=== PATIENT | female | born 1970 | race Caucasian/White ===

== ENCOUNTER 2024-03-07 11:55 | Outpatient (OUT) | payer OTHER, SELFPAY ==
[2024-03-07 12:39] LABS: Basophils Absolute Auto 0.1 10^3/uL (0.0-0.1); Basophils Percent Auto 1.6 % (0.2-2.0); Eosinophils Percent Auto 0.3 % (0.9-7.0); Hematocrit 51.6 % (36.0-48.0); Hemoglobin 17.6 g/dL (12.0-16.0); Immature Granulocytes Abs Auto 0.03 10^3/uL (0.00-0.03); Immature Granulocytes Pct Auto 0.5 % (0.0-0.5); Lymphocytes Absolute Auto 1.4 10^3/uL (1.2-3.8); Lymphocytes Percent Auto 22.8 % (20.5-60.0); Mean Corpuscular HGB Conc 34.1 g/dL (29.9-35.2); Mean Corpuscular Hemoglobin 33.3 pg (26.7-34.0); Mean Corpuscular Volume 97.7 fL (81.0-99.0); Mean Platelet Volume 9.6 fL (9.5-13.5); Monocytes Absolute Auto 0.4 10^3/uL (0.3-0.8); Monocytes Percent Auto 6.2 % (1.7-12.0); Neutrophils Absolute Auto 4.3 10^3/uL (1.4-6.5); Neutrophils Percent Auto 68.6 % (43.0-75.0); Platelet Count 336 10^3/uL (150-450); Red Blood Count 5.28 10^6/uL (4.20-5.40); Red Cell Distribution Width 13.1 % (11.0-15.0); White Blood Count 6.3 10^3/uL (4.0-11.0)
[2024-03-07 15:59] LABS: Estimated Average Glucose 88 mg/dL; Glycohemoglobin A1C 4.7 % (4.5-6.2)
[2024-03-07 16:03] LABS: Alanine Aminotransferase 62 U/L (14-59); Albumin Globulin Ratio 1.5; Albumin Level 4.7 g/dL (3.4-5.0); Alkaline Phosphatase 89 U/L (46-116); Anion Gap 16.9; Aspartate Amino Transferase 57 U/L (15-37); BUN Creatinine Ratio 8.2; Bilirubin Total 0.6 mg/dL (0.2-1.0); Calcium 9.6 mg/dL (8.5-10.1); Carbon Dioxide 26.1 mmol/L (21.0-32.0); Chloride 99 mmol/L (98-107); Chol HDL Ratio 1.7; Cholesterol 195 mg/dL (<=200); Estimated GFR (African America >60 (>=60); Estimated GFR (Non-African Ame >60 (>=60); Free T3 2.81 pg/mL (2.18-3.98); Globulin 3.2 g/dL; Glucose 79 mg/dL (74-106); HDL Cholesterol 117 mg/dL (40-60); Sodium 138 mmol/L (136-145); Total Protein 7.9 g/dL (6.4-8.2); Triglycerides 41 mg/dL (<=150); VLDL CHOLESTEROL 8.2 mg/dL
[2024-03-08 05:10] LABS: Insulin 1.3 uIU/mL (2.6-24.9)
== END 2024-03-07 11:56 | disposition home or self-care (01) ==
LOC: LAB 12:00
PROVIDERS: PCP Nurse Practitioner Family; Visit Provider Nurse Practitioner Family
DX: J44.9 Chronic obstructive pulmonary disease, unspecified (principal)
CPT/HCPCS: 36415; 80053; 80061; 82306; 83036; 83525; 84436; 84443; 84481; 85025

== ENCOUNTER 2024-04-10 13:54 | Outpatient (OUT) | payer OTHER, SELFPAY ==
--- NOTE | 2024-04-10 13:54 | CA_ITS ---
Patient Name: ROSE CASTELLON MR#: [id number] : 1970 Exam Date: 04/10/2024 Ordering Doctor: KULWANT QUEEN M.D. ECHOCARDIOGRAM REPORT PROCEDURE: CA ECHO DOPPLER COMPLETE INDICATIONS: PÉREZ COMPARISON: None. DESCRIPTION: COMPLETE ECHOCARDIOGRAM Real-time transthoracic echocardiography with 2D, M-mode, spectral and color flow Doppler performed. QUALITY: Technical quality was good. LEFT VENTRICLE: Normal size. Mild concentric left ventricular hypertrophy. Global left ventricular systolic function is Normal. Visual estimation of left ventricular ejection fraction is 50-55%. No wall motion abnormalities. LV EF: 50-55% DIASTOLIC: Undetermined ATRIAL SEPTUM: appears intact LEFT ATRIUM: Severe dilatation. RIGHT ATRIUM: Mild dilatation. RIGHT VENTRICLE: Normal chamber size. Normal right ventricular systolic function. TRICUSPID VALVE:Normal mobility and thickness. No stenosis with trivial regurgitation. Mild pulmonary hypertension.RVSP 40mmHg MITRAL VALVE: Mildly thickened with normal mobility. No evidence of mitral valve stenosis. There is no mitral annular calcification. Mild mitral regurgitation. AORTIC VALVE: Normal trileaflet appearance. Thickened aortic valve. Normal leaflet mobility. No evidence of aortic valve stenosis. Mild to moderate aortic regurgitation. AORTIC ROOT: Normal diameter and appearance. PULMONIC VALVE:Normal thickness and mobility. No stenosis. Trivial regurgitation. PERICARDIUM: No evidence of pericardial effusion. IVC: Collapes with inspirations. Normal size. PLEURA: CONCLUSION: Left Ventricle: Normal size. Mild concentric left ventricular hypertrophy. Global left ventricular systolic function is Normal. Visual estimation of left ventricular ejection fraction is 50-55%. No wall motion abnormalities. Mild pulmonary hypertension. RVSP 40mmHg Left atrium severe dilatation. Mild mitral regurgitation Mild to moderate aortic regurgitation. Adult Echocardiography Procedure Report Left Ventricle LVEDD (3.7 - 5.6 cm): 5.34 cm LVESD (2.2 - 4.0 cm): 3.98 cm LVIVS thickness (0.6 - 1.2 cm): 1.09 cm LVPW thickness (0.5 - 1.0 cm): 1.15 cm e': 0.10 m/s E - e': 6.95 LVOT Max Gradient: 7.33 mm[Hg] LVOT Area (cm2): 1.35 m/s Peak Velocity (LVOT): 1.35 m/s Mean Velocity (LVOT): 0.83 m/s LVOT Diameter 1.79 cm Left Ventricular Ejection Fraction: 52.45 % Left Atrium LA Volume Index (2D A2C): 51.38 ml/m2 Left Atrium Systolic Dimension: 4.36 cm Mitral Valve MV E to A Ratio: 1.29, 1.33 MV Max Gradient: MV Mean Gradient: Mitral Valve A-Wave Peak Velocity: 0.51 m/s Mitral Valve E-Wave Peak Velocity: 0.66 m/s Cardiovascular Orifice Area: Right Ventricle RV Internal Diastolic Dimension: 3.59 cm Aorta AO Root Diam: 3.15 cm Ascending Ao Diam: 2.80 cm Aortic Valve AoV Area (Peak Gerson): 2.18 cm2, 2.18 cm2 AoV Area (VTI): 2.53 cm2, 2.53 cm2 Deceleration Chelan: 2.67 m/s2 Pressure Half-Time: 510.14 ms Peak Velocity(Antegrade Flow): 1.56 m/s Peak Gradient(Antegrade Flow): 9.71 mm[Hg] Mean Velocity(Antegrade Flow): 1.02 m/s Mean Gradient(Antegrade Flow): 4.61 mm[Hg] Velocity Time Integral: 29.28 cm Tricuspid Valve Peak Velocity (Regurgitant Flow): 2.28 m/s, 2.80 m/s, 3.03 m/s Peak Velocity: Pulmonic Valve Mean Gradient: 2.30 mm[Hg], 2.38 mm[Hg], 2.79 mm[Hg] Mean Velocity: 0.71 m/s, 0.73 m/s, 0.79 m/s Peak Velocity: 1.05 m/s Peak Gradient: 4.09 mm[Hg], 4.09 mm[Hg], 5.09 mm[Hg] Right Atrium Right Atrium Systolic Pressure: 42.84 ml, 42.84 ml Dictated by: Marley Bowie MD on 04/10/2024 at 16:57 Approved by: Marley Bowie MD on 04/10/2024 at 17:08
== END 2024-04-10 13:55 | disposition home or self-care (01) ==
LOC: CARD 13:54
PROVIDERS: PCP Nurse Practitioner Family; Visit Provider Internal Medicine Cardiovascular Disease
DX: R06.09 Other forms of dyspnea (principal)
CPT/HCPCS: 93306; 93356

== ENCOUNTER 2025-05-14 10:02 | Outpatient (OUT) | payer OTHER, SELFPAY ==
--- OUTSIDE RECORDS SUMMARY | 2025-05-14 10:20 | XMS_ITS | CCD ---
Author Organization [facility] CliniSyny Care Team Providers Care Ophthalmic Lens Inspector Name Role Phone PAY, GUNNER Unavailable Unavailable PAY, GUNNER Unavailable Unavailable PAY, GUNNER Unavailable Unavailable NBA WHITE Unavailable Unavailable LISBET SALCEDO Unavailable Unavailable LISBET SALCEDO Unavailable Unavailable REQUEST, NONE LISTED Unavailable Unavailable LISBET SALCEDO Unavailable Unavailable TITI THURMAN Unavailable Unavailable RISHABH BUENO Unavailable Unavailable Marvin Erazo Unavailable Emanuel GONZALEZ-AUDITOR, Ligia S Primary Care Provider SILVIA HAMILTON Attending Unavailable JORDEN BOSWELL Referring Unacurtis PEGUEROMER, LIGIA S Primary Care Unavailable Elbert RADIOTELEGRAPH OPERATOR-Jorden LYNNE Primary Care Provider Elbert GONZALEZJorden LYNNE Primary Care Provider Emanuel RADIOTELEGRAPH OPERATOR-MAGED Ligia S Primary Care Provider Cindy Perez MD Primary Care Provider SHAHRIAR ROSALES Attending Unavailable EMANUEL, LIGIA S Referring Unavailable EMANUEL, LIGIA S Primary Care Unavailable EMANUEL, LIGIA S Referring Unavailable EMANUEL, LIGIA S Primary Care Unavailable SHAHRIAR ROSALES Referring Unavailable EMANUEL, LIGIA S Primary Care Unavailable EMANUEL, LIGIA S Referring Unavailable DELFIN, CINDY Primary Care Unavailable KAREN DIAMOND Admitting Unavailable KAREN DIAMOND Attending Unavailable DELFIN, CINDY Primary Care Unavailable TRESA RENO Attending Unavailable SELINS AZIZ Referring Unavailable EMANUEL, LIGIA S Primary Care Unavailable SELINSMARVIN Referring Unavailable EMANUEL, LIGIA S Primary Care Unavailable CHAPIS EDGAR Referring Unavailable EMANUEL, LIGIA S Primary Care Unavailable LOVE RITTER Attending Unavailable LOVE RITTER Referring Unavailable EMANUEL, LIGIA S Primary Care Unavailable SILVIA HAMILTON Referring Unavailable EMANUEL, LIGIA S Primary Care Unavailable DELFIN, CINDY Referring Unavailable EMANUEL, LIGIA S Primary Care Unavailable DELFIN, CINDY Referring Unavailable EMANUEL, LIGIA S Primary Care Unavailable ANGELES PERALES Attending Unavailable DELFIN, CINDY Referring Unavailable DELFIN, CINDY Primary Care Unavailable SHAHRIAR ROSALES Attending Unavailable SHAHRIAR ROSALES Referring Unavailable DELFIN, CINDY Primary Care Unavailable ANGELES PERALES Attending Unavailable DELFIN, CINDY Referring Unavailable DELFIN, CINDY Primary Care Unavailable SHAHRIAR ROSALES Referring Unavailable DELFIN, CINDY Primary Care Unavailable JOSE MANUEL GALICIA Attending Unavailable VENNEPUREDDY, LUIS Referring Unavailable DELFIN, CINDY Primary Care Unavailable VENNEPUREDDY, LUIS Attending Unavailable VENNEPUREDDY, LUIS Referring Unavailable DELFIN, CINDY Primary Care Unavailable VENNEPUREDDY, LUIS Attending Unavailable SELF Referring Unavailable DELFIN, CINDY Primary Care Unavailable Allergies Allergy Classification Reported Allergen(s) Allergy Type Date of Onset Reaction(s) Facility (5 sources) Gadolinium-Cont aining Contrast Media; Translations: [GADOLINIUM-CON TAINING CONTRAST MEDIA] Propensity to adverse reactions to drug 5 Hives, Other (See Comments) [facility] Medications Current Medications Medication Drug Class(es) Dates Sig (Normalized) Sig (Original) aspirin 81 mg delayed release oral tablet (8 sources) Platelet Aggregation Inhibitor, Nonsteroidal Anti-inflammatory Drug Start: 12-03-2024 take 1 tablet by mouth once daily Aspirin 81 mg tablet,delayed release (DR/EC) Active 81 MG PO Daily December 03, 2024 12:00am cholecalciferol 0.05 mg oral tablet (20 sources) Vitamin D Start: 06-18-2024 take 1 tablet by mouth once daily Cholecalciferol (Vitamin D3) 50 mcg (2,000 unit) tablet Active 50 MCG PO Daily June 18, 2024 1:00am Start: 01-10-2020 End: 04-18-2025 take 1 tablet by mouth in the morning cholecalciferol, vitamin D3, 2,000 units tablet Take 1 tablet (2,000 Units total) by mouth in the morning. 30 tablet 1 04/18/2025 Active take 1 capsule by mo [facility] every twenty-four hours Vitamin D3 50 MCG (1999 UT) 1 capsule Orally Once a day Active doxycycline hyclate 100 mg oral capsule (3 sources) Tetracycline-class Drug Start: 03-06-2025 End: 03-20-2025 take 1 capsule by mouth in the morning, then take 1 capsule by mouth at bedtime doxycycline (VIBRAMYCIN) 100 mg capsule Take 1 capsule (100 mg total) by mouth in the morning and 1 capsule (100 mg total) before bedtime. Do all this for 14 days. 28 capsule 03/06/2025 03/17/2025 Discontinued medical marijuana (16 sources) medical marijuan a Inhale. Active medical marijuan a Inhale. 0 Active multivitamin (THERAGRAN) tablet (17 sources) Start: 04-18-2025 take 1 tablet by mouth in the morning multivitamin (THERAGRAN) tablet Take 1 tablet by mouth in the morning. 30 tablet 1 04/18/2025 Active Start: 05-02-2023 End: 04-18-2025 multivitamin (THERAGRAN) tab let 05/02/2023 04/18/2025 Discontinued (Reorder) Start: 05-02-2023 multivitamin ( THERAGRAN) tablet 05/02/2023 Active Start: 05-02-2023 take 1 tablet by bentley th once daily multivitamin (THERAGRAN) tablet TAKE 1 TABLET BY MOUTH EVERY DAY 05/02/2023 Active Start: 05-02-2023 take 1 tablet by bentley th once daily multivitamin (THERAGRAN) tablet TAKE 1 TABLET BY MOUTH EVERY DAY 0 05/02/2023 Active Multivitamin preparation (1 source) take 1 tablet by mouth once daily Multi Vitamin - 1 tablet Orally Once a day Active Multivitamin tablet (2 sources) Start: 06-18-2024 take 1 tablet by mouth once daily Multivitamin tablet Active 1 TAB PO Daily June 18, 2024 1:00am Start: 06-18-2024 take 1 tablet by bentley th once daily Multivitamin tablet Active 1 TAB PO Daily June 18, 2024 12:00am predniSONE 20 mg oral tablet (3 sources) Start: 03-06-2025 End: 03-20-2025 take 1 tablet by mouth once daily, then take 0.5 tablet by mouth once daily predniSONE (DELTASONE) 20 mg tablet Take 1 tablet (20 mg total) by mouth daily for 7 days, THEN 0.5 tablets (10 mg total) daily for 7 days. 11 tablet 03/06/2025 03/17/2025 Discontinued 60 actuat tiotropium 0.0025 mg/actuat inhalation spray (19 sources) Anticholinergic Start: 06-18-2024 Tiotropium Bro mide (Spiriva Respimat) 2.5 mcg/actuation mist Active INHALATION June 18, 2024 1:00am Start: 08-03-2021 take 2 puff(s) by mo uth once daily SPIRIVA RESPIMAT 2.5 mcg/actuation mist INHALE 2 PUFFS BY MOUTH DAILY 4 g 11 08/03/2021 Active take 2 puff(s) by in halation once daily Spiriva Respimat 2.5 MCG/ACT 2 puffs Inhalation Once a day Active Completed/Discontinued Medications Medication Drug Class(es) Dates Sig (Normalized) Sig (Original) albuterol 0.83 mg/ml inhalation solution (12 sources) beta2-Adrenergic Agonist Start: 09-26-2019 End: 03-07-2025 albuterol (PROVENTIL,VENTOLIN ) nebulizer solution 2.5 mg clotrimazole 10 mg/ml topical cream (12 sources) Azole Antifungal Start: 03-08-2023 End: 03-07-2025 clotrimazole (LOTRIMIN) 1 % cream 03/08/2023 03/07/2025 Discontinued (Therapy completed) Start: 03-08-2023 clotrimazole ( LOTRIMIN) 1 % cream APPLY TO THE AFFECTED AREA(S) TWICE DAILY NEEDED until healed 03/08/2023 Active Problems Active Problems Problem Classification Problem Date Documented Date Episodic/Chronic Alcohol-related disorders (1 source) Alcohol dependence, uncomplicated; Translations: [ALCOHOL DEPENDENCE UNCOMPLICATED] Onset: 05-01-2017 Chronic Anxiety disorders (1 source) Anxiety disorder, unspecified; Translations: [ANXIETY DISORDER UNSPECIFIED] Onset: 06-13-2017 Chronic Cancer of bronchus; lung (9 sources) Carcinoma of lung; Translations: [Malignant neoplasm of unspecified part of right bronchus or lung] Onset: 03-17-2025 03-17-2025 Chronic Chronic kidney disease (5 sources) Chronic kidney disease stage 3A ; Translations: [Stage 3a chronic kidney disease] 10-07-2023 Chronic Chronic kidney disease (2 sources) Chronic kidney disease; Translations: [Chronic kidney disease, stage 3a] Onset: 06-12-2024 Chronic obstructive pulmonary disease and bronchiectasis (20 sources) Chronic obstructive pulmonary disease, unspecified; Translations: [Chronic obstructive lung disease] Onset: 12-21-2016 12-21-2016 Chronic Coronary atherosclerosis and other heart disease (18 sources) Atherosclerotic heart disease of [place] coronary artery without angina pectoris; Translations: [Old myocardial infarction] Onset: 05-20-2014 04-01-2020 Chronic Disorders of lipid metabolism (19 sources) Mixed hyperlipidemia; Translations: [Mixed hyperlipidemia] Onset: 05-20-2014 10-07-2023 Chronic Essential hypertension (20 sources) Hypertensive disorder; Translations: [Essential (primary) hypertension] Onset: 06-16-2023 10-07-2023 Chronic Hypertension with complications and secondary hypertension (7 sources) Arteriolar nephrosclerosis; Translations: [Hypertensive chronic kidney disease with stage 1 through stage 4 chronic kidney disease, or unspecified chronic kidney disease] Onset: 06-12-2024 Chronic Lymphadenitis (2 sources) Hilar lymphadenopathy ; Translations: [Localized enlarged lymph nodes] Onset: 03-10-2025 03-06-2025 Episodic Miscellaneous mental health disorders (16 sources) Mental disorder; Translations: [Mental disorder, not otherwise specified] 08-25-2018 Chronic Nonspecific chest pain (18 sources) Chest pain; Translations: [Other chest pain] Onset: 04-15-2021 04-15-2021 Episodic Nutritional deficiencies (7 sources) Vitamin D deficiency; Translations: [Vitamin D deficiency, unspecified] Onset: 06-12-2024 Chronic Other female genital disorders (16 sources) History of abnormal cervical Papanicolaou smear ; Translations: [Personal history of other diseases of the female genital tract] 08-25-2018 Episodic Other lower respiratory disease (1 source) Hemoptysis; Translations: [Hemoptysis] 03-06-2025 Episodic Other lower respiratory disease (3 sources) Shortness of breath; Translations: [Shortness of breath] Onset: 03-06-2025 Episodic Other lower respiratory disease (2 sources) Hemoptysis; Translations: [Hemoptysis] Onset: 02-24-2025 Episodic Other lower respiratory disease (1 source) Cough Onset: 03-06-2025 Episodic Other lower respiratory disease (1 source) Wheezing Onset: 03-06-2025 Episodic Other lower respiratory disease (1 source) Shortness of breath Onset: 03-06-2025 Episodic Other nervous system disorders (16 sources) Paresthesia of hand ; Translations: [Paresthesia of skin] 08-25-2018 Episodic Other screening for suspected conditions (not mental disorders or infectious disease) (3 sources) CT of chest abnormal; Translations: [Abnormal findings on diagnostic imaging of other specified body structures] Onset: 03-06-2025 03-06-2025 Chronic Residual codes; unclassified (16 sources) Tobacco use and exposure - finding; Translations: [Tobacco use] 08-25-2018 Episodic Screening and history of mental health and substance abuse codes (1 source) Tobacco smoking behavior - finding 06-18-2024 Chronic Substance-related disorders (19 sources) Nicotine dependence, cigarettes, uncomplicated; Translations: [Drug abuse] Onset: 06-13-2017 08-25-2018 Chronic Unclassified (1 source) Annual Exam Onset: 08-05-2024 Unclassified (2 sources) Autogenerated Problem Onset: 03-07-2025 03-07-2025 Unclassified (1 source) Pulmonary nodule Onset: 03-10-2025 Unclassified (2 sources) New Patient Onset: 03-06-2025 Unclassified (1 source) Testing Onset: 03-06-2025 Past or Other Problems Problem Classification Problem Date Documented Date Episodic/Chronic Acute myocardial infarction (16 sources) Acute myocardial infarction; Translations: [Acute myocardial infarction, unspecified] Resolved: 06-16-2023 06-16-2023 Chronic Fluid and electrolyte disorders (1 source) Dehydration; Translations: [DEHYDRATION] Onset: 06-13-2017 Episodic Mood disorders (16 sources) Bipolar disorder; Translations: [Bipolar disorder, unspecified] Onset: 12-21-2016 Resolved: 06-20-2017 06-20-2017 Chronic Mood disorders (16 sources) Mood disorders Onset: 04-10-2019 04-10-2019 Nausea and vomiting (4 sources) Nausea with vomiting, unspecified; Translations: [NAUSEA WITH VOMITING UNSPECIFIED] Onset: 06-09-2017 Episodic Nonmalignant breast conditions (16 sources) Mammographic breast tissue appearance; Translations: [Dense breast tissue on mammogram] Onset: 05-19-2021 05-19-2021 Episodic Other aftercare (16 sources) Marijuana user; Translations: [Other intermediate (current) drug therapy] Onset: 12-21-2016 01-24-2019 Episodic Other screening for suspected conditions (not mental disorders or infectious disease) (5 sources) Patient encounter status; Translations: [Encounter for screening for malignant neoplasm of cervix] Onset: 06-19-2024 08-03-2023 Episodic Residual codes; unclassified (16 sources) At high risk for breast cancer; Translations: [Other specified personal risk factors, not elsewhere classified] Onset: 05-23-2022 05-23-2022 Episodic Residual codes; unclassified (16 sources) Family history of malignant neoplasm of uterus; Translations: [Family history of malignant neoplasm of other genital organs] Onset: 06-07-2023 06-07-2023 Episodic Screening and history of mental health and substance abuse codes (18 sources) Tobacco smoking behavior - finding; Translations: [Personal history of nicotine dependence] Onset: 05-19-2021 05-19-2021 Episodic Unclassified (1 source) Hypothermia, not associated with low environmental temperature; Translations: [HYPOTHERMIA NOT W/LOW ENVIR TEMP] Onset: 05-01-2017 Episodic Unclassified (1 source) Patient encounter status 06-18-2024 Results Test Name Value Interpretation Reference Range [facility] ([id number]) 1970 F Date Time Provider Department 05/12/25 DANIKA SAENZ During your visit today, we recorded the following information about you: Danika Saenz LSW 05/13/2025 11:04 AM Addendum SOCIAL WORK FOLLOW UP NOTE: [facility] Date of service:05/12/2025 Sean Maldonado is being seen for a follow up social work visit. Today's visit includes: patient TOPICS ADDRESSED: [facility] PLAN: Continue follow up as needed and Referral to community resource Assigned SW listed in Care Team tab: Yes SW was asked to refer Patient to the [facility]. Referral sent. .PSYCHOSOCIAL SCREENING ASSESSMENT Date of Service: May 13, 2025 Sean Maldonado is a 54 year old female being seen for initial social work assessment. Diagnosis: Lung Cancer New Primary Oncologist: Dr. Bah Radiation Oncologist: Dr. Jose Manuel Galicia Goals of Care: Curative intent Today's visit includes: self/patient Family History of Cancer: not discussed SUPPORT NETWORK: Social Connections: Not on file Marital status: Parent(s): Mother is living Child/Children: Yes. How many? Daughter Hannah 28 and son Rojelio 26 (neither child has a relation with Patient) long term acute care registered nurse arrangements needed: Na Siblings: 1 brother(s) Grandchild(sanjuanita): 1 Home Health Provider: [facility]: [facility] Sonya Identified: not discussed Latter Day/Spirituality: Unknown Are these practices or beliefs that may affect or influence treatment? Unknown EMPLOYMENT/FINANCIAL/H EALTH INSURANCE: Employment: Unemployed Income source: Social Security incremental income (SSI) Insurance: Medicaid active Prescription coverage: Yes [facility] the [facility] N[facility]A Financial Distress: Yes, What assistance is needed? Housing, Utilities, Cost of parking, Medication costs, Medical supplies, Food/meals, and Co-pays : No FOOD INSECURITY Within the past year, have you worried about how you would buy or obtain food? Not Assessed LIVING ARRANGEMENTS: Type: a tiny cabin (uninsulated and without running water; has access to a main house with water). Resides with: Alone Transportation Needs: No Transportation Needs (03/17/2025) Received from [facility] PRAPARE - Transportation Lack of Transportation (Medical): No Lack of Transportation (Non-Medical): No FUNCTIONAL STATUS: Cognitive limitations: none Physical limitations: none Language barrier: No Hearing Impaired: No Speech Impaired: No Visual Impairments: No Special considerations/accommo dations needed: Na HEALTH LITERACY: Do you have difficulty understanding medical instructions or other written materials you receive from you doctor or pharmacy? Not asked Do have difficulty filling out medical forms by yourself? Not asked The following interventions were put into place: NA MEDICATION ADHERENCE: Within the past 2 weeks, have you had difficulty remembering to take your medicine? Not asked Within the past 2 weeks, did you ever miss taking your medications for reasons other than forgetting? No The following interventions were put into place: NA MENTAL HEALTH HISTORY: Yes Diagnosis: anxiety History of combat/trauma: not discussed Intimate Partner Violence: Not on file Substance Use and Treatment History: reported History of Abuse: Yes, Resources/Services Received? Patient reports that she is 22 years sober from crack cocaine. Patient reports daily marijuana use, smokes cigarettes and drinks alcohol. Issues with: Sleep:Yes Eating:Yes Exercising: N/A Stress Management: Yes ADVANCE DIRECTIVES/LEGAL DOCUMENTS: Living Will: Not addressed during this encounter Scanned into [employer]: Not addressed during this encounter Health Care Durable Power of Cardroom Manager: Not addressed during this encounter Scanned into Ze[employer]Controls: Not addressed during this encounter Guardianship: No Scanned into EPIC:No Reasons Advanced Directives were not Addressed: SW did not address due to patient being overwhelmed Advance Care Planning Goals of Care In this encounter: Patient wishes to review Advance Directives at a later time. SW remains available to assist with completion. COPING STATUS: Stress: Not on file Coping Strengths: self advocate able to follow direction consistently over time able to communicate effectively Current affect/mood: anxious, distressed, and difficult or unable to assess Adjustment to diagnosis: experiencing difficulty in adjustment to diagnosis/treatment and impaired understanding due to level of distress BARRIERS/CARE CHALLENGES: Limited support systems Limited/No Income Multiple psychosocial stressors Unsafe living conditions Are barriers/care challenges identified likely to have an impact on the patien (more content not included)... Normal [facility] Tia 05-09-2025 XI Telephone (AVXRPR) SEAN MALDONADO ([id number]) 1970 F Date Time Provider Department 05/09/25 LOVE STACK AVXRPR During your visit today, we recorded the following information about you: Love Stack, RN 05/09/2025 10:29 AM Signed RADIOLOGY PROCEDURE INSTRUCTIONS: You are scheduled for a Mediport, on Tuesday May 13, 2025 You are to arrive at 12:00 pm and check in at [facility]: Radiology Outpatient Desk [id number]. You can expect to be here for 3-4 hours. Address: [place] [address] Diet: Do not eat any solid food after midnight the night before your procedure. You may drink clear liquids until 11:00 am the day of your procedure, which means black coffee, apple juice, tea, jello, Gatorade, or water only. Medications: Please take prescribed medications such as heart, blood pressure, anti-seizure, and chronic pain medications with a sip of clear liquids. Bring your current medication list. Radiology recommends these medication restrictions: If you are taking any medication that is a blood thinner, hypoglycemic, weight loss agent, etc., you may need to hold this medication prior to procedure. Not stopping the medication correctly may result in your procedure being canceled. Special concerns: It is okay to shower/bathe the morning of your procedure. There may be bathing restrictions post procedure. Allergies: Allergies reviewed: Yes Do you have a contrast dye allergy? No. Labs: Lab work needs to be drawn? Yes, you need to have CBC (complete blood count) and CMP (complete metabolic panel) drawn at least one day prior to procedure. Please bring a copy of the results if they are not done at a [facility] facility. Master Automotive Technician/Transportation: How will you be arriving for your procedure? Private car. If you will be arriving via ambulance or public transportation, please call to discuss. You will need a responsible adult to accompany you to and from the procedure. We will verify your ride home upon arrival. Minors/visitors requiring supervision cannot accompany you unless there is another responsible adult with them. Child and/or dependent care arrangements need to be made. If you need to cancel or reschedule your procedure, please call our clinic scheduler: Page Damon and Dahlia [phone]; 8am - 4pm M-F If you have any additional questions please call: [place] Rad[facility] nurses desk at [phone] 8am - 4pm M-F. 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] 04/02/2012 Tibia/fibula fracture, shaft [S82.209A, S82.409*04/02/2012 Humerus shaft fracture [S42.309A] 04/02/2012 Prolonged PTT [R79.1] 07/24/2013 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)*05/08/2025 Encounter Status:Closed by LOVE STACK on 05/09/25 [facility] CNOVSPon 05-08-2025 CNOVSP Visit (SP) Office (HEMASA) SEAN MALDONADO ([id number]) 1970 F Date Time Provider Department 05/08/25 1:20 PM VENNEPUREDDY, LUIS HEMASA During your visit today, we recorded the following information about you: Temperature Pulse Respiration Blood pressure 97.7 degrees 74/minute 16/minute 156/88 Weight 58.2 kg Luis Bah MD 05/08/2025 2:32 PM Signed PATIENT NAME: Sean Maldonado CLINIC NO.: [id number] ATTENDING PHYSICIAN: Luis Bah MD DATE OF [...] BASOP , ABSBASO PATH: Surgical Pathology Order: [id number] Proberta (more content not included)... Normal [facility] CNPNon 05-08-2025 CNPN Telephone (AVXRPR) SEAN MALDONADO ([id number]) 1970 F Date Time Provider Department 05/08/25 ESTELLE MADRIGAL AVXRPR During your visit today, we recorded the following information about you: Estelle Madrigal RN 05/08/2025 5:40 PM Signed Called patient to provide preprocedure instructions. No answer, mailbox full and unable to leave message. 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 Thank you! 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] 04/02/2012 Tibia/fibula fracture, shaft [S82.209A, S82.409*04/02/2012 Humerus shaft fracture [S42.309A] 04/02/2012 Prolonged PTT [R79.1] 07/24/2013 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)*05/08/2025 Encounter Status:Closed by TAMIKO CAMPUZANO on 05/08/25 [facility] Tia 05-07-2025 [facility] SEAN MALDONADO ([id number]) 1970 F Date Time Provider Department 05/07/25 LUIS BAH NCCMARK During your visit today, we recorded the following information about you: Balbina Treadwell 05/07/2025 12:37 PM Signed Sean Maldonado is calling today regarding: She just spoke with her lung doctor and he informed her, that her Pet Scan results show multiple areas of cancer. Patient is very upset and wants to know if Dr Arias has seen the results and has many other questions. Patient has been identified by name and birthdate. Person calling: self Please return the call at [phone]. Luis Hdez MD 05/07/2025 12:41 PM Signed Mariela- Please obtain the pet scan report. F/u with me on 05/12/25. Thank you. Balbina Treadwell 05/07/2025 12:55 PM Signed Called and spoke with patient. Patient is scheduled to see Dr Arias tomorrow 05/08 @ 1:20. 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 TECHNIQUE: PET/CT was performed following intravenous administration of 9.9 mCi F-18 FDG with images obtained from the skull base through the mid thighs. Fasting glucose was 128 mg/dL at the time of administration. CT was performed utilizing free breathing technique and nondiagnostic collimation for the purposes attenuation correction and localization of radiotracer activity. FINDINGS: Physiologic distribution of radiotracer within the neck and frontal soft tissues. No avid or enlarged cervical, supraclavicular or axillary lymph nodes. There are multiple avid and enlarged right hilar and subcarinal lymph nodes compatible with metabolically active neoplasm with maximum SUV of 17.3. There is no avid pulmonary consolidation. Physiologic bowel and urinary activity. No avid or enlarged mesenteric retroperitoneal or pelvic lymph nodes. Multiple irregular calcifications most compatible with chronic calcific pancreatitis. IMPRESSION: 1. Evidence of a large right hilar and mediastinal lymph nodes compatible metabolically active neoplasm. No additional abnormal radiotracer accumulation or scintigraphic evidence of distant metastatic disease. Finalized by Hong Sellers MD on 05/07/2025 8:19 AM [facility] 05-01-2025 [facility] Telephone (KYRIE) SEAN MALDONADO ([id number]) 1970 F Date Time Provider Department 05/01/25 DANIKA SAENZ During your visit today, we recorded the following information about you: Danika Saenz LSW 05/01/2025 3:20 PM Signed SOCIAL WORK FOLLOW UP NOTE: [facility] Date of service:05/01/25 Sean Erica is being seen for a follow up social work visit. Today's visit includes: patient TOPICS ADDRESSED: community resources PLAN: Continue follow up as needed Assigned SW listed in Care Team tab: Yes Patient called and asked if her application for the [facility] was completed and sent. SW emailed her intake application to Marilin Montgomery at the [facility]. SW gave Patient the phone number for the [facility] and encouraged her to call and follow up. Patient mentioned that she was seen yesterday by Dr. Reno, a Cardiology from [facility] at the [facility]. SW asked Medical Records if they were able to scan in any available records from this visit. 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] 04/02/2012 Tibia/fibula fracture, shaft [S82.209A, S82.409*04/02/2012 Humerus shaft fracture [S42.309A] 04/02/2012 Prolonged PTT [R79.1] 07/24/2013 Encounter Status:Closed by DANIKA SAENZ on 05/01/25 Normal [facility] Office Visiton 04-30-2025 Follow-up visit [id number] Sean Maldonado 1970 F Date Provider Department Center 04/30/2025 245-[facility] Family History Problem Relation Age of Onset No Known Problems Mother No Known Problems Father Family Status - Relation Status Age at Mother Alive Father Level of Service:13948 [place] OFFICE/OUTPATIENT ESTABLISHED MOD MDM 30 MIN Reason for Visit and Comments: Follow-up [259739] - Patient is here today for a 1 year. Patient states she hasn't been feeling well. Patient states mar 12 2025 she was diagnosed with stage 2 lung cancer Coronary Artery Disease [187] Hyperlipidemia [182] Hypertension [073465] Normal [facility] CNOVSPon 04-28-2025 CNOVSP Visit (SP) Office (HEMASA) SEAN MALDONADO ([id number]) 1970 F Date Time Provider Department 04/28/25 3:00 PM LUIS BAH During your visit today, we recorded the following information about you: Temperature Pulse Respiration Blood pressure 97.6 degrees 80/minute 16/minute 142/82 Weight 59 kg Luis Bah MD 04/28/2025 4:33 PM Signed PATIENT NAME: Sean Maldonado CLINIC NO.: [id number] ATTENDING PHYSICIAN: Luis Bah MD DATE OF SERVICE: April 28, [address] ROBISON thank you for referring Sean Maldonado for an opinion regarding Lung cancer. CHIEF COMPLAINT: Lung cancer HPI: Sean Maldonado [...] for PET scan on Monday Doing well Current Outpatient Medications Medication Sig cholecalciferol (VITAMIN D3) 50 mcg (2,000 unit) tablet TAKE 1 TABLET BY MOUTH ONCE DAILY IN THE MORNING multivitamin tablet TAKE 1 TABLET BY MOUTH ONCE DAILY IN THE MORNING No current facility-administered medications for this visit. ALLERGIES Allergen Reactions Gadolinium-Containi* Angioedema No past medical history on file. No past surgical history on file. No family history on file. SOCIAL HISTORY[1] REVIEW OF SYSTEMS GENERAL: No [...] BASOP , ABSBASO PATH: Surgical Pathology Order: [id number] Component 1 mo ago Case Report Surgical Pathology Report Case: [id number] Authorizing Provider: Karen Diamond MD Collected: 03/10/2025 0956 Ordering Location: [facility] Received: 03/10/2025 1049 - Endoscopy Pathologist: Abhinav Pierre MD Specimen: Lung, Right, RUL Final Diagnosis 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 (more content not included)... Normal [facility] CNPNon 04-28-2025 CNPN Telephone (NCCAP) EFRAAGATASEAN ([id number]) 1970 F Date Time Provider Department 04/28/25 LUIS BAH During your visit today, we recorded the following information about you: Nury Hui 04/28/2025 4:07 PM Signed Sean Maldonado [id number] Ambreengenesis Maldonado has been referred to Cardothoracic Surgery. By Dr. Bah for lung cancer. Please assist in getting the patient scheduled. MARIO ALBERTO Forrest Rebecca, ALEKSANDR 04/29/2025 7:03 AM Signed Thoracic Surgery Consultation - review of records for appointment scheduling Received medical records from the office of Luis Bah [address] [place] [address] [place] [address] Patient is being referred to Unspecified Thoracic Surgeon by Luis Bah for Lung Cancer Outside hospital records Care Everywhere Pathology: Procedures: bronch 03/10/2025 Imaging PET/CT: pending WEDNESDAY 05/02 CT (chest) 02/24/2025 No airspace disease. Sequela of old granulomatous disease. There is abnormal bronchial wall thickening in the right upper lobe bronchus with enlarged adjacent right hilar lymph nodes measuring up to 1.8 x 1.1 cm in size (axial image 54). Pancreatic head parenchymal calcifications related to sequela of chronic pancreatitis. Unchanged mildly enlarged left para-aortic lymph node. No pleural or pericardial effusions. The thoracic aorta is unremarkable. The central pulmonary arteries are unremarkable. Coronary artery calcifications. Visualized structures in the lower neck are unremarkable. Visualized chest wall structures are unremarkable. No acute osseous abnormalities or aggressive osseous lesions. IMPRESSION: * Abnormal bronchial wall thickening in the right upper lobe bronchus with adjacent enlarged right hilar lymph nodes. Findings could be infectious or malignant in etiology. Recommend correlating with bronchoscopy. MRI: 04/03/2025 * Tiny focus of enhancement along the right posterior frontal sinus, may be extra-axial or alignment of posterior sinus, not excluding a tiny meningioma. Dural metastasis would be considered less likely. * No additional intraparenchymal enhancing lesion, mass effect or midline shift. * Mild burden of scattered T2/FLAIR hyperintensities suggestive of chronic microvascular ischemic changes. Cardiopulmonary Testing PFT's/Six: requested Cardiac:requested Office Notes/Consults Visit (SP) Office with Luis Bah MD (04/28/2025) Sean Maldonado is a 54 year old year old female referred to us for right lung squamous cell carcinoma. PLAN: 1. 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) - ICD9: 162.2, ICD10: C34.01 - CT scan with contrast 02/2025 showed: Abnormal [...] 04/03/25 showed no evidence of intracranial mets - I explained to her in detail the treatment options for the likely stage II squamous cell lung cancer including neoadjuvant chemoimmunotherapy followed by surgery followed by adjuvant immunotherapy. -Pulmonary function testing suggest at least mild COPD. FEV1 is 2.2 L, 74% predicted. Expiratory flow rates are reduced. Lung volumes and diffusing capacity are normal. - She is hesitant about the side effects with the neoadjuvant chemotherapy and immunotherapy treatments. - Advised her to proceed with the surgery upfront if the PET scan does not show any evidence of metastasis. - She might consider doing adjuvant chemotherapy and immunotherapy after the recovery from the surgery. - All her questions answered in detail - F/u in 2 weeks. History of: No family history on file. No past medical history on file. No past surgical history on file. SOCIAL HISTORY[1] Request consult with dr flores p/d/s ecg stress WO imaging (insurance driven) echo Valerie Flannery RN [1] Social History Tobacco Use Smoking status: Every Day Smokeless tobacco: Never Substance Use Topics Alcohol use: Yes Drug use: No Nury Hui 05/02/2025 1:16 PM Signed Patient is scheduled with Dr. Flores on 05/30/25. Nury Hui [facility] Referring Provider: LUIS BAH [[id number]] Allergies As of Date: 04/28/2025 Noted Allergy Reaction GADOLINIUM-CONTAINING CONTRAST ME*04/28/2025 18 - Angioedema Date Reviewed: 04/30/2013 Reviewed by: Mckenzie Mahoney - Fully Assessed Reason for Visit: Referral Request [124] Consult [173] (more content not included)... Normal [facility] MR BRAIN W WO CONTon 025 MR BRAIN W WO CONT MR BRAIN W WO CONT STUDY: MR BRAIN W WO CONT INDICATION: Malignant neoplasm of lung, unspecified laterality, unspecified part of lung (CMS-HCC). TECHNIQUE: * Routine multiplanar multisequence MR imaging of the brain was performed with and without intravenous contrast. FINDINGS: No acute infarct, mass effect, midline shift or extra-axial fluid collection. Tiny focus of susceptibility artifact near the left mesial temporal lobe, nonspecific. Brain volume, ventricles, sulci and cisterns are age appropriate. Mild burden of periventricular, subcortical T2/FLAIR hyperintensities which may reflect sequela of chronic microvascular ischemic changes. Bilateral globes, orbits are unremarkable. Mild left nasal septal deviation. Right reese bullosa. Paranasal sinuses, mastoid air cells are clear. Major intracranial arterial flow voids appear preserved by technique. Small focus of enhancement measures 3 mm along the posterior aspect of the right frontal sinus (series 16, image 98). No additional intraparenchymal enhancing lesion. Possible tiny suspected lymph node in the right parotid gland, incompletely assessed. IMPRESSION: * Tiny focus of enhancement along the right posterior frontal sinus, may be extra-axial or alignment of posterior sinus, not excluding a tiny meningioma. Dural metastasis would be considered less likely. * No additional intraparenchymal enhancing lesion, mass effect or midline shift. * Mild burden of scattered T2/FLAIR hyperintensities suggestive of chronic microvascular ischemic changes. Finalized by Manolo Toney on 04/04/2025 2:36 PM Normal [facility] BODY FLUID CELL COUNTon 08-[address] 14 /uL Normal [facility] Comment on above: Order Comment: Pre-o p diagnosis: Pulmonary nodule Assorted lining cells present. Reference values for this fluid type are undefined, as fluid accumulation is considered abnormal. Performed By: #### B FCT #### [facility] ([facility]) [address] [place] [address] 39 /uL Normal [facility] Comment on above: Order Comment: Pre-o p diagnosis: Pulmonary nodule Assorted lining cells present. Reference values for this fluid type are undefined, as fluid accumulation is considered abnormal. Performed By: #### B FCT #### [facility] ([facility]) [address] [place] [address] VIR PM FLUID CLARITY Clear Normal [facility] Comment on above: Order Comment: Pre-o p diagnosis: Pulmonary nodule Assorted lining cells present. Reference values for this fluid type are undefined, as fluid accumulation is considered abnormal. Performed By: #### B FCT #### [facility] ([facility]) [address] [place] [address] VIR PM FLUID COLOR Colorless Normal [facility] Comment on above: Order Comment: Pre-o p diagnosis: Pulmonary nodule Assorted lining cells present. Reference values for this fluid type are undefined, as fluid accumulation is considered abnormal. Performed By: #### B FCT #### [facility] ([facility]) [address] [place] [address] VIR FUNGAL CULTURE INCLUDES DAQUAN AL SMEARon 03-10-2025 FUNGAL CULTURE INCLUDES FUNGAL SMEAR CULTURE RESULTS NO FUNGUS ISOLATED AFTER 4 WEEKS FUNGAL SMEAR No fungal elements seen On Concentrated Smear Normal [facility] Comment on above: Order Comment: Pre-o p diagnosis: Pulmonary nodule Performed By: #### F BRONSON #### [facility] ([facility]) [address] [place] [address] VIR LOWER RESP CULTURE SPUTUM CU LTURE INC GRAM STAINon 03-10-2025 LOWER RESP CULTURE SPUTUM CULTURE INC GRAM STAIN CULTURE RESULTS ENTEROBACTER CLOACAE COMPLEX Moderate Enterobacter cloacae complex GRAM STAIN 0 White Blood Cells/LPF 1 to 9 Squamous Epithelial Cells/LPF 0 Ciliated Epithelial Cells/LPF No organisms seen [ S = SUSCEPTIBLE R = RESISTANT I = INTERMEDIATE S-DO = Susceptible-dose dependent NS = Non-suscceptible NO = No Interpretation ] Organism: ENTEROBACTER CLOACAE COMPLEX Antibiotic Interpretation CHIDI Status PIPERACIL/TAZOBACTAM S <=^4.0 F Cefazolin (non-urinary) R >=^32.0 F Cefazolin (urinary) R >=^32.0 F Cefepime S <=^0.12 F Gentamicin S <=^1.0 F Ciprofloxacin S <=^0.06 F Levofloxacin S <=^0.12 F Susceptible [facility] Comment on above: Order Comment: Pre-o p diagnosis: Pulmonary nodule Performed By: #### L RT #### [facility] ([facility]) [address] [place] [address] VIR PALUMBO GENERIC ORDERon 025 PAL[place]BO GENERIC ORDER MGO PALUMBO GENERIC ORD ER Cancelled Normal [facility] Comment on above: Order Comment: Pre-o p diagnosis:Pulmonary nodule REFLEXED BODY FLUID CELL COU NT DIFFERENTIALon 08-04-2025 FLUID LYMPHOCYTE RELATIVE PERCENT BY MANUAL COUNT 5 % Normal [facility] Comment on above: Order Comment: Pre-o p diagnosis: Pulmonary nodule Performed By: #### B FCT1 #### [facility] ([facility]) [address] [place] [address] VIR FLUID MACROPHAGE RELATIVE PERCENT BY MANUAL COUNT 19 % Normal [facility] Comment on above: Order Comment: Pre-o p diagnosis: Pulmonary nodule Performed By: #### B FCT1 #### [facility] ([facility]) [address] [place] [address] VIR FLUID NEUTROPHILS RELATIVE PERCENT BY MANUAL COUNT 76 % Normal [facility] Comment on above: Order Comment: Pre-o p diagnosis: Pulmonary nodule Performed By: #### B FCT1 #### [facility] ([facility]) [address] [place] [address] VIR TOTAL CELLS COUNTED 100 % Normal [facility] Comment on above: Order Comment: Pre-o p diagnosis: Pulmonary nodule Performed By: #### B FCT1 #### [facility] ([facility]) [address] [place] [address] VIR APTTon 03-06-2025 aPTT Coag (Bld) [Time] 28 s Normal 26-37 [facility] Comment on above: Performed By: #### P TT #### [facility] ([facility]) [address] [place] [address] VIR CBC WITH AUTO DIFFERENTIALon 03-06-2025 BASOPHILS ABSOLUTE COUNT (10*3/UL) BY AUTOMATED COUNT 0.0 10*3/uL Normal 0.0-0.2 [facility] Comment on above: Performed By: #### C BCA #### [facility] ([facility]) [address] [place] [address] VIR BASOPHILS RELATIVE PERCENT BY AUTOMATED COUNT 0.5 % Normal [facility] Comment on above: Performed By: #### C BCA #### [facility] ([facility]) [address] [place] [address] VIR CELLAVISION DIFFERENTIAL TYPE AUTOMATED DIFFERENTIAL Normal [facility] Comment on above: Performed By: #### C BCA #### [facility] ([facility]) [address] [place] [address] VIR Eosinophils (Bld) [#/Vol] 0.0 10*3/uL Normal 0.0-0.4 [facility] Comment on above: Performed By: #### C BCA #### [facility] ([facility]) [address] [place] [address] VIR EOSINOPHILS RELATIVE PERCENT BY AUTOMATED COUNT 0.1 % Normal [facility] Comment on above: Performed By: #### C BCA #### [facility] ([facility]) [address] [place] [address] VIR Erythrocyte distribution width (RBC) [Ratio] 13.6 % Normal 11.5-15 [facility] Comment on above: Performed By: #### C BCA #### [facility] ([facility]) [address] [place] [address] VIR Hematocrit (Bld) [Volume fraction] 46.4 % Normal 35-47 [facility] Comment on above: Performed By: #### C BCA #### [facility] ([facility]) [address] [place] [address] VIR Hemoglobin (Bld) [Mass/Vol] 16.1 g/dL High 11.7-15.5 [facility] Comment on above: Performed By: #### C BCA #### [facility] ([facility]) [address] [place] [address] VIR LYMPHOCYTES ABSOLUTE COUNT (10*3/UL) BY AUTOMATED COUNT 1.6 10*3/uL Normal 1.0-3.5 [facility] Comment on above: Performed By: #### C BCA #### [facility] ([facility]) [address] [place] [address] VIR LYMPHOCYTES RELATIVE PERCENT BY AUTOMATED COUNT 17.3 % Normal [facility] Comment on above: Performed By: #### C BCA #### [facility] ([facility]) [address] [place] [address] VIR MCH (RBC) [Entitic mass] 33.4 pg Normal 27-34 [facility] Comment on above: Performed By: #### C BCA #### [facility] ([facility]) [address] [place] [address] VIR MCHC (RBC) [Mass/Vol] 34.6 g/dL Normal 32-36 [facility] Comment on above: Performed By: #### C BCA #### [facility] ([facility]) [address] [place] [address] VIR MCV (RBC) [Entitic vol] 96 fL Normal 80-100 [facility] Comment on above: Performed By: #### C BCA #### [facility] ([facility]) [address] [place] [address] VIR MONOCYTES ABSOLUTE COUNT (10*3/UL) BY AUTOMATED COUNT 0.6 10*3/uL Normal 0.0-0.9 [facility] Comment on above: Performed By: #### C BCA #### [facility] ([facility]) [address] [place] [address] VIR MONOCYTES RELATIVE PERCENT BY AUTOMATED COUNT 6.1 % Normal [facility] Comment on above: Performed By: #### C BCA #### [facility] ([facility]) [address] [place] [address] VIR NEUTROPHILS ABSOLUTE COUNT BY AUTOMATED COUNT 7.2 10*3/uL High 1.5-6.6 [facility] Comment on above: Performed By: #### C BCA #### [facility] ([facility]) [address] [place] [address] VIR NEUTROPHILS RELATIVE PERCENT BY AUTOMATED COUNT 76.0 % Normal [facility] Comment on above: Performed By: #### C BCA #### [facility] ([facility]) [address] [place] [address] VIR Platelet mean volume (Bld) [Entitic vol] 8.7 fL Normal 7-12 [facility] Comment on above: Performed By: #### C BCA #### [facility] ([facility]) [address] [place] [address] VIR Platelets (Bld) [#/Vol] 342 10*3/uL Normal 150-450 [facility] Comment on above: Performed By: #### C BCA #### [facility] ([facility]) [address] [place] [address] VIR RBC COUNT 4.81 X10E12/L Normal 3.8-5.2 [facility] Comment on above: Performed By: #### C BCA #### [facility] ([facility]) [address] [place] [address] VIR WBC (Bld) [#/Vol] 9.5 10*3/uL Normal 4-11 [facility] Comment on above: Performed By: #### C BCA #### [facility] ([facility]) [address] [place] [address] VIR COMPREHENSIVE METABOLIC PANE Conor 03-06-2025 Albumin [Mass/Vol] 5.2 g/dL Normal 3.2-5.3 [facility] Comment on above: Performed By: #### C MP #### [facility] ([facility]) [address] [place] [address] VIR ALP [Catalytic activity/Vol] 86 U/L Normal 39-130 [facility] Comment on above: Performed By: #### C MP #### [facility] ([facility]) [address] [place] [address] VIR ALT [Catalytic activity/Vol] 21 U/L Normal <=31 [facility] Comment on above: Performed By: #### C MP #### [facility] ([facility]) [address] [place] [address] VIR Anion gap [Moles/Vol] 11 mmol/L Normal 5-15 [facility] Comment on above: Performed By: #### C MP #### [facility] ([facility]) [address] [place] [address] VIR AST [Catalytic activity/Vol] 23 U/L Normal <=41 [facility] Comment on above: Performed By: #### C MP #### [facility] ([facility]) [address] [place] [address] VIR Bilirubin [Mass/Vol] 0.5 mg/dL Normal 0.3-1.2 [facility] Comment on above: Performed By: #### C MP #### [facility] ([facility]) [address] [place] [address] VIR Calcium [Mass/Vol] 10.4 mg/dL Normal 8.5-10.5 [facility] Comment on above: Performed By: #### C MP #### [facility] ([facility]) [address] [place] [address] VIR Chloride [Moles/Vol] 96 mmol/L Low 98-109 [facility] Comment on above: Performed By: #### C MP #### [facility] ([facility]) [address] [place] [address] VIR CO2 [Moles/Vol] 29 mmol/L Normal 22-32 [facility] Comment on above: Performed By: #### C MP #### [facility] ([facility]) [address] [place] [address] VIR Creatinine [Mass/Vol] 0.77 mg/dL Normal 0.40-1.00 [facility] Comment on above: Result Comment: METH OD TRACEABLE TO IDMS STANDARD Performed By: #### C MP #### [facility] ([facility]) [address] [place] [address] VIR EGFR (CKD-EPI) NON-RACE DEPENDENT >^90 Normal >=60 [facility] Comment on above: Result Comment: Repo rted eGFR is based on the CKD-EPI 2020 equation that does not use a race coefficient. Performed By: #### C MP #### [facility] ([facility]) [address] [place] [address] VIR Glucose [Mass/Vol] 148 mg/dL High 65-99 [facility] Comment on above: Performed By: #### C MP #### [facility] ([facility]) [address] [place] [address] VIR Potassium [Moles/Vol] 4.4 mmol/L Normal 3.5-5.0 [facility] Comment on above: Performed By: #### C MP #### [facility] ([facility]) [address] [place] [address] VIR Protein [Mass/Vol] 7.6 g/dL Normal 6.0-8.0 [facility] Comment on above: Performed By: #### C MP #### [facility] ([facility]) [address] [place] [address] VIR Sodium [Moles/Vol] 136 mmol/L Normal 134-146 [facility] Comment on above: Performed By: #### C MP #### [facility] ([facility]) [address] [place] [address] VIR Urea nitrogen [Mass/Vol] 9 mg/dL Normal 5-23 [facility] Comment on above: Performed By: #### C MP #### [facility] ([facility]) [address] [place] [address] VIR IMMUNOGLOBULINSon 03-06-2025 IgA [Mass/Vol] 185 mg/dL Normal 68-378 [facility] Comment on above: Performed By: #### I MGB #### [facility] ([facility]) [address] [place] [address] VIR IgG [Mass/Vol] 856 mg/dL Normal 635-1741 [facility] Comment on above: Performed By: #### I MGB #### [facility] ([facility]) [address] [place] [address] VIR IgM [Mass/Vol] 227 mg/dL Normal 45-281 [facility] Comment on above: Performed By: #### I MGB #### [facility] ([facility]) [address] [place] [address] VIR PROTIME AND INRon 03-06-2025 INR 0.9 Normal 0.9-1.2 [facility] Comment on above: Performed By: #### P INR #### [facility] ([facility]) [address] [place] [address] VIR PT Coag (PPP) [Time] 10.5 s Normal 9.8-13.2 [facility] Comment on above: Performed By: #### P INR #### [facility] ([facility]) 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 Forced vital capacity is 85% predicted and FEV1 is 2.2 L, 74% predicted. Expiratory flow rates are mildly reduced. Slow vital capacity and inspiratory capacity are normal Diffusing capacity is normal. Clinical correlation is advised. MANUALLY TRANSCRIBED RESULTS Pulmonary function test Spir ometry (Flow Volume Loop) w/ DLCO (diffusion study)Ordered By: Shahriar Rosales on 03-06-2025 [facility] [facility] Work Phone: RESPIRATORY ALLERGY PANELon 03-06-2025 ALTERNARIA ALTERNATA <^0.10 Normal <0.10 [facility] Comment on above: Order Comment: Class 0: Normal Class 0/1: Low level of Allergy, indicative of ongoing sensitization. Class 1: Low level of Allergy, indicative of ongoing sensitization. Class 2: Moderate level of Allergy, indicative of stronger ongoing sensitization. Class 3: High level of Allergy, indicative of high level sensitization. Class 4: Very High level of Allergy, indicative of very high level sensitization. Class 5: Very High level of Allergy, indicative of very high level sensitization. Class 6: Very High level of Allergy, indicative of very high level sensitization. Performed By: #### R AP #### [facility] ([facility]) [address] [place] [address] VIR ASPERGILLUS FUMIGATUS <^0.10 Normal <0.10 [facility] Comment on above: Order Comment: Class 0: Normal Class 0/1: Low level of Allergy, indicative of ongoing sensitization. Class 1: Low level of Allergy, indicative of ongoing sensitization. Class 2: Moderate level of Allergy, indicative of stronger ongoing sensitization. Class 3: High level of Allergy, indicative of high level sensitization. Class 4: Very High level of Allergy, indicative of very high level sensitization. Class 5: Very High level of Allergy, indicative of very high level sensitization. Class 6: Very High level of Allergy, indicative of very high level sensitization. Performed By: #### R AP #### [facility] ([facility]) [address] [place] [address] VIR BERMUDA GRASS <^0.10 Normal <0.10 [facility] Comment on above: Order Comment: Class 0: Normal Class 0/1: Low level of Allergy, indicative of ongoing sensitization. Class 1: Low level of Allergy, indicative of ongoing sensitization. Class 2: Moderate level of Allergy, indicative of stronger ongoing sensitization. Class 3: High level of Allergy, indicative of high level sensitization. Class 4: Very High level of Allergy, indicative of very high level sensitization. Class 5: Very High level of Allergy, indicative of very high level sensitization. Class 6: Very High level of Allergy, indicative of very high level sensitization. Performed By: #### R AP #### [facility] ([facility]) [address] [place] [address] VIR BOX ELDER <^0.10 Normal <0.10 [facility] Comment on above: Order Comment: Class 0: Normal Class 0/1: Low level of Allergy, indicative of ongoing sensitization. Class 1: Low level of Allergy, indicative of ongoing sensitization. Class 2: Moderate level of Allergy, indicative of stronger ongoing sensitization. Class 3: High level of Allergy, indicative of high level sensitization. Class 4: Very High level of Allergy, indicative of very high level sensitization. Class 5: Very High level of Allergy, indicative of very high level sensitization. Class 6: Very High level of Allergy, indicative of very high level sensitization. Performed By: #### R AP #### [facility] ([facility]) [address] [place] [address] VIR CAT DANDER <^0.10 Normal <0.10 [facility] Comment on above: Order Comment: Class 0: Normal Class 0/1: Low level of Allergy, indicative of ongoing sensitization. Class 1: Low level of Allergy, indicative of ongoing sensitization. Class 2: Moderate level of Allergy, indicative of stronger ongoing sensitization. Class 3: High level of Allergy, indicative of high level sensitization. Class 4: Very High level of Allergy, indicative of very high level sensitization. Class 5: Very High level of Allergy, indicative of very high level sensitization. Class 6: Very High level of Allergy, indicative of very high level sensitization. Performed By: #### R AP #### [facility] ([facility]) [address] [place] [address] VIR CLADOSPORIUM HERB <^0.10 Normal <0.10 [facility] Comment on above: Order Comment: Class 0: Normal Class 0/1: Low level of Allergy, indicative of ongoing sensitization. Class 1: Low level of Allergy, indicative of ongoing sensitization. Class 2: Moderate level of Allergy, indicative of stronger ongoing sensitization. Class 3: High level of Allergy, indicative of high level sensitization. Class 4: Very High level of Allergy, indicative of very high level sensitization. Class 5: Very High level of Allergy, indicative of very high level sensitization. Class 6: Very High level of Allergy, indicative of very high level sensitization. Performed By: #### R AP #### [facility] ([facility]) [address] [place] [address] VIR COCKLEBUR <^0.10 Normal <0.10 [facility] Comment on above: Order Comment: Class 0: Normal Class 0/1: Low level of Allergy, indicative of ongoing sensitization. Class 1: Low level of Allergy, indicative of ongoing sensitization. Class 2: Moderate level of Allergy, indicative of stronger ongoing sensitization. Class 3: High level of Allergy, indicative of high level sensitization. Class 4: Very High level of Allergy, indicative of very high level sensitization. Class 5: Very High level of Allergy, indicative of very high level sensitization. Class 6: Very High level of Allergy, indicative of very high level sensitization. Performed By: #### R AP #### [facility] ([facility]) [address] [place] [address] VIR COCKROACH <^0.10 Normal <0.10 [facility] Comment on above: Order Comment: Class 0: Normal Class 0/1: Low level of Allergy, indicative of ongoing sensitization. Class 1: Low level of Allergy, indicative of ongoing sensitization. Class 2: Moderate level of Allergy, indicative of stronger ongoing sensitization. Class 3: High level of Allergy, indicative of high level sensitization. Class 4: Very High level of Allergy, indicative of very high level sensitization. Class 5: Very High level of Allergy, indicative of very high level sensitization. Class 6: Very High level of Allergy, indicative of very high level sensitization. Performed By: #### R AP #### [facility] ([facility]) [address] [place] [address] VIR COMMON PIGWEED <^0.10 Normal <0.10 [facility] Comment on above: Order Comment: Class 0: Normal Class 0/1: Low level of Allergy, indicative of ongoing sensitization. Class 1: Low level of Allergy, indicative of ongoing sensitization. Class 2: Moderate level of Allergy, indicative of stronger ongoing sensitization. Class 3: High level of Allergy, indicative of high level sensitization. Class 4: Very High level of Allergy, indicative of very high level sensitization. Class 5: Very High level of Allergy, indicative of very high level sensitization. Class 6: Very High level of Allergy, indicative of very high level sensitization. Performed By: #### R AP #### [facility] ([facility]) [address] [place] [address] VIR COMMON RAGWEED <^0.10 Normal <0.10 [facility] Comment on above: Order Comment: Class 0: Normal Class 0/1: Low level of Allergy, indicative of ongoing sensitization. Class 1: Low level of Allergy, indicative of ongoing sensitization. Class 2: Moderate level of Allergy, indicative of stronger ongoing sensitization. Class 3: High level of Allergy, indicative of high level sensitization. Class 4: Very High level of Allergy, indicative of very high level sensitization. Class 5: Very High level of Allergy, indicative of very high level sensitization. Class 6: Very High level of Allergy, indicative of very high level sensitization. Performed By: #### R AP #### [facility] ([facility]) [address] [place] [address] VIR COMMON SILVER BIRCH <^0.10 Normal <0.10 [facility] Comment on above: Order Comment: Class 0: Normal Class 0/1: Low level of Allergy, indicative of ongoing sensitization. Class 1: Low level of Allergy, indicative of ongoing sensitization. Class 2: Moderate level of Allergy, indicative of stronger ongoing sensitization. Class 3: High level of Allergy, indicative of high level sensitization. Class 4: Very High level of Allergy, indicative of very high level sensitization. Class 5: Very High level of Allergy, indicative of very high level sensitization. Class 6: Very High level of Allergy, indicative of very high level sensitization. Performed By: #### R AP #### [facility] ([facility]) [address] [place] [address] VIR COTTONWOOD <^0.10 Normal <0.10 [facility] Comment on above: Order Comment: Class 0: Normal Class 0/1: Low level of Allergy, indicative of ongoing sensitization. Class 1: Low level of Allergy, indicative of ongoing sensitization. Class 2: Moderate level of Allergy, indicative of stronger ongoing sensitization. Class 3: High level of Allergy, indicative of high level sensitization. Class 4: Very High level of Allergy, indicative of very high level sensitization. Class 5: Very High level of Allergy, indicative of very high level sensitization. Class 6: Very High level of Allergy, indicative of very high level sensitization. Performed By: #### R AP #### [facility] ([facility]) [address] [place] [address] VIR DERMATOPH FARINAE <^0.10 Normal <0.10 [facility] Comment on above: Order Comment: Class 0: Normal Class 0/1: Low level of Allergy, indicative of ongoing sensitization. Class 1: Low level of Allergy, indicative of ongoing sensitization. Class 2: Moderate level of Allergy, indicative of stronger ongoing sensitization. Class 3: High level of Allergy, indicative of high level sensitization. Class 4: Very High level of Allergy, indicative of very high level sensitization. Class 5: Very High level of Allergy, indicative of very high level sensitization. Class 6: Very High level of Allergy, indicative of very high level sensitization. Performed By: #### R AP #### [facility] ([facility]) [address] [place] [address] VIR DERMATOPH PTERONYSS <^0.10 Normal <0.10 [facility] Comment on above: Order Comment: Class 0: Normal Class 0/1: Low level of Allergy, indicative of ongoing sensitization. Class 1: Low level of Allergy, indicative of ongoing sensitization. Class 2: Moderate level of Allergy, indicative of stronger ongoing sensitization. Class 3: High level of Allergy, indicative of high level sensitization. Class 4: Very High level of Allergy, indicative of very high level sensitization. Class 5: Very High level of Allergy, indicative of very high level sensitization. Class 6: Very High level of Allergy, indicative of very high level sensitization. Performed By: #### R AP #### [facility] ([facility]) [address] [place] [address] VIR DOG DANDER <^0.10 Normal <0.10 [facility] Comment on above: Order Comment: Class 0: Normal Class 0/1: Low level of Allergy, indicative of ongoing sensitization. Class 1: Low level of Allergy, indicative of ongoing sensitization. Class 2: Moderate level of Allergy, indicative of stronger ongoing sensitization. Class 3: High level of Allergy, indicative of high level sensitization. Class 4: Very High level of Allergy, indicative of very high level sensitization. Class 5: Very High level of Allergy, indicative of very high level sensitization. Class 6: Very High level of Allergy, indicative of very high level sensitization. Performed By: #### R AP #### [facility] ([facility]) [address] [place] [address] VIR ELM <^0.10 Normal <0.10 [facility] Comment on above: Order Comment: Class 0: Normal Class 0/1: Low level of Allergy, indicative of ongoing sensitization. Class 1: Low level of Allergy, indicative of ongoing sensitization. Class 2: Moderate level of Allergy, indicative of stronger ongoing sensitization. Class 3: High level of Allergy, indicative of high level sensitization. Class 4: Very High level of Allergy, indicative of very high level sensitization. Class 5: Very High level of Allergy, indicative of very high level sensitization. Class 6: Very High level of Allergy, indicative of very high level sensitization. Performed By: #### R AP #### [facility] ([facility]) [address] [place] [address] VIR GOOSEFOOT HARVEY QTR <^0.10 Normal <0.10 [facility] Comment on above: Order Comment: Class 0: Normal Class 0/1: Low level of Allergy, indicative of ongoing sensitization. Class 1: Low level of Allergy, indicative of ongoing sensitization. Class 2: Moderate level of Allergy, indicative of stronger ongoing sensitization. Class 3: High level of Allergy, indicative of high level sensitization. Class 4: Very High level of Allergy, indicative of very high level sensitization. Class 5: Very High level of Allergy, indicative of very high level sensitization. Class 6: Very High level of Allergy, indicative of very high level sensitization. Performed By: #### R AP #### [facility] ([facility]) [address] [place] [address] VIR IGE 14 IU/mL Normal <=165 [facility] Comment on above: Order Comment: Class 0: Normal Class 0/1: Low level of Allergy, indicative of ongoing sensitization. Class 1: Low level of Allergy, indicative of ongoing sensitization. Class 2: Moderate level of Allergy, indicative of stronger ongoing sensitization. Class 3: High level of Allergy, indicative of high level sensitization. Class 4: Very High level of Allergy, indicative of very high level sensitization. Class 5: Very High level of Allergy, indicative of very high level sensitization. Class 6: Very High level of Allergy, indicative of very high level sensitization. Performed By: #### R AP #### [facility] ([facility]) [address] [place] [address] VIR JENN GRASS <^0.10 Normal <0.10 [facility] Comment on above: Order Comment: Class 0: Normal Class 0/1: Low level of Allergy, indicative of ongoing sensitization. Class 1: Low level of Allergy, indicative of ongoing sensitization. Class 2: Moderate level of Allergy, indicative of stronger ongoing sensitization. Class 3: High level of Allergy, indicative of high level sensitization. Class 4: Very High level of Allergy, indicative of very high level sensitization. Class 5: Very High level of Allergy, indicative of very high level sensitization. Class 6: Very High level of Allergy, indicative of very high level sensitization. Performed By: #### R AP #### [facility] ([facility]) [address] [place] [address] VIR MAPLE LEAF [place]ORE <^0.10 Normal <0.10 [facility] Comment on above: Order Comment: Class 0: Normal Class 0/1: Low level of Allergy, indicative of ongoing sensitization. Class 1: Low level of Allergy, indicative of ongoing sensitization. Class 2: Moderate level of Allergy, indicative of stronger ongoing sensitization. Class 3: High level of Allergy, indicative of high level sensitization. Class 4: Very High level of Allergy, indicative of very high level sensitization. Class 5: Very High level of Allergy, indicative of very high level sensitization. Class 6: Very High level of Allergy, indicative of very high level sensitization. Performed By: #### R AP #### [facility] ([facility]) [address] [place] [address] VIR MEADOW GRASS [place] TANA <^0.10 Normal <0.10 [facility] Comment on above: Order Comment: Class 0: Normal Class 0/1: Low level of Allergy, indicative of ongoing sensitization. Class 1: Low level of Allergy, indicative of ongoing sensitization. Class 2: Moderate level of Allergy, indicative of stronger ongoing sensitization. Class 3: High level of Allergy, indicative of high level sensitization. Class 4: Very High level of Allergy, indicative of very high level sensitization. Class 5: Very High level of Allergy, indicative of very high level sensitization. Class 6: Very High level of Allergy, indicative of very high level sensitization. Performed By: #### R AP #### [facility] ([facility]) [address] [place] [address] VIR M[place] JUNIPER <^0.10 Normal <0.10 [facility] Comment on above: Order Comment: Class 0: Normal Class 0/1: Low level of Allergy, indicative of ongoing sensitization. Class 1: Low level of Allergy, indicative of ongoing sensitization. Class 2: Moderate level of Allergy, indicative of stronger ongoing sensitization. Class 3: High level of Allergy, indicative of high level sensitization. Class 4: Very High level of Allergy, indicative of very high level sensitization. Class 5: Very High level of Allergy, indicative of very high level sensitization. Class 6: Very High level of Allergy, indicative of very high level sensitization. Performed By: #### R AP #### [facility] ([facility]) [address] [place] [address] VIR MOUSE URINE PROTEINS <^0.10 Normal <0.10 [facility] Comment on above: Order Comment: Class 0: Normal Class 0/1: Low level of Allergy, indicative of ongoing sensitization. Class 1: Low level of Allergy, indicative of ongoing sensitization. Class 2: Moderate level of Allergy, indicative of stronger ongoing sensitization. Class 3: High level of Allergy, indicative of high level sensitization. Class 4: Very High level of Allergy, indicative of very high level sensitization. Class 5: Very High level of Allergy, indicative of very high level sensitization. Class 6: Very High level of Allergy, indicative of very high level sensitization. Performed By: #### R AP #### [facility] ([facility]) [address] [place] [address] VIR MUGWORT <^0.10 Normal <0.10 [facility] Comment on above: Order Comment: Class 0: Normal Class 0/1: Low level of Allergy, indicative of ongoing sensitization. Class 1: Low level of Allergy, indicative of ongoing sensitization. Class 2: Moderate level of Allergy, indicative of stronger ongoing sensitization. Class 3: High level of Allergy, indicative of high level sensitization. Class 4: Very High level of Allergy, indicative of very high level sensitization. Class 5: Very High level of Allergy, indicative of very high level sensitization. Class 6: Very High level of Allergy, indicative of very high level sensitization. Performed By: #### R AP #### [facility] ([facility]) [address] [place] [address] VIR MULBERRY TREE <^0.10 Normal <0.10 [facility] Comment on above: Order Comment: Class 0: Normal Class 0/1: Low level of Allergy, indicative of ongoing sensitization. Class 1: Low level of Allergy, indicative of ongoing sensitization. Class 2: Moderate level of Allergy, indicative of stronger ongoing sensitization. Class 3: High level of Allergy, indicative of high level sensitization. Class 4: Very High level of Allergy, indicative of very high level sensitization. Class 5: Very High level of Allergy, indicative of very high level sensitization. Class 6: Very High level of Allergy, indicative of very high level sensitization. Performed By: #### R AP #### [facility] ([facility]) [address] [place] [address] VIR NETTLE <^0.10 Normal <0.10 [facility] Comment on above: Order Comment: Class 0: Normal Class 0/1: Low level of Allergy, indicative of ongoing sensitization. Class 1: Low level of Allergy, indicative of ongoing sensitization. Class 2: Moderate level of Allergy, indicative of stronger ongoing sensitization. Class 3: High level of Allergy, indicative of high level sensitization. Class 4: Very High level of Allergy, indicative of very high level sensitization. Class 5: Very High level of Allergy, indicative of very high level sensitization. Class 6: Very High level of Allergy, indicative of very high level sensitization. Performed By: #### R AP #### [facility] ([facility]) [address] [place] [address] VIR OAK <^0.10 Normal <0.10 [facility] Comment on above: Order Comment: Class 0: Normal Class 0/1: Low level of Allergy, indicative of ongoing sensitization. Class 1: Low level of Allergy, indicative of ongoing sensitization. Class 2: Moderate level of Allergy, indicative of stronger ongoing sensitization. Class 3: High level of Allergy, indicative of high level sensitization. Class 4: Very High level of Allergy, indicative of very high level sensitization. Class 5: Very High level of Allergy, indicative of very high level sensitization. Class 6: Very High level of Allergy, indicative of very high level sensitization. Performed By: #### R AP #### [facility] ([facility]) [address] [place] [address] VIR PECAN HICKORY TREE <^0.10 Normal <0.10 [facility] Comment on above: Order Comment: Class 0: Normal Class 0/1: Low level of Allergy, indicative of ongoing sensitization. Class 1: Low level of Allergy, indicative of ongoing sensitization. Class 2: Moderate level of Allergy, indicative of stronger ongoing sensitization. Class 3: High level of Allergy, indicative of high level sensitization. Class 4: Very High level of Allergy, indicative of very high level sensitization. Class 5: Very High level of Allergy, indicative of very high level sensitization. Class 6: Very High level of Allergy, indicative of very high level sensitization. Performed By: #### R AP #### [facility] ([facility]) [address] [place] [address] VIR PENICILLIUM CHRYSOGN <^0.10 Normal <0.10 [facility] Comment on above: Order Comment: Class 0: Normal Class 0/1: Low level of Allergy, indicative of ongoing sensitization. Class 1: Low level of Allergy, indicative of ongoing sensitization. Class 2: Moderate level of Allergy, indicative of stronger ongoing sensitization. Class 3: High level of Allergy, indicative of high level sensitization. Class 4: Very High level of Allergy, indicative of very high level sensitization. Class 5: Very High level of Allergy, indicative of very high level sensitization. Class 6: Very High level of Allergy, indicative of very high level sensitization. Performed By: #### R AP #### [facility] ([facility]) [address] [place] [address] VIR ROUGH MARSHELDER <^0.10 Normal <0.10 [facility] Comment on above: Order Comment: Class 0: Normal Class 0/1: Low level of Allergy, indicative of ongoing sensitization. Class 1: Low level of Allergy, indicative of ongoing sensitization. Class 2: Moderate level of Allergy, indicative of stronger ongoing sensitization. Class 3: High level of Allergy, indicative of high level sensitization. Class 4: Very High level of Allergy, indicative of very high level sensitization. Class 5: Very High level of Allergy, indicative of very high level sensitization. Class 6: Very High level of Allergy, indicative of very high level sensitization. Performed By: #### R AP #### [facility] ([facility]) [address] [place] [address] VIR SALTWORT SHELLEY THISTLE <^0.10 Normal <0.10 [facility] Comment on above: Order Comment: Class 0: Normal Class 0/1: Low level of Allergy, indicative of ongoing sensitization. Class 1: Low level of Allergy, indicative of ongoing sensitization. Class 2: Moderate level of Allergy, indicative of stronger ongoing sensitization. Class 3: High level of Allergy, indicative of high level sensitization. Class 4: Very High level of Allergy, indicative of very high level sensitization. Class 5: Very High level of Allergy, indicative of very high level sensitization. Class 6: Very High level of Allergy, indicative of very high level sensitization. Performed By: #### R AP #### [facility] ([facility]) [address] [place] [address] VIR SHEEP SORREL <^0.10 Normal <0.10 [facility] Comment on above: Order Comment: Class 0: Normal Class 0/1: Low level of Allergy, indicative of ongoing sensitization. Class 1: Low level of Allergy, indicative of ongoing sensitization. Class 2: Moderate level of Allergy, indicative of stronger ongoing sensitization. Class 3: High level of Allergy, indicative of high level sensitization. Class 4: Very High level of Allergy, indicative of very high level sensitization. Class 5: Very High level of Allergy, indicative of very high level sensitization. Class 6: Very High level of Allergy, indicative of very high level sensitization. Performed By: #### R AP #### [facility] ([facility]) [address] [place] [address] VIR JESSE <^0.10 Normal <0.10 [facility] Comment on above: Order Comment: Class 0: Normal Class 0/1: Low level of Allergy, indicative of ongoing sensitization. Class 1: Low level of Allergy, indicative of ongoing sensitization. Class 2: Moderate level of Allergy, indicative of stronger ongoing sensitization. Class 3: High level of Allergy, indicative of high level sensitization. Class 4: Very High level of Allergy, indicative of very high level sensitization. Class 5: Very High level of Allergy, indicative of very high level sensitization. Class 6: Very High level of Allergy, indicative of very high level sensitization. Performed By: #### R AP #### [facility] ([facility]) [address] [place] [address] VIR WALNUT TREE POLLEN <^0.10 Normal <0.10 [facility] Comment on above: Order Comment: Class 0: Normal Class 0/1: Low level of Allergy, indicative of ongoing sensitization. Class 1: Low level of Allergy, indicative of ongoing sensitization. Class 2: Moderate level of Allergy, indicative of stronger ongoing sensitization. Class 3: High level of Allergy, indicative of high level sensitization. Class 4: Very High level of Allergy, indicative of very high level sensitization. Class 5: Very High level of Allergy, indicative of very high level sensitization. Class 6: Very High level of Allergy, indicative of very high level sensitization. Performed By: #### R AP #### [facility] ([facility]) [address] [place] [address] VIR WHITE ADIS <^0.10 Normal <0.10 [facility] Comment on above: Order Comment: Class 0: Normal Class 0/1: Low level of Allergy, indicative of ongoing sensitization. Class 1: Low level of Allergy, indicative of ongoing sensitization. Class 2: Moderate level of Allergy, indicative of stronger ongoing sensitization. Class 3: High level of Allergy, indicative of high level sensitization. Class 4: Very High level of Allergy, indicative of very high level sensitization. Class 5: Very High level of Allergy, indicative of very high level sensitization. Class 6: Very High level of Allergy, indicative of very high level sensitization. Performed By: #### R AP #### [facility] ([facility]) [address] [place] [address] CHEST W CONTon 03-01-2025 CT CHEST W CONT CT CHEST W CONT CT CHEST WITH CONTRAST HISTORY: Blood in sputum COMPARISON: 06/28/2024 TECHNIQUE: Routine CT chest with contrast. FINDINGS: No airspace disease. Sequela of old granulomatous disease. There is abnormal bronchial wall thickening in the right upper lobe bronchus with enlarged adjacent right hilar lymph nodes measuring up to 1.8 x 1.1 cm in size (axial image 54). Pancreatic head parenchymal calcifications related to sequela of chronic pancreatitis. Unchanged mildly enlarged left para-aortic lymph node. No pleural or pericardial effusions. The thoracic aorta is unremarkable. The central pulmonary arteries are unremarkable. Coronary artery calcifications. Visualized structures in the lower neck are unremarkable. Visualized chest wall structures are unremarkable. No acute osseous abnormalities or aggressive osseous lesions. IMPRESSION: * Abnormal bronchial wall thickening in the right upper lobe bronchus with adjacent enlarged right hilar lymph nodes. Findings could be infectious or malignant in etiology. Recommend correlating with bronchoscopy. All CT scans at this facility use dose modulation, iterative reconstruction, and/or weight based dosing when appropriate to reduce radiation dose to as low as reasonably achievable. Finalized by Jose Alfredo Castro MD on 03/01/2025 1:01 AM Normal [facility] COMPREHENSIVE METABOLIC PANE Conor 02-24-2025 Albumin [Mass/Vol] 4.7 g/dL Normal 3.2-5.3 [facility] Comment on above: Performed By: #### C BCA, CMP, 60969-8, 2777-1, 3084-1, 2731-8, 65216-6 #### [facility] ([id number]) [address] [place] [address] ALP [Catalytic activity/Vol] 85 U/L Normal 39-130 [facility] Comment on above: Performed By: #### C BCA, CMP, 77242-9, 2777-1, 3084-1, 2731-8, 96990-4 #### [facility] ([id number]) [address], [address] [place] [address] ALT [Catalytic activity/Vol] 28 U/L Normal <=31 [facility] Comment on above: Performed By: #### C BCA, CMP, 63129-5, 2777-1, 3084-1, 2731-8, 39137-1 #### [facility] ([id number]) [address], [address] [place] [address] Anion gap [Moles/Vol] 9 mmol/L Normal 5-15 [facility] Comment on above: Performed By: #### C BCA, CMP, 04038-6, 2777-1, 3084-1, 2731-8, 58873-5 #### [facility] ([id number]) [address], [address] [place] [address] AST [Catalytic activity/Vol] 31 U/L Normal <=41 [facility] Comment on above: Performed By: #### C BCA, CMP, 20009-9, 2777-1, 3084-1, 2731-8, 92342-6 #### [facility] ([id number]) [address] [place] [address] Bilirubin [Mass/Vol] 0.7 mg/dL Normal 0.3-1.2 [facility] Comment on above: Performed By: #### C BCA, CMP, 82131-7, 2777-1, 3084-1, 2731-8, 79761-2 #### [facility] ([id number]) [address], [address] [place] [address] Calcium [Mass/Vol] 9.3 mg/dL Normal 8.5-10.5 [facility] Comment on above: Performed By: #### C BCA, CMP, 42895-2, 2777-1, 3084-1, 2731-8, 14429-7 #### [facility] ([id number]) [address] [place] [address] Chloride [Moles/Vol] 98 mmol/L Normal 98-109 [facility] Comment on above: Performed By: #### C BCA, CMP, 39780-3, 2777-1, 3084-1, 2731-8, 70645-0 #### [facility] ([id number]) [address], [address] [place] [address] CO2 [Moles/Vol] 25 mmol/L Normal 22-32 [facility] Comment on above: Performed By: #### C BCA, CMP, 06321-9, 2777-1, 3084-1, 2731-8, 68053-0 #### [facility] ([id number]) [address] [place] [address] Creatinine [Mass/Vol] 0.97 mg/dL Normal 0.40-1.00 [facility] Comment on above: Result Comment: METH OD TRACEABLE TO IDMS STANDARD Performed By: #### C BCA, CMP, 77011-9, 2777-1, 3084-1, 2731-8, 66121-5 #### [facility] ([id number]) [address] [place] [address] GFR/1.73 sq M.predicted among non-blacks MDRD (S/P/Bld) [Vol rate/Area] 69 mL/min/{1.73_m2} Normal >=60 [facility] Comment on above: Result Comment: eGFR not reported due to non-numeric value for Creatinine. Reported eGFR is based on the CKD-EPI 202 equation that does not use a race coefficient. Performed By: #### C BCA, CMP, 09261-3, 2777-1, 3084-1, 2731-8, 32000-8 #### [facility] ([id number]) [address] [place] [address] Glucose [Mass/Vol] 108 mg/dL High 65-99 [facility] Comment on above: Performed By: #### C BCA, CMP, 20589-4, 2777-1, 3084-1, 2731-8, 95823-5 #### [facility] ([id number]) [address], [address] [place] [address] Potassium [Moles/Vol] 4.0 mmol/L Normal 3.5-5.0 [facility] Comment on above: Performed By: #### C BCA, CMP, 83779-9, 2777-1, 3084-1, 2731-8, 67321-5 #### [facility] ([id number]) [address] [place] [address] Protein [Mass/Vol] 7.5 g/dL Normal 6.0-8.0 [facility] Comment on above: Performed By: #### C BCA, CMP, 36470-0, 2777-1, 3084-1, 2731-8, 30391-0 #### [facility] ([id number]) [address] [place] [address] Sodium [Moles/Vol] 132 mmol/L Low 134-146 [facility] Comment on above: Performed By: #### C BCA, CMP, 85066-1, 2777-1, 3084-1, 2731-8, 23819-5 #### [facility] ([id number]) [address] [place] [address] Urea nitrogen [Mass/Vol] 13 mg/dL Normal 5-23 [facility] Comment on above: Performed By: #### C BCA, CMP, 47624-7, 2777-1, 3084-1, 2731-8, 49031-8 #### [facility] ([id number]) [address] [place] [address] Cytologyon 08-05-2024 Cytology Normal [facility] Comment on above: Result Comment: [facility] [facility] [employer] [facility] [address] [place] [address] Gynecologic Cytology Consultation Patient Name:SEAN MALDONADO:1970 (Age: 54)Gender:FTaken:08/05/2024eported:08/19/2024Physician(s):Gee HoughN.PKalayni ([phone])Copy To: Rec. #:[id number]: #[id number] Final Cytologic Interpretation ThinPrep Pap Test (Cervical): Satisfactory for evaluation. NEGATIVE FOR INTRAEPITHELIAL LESION OR MALIGNANCY. [facility]/08/19/2024 [place] [address], License number: [id number]. Electronically Signed Out By MONA Del Rosario(ASCP) Date of Last Menstrual Period: (None Given) Other Clinical Conditions: Z01.419 Copy And Print Associate exam wo/abn findings Menopausal Postmenopausal Source of Specimen ThinPrep Pap Test (Cervical) Thin Prep Pap (EMERGENCY DOCTOR) Fee Code(s): G0145 The Pap test is a screening test with an inherent, but low, probability of error. The Pap test is primarily effective for the diagnosis and prevention of squamous cell carcinoma. Regular screening is critical for prevention. ThinPrep liquid-based slides, which meet the Colorist Dyer criteria for automated screening, have been screened by the [facility] (as of 04/23/07) along with an additional manual rescreening by a project management director and, if indicated, by a pathologist. CT LOW DOSE LUNG SCREENINGon 07-01-2024 CT LOW DOSE LUNG SCREENING CT LOW DOSE LUNG SCREENING CLINICAL INFORMATION: Screening visit: Personal history of tobacco use/personal history of nicotine dependence. Lung cancer screening. The patient is a prior smoker. The patient has a 38 pack year history of smoking. COMPARISON: 06/16/2023, 06/16/2022 TECHNIQUE: Low dose CT chest performed without contrast with coronal and sagittal and maximum intensity projection reconstructed images. Maximum intensity projection images generated to increase the sensitivity of pulmonary nodule detection. All CT scans at this facility use dose modulation, iterative reconstruction, and/or weight based dosing when appropriate to reduce radiation dose to as low as reasonably achievable. Automated exposure control was utilized. Computer aided detection for pulmonary nodules?was performed utilizing xkoto software.? FINDINGS: Diagnostic quality: Satisfactory Lung nodules: Ground glass opacity in the right lower lobe measures up to 0.5 cm (series 3 image 60). 0.6 cm calcified granuloma in the right middle lobe. Lungs and pleural spaces: Hyperinflation of the lungs, consistent with history of COPD. No focal consolidations. No pneumothorax. No pleural effusions. Mediastinum: No enlarged mediastinal or hilar lymphadenopathy. Thoracic aorta is nonaneurysmal. Mild atherosclerotic calcifications of the thoracic aorta. Heart size: Normal Coronary calcification: Mild Pericardial effusion: None Other findings: Calcifications in the region of the pancreatic head, which may be secondary to chronic pancreatitis. Incompletely evaluated on low-dose noncontrast technique. Degenerative changes of the thoracic spine. IMPRESSION: Lung Rads Category: 2- Benign appearance or behavior Recommendation: CT Low Dose Lung Screening 1 year Approved by Resident Garrison Lambert MD on 07/01/2024 11:32 AM IEran MD have personally reviewed the image(s) and agree with and/or edited the report Finalized by Eran Tello MD on 07/01/2024 1:00 PM 2 LDCT 1 Yr Normal [facility] MAMM SCREENING BILATERAL W C medical delivery technician 06-20-2024 MAMM SCREENING BILATERAL W CAD MAMM SCREENING BILATERAL W CAD SEAN MALDONADO 1970 [id number] EXAM: MAMM SCREENING BILATERAL W CAD, 06/19/2024 1:47 PM CLINICAL INDICATIONS: Screening, Screening mammogram for breast cancer COMPARISON: 06/16/2023 TECHNIQUE: Bilateral digital tomosynthesis MLO and CC views of the breasts were obtained, with creation of synthetic 2D views. Computer aided detection was utilized. FINDINGS: The breasts are heterogeneously dense, which may obscure small masses. There are no suspicious masses, calcifications, or areas of architectural distortion. IMPRESSION: No mammographic evidence of malignancy. BI-RADS: BI-RADS 1 - Negative RECOMMENDATION: Routine screening mammogram in 1 year. Due to the density and/or complexity of breast tissue on mammography, Molecular Breast Imaging is recommended as a supplement to annual screening mammography. MBI can be used to help detect mammographically occult cancers in dense breasts. RISK ASSESSMENT: TC Lifetime risk: 9.0%. The patient's reported personal and family medical history was used calculate their Tyrer-Cuzick lifetime risk of malignancy. Scores less than 20% are not considered high risk per ACR guidelines and patient should continue with the above recommendation. Finalized by Serafin Holliday MD on 06/20/2024 8:46 AM 1 c MAMM 1 YR Normal [facility] US RETROPERITONEAL COMPLETEo n 06-13-2024 US RETROPERITONEAL COMPLETE US RETROPERITONEAL COMPLETE HISTORY: A 54 old female with the history of the stage III chronic renal disease, hypertensive nephropathy and vitamin D deficiency. TECHNIQUE: Multiple real-time images of both kidneys and the urinary bladder are obtained. Color Doppler study is performed. COMPARISON: No relevant prior studies are available for comparison. FINDINGS: Both kidneys are normal in position and configuration. Right kidney measures 10.2 x 3.9 x 5.7 Cms. Right renal cortical thickness measures 0.72 Cms . Left kidney measures 12.0 x 4.5 x 4.8 Cms. Left renal cortical thickness measures 0.59 Cms. There is no evidence of hydronephrosis in the either kidney. Renal cortical echoes are within normal limits. No evidence of cystic or solid renal mass. Prevoid urinary bladder volume is 498 mL. Bilateral ureteric jets are visualized. No intraluminal abnormality seen. IMPRESSION: * Normal renal and urinary bladder ultrasound. Finalized by Hammad Kidd MD on 06/13/2024 8:57 AM Normal [facility] CBC AND AUTO DIFFon 06-12-20 24 ABSOLUTE BASOPHIL 0.1 X10E9/L Normal 0.0-0.2 [facility] Comment on above: Performed By: #### C MAHAD, CMP, 60904-7, 2777-1, 3084-1, 2731-8, 13344-4 #### [facility] ([id number]) [address] [place] [address] ABSOLUTE NEUTROPHIL 5.5 X10E9/L Normal 1.5-6.6 [facility] Comment on above: Performed By: #### C MAHAD CMP, 23565-7, 2777-1, 3084-1, 2731-8, 78112-3 #### [facility] ([id number]) [address] [place] [address] Basophils/100 WBC (Bld) 1.6 % Normal [facility] Comment on above: Performed By: #### C BCA, CMP, 27596-1, 2777-1, 3084-1, 2731-8, 90010-2 #### [facility] LAB ([id number]) [address], [address] [place] [address] Eosinophils (Bld) [#/Vol] 0.0 10*3/uL Normal 0.0-0.4 [facility] Comment on above: Performed By: #### C BCA, CMP, 27837-1, 7-1, 3084-1, 2731-8, 88568-8 #### [facility] ([id number]) [address], [address] [place] [address] Eosinophils/100 WBC (Bld) 0.3 % Normal [facility] Comment on above: Performed By: #### C BCA, CMP, 15228-7, 2777-1, 3084-1, 2731-8, 40420-6 #### [facility] ([id number]) [address], [address] [place] [address] Erythrocyte distribution width (RBC) [Ratio] 13.3 % Normal 11.5-15.0 [facility] Comment on above: Performed By: #### C BCA, CMP, 68267-0, 2777-1, 3084-1, 2731-8, 00923-0 #### [facility] ([id number]) [address], [address] [place] [address] Hematocrit (Bld) [Volume fraction] 44.1 % Normal 35-47 [facility] Comment on above: Performed By: #### C BCA, CMP, 38003-6, 2777-1, 3084-1, 2731-8, 76898-9 #### [facility] ([id number]) [address], [address] [place] [address] Hemoglobin (Bld) [Mass/Vol] 15.6 g/dL High 11.7-15.5 [facility] Comment on above: Performed By: #### C BCA, CMP, 84400-5, 2777-1, 3084-1, 2731-8, 39078-4 #### [facility] ([id number]) [address], [address] [place] [address] Lymphocytes (Bld) [#/Vol] 2.3 10*3/uL Normal 1.0-3.5 [facility] Comment on above: Performed By: #### C BCA, CMP, 19277-0, 7-1, 3084-1, 2731-8, 74422-4 #### [facility] ([id number]) [address], [address] [place] [address] Lymphocytes/100 WBC (Bld) 26.5 % Normal [facility] Comment on above: Performed By: #### C BCA, CMP, 91220-8, 7-1, 3084-1, 2731-8, 95657-0 #### [facility] ([id number]) [address], [address] [place] [address] MCH (RBC) [Entitic mass] 34.9 pg High 27-34 [facility] Comment on above: Performed By: #### C BCA, CMP, 60873-8, 2777-1, 3084-1, 2731-8, 49397-3 #### [facility] ([id number]) [address], [address] [place] [address] MCHC (RBC) [Mass/Vol] 35.3 g/dL Normal 32-36 [facility] Comment on above: Performed By: #### C BCA, CMP, 33299-1, 2777-1, 3084-1, 2731-8, 49351-7 #### [facility] ([id number]) [address], [address] [place] [address] MCV (RBC) [Entitic vol] 99 fL Normal 80-100 [facility] Comment on above: Performed By: #### C BCA, CMP, 49204-0, 2777-1, 3084-1, 2731-8, 78630-2 #### [facility] ([id number]) [address], [facility] [address] [place] [address] Monocytes (Bld) [#/Vol] 0.6 10*3/uL Normal 0-0.9 [facility] Comment on above: Performed By: #### C BCA, CMP, 58748-8, 2777-1, 3084-1, 2731-8, 70080-0 #### [facility] ([id number]) [address], [address] [place] [address] Monocytes/100 WBC (Bld) 6.7 % Normal [facility] Comment on above: Performed By: #### C BCA, CMP, 99772-3, 2777-1, 3084-1, 2731-8, 30071-0 #### [facility] ([id number]) [address], [address] [place] [address] Neutrophils/100 WBC (Bld) 64.9 % Normal [facility] Comment on above: Performed By: #### C BCA, CMP, 81755-0, 2777-1, 3084-1, 2731-8, 34125-3 #### [facility] ([id number]) [address], [address] [place] [address] Platelet mean volume (Bld) [Entitic vol] 8.7 fL Normal 7-12 [facility] Comment on above: Performed By: #### C BCA, CMP, 73567-4, 2777-1, 3084-1, 2731-8, 84775-6 #### [facility] ([id number]) [address], [address] [place] [address] Platelets (Bld) [#/Vol] 323 10*3/uL Normal 150-450 [facility] Comment on above: Performed By: #### C BCA, CMP, 43120-3, 2777-1, 3084-1, 2731-8, 08966-7 #### [facility] ([id number]) [address], [address] [place] [address] RBC COUNT 4.47 X10E12/L Normal 3.80-5.20 [facility] Comment on above: Performed By: #### C BCA, CMP, 46960-9, 2777-1, 3084-1, 2731-8, 00265-3 #### [facility] ([id number]) [address], [address] [place] [address] WBC (Bld) [#/Vol] 8.5 10*3/uL Normal 4.0-11.0 [facility] Comment on above: Performed By: #### C BCA, CMP, 82668-7, 2777-1, 3084-1, 2731-8, 87722-2 #### [facility] ([id number]) [address], [address] [place] [address] COMPREHENSIVE METABOLIC PANE Conor 06-12-2024 Albumin [Mass/Vol] 4.8 g/dL Normal 3.2-5.3 [facility] Comment on above: Performed By: #### C BCA, CMP, 08969-8, 2777-1, 3084-1, 2731-8, 65235-9 #### [facility] ([id number]) [address], [address] [place] [address] ALP [Catalytic activity/Vol] 73 U/L Normal 39-130 [facility] Comment on above: Performed By: #### C BCA, CMP, 33357-8, 2777-1, 3084-1, 2731-8, 34082-7 #### [facility] ([id number]) [address], [address] [place] [address] ALT [Catalytic activity/Vol] 18 U/L Normal 0-31 [facility] Comment on above: Performed By: #### C BCA, CMP, 32886-0, 2777-1, 3084-1, 2731-8, 28690-8 #### [facility] ([id number]) [address], [address] [place] [address] Anion gap [Moles/Vol] 8 mmol/L Normal 5-15 [facility] Comment on above: Performed By: #### C BCA, CMP, 45415-2, 2777-1, 3084-1, 2731-8, 99303-3 #### [facility] ([id number]) [address], [address] [place] [address] AST [Catalytic activity/Vol] 20 U/L Normal 0-41 [facility] Comment on above: Performed By: #### C BCA, CMP, 45339-5, 2777-1, 3084-1, 2731-8, 86421-2 #### [facility] ([id number]) [address], [address] [place] [address] Bilirubin [Mass/Vol] 0.4 mg/dL Normal 0.3-1.2 [facility] Comment on above: Performed By: #### C BCA, CMP, 88832-3, 2777-1, 3084-1, 2731-8, 61730-0 #### [facility] ([id number]) [address], [address] [place] [address] Calcium [Mass/Vol] 9.8 mg/dL Normal 8.5-10.5 [facility] Comment on above: Performed By: #### C BCA, CMP, 00609-2, 2777-1, 3084-1, 2731-8, 72995-0 #### [facility] ([id number]) [address] [address] [place] [address] Chloride [Moles/Vol] 97 mmol/L Low 98-109 [facility] Comment on above: Performed By: #### C BCA, CMP, 59632-6, 2777-1, 3084-1, 2731-8, 57500-3 #### [facility] ([id number]) [address] [address] [place] [address] CO2 [Moles/Vol] 29 mmol/L Normal 22-32 [facility] Comment on above: Performed By: #### C BCA, CMP, 98208-8, 2777-1, 3084-1, 2731-8, 63812-1 #### [facility] ([id number]) [address] [address] [place] [address] Creatinine [Mass/Vol] 0.82 mg/dL Normal 0.40-1.00 [facility] Comment on above: Result Comment: METH OD TRACEABLE TO IDMS STANDARD Performed By: #### C BCA, CMP, 99263-3, 2777-1, 3084-1, 2731-8, 33959-7 #### [facility] ([id number]) [address] [address] GFR/1.73 sq M.predicted among non-blacks MDRD (S/P/Bld) [Vol rate/Area] 85 mL/min/{1.73_m2} Normal >59 [facility] Comment on above: Result Comment: Reported eGFR is based on the CKD-EPI 2020 equation that does not use a race coefficient. Performed By: #### C BCA, CMP, 97140-9, 2777-1, 3084-1, 2731-8, 46072-7 #### [facility] ([id number]) [address], [address] [place] [address] Glucose [Mass/Vol] 97 mg/dL Normal 65-99 [facility] Comment on above: Performed By: #### C BCA, CMP, 13805-9, 2777-1, 3084-1, 2731-8, 50906-6 #### [facility] ([id number]) [address], [address] [place] [address] Potassium [Moles/Vol] 4.0 mmol/L Normal 3.5-5.0 [facility] Comment on above: Performed By: #### C BCA, CMP, 01204-7, 2777-1, 3084-1, 2731-8, 46598-8 #### [facility] ([id number]) [address], [address] [place] [address] Protein [Mass/Vol] 7.4 g/dL Normal 6.0-8.0 [facility] Comment on above: Performed By: #### C BCA, CMP, 17326-5, 2777-1, 3084-1, 2731-8, 99820-9 #### [facility] ([id number]) [address], [address] [place] [address] Sodium [Moles/Vol] 134 mmol/L Normal 134-146 [facility] Comment on above: Performed By: #### C BCA, CMP, 34217-7, 2777-1, 3084-1, 2731-8, 68301-4 #### [facility] ([id number]) [address], [address] [place] [address] Urea nitrogen [Mass/Vol] 12 mg/dL Normal 5-23 [facility] Comment on above: Performed By: #### C BCA, CMP, 80537-8, 2777-1, 3084-1, 2731-8, 34808-7 #### [facility] ([id number]) [address], [address] [place] [address] MAGNESIUMon 11-06-2024 Magnesium [Mass/Vol] 2.0 mg/dL Normal 1.8-2.6 [facility] Comment on above: Performed By: #### C MAHAD, CMP, 73817-8, 2777-1, 3084-1, 2731-8, 36969-7 #### [facility] ([id number]) [address] [address] [place] [address] PHOSPHORUSon 06-12-2024 Phosphate [Mass/Vol] 4.1 mg/dL Normal 2.4-4.9 [facility] Comment on above: Performed By: #### C MAHAD, CMP, 79306-6, 2777-1, 3084-1, 2731-8, 43479-6 #### [facility] ([id number]) [address] [facility] [address] [place] [address] PROTEIN CREAT RATIOon 2023 RANDOM URINE PROTEIN <40 Normal <120 [facility] Comment on above: Performed By: #### U PCR #### [facility] ([id number]) [address] [address] [place] [address] U/PRO/COIN ROLLING MACHINE OPERATOR RATIO CALC NOT CALCULATED Normal <0.2 [facility] Comment on above: Result Comment: Result for Protein/Creatinine Ratio cannot be reliably calculated because urine total protein and or urine creatinine is below the detection limit of the assay. Performed By: #### U PCR #### [facility] ([id number]) [address] [address] [place] [address] URINE CREATININE,RDM 12.25 mg/dL Normal [facility] Comment on above: Performed By: #### U PCR #### [facility] ([id number]) [address] [address] [place] [address] Parathyrin.intact [Mass/Vol] on 06-12-2024 PTH INTACT 25 pg/mL Normal 12-88 [facility] Comment on above: Performed By: #### C BCA, CMP, 39392-3, 2777-1, 3084-1, 2731-8, 20300-1 #### [facility] ([id number]) [address] [place] [address] URIC ACIDon 06-12-2024 Urate [Mass/Vol] 3.8 mg/dL Normal 2.6-7.2 [facility] Comment on above: Performed By: #### C BCA, CMP, 90770-1, 2777-1, 3084-1, 2731-8, 58162-1 #### [facility] ([id number]) [address] [place] [address] URINALYSISon 06-12-2024 Bilirubin Ql (U) Negative Normal NEG [facility] Comment on above: Performed By: #### U A #### [facility] ([id number]) [address] [place] [address] BLOOD/HGB Negative Normal NEG [facility] Comment on above: Performed By: #### U A #### [facility] ([id number]) [address], [address] [place] [address] Color (U) YELLOW Normal YELLOW [facility] Comment on above: Performed By: #### U A #### [facility] ([id number]) [address], [address] [place] [address] Glucose Ql (U) Negative Normal NEG [facility] Comment on above: Performed By: #### U A #### [facility] ([id number]) [address] [place] [address] Ketones Ql (U) Negative Normal NEG [facility] Comment on above: Performed By: #### U A #### [facility] ([id number]) [address], [address] [place] [address] Leukocyte esterase Test strip Ql (U) Negative Normal NEG [facility] Comment on above: Performed By: #### U A #### [facility] ([id number]) [address], [address] [place] [address] Nitrite Ql (U) Negative Normal NEG [facility] Comment on above: Performed By: #### U A #### [facility] ([id number]) [address], [address] [place] [address] pH (U) 6.5 [pH] Normal 5.0-8.5 [facility] Comment on above: Performed By: #### U A #### [facility] ([id number]) [facility] [place] [address] Protein Ql (U) Negative Normal NEG [facility] Comment on above: Performed By: #### U A #### [facility] ([id number]) [address] [place] [address] Specific gravity (U) [Rel density] 1.004 Normal 1.003-1.035 [facility] Comment on above: Performed By: #### U A #### [facility] ([id number]) [address] [place] [address] TURBIDITY CLEAR Normal CLEAR [facility] Comment on above: Performed By: #### U A #### [facility] ([id number]) [address], [address] [place] [address] Urobilinogen (U) [Mass/Vol] mg/dL Normal <1.1 [facility] Comment on above: Performed By: #### U A #### [facility] ([id number]) [address] [address] [place] [address] Vitamin D+Metabolites [Mass/ Vol]on 06-12-2024 VITAMIN D 25 HYD TOT 46.5 ng/mL Normal 30-100 [facility] Comment on above: Result Comment: Vitamin D status 25 [place] Vitamin D Deficiency <20 ng/mL Insufficiency 20-29 ng/mL Sufficiency 30-100 ng/mL Toxicity >100 ng/mL NOTE: A pediatric reference range has not been established by the historic interpreter of this kit. The [employer] recommends a Vitamin D level of = or >20ng/mL in infants and children. Performed By: #### C BCA, [facility], 29151-0, 2777-1, 3084-1, 2731-8, 50029-4 #### [facility] ([id number]) [address] [place] [address], [address] [place] [address] AMYLASEon 06-09-2017 Amylase 86 U/L Normal 31-110 [facility] Comment on above: Performed By: #### C BC ####[facility] [address] [place], [place] [address]Gerken Megan CBC AUTO DIFFon 06-09-2017 Basophils Auto #/vol (Bld) 0.0 103/ul Normal 0.0-0.1 [facility] Comment on above: Performed By: #### C BC ####[facility] [address] [place], [place] [address]ken Megan Basophils/100 WBC Auto (Bld) 0.2 % Normal 0.2-2.0 [facility] Comment on above: Performed By: #### C BC ####[facility] [address] [place] [address]Cisain Megan Eosinophils 0.0 103/ul Normal 0.0-0.7 [facility] Comment on above: Performed By: #### C BC ####[facility] [address] [place] [id number] Megan Eosinophils/100 leukocytes 0.0 % Critically low 0.9-7.0 [facility] Comment on above: Performed By: #### C BC ####[facility] [address] Megan Erythrocyte distribution width Auto Ratio (RBC) 13.1 % Normal 11.0-15.0 [facility] Comment on above: Performed By: #### C BC ####[facility] [address] [place] [address] Megan Erythrocytes (RBC) 5.13 106/ul Normal 4.20-5.40 [facility] Comment on above: Performed By: #### C BC ####[facility] [address] [place] [address] Megan Hematocrit (HCT) 48.5 % Critically high 36.0-48.0 [facility] Comment on above: Performed By: #### C BC ####[facility] [address] [place] [address] Megan Hemoglobin mass conc (Bld) 17.4 g/dL Critically high 12.0-16.0 [facility] Comment on above: Performed By: #### C BC ####[facility] [address] [place] [address] Megan IG # 0.07 10e3/ul Critically high 0.00-0.03 [facility] Comment on above: Performed By: #### C BC ####[facility] [address] [place] [address] Megan IG % 0.5 % Normal 0.0-0.5 [facility] Comment on above: Performed By: #### C BC ####[facility] [address] [place] [address] Megan Lymphocytes 1.9 103/ul Normal 1.2-3.8 [facility] Comment on above: Performed By: #### C BC ####[facility] [address] [place] [address] Megan Lymphocytes/100 leukocytes 14.0 % Critically low 20.5-60.0 [facility] Comment on above: Performed By: #### C BC ####[facility] [address] [place] [address] Megan MANUAL DIFF REQ NO Normal [facility] Comment on above: Performed By: #### C BC ####[facility] [address] [place], [place] [address]Ziswxi Megan MCH 33.9 pg Normal 26.7-34.0 [facility] Comment on above: Performed By: #### C BC ####[facility] [address] [place], [place] [address]Ocegap Karen MCHC mass conc (RBC) 35.9 g/dL Critically high 29.9-35.2 [facility] Comment on above: Performed By: #### C BC ####[facility] [address] [place], [place] [address]Kcdeir Megan MCV 94.5 fL Normal 81.0-99.0 [facility] Comment on above: Performed By: #### C BC ####[facility] [address] [place] [id number] Megan Monocytes 1.2 103/ul Critically high 0.3-0.8 [facility] Comment on above: Performed By: #### C BC ####[facility] [address] [place], [place] [address]Fdjybw Megan Monocytes/100 leukocytes 8.7 % Normal 1.7-12.0 [facility] Comment on above: Performed By: #### C BC ####[facility] [address] [place], [place] [address]Wvquqw Megan Neutrophils 10.5 103/ul Critically high 1.4-6.5 [facility] Comment on above: Performed By: #### C BC ####[facility] [address] [place], [place] [address]Lnkasm Megan Neutrophils/100 WBC Auto (Bld) 76.6 % Critically high 43.0-75.0 [facility] Comment on above: Performed By: #### C BC ####[facility] [address] [place], [place] [address]Czxfoa Megan Platelet mean volume (PMV) 10.7 fL Normal 9.5-13.5 [facility] Comment on above: Performed By: #### C BC ####[facility] [address] [place], [place] [address]Spzfqr Megan Platelets 302 103/ul Normal 150-450 [facility] Comment on above: Performed By: #### C BC ####[facility] [address] [place], [place] [address]Yevueo Megan WBC (Leukocytes) 13.7 103/ul Critically high 4.0-11.0 [facility] Comment on above: Performed By: #### C BC ####[facility] [address] [place] [id number] Megan CULTURE URINEon 06-09-2017 CULTURE URINE Culture Observations : FINAL, SCANNED RESULTS TO FOLLOW IN HPF Normal [facility] Comment on above: Performed By: #### C BC ####[facility] [address] [place] [id number] Megan ER URINE PROFILEon 7 Bilirubin (total) MODERATE Normal NEGATIVE [facility] Comment on above: Performed By: #### C BC ####[facility] [address] [place] [id number] Megan BLOOD MODERATE Normal NEGATIVE [facility] Comment on above: Performed By: #### C BC ####[facility] [address] [place] [id number] Megan ERUAHD A micrscopic examination will be performed if indicated. Normal [facility] Comment on above: Performed By: #### C BC ####[facility] [address] [place] [id number] Megan Glucose mass conc Negative Normal NEGATIVE [facility] Comment on above: Performed By: #### C BC ####[facility] [address] [place] [id number] Megan pH of blood 5.5 [pH] Normal 5-9 [facility] Comment on above: Performed By: #### C BC ####[facility] [address] [place] [id number] Megan Protein 30 mg/dl Normal [facility] Comment on above: Performed By: #### C BC ####[facility] [address] Megan SPEC GRAVITY 1.025 Normal 1.005-<=1.02 5 [facility] Comment on above: Performed By: #### C BC ####[facility] [address] Megan UR MICRO IND INDICATED Normal [facility] Comment on above: Performed By: #### C BC ####[facility] [address] Megan Urine, clarity CLEAR Normal [facility] Comment on above: Performed By: #### C BC ####[facility] [address] [place] [address] Megan Urine, color BROWN Normal YELLOW [facility] Comment on above: Performed By: #### C BC ####[facility] [address] Megan Urine, ketones presence 40 mg/dl Normal NEGATIVE [facility] Comment on above: Performed By: #### C BC ####[facility] [address] [place] [address] Megan Urine, nitrite presence Negative Normal NEGATIVE [facility] Comment on above: Performed By: #### C BC ####[facility] [address] [place] [address] Megan Urine, urobilinogen 0.2 {Fredy'U}/dL Normal [facility] Comment on above: Performed By: #### C BC ####[facility] [address] [place] [address] Megan WBC (Leukocytes) Negative Normal NEGATIVE [facility] Comment on above: Performed By: #### C BC ####[facility] [address] [place] [address] Megan LIPASEon 06-09-2017 Lipase 152.0 U/L Normal 23.0-300.0 [facility] Comment on above: Performed By: #### C BC ####[facility] [address] Megan PROF 14(COMP METB)on 017 Alanine aminotransferase (ALT) 36 U/L Normal 9-52 [facility] Comment on above: Performed By: #### C BC ####[facility] [address] [place] [id number] Megan Albumin 5.1 g/dL Critically high 3.5-5.0 [facility] Comment on above: Performed By: #### C BC ####[facility] [address] [place] [address] Megan Albumin/Globulin Ratio 1.6 {ratio} Normal [facility] Comment on above: Performed By: #### C BC ####[facility] [address] [place] [address] Megan Alkaline phosphatase (ALP) 98 U/L Normal 38-126 [facility] Comment on above: Performed By: #### C BC ####[facility] [address] [place] [address] Megan Anion gap 22.7 mmol/L Normal [facility] Comment on above: Performed By: #### C BC ####[facility] [address] [place] [address] Megan Aspartate aminotransferase (AST) 37 U/L Critically high 14-36 [facility] Comment on above: Performed By: #### C BC ####[facility] [address] [place] [address] Megan Bilirubin Ql (U) 1.0 mg/dL Normal 0.2-1.3 [facility] Comment on above: Performed By: #### C BC ####[facility] Rus[address] [place], [place] [address]Gerken Megan BUN/Creatinine Ratio 19.5 mg/mg Normal [facility] Comment on above: Performed By: #### C BC ####[facility] [address] [place] [address] Megan Calcium 10.4 mg/dL Critically high 8.4-10.2 [facility] Comment on above: Performed By: #### C BC ####[facility] Looncvbwkh8782 [place], [place] [address]Dieswe Megan Chloride 87 mmol/L Critically low 98-107 [facility] Comment on above: Performed By: #### C BC ####[facility] Kvolvomkns5486 [place], [place] [address]Jezyys Megan CO2 24.0 mmol/L Normal 22.0-30.0 [facility] Comment on above: Performed By: #### C BC ####[facility] Fknioivuew2973 [place], [place] [address]Sqtttp Megan Creatinine 0.91 mg/dL Normal 0.52-1.04 [facility] Comment on above: Performed By: #### C BC ####[facility] Khyrmczwrt2286 [place], [place] [address]Wtuqlt Megan eGFR (non-black) mL/min/{1.73_m2} Normal >=60 Th [facility] Comment on above: Performed By: #### C BC ####[facility] Rjcujqnqhi6059 [place], [place] [address]Atibnh Megan Globulin 3.2 g/dL Normal [facility] Comment on above: Performed By: #### C BC ####[facility] Ldwfnwcgqv3498 [place], [place] [address]Erccaw Megan Glucose mass conc 120 mg/dL Critically high 74-106 Th [facility] Comment on above: Performed By: #### C BC ####[facility] Wnsgiqkojl6852 [place], [place] [address]Kubzyl Megan Potassium molar conc 3.6 mmol/L Normal 3.4-5.0 [facility] Comment on above: Performed By: #### C BC ####[facility] Uhffoeokey9867 [place], [place] [address]Zmnayz Megan Protein 8.3 g/dL Critically high 6.1-8.2 [facility] Comment on above: Performed By: #### C BC ####[facility] T[address]xx[address] [place] [address] Megan Sodium 129 mmol/L Critically low 137-145 [facility] Comment on above: Performed By: #### C BC ####[facility] Nbtewatpvm0812 [place] [id number] Megan Urea nitrogen 18.0 mg/dL Critically high 7.0-17.0 [facility] Comment on above: Performed By: #### C BC ####[facility] Divwnqxqkr4840 [place] [id number] Megan URINE MICROSCOPIC ONLYon CAST NONE SEEN Normal NONE SEEN [facility] Comment on above: Performed By: #### C BC ####[facility] Ucyujvvowj8230 [address] Megan CULTURE INDICATED Normal [facility] Comment on above: Performed By: #### C BC ####[facility] [address] [place] [address] Megan Erythrocytes (RBC) NONE SEEN Normal 0-2 The [place] Comment on above: Performed By: #### C BC ####[facility] Wgesglorhi1612 [address] Megan MUCOUS NONE SEEN Normal NONE SEEN [facility] Comment on above: Performed By: #### C BC ####[facility] Gfqpjykvnr3947 [address] Megan Urine, bacteria in sediment SMALL Normal NONE SEEN [facility] Comment on above: Performed By: #### C BC ####[facility] Desmzougej7446 [place] [id number] Megan Urine, crystals in sediment NONE SEEN Normal NONE SEEN [facility] Comment on above: Performed By: #### C BC ####[facility] Cdbajbipxk1673 [place] [id number] Megan Urine, epithelial cells in sediment FEW Normal [facility] Comment on above: Performed By: #### C BC ####[facility] Chzclkzeeg7787 [address] Megan WBC (Leukocytes) NONE SEEN Normal NONE SEEN [facility] Comment on above: Performed By: #### C BC ####[facility] Zygwbvxcms2319 [address] Megan XR ABD FLAT UP/PA Vianney 06-09 XR ABD FLAT UP/PA [address] [place] [address] Patient: SEAN MALDONADO Exam Date: 06/09/2017DOB: 1970 Gender:F : DR LISBET SALCEDO D.O. Admission #: [id number] : Order #: [id number] HERE TO VIEW EXAM RADIOLOGY REPORT PROCEDURE: RADIOGRAPH ABDOMEN FLAT/UPRIGHT AND PA CHEST COMPARISON: XR CHEST 2 V, 01/13/2017. INDICATIONS: Acute umbilical pain FINDINGS: LUNGS: No infiltrate, pneumothorax, or pleural effusion. Stable small right midlung granuloma.MEDIASTINUM: No abnormal widening. BOWEL GAS PATTERN: Non-obstructed. Normal bowel gas pattern.FREE AIR: None.CALCIFICATIONS: None significant.BONES: No fracture or visible bone lesion.OTHER: Negative. CONCLUSION: 1. No acute cardiopulmonary process.2. No bowel obstruction or suspicious findings. Dictated by: Titi Thurman M.D. on 06/09/2017 at 23:23 Approved by: Titi Thurman M.D. on 06/09/2017 at 23:26 Normal [facility] AMMONIAon 04-27-2017 Ammonia ug/dL Critically low 10-30 [facility] Comment on above: Performed By: #### A MM ####[facility] Nukeysibke9519 [address] Megan CARDIAC KRISTEL ADMITon 017 CKMB 1.02 ng/mL Normal <=2.37 [facility] Comment on above: Performed By: #### E TH, LIPA, LIVER, BMP, CMADM ####[facility] Ilcpmclcvs9725 [address] Megan Creatine kinase (CK) 72 U/L Normal 30-135 [facility] Comment on above: Performed By: #### E TH, LIPA, LIVER, BMP, CMADM ####[facility] Qc[address] [place] [address] Megan INR Coag RelTime (Bld) SEE BELOW Normal [facility] Comment on above: Result Comment: <0.0 34 ng/ml NEGATIVE 0.034-0.119 INDETERMINATE 0.120 AMI CUT OFF Performed By: #### E TH, LIPA, LIVER, BMP, CMADM ####[facility] [address] [place] [address] Megan Result Comment: CHULA RED INR: 2.0 - 3.0 CONDITIONS NOT LISTED BELOW 2.5 - 3.5 FOR PROSTHETIC HEART VALVE REPLACEMENT 2.5 - 3.5 RECURRENT THROMBOSIS Performed By: #### P TT, PT ####[facility] [address]zrmwios[address] [place] [address] Megan MARIO 21.1 ng/mL Normal <=61.5 [facility] Comment on above: Performed By: #### E TH, LIPA, LIVER, BMP, CMADM ####[facility] Pm[address]xe[address]ou[address] [place] [address] Megan TROP <0.012 Normal <=0.034 [facility] Comment on above: Performed By: #### E TH, LIPA, LIVER, BMP, CMADM ####[facility] [address] [place] [address] Megan CBC AUTO DIFFon 04-27-2017 Basophils Auto #/vol (Bld) 0.1 103/ul Normal 0.0-0.1 [facility] Comment on above: Performed By: #### C BC ####[facility] T[address]ovaixdou[address] [place] [address] Megan Basophils/100 WBC Auto (Bld) 0.7 % Normal 0.2-2.0 [facility] Comment on above: Performed By: #### C BC ####[facility] Px[address] [place] [address] Megan Eosinophils 0.0 103/ul Normal 0.0-0.7 [facility] Comment on above: Performed By: #### C BC ####[facility] Skzdosnjlb9240 [address] Megan Eosinophils/100 leukocytes 0.1 % Critically low 0.9-7.0 [facility] Comment on above: Performed By: #### C BC ####[facility] Ijkmrefyho3227 [address] Megan Erythrocyte distribution width Auto Ratio (RBC) 13.2 % Normal 11.0-15.0 [facility] Comment on above: Performed By: #### C BC ####[facility] Flvifzukxp2604 [address] Megan Erythrocytes (RBC) 4.81 106/ul Normal 4.20-5.40 [facility] Comment on above: Performed By: #### C BC ####[facility] Jqztipgsrp4007 [address] Megan Hematocrit (HCT) 48.2 % Critically high 36.0-48.0 [facility] Comment on above: Performed By: #### C BC ####[facility] Tpcgtlycna5505 [address] Megan Hemoglobin mass conc (Bld) 17.0 g/dL Critically high 12.0-16.0 [facility] Comment on above: Performed By: #### C BC ####[facility] [address] [place] [address] Megan IG # 0.07 10e3/ul Critically high 0.00-0.03 [facility] Comment on above: Performed By: #### C BC ####[facility] Hvlzojwxli8976 [address] Megan IG % 0.6 % Critically high 0.0-0.5 [facility] Comment on above: Performed By: #### C BC ####[facility] Mseeilhfgc3210 [address] Megan Lymphocytes 1.8 103/ul Normal 1.2-3.8 [facility] Comment on above: Performed By: #### C BC ####[facility] Cvfggccooe6927 [address] Megan Lymphocytes/100 leukocytes 14.9 % Critically low 20.5-60.0 [facility] Comment on above: Performed By: #### C BC ####[facility] Dwshzabxbd7073 [address] Megan MANUAL DIFF REQ NO Normal [facility] Comment on above: Result Comment: NO Performed By: #### C BC ####[facility] Fxmldfrebd1239 [place] [id number] Megan MCH 35.3 pg Critically high 26.7-34.0 [facility] Comment on above: Performed By: #### C BC ####[facility] Bprcsbsygd1819 [address] Megan MCHC mass conc (RBC) 35.3 g/dL Critically high 29.9-35.2 [facility] Comment on above: Performed By: #### C BC ####[facility] Zuv[address] [place] [address] Megan MCV 100.2 fL Critically high 81.0-99.0 [facility] Comment on above: Performed By: #### C BC ####[facility] Kwrlarakwi[address] [place] [address] Megan Monocytes 0.4 103/ul Normal 0.3-0.8 [facility] Comment on above: Performed By: #### C BC ####[facility] [address] [place] [address] Megan Monocytes/100 leukocytes 2.9 % Normal 1.7-12.0 [facility] Comment on above: Performed By: #### C BC ####[facility] Fwjmcpktsv9521 [address] Megan Neutrophils 9.9 103/ul Critically high 1.4-6.5 [facility] Comment on above: Performed By: #### C BC ####[facility] Bcztqimwik4380 [address] Megan Neutrophils/100 WBC Auto (Bld) 80.8 % Critically high 43.0-75.0 [facility] Comment on above: Performed By: #### C BC ####[facility] Pzorudnpww3182 [address] Megan Platelet mean volume (PMV) 10.3 fL Normal 9.5-13.5 [facility] Comment on above: Performed By: #### C BC ####[facility] Pbhfwgernc0538 [place] [address] Megan Platelets 357 103/ul Normal 150-450 [facility] Comment on above: Performed By: #### C BC ####[facility] Dphfckdsqy9885 [address] Megan WBC (Leukocytes) 12.3 103/ul Critically high 4.0-11.0 e [facility] Comment on above: Performed By: #### C BC ####[facility] Jjngakhzfl5413 [address] ETHANOL (BLD ALC)on 04-27-20 17 ALC NOTE NOTE: 80 mg/dl is th e legal limit for a blood alcohol level Normal [facility] Comment on above: Result Comment: NOTE : 80 mg/dl is the legal limit for a blood alcohol level Performed By: #### E TH, LIPA, LIVER, BMP, CMADM ####[facility] Fgrhscdoes3451 [address] Ethanol mg/dL Normal [facility] Comment on above: Performed By: #### E , LIPA, LIVER, BMP, CMADM ####[facility] Orjlgpyagy7794 [address] Megan LIPASEon 04-27-2017 Lipase 133.0 U/L Normal 23.0-300.0 [facility] Comment on above: Performed By: #### E TH, LIPA, LIVER, BMP, CMADM ####[facility] Udtnrhqxxw5554 [address] Megan LIVER PROFILEon 04-27-2017 Alanine aminotransferase (ALT) 28 U/L Normal 9-52 [facility] Comment on above: Performed By: #### E TH, LIPA, LIVER, BMP, CMADM ####[facility] Snybyuvdzx3172 [place] [address] Megan Albumin 5.2 g/dL Critically high 3.5-5.0 [facility] Comment on above: Performed By: #### E , LIPA, LIVER, BMP, CMADM ####[facility] Iwdaejfeqt8211 [place] [address] Megan Albumin/Globulin Ratio 1.6 {ratio} Normal [facility] Comment on above: Performed By: #### E , LIPA, LIVER, BMP, CMADM ####[facility] Mwrsteprln4263 [address] Megan Alkaline phosphatase (ALP) 107 U/L Normal 38-126 [facility] Comment on above: Performed By: #### E , LIPA, LIVER, BMP, CMADM ####[facility] [address]dmtarcd[address] [place] [address] Megan Aspartate aminotransferase (AST) 28 U/L Normal 14-36 [facility] Comment on above: Performed By: #### E , LIPA, LIVER, BMP, CMADM ####[facility] Yx[address]acgia[address] [place], [place] [address]Gerken Megan BILI, CONJUGATED 0.0 mg/dL Normal 0.0-0.3 [facility] Comment on above: Performed By: #### E , LIPA, LIVER, BMP, CMADM ####[facility] [address] [place] [address] Megan Bilirubin Ql (U) 0.5 mg/dL Normal 0.2-1.3 [facility] Comment on above: Performed By: #### E , LIPA, LIVER, BMP, CMADM ####[facility] Zopystvwbq3034 [place] [address] Megan Globulin 3.2 g/dL Normal [facility] Comment on above: Performed By: #### E , LIPA, LIVER, BMP, CMADM ####[facility] Lvhbphrssh1700 [place] [address] Megan Protein 8.4 g/dL Critically high 6.1-8.2 [facility] Comment on above: Performed By: #### E TH, LIPA, LIVER, BMP, CMADM ####[facility] Ovhbpjbubz0819 [place] [address] Megan PH VENOUS WITH COon 04-27-20 17 CARBOXY RANGE NORMAL CONCENTRATION : NON-SMOKERS: 0 - 2% SMOKERS: < OR = 9% Normal [facility] Comment on above: Result Comment: NORM AL CONCENTRATION: NON-SMOKERS: 0 - 2% SMOKERS: < OR = 9% Performed By: #### P HVENCO ####[facility] Acurvaqayj1018 [address] Megan CO2 32.8 mmHg Critically low 40.0-52.0 [facility] Comment on above: Performed By: #### P HVENCO ####[facility] [address] [place] [address] Megan Hemoglobin mass conc (Bld) 7.0 % Normal [facility] Comment on above: Performed By: #### P HVENCO ####[facility] Geyypjxghw7563 [address] Megan Hemoglobin mass conc (Bld) 0.0 % Critically low 0.4-1.5 [facility] Comment on above: Performed By: #### P HVENCO ####[facility] Nuftbrmnoc6463 [address] Megan Hemoglobin mass conc (Bld) 46.7 % Critically low 94.0-100.0 [facility] Comment on above: Performed By: #### P HVENCO ####[facility] Pbbdnyrmfw1005 [place] [address] Megan pH VENOUS 7.50 Critically high 7.33-7.43 [facility] Comment on above: Performed By: #### P HVENCO ####[facility] Zrkkvsptaw[address]01 [address] Megan PROF CHEM 8 (BAS METB)on Anion gap 17.6 mmol/L Normal [facility] Comment on above: Performed By: #### E , LIPA, LIVER, BMP, CMADM ####[facility] Ggimuddatx2307 [address] Megna BUN/Creatinine Ratio 12.2 mg/mg Normal [facility] Comment on above: Performed By: #### E , LIPA, LIVER, BMP, CMADM ####[facility] [address] [place] [address] Megan Calcium 10.0 mg/dL Normal 8.4-10.2 [facility] Comment on above: Performed By: #### E , LIPA, LIVER, BMP, CMADM ####[facility] [address]xj[address] [place] [address] Megan Chloride 100 mmol/L Normal 98-107 [facility] Comment on above: Performed By: #### E , LIPA, LIVER, BMP, CMADM ####[facility] [address] [place] [address] Megan CO2 28.0 mmol/L Normal 22.0-30.0 [facility] Comment on above: Performed By: #### E , LIPA, LIVER, BMP, CMADM ####[facility] Bypmunusnl[address] [place] [address] Megan Creatinine 0.99 mg/dL Normal 0.52-1.04 [facility] Comment on above: Performed By: #### E , LIPA, LIVER, BMP, CMADM ####[facility] S[address] [place] [address] Megan eGFR (non-black) mL/min/{1.73_m2} Normal >=60 Th [facility] Comment on above: Performed By: #### E , LIPA, LIVER, BMP, CMADM ####[facility] [address]fks[address] [place] [address] Megan eGFR (non-black) 60 mL/min/{1.73_m2} Normal >=60 [facility] Comment on above: Performed By: #### E , LIPA, LIVER, BMP, CMADM ####[facility] Zhgpdgdcvf7450 [place] [address] Megan Glucose mass conc 176 mg/dL Critically high 74-106 Th [facility] Comment on above: Performed By: #### E TH, LIPA, LIVER, BMP, CMADM ####[facility] Qtsrgiaovs5467 [place] [address] Megan Potassium molar conc 4.1 mmol/L Normal 3.4-5.0 [facility] Comment on above: Performed By: #### E , LIPA, LIVER, BMP, CMADM ####[facility] Flezcykvrr9497 [place] [address] Megan Sodium 141 mmol/L Normal 137-145 [facility] Comment on above: Performed By: #### E , LIPA, LIVER, BMP, CMADM ####[facility] Cjeawyigqp2648 [place] [address] Megan Urea nitrogen 12.0 mg/dL Normal 7.0-17.0 [facility] Comment on above: Performed By: #### E , LIPA, LIVER, BMP, CMADM ####[facility] Merapcpayh8486 [place] [address] Megan PROTIMEon 04-27-2017 INR Coag RelTime (PPP) 1.08 {INR} Normal [facility] Comment on above: Performed By: #### P TT, PT ####[facility] Lrulkczeqc4884 [place] [address] Megan Prothrombin time (PT) Coag time (PPP) 11.2 s Normal 9.7-11.7 [facility] Comment on above: Performed By: #### P TT, PT ####[facility] Xddviddldo9775 [place] [address] Megan PT NORMAL PLEASE NOTE: NORMAL RANGE CHANGE 04-24-2014 DUE TO REAGENT LOT CHANGE Normal [facility] Comment on above: Result Comment: ISHMAEL OSUNA NOTE: NORMAL RANGE CHANGE 04-24-2014 DUE TO REAGENT LOT CHANGE Performed By: #### P TT, PT ####[facility] Ipijfgkrtm1532 [place], [place] [address]AhhiusMeir Guzman PTTon 04-27-2017 aPTT PLEASE NOTE: NORMAL RANGE CHANGE 07-01-2015 DUE TO REAGENT LOT CHANGE Normal [facility] Comment on above: Result Comment: ISHMAEL OSUNA NOTE: NORMAL RANGE CHANGE 07-01-2015 DUE TO REAGENT LOT CHANGE Performed By: #### P TT, PT ####[facility] Xjwrwegbca9830 [place], [place] [address]RhqotiMeir Guzman aPTT 21.0 s Critically low 22.1-30.2 [facility] Comment on above: Performed By: #### P TT, PT ####[facility] Uqttccvnzb0184 [place], [place] [address]GubscmMeir Guzman Vital Signs Date Time Vital Sign Value Performing Clinician Facility 04-18-2025 11:45-0400 Body mass index (BMI) [Ratio] 20.11 kg/m2 Angeles Perales MD Work Phone: [facility] 04-18-2025 11:45-0400 Body weight 58.24 kg Angeles Perales MD Work Phone: [facility] 04-18-2025 11:45-0400 Diastolic blood pressure 87 mm[Hg] Angeles Perales MD Work Phone: [facility] 04-18-2025 11:45-0400 Heart rate 102 /min Angeles Perales MD Work Phone: [facility] 04-18-2025 11:45-0400 Respiratory rate 20 /min Angeles Perales MD Work Phone: [facility] 04-18-2025 11:45-0400 SaO2% (BldA) [Mass fraction] 96 % Angeles Perales MD Work Phone: [facility] 04-18-2025 11:45-0400 Systolic blood pressure 161 mm[Hg] Angeles Perales MD Work Phone: [facility] 03-17-2025 10:59-0400 Diastolic blood pressure 93 mm[Hg] Pfo [facility] 03-17-2025 10:59-0400 Systolic blood pressure 176 mm[Hg] o [facility] 03-17-2025 10:08-0400 Body height 170.2 cm [facility] 03-17-2025 10:08-0400 Body mass index (BMI) [Ratio] 20.54 kg/m2 [facility] 03-17-2025 10:08-0400 Body temperature 97.11 [degF] o [facility] 03-17-2025 10:08-0400 Body weight 59.51 kg o [facility] 03-17-2025 10:08-0400 Heart rate 90 /min [facility] 03-17-2025 10:08-0400 Respiratory rate 18 /min [facility] 03-17-2025 10:08-0400 SaO2% (BldA) [Mass fraction] 100 % [facility] 03-06-2025 11:45-0400 Diastolic blood pressure 84 mm[Hg] Shahriar Rosales MD Work Phone: [facility] 03-06-2025 11:45-0400 Heart rate 95 /min Shahriar Rosales MD Work Phone: [facility] 03-06-2025 11:45-0400 SaO2% (BldA) [Mass fraction] 37 % Shahriar Rosales MD Work Phone: [facility] 03-06-2025 11:45-0400 Systolic blood pressure 153 mm[Hg] Shahriar Rosales MD Work Phone: [facility] 03-06-2025 11:25-0400 Body height 170.[address] 03-06-2025 11:25-0400 Body mass index (BMI) [Ratio] 20.55 kg/m2 [address] 03-06-2025 11:25-0400 Body weight 59.[address] 12-03-2024 14:23-0400 Body height 170.18 cm [facility] 12-03-2024 14:23-0400 Body mass index (BMI) [Ratio] 21.5 kg/m2 [facility] 12-03-2024 14:23-0400 Body temperature 98.8 [degF] [facility] 12-03-2024 14:23-0400 Body weight 62.31 kg [facility] 12-03-2024 14:23-0400 Diastolic blood pressure 88 mm[Hg] [facility] 12-03-2024 14:23-0400 Heart rate 88 /min [facility] 12-03-2024 14:23-0400 Respiratory rate 16 /min [facility] 12-03-2024 14:23-0400 SaO2% (BldA) [Mass fraction] 99 % [facility] 12-03-2024 14:23-0400 Systolic blood pressure 139 mm[Hg] [facility] 08-05-2024 14:09-0500 Body height 170.2 cm Silvia CastanonLachellein RADIOTELEGRAPH OPERATOR-AUDITOR Work Phone: [facility] 08-05-2024 14:09-0500 Body mass index (BMI) [Ratio] 21.58 kg/m2 Silvia Chunin RADIOTELEGRAPH OPERATOR-AUDITOR Work Phone: [facility] 08-05-2024 14:09-0500 Body weight 62.51 kg Silvia CastanonLachellein RADIOTELEGRAPH OPERATOR-AUDITOR Work Phone: [facility] 08-05-2024 14:09-0500 Diastolic blood pressure 82 mm[Hg] Silvia Chunin RADIOTELEGRAPH OPERATOR-AUDITOR Work Phone: [facility] 08-05-2024 14:09-0500 Systolic blood pressure 144 mm[Hg] Silvia CastanonLachellein RADIOTELEGRAPH OPERATOR-AUDITOR Work Phone: [facility] 06-18-2024 14:49-0500 Body height 170.18 cm [facility] 06-18-2024 14:49-0500 Body mass index (BMI) [Ratio] 20.4 kg/m2 [facility] 06-18-2024 14:49-0500 Body weight 59.08 kg [facility] 06-18-2024 14:49-0500 Diastolic blood pressure 79 mm[Hg] [facility] 06-18-2024 14:49-0500 Heart rate 86 /min [facility] 06-18-2024 14:49-0500 SaO2% (BldA) [Mass fraction] 100 % [facility] 06-18-2024 14:49-0500 Systolic blood pressure 128 mm[Hg] [facility] 08-03-2023 13:00-0500 Body height 170.2 cm [facility] 08-03-2023 13:00-0500 Body mass index (BMI) [Ratio] 19.58 kg/m2 [facility] 08-03-2023 13:00-0500 Body weight 56.7 kg [facility] 08-03-2023 13:00-0500 Diastolic blood pressure 90 mm[Hg] [facility] 08-03-2023 13:00-0500 Systolic blood pressure 162 mm[Hg] [facility] 06-06-2023 13:40-0400 Body height 170.18 cm Marvin Erazo Other [facility] Other 06-06-2023 13:40-0400 Body mass index (BMI) [Ratio] 20.17 kg/m2 Marvin Erazo Other [employer] Other 06-06-2023 13:40-0400 Body temperature 96.9 [degF] Marvin Erazo Other [employer] Other 06-06-2023 13:40-0400 Body weight 58.42 kg Marvin Erazo Other [employer] Other 10-31-2023 13:40-0400 Diastolic blood pressure 80 mm[Hg] Marvin Erazo Other [employer] Other 06-06-2023 13:40-0400 Respiratory rate 18 /min Marvin Erazo Other [employer] Other 06-06-2023 13:40-0400 SaO2% (BldA) [Mass fraction] 98 % Marvin Erazo Other [employer] Other 06-06-2023 13:40-0400 Systolic blood pressure 140 mm[Hg] Marvin Erazo Other [employer] Other Encounters Encounter Date Encounter Type Care Provider Facility Start: 05-09-2025 End: 05-12-2025 ambulatory JOSE MANUEL GALICIA Facility:[facility] Start: 05-08-2025 End: 05-08-2025 ambulatory LUIS CELINA Facility:[facility] Start: 05-02-2025 End: 05-02-2025 ambulatory SHAHRIARLALITO HERRINGPRLeia [facility] Start: 04-30-2025 End: 04-30-20[facility] Start: 04-28-2025 End: 04-28-2025 ambulatory [facility] Facility:[facility] Start: 04-18-2025 End: 04-18-2025 Documentation procedure Carmen Arreola [facility] - [facility] Start: 04-18-2025 End: 04-18-2025 ambulatory ANGELES PERALES [facility] Start: 04-18-2025 End: 04-18-2025 Office outpatient visit 40 minutes Angeles Perales MD Work Phone: Rica Arreola [facility] - Medical Oncology Comment on above: 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) Start: 04-03-2025 End: 04-03-2025 ambulatory SHAHRIAR ROSALES [facility] Start: 03-17-2025 End: 03-17-2025 [facility] Comment on above: 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) Start: 03-17-2025 End: 03-17-2025 Office outpatient new 60 minutes Angeles Perales MD Work Phone: Rica Arreola [facility] - Medical Oncology Comment on above: 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) Start: 03-10-2025 End: 03-10-2025 Evaluation and management of inpatient KAREN Shepard [facility] Start: 03-07-2025 End: 03-07-2025 Admission to [address] Pre-Admission Clinic On [facility] Start: 03-07-2025 End: 03-07-2025 Telephone encounter Quintin Barnes RN [facility] Start: 03-07-2025 End: 03-07-2025 Evaluation and management of inpatient LIGIA CASTELLANOS [facility] Start: 03-06-2025 End: 03-06-2025 Office outpatient new 45 minutes Shahriar Rosales MD Work Phone: [facility] Comment on above: Abnormal CT scan, ch est (Primary Dx); Blood in sputum; Hilar adenopathy; Tobacco use disorder; COPD, mild ([facility]) Start: 03-06-2025 End: 03-06-2025 ambulatory [facility] Sleep Pft Lab 3 [facility] Comment on above: Chronic obstructive pulmonary disease, unspecified COPD type ([facility]) [J44.9] (Primary Dx); Abnormal CT of the chest Start: 03-05-2025 End: 03-05-2025 Telephone encounter Verito ROSADOP [facility] Start: 02-24-2025 End: 02-24-2025 [facility] Start: 02-04-2025 End: 02-04-2025 Telephone encounter Alvina Cuellar CMA [facility] Physician s Cardiology Start: 12-03-2024 End: 12-03-2024 ambulatory [facility] Work Phone: Start: 12-03-2024 End: 12-03-2024 Patient encounter procedure [facility] Nephrology Klaus Work Phone: Start: 11-06-2024 End: 11-06-2024 Telephone encounter S[facility] Lujan [facility] Start: 08-05-2024 End: 08-05-2024 Patient encounter procedure Silvia Hamilton RADIOTELEGRAPH OPERATOR-AUDITOR Work Phone: [facility] Work Phone: Start: 08-05-2024 End: 08-05-2024 Periodic preventive med est patient 40-64yrs Silvia Hamilton RADIOTELEGRAPH OPERATOR-AUDITOR Work Phone: [facility] Physicians Obstetrics/Gynecology Comment on above: Women's annual routi ne gynecological examination (Primary Dx); Cervical smear, as part of routine gynecological examination Start: 08-05-2024 End: 08-05-2024 ambulatory [facility] Start: 08-05-2024 End: 08-05-2024 ambulatory [facility] Start: 08-05-2024 End: 08-05-2024 Encounter for gynecological examination (general) (routine) without abnormal findings Silvia Hamilton RADIOTELEGRAPH OPERATOR-AUDITOR Work Phone: [facility] Start: 06-28-2024 End: 06-28-2024 ambulatory LOVE RITTER [facility] Start: 06-19-2024 End: 06-19-2024 ambulatory [facility] Start: 06-18-2024 End: 06-18-2024 Patient encounter procedure [facility] Nephrology Klaus Work Phone: Start: 06-18-2024 End: 06-18-2024 ambulatory Loverico Maldonado APRN-AUDITOR Work Phone: [facility] Comment on above: Screening for lung c ancer (Primary Dx); History of smoking 30 or more pack years Start: 06-12-2024 End: 06-12-2024 [facility] Start: 06-07-2024 End: 06-18-2024 Orders Only Chapis Edgar RADIOTELEGRAPH OPERATOR-CNM Work Phone: [facility] Physicians Obstetrics/Gynecology Comment on above: Screening mammogram for breast cancer (Primary Dx) Start: 08-03-2023 End: 08-03-2023 Encounter for gynecological examination (general) (routine) without abnormal findings [facility] Start: 08-03-2023 End: 08-03-2023 Patient encounter procedure [facility] Ob Cultural Historian [facility] [place] Comment on above: Cervical smear, as p art of routine gynecological examination (Primary Dx); Pap smear for cervical cancer screening Start: 06-06-2023 End: 06-06-2023 [facility]ulatory [facility] Other Start: 06-06-2023 Office outpatient ne w 30 minutes [facility] Start: 06-09-2017 End: 06-09-2017 Ambulatory LISBET SALCEDO Facility: Start: 04-27-2017 End: 04-27-2017 Ambulatory [facility] Facility: Procedures Date Procedure Procedure Detail Performing Clinician Start: 04-18-2025 Follow-up visit Follow-up ANGELES PERALES Start: 03-06-2025 PULMONARY FUNCTION TEST Shahriar Rosales MD Work Phone: Start: 08-05-2024 Microscopic observat ion [Identifier] in Cervix by Cyto stain Sobia Lujan MA Start: 08-03-2023 Microscopic observat ion [Identifier] in Cervix by Cyto stain Chapis Edgar RADIOTELEGRAPH OPERATOR-CNM Work Phone: Start: 05-31-2022 Microscopic observat ion [Identifier] in Cervix by Cyto stain [facility] Cultural Historian Plan of Treatment Date Care Activity Detail Author Start: 08-05-2027 Screening for malign ant neoplasm of cervix Pap Smear [facility] Start: 08-03-2026 Screening for malign ant neoplasm of cervix Pap Smear [facility] Start: 04-18-2026 Adult BMI Screening Adult BMI Screen ing [facility] Start: 04-18-2026 Tobacco Screening Tobacco Screening [facility] Start: 03-17-2026 Adult BMI Screening Adult BMI Screen ing [facility] Start: 03-17-2026 Tobacco Screening Tobacco Screening [facility] Start: 03-10-2026 Adult BMI Screening Adult BMI Screen ing [facility] Start: 03-10-2026 Tobacco Screening Tobacco Screening [facility] Start: 03-07-2026 Tobacco Screening Tobacco Screening [facility] Start: 03-06-2026 Adult BMI Screening Adult BMI Screen ing [facility] Start: 03-06-2026 Tobacco Screening Tobacco Screening [facility] Start: 02-24-2026 Tobacco Screening Tobacco Screening [facility] Start: 08-05-2025 Adult BMI Screening Adult BMI Screen ing [facility] Start: 08-05-2025 Tobacco Screening Tobacco Screening [facility] Start: 06-23-2025 End: 06-23-2025 Patient encounter procedure 06/23/2025 1:30 PM EST Appointment [facility] - Mammography/DEXA Imaging [address] [place] [phone] [facility] - Mammography/DEXA Imaging Start: 05-31-2025 Screening for malign ant neoplasm of cervix Pap Smear [facility] Start: 05-16-2025 End: 05-16-2025 Patient encounter procedure 05/16/2025 11:15 AM EDT Office Visit Rica Arreola [facility] - Medical Oncology Critical access hospital[address] [place] [phone] Angeles Perales MD [facility] [address] [place] [address] Rica Arreola [facility] - Medical Oncology Start: 05-02-2025 End: 05-02-2025 Patient encounter procedure 05/02/2025 10:30 AM EDT Appointment [facility] Rica Ngo Baraga [facility] - Pet Imaging [address] [place] [address] [facility] Rica Arreola [facility] - Pet Imaging Start: 04-18-2025 End: 04-18-2025 Patient encounter procedure 04/18/2025 11:30 AM EDT Office Visit Rica Arreola [facility] - Medical Oncology [address] [place] [address] Angeles Perales MD [address] [facility] [address] [place] [address] Ricananda Arreola [facility] - Medical Oncology Start: 04-07-2025 Influenza vaccination Influenza Vacc ine [facility] Start: 04-03-2025 End: 04-03-2025 Patient encounter procedure 04/03/2025 12:45 PM EDT Appointment [facility] - MRI Imaging [address] [place] [phone] Shahriar Rosales MD [address] [place] [address] [facility] - MRI Imaging Start: 03-28-2025 End: 03-28-2025 Patient encounter procedure 03/28/2025 11:00 AM EDT Appointment [facility] Rica Ngo Baraga [facility] - Pet Imaging [address] [place] [address] [facility] Rica Arreola [facility] - Pet Imaging Start: 03-10-2025 End: 03-10-2025 Admission to same day surgery center 03/10/2025 10:00 AM EDT - 03/10/2025 11:15 AM EDT Surgery [facility] - Endoscopy [address] [facility] [place] [phone] Karen Diamond MD [address] [address] BRONCHOSCOPY [31786 (CPT )] [facility] Endoscopy Comment on above: BRONCHOSCOPY [79856 (CPT )] Start: 03-10-2025 End: 03-10-2025 [facility] incl fluor gdnce dx w/cell washg spx BRONCHOSCOPY Pulmonary nodule 03/10/2025 10:[address] [facility] Start: 03-10-2025 End: 03-10-2025 ENDOBRONCHIAL ULTRASOUND BRONCHOSCOPY ENDOBRONCHIAL ULTRASOUND BRONCHOSCOPY Pulmonary nodule 03/10/2025 10:00 AM EDT [facility] Start: 03-10-2025 Subsequent hospital visit by physician 03/10/2025 10:00 AM EDT Hospital Encounter [facility] Endoscopy [address] [place] [phone] Karen Diamond MD [address] [place] [address] [facility] Endoscopy Start: 03-06-2025 End: 03-06-2025 ambulatory 03/06/2025 11:30 AM EDT Support Visit [facility] [address] [place] [phone] [facility] Start: 03-06-2025 End: 03-06-2025 Patient encounter procedure 03/06/2025 11:30 AM EDT Office Visit [facility] [address] [place] [phone] Shahriar Rosales MD [address] [id number] [facility] Start: 08-05-2024 End: 08-05-2025 Cytopathology procedure, preparation of smear, genital source Pap Smear Pathology and Cytology Routine Cervical smear, as part of routine gynecological examination Expected: 08/05/2024 (Approximate), Expires: 08/05/2025 [facility] Work Phone: Comment on above: Expected: 08/05/2024 (Approximate), Expires: 08/05/2025 Start: 08-05-2024 End: 08-05-2024 Patient encounter procedure 08/05/2024 2:00 PM EST Office Visit [facility] [address] [place] [phone] Silvia Hamilton, RADIOTELEGRAPH OPERATOR-AUDITOR [address] [facility] [place] [address] [facility] Start: 08-03-2024 Adult BMI Screening Adult BMI Screen ing [facility] Start: 08-03-2024 Tobacco Screening Tobacco Screening [facility] Start: 07-04-2024 Tobacco Screening Tobacco Screening [facility] Start: 06-28-2024 End: 06-28-2024 Patient encounter procedure 06/28/2024 1:30 PM EST Appointment [facility] - CT Imaging [address] [place] [phone] Love Maldonado, RADIOTELEGRAPH OPERATOR-AUDITOR [address] [place] [address] [facility] - CT Imaging Start: 06-19-2024 End: 06-19-2024 Patient encounter procedure 06/19/2024 1:45 PM EST Appointment [facility] - Mammography/DEXA Imaging [address] [place] [address] [facility] - Mammography/DEXA Imaging Start: 06-18-2024 End: 06-18-2025 CT Chest for screening WO contrast CT low dose lung screening (Annual) Imaging Routine Screening for lung cancer History of smoking 30 or more pack years Expected: 06/18/2024, Expires: 06/18/2025 [facility] Work Phone: Comment on above: Expected: 06/18/2024 , Expires: 06/18/2025 Start: 06-07-2024 End: 06-07-2025 DBT Breast - bilateral screening Mammography screening bilateral with CAD Imaging Routine Screening mammogram for breast cancer Expected: 06/07/2024, Expires: 06/07/2025 [employer] Work Phone: Comment on above: Expected: 06/07/2024 , Expires: 06/07/2025 Start: 04-07-2024 Influenza vaccination Influenza Vacc ine [facility] Start: 08-03-2023 End: 08-03-2024 Cytopathology procedure, preparation of smear, genital source Pap Smear Pathology and Cytology Routine Cervical smear, as part of routine gynecological examination Pap smear for cervical cancer screening Expected: 08/03/2023 (Approximate), Expires: 08/03/2024 [employer] Work Phone: Comment on above: Expected: 08/03/2023 (Approximate), Expires: 08/03/2024 Start: 04-07-2023 Influenza vaccination Influenza Vacc ine [facility] Start: 2020 Administration of varicella zoster vaccine Zoster (Shingles) Vaccine (1 of 2) [facility] Start: 1989 Administration of varicella zoster vaccine Zoster (Shingles) Vaccine (1 of 2) [facility] Start: 1989 DTaP,Tdap and Td Vaccines (1 - Tdap) DTaP,Tdap and Td Vaccines (1 - Tdap) [facility] Start: 1982 Depression Screening Depression Scre ening [facility] Start: 1970 Statin Use: Cardiovascular Statin Use: Cardiovascular [facility] Start: 1970 Tobacco Counseling Tobacco Counselin g [facility] Renal function 2000 panel - Serum or Plasma [facility] End: 03-17-2026 Unlisted Lab Test Unlisted Lab Test Lab Routine Bronchogenic cancer of right lung ([facility]) 1 Occurrences starting 03/17/2025 until 03/17/2026 [employer] Work Phone: Comment on above: 1 Occurrences starti ng 03/17/2025 until 03/17/2026 [facility] Immunizations Immunization Date Immunization Notes Care Provider Darnell jonesgregory 06-11-2011 influenza virus vacc ine, unspecified formulation [facility] Cultural Historian [facility] Payers Date Payer Category Payer Medicaid [employer] [id number] 2019-Present [phone] [address] [place] [address] [id number] 2019 Medicaid HMO [employer] [id number] 2019 Medicaid [id number] 1970 Unknown [id number] [id number] 1970 Unknown [id number] 2.840.1.508310.3.579.2.128 1970 Unknown [id number] 2.16840.1.827912.3.579.2.128 1970 Unknown [id number] [id number] 1970 Unknown [id number] 2.16840.1.745380.3.579.2.1286 1970 Unknown [id number] 2.16840.1.417840.3.579.2.1286 1970 Unknown [id number] 2.16.840.1.205887.3.579.2.1286 1970 Unknown [id number] 2.16.840.1.803332.3.579.2.1286 1970 Unknown [id number] 2.16.840.1.347008.3.579.2.1286 1970 Unknown [id number] 2.16.840.1.975872.3.579.2.1286 1970 Unknown [id number] 2.16.840.1.853999.3.579.2.1286 1970 Unknown [id number] 2.16.840.1.287206.3.579.2.1286 1970 Unknown [id number] 2.16.840.1.887657.3.579.2.1286 1970 Unknown [id number] 2.16.840.1.341865.3.579.2.1286 1970 Unknown [id number] 2.16.840.1.028802.3.579.2.1286 1970 Unknown [id number] 2.16.840.1.527485.3.579.2.1286 1970 Unknown [id number] 2.16.840.1.282816.3.579.2.1286 1959 Unknown [id number] Social History Date Type Detail Facility Unknown if ever smoked [employer] Other Start: 09-17-2020 End: 08-05-2024 [facility] Start: 04-10-2024 End: 12-03-2024 Tobacco smoking status COIS Smoker (finding) [facility] Start: 03-12-2015 End: 06-18-2024 Sex Female (finding) [facility] Start: 1970 Sex Assigned At Female [facility] Start: 08-07-1984 End: 03-07-2025 Tobacco smoking status NHIS Smokes tobacco daily [facility] Start: 08-07-1984 History of tobacco use Cigarette Smoker [facility] Start: 09-17-2020 End: 08-05-2024 Cigarettes smoked current (pack per day) - Reported 1 [facility] Start: 08-05-2024 End: 03-07-2025 Tobacco use and exposure Smokeless tobacco non-user [facility] Start: 08-05-2024 End: 04-18-2025 Alcoholic beverage intake Current drinker of alcohol (finding) [facility] Adolescent depressio n screening assessment 8 [facility] Start: 06-26-2019 Gender identity Identifies as female gender (finding) [facility] Start: 06-26-2019 Sexual orientation Choose not to disclose [facility] History of tobacco use Passive smoker [facility] How hard is it for y ou to pay for the very basics like food, housing, medical care, and heating Hard [facility] Goals Date Patient Goal Desired Activity /State Personal health goal Clinical Notes 06-06-2023 to 05-08-2025 Carmen Sims RN - 04/18/2025 12:19 PM MIKETChtania Perales MD - 04/18/2025 11:30 AM EDTPatient InstructionsAngeles Perales MD - 03/17/2025 10:00 AM EDTPatient Instructions Note Date & Type Note Facility 05-08-2025 Note HNO ID: [id number] Author: LUIS BAH MD Service: ? Author Type: Physician Type: Progress Notes Filed: 05/08/2025 14:32 Note Text: PATIENT NAME: Sean Maldonado CLINIC NO.: [id number] ATTENDING PHYSICIAN: Luis Bah MD DATE OF [...] BASOP , ABSBASO PATH: Surgical Pathology Order: [id number] Component 1 mo ago Case Report Surgical Pathology Report Case: [id number] Authorizing Provider: Karen Diamond MD Collected: 03/10/2025 0956 Ordering Location: [facility] Received: 03/10/2025 1049 - Endoscopy Pathologist: Abhinav Pierre MD Specimen: Lung, Right, RUL Final Diagn (more content not included)... [facility] 04-30-2025 Note Subjective Patient ID: Sean Maldonado is a 54 y.o. female who presents for Follow-up (Patient is here today for a 1 year. Patient states she hasn't been feeling well. Patient states mar 12 2025 she was diagnosed with stage 2 lung cancer), Coronary Artery Disease, Hyperlipidemia, and Hypertension. Just diagnosed with Stage II lung cancer, sees Riza Rosales in [place]. Now seeing doctors at [facility] for cancer care Does have chest pain and SOB with activity. Has pain L chest since 2017. Gets winded easily, stairs are difficult. With heart attack had jaw pain and arm pain, nausea, sweating Coronary Artery Disease Symptoms include chest pain, chest tightness and shortness of breath. Pertinent negatives include no dizziness. Risk factors include hyperlipidemia. Hyperlipidemia Associated symptoms include chest pain and shortness of breath. Hypertension Associated symptoms include chest pain and shortness of breath. Review of Systems Respiratory: Positive for chest tightness, shortness of breath and wheezing. Cardiovascular: Positive for chest pain. Gastrointestinal: Negative for blood in stool. Genitourinary: Negative for hematuria. Neurological: Negative for dizziness, syncope and light-headedness. Ocular migraines Objective Visit Vitals BP (!) 159/94 (BP Location: Right arm, Patient Position: Sitting) Pulse 95 Physical Exam Constitutional: Appearance: Normal appearance. She is normal weight. HENT: Head: Normocephalic and atraumatic. Cardiovascular: Rate and Rhythm: Normal rate and regular rhythm. Pulses: Carotid pulses are 2+ on the right side and 2+ on the left side. Radial pulses are 2+ on the right side and 2+ on the left side. Popliteal pulses are 2+ on the right side and 2+ on the left side. Heart sounds: Normal heart sounds. Heart sounds not distant. No murmur heard. No friction rub. No gallop. Pulmonary: Effort: Pulmonary effort is normal. No respiratory distress. Breath sounds: Normal breath sounds. Abdominal: Palpations: Abdomen is soft. Musculoskeletal: Right lower leg: No edema. Left lower leg: No edema. Skin: General: Skin is warm and dry. Neurological: General: No focal deficit present. Mental Status: She is alert and oriented to person, place, and time. Mental status is at baseline. Psychiatric: Mood and Affect: Mood normal. Behavior: Behavior normal. Assessment/Plan Ms. 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 She also has SOB and chest pain with activity. Plan echo and nuclear stress test prior to thoracic surgery given symptoms of shortness of breath and exertional chest pain. Diagnosis Plan 1. Precordial pain 2. Primary hypertension 3. Shortness of breath Treadmill Stress Myocardial Perfusion Imaging Transthoracic echo (TTE) complete 4. Precordial chest pain Treadmill Stress Myocardial Perfusion Imaging Transthoracic echo (TTE) complete Orders Placed This Encounter Procedures Treadmill Stress Myocardial Perfusion Imaging Standing Status: Future Expected Date: 04/30/2025 Expiration Date: 04/30/2027 Enter patient weight in pounds: 57.2 Release to Patient: Immediately ECG 12 lead unit performed This back office order was created through the Back Office Visit Navigator section. Release to Patient: Immediately Transthoracic echo (TTE) complete Standing Status: Future Expected Date: 04/30/2025 Expiration Date: 04/30/2027 Release to Patient: Immediately No results found for this or any previous visit (from the past 36 hours). Follow up in about 4 weeks (around 2025) for Recheck. [facility] 04-28-2025 Note HNO ID: [id number] Author: DANIKA SAENZ LSW Service: ? Author Type: Topper Press Operator Type: Progress Notes Filed: 04/29/2025 10:15 Note Text: Social Work Problem Referral Note INFORMATION/REFERRAL : Sean Maldonado 54 year old female was referred by LACHELLE Cosby to [facility] Social Work for the following reason(s): additional support and financial assistance - meals, parking, etc. PERSONS INTERVIEWED: patient INTERVENTION: Information AND Referral Service Co-ordination Affect/Mood: The patient is noted as anxious, distressed, being sad, tearful, and expressing worry IDENTIFIED PROBLEMS/NEEDS: Financial Intervention/Referral to be provided:Information for community resources/agencies IMPRESSION/PLAN: Referral received to meet with Patient to assess for psychosocial needs. Patient appeared to be distressed and overwhelmed. SW provided active listening and validation to the feelings expressed. Patient does not have a social support system. Patient mentioned that she has 20 cats and she is concerned about her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 16.1 (H) 11.7 - 15.5 g/dL Hematocrit 46.4 35 - 47 % MCV 96 80 - 100 fL MCH 33.4 27 - 34 pg MCHC 34.6 32 - 36 g/dL RDW 13.6 11.5 - 15 % Platelet Count 342 150 - 450 X10E9/L MPV 8.7 7 - 12 fL Neutrophils % 76.0 % Lymphocytes % 17.3 % Monocytes % 6.1 % Eosinophils % 0.1 % Basophils % 0.5 % Neutrophils Absolute (A) 7.2 (H) 1.5 - 6.6 10*3/uL Lymphocytes Absolute 1.6 1.0 - 3.5 10*3/uL Monocytes Absolute 0.6 0.0 - 0.9 10*3/uL Eosinophils Absolute 0.0 0.0 - 0.4 10*3/uL Basophils Absolute 0.0 0.0 - 0.2 10*3/uL Differential Type AUTOMATED DIFFERENTIAL Comprehensive metabolic panel Collection Time: 03/06/25 12:27 PM Result Value Ref Range SODIUM 136 134 - 146 mmol/L POTASSIUM 4.4 3.5 - 5.0 mmol/L CHLORIDE 96 (L) 98 - 109 mmol/L CARBON DIOXIDE 29 22 - 32 mmol/L ANION GAP 11 5 - 15 mmol/L BLOOD UREA NITROGEN 9 5 - 23 mg/dL CREATININE 0.77 0.40 - 1.00 mg/dL GLUCOSE 148 (H) 65 - 99 mg/dL CALCIUM 10.4 8.5 - 10.5 mg/dL TOTAL PROTEIN 7.6 6.0 - 8.0 g/dL ALBUMIN 5.2 3.2 - 5.3 g/dL ALKALINE PHOSPHATASE 86 39 - 130 U/L AST 23 <=41 U/L ALT 21 <=31 U/L BILIRUBIN,TOTAL 0.5 0.3 - 1.2 mg/dL EGFR Non-Race Dependent >90 >=60 ml/min/1.73sq.m Protime-INR Collection Time: 03/06/25 12:27 PM Result Value Ref Range PROTIME 10.5 9.8 - 13.2 sec INR 0.9 0.9 - 1.2 Immunoglobulins Collection Time: 03/06/25 12:27 PM Result Value Ref Range IGA 185 68 - 378 mg/dL IGG 856 635 - 1,741 mg/dL IGM 227 45 - 281 mg/dL Respiratory allergy panel Collection Time: 03/06/25 12:27 PM Result Value Ref Range DERMATOPH PTERONYSS <0.10 <0.10 kU/L DERMATOPH FARINAE <0.10 <0.10 kU/L CAT DANDER <0.10 <0.10 kU/L DOG DANDER <0.10 <0.10 kU/L BERMUDA GRASS <0.10 <0.10 kU/L JESSE <0.10 <0.10 kU/L COCKROACH <0.10 <0.10 kU/L IGE 14 <=165 IU/mL PENICILLIUM CHRYSOGN <0.10 <0.10 kU/L CLADOSPORIUM HERB <0.10 <0.10 kU/L ASPERGILLUS FUMIGATUS <0.10 <0.10 kU/L ALTERNARIA ALTERNATA <0.10 <0.10 kU/L WALNUT TREE POLLEN <0.10 <0.10 kU/L MAPLE LEAF SYCAMORE <0.10 <0.10 kU/L COTTONWOOD <0.10 <0.10 kU/L WHITE ADIS <0.10 <0.10 kU/L BOX ELDER <0.10 <0.10 kU/L PECAN HICKORY TREE <0.10 <0.10 kU/L COMMON SILVER BIRCH <0.10 <0.10 kU/L MOUNTAIN JUNIPER <0.10 <0.10 kU/L MULBERRY TREE <0.10 <0.10 kU/L OAK <0.10 <0.10 kU/L ELM <0.10 <0.10 kU/L COMMON RAGWEED <0.10 <0.10 kU/L SALTWORT SHELLEY THISTLE <0.10 <0.10 kU/L COMMON PIGWEED <0.10 <0.10 kU/L ROUGH MARSHELDER <0.10 <0.10 kU/L SHEEP SORREL <0.10 <0.10 kU/L NETTLE <0.10 <0.10 kU/L MEADOW GRASS [place] TANA <0.10 <0.10 kU/L GOOSEFOOT HARVEY QTR <0.10 <0.10 kU/L COCKLEBUR <0.10 <0.10 kU/L MUGWORT <0.10 <0.10 kU/L JENN GRASS <0.10 <0.10 kU/L MOUSE URINE PROTEINS <0.10 <0.10 kU/L APTT Collection Time: 03/06/25 12:27 PM Result Value Ref Range APTT 28 26 - 37 sec Body Fluid Cell Count Collection Time: 03/10/25 9:51 AM Result Value Ref Range Fluid color Colorless Fluid clarity Clear Fluid RBC Count 14 /uL Nucleated Cell Count 39 /uL Fungal culture includes fungal smear Collection Time: 03/10/25 9:51 AM Specimen: Lung, Right; Bronchoalveolar Lavage Result Value Ref Range CULTURE RESULTS Culture in progress FUNGAL SMEAR No fungal elements seen FUNGAL SMEAR On Concentrated Smear Lower resp/sputum culture inc gram stain: Patient acquired Collection Time: 03/10/25 9:51 AM Specimen: Lung, Right; Bronchoalveolar Lavage Result Value Ref Range CULTURE RESULTS Moderate Enterobacter cloacae complex (A) GRAM STAIN 0 White Blood Cells/LPF GRAM STAIN 1 to 9 Squamous Epithelial Cells/LPF GRAM STAIN 0 Ciliated Epithelial Cells/LPF GRAM STAIN No organisms seen Susceptibility Enterobacter cloacae complex - (no method available) PIPERACIL/TAZOBACTAM <=4.0 Susceptible Cefazolin (non-urinary) >=32.0 Resistant Cefazolin (urinary) >=32.0 Resistant Cefepime <=0.12 Susceptible Gentamicin <=1.0 Susceptible Ciprofloxacin <=0.06 Susceptible Levofloxacin <=0.12 Susceptible AFB culture concentrated includes AFB smear Collection Time: 03/10/25 9:51 AM Specimen: Lung, Right; Bronchoalveolar Lavage Result Value Ref Range CULTURE RESULTS ACID FAST CULTURE IN PROGRESS AFB SMEAR No Acid Fast Bacili (Concentrated Smear) Cytology non-gynecologic Collection Time: 03/10/25 9:51 AM Result Value Ref Range Case Report Medical Cytology Report Case: [id number] Authorizing Provider: Karen Diamond MD Collected: 03/10/2025 0951 Ordering Location: [facility] Received: 03/10/2025 1048 - Endoscopy Pathologist: Abhinav Pierre MD Specimens: 1) - Lung, Right, Right upper lobe, BAL 2) - Lymph Node, Right hilar lymph node (R10), FNA Final Diagnosis 1. Lung, right upper lobe, BAL: Positive for malignancy, squamous cell carcinoma (see comment). 2. Right hilar lymph node (R10), FNA: Positive for malignancy, squamous cell carcinoma (see comment). Comment This case has been reviewed in intradepartmental consultation with one of the pathologist who concurs with the diagnoses. See also case #[id number] of right upper lobe biopsy. Intraoperative Consultation 2. Right hilar lymph node (R10), fine needle aspirate: Pass 1: Highly atypical cells, suspicious for neoplasm. Pass 2-3: Atypical. Pass 4: Atypical cells, suspicious for neoplasm. Dr. Pierre Interpretation provided at [facility], [address] [place] [address]. Gross Description Received was 20ml of cloudy colorless fluid unfixed, labeled as Greve, lung, right, BAL . CytoLyt added in lab. Specimen placed in formalin at 13:00 and had a total fixation time of 12 hours. Prepared in Endoscopy were 8 slides (4SF, 4DQ). Also received was a needle rinse in CytoLyt for cellblock. Needle rinse obtained at 10:04 and placed in formalin at 13:00 with a total formalin fixation time of 12 hours. Embedded Images Reflexed Body Fluid Cell Count Differential Collection Time: 03/10/25 9:51 AM Result Value Ref Range Neutrophils, Fluid 76 % Lymphocyte, Fluid 5 % Bay/Macro, Fluid 19 % Total Cells Counted 100 % Surgical Pathology Collection Time: 03/10/25 9:56 AM Result Value Ref Range Case Report Surgical Pathology Report Case: [id number] Authorizing Provider: Karen Diamond MD Collected: 03/10/2025 0956 Ordering Location: [facility] Received: 03/10/2025 1049 - Endoscopy Pathologist: Abhinav Pierre MD Specimen: Lung, Right, RUL Final Diagnosis 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 Comment This case has been reviewed in intradepartmental consultation with one other pathologist who concurs with the diagnosis. See also case #[id number] of right upper lobe BAL and right hilar lymph node FNA. Gross Description Received in formalin labeled GREVE, RUL are multiple mckinney-schmid, focally hemorrhagic, delicate tissue bits 0.7 x 0.3 x 0.1 cm in aggregate. The specimen is filtered and submitted entirely in one cassette. 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 Await for PET and MRI of brain to complete staging. Patient wants to try holistic method first. Pd-l1 on Case: [id number] (keytruda) F/u in early 04/2025 Thank you. Angeles Perales MD Please note that portions of this note were generated using voice recognition M*Modal dictation software. Although every effort was made to ensure the accuracy of this automated package dyeing machine operator, some errors in package dyeing machine operator may have occurred. CC: Patient Care Team: Cindy Perez MD as PCP - General (Internal Medicine) AUBREE Fernandez as Nurse Practitioner (Obstetrics & Gynecology) Marvin Erazo MD as Referring Physician (Nephrology) PCP:CINDY PEREZ Referring MD: Cidny Perez MD documented in this encounter [facility] 03-17-2025 Instructions Angeles Perales MD - 03/17/2025 10:00 AM EDT Pd-l1 on Case: [id number] (keytruda) F/u in early 04/2025 documented in this encounter [facility] 03-10-2025 Note CULTURE RESULTS ACID FAST CULTURE IN PROGRESS AFB SMEAR No Acid Fast Bacili (Concentrated Smear) [facility] Comment on above: Order Comment: Pre-o p diagnosis:Pulmonary nodule Performed By: #### P INR #### [facility] [address] [place] [address] VIR 03-07-2025 Instructions Formatting of th is note might be different from the original. Your surgery/procedure is scheduled at [facility] on 03/10/2025 at 10 am Arrival Time 8 am [facility] Address: [address] [place] [address]. [place], [place] [address] Park in [address] Parking lot located on [facility]. Report to the Entrance B. Check in at the information desk. The waiting room is located on the second floor. If you have any questions prior to surgery, please call Pre-Admission Clinic at [phone] between 7:30 am and 4:30 pm Monday through Monday. If you have questions the morning of surgery, please call the Pre-op Department at [phone]. Notify your SURGEON if you develop any illness such as a cold, cough, fever, sore throat, vomiting or are hospitalized between now and your surgery. Medication Instructions (Do not stop your medications without consulting the prescribing physician). Take the following medications the morning of surgery with a sip of water: none Diabetic or Weight loss medications: HOLD n/a LAST DOSE n/a Take inhalers as prescribed the morning of surgery. Due to the risk associated with these medications. If these medications are not held per instruction below, your surgery is at an increased risk for cancellation. SGLT2 Medications- Hold 3 days prior to surgery: Jardiance, Empagliflozin, Farxiga, Dapagliflozin, Invokana, Canagliflozin, Trijardy, Synjardy GLP-1 Medications (Injection or Pill)- If taken daily hold day of surgery. If taken weekly, hold 1 week prior to surgery: Adlyxin, Byetta, Bydureon, Ozempic, Rybelsus,Trulicity, Victoza, Wegovy, Lixisenatide, Exenatide, Semaglutide, Dulaglutide, Liraglutide GIP/GLP-1(Injection or Pill)- If taken daily hold day of surgery. If taken weekly, hold 1 week prior to surgery: Chuyita . Blood thinners: Please contact your prescribing physician regarding a stop/hold date for these medications. Medications such as Coumadin, Heparin, Aspirin, Plavix, Eliquis, Pradaxa Diabetics: If you take insulin, contact your prescribing doctor for instructions on how to manage this the night before and the morning of surgery. Non-steriodal Anti-Inflammatory Drugs (NSAIDS)- Hold 3 days prior to surgery unless otherwise directed by your surgeon. Vitamins/Herbal Products: You may continue to take your prescribed vitamins such as potassium, iron, vitamin B, vitamin C, or multivitamin unless specifically instructed by your surgeon to hold. STOP taking all herbal products/teas one week prior to your surgery. Marijuana: Stop marijuana 72 hours prior to surgery, stop CBD oil 48 hours prior to surgery. If you have been given bowel prep instructions by your surgeon, please call the surgeon's office with any questions about these instructions. What do I do the day of Surgery? Age 2 through adult - Stop all solids by midnight, You may have clear liquids up to 2 hours before surgery, unless otherwise instructed by your surgeon. Clear liquids are: water, sports drinks such as Gatorade or G2, or apple juice. You may NOT have: tube feedings, dairy products, alcoholic beverages, orange juice, or any liquids with solids or pulp in it. If applicable, shower again with CHG soap the morning of your surgery. In order to help prevent infection post-operatively, you may be asked to use a CHG mouthwash when you arrive to the Pre-op area. Your nurse will provide instruction the morning of. What do I need to do to prepare for surgery? If you will be going home the same day as your surgery, arrange for an adult over [address] Riding in a bus or taxi by yourself is not permitted. You should not smoke or drink alcohol 24 hours before your surgery. Alcohol thins the blood and may cause bleeding problems during surgery. Smoking increases the risk of breathing problems after surgery. Do not use lotions, creams, powders, perfume, make up, cologne or after-shaves day of surgery. Remove ALL jewelry including wedding rings, body piercings (including dermal piercing's, hair extensions that contain metal, nail belarusian, make-up, and contact lens. You may brush your teeth the morning of surgery, but do not swallow the water. Wear your dentures and partial plates to the hospital (no adhesive). Shower the night before your procedure. If applicable, use the CHG (chlorhexidine gluconate) soap or wipes. Place clean linens on your bed after showering and put on freshly laundered nightclothes. Do not allow pets to sleep in your bed What should I bring to the hospital? Eyeglass or contact lens case If you will be spending the night, please bring personal care items and leave them in the car until you are taken to your room after surgery. Leave ALL valuables at home. If any of these instructions conflict with those you received from the surgeon, please seek clarification from your surgeon's office. DEEP BREATHING EXERCISES This exercise helps promote good air exchange and helps to prevent pneumonia after surgery. Breathe in slowly and deeply through the nose. Hold your breath for a few seconds and then exhale slowly through the mouth. Repeat this three times and then cough.Coughing helps to clear your lungs. If you have had a surgery with an incision into your abdomen or chest, press gently against your incision with a pillow or a folded blanket when you cough. Please be aware - it may not be ramírez to cough following some types of surgeries involving the eyes, ears, sinuses and throat. Always follow your doctor's instructions. LEG EXERCISE These exercises help promote good circulation and help to prevent blood clots after surgery. Point your toes to the ceiling and then point them to the wall. Do this slowly about 15-20 times. You may also move your feet in circles. Do the exercise that is most comfortable for you. If you have had surgery involving your shoulder or arm, we recommend you move your fingers. PRACTICING We ask that you begin practicing these exercises before your surgery. After surgery try to do both exercises at least every 2 hours during the day and early evening. Surgical Site Infection Prevention What is a Surgical Site Infection (SSI)? Infection can happen to the area of the body where surgery is done. This is called a surgical site infection (SSI). A SSI does not happen very often. What are some of the things that hospitals are doing to prevent SSIs? Soap and water or alcohol hand rub are used before and after caring for each patient. Special soap is used to clean surgery workers hands and arms just before the surgery. Masks, gowns, gloves and hair covers are worn during the surgery to keep the area clean. Hair in the surgery area may be removed with clippers (not razors). A special soap that kills germs is used to clean the skin at the surgery site. Antibiotics may be given before the surgery starts. What can you do to prevent SSIs? Before surgery: You may be asked to shower or bathe with a special soap that kills germs the night before and the day of surgery. Use the soap as you were told. Place clean sheets on your bed the night before surgery and do not allow your pets in your bed. If you smoke or vape, stop or cut down. This creates a stress response in your body that increases inflammation, constricts blood vessels and deprives your tissues of oxygen. After surgery, this stress response disrupts the travel of oxygen, nutrients, and blood to your surgical site, interfering with the wound healing process. It also decreases the ability of your cells to fight infection. Ask your doctor about ways to quit. If you have high blood sugars or diabetes please talk with your doctor about having healthy blood sugar levels to promote healing. Do not shave near where you will have surgery. Shaving can irritate the skin and make it easier to get and infection. After surgery: Be sure that the doctors and nurses clean their hands before and after touching you. Be sure your family and friends clean their hands before and after visiting you. Do not be afraid to remind them. Always wash your hands before touching your incisional area. * Care for your wound at home as told by your doctor or nurse * Call your doctor right away if you have fever, redness, increased pain, or drainage at the surgery site. Can SSIs be treated? Antibiotics are used to treat SSI. Some patients may need another surgery to treat the infection. The doctor will discuss treatment options with you. Further questions? Contact the doctor, nurse or the Infection Prevention and Control department if you have any questions. PATIENT RIGHTS AND RESPONSIBILITIES As a patient at [facility], you have the right to: Receive medical care and be informed of who is taking care of you Be treated with dignity and respect Have a family member/inside technical sales representative of choice and your physician notified of your admission Receive information and actively participate in decisions about your care and treatment Refuse care, treatment and services Decide who may provide your support and speak for you Access jew and spiritual services Participate in ethical issues and questions about your care Receive private and confidential care Have appropriate assessment and management of your pain Know guest visitation restrictions or limitations Have an advance directive Access protective services Consent or refuse to participate in research studies or production or recordings, films or other images Have resolution of your complaints Receive information of hospital charges and payment methods Patient/patient inside technical sales representative responsibilities are to: Provide information about health status to facilitate care, treatment and services Follow the treatment, plan, keep appointments and speak up when you do not understand the plan Respect the rights of other patients and healthcare personnel Follow organizational rules and regulations that support quality care and a safe environment Fulfill financial obligations as promptly as possible [facility] 03-07-2025 Miscellaneous Notes Your surgery/procedure is scheduled at [facility] on 03/10/2025 at 10 am Arrival Time 8 am [facility] Address: [address] [place] [address] in [address]ing [address] located on [facility]. Report to the Entrance B. Check in at the information desk. The waiting room is located on the second floor. If you have any questions prior to surgery, please call Pre-Admission Clinic at [phone] between 7:30 am and 4:30 pm Monday through Monday. If you have questions the morning of surgery, please call the Pre-op Department at [phone]. Notify your SURGEON if you develop any illness such as a cold, cough, fever, sore throat, vomiting or are hospitalized between now and your surgery. Medication Instructions (Do not stop your medications without consulting the prescribing physician). Take the following medications the morning of surgery with a sip of water: none Diabetic or Weight loss medications: HOLD n/a LAST DOSE n/a Take inhalers as prescribed the morning of surgery. Due to the risk associated with these medications. If these medications are not held per instruction below, your surgery is at an increased risk for cancellation. SGLT2 Medications- Hold 3 days prior to surgery: Jardiance, Empagliflozin, Farxiga, Dapagliflozin, Invokana, Canagliflozin, Trijardy, Synjardy GLP-1 Medications (Injection or Pill)- If taken daily hold day of surgery. If taken weekly, hold 1 week prior to surgery: Adlyxin, Byetta, Bydureon, Ozempic, Rybelsus,Trulicity, Victoza, Wegovy, Lixisenatide, Exenatide, Semaglutide, Dulaglutide, Liraglutide GIP/GLP-1(Injection or Pill)- If taken daily hold day of surgery. If taken weekly, hold 1 week prior to surgery: Chuyita . Blood thinners: Please contact your prescribing physician regarding a stop/hold date for these medications. Medications such as Coumadin, Heparin, Aspirin, Plavix, Eliquis, Pradaxa Diabetics: If you take insulin, contact your prescribing doctor for instructions on how to manage this the night before and the morning of surgery. Non-steriodal Anti-Inflammatory Drugs (NSAIDS)- Hold 3 days prior to surgery unless otherwise directed by your surgeon. Vitamins/Herbal Products: You may continue to take your prescribed vitamins such as potassium, iron, vitamin B, vitamin C, or multivitamin unless specifically instructed by your surgeon to hold. STOP taking all herbal products/teas one week prior to your surgery. Marijuana: Stop marijuana 72 hours prior to surgery, stop CBD oil 48 hours prior to surgery. If you have been given bowel prep instructions by your surgeon, please call the surgeon's office with any questions about these instructions. What do I do the day of Surgery? Age 2 through adult - Stop all solids by midnight, You may have clear liquids up to 2 hours before surgery, unless otherwise instructed by your surgeon. Clear liquids are: water, sports drinks such as Gatorade or G2, or apple juice. You may NOT have: tube feedings, dairy products, alcoholic beverages, orange juice, or any liquids with solids or pulp in it. If applicable, shower again with CHG soap the morning of your surgery. In order to help prevent infection post-operatively, you may be asked to use a CHG mouthwash when you arrive to the Pre-op area. Your nurse will provide instruction the morning of. What do I need to do to prepare for surgery? If you will be going home the same day as your surgery, arrange for an adult over [address] Riding in a bus or taxi by yourself is not permitted. You should not smoke or drink alcohol 24 hours before your surgery. Alcohol thins the blood and may cause bleeding problems during surgery. Smoking increases the risk of breathing problems after surgery. Do not use lotions, creams, powders, perfume, make up, cologne or after-shaves day of surgery. Remove ALL jewelry including wedding rings, body piercings (including dermal piercing's, hair extensions that contain metal, nail belarusian, make-up, and contact lens. You may brush your teeth the morning of surgery, but do not swallow the water. Wear your dentures and partial plates to the hospital (no adhesive). Shower the night before your procedure. If applicable, use the CHG (chlorhexidine gluconate) soap or wipes. Place clean linens on your bed after showering and put on freshly laundered nightclothes. Do not allow pets to sleep in your bed What should I bring to the hospital? Eyeglass or contact lens case If you will be spending the night, please bring personal care items and leave them in the car until you are taken to your room after surgery. Leave ALL valuables at home. If any of these instructions conflict with those you received from the surgeon, please seek clarification from your surgeon's office. DEEP BREATHING EXERCISES This exercise helps promote good air exchange and helps to prevent pneumonia after surgery. Breathe in slowly and deeply through the nose. Hold your breath for a few seconds and then exhale slowly through the mouth. Repeat this three times and then cough.Coughing helps to clear your lungs. If you have had a surgery with an incision into your abdomen or chest, press gently against your incision with a pillow or a folded blanket when you cough. Please be aware - it may not be ramírez to cough following some types of surgeries involving the eyes, ears, sinuses and throat. Always follow your doctor's instructions. LEG EXERCISE These exercises help promote good circulation and help to prevent blood clots after surgery. Point your toes to the ceiling and then point them to the wall. Do this slowly about 15-20 times. You may also move your feet in circles. Do the exercise that is most comfortable for you. If you have had surgery involving your shoulder or arm, we recommend you move your fingers. PRACTICING We ask that you begin practicing these exercises before your surgery. After surgery try to do both exercises at least every 2 hours during the day and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
--- NOTE | 2025-05-14 10:30 | CA_ITS ---
Patient Name: ROSE CASTELLON MR#: [id number] : 1970 Exam Date: 05/14/2025 Ordering Doctor: TRESA RENO ECHOCARDIOGRAM REPORT PROCEDURE: CA ECHO DOPPLER COMPLETE INDICATIONS: Chest pain, shortness of breath, h/o [place], lung cancer, smoker, COPD COMPARISON: None. DESCRIPTION: COMPLETE ECHOCARDIOGRAM Real-time transthoracic echocardiography with 2D, M-mode, spectral and color flow Doppler performed. QUALITY: Technical quality was good. LEFT VENTRICLE: Normal chamber size. Normal left ventricular wall thickness. There is akinesis of the basal to mid inferior, and inferoseptal segments. The basal inferolateral wall is hypokinetic. The remaining segments contract well. Global systolic function is at the lower limits of normal. Estimated LVEF is 50-55%. LV EF: Lower limits of normal left ventricular ejection fraction, (50-55%). DIASTOLIC: Normal diastolic function. ATRIAL SEPTUM: Visually appears intact. LEFT ATRIUM: Normal chamber size. RIGHT ATRIUM: Normal chamber size. RIGHT VENTRICLE: Normal chamber size. Normal right ventricular systolic function. TRICUSPID VALVE: Normal mobility and thickness. No stenosis with no regurgitation. Unable to assess right-sided pressures due to lack of measurable tricuspid regurgitation. MITRAL VALVE: Normal mobility and thickness. No evidence of mitral valve stenosis. There is no mitral annular calcification. Trivial mitral regurgitation. AORTIC VALVE: Normal trileaflet appearance. No visible sclerosis. Normal leaflet mobility. No evidence of aortic valve stenosis. Mild aortic regurgitation. AORTIC ROOT: Normal diameter and appearance, measuring 2.7 cm. Ascending aorta is normal in size, measuring 3.0 cm. PULMONIC VALVE: Normal thickness and mobility. Normal with No regurgitation. PERICARDIUM: No evidence of pericardial effusion. IVC: Collapses with inspiration. PLEURA: CONCLUSION: 1. Left ventricle is normal in size and exhibits akinesis of the basal to mid inferior and inferoseptal segments with hypokinesis of the basal inferolateral wall. Global systolic function is at the lower limits of normal. LVEF is estimated at 50 to 55%. 2. Normal right ventricular size and systolic function. 3. Normal diastolic function. 4. Mild aortic regurgitation. 5. Unable to assess right-sided pressures due to lack of measurable tricuspid regurgitation. Adult Echocardiography Procedure Report Left Ventricle LVEDD (3.7 - 5.6 cm): 4.82 cm LVESD (2.2 - 4.0 cm): 2.97 cm LVIVS thickness (0.6 - 1.2 cm): 0.94 cm LVPW thickness (0.5 - 1.0 cm): 1.07 cm e': 0.14 m/s E - e': 3.54 LVOT Max Gradient: 5.96 mm[Hg] LVOT Area (cm2): 1.22 m/s Peak Velocity (LVOT): 1.22 m/s Mean Velocity (LVOT): 0.79 m/s LVOT Diameter 1.94 cm Left Ventricular Ejection Fraction: 50-55 % Left Atrium LA Volume Index (2D A2C): 35.12 ml/m2 Left Atrium Systolic Dimension: 3.71 cm Mitral Valve MV E to A Ratio: 1.08 Mitral Valve A-Wave Peak Velocity: 0.45 m/s Mitral Valve E-Wave Peak Velocity: 0.49 m/s Right Ventricle Aorta AO Root Diam: 2.71 cm Ascending Ao Diam: 2.98 cm Aortic Valve AoV Area (Peak Gerson): 2.37 cm2, 2.37 cm2 AoV Area (VTI): 2.51 cm2, 2.51 cm2 Peak Velocity(Antegrade Flow): 1.52 m/s Peak Gradient(Antegrade Flow): 9.30 mm[Hg] Mean Velocity(Antegrade Flow): 0.93 m/s Mean Gradient(Antegrade Flow): 4.15 mm[Hg] Velocity Time Integral: 28.32 cm Tricuspid Valve Pulmonic Valve Peak Gradient: 5.47 mm[Hg], 4.39 mm[Hg] Right Atrium Dictated by: Jose Justice M.D. on 05/15/2025 at 09:11 Approved by: Jose Justice M.D. on 05/15/2025 at 09:18
--- NOTE | 2025-05-14 12:42 | PC.NURSE ---
Nursing Note Cardiac Stress Test Reviewed: Medication, allergies and patient history reviewed. Stress Test: [ ] Patient tolerated stress test well. [ ] Patient unable to tolerate walking on treadmill. Switched to Lexiscan stress test. [ ] No chest pain noted per patient [ ] Chest pain that resolved prior to leaving stress lab. [ ] No dyspnea noted. [ ] Dyspnea that resolved prior to leaving stress lab. [ ] Patient left stress lab asymptomatic and hemodynamically stable. [ ] Patient taken to the Emergency Room due to non-resolving symptoms following stress test. [ ] Patient achieved target heart rate. [ ] Patient unable to achieve target heart rate. [ ] Aminophylline administered as reversal agent to Lexiscan (Regadenoson). [ ] Nitro administered. Nursing Comments: Patient denies chest pain or discomfort when RN arrived in room. ST changes were noted on pre-test EKG, and PVC's noted. Prior to beginning the exam EKG from pre-test and the most recent from Apr 30 in the cardiology office was shown to Dr. Champion. ST changes were noted from the previous EKG as well. At this time it was determined by Dr. Champion to cancel the exercise portion of the stress test until the information could be evaluated by someone from [facility] cardiology. Patient was informed that the test may be rescheduled depending on the providers determination to a day in which [facility] Cardiology staff was on site. Lexiscan procedure also explained at this time. Patient reminded of S/S of a heart attack, that they may not be the same as her last NH and that she should report to the closest ER with any concerns. Blanca Thurman [facility] MA given EKG from today and updated on cancellation and she will reach out to Dr. Haywood and update the patient when a decision is made.
== END 2025-05-14 10:03 | disposition home or self-care (01) ==
LOC: NM 10:02
PROVIDERS: PCP Nurse Practitioner Family; Visit Provider Internal Medicine Cardiovascular Disease
DX: R07.2 Precordial pain (principal); R06.02 Shortness of breath
CPT/HCPCS: 78451; 93306; 93356; A9500

== ENCOUNTER 2025-05-21 15:10 | Outpatient (OUT) | payer OTHER, SELFPAY ==
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
--- OUTSIDE RECORDS SUMMARY | 2019-12-06 20:00 | XMS_ITS | CCD ---
Author Name Barbie BOWIE, Dr Bagley Address [address] [place] [address] [facility] Phone Care Team Providers Care Carpet Weaver Name Role Phone Frances Boswell NP Primary Care Provider Unav ailable Unavailable Chronic Care Management Unavaila ble Summary Purpose DataExchange Insurance Providers Payer name Policy type / Coverage type Covered libertarian ID Effective Begin Date Effective End Date BRENDAN ALFONSO [id number] Unknown Unknown Family history Father Diagnosis Age At Onset Alcoholism Unknown Mother Diagnosis Age At Onset Uterine cancer Unknown Substance abuse Unknown Grandmother Diagnosis Age At Onset Ovarian cancer Unknown Social History Social History Element Codes Description Effec tive Dates Tobacco history Unknown Current Smoker 12/05/[address]: 717192608 Never drinks alco hol 12/05/2019 Illegal/Recreational drug history Unknown Currently uses illegal/recreational drugs marijuana 12/05/2019 Allergies, Adverse Reactions, Alerts Substance Reaction Codes Entered Date Inactivated Date Status *No known drug allergies Unknown 12/05/2019 No I nactive Date Active Problems Condition Codes Effective Dates Condition St atus Vitamin D deficiency ICD-10: E55.9 ICD-9: 268.9 12/07/2019 Active Abnormal EKG ICD-10: R94.31 ICD-9: 794.31 12/05/2019 [...] Codes Instructions Start Date Stop Date Status Fill Instructions cholecalciferol (vitamin D3) 2,000 unit tablet RxNorm: 894179 1 Tablet(s) Oral every day 0 021 Inactive Marijuana (Legal) RxNorm: 0 Active Medication Administered No Medication Administered data Procedures Procedure Codes Date Hypertension CPT-4: HTN 12/05/2019 Electrocardiogram CPT-4: 91022 12/05/2019 Tobacco Assessment/Screening CPT-4: TCA Urinalysis, dip stick CPT-4: 63725 12/05/2019 Elder Abuse Screening CPT-4: EAS 12/05/2019 [place] Nas[place] Assessment CPT-4: DSWA 11/07 [id number] CPT-4: 64760 Unknown Reason For Visit No Reason For Visit data Plan of Care Planned Activity Notes Codes Status Date Patient Education: Patient Medication Summary Completed 12/07/2019 Appointment: Kevyn Valentin WPtel: [facility] [address] [id number] 12/05/2019 Referral: Pending Mental Health Services Referral Information Patient notified that it has been recommended that she be seen by Mental Health. Patient agreed to be seen and prefers to be seen close to home. Patient does not have any transportation issues. After trying multiple providers in the area, commercial real estate underwriter spoke with Caryl at [facility] who states that they are able to accept new patient's. Caryl asked that patient's referral and visit notes be faxed to [phone]. Warehouse Handler faxed over requested documents. Patient to call to schedule an appointment. Patient's referral confirmation letter mailed to her home address. Processed Referral: Pending Cardiology Referral Information Patient requesting to be seen by Cardiology. Patient denies any concerns with transportation, and prefers to schedule her own appointment. Warehouse Handler faxed over the patient's referral, most recent clinical notes, most recent echo and most recent EKG to F: . Patient to call to schedule her appointment. Appointment confirmation letter mailed to the patient's home address. CCDA completed. Initiated Referral: Pending Referral Source Referral Request CCDA Referral: Pending Nephrology Referral Information Patient requesting to be seen by a Practicing Md Anesthesiologist. Patient agreed to be seen and does not have a preferred provider. Patient denies any concerns with transportation. Warehouse Handler placed a call out to [facility] office at and confirmed that their office is able to accept new patients. Warehouse Handler faxed over the patient's referral, clinical notes, [...] prefers a provider close to her home. Warehouse Handler placed a call out to [facility] [employer] [facility] P: , but was told by Won that their office is not able to accept new patients. Warehouse Handler then called [facility] and spoke with Yusra who asked that the patient's referral, and clinical notes be faxed to . Warehouse Handler faxed over the requested documents. Patient to call to schedule her appointment. Appointment confirmation letter mailed to the patient's home address. CCDA completed. Processed Referral: Pending Cardiology Referral Information Patient notified that it has been advised that she be seen by a Car Repair Supervisor. Patient agreed to be seen and prefers to be seen by any provider that is close to her home. Patient denies any concerns with transportation, and prefers to schedule her own appointment. Warehouse Handler placed a call out to [facility] and spoke with Alvina P: who confirmed that their office is able to accept new patients and the patient's insurance. After confirming the providers fax number, commercial real estate underwriter faxed over the patient's referral, and most [...] but prefers to stay close to home. Warehouse Handler placed a call out to [facility] Obstetric[facility] Gyne[facility] and confirmed that they are able to accept new patient's and the patient's insurance. Patient does not have any transportation issues. Warehouse Handler faxed over patient's referral and clinical notes [...] and prefers to schedule her own appointment. Warehouse Handler placed a call out to [facility] and spoke with Guadalupe P: who confirmed that their office is able to accept new patients and the patient's insurance. After confirming the providers fax number, commercial real estate underwriter faxed over the patient's referral, xrays, and most recent clinical notes to F: . Patient to call to schedule her appointment. Appointment confirmation letter mailed to the patient's home address. CCDA completed. Processed Medical Equipment No Medical Equipment data Advance Directives No Advance Directive data
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
--- OUTSIDE RECORDS SUMMARY | 2023-09-25 00:11 | XMS_ITS | CCD ---
Author Name Bess Boswell NP Address [address] [place] [address] [address] [place] [address] Phone Organization [facility] Phone Care Team Providers Care Security Systems Administrator Name Role Phone Frances Boswell NP Primary Care Provider Unav ailable Unavailable Chronic Care Management Unavaila ble Summary Purpose DataExchange Insurance Providers Payer name Policy type / Coverage type Covered libertarian ID Effective Begin Date Effective End Date BRENDAN ALFONSO [id number] Unknown Unknown Family history Father Diagnosis Age At Onset Alcoholism Unknown Mother Diagnosis Age At Onset Uterine cancer Unknown Substance abuse Unknown Grandmother Diagnosis Age At Onset Ovarian cancer Unknown Social History Social History Element Codes Description Effec tive Dates Tobacco history Unknown Current Smoker 12/05/[address]: 577037035 Never drinks alco hol 12/05/2019 Illegal/Recreational drug history Unknown Currently uses illegal/recreational drugs marijuana 12/05/2019 Allergies, Adverse Reactions, Alerts Substance Reaction Codes Entered Date Inactivated Date Status *No known drug allergies Unknown 12/05/2019 No I nactive Date Active Problems Condition Codes Effective Dates Condition St atus Patient not seen ICD-10: UXZ.01 ICD-9: UXZ.01 12/31/2019 Active Vitamin D deficiency ICD-10: E55.9 ICD-9: [...] cholecalciferol (vitamin D3) 2,000 unit tablet RxNorm: 843658 1 Tablet(s) Oral every day 0 021 Inactive Marijuana (Legal) RxNorm: 0 Active Medication Administered No Medication Administered data Procedures Procedure Codes Date Hypertension CPT-4: HTN 12/05/2019 Electrocardiogram CPT-4: 63994 12/05/2019 Tobacco Assessment/Screening CPT-4: TCA Urinalysis, dip stick CPT-4: 48369 12/05/2019 Elder Abuse Screening CPT-4: EAS 12/05/2019 [place] Nasim Assessment CPT-4: DSWA 11/07 [id number] CPT-4: 48573 Unknown Reason For Visit No Reason For Visit data Encounters Encounter Performer Location Location Address Codes [place] ([id number]) No answer/Patient not seen Diagnosis: Patient not seen[ICD10: UXZ.01] Frances Spencer Office [address] [place] [address] CPT-4: 28190 12/31/2019 Plan of Care Planned Activity Notes Codes Status Date Visit Plan: patient refused to a nswer call because provider was 15 minutes late with call. Refused to reschedule PM to speak with patient. 12/31/2019 Patient Education: Patient Medication Summary Completed 12/31/2019 Patient Education: COPD Completed 0 12/31/2019 Appointment: Kevyn Valentin WPtel: [address] [facility] [address] [id number] 12/05/2019 Referral: Pending Mental Health Services Referral Information Patient notified that it has been recommended that she be seen by Mental Health. Patient agreed to be seen and prefers to be seen close to home. Patient does not have any transportation issues. After trying multiple providers in the area, field underwriter spoke with Caryl at [facility] who states that they are able to accept new patient's. Caryl asked that patient's referral and visit notes be faxed to [phone]. Business Planning Analyst faxed over requested documents. Patient to call to schedule an appointment. Patient's referral confirmation letter mailed to her home address. Processed Referral: Pending Cardiology Referral Information Patient requesting to be seen by Cardiology. Patient denies any concerns with transportation, and prefers to schedule her own appointment. Business Planning Analyst faxed over the patient's referral, most recent clinical notes, most recent echo and most recent EKG to F: . Patient to call to schedule her appointment. Appointment confirmation letter mailed to the patient's home address. CCDA completed. Initiated Referral: Pending Referral Source Referral Request CCDA Referral: Pending Nephrology Referral Information Patient requesting to be seen by a Physician Relations Representative. Patient agreed to be seen and does not have a preferred provider. Patient denies any concerns with transportation. Business Planning Analyst placed a call out to [facility] Neph[facility] office at and confirmed that their office is able to accept new patients. Business Planning Analyst faxed over the patient's referral, clinical notes, [...] prefers a provider close to her home. Business Planning Analyst placed a call out to [facility] P: , but was told by Won that their office is not able to accept new patients. Business Planning Analyst then called [facility] and [facility] and spoke with Yusra who asked that the patient's referral, and clinical notes be faxed to . Business Planning Analyst faxed over the requested documents. Patient to call to schedule her appointment. Appointment confirmation letter mailed to the patient's home address. CCDA completed. Processed Referral: Pending Cardiology Referral Information Patient notified that it has been advised that she be seen by a Shuttle Preparation Supervisor. Patient agreed to be seen and prefers to be seen by any provider that is close to her home. Patient denies any concerns with transportation, and prefers to schedule her own appointment. Business Planning Analyst placed a call out to [facility] Cardiology and spoke with Alvina P: who confirmed that their office is able to accept new patients and the patient's insurance. After confirming the providers fax number, field underwriter faxed over the patient's referral, and [...] but prefers to stay close to home. Business Planning Analyst placed a call out to [facility] Obstetrics Gynecology Mikayla Enrique and confirmed that they are able to accept new patient's and the patient's insurance. Patient does not have any transportation issues. Business Planning Analyst faxed over patient's referral and clinical notes [...] and prefers to schedule her own appointment. Business Planning Analyst placed a call out to [facility] Orthopaedics and spoke with Guadalupe P: who confirmed that their office is able to accept new patients and the patient's insurance. After confirming the providers fax number, field underwriter faxed over the patient's referral, xrays, and most recent clinical notes to F: . Patient to call to schedule her appointment. Appointment confirmation letter mailed to the patient's home address. CCDA completed. Processed Instructions Comment Date . patient refused to answer call because provider was 15 minutes late with call. Refused to reschedule PM to speak with patient. 12/31/2019 Medical Equipment No Medical Equipment data Advance Directives No Advance Directive data
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
--- OUTSIDE RECORDS SUMMARY | 2023-09-25 00:13 | XMS_ITS | CCD ---
Author Name Bess Boswell NP Address [address] [place] [address] [address] [place] [address] Phone Organization [facility] Phone Care Team Providers Care Spanish Lecturer Name Role Phone Frances Boswell NP Primary Care Provider Unav ailable Unavailable Chronic Care Management Unavaila ble Summary Purpose DataExchange Insurance Providers Payer name Policy type / Coverage type Covered constitution party ID Effective Begin Date Effective End Date BRENDAN ALFONSO [id number] Unknown Unknown Family history Father Diagnosis Age At Onset Alcoholism Unknown Mother Diagnosis Age At Onset Uterine cancer Unknown Substance abuse Unknown Grandmother Diagnosis Age At Onset Ovarian cancer Unknown Social History Social History Element Codes Description Effec tive Dates Tobacco history Unknown Current Smoker 12/05/[address]: 076015611 Never drinks alco hol 12/05/2019 Illegal/Recreational drug history Unknown Currently uses illegal/recreational drugs marijuana 12/05/2019 Allergies, Adverse Reactions, Alerts Substance Reaction Codes Entered Date Inactivated Date Status *No known drug allergies Unknown 12/05/2019 No I nactive Date Active Problems Condition Codes Effective Dates Condition St atus (Z12.11-V76.51) Encounter fo r screening for malignant neoplasm of colon ICD-10: Z12.11 ICD-9: V76.51 12/05/2019 Active (Z12.31-V76.12) Encounter fo r screening mammogram for malignant neoplasm of breast ICD-10: Z12.31 ICD-9: V76.12 03/02/2020 Active Bipolar I disorder, most rec ent episode (or current) manic ICD-10: F31.10 ICD-9: 296.40 12/05/2019 Active Encounter for screening ICD-10: Z13.9 ICD-9: V82.9 04/21/2020 Active COPD (chronic obstructive pu lmonary disease) ICD-10: J44.9 ICD-9: 496 12/05/2019 Active (F17.210-305.1) Nicotine dep endence, cigarettes, uncomplicated ICD-10: F17.210 ICD-9: 305.1 03/02/2020 Active (Z12.4-V76.2) Encounter for screening for [...] cholecalciferol (vitamin D3) 2,000 unit tablet RxNorm: 217935 1 Tablet(s) Oral every day 0 021 Inactive Marijuana (Legal) RxNorm: 0 Active Medication Administered No Medication Administered data Results Observation Observation Code Item Item Code Result Date S ervice Location NO ORDERS HEMOCCULT NO ORDERS HEMOCCULT NO ORDERS FOBT 0.00 1 [facility] [address] [place] [place] [address] Procedures Procedure Codes Date Fall Risk Assessment SNOMED CT: 49223837 4 CPT-4: DFRA 04/21/2020 Tobacco Assessment/Screening CPT-4: TCA Functional Assessment CPT-4: DFA 03/02/2020 Hypertension CPT-4: HTN 12/05/2019 Electrocardiogram CPT-4: 58491 12/05/2019 Tobacco Assessment/Screening CPT-4: TCA Urinalysis, dip stick CPT-4: 86538 12/05/2019 Elder Abuse Screening CPT-4: EAS 12/05/2019 [place] Nasim Assessment CPT-4: DSWA 11/07 Fecal Occult Blood Test (FOBT) Screening CPT-4: G0328 Unknown Gynecology Referral SNOMED CT: 735565024 CPT-4: R14 Unknown V5W-Ohayvguesdwqszw CPT-4: 31992 Unknown Reason For Visit No Reason For Visit data Plan of Care Planned Activity Notes Codes Status Date Appointment: Frances Boswell WPtel: [address] [place] [address] [place] ETV 09/11/2020 Appointment: Frances Boswell WPtel: [address] [place] [address] [place] ETV 07/24/2020 Appointment: Frances Boswell WPtel: [address] [place] [address] [place] ETV 06/26/2020 Appointment: Frances Boswell WPtel: [address] [place] [address] [place] ETV 05/15/2020 Appointment: Frances Boswell WPtel: [address] [place] [address] [place] E410 04/21/2020 Appointment: Frances Boswell WPtel: [address] [place] [address] [place] E410 03/02/2020 Appointment: Frances Boswell WPtel: [address] [place] [address] [place] E410 12/31/2019 Appointment: Kevyn Valentin WPtel: [address] [facility] [address] [id number] N410 12/05/2019 Referral: Pending Mental Health Services Referral Information Patient notified that it has been recommended that she be seen by Mental Health. Patient agreed to be seen and prefers to be seen close to home. Patient does not have any transportation issues. After trying multiple providers in the area, radio news writer spoke with Caryl at [facility] who states that they are able to accept new patient's. Caryl asked that patient's referral and visit notes be faxed to [phone]. Ecotherapist faxed over requested documents. Patient to call to schedule an appointment. Patient's referral confirmation letter mailed to her home address. Processed Referral: Pending Cardiology Referral Information Patient requesting to be seen by Cardiology. Patient denies any concerns with transportation, and prefers to schedule her own appointment. Ecotherapist faxed over the patient's referral, most recent clinical notes, most recent echo and most recent EKG to F: . Patient to call to schedule her appointment. Appointment confirmation letter mailed to the patient's home address. CCDA completed. Initiated Referral: Pending Referral Source Referral Request CCDA Referral: Pending Nephrology Referral Information Patient requesting to be seen by a Test Pilot. Patient agreed to be seen and does not have a preferred provider. Patient denies any concerns with transportation. Ecotherapist placed a call out to [facility] office at and confirmed that their office is able to accept new patients. Ecotherapist faxed over the patient's referral, clinical notes, [...] prefers a provider close to her home. Ecotherap[facility]: , but was told by Won that their office is not able to accept new patients. Ecotherapist then called [facility] and [facility] and spoke with Yusra who asked that the patient's referral, and clinical notes be faxed to . Ecotherapist faxed over the requested documents. Patient to call to schedule her appointment. Appointment confirmation letter mailed to the patient's home address. CCDA completed. Processed Referral: Pending Cardiology Referral Information Patient notified that it has been advised that she be seen by a Entry Level Paralegal. Patient agreed to be seen and prefers to be seen by any provider that is close to her home. Patient denies any concerns with transportation, and prefers to schedule her own appointment. Ecotherapist placed a call out to [facility] and spoke with Alvina P: who confirmed that their office is able to accept new patients and the patient's insurance. After confirming the providers fax number, radio news writer faxed over the patient's referral, and [...] but prefers to stay close to home. Ecotherapist placed a call out to [facility] and confirmed that they are able to accept new patient's and the patient's insurance. Patient does not have any transportation issues. Ecotherapist faxed over patient's referral and clinical notes [...] and prefers to schedule her own appointment. Ecotherapist placed a call out to [facility]opa[facility] and spoke with Guadalupe P: who confirmed that their office is able to accept new patients and the patient's insurance. After confirming the providers fax number, radio news writer faxed over the patient's referral, xrays, and most recent clinical notes to F: . Patient to call to schedule her appointment. Appointment confirmation letter mailed to the patient's home address. CCDA completed. Processed Medical Equipment No Medical Equipment data Advance Directives No Advance Directive data
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
--- OUTSIDE RECORDS SUMMARY | 2023-09-25 00:13 | XMS_ITS | CCD ---
Author Name Bess Boswell NP Address [id number] [place] [address] [address] [place] [address] Phone Organization [facility] Phone Care Team Providers Care Director Of Clinical Education Name Role Phone Frances Boswell NP Primary Care Provider Unav ailable Unavailable Chronic Care Management Unavaila ble Summary Purpose DataExchange Insurance Providers Payer name Policy type / Coverage type Covered constitution party ID Effective Begin Date Effective End Date BRENDAN ALFONSO [id number] Unknown Unknown Family history Father Diagnosis Age At Onset Alcoholism Unknown Mother Diagnosis Age At Onset Uterine cancer Unknown Substance abuse Unknown Grandmother Diagnosis Age At Onset Ovarian cancer Unknown Social History Social History Element Codes Description Effec tive Dates Tobacco history Unknown Current Smoker 12/05/[address]: 918897552 Never drinks alco hol 12/05/2019 Illegal/Recreational drug [...] cholecalciferol (vitamin D3) 2,000 unit tablet RxNorm: 570039 1 Tablet(s) Oral every day 0 021 Inactive Marijuana (Legal) RxNorm: 0 Active Medication Administered No Medication Administered data Results Observation Observation Code Item Item Code Result Date Service Location Hemoccult Screening Immunoassay G0328 Fecal Occult Blood Test (FOBT) Screening 01605-0 Negative 09/29/19 21 [facility] [address] [place] [address] Procedures Procedure Codes Date Maltreatment Assessment 1. [...] did not want, or hurt you physically?/No, Score:/NO All questions 2-6. No plan required, re-evaluate annually or prn CPT-4: MTAUnknown 09/11/2020 Fall Risk Assessment SNOMED CT: 18182171 4 CPT-4: DFRA 04/21/2020 Tobacco Assessment/Screening CPT-4: TCA Functional Assessment CPT-4: DFA 03/02/2020 Hypertension CPT-4: HTN 12/05/2019 Electrocardiogram CPT-4: 30666 12/05/2019 Tobacco Assessment/Screening CPT-4: TCA Urinalysis, dip stick CPT-4: 23126 12/05/2019 Elder Abuse Screening CPT-4: EAS 12/05/2019 [place] Nasim Assessment CPT-4: DSWA 11/07 Fecal Occult Blood Test (FOBT) Screening CPT-4: G0328 Unknown Gynecology Referral SNOMED CT: 327128409 CPT-4: R14 Unknown [id number]-[id number] CPT-4: 63077 Unknown Reason For Visit Reason For Visit Effective Dates Notes COPD 09/11/2020 bipolar disorder 09/11/2020 Encounters Encounter Performer Location Location Address Codes [place] e (G9487) REMOTE E/M EST. PT 15MINS (G9487) Diagnosis: Bipolar I disorder, most recent episode (or current) manic[ICD10: F31.10] Diagnosis: (Z12.31-V76.12) Encounter for screening mammogram for malignant neoplasm of breast[ICD10: Z12.31] Diagnosis: (Z12.11-V76.51) Encounter for screening for malignant neoplasm of colon[ICD10: Z12.11] Diagnosis: Encounter for screening[ICD10: Z13.9] Frances Boswell [facility] [address] [place] [address] CPT-4: G9487 09/11/2020 Plan of Care Planned Activity Notes Codes Status Date Patient Education: Patient Medication Summary Completed 09/11/2020 Patient Education: COPD Completed 0 09/11/2020 Appointment: Frances Boswell WPtel: [address] [place] [address] [place] ETV 07/24/2020 Appointment: Frances Boswell WPtel: [address] [place] [address] [place] 06/26/2020 Appointment: Frances Boswell WPtel: [address] [place] [address] [place] ETV 05/15/2020 Appointment: Frances Boswell WPtel: [address] [place] [address] E410 04/21/2020 Appointment: Frances Boswell WPtel: [address] [place] [address] [place] E410 03/02/2020 Appointment: Frances Boswell WPtel: [address] [place] [address] [place] E410 12/31/2019 Appointment: Kevyn Valentin WPtel: [facility] b [id number] [place] N410 12/05/2019 Referral: Pending Mental Health Services Referral Information Patient notified that it has been recommended that she be seen by Mental Health. Patient agreed to be seen and prefers to be seen close to home. Patient does not have any transportation issues. After trying multiple providers in the area, keno writer spoke with Caryl at [facility] who states that they are able to accept new patient's. Caryl asked that patient's referral and visit notes be faxed to [phone]. Produce Inspector faxed over requested documents. Patient to call to schedule an appointment. Patient's referral confirmation letter mailed to her home address. Processed Referral: Pending Cardiology Referral Information Patient requesting to be seen by Cardiology. Patient denies any concerns with transportation, and prefers to schedule her own appointment. Produce Inspector faxed over the patient's referral, most recent clinical notes, most recent echo and most recent EKG to F: . Patient to call to schedule her appointment. Appointment confirmation letter mailed to the patient's home address. CCDA completed. Initiated Referral: Pending Referral Source Referral Request CCDA Referral: Pending Nephrology Referral Information Patient requesting to be seen by a Flight Service Specialist. Patient agreed to be seen and does not have a preferred provider. Patient denies any concerns with transportation. Produce Inspector placed a call out to [facility] at and confirmed that their office is able to accept new patients. Produce Inspector faxed over the patient's referral, clinical notes, [...] prefers a provider close to her home. Produce Inspector placed a call out to [facility] P: , but was told by Won that their office is not able to accept new patients. Produce Inspector then called [facility] and spoke with Yusra who asked that the patient's referral, and clinical notes be faxed to . Produce Inspector faxed over the requested documents. Patient to call to schedule her appointment. Appointment confirmation letter mailed to the patient's home address. CCDA completed. Processed Referral: Pending Cardiology Referral Information Patient notified that it has been advised that she be seen by a Petroleum Transport Driver. Patient agreed to be seen and prefers to be seen by any provider that is close to her home. Patient denies any concerns with transportation, and prefers to schedule her own appointment. Produce Inspector placed a call out to [facility] and spoke with Alvina P: who confirmed that their office is able to accept new patients and the patient's insurance. After confirming the providers fax number, keno writer faxed over the patient's referral, and [...] but prefers to stay close to home. Produce Inspector placed a call out to [facility] and confirmed that they are able to accept new patient's and the patient's insurance. Patient does not have any transportation issues. Produce Inspector faxed over patient's referral and clinical notes [...] and prefers to schedule her own appointment. Produce Inspector placed a call out to [facility] and spoke with Guadalpue P: who confirmed that their office is able to accept new patients and the patient's insurance. After confirming the providers fax number, keno writer faxed over the patient's referral, xrays, and most recent clinical notes to F: . Patient to call to schedule her appointment. Appointment confirmation letter mailed to the patient's home address. CCDA completed. Processed Medical Equipment No Medical Equipment data Advance Directives No Advance Directive data
--- OUTSIDE RECORDS SUMMARY | 2023-09-25 00:14 | XMS_ITS | CCD ---
Author Organization Unknown Care Team Providers Care Silverware Cleaner Name Role Phone Elbert BURTON, Frances Primary Care Provider Unav ailable Unavailable Chronic Care Management Unavaila ble Summary Purpose DataExchange Insurance Providers Payer name Policy type / Coverage type Covered constitution party ID Effective Begin Date Effective End Date BRENDAN [facility] [id number] Unknown Unknown Family history Father Diagnosis Age At Onset Alcoholism Unknown Mother Diagnosis Age At Onset Uterine cancer Unknown Substance abuse Unknown Grandmother Diagnosis Age At Onset Ovarian cancer Unknown Social History Social History Element Codes Description Effec tive Dates Marital status Unknown 12/16/2020 DNR Order/ Advanced Directive Unknown Full Code 12/16/2020 Tobacco history Unknown Current Smoker 12/05/[address]: 239129904 Never drinks alco hol 12/05/2019 Illegal/Recreational drug [...] findings ICD-10: Z00.01 ICD-9: V70.0 12/16/2020 Active (Z12.31-V76.12) Encounter fo r screening mammogram for malignant neoplasm of breast ICD-10: Z12.31 ICD-9: V76.12 03/02/2020 Active Bipolar I disorder, most rec ent episode (or current) manic ICD-10: F31.10 ICD-9: 296.40 12/05/2019 Active COPD (chronic obstructive pu lmonary disease) ICD-10: J44.9 ICD-9: 496 12/05/2019 Active Elevated blood pressure read ing in [...] Date Status Fill Instructions cholecalciferol (vitamin D3) 50 mcg (2,000 unit) tablet RxNorm: 167629 TAKE 1 TABLET BY MOUTH EVERY DAY 1 021 Inactive Daily Vitamin Formula tablet RxNorm: 1 Tablet(s) Oral every day 0 021 Inactive cholecalciferol (vitamin D3) 2,000 unit tablet RxNorm: 748454 1 Tablet(s) Oral every day 0 021 Inactive Marijuana (Legal) RxNorm: 0 Active Medication Administered No Medication Administered data Procedures Procedure Codes Date Annual Wellness Visit (Subsequent Visit) CPT-4: G0439 12/16/2020 Tobacco Assessment/Screening CPT-4: TCA 07/2021 Patient Health Questionnaire CPT-4: DPHQ 07/2021 Advanced Care Planning CPT-4: VACP Hypertension CPT-4: HTN 10/27/2020 Fall Risk Assessment SNOMED CT: 31026481 4 CPT-4: DFRA 04/21/2020 Tobacco Assessment/Screening CPT-4: TCA Functional Assessment CPT-4: DFA 03/02/2020 Hypertension CPT-4: HTN 12/05/2019 Electrocardiogram CPT-4: 40924 12/05/2019 Tobacco Assessment/Screening CPT-4: TCA Urinalysis, dip stick CPT-4: 80005 12/05/2019 Elder Abuse Screening CPT-4: EAS 12/05/2019 [place] Nasim Assessment CPT-4: DSWA 11/07 External Mammogram CPT-4: EMAM Unknown Fecal Occult Blood Test (FOBT) Screening CPT-4: G0328 Unknown Fecal Occult Blood Test (FOBT) Screening CPT-4: G0328 Unknown Gynecology Referral SNOMED CT: 034830584 CPT-4: R14 Unknown External Mammogram CPT-4: EMAM Unknown [id number] CPT-4: 60919 Unknown Reason For Visit No Reason For Visit data Plan of Care Planned Activity Notes Codes Status Date Referral: Pending Mental Health Services Referral Information Patient notified that it has been recommended that she be seen by Mental Health. Patient agreed to be seen and prefers to be seen close to home. Patient does not have any transportation issues. After trying multiple providers in the area, race and sports book writer spoke with Caryl at [facility] who states that they are able to accept new patient's. Caryl asked that patient's referral and visit notes be faxed to [phone]. Dust Collector faxed over requested documents. Patient to call to schedule an appointment. Patient's referral confirmation letter mailed to her home address. Processed Referral: Pending Cardiology Referral Information Patient requesting to be seen by Cardiology. Patient denies any concerns with transportation, and prefers to schedule her own appointment. Dust Collector faxed over the patient's referral, most recent clinical notes, most recent echo and most recent EKG to F: . Patient to call to schedule her appointment. Appointment confirmation letter mailed to the patient's home address. CCDA completed. Initiated Referral: Pending Referral Source Referral Request CCDA Referral: Pending Nephrology Referral Information Patient requesting to be seen by a Bariatric Surgeon. Patient agreed to be seen and does not have a preferred provider. Patient denies any concerns with transportation. Dust Collector placed a call out to [facility] office at and confirmed that their office is able to accept new patients. Dust Collector faxed over the patient's referral, clinical notes, [...] prefers a provider close to her home. Dust Collector placed a call out to [facility] P: , but was told by Won that their office is not able to accept new patients. Dust Collector then called [facility] and spoke with Yusra who asked that the patient's referral, and clinical notes be faxed to . Dust Collector faxed over the requested documents. Patient to call to schedule her appointment. Appointment confirmation letter mailed to the patient's home address. CCDA completed. Processed Referral: Pending Cardiology Referral Information Patient notified that it has been advised that she be seen by a Export Specialist. Patient agreed to be seen and prefers to be seen by any provider that is close to her home. Patient denies any concerns with transportation, and prefers to schedule her own appointment. Dust Collector placed a call out to [facility] and spoke with Alvina P: who confirmed that their office is able to accept new patients and the patient's insurance. After confirming the providers fax number, race and sports book writer faxed over the patient's referral, and [...] but prefers to stay close to home. Dust Collector placed a call out to [facility] and confirmed that they are able to accept new patient's and the patient's insurance. Patient does not have any transportation issues. Dust Collector faxed over patient's referral and clinical notes [...] and prefers to schedule her own appointment. Dust Collector placed a call out to [facility] and spoke with Guadalupe P: who confirmed that their office is able to accept new patients and the patient's insurance. After confirming the providers fax number, race and sports book writer faxed over the patient's referral, xrays, and most recent clinical notes to F: . Patient to call to schedule her appointment. Appointment confirmation letter mailed to the patient's home address. CCDA completed. Processed Medical Equipment No Medical Equipment data Advance Directives No Advance Directive data
--- OUTSIDE RECORDS SUMMARY | 2023-09-25 00:14 | XMS_ITS | CCD ---
Author Name Bess Boswell NP Address [id number] [place] [address] [address] [place] [address] Phone [facility] Phone Care Team Providers Care Claims Adjuster Crop Name Role Phone Frances Boswell NP Primary Care Provider Unav ailable Unavailable Chronic Care Management Unavaila ble Summary Purpose DataExchange Insurance Providers Payer name Policy type / Coverage type Covered constitution party ID Effective Begin Date Effective End Date BRENDAN ALFONSO [id number] Unknown Unknown Family history Father Diagnosis Age At Onset Alcoholism Unknown Mother Diagnosis Age At Onset Uterine cancer Unknown Substance abuse Unknown Grandmother Diagnosis Age At Onset Ovarian cancer Unknown Social History Social History Element Codes Description Effec tive Dates Marital status Unknown 12/16/2020 DNR Order/ Advanced Directive Unknown Full Code 12/16/2020 Tobacco history Unknown Current Smoker 12/05/[address]: 140929278 Never drinks alco hol 12/05/2019 Illegal/Recreational drug [...] cholecalciferol (vitamin D3) 2,000 unit tablet RxNorm: 694583 1 Tablet(s) Oral every day 0 021 Inactive Marijuana (Legal) RxNorm: 0 Active Medication Administered No Medication Administered data Procedures Procedure Codes Date Annual Wellness Visit (Subsequent Visit) CPT-4: G0439 12/16/2020 Tobacco Assessment/Screening CPT-4: TCA 07/2021 Patient Health Questionnaire CPT-4: DPHQ 07/2021 Advanced Care Planning CPT-4: VACP Annual Wellness Visit (Subse quent Visit) Tobacco Assessment/Current user of tobacco (Complete cessation counseling)/Cessation advice and 1-800-QUIT now number given, Tobacco Assessment/Current user of tobacco (Complete cessation counseling)/Motivational interviewing, Chronic Opioid Use History/Never used opioids, Cognitive Screening/Detection of cognitive impairment:/No, Depression Screening (PHQ2)/Over the past two weeks, have you felt little interest or pleasure in doing things?/0- Not at all, Depression Screening (PHQ2)/Over the past two weeks, have you felt down, depressed, or hopeless?/1- Several days, Depression Screening (PHQ2)/Score:/0-2= Negative for depression (Plan NOT REQUIRED), Hearing Loss Screening/Do you have trouble hearing the tv, radio or struggle to hear/understand conversations?/No, Health Risk Assessment/In general, would you say your health is?/Good, Health Risk Assessment/Do you get enough physical activity?/Yes, Health Risk Assessment/Do you eat three meals a day?/No, Health Risk Assessment/Current diet?/Solids, Health Risk Assessment/Do you feel that you receive the social and emotional support you need?/Yes, Instrumental Activities of Daily Living/IADLs - Patient needs direct assistance, cuing, or supervision, to perform the following safely:/*No assistance, cuing, or supervision needed, Activities of Daily Living/ADLs - Patient needs direct assistance, cuing, or supervision, to perform the following safely:/*No assistance, cuing, or supervision needed, Fall Risk Assessment/Two or more falls in the past year?/No, Fall Risk Assessment/Fall with injury in the past year?/No, Fall Risk Assessment/Plan options:/Monitor gait and balance PRN, no current action needed CPT-4: [id number] 021 Advanced Care Planning Time spent discussing advance directives and/or completing forms with the patient or caregiver:/16 minutes (minimum) - 30 minutes, Advance Directive Status:/Reviewed and updated as pertinent, see Hx tab CPT-4: VACPUnknown 12/16/2020 Patient Health Questionnaire Little interest or pleasure in doing things?/0 = Not at all, Feeling down, depressed or hopeless?/1 = Several days, Trouble falling or staying asleep, or sleeping too much?/0 = Not at all, Feeling tired or having little energy?/0 = Not at all, Poor appetite or overeating?/2 = More than half the days, Feeling bad about yourself or that you're [...] for depression- NO PLAN NEEDED CPT-4: DPHQUnknown 12/16/2020 Tobacco Assessment/Screening Tobacco Use/Current user of tobacco (Complete cessation counseling)/Cessation advice and [phone]-ABUUBCS number given, Tobacco Use/Current user of tobacco (Complete cessation counseling)/Motivational interviewing CPT-4: TCAUnknown 12/16/2020 Smoking and tobacco use cess ation counseling visit 3-10 minutes Tobacco counseling 3-10 minutes:/Patient is competent and alert, Plan:/Cessation advice and [phone] number given, Plan:/Motivational interviewing CPT-4: 71816Vwtqnej 12/17/19 21 Hypertension CPT-4: HTN 10/27/2020 Fall Risk Assessment SNOMED CT: 69278115 4 CPT-4: DFRA 04/21/2020 Tobacco Assessment/Screening CPT-4: TCA Functional Assessment CPT-4: DFA 03/02/2020 Hypertension CPT-4: HTN 12/05/2019 Electrocardiogram CPT-4: 13341 12/05/2019 Tobacco Assessment/Screening CPT-4: TCA Urinalysis, dip stick CPT-4: 86735 12/05/2019 Elder Abuse Screening CPT-4: EAS 12/05/2019 [place] Nasim Assessment CPT-4: DSWA 11/07 External Mammogram CPT-4: EMAM Unknown Fecal Occult Blood Test (FOBT) Screening CPT-4: G0328 Unknown Fecal Occult Blood Test (FOBT) Screening CPT-4: G0328 Unknown Gynecology Referral SNOMED CT: 769972159 CPT-4: R14 Unknown External Mammogram CPT-4: EMAM Unknown W0S-Feybtcsndtufaxu CPT-4: 32376 Unknown Vital Signs Date Vital 12/16/2020 Blood Pressure 1: 154/96 Code: 8480-6 BMI: 23.8 Code: 38897-3 Heart Rate 1: 97 bpm Height: 5'7 Code: 8302-2 Respiratory Rate: 18 bpm SpO2: 98% Temperature: 36.7 (C) / 98.1 (F) Weight: 152 lbs Code: 74654-5 Reason For Visit Reason For Visit Effective Dates Notes COPD 12/16/2020 bipolar disorder 12/16/2020 Interim health update 12/16/2020 Encounters Encounter Performer Location Location Address Codes Ton e HOME VISIT EST PATIENT Diagnosis: Elevated blood pressure reading in office without diagnosis of hypertension[ICD10 : R03.0] Diagnosis: Bipolar I disorder, most recent episode (or current) manic[ICD10: F31.10] Diagnosis: COPD (chronic obstructive pulmonary disease)[ICD10: J44.9] Diagnosis: (F17.210-305.1) Nicotine dependence, cigarettes, uncomplicated[ICD1 0: F17.210] Diagnosis: (Z00.01-V70.0) Encounter for general adult medical examination with abnormal findings[ICD10: Z00.01] Diagnosis: (Z12.31-V76.12) Encounter for screening mammogram for malignant neoplasm of breast[ICD10: Z12.31] Frances Boswell [facility] Office [address] [facility] [address] [place] [id number] CPT-4: 45877 12/16/2020 Plan of Care Planned Activity Notes Codes Status Date Visit Plan: R03.0-796.2 Elevated blood pressure reading in office with white coat syndrome, without diagnosis of hypertension note BP elevated this visit, routinely self monitors BP ranges this morning 132/80, advised to monitor BP at rest daily and log results reviewed DASH reports marijuana helpful for controlling anxiety J44.9 COPD (chronic obstructive pulmonary disease), Z72.0 Tobacco abuse, F12.90 Cannabis use without complication R05-786.2 Cough chest x-ray negative routine follow up with Dr. Hemalatha Avila, pulmonology-denies routine visits-encouraged to call to schedule appointment has inhalers ordered per pulmonolgy-doesn't routinely use OVN pulse ox ordered in February 2020, not completed due to copay I25.2 History of heart attack, R94.31 Abnormal [...] Posttraumatic stress disorder, F44.81 Dissociative identity disorder 12/16/2020 PHQ 9 Score 3 currently not on medication and no following with psychiatry would be interested in MH if provider would come to the home E55.9-268.9 Vitamin D deficiency continue supplementation encourage sunshine as tolerated F17.210-305.1 (F17.210-305.1) Nicotine dependence, cigarettes, uncomplicated 12/16/2020 Tobacco Assessment complete Currently smokes 2 ppd, not interested in smoking cessation, Discussed health risk associated with ongoing tobacco use encouraged to call 5-800-QUIT NOW if she ever considers quitting Z12.4-V76.2 (Z12.4-V76.2) Encounter for screening for malignant neoplasm of cervix routine follow up gynecology Z12.31-V76.12 (Z12.31-V76.12) Encounter for screening mammogram for malignant neoplasm of breast scheduled for 09/26/2020-didn't keep this appt, 10/27/2020 new referral sent -patient reports had mammogram in October-will request records Z12.11-V76.51 (Z12.11-V76.51) Encounter for screening for malignant neoplasm of colon 09/29/2020 negative Z13.9-V82.9 Encounter for screening 09/11/2020 Maltreatment assessment complete-patient denies any form of abuse or neglect Z00.01-V70.0 (Z00.01-V70.0) Encounter for general adult medical examination with abnormal findings 12/16/2020 AWV complete 12/16/2020 ACP reviewed wishes to remain full code 12/16/2020 Patient Education: Patient Medication Summary Completed 12/16/2020 Patient Education: COPD Completed 0 12/16/2020 Appointment: Frances Boswell WPtel: [address] [place] [address] [place] ETV 10/27/2020 Appointment: Megan Coello: [address] [place] [address] [id number] [place] MULT 10/08/2020 Appointment: Frances Boswell WPtel: [address] [place] [address] [place] E410 10/07/2020 Appointment: Frances Boswell WPtel: [address] [place] [address] [place] ETV 09/11/2020 Appointment: Frances Boswell WPtel: [address] [place] [address] [place] ETV 07/24/2020 Appointment: Frances Boswell WPtel: [address] [place] [address] [place] ETV 06/26/2020 Appointment: Frances Boswell WPtel: [address] [place] [address] [place] ETV 05/15/2020 Appointment: Frances Boswell WPtel: [address] [facility] [address] [facility] [place] E410 04/21/2020 Appointment: Frances Boswell WPtel: [address] [facility] [address] [facility] [place] E410 03/02/2020 Appointment: Frances Boswell WPtel: [address] [facility] [address] [facility] [place] E410 12/31/2019 Appointment: Kevyn Valentin WPtel: [address] [facility] [address] [place] [place] N410 12/05/2019 Referral: Pending Mental Health Services Referral Information Patient notified that it has been recommended that she be seen by Mental Health. Patient agreed to be seen and prefers to be seen close to home. Patient does not have any transportation issues. After trying multiple providers in the area, typewriter mechanic spoke with Caryl at [facility] who states that they are able to accept new patient's. Caryl asked that patient's referral and visit notes be faxed to [phone]. De Icer Installer faxed over requested documents. Patient to call to schedule an appointment. Patient's referral confirmation letter mailed to her home address. Processed Referral: Pending Cardiology Referral Information Patient requesting to be seen by Cardiology. Patient denies any concerns with transportation, and prefers to schedule her own appointment. De Icer Installer faxed over the patient's referral, most recent clinical notes, most recent echo and most recent EKG to F: . Patient to call to schedule her appointment. Appointment confirmation letter mailed to the patient's home address. CCDA completed. Initiated Referral: Pending Referral Source Referral Request CCDA Referral: Pending Nephrology Referral Information Patient requesting to be seen by a Installation Specialist. Patient agreed to be seen and does not have a preferred provider. Patient denies any concerns with transportation. De Icer Installer placed a call out to [facility] office at and confirmed that their office is able to accept new patients. De Icer Installer faxed over the patient's referral, clinical notes, [...] prefers a provider close to her home. De Icer Installer placed a call out to [facility] P: , but was told by Won that their office is not able to accept new patients. De Icer Installer then called [facility] and [facility] and spoke with Yusra who asked that the patient's referral, and clinical notes be faxed to . De Icer Installer faxed over the requested documents. Patient to call to schedule her appointment. Appointment confirmation letter mailed to the patient's home address. CCDA completed. Processed Referral: Pending Cardiology Referral Information Patient notified that it has been advised that she be seen by a Corporate Director Of Human Resources. Patient agreed to be seen and prefers to be seen by any provider that is close to her home. Patient denies any concerns with transportation, and prefers to schedule her own appointment. De Icer Installer placed a call out to [facility] and spoke with Alvina P: who confirmed that their office is able to accept new patients and the patient's insurance. After confirming the providers fax number, typewriter mechanic faxed over the patient's referral, and most [...] but prefers to stay close to home. De Icer Installer placed a call out to [facility] Gynecology Mikayla Enrique and confirmed that they are able to accept new patient's and the patient's insurance. Patient does not have any transportation issues. De Icer Installer faxed over patient's referral and clinical notes [...] and prefers to schedule her own appointment. De Icer Installer placed a call out to [facility] and spoke with Guadalupe P: who confirmed that their office is able to accept new patients and the patient's insurance. After confirming the providers fax number, typewriter mechanic faxed over the patient's referral, xrays, and most recent clinical notes to F: . Patient to call to schedule her appointment. Appointment confirmation letter mailed to the patient's home address. CCDA completed. Processed Instructions Comment Date Assessment and plan reviewed ; . R03.0-796.2 Elevated blood pressure reading in office with white coat syndrome, without diagnosis of hypertension note BP elevated this visit, routinely self monitors BP ranges this morning 132/80, advised to monitor BP at rest daily and log results reviewed DASH reports marijuana helpful for controlling anxiety J44.9 COPD (chronic obstructive pulmonary disease), Z72.0 Tobacco abuse, F12.90 Cannabis use without complication; R05-786.2 Cough chest x-ray negative routine follow up with Dr. Hemalatha Avila, pulmonology-denies routine visits-encouraged to call to schedule appointment has inhalers ordered per pulmonolgy-doesn't routinely use OVN pulse ox ordered in February 2020, not completed due to copay I25.2 History of heart attack, R94.31 Abnormal [...] Posttraumatic stress disorder, F44.81 Dissociative identity disorder 12/16/2020 PHQ 9 Score 3 currently not on medication and no following with psychiatry would be interested in MH if provider would come to the home E55.9-268.9 Vitamin D deficiency continue supplementation encourage sunshine as tolerated F17.210-305.1 (F17.210-305.1) Nicotine dependence, cigarettes, uncomplicated 12/16/2020 Tobacco Assessment complete Currently smokes 2 ppd, not interested in smoking cessation, Discussed health risk associated with ongoing tobacco use encouraged to call [phone]-QUIT NOW if she ever considers quitting Z12.4-V76.2 (Z12.4-V76.2) Encounter for screening for malignant neoplasm of cervix routine follow up gynecology Z12.31-V76.12 (Z12.31-V76.12) Encounter for screening mammogram for malignant neoplasm of breast scheduled for 09/26/2020-didn't keep this appt, 10/27/2020 new referral sent -patient reports had mammogram in October-will request records Z12.11-V76.51 (Z12.11-V76.51) Encounter for screening for malignant neoplasm of colon 09/29/2020 negative Z13.9-V82.9 Encounter for screening 09/11/2020 Maltreatment assessment complete-patient denies any form of abuse or neglect Z00.01-V70.0 (Z00.01-V70.0) Encounter for general adult medical examination with abnormal findings 12/16/2020 AWV complete 12/16/2020 ACP reviewed wishes to remain full code 12/16/2020 Medical Equipment No Medical Equipment data Advance Directives No Advance Directive data
--- OUTSIDE RECORDS SUMMARY | 2023-09-25 00:14 | XMS_ITS | CCD ---
Author Name Bess Boswell NP Address [address] [place] [address] [address] [place] [address] [facility] Phone Care Team Providers Care Child Welfare Worker Name Role Phone Frances Boswell NP Primary Care Provider Unav ailable Unavailable Chronic Care Management Unavaila ble Summary Purpose DataExchange Insurance Providers Payer name Policy type / Coverage type Covered democrat ID Effective Begin Date Effective End Date BRENDAN ALFONSO [id number] Unknown Unknown Family history Father Diagnosis Age At Onset Alcoholism Unknown Mother Diagnosis Age At Onset Uterine cancer Unknown Substance abuse Unknown Grandmother Diagnosis Age At Onset Ovarian cancer Unknown Social History Social History Element Codes Description Effec tive Dates Tobacco history Unknown Current Smoker 12/05/[address]: 554246932 Never drinks alco hol 12/05/2019 Illegal/Recreational drug [...] cholecalciferol (vitamin D3) 2,000 unit tablet RxNorm: 490188 1 Tablet(s) Oral every day 0 021 Inactive Marijuana (Legal) RxNorm: 0 Active Medication Administered No Medication Administered data Procedures Procedure Codes Date Hypertension CPT-4: HTN 10/27/2020 Hypertension Hypertension Follow Up Plan/Lifestyle modification including limit tobacco exposure, Hypertension Follow Up Plan/Lifestyle modification including reduce salt intake CPT-4: HTNUnknown 10/27/2020 Fall Risk Assessment SNOMED CT: 59152042 4 CPT-4: DFRA 04/21/2020 Tobacco Assessment/Screening CPT-4: TCA Functional Assessment CPT-4: DFA 03/02/2020 Hypertension CPT-4: HTN 12/05/2019 Electrocardiogram CPT-4: 74655 12/05/2019 Tobacco Assessment/Screening CPT-4: TCA Urinalysis, dip stick CPT-4: 59428 12/05/2019 Elder Abuse Screening CPT-4: EAS 12/05/2019 [place] Nasim Assessment CPT-4: DSWA 11/07 External Mammogram CPT-4: EMAM Unknown Fecal Occult Blood Test (FOBT) Screening CPT-4: G0328 Unknown Fecal Occult Blood Test (FOBT) Screening CPT-4: G0328 Unknown Gynecology Referral SNOMED CT: 097374012 CPT-4: R14 Unknown External Mammogram CPT-4: EMAM Unknown [id number]-[id number] CPT-4: 02996 Unknown Reason For Visit Reason For Visit Effective Dates Notes COPD 10/27/2020 bipolar disorder 10/27/2020 Encounters Encounter Performer Location Location Address Codes Ton e ([address]) (EST PT) PROBLEM FOCUSED TELEHEALTH VISIT Diagnosis: COPD (chronic obstructive pulmonary disease)[ICD10: J44.9] Diagnosis: Elevated blood pressure reading in office with white coat syndrome, without diagnosis of hypertension[ICD10 : R03.0] Diagnosis: (Z12.31-V76.12) Encounter for screening mammogram for malignant neoplasm of breast[ICD10: Z12.31] Frances [facility] Office [address] [place] [address] CPT-4: 58811 10/27/2020 Plan of Care Planned Activity Notes Codes Status Date Patient Education: Patient Medication Summary Completed 10/27/2020 Patient Education: COPD Completed 0 10/27/2020 Care Plan: External Mammogram Ordered 10/27/2020 Appointment: Megan Coello Judyparis: [address] [facility] [address] [id number] [place]ULT 10/08/2020 Appointment: Frances Boswell WPtel: [address] [place] [address] [place] E410 10/07/2020 Appointment: Frances Boswell WPtel: [address] [place] [address] [place] ETV 09/11/2020 Appointment: Frances Boswell WPtel: [address] [place] [address] [place] ETV 07/24/2020 Appointment: Frances Boswell WPtel: [address] [place] [address] [place] ETV 06/26/2020 Appointment: Frances Boswell WPtel: [address] [place] [address] [place] ETV 05/15/2020 Appointment: Frances Boswell WPtel: [address] [place] [address] E410 04/21/2020 Appointment: Frances Boswell WPtel: [address] [place] [address] [place] E410 03/02/2020 Appointment: Frances Boswell WPtel: [address] [place] [address] [place] E410 12/31/2019 Appointment: Kevyn Valentin WPtel: [facility] [facility] [address] [place] [place] N410 12/05/2019 Referral: Pending Mental Health Services Referral Information Patient notified that it has been recommended that she be seen by Mental Health. Patient agreed to be seen and prefers to be seen close to home. Patient does not have any transportation issues. After trying multiple providers in the area, grant writer spoke with Caryl at [facility] who states that they are able to accept new patient's. Caryl asked that patient's referral and visit notes be faxed to [phone]. Wire Strander faxed over requested documents. Patient to call to schedule an appointment. Patient's referral confirmation letter mailed to her home address. Processed Referral: Pending Cardiology Referral Information Patient requesting to be seen by Cardiology. Patient denies any concerns with transportation, and prefers to schedule her own appointment. Wire Strander faxed over the patient's referral, most recent clinical notes, most recent echo and most recent EKG to F: . Patient to call to schedule her appointment. Appointment confirmation letter mailed to the patient's home address. CCDA completed. Initiated Referral: Pending Referral Source Referral Request CCDA Referral: Pending Nephrology Referral Information Patient requesting to be seen by a Supervising Floorperson. Patient agreed to be seen and does not have a preferred provider. Patient denies any concerns with transportation. Wire Strander placed a call out to [facility] office at and confirmed that their office is able to accept new patients. Wire Strander faxed over the patient's referral, clinical notes, [...] prefers a provider close to her home. Wire Strander placed a call out to [facility] P: , but was told by Won that their office is not able to accept new patients. Wire Strander then called [facility] and [facility] and spoke with Yusra who asked that the patient's referral, and clinical notes be faxed to . Wire Strander faxed over the requested documents. Patient to call to schedule her appointment. Appointment confirmation letter mailed to the patient's home address. CCDA completed. Processed Referral: Pending Cardiology Referral Information Patient notified that it has been advised that she be seen by a Tutor. Patient agreed to be seen and prefers to be seen by any provider that is close to her home. Patient denies any concerns with transportation, and prefers to schedule her own appointment. Wire Strander placed a call out to [facility] and spoke with Alvina P: who confirmed that their office is able to accept new patients and the patient's insurance. After confirming the providers fax number, grant writer faxed over the patient's referral, and [...] but prefers to stay close to home. Wire Strander placed a call out to [facility] and confirmed that they are able to accept new patient's and the patient's insurance. Patient does not have any transportation issues. Wire Strander faxed over patient's referral and clinical notes [...] and prefers to schedule her own appointment. Wire Strander placed a call out to [facility] and spoke with Guadalupe P: who confirmed that their office is able to accept new patients and the patient's insurance. After confirming the providers fax number, grant writer faxed over the patient's referral, xrays, and most recent clinical notes to F: . Patient to call to schedule her appointment. Appointment confirmation letter mailed to the patient's home address. CCDA completed. Processed Medical Equipment No Medical Equipment data Advance Directives No Advance Directive data
--- OUTSIDE RECORDS SUMMARY | 2023-09-25 00:15 | XMS_ITS | CCD ---
Author Organization Unknown Care Team Providers Care Insulation Supervisor Name Role Phone Elbert BURTON, Frances Primary Care Provider Unav ailable Unavailable Chronic Care Management Unavaila ble Summary Purpose DataExchange Insurance Providers Payer name Policy type / Coverage type Covered democrat ID Effective Begin Date Effective End Date [facility] [id number] Unknown Unknown Family history Father Diagnosis Age [...] Current Smoker 12/05/[address]: 818468188 Never drinks alco hol 12/05/2019 Allergies, Adverse Reactions, Alerts Substance Reaction Codes Entered Date Inactivated Date Status *No known drug allergies Unknown 12/05/2019 No I nactive Date Active Problems Condition Codes Effective Dates Condition St atus Chest pain in adult ICD-10: R07.9 ICD-9: 786.50 01/22/2021 Active COPD (chronic obstructive pu lmonary disease) [...] manic ICD-10: F31.10 ICD-9: 296.40 12/05/2019 Active Elevated blood pressure read ing [...] ICD-10 : Z87.828 ICD-9: V15.59 12/05/2019 Active Posttraumatic stress disorder ICD-10: F4 3.10 ICD-9: 309.81 12/05/2019 Active Tobacco abuse ICD-10: Z72.0 ICD-9: 305.1 12/05/2019 Active Medications Medication Codes Instructions Start Date Stop Date Status Fill Instructions Daily Vitamin Formula tablet RxNorm: 1 Tablet(s) Oral every day 1 021 Inactive cholecalciferol (vitamin D3) 50 mcg (2,000 unit) tablet RxNorm: 901730 TAKE 1 TABLET BY MOUTH EVERY DAY 1 021 Inactive Daily Vitamin Formula tablet RxNorm: 1 Tablet(s) Oral every day 0 021 Inactive cholecalciferol (vitamin D3) 2,000 unit tablet RxNorm: 359689 1 Tablet(s) Oral every day 0 021 Inactive Marijuana (Legal) RxNorm: 0 Active Medication Administered No Medication Administered data Procedures Procedure Codes Date Annual Wellness Visit (Subsequent Visit) CPT-4: G0439 12/16/2020 Tobacco Assessment/Screening CPT-4: TCA 07/2021 Patient Health Questionnaire CPT-4: DPHQ 07/2021 Advanced Care Planning CPT-4: VACP Hypertension CPT-4: HTN 10/27/2020 Fall Risk Assessment SNOMED CT: 63660053 4 CPT-4: DFRA 04/21/2020 Tobacco Assessment/Screening CPT-4: TCA Functional Assessment CPT-4: DFA 03/02/2020 Hypertension CPT-4: HTN 12/05/2019 Electrocardiogram CPT-4: 18023 12/05/2019 Tobacco Assessment/Screening CPT-4: TCA Urinalysis, dip stick CPT-4: 28071 12/05/2019 Elder Abuse Screening CPT-4: EAS 12/05/2019 [place] Nasim Assessment CPT-4: DSWA 11/07 External Mammogram CPT-4: EMAM Unknown Fecal Occult Blood Test (FOBT) Screening CPT-4: G0328 Unknown Fecal Occult Blood Test (FOBT) Screening CPT-4: G0328 Unknown Gynecology Referral SNOMED CT: 523286512 CPT-4: R14 Unknown External Mammogram CPT-4: EMAM Unknown [id number]-[id number] CPT-4: 18813 Unknown Reason For Visit No Reason For [...] After trying multiple providers in the area, law writer spoke with Caryl at [facility] who states that they are able to accept new patient's. Caryl asked that patient's referral and visit notes be faxed to [phone]. Civil Design Specialist faxed over requested documents. Patient to call to schedule an appointment. Patient's referral confirmation letter mailed to her home address. Processed Referral: Pending Cardiology Referral Information Patient requesting to be seen by Cardiology. Patient denies any concerns with transportation, and prefers to schedule her own appointment. Civil Design Specialist faxed over the patient's referral, most recent clinical notes, most recent echo and most recent EKG to F: . Patient to call to schedule her appointment. Appointment confirmation letter mailed to the patient's home address. CCDA completed. Initiated Referral: Pending Referral Source Referral Request CCDA Referral: Pending Nephrology Referral Information Patient requesting to be seen by a Premium Auditor. Patient agreed to be seen and does not have a preferred provider. Patient denies any concerns with transportation. Civil Design Specialist placed a call out to [facility] Neph[facility] office at and confirmed that their office is able to accept new patients. Civil Design Specialist faxed over the patient's referral, clinical notes, [...] prefers a provider close to her home. Civil Design Specialist placed a call out to [facility] P: , but was told by Won that their office is not able to accept new patients. Civil Design Specialist then called [facility] and [facility] and spoke with Yusra who asked that the patient's referral, and clinical notes be faxed to . Civil Design Specialist faxed over the requested documents. Patient to call to schedule her appointment. Appointment confirmation letter mailed to the patient's home address. CCDA completed. Processed Referral: Pending Cardiology Referral Information Patient notified that it has been advised that she be seen by a Appeals Writer. Patient agreed to be seen and prefers to be seen by any provider that is close to her home. Patient denies any concerns with transportation, and prefers to schedule her own appointment. Civil Design Specialist placed a call out to [facility] Cardiology and spoke with Alvina P: who confirmed that their office is able to accept new patients and the patient's insurance. After confirming the providers fax number, law writer faxed over the patient's referral, and [...] but prefers to stay close to home. Civil Design Specialist placed a call out to [facility] Obstetric[facility] Gynecology [facility] and confirmed that they are able to accept new patient's and the patient's insurance. Patient does not have any transportation issues. Civil Design Specialist faxed over patient's referral and clinical notes [...] and prefers to schedule her own appointment. Civil Design Specialist placed a call out to [facility] Orthopaedics and spoke with Guadalupe P: who confirmed that their office is able to accept new patients and the patient's insurance. After confirming the providers fax number, law writer faxed over the patient's referral, xrays, and most recent clinical notes to F: . Patient to call to schedule her appointment. Appointment confirmation letter mailed to the patient's home address. CCDA completed. Processed Medical Equipment No Medical Equipment data Advance Directives No Advance Directive data
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
--- OUTSIDE RECORDS SUMMARY | 2023-09-25 00:17 | XMS_ITS | CCD ---
Author Name Bess Boswell NP Address [address] [place] [address] [address] [place] [address] Phone Organization [facility] Phone Care Team Providers Care Home Care Aide Name Role Phone Frances Boswell NP Primary Care Provider Unav ailable Unavailable Chronic Care Management Unavaila ble Summary Purpose DataExchange Insurance Providers Payer name Policy type / Coverage type Covered green party ID Effective Begin Date Effective End Date BRENDAN ALFONSO [id number] Unknown Unknown Family history Father Diagnosis Age [...] Current Smoker 12/05/[address]: 544227955 Never drinks alco hol 12/05/2019 Allergies, Adverse Reactions, Alerts Substance Reaction Codes Entered Date Inactivated Date Status *No known drug allergies Unknown 12/05/2019 No I nactive Date Active Problems Condition Codes Effective Dates Condition St atus Bipolar I disorder, most rec ent episode (or current) manic ICD-10: F31.10 ICD-9: 296.40 12/05/2019 Active (Z12.31-V76.12) Encounter fo r screening [...] D3) 50 mcg (2,000 unit) tablet RxNorm: 593523 TAKE 1 TABLET BY MOUTH EVERY DAY 1 021 Inactive Daily Vitamin Formula tablet RxNorm: 1 Tablet(s) Oral every day 0 021 Inactive cholecalciferol (vitamin D3) 2,000 unit tablet RxNorm: 967057 1 Tablet(s) Oral every day 0 021 Inactive Marijuana (Legal) RxNorm: 0 Active Medication Administered No Medication Administered data Procedures Procedure Codes Date Patient Health Questionnaire CPT-4: DPHQ 11/2020 Patient Health Questionnaire Little interest or pleasure in doing things?/0 = Not at all, Feeling down, depressed or hopeless?/2 = More than half the days, Trouble falling or staying asleep, or sleeping too much?/0 = Not at all, Feeling tired or having little energy?/0 = Not at all, Poor appetite or overeating?/0 = Not at [...] for depression- NO PLAN NEEDED CPT-4: DPHQUnknown 05/10/2021 Annual Wellness Visit (Subsequent Visit) CPT-4: G0439 12/16/2020 Tobacco Assessment/Screening CPT-4: TCA 07/2021 Patient Health Questionnaire CPT-4: DPHQ 07/2021 Advanced Care Planning CPT-4: VACP Hypertension CPT-4: HTN 10/27/2020 Fall Risk Assessment SNOMED CT: 62111903 4 CPT-4: DFRA 04/21/2020 Tobacco Assessment/Screening CPT-4: TCA Functional Assessment CPT-4: DFA 03/02/2020 Hypertension CPT-4: HTN 12/05/2019 Electrocardiogram CPT-4: 56903 12/05/2019 Tobacco Assessment/Screening CPT-4: TCA Urinalysis, dip stick CPT-4: 56804 12/05/2019 Elder Abuse Screening CPT-4: EAS 12/05/2019 [place] Nasim Assessment CPT-4: DSWA 11/07 External Mammogram CPT-4: EMAM Unknown Fecal Occult Blood Test (FOBT) Screening CPT-4: G0328 Unknown Fecal Occult Blood Test (FOBT) Screening CPT-4: G0328 Unknown Gynecology Referral SNOMED CT: 270755480 CPT-4: R14 Unknown External Mammogram CPT-4: EMAM Unknown [id number]-[id number] CPT-4: 42322 Unknown Vital Signs Date Vital 05/10/2021 BMI: 21.6 Code: 47986-9 Height: 5'7 Code : 8302-2 Weight: 138 lbs Code: 63394-8 Reason For Visit Reason For Visit Effective Dates Notes bipolar disorder 05/10/2021 Interim health update 05/10/2021 Encounters Encounter Performer Location Location Address Codes [place] ([id number]) (EST PT) DETAILED TELEHEALTH VISIT Diagnosis: Bipolar I disorder, most recent episode (or current) manic[ICD10: F31.10] Frances Spencer Office [id number] [place] [address] [place] [address] CPT-4: 26312 05/10/2021 Plan of Care Planned Activity Notes Codes Status Date Visit Plan: Visit via [facility] F 31.10 Bipolar I disorder, most recent episode manic, F40.10 Social phobia, F42.9 Obsessive-compulsive disorder, F43.10 Posttraumatic stress disorder, F44.81 Dissociative identity disorder tearful this visit, allowed to vent, difficult to discuss other health issues as she continually came back to talk about her daughter 05/10/2021 PHQ 9 Score 2 currently not on medication, reluctant to take medications due to high risk of side effects agreeable this visit to referral sent PREVENTATIVE F17.210-305.1 (F17.210-305.1) Nicotine dependence, cigarettes, uncomplicated 12/16/2020 [...] request records patient reports had Mammogram at [facility] which showed dense breast recomnmending 6 month follow up-will request records again this visit Z12.11-V76.51 (Z12.11-V76.51) Encounter for screening for malignant neoplasm of colon 09/29/2020 negative Z13.9-V82.9 Encounter for screening 09/11/2020 Maltreatment assessment complete-patient denies any form of abuse or neglect Z00.01-V70.0 (Z00.01-V70.0) Encounter for general adult medical examination with abnormal findings 12/16/2020 AWV complete 12/16/2020 ACP reviewed wishes to remain full code 05/10/2021 Patient Education: Patient Medication Summary Completed 05/10/2021 Appointment: Frances Boswell WPtel: [address] [place] [address] ETV 03/02/2021 Appointment: Naman Villarreal: [address] [place] [address] [place] RLOL 02/10/2021 Appointment: Frances Boswell WPtel: [id number] [place] [address] [place] E410 02/03/2021 Appointment: Fabiola Madsen: [id number] [place] ECHO 01/26/2021 Appointment: Frances Boswell WPtel: [address] [place] [address] [place] ETV 01/22/2021 Appointment: Frances Boswell WPtel: [address] [place] [address] [place] E410 12/16/2020 Appointment: Frances Boswell WPtel: [address] [place] [address] [place] ETV 10/27/2020 Appointment: Megan Coello: [address] [facility] [address] [id number] [facility]ULT 10/08/2020 Appointment: Frances Boswell WPtel: [address] [place] [address] E410 10/07/2020 Appointment: Frances Boswell WPtel: [address] [place] [address] [place] ETV 09/11/2020 Appointment: Frances Boswell WPtel: [address] [place] [address] [place] ETV 07/24/2020 Appointment: Frances Boswell WPtel: [address] [place] [address] [place] ETV 06/26/2020 Appointment: Frances Boswell WPtel: [address] [place] [address] [place] ETV 05/15/2020 Appointment: Frances Boswell WPtel: [address] [place] [address] [place] E410 04/21/2020 Appointment: Frances Boswell WPtel: [address] [facility] [address] [id number] [place] E410 03/02/2020 Appointment: Frances Boswell WPtel: [address] [facility] [address] [facility] [place] E410 12/31/2019 Appointment: MasoudgeenaKevyn villa WPtel: [address] [facility] [address] [id number] [place] N410 12/05/2019 Referral: Pending Mental Health Services Referral Information Patient notified that it has been recommended that she be seen by Mental Health. Patient agreed to be seen and prefers to be seen close to home. Patient does not have any transportation issues. After trying multiple providers in the area, personal lines underwriter spoke with Caryl at [facility] who states that they are able to accept new patient's. Caryl asked that patient's referral and visit notes be faxed to [phone]. Herpetology Teacher faxed over requested documents. Patient to call to schedule an appointment. Patient's referral confirmation letter mailed to her home address. Processed Referral: Pending Cardiology Referral Information Patient requesting to be seen by Cardiology. Patient denies any concerns with transportation, and prefers to schedule her own appointment. Herpetology Teacher faxed over the patient's referral, most recent clinical notes, most recent echo and most recent EKG to F: . Patient to call to schedule her appointment. Appointment confirmation letter mailed to the patient's home address. CCDA completed. Initiated Referral: Pending Referral Source Referral Request CCDA Referral: Pending Nephrology Referral Information Patient requesting to be seen by a Pulp Tester. Patient agreed to be seen and does not have a preferred provider. Patient denies any concerns with transportation. Herpetology Teacher placed a call out to [facility] office at and confirmed that their office is able to accept new patients. Herpetology Teacher faxed over the patient's referral, clinical notes, [...] prefers a provider close to her home. Herpetology Teacher placed a call out to [facility] P: , but was told by Won that their office is not able to accept new patients. Herpetology Teacher then called [facility] and spoke with Yusra who asked that the patient's referral, and clinical notes be faxed to . Herpetology Teacher faxed over the requested documents. Patient to call to schedule her appointment. Appointment confirmation letter mailed to the patient's home address. CCDA completed. Processed Referral: Pending Cardiology Referral Information Patient notified that it has been advised that she be seen by a Superintendent Meters. Patient agreed to be seen and prefers to be seen by any provider that is close to her home. Patient denies any concerns with transportation, and prefers to schedule her own appointment. Herpetology Teacher placed a call out to [facility] and spoke with Alvina P: who confirmed that their office is able to accept new patients and the patient's insurance. After confirming the providers fax number, personal lines underwriter faxed over the patient's referral, and [...] but prefers to stay close to home. Herpetology Teacher placed a call out to [facility]st[facility] Gynecology Mikayla Enrique and confirmed that they are able to accept new patient's and the patient's insurance. Patient does not have any transportation issues. Herpetology Teacher faxed over patient's referral and clinical notes [...] and prefers to schedule her own appointment. Herpetology Teacher placed a call out to [facility] and spoke with Guadalupe P: who confirmed that their office is able to accept new patients and the patient's insurance. After confirming the providers fax number, personal lines underwriter faxed over the patient's referral, xrays, and most recent clinical notes to F: . Patient to call to schedule her appointment. Appointment confirmation letter mailed to the patient's home address. CCDA completed. Processed Instructions Comment Date . Visit via [facility] F31.10 Bipolar I disorder, most recent episode manic, F40.10 Social phobia, F42.9 Obsessive-compulsive disorder, F43.10 Posttraumatic stress disorder, F44.81 Dissociative identity disorder tearful this visit, allowed to vent, difficult to discuss other health issues as she continually came back to talk about her daughter 05/10/2021 PHQ 9 Score 2 currently not on medication, reluctant to take medications due to high risk of side effects agreeable this visit to referral sent PREVENTATIVE F17.210-305.1 (F17.210-305.1) Nicotine dependence, cigarettes, uncomplicated 12/16/2020 [...] request records patient reports had Mammogram at [facility] which showed dense breast recomnmending 6 month follow up-will request records again this visit Z12.11-V76.51 (Z12.11-V76.51) Encounter for screening for malignant neoplasm of colon 09/29/2020 negative Z13.9-V82.9 Encounter for screening 09/11/2020 Maltreatment assessment complete-patient denies any form of abuse or neglect Z00.01-V70.0 (Z00.01-V70.0) Encounter for general adult medical examination with abnormal findings 12/16/2020 AWV complete 12/16/2020 ACP reviewed wishes to remain full code 05/10/2021 Medical Equipment No Medical Equipment data Advance Directives No Advance Directive data
--- OUTSIDE RECORDS SUMMARY | 2023-09-25 00:18 | XMS_ITS | CCD ---
Author Organization Unknown Care Team Providers Care New Home Sales Consultant Name Role Phone Elbert BURTON, Frances Primary Care Provider Unav ailable Unavailable Chronic Care Management Unavaila ble Summary Purpose DataExchange Insurance Providers Payer name Policy type / Coverage type Covered democrat ID Effective Begin Date Effective End Date BRENDAN [facility] [id number] Unknown Unknown Family history Father Diagnosis Age [...] Current Smoker 12/05/[address]: 376127337 Never drinks alco hol 12/05/2019 Allergies, Adverse [...] D3) 50 mcg (2,000 unit) tablet RxNorm: 016886 TAKE 1 TABLET BY MOUTH EVERY DAY 1 021 Inactive Daily Vitamin Formula tablet RxNorm: 1 Tablet(s) Oral every day 0 021 Inactive cholecalciferol (vitamin D3) 2,000 unit tablet RxNorm: 318456 1 Tablet(s) Oral every day 0 021 Inactive Marijuana (Legal) RxNorm: 0 Active Medication Administered No Medication Administered data Procedures Procedure Codes Date Patient Health Questionnaire CPT-4: DPHQ 11/2020 Annual Wellness Visit (Subsequent Visit) CPT-4: G0439 12/16/2020 Tobacco Assessment/Screening CPT-4: TCA 07/2021 Patient Health Questionnaire CPT-4: DPHQ 07/2021 Advanced Care Planning CPT-4: VACP 1 Hypertension CPT-4: HTN 10/27/2020 Fall Risk Assessment SNOMED CT: 12734299 4 CPT-4: DFRA 04/21/2020 Tobacco Assessment/Screening CPT-4: TCA Functional Assessment CPT-4: DFA 03/02/2020 Hypertension CPT-4: HTN 12/05/2019 Electrocardiogram CPT-4: 43447 12/05/2019 Tobacco Assessment/Screening CPT-4: TCA Urinalysis, dip stick CPT-4: 44610 12/05/2019 Elder Abuse Screening CPT-4: EAS 12/05/2019 [place] Nasim Assessment CPT-4: DSWA 11/07 External Mammogram CPT-4: EMAM Unknown Fecal Occult Blood Test (FOBT) Screening CPT-4: G0328 Unknown Fecal Occult Blood Test (FOBT) Screening CPT-4: G0328 Unknown Gynecology Referral SNOMED CT: 880298378 CPT-4: R14 Unknown External Mammogram CPT-4: EMAM Unknown [id number] CPT-4: 67632 Unknown Reason For Visit No Reason For [...] After trying multiple providers in the area, internal communications writer spoke with Caryl at [facility] who states that they are able to accept new patient's. Caryl asked that patient's referral and visit notes be faxed to [phone]. Vertical Borer faxed over requested documents. Patient to call to schedule an appointment. Patient's referral confirmation letter mailed to her home address. Processed Referral: Pending Cardiology Referral Information Patient requesting to be seen by Cardiology. Patient denies any concerns with transportation, and prefers to schedule her own appointment. Vertical Borer faxed over the patient's referral, most recent clinical notes, most recent echo and most recent EKG to F: . Patient to call to schedule her appointment. Appointment confirmation letter mailed to the patient's home address. CCDA completed. Initiated Referral: Pending Referral Source Referral Request CCDA Referral: Pending Nephrology Referral Information Patient requesting to be seen by a Saw Handle Assembler. Patient agreed to be seen and does not have a preferred provider. Patient denies any concerns with transportation. Vertical Borer placed a call out to [facility] office at and confirmed that their office is able to accept new patients. Vertical Borer faxed over the patient's referral, clinical notes, [...] prefers a provider close to her home. Vertical Borer placed a call out to [facility] P: , but was told by Won that their office is not able to accept new patients. Vertical Borer then called [facility] and spoke with Yusra who asked that the patient's referral, and clinical notes be faxed to . Vertical Borer faxed over the requested documents. Patient to call to schedule her appointment. Appointment confirmation letter mailed to the patient's home address. CCDA completed. Processed Referral: Pending Cardiology Referral Information Patient notified that it has been advised that she be seen by a Rope Laying Machine Operator. Patient agreed to be seen and prefers to be seen by any provider that is close to her home. Patient denies any concerns with transportation, and prefers to schedule her own appointment. Vertical Borer placed a call out to [facility] and spoke with Alvina P: who confirmed that their office is able to accept new patients and the patient's insurance. After confirming the providers fax number, internal communications writer faxed over the patient's referral, and [...] but prefers to stay close to home. Vertical Borer placed a call out to [facility]necology Mikayla Enrique and confirmed that they are able to accept new patient's and the patient's insurance. Patient does not have any transportation issues. Vertical Borer faxed over patient's referral and clinical notes [...] and prefers to schedule her own appointment. Vertical Borer placed a call out to [facility] and spoke with Guadalupe P: who confirmed that their office is able to accept new patients and the patient's insurance. After confirming the providers fax number, internal communications writer faxed over the patient's referral, xrays, and most recent clinical notes to F: . Patient to call to schedule her appointment. Appointment confirmation letter mailed to the patient's home address. CCDA completed. Processed Medical Equipment No Medical Equipment data Advance Directives No Advance Directive data
--- OUTSIDE RECORDS SUMMARY | 2023-09-25 00:20 | XMS_ITS | CCD ---
Author Name Bess Boswell NP Address [address] [place] [address] [address] [place] [address] Phone Organization [facility] Phone Care Team Providers Care Healthcare Social Worker Name Role Phone Frances Boswell NP Primary Care Provider Unav ailable Unavailable Chronic Care Management Unavaila ble Summary Purpose DataExchange Insurance Providers Payer name Policy type / Coverage type Covered libertarian ID Effective Begin Date Effective End Date BRENDAN ALFONSO [id number] Unknown Unknown Family history Father Diagnosis Age [...] Current Smoker 12/05/[address]: 318932540 Never drinks alco hol 12/05/2019 Allergies, Adverse [...] ICD-10: F4 2.9 ICD-9: 300.3 12/05/2019 Active CAD (coronary artery disease) ICD-10: I2 5.10 ICD-9: 414.00 10/07/2021 Active Elevated blood pressure reading ICD-10: R03.0 [...] D3) 50 mcg (2,000 unit) tablet RxNorm: 682515 TAKE 1 TABLET BY MOUTH EVERY DAY 1 021 Inactive Daily Vitamin Formula tablet RxNorm: 1 Tablet(s) Oral every day 0 021 Inactive cholecalciferol (vitamin D3) 2,000 unit tablet RxNorm: 697432 1 Tablet(s) Oral every day 0 021 [...] HTN 10/27/2020 Fall Risk Assessment SNOMED CT: 27073558 4 CPT-4: DFRA 04/21/2020 Tobacco Assessment/Screening CPT-4: TCA Functional Assessment CPT-4: DFA 03/02/2020 Hypertension CPT-4: HTN 12/05/2019 Electrocardiogram CPT-4: 32508 12/05/2019 Tobacco Assessment/Screening CPT-4: TCA Urinalysis, dip stick CPT-4: 53950 12/05/2019 Elder Abuse Screening CPT-4: EAS 12/05/2019 [place] Nasim Assessment CPT-4: DSWA 11/07 External Mammogram CPT-4: EMAM Unknown Fecal Occult Blood Test (FOBT) Screening CPT-4: G0328 Unknown Fecal Occult Blood Test (FOBT) Screening CPT-4: G0328 Unknown Gynecology Referral SNOMED CT: 538266473 CPT-4: R14 Unknown External Mammogram CPT-4: EMAM Unknown V5D-Osodnrhfiymapek CPT-4: 73851 Unknown Reason For Visit No Reason For Visit data Plan of Care Planned Activity Notes Codes Status Date Patient Education: Patient Medication Summary Completed 11/08/2021 Appointment: Kevyn Valentin WPtel: [address] [facility] [address] [id number] [place] E410 10/07/2021 Appointment: Nicanor Man WPtel: [address] [place] [address] E410 09/06/2021 Appointment: Frances Boswell WPtel: [address] [place] [address] [place] ETV 05/10/2021 Appointment: Frances Boswell WPtel: [address] [place] [address] [place] ETV 03/02/2021 Appointment: Naman Villarreal: [address] [place] [address] RLOL 02/10/2021 Appointment: Frances Boswell WPtel: [address] [place] [address] E410 02/03/2021 Appointment: Fabiola Madsen: [id number] [place] ECHO 01/26/2021 Appointment: Frances Boswell WPtel: [address] [place] [address] ETV 01/22/2021 Appointment: Frances Boswell WPtel: [address] [place] [address] [place] E410 12/16/2020 Appointment: Frances Boswell WPtel: [address] [place] [address] [place] ETV 10/27/2020 Appointment: Megan Coello: [address] [facility] [address] [facility] [place] MULT 10/08/2020 Appointment: Frances Boswell WPtel: [address] [place] [address] [place] E410 10/07/2020 Appointment: Frances Boswell WPtel: [address] [place] [address] [place] ETV 09/11/2020 Appointment: Frances Boswell WPtel: [address] [place] [address] ETV 07/24/2020 Appointment: Frances Boswell WPtel: [address] [place] [address] [place] ETV 06/26/2020 Appointment: Frances Boswell WPtel: [address] [place] [address] [place] ETV 05/15/2020 Appointment: Frances Boswell WPtel: [address] [place] [address] E410 04/21/2020 Appointment: Frances Boswell WPtel: [address] [place] [address] E410 03/02/2020 Appointment: Frances Boswell WPtel: [address] [place], [place] [id number] [place] E410 12/31/2019 Appointment: Kevyn Valentin WPtel: [address] [facility] [address] [id number] [place] N410 12/05/2019 Referral: Pending Mental Health Services Referral Information Patient notified that it has been recommended that she be seen by Mental Health. Patient agreed to be seen and prefers to be seen close to home. Patient does not have any transportation issues. After trying multiple providers in the area, rewriter spoke with Caryl at [facility] who states that they are able to accept new patient's. Caryl asked that patient's referral and visit notes be faxed to [phone]. Education And Development Manager faxed over requested documents. Patient to call to schedule an appointment. Patient's referral confirmation letter mailed to her home address. Processed Referral: Pending Cardiology Referral Information Patient requesting to be seen by Cardiology. Patient denies any concerns with transportation, and prefers to schedule her own appointment. Education And Development Manager faxed over the patient's referral, most recent clinical notes, most recent echo and most recent EKG to F: . Patient to call to schedule her appointment. Appointment confirmation letter mailed to the patient's home address. CCDA completed. Initiated Referral: Pending Referral Source Referral Request CCDA Referral: Pending Nephrology Referral Information Patient requesting to be seen by a E Marketing Specialist. Patient agreed to be seen and does not have a preferred provider. Patient denies any concerns with transportation. Education And Development Manager placed a call out to [facility] office at and confirmed that their office is able to accept new patients. Education And Development Manager faxed over the patient's referral, clinical notes, [...] prefers a provider close to her home. Education And Development Manager placed a call out to [facility] P: , but was told by Won that their office is not able to accept new patients. Education And Development Manager then called [facility] and [facility] and spoke with Yusra who asked that the patient's referral, and clinical notes be faxed to . Education And Development Manager faxed over the requested documents. Patient to call to schedule her appointment. Appointment confirmation letter mailed to the patient's home address. CCDA completed. Processed Referral: Pending Cardiology Referral Information Patient notified that it has been advised that she be seen by a Computer Networking Instructor. Patient agreed to be seen and prefers to be seen by any provider that is close to her home. Patient denies any concerns with transportation, and prefers to schedule her own appointment. Education And Development Manager placed a call out to [facility] and spoke with Alvina [...] but prefers to stay close to home. Education And Development Manager placed a call out to [facility] - [place] and confirmed that they are able to accept new patient's and the patient's insurance. Patient does not have any transportation issues. Education And Development Manager faxed over patient's referral and clinical notes [...] and prefers to schedule her own appointment. Education And Development Manager placed a call out to [facility] and spoke with Guadalupe P: who [...]
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
--- OUTSIDE RECORDS SUMMARY | 2023-09-25 00:21 | XMS_ITS | CCD ---
Author Name Bess Boswell NP Address [address] [place] [address] [address] [place] [address] Phone Organization [facility] Phone Care Team Providers Care Mirror Fabrication Supervisor Name Role Phone Frances Boswell NP Primary Care Provider Unav ailable Unavailable Chronic Care Management Unavaila ble Summary Purpose DataExchange Insurance Providers Payer name Policy type / Coverage type Covered republican ID Effective Begin Date Effective End Date BRENDAN ALFONSO [id number] Unknown Unknown Family history Father Diagnosis Age [...] Current Smoker 12/05/[address]: 436490177 Never drinks alco hol 12/05/2019 Allergies, Adverse Reactions, Alerts Substance Reaction Codes Entered Date Inactivated Date Status *No known drug allergies Unknown 12/05/2019 No I nactive Date Active Problems Condition Codes Effective Dates Condition St atus Tinea cruris ICD-10: B35.6 ICD-9: 110.3 01/12/2022 Active Bitten by cat, initial encounter ICD-10: W55.01XA [...] Start Date Stop Date Status Fill Instructions clotrimazole 1 % topical cream RxNorm: 761772 Apply 1 Application Topical two times a day as needed apply to affected area(s) twice daily until healed 2 023 Inactive hydrocortisone 1 % lotion RxNorm: 757131 Take 2 Gram(s) Topical every day 2 022 Inactive Daily-Davion tablet RxNorm: Take 1 Tablet( s) Oral every day 1 021 Inactive Daily Vitamin Formula tablet RxNorm: 1 Tablet(s) Oral every day 1 021 Inactive cholecalciferol (vitamin D3) 50 mcg (2,000 unit) tablet RxNorm: 431788 TAKE 1 TABLET BY MOUTH EVERY DAY 1 021 Inactive Daily Vitamin Formula tablet RxNorm: 1 Tablet(s) Oral every day 0 021 Inactive cholecalciferol (vitamin D3) 2,000 unit tablet RxNorm: 342636 1 Tablet(s) Oral every day 0 021 Inactive Marijuana (Legal) RxNorm: 0 Active Medication Administered No Medication Administered data Procedures Procedure Codes Date Improving Bladder Control CPT-4: IBC 2021 Monitoring Physical Activity CPT-4: MPA 07/2022 Pain Screening CPT-4: PAS 12/16/2021 Annual Wellness Visit (Subsequent Visit) CPT-4: G0439 12/16/2021 Fall Risk Assessment SNOMED CT: 25928745 4 CPT-4: DFRA 12/16/2021 Patient Health Questionnaire CPT-4: DPHQ Frailty Screening CPT-4: SFD 09/06/2021 Patient Health Questionnaire CPT-4: DPHQ 11/2020 Annual Wellness Visit (Subsequent Visit) CPT-4: G0439 12/16/2020 Tobacco Assessment/Screening CPT-4: TCA 07/2021 Patient Health Questionnaire CPT-4: DPHQ 07/2021 Advanced Care Planning CPT-4: VACP Hypertension CPT-4: HTN 10/27/2020 Fall Risk Assessment SNOMED CT: 02992275 4 CPT-4: DFRA 04/21/2020 Tobacco Assessment/Screening CPT-4: TCA Functional Assessment CPT-4: DFA 03/02/2020 Hypertension CPT-4: HTN 12/05/2019 Electrocardiogram CPT-4: 62218 12/05/2019 Tobacco Assessment/Screening CPT-4: TCA Urinalysis, dip stick CPT-4: 25236 12/05/2019 Elder Abuse Screening CPT-4: EAS 12/05/2019 Radnor Nasim Assessment CPT-4: DSWA 11/07 External Mammogram CPT-4: EMAM Unknown Fecal Occult Blood Test (FOBT) Screening CPT-4: G0328 Unknown Fecal Occult Blood Test (FOBT) Screening CPT-4: G0328 Unknown Gynecology Referral SNOMED CT: 564478470 CPT-4: R14 Unknown External Mammogram CPT-4: EMAM Unknown [id number]-[id number] CPT-4: 55834 Unknown Reason For Visit No Reason For Visit data Plan of Care Planned Activity Notes Codes Status Date Patient Education: Patient Medication Summary Completed 01/12/2022 Appointment: Frances Boswell WPtel: [address] [place] [address] ETV 01/05/2022 Appointment: Nicanor Man WPtel: [address] [place] [address] E410 12/16/2021 Appointment: Kevyn Valentin WPtel: [facility] b [id number] [place] E410 10/07/2021 Appointment: Nicanor Man WPtel: [address] [place] [address] E410 09/06/2021 Appointment: Frances Boswell WPtel: [address] [place] [address] ETV 05/10/2021 Appointment: Frances Boswell WPtel: [address] [place] [address] ETV 03/02/2021 Appointment: Naman Villarreal: [address] [place] [address] [place] RLOL 02/10/2021 Appointment: Frances Boswell WPtel: [address] [place] [address] E410 02/03/2021 Appointment: Fabiola Madsen: [id number] [place] ECHO 01/26/2021 Appointment: Frances Boswell WPtel: [address] [place] [address] [place] ETV 01/22/2021 Appointment: Frances Boswell WPtel: [address] [place] [address] E410 12/16/2020 Appointment: Frances Boswell WPtel: [id number] [place] [address] [place] ETV 10/27/2020 Appointment: Megan Coello: [address] [facility] [address] [id number] [place] MULT 10/08/2020 Appointment: Frances Boswell WPtel: [address] [place] [address] [place] E410 10/07/2020 Appointment: Frances Boswell WPtel: [address] [place] [address] [place] ETV 09/11/2020 Appointment: Frances Boswell WPtel: [address] [place] [address] [place] ETV 07/24/2020 Appointment: Frances Boswell WPtel: [address] [place] [address] [place] ETV 06/26/2020 Appointment: Frances Boswell WPtel: [address] [place] [address] [place] ETV 05/15/2020 Appointment: Frances Boswell WPtel: [address] [place] [address] [place] E410 04/21/2020 Appointment: Frances Boswell WPtel: [address] [place] [address] [place] E410 03/02/2020 Appointment: Frances Boswell WPtel: [address] [place] [address] [place] E410 12/31/2019 Appointment: Kevyn Valentin WPtel: [facility] [address] [id number] [place] N410 12/05/2019 Referral: Pending Mental Health Services Referral Information Patient notified that it has been recommended that she be seen by Mental Health. Patient agreed to be seen and prefers to be seen close to home. Patient does not have any transportation issues. After trying multiple providers in the area, ticket writer spoke with Caryl at [facility] who states that they are able to accept new patient's. Caryl asked that patient's referral and visit notes be faxed to [phone]. Account Management Specialist faxed over requested documents. Patient to call to schedule an appointment. Patient's referral confirmation letter mailed to her home address. Processed Referral: Pending Cardiology Referral Information Patient requesting to be seen by Cardiology. Patient denies any concerns with transportation, and prefers to schedule her own appointment. Account Management Specialist faxed over the patient's referral, most recent clinical notes, most recent echo and most recent EKG to F: . Patient to call to schedule her appointment. Appointment confirmation letter mailed to the patient's home address. CCDA completed. Initiated Referral: Pending Referral Source Referral Request CCDA Referral: Pending Nephrology Referral Information Patient requesting to be seen by a Food Mixer Repairer. Patient agreed to be seen and does not have a preferred provider. Patient denies any concerns with transportation. Account Management Specialist placed a call out to [facility] office at and confirmed that their office is able to accept new patients. Account Management Specialist faxed over the patient's referral, clinical [...] prefers a provider close to her home. Account Management Specialist placed a call out to [facility] [facility] P: , but was told by Won that their office is not able to accept new patients. Account Management Specialist then called [facility] and [facility] and spoke with Yusra who asked that the patient's referral, and clinical notes be faxed to . Account Management Specialist faxed over the requested documents. Patient to call to schedule her appointment. Appointment confirmation letter mailed to the patient's home address. CCDA completed. Processed Referral: Pending Cardiology Referral Information Patient notified that it has been advised that she be seen by a Aeronautical Test Engineer. Patient agreed to be seen and prefers to be seen by any provider that is close to her home. Patient denies any concerns with transportation, and prefers to schedule her own appointment. Account Management Specialist placed a call out to [facility] Cardiology and spoke with Alvina P: who confirmed that their office is able to accept new patients and the patient's insurance. After confirming the providers fax number, ticket writer faxed over the patient's referral, and [...] but prefers to stay close to home. Account Management Specialist placed a call out to [facility] Obstetric[facility] Gynecology [facility] and confirmed that they are able to accept new patient's and the patient's insurance. Patient does not have any transportation issues. Account Management Specialist faxed over patient's referral and clinical [...] and prefers to schedule her own appointment. Account Management Specialist placed a call out to [facility] Orthopaedics and spoke with Guadalupe P: who confirmed that their office is able to accept new patients and the patient's insurance. After confirming the providers fax number, ticket writer faxed over the patient's referral, xrays, and most recent clinical notes to F: . Patient to call to schedule her appointment. Appointment confirmation letter mailed to the patient's home address. CCDA completed. Processed Medical Equipment No Medical Equipment data Advance Directives No Advance Directive data
--- OUTSIDE RECORDS SUMMARY | 2023-09-25 00:22 | XMS_ITS | CCD ---
Author Organization Unknown Care Team Providers Care Station Captain Name Role Phone Elbert BURTON, Frances Primary Care Provider Unav ailable Unavailable Chronic Care Management Unavaila ble Summary Purpose DataExchange Insurance Providers Payer name Policy type / Coverage type Covered green party ID Effective Begin Date Effective End Date BRENDAN MEANS [facility] [id number] Unknown Unknown Family history Father Diagnosis Age [...] Current Smoker 12/05/[address]: 255060630 Never drinks alco hol 12/05/2019 Allergies, Adverse [...] Take 1 Tablet( s) Oral every day 2 022 Inactive clotrimazole 1 % topical cream RxNorm: 075115 Apply 1 Application Topical two times a day as needed apply to affected area(s) twice daily until healed 2 023 Inactive hydrocortisone 1 % lotion RxNorm: 971914 Take 2 Gram(s) Topical every day 2 022 Inactive Daily-Davion tablet RxNorm: Take 1 Tablet( s) Oral every day 1 021 Inactive Daily Vitamin Formula tablet RxNorm: 1 Tablet(s) Oral every day 1 021 Inactive cholecalciferol (vitamin D3) 50 mcg (2,000 unit) tablet RxNorm: 817640 TAKE 1 TABLET BY MOUTH EVERY DAY 1 021 Inactive Daily Vitamin Formula tablet RxNorm: 1 Tablet(s) Oral every day 0 021 Inactive cholecalciferol (vitamin D3) 2,000 unit tablet RxNorm: 252764 1 Tablet(s) Oral every day 0 021 Inactive Marijuana (Legal) RxNorm: 0 Active Medication Administered No Medication Administered data Procedures Procedure Codes Date Improving Bladder Control CPT-4: IBC 2021 Monitoring Physical Activity CPT-4: MPA 07/2022 Pain Screening CPT-4: PAS 12/16/2021 Annual Wellness Visit (Subsequent Visit) CPT-4: G0439 12/16/2021 Fall Risk Assessment SNOMED CT: 63642907 4 CPT-4: DFRA 12/16/2021 Patient Health Questionnaire CPT-4: DPHQ Frailty Screening CPT-4: SFD 09/06/2021 Patient Health Questionnaire CPT-4: DPHQ 11/2020 Annual Wellness Visit (Subsequent Visit) CPT-4: G0439 12/16/2020 Tobacco Assessment/Screening CPT-4: TCA 07/2021 Patient Health Questionnaire CPT-4: DPHQ 07/2021 Advanced Care Planning CPT-4: VACP Hypertension CPT-4: HTN 10/27/2020 Fall Risk Assessment SNOMED CT: 05091815 4 CPT-4: DFRA 04/21/2020 Tobacco Assessment/Screening CPT-4: TCA Functional Assessment CPT-4: DFA 03/02/2020 Hypertension CPT-4: HTN 12/05/2019 Electrocardiogram CPT-4: 49835 12/05/2019 Tobacco Assessment/Screening CPT-4: TCA Urinalysis, dip stick CPT-4: 94616 12/05/2019 Elder Abuse Screening CPT-4: EAS 12/05/2019 [place] Nasim Assessment CPT-4: DSWA 11/07 External Mammogram CPT-4: EMAM Unknown Fecal Occult Blood Test (FOBT) Screening CPT-4: G0328 Unknown Fecal Occult Blood Test (FOBT) Screening CPT-4: G0328 Unknown Gynecology Referral SNOMED CT: 335899918 CPT-4: R14 Unknown External Mammogram CPT-4: EMAM Unknown I4Q-Gkejrqsbhyyfltu CPT-4: 55316 Unknown Reason For Visit No Reason For [...] After trying multiple providers in the area, expert medical writer spoke with Caryl at [facility] who states that they are able to accept new patient's. Caryl asked that patient's referral and visit notes be faxed to [phone]. Fare Enforcement Officer faxed over requested documents. Patient to call to schedule an appointment. Patient's referral confirmation letter mailed to her home address. Processed Referral: Pending Cardiology Referral Information Patient requesting to be seen by Cardiology. Patient denies any concerns with transportation, and prefers to schedule her own appointment. Fare Enforcement Officer faxed over the patient's referral, most recent clinical notes, most recent echo and most recent EKG to F: . Patient to call to schedule her appointment. Appointment confirmation letter mailed to the patient's home address. CCDA completed. Initiated Referral: Pending Referral Source Referral Request CCDA Referral: Pending Nephrology Referral Information Patient requesting to be seen by a Jacquard Card Cutter. Patient agreed to be seen and does not have a preferred provider. Patient denies any concerns with transportation. Fare Enforcement Officer placed a call out to [facility] office at and confirmed that their office is able to accept new patients. Fare Enforcement Officer faxed over the patient's referral, clinical notes, [...] prefers a provider close to her home. Fare Enforcement Officer placed a call out to [facility] P: , but was told by Won that their office is not able to accept new patients. Fare Enforcement Officer then called [facility][1] and [facility] and spoke with Yusra who asked that the patient's referral, and clinical notes be faxed to . Fare Enforcement Officer faxed over the requested documents. Patient to call to schedule her appointment. Appointment confirmation letter mailed to the patient's home address. CCDA completed. Processed Referral: Pending Cardiology Referral Information Patient notified that it has been advised that she be seen by a Transition Program Manager. Patient agreed to be seen and prefers to be seen by any provider that is close to her home. Patient denies any concerns with transportation, and prefers to schedule her own appointment. Fare Enforcement Officer placed a call out to [facility] Cardiology and spoke with Alvina P: who confirmed that their office is able to accept new patients and the patient's insurance. After confirming the providers fax number, expert medical writer faxed over the patient's referral, and [...] but prefers to stay close to home. Fare Enforcement Officer placed a call out to [facility] Obstetric[facility] Gynecology [facility] and confirmed that they are able to accept new patient's and the patient's insurance. Patient does not have any transportation issues. Fare Enforcement Officer faxed over patient's referral and clinical notes [...] and prefers to schedule her own appointment. Fare Enforcement Officer placed a call out to [facility] Orthopaedics and spoke with Guadalupe P: who confirmed that their office is able to accept new patients and the patient's insurance. After confirming the providers fax number, expert medical writer faxed over the patient's referral, xrays, and most recent clinical notes to F: . Patient to call to schedule her appointment. Appointment confirmation letter mailed to the patient's home address. CCDA completed. Processed Medical Equipment No Medical Equipment data Advance Directives No Advance Directive data
--- OUTSIDE RECORDS SUMMARY | 2023-09-25 00:22 | XMS_ITS | CCD ---
Author Organization Unknown Care Team Providers Care Certified Alcohol And Drug Counselor Name Role Phone Elbert BURTON, Frances Primary Care Provider Unav ailable Unavailable Chronic Care Management Unavaila ble Summary Purpose DataExchange Insurance Providers Payer name Policy type / Coverage type Covered constitution party ID Effective Begin Date Effective End Date BRENDAN MEANS [facility] [id number] Unknown Unknown Family history Father Diagnosis Age [...] Current Smoker 12/05/[address]: 557393282 Never drinks alco hol 12/05/2019 Allergies, Adverse [...] D3) 50 mcg (2,000 unit) tablet RxNorm: 987627 TAKE 1 TABLET BY MOUTH EVERY DAY 2 022 Inactive Daily-Davion tablet RxNorm: Take 1 Tablet( s) Oral every day 2 022 Inactive clotrimazole 1 % topical cream RxNorm: 450462 Apply 1 Application Topical two times a day as needed apply to affected area(s) twice daily until healed 2 023 Inactive hydrocortisone 1 % lotion RxNorm: 477615 Take 2 Gram(s) Topical every day 2 022 Inactive Daily-Davion tablet RxNorm: Take 1 Tablet( s) Oral every day 1 021 Inactive Daily Vitamin Formula tablet RxNorm: 1 Tablet(s) Oral every day 1 021 Inactive cholecalciferol (vitamin D3) 50 mcg (2,000 unit) tablet RxNorm: 794393 TAKE 1 TABLET BY MOUTH EVERY DAY 1 021 Inactive Daily Vitamin Formula tablet RxNorm: 1 Tablet(s) Oral every day 0 021 Inactive cholecalciferol (vitamin D3) 2,000 unit tablet RxNorm: 659906 1 Tablet(s) Oral every day 0 021 Inactive Marijuana (Legal) RxNorm: 0 Active Medication Administered No Medication Administered data Procedures Procedure Codes Date Improving Bladder Control CPT-4: IBC 2021 Monitoring Physical Activity CPT-4: MPA 07/2022 Pain Screening CPT-4: PAS 12/16/2021 Annual Wellness Visit (Subsequent Visit) CPT-4: G0439 12/16/2021 Fall Risk Assessment SNOMED CT: 26990674 4 CPT-4: DFRA 12/16/2021 Patient Health Questionnaire CPT-4: DPHQ Frailty Screening CPT-4: SFD 09/06/2021 Patient Health Questionnaire CPT-4: DPHQ 11/2020 Annual Wellness Visit (Subsequent Visit) CPT-4: G0439 12/16/2020 Tobacco Assessment/Screening CPT-4: TCA 07/2021 Patient Health Questionnaire CPT-4: DPHQ 07/2021 Advanced Care Planning CPT-4: VACP Hypertension CPT-4: HTN 10/27/2020 Fall Risk Assessment SNOMED CT: 28019627 4 CPT-4: DFRA 04/21/2020 Tobacco Assessment/Screening CPT-4: TCA Functional Assessment CPT-4: DFA 03/02/2020 Hypertension CPT-4: HTN 12/05/2019 Electrocardiogram CPT-4: 54348 12/05/2019 Tobacco Assessment/Screening CPT-4: TCA Urinalysis, dip stick CPT-4: 90052 12/05/2019 Elder Abuse Screening CPT-4: EAS 12/05/2019 [place] Nasim Assessment CPT-4: DSWA 11/07 External Mammogram CPT-4: EMAM Unknown Fecal Occult Blood Test (FOBT) Screening CPT-4: G0328 Unknown Fecal Occult Blood Test (FOBT) Screening CPT-4: G0328 Unknown Gynecology Referral SNOMED CT: 694440560 CPT-4: R14 Unknown External Mammogram CPT-4: EMAM Unknown [id number] CPT-4: 88716 Unknown Reason For Visit No Reason For [...] After trying multiple providers in the area, clinical writer spoke with Caryl at [facility] who states that they are able to accept new patient's. Caryl asked that patient's referral and visit notes be faxed to [phone]. Stage Hand faxed over requested documents. Patient to call to schedule an appointment. Patient's referral confirmation letter mailed to her home address. Processed Referral: Pending Cardiology Referral Information Patient requesting to be seen by Cardiology. Patient denies any concerns with transportation, and prefers to schedule her own appointment. Stage Hand faxed over the patient's referral, most recent clinical notes, most recent echo and most recent EKG to F: . Patient to call to schedule her appointment. Appointment confirmation letter mailed to the patient's home address. CCDA completed. Initiated Referral: Pending Referral Source Referral Request CCDA Referral: Pending Nephrology Referral Information Patient requesting to be seen by a Copy Room Technician. Patient agreed to be seen and does not have a preferred provider. Patient denies any concerns with transportation. Stage Hand placed a call out to [facility] Ne[facility] office at and confirmed that their office is able to accept new patients. Stage Hand faxed over the patient's referral, clinical notes, [...] prefers a provider close to her home. Stage Hand placed a call out to [facility] P: , but was told by Won that their office is not able to accept new patients. Stage Hand then called [facility] and [facility] and spoke with Yusra who asked that the patient's referral, and clinical notes be faxed to . Stage Hand faxed over the requested documents. Patient to call to schedule her appointment. Appointment confirmation letter mailed to the patient's home address. CCDA completed. Processed Referral: Pending Cardiology Referral Information Patient notified that it has been advised that she be seen by a Substation Manager. Patient agreed to be seen and prefers to be seen by any provider that is close to her home. Patient denies any concerns with transportation, and prefers to schedule her own appointment. Stage Hand placed a call out to [facility] Cardiology and spoke with Alvina P: who confirmed that their office is able to accept new patients and the patient's insurance. After confirming the providers fax number, clinical writer faxed over the patient's referral, and [...] but prefers to stay close to home. Stage Hand placed a call out to [facility] and confirmed that they are able to accept new patient's and the patient's insurance. Patient does not have any transportation issues. Stage Hand faxed over patient's referral and clinical notes [...] and prefers to schedule her own appointment. Stage Hand placed a call out to [facility] Orthopaedics and spoke with Guadalupe P: who confirmed that their office is able to accept new patients and the patient's insurance. After confirming the providers fax number, clinical writer faxed over the patient's referral, xrays, and most recent clinical notes to F: . Patient to call to schedule her appointment. Appointment confirmation letter mailed to the patient's home address. CCDA completed. Processed Medical Equipment No Medical Equipment data Advance Directives No Advance Directive data
--- OUTSIDE RECORDS SUMMARY | 2023-09-25 00:23 | XMS_ITS | CCD ---
Author Name Bess Boswell NP Address [address] [place] [address] [address] [place] [address] Phone Organization [facility] Phone Care Team Providers Care Tool Worker Name Role Phone Frances Boswell NP Primary Care Provider Unav ailable Unavailable Chronic Care Management Unavaila ble Summary Purpose DataExchange Insurance Providers Payer name Policy type / Coverage type Covered constitution party ID Effective Begin Date Effective End Date BRENDAN ALFONSO [id number] Unknown Unknown Family history Father Diagnosis Age [...] Current Smoker 12/05/[address]: 514417041 Never drinks alco hol 12/05/2019 Allergies, Adverse Reactions, Alerts Substance Reaction Codes Entered Date Inactivated Date Status *No known drug allergies Unknown 12/05/2019 No I nactive Date Active Problems Condition Codes Effective Dates Condition St atus Patient not seen ICD-10: UXZ.01 ICD-9: UXZ.01 04/27/2022 Active Tinea cruris ICD-10: B35.6 ICD-9: 110.3 01/12/2022 [...] screening ICD-10: Z13.9 ICD-9: V82.9 04/21/2020 Resolved Status post fracture of tibia ICD-10: [...] D3) 50 mcg (2,000 unit) tablet RxNorm: 648143 TAKE 1 TABLET BY MOUTH EVERY DAY 2 022 Inactive Daily-Davion tablet RxNorm: Take 1 Tablet( s) Oral every day 2 022 Inactive clotrimazole 1 % topical cream RxNorm: 227127 Apply 1 Application Topical two times a day as needed apply to affected area(s) twice daily until healed 2 023 Inactive hydrocortisone 1 % lotion RxNorm: 450887 Take 2 Gram(s) Topical every day 2 022 Inactive Daily-Davion tablet RxNorm: Take 1 Tablet( s) Oral every day 1 021 Inactive Daily Vitamin Formula tablet RxNorm: 1 Tablet(s) Oral every day 1 021 Inactive cholecalciferol (vitamin D3) 50 mcg (2,000 unit) tablet RxNorm: 102946 TAKE 1 TABLET BY MOUTH EVERY DAY 1 021 Inactive Daily Vitamin Formula tablet RxNorm: 1 Tablet(s) Oral every day 0 021 Inactive cholecalciferol (vitamin D3) 2,000 unit tablet RxNorm: 726804 1 Tablet(s) Oral every day 0 021 Inactive Marijuana (Legal) RxNorm: 0 Active Medication Administered No Medication Administered data Procedures Procedure Codes Date Improving Bladder Control CPT-4: IBC 2021 Monitoring Physical Activity CPT-4: MPA 07/2022 Pain Screening CPT-4: PAS 12/16/2021 Annual Wellness Visit (Subsequent Visit) CPT-4: G0439 12/16/2021 Fall Risk Assessment SNOMED CT: 84614847 4 CPT-4: DFRA 12/16/2021 Patient Health Questionnaire CPT-4: DPHQ Frailty Screening CPT-4: SFD 09/06/2021 Patient Health Questionnaire CPT-4: DPHQ 11/2020 Annual Wellness Visit (Subsequent Visit) CPT-4: G0439 12/16/2020 Tobacco Assessment/Screening CPT-4: TCA 07/2021 Patient Health Questionnaire CPT-4: DPHQ 07/2021 Advanced Care Planning CPT-4: VACP Hypertension CPT-4: HTN 10/27/2020 Fall Risk Assessment SNOMED CT: 63287167 4 CPT-4: DFRA 04/21/2020 Tobacco Assessment/Screening CPT-4: TCA Functional Assessment CPT-4: DFA 03/02/2020 Hypertension CPT-4: HTN 12/05/2019 Electrocardiogram CPT-4: 21645 12/05/2019 Tobacco Assessment/Screening CPT-4: TCA Urinalysis, dip stick CPT-4: 66660 12/05/2019 Elder Abuse Screening CPT-4: EAS 12/05/2019 Crete Nasim Assessment CPT-4: DSWA 11/07 External Mammogram CPT-4: EMAM Unknown Fecal Occult Blood Test (FOBT) Screening CPT-4: G0328 Unknown Fecal Occult Blood Test (FOBT) Screening CPT-4: G0328 Unknown Gynecology Referral SNOMED CT: 928287646 CPT-4: R14 Unknown External Mammogram CPT-4: EMAM Unknown W2J-Ezuoeaasjkrorhe CPT-4: 20384 Unknown Reason For Visit No Reason For Visit data Encounters Encounter Performer Location Location Address Codes [place] ([id number]) Other Reason/Patient not seen Diagnosis: Patient not seen[ICD10: UXZ.01] Frances Boswell [facility] [address] [place] [address] CPT-4: 02632 04/27/2022 Plan of Care Planned Activity Notes Codes Status Date Patient Education: Patient Medication Summary Completed 04/27/2022 Patient Education: Heart Disease Completed 04/27/2022 Appointment: Frances Boswell WPtel: [address] [place] [address] ETV 01/05/2022 Appointment: Nicanor Man WPtel: [address] [place] [address] [place] E410 12/16/2021 Appointment: Kevyn Valentin WPtel: [address] [place], [place] [id number] [place] E410 10/07/2021 Appointment: Nicanor Man WPtel: [address] [place] [address] E410 09/06/2021 Appointment: Frances Boswell WPtel: [address] [place] [address] [place] ETV 05/10/2021 Appointment: Frances Boswell WPtel: [address] [place] [address] [place] ETV 03/02/2021 Appointment: Naman Villarreal: [address] [place] [address] [place] RLOL 02/10/2021 Appointment: Frances Boswell WPtel: [address] [place] [address] [place] E410 02/03/2021 Appointment: Fabiola Madsen: [id number] [place] ECHO 01/26/2021 Appointment: Frances Boswell WPtel: [address] [place] [address] ETV 01/22/2021 Appointment: Frances Boswell WPtel: [address] [place] [address] [place] E410 12/16/2020 Appointment: Frances Boswell WPtel: [address] [place] [address] [place] ETV 10/27/2020 Appointment: Megan Coello: [address] [facility] [address] [id number] [place] MULT 10/08/2020 Appointment: Frances Boswell WPtel: [address] [place] [address] E410 10/07/2020 Appointment: Frances Boswell WPtel: [address] [place] [address] [place] ETV 09/11/2020 Appointment: Frances Boswell WPtel: [address] [place] [address] [place] ETV 07/24/2020 Appointment: Frances Boswell WPtel: [address] [place] [address] [place] ETV 06/26/2020 Appointment: Frances Boswell WPtel: [address] [place] [address] [place] ETV 05/15/2020 Appointment: Frances Boswell WPtel: [address] [place] [address] E410 04/21/2020 Appointment: Frances Boswell WPtel: [address] [place] [address] [place] E410 03/02/2020 Appointment: Frances Boswell WPtel: [address] [facility] [address] [facility] [place] E410 12/31/2019 Appointment: Erumallen Kevyn WPtel: [address] [facility] [address] [id number] [place] N410 12/05/2019 Referral: Pending Mental Health Services Referral Information Patient notified that it has been recommended that she be seen by Mental Health. Patient agreed to be seen and prefers to be seen close to home. Patient does not have any transportation issues. After trying multiple providers in the area, ad copy writer spoke with Caryl at [facility] who states that they are able to accept new patient's. Caryl asked that patient's referral and visit notes be faxed to [phone]. Pharmaceutical Engineer faxed over requested documents. Patient to call to schedule an appointment. Patient's referral confirmation letter mailed to her home address. Processed Referral: Pending Cardiology Referral Information Patient requesting to be seen by Cardiology. Patient denies any concerns with transportation, and prefers to schedule her own appointment. Pharmaceutical Engineer faxed over the patient's referral, most recent clinical notes, most recent echo and most recent EKG to F: . Patient to call to schedule her appointment. Appointment confirmation letter mailed to the patient's home address. CCDA completed. Initiated Referral: Pending Referral Source Referral Request CCDA Referral: Pending Nephrology Referral Information Patient requesting to be seen by a Propeller Driven Airplane Mechanic. Patient agreed to be seen and does not have a preferred provider. Patient denies any concerns with transportation. Pharmaceutical Engineer placed a call out to [facility] office at and confirmed that their office is able to accept new patients. Pharmaceutical Engineer faxed over the patient's referral, clinical [...] prefers a provider close to her home. Pharmaceutical Engineer placed a call out to [facility] P: , but was told by Won that their office is not able to accept new patients. Pharmaceutical Engineer then called [facility] and [facility] and spoke with Yusra who asked that the patient's referral, and clinical notes be faxed to . Pharmaceutical Engineer faxed over the requested documents. Patient to call to schedule her appointment. Appointment confirmation letter mailed to the patient's home address. CCDA completed. Processed Referral: Pending Cardiology Referral Information Patient notified that it has been advised that she be seen by a Mobile Lab Technician. Patient agreed to be seen and prefers to be seen by any provider that is close to her home. Patient denies any concerns with transportation, and prefers to schedule her own appointment. Pharmaceutical Engineer placed a call out to [facility] and spoke with Alvina P: who confirmed that their office is able to accept new patients and the patient's insurance. After confirming the providers fax number, ad copy writer faxed over the patient's referral, and [...] but prefers to stay close to home. Pharmaceutical Engineer placed a call out to [facility]stetric[facility] Gynecology Mikayla Enrique and confirmed that they are able to accept new patient's and the patient's insurance. Patient does not have any transportation issues. Pharmaceutical Engineer faxed over patient's referral and clinical [...] and prefers to schedule her own appointment. Pharmaceutical Engineer placed a call out to [facility] and spoke with Guadalupe P: who confirmed that their office is able to accept new patients and the patient's insurance. After confirming the providers fax number, ad copy writer faxed over the patient's referral, xrays, and most recent clinical notes to F: . Patient to call to schedule her appointment. Appointment confirmation letter mailed to the patient's home address. CCDA completed. Processed Medical Equipment No Medical Equipment data Advance Directives No Advance Directive data
--- OUTSIDE RECORDS SUMMARY | 2023-09-25 00:23 | XMS_ITS | CCD ---
Author Name Bess Boswell NP Address [address] [place] [address] [address] [place] [address] Phone Organization [facility] Phone Care Team Providers Care Director Public Name Role Phone Frances Boswell NP Primary Care Provider Unav ailable Unavailable Chronic Care Management Unavaila ble Summary Purpose DataExchange Insurance Providers Payer name Policy type / Coverage type Covered democrat ID Effective Begin Date Effective End Date BRENDAN ALFONSO [id number] Unknown Unknown Family history Father Diagnosis Age [...] Current Smoker 12/05/[address]: 825600315 Never drinks alco hol 12/05/2019 Allergies, Adverse Reactions, Alerts Substance Reaction Codes Entered Date Inactivated Date Status *No known drug allergies Unknown 12/05/2019 No I nactive Date Active Problems Condition Codes Effective Dates Condition St atus (F17.210-305.1) Nicotine dependence, cigarettes, uncomplicated ICD-10: F17.210 ICD-9: 305.1 03/08/2023 Active (Z12.11-V76.51) Encounter fo r screening for malignant neoplasm of colon ICD-10: Z12.11 ICD-9: V76.51 03/08/2023 Active (Z13.1-V77.1) Encounter for screening for diabetes mellitus ICD-10: Z13.1 ICD-9: V77.1 03/08/2023 Active Bipolar I disorder, most rec ent episode (or current) manic ICD-10: F31.10 ICD-9: 296.40 12/05/2019 Active CAD (coronary artery disease) ICD-10: I2 5.10 ICD-9: 414.00 10/07/2021 Active Cat bite of hand ICD-10: S61.459A ICD-9: 882.0 01/05/2022 Active COPD (chronic obstructive pu lmonary disease) ICD-10: J44.9 ICD-9: 496 12/05/2019 Active Encounter for screening ICD-10: Z13.9 ICD-9: V82.9 03/08/2023 Active Hyperlipidemia ICD-10: E78.5 ICD-9: 272.4 10/07/2021 Active Tinea cruris ICD-10: B35.6 ICD-9: 110.3 01/12/2022 Active Vitamin D deficiency ICD-10: E55.9 ICD-9: 268.9 12/07/2019 Active Patient not seen ICD-10: UXZ.01 ICD-9: UXZ.01 04/27/2022 Active Bitten by cat, initial encounter ICD-10: W55.01XA 08/2021 Active (Z00.00-V70.9) Encounter for general adult medical examination without abnormal findings ICD-10: Z00.00 ICD-9: V70.9 12/16/2021 Active (Z12.31-V76.12) Encounter fo r screening mammogram for malignant neoplasm of breast ICD-10: Z12.31 ICD-9: V76.12 12/16/2021 Active Elevated blood pressure reading ICD-10: R03.0 ICD-9: 796.2 10/07/2021 Active Tobacco abuse ICD-10: Z72.0 ICD-9: 305.1 12/05/2019 Active Obsessive-compulsive disorder ICD-10: F4 2.9 ICD-9: 300.3 12/05/2019 Active (Z00.01-V70.0) Encounter for general adult medical examination with abnormal findings ICD-10: Z00.01 ICD-9: V70.0 12/16/2020 Resolved (Z12.4-V76.2) Encounter for screening for malignant neoplasm of cervix ICD-10: Z12.4 ICD-9: V76.2 03/02/2020 Resolved Cannabis use without complication ICD-10 : F12.90 ICD-9: 305.20 12/05/2019 Resolved Chest pain in adult ICD-10: R07.9 ICD-9: 786.50 01/22/2021 Resolved Cough ICD-10: R05 ICD-9: 786.2 10/07/2020 Resolved Status post fracture of tibia ICD-10: [...] D3) 50 mcg (2,000 unit) tablet RxNorm: 527327 TAKE 1 TABLET BY MOUTH EVERY DAY 03/08/20 023 Inactive clotrimazole 1 % topical cream RxNorm: 922733 Apply 1 Application Topical two times a day as needed apply to affected area(s) twice daily until healed 03/08/20 023 Inactive Daily-Davion tablet RxNorm: Take 1 Tablet( s) Oral every day 03/08/20 023 Inactive Spiriva Respimat 2.5 mcg/actuation solution for inhalation RxNorm: 3228979 2 Puff(s) Inhalation every day at the same time each day 03/08/20 023 Inactive Spiriva Respimat 2.5 mcg/actuation solution for inhalation RxNorm: 8667827 2 Puff(s) Inhalation every day at the same time each day 03/08/20 023 Inactive cholecalciferol (vitamin D3) 50 mcg (2,000 unit) tablet RxNorm: 359390 TAKE 1 TABLET BY MOUTH EVERY DAY 01/27/20 022 Inactive Daily-Davion tablet RxNorm: Take 1 Tablet( s) Oral every day 01/25/20 022 Inactive clotrimazole 1 % topical cream RxNorm: 252014 Apply 1 Application Topical two times a day as needed apply to affected area(s) twice daily until healed 01/13/20 023 Inactive hydrocortisone 1 % lotion RxNorm: 801498 Take 2 Gram(s) Topical every day 12/17/19 022 Inactive Daily-Davion tablet RxNorm: Take 1 Tablet( s) Oral every day 07/29/20 021 Inactive Daily Vitamin Formula tablet RxNorm: 1 Tablet(s) Oral every day 02/03/20 21 021 Inactive cholecalciferol (vitamin D3) 50 mcg (2,000 unit) tablet RxNorm: 204012 TAKE 1 TABLET BY MOUTH EVERY DAY 12/29/19 021 Inactive Daily Vitamin Formula tablet RxNorm: 1 Tablet(s) Oral every day 05/15/20 20 021 Inactive cholecalciferol (vitamin D3) 2,000 unit tablet RxNorm: 753897 1 Tablet(s) Oral every day 12/07/19 20 021 Inactive Marijuana (Legal) RxNorm: 12/05/19 20 Active Medication Administered No Medication Administered data Results Observation Observation Code Item Item Code Result Date Service Location COMPLETE CBC W/ DIFF WBC 92039 WBC 6690-2 11.2 K/ul 023 [facility] [address] [place] [address] COMPLETE CBC W/ DIFF WBC 92216 RBC 789-8 4.72 M/uL 023 [facility] [address] [place] [address] COMPLETE CBC W/ DIFF WBC 08951 Hemoglobin 718-7 15.8 g/dL 023 [facility] [address] [place] [address] COMPLETE CBC W/ DIFF WBC 65782 Hematocrit 4544-3 47.0 % 023 [facility] [address] [place] [address] COMPLETE CBC W/ DIFF WBC 49713 MCV 787-2 99.6 fL 023 [facility] [address] [place] [address] COMPLETE CBC W/ DIFF WBC 27783 MCH 785-6 33.6 pg 023 [facility] [address] [place] [address] COMPLETE CBC W/ DIFF WBC 49747 MCHC 786-4 33.7 g/dL 023 [facility] [address] [place] [address] COMPLETE CBC W/ DIFF WBC 54781 RDW 788-0 14.9 % 023 [facility] [address] [place] [address] 794[address] COMPLETE CBC W/ DIFF WBC 39144 Platelet Count 777-3 388 K/uL 023 [facility] [address] [place] [address] 84353 COMPLETE CBC W/ DIFF WBC 15768 MPV 66811-5 9.5 fL 023 [facility] [address] [place] [address] 06175 COMPLETE CBC W/ DIFF WBC 13511 Neutrophils % 770-8 66.6 % 023 [facility] [address] [place] [address] 16302 COMPLETE CBC W/ DIFF WBC 02995 Lymphocytes % 736-9 26.3 % 023 [facility] [address] [place] [address] 79033 COMPLETE CBC W/ DIFF WBC 25723 Monocytes % 5905-5 5.8 % 023 [facility] [address] [place] [address] 78986 COMPLETE CBC W/ DIFF WBC 51181 Eosinophils % 713-8 0.2 % 023 [facility] [address] [place] [address] 02306 COMPLETE CBC W/ DIFF WBC 66401 Basophils% 706-2 1.1 % 023 [facility] [address] [place] [address] 48782 COMPLETE CBC W/ DIFF WBC 02074 Absolute Neutrophil 751-8 7459 /ul 023 [facility] [address] [place] [address] 02223 COMPLETE CBC W/ DIFF WBC 76848 Absolute Lymphocyte 08545-7 2946 /ul 023 [facility] [address] [place] [address] COMPLETE CBC W/ DIFF WBC 40625 Absolute Monocyte 742-7 650 /ul 023 [facility] [address] [place] [address] COMPLETE CBC W/ DIFF WBC 78719 Absolute Eosinophil 711-2 22 /ul 023 [facility] [address] [place] [address] COMPLETE CBC W/ DIFF WBC 24744 Absolute Basophil 704-7 123 /ul 023 [facility] [address] [place] [address] VITAMIN D 82090 Vitamin D 69523-5 72.9 ng/mL 023 [facility] [address] [place] [address] HDL - CHOL 93752 HDL 2085-9 84 mg/dL 023 [facility] [address] [place] [address] HDL - CHOL 57520 CHD 97700-9 41 % 023 [facility] [address] [place] [address] TRIGLYCERIDES 32710 Triglycerides 2571-8 115 mg/dL 023 [facility] [address] [place] [address] TRIGLYCERIDES 77317 VLDL 25422-9 23 mg/dL 023 [facility] [address] [place] [address]2543 CHEM 14 (METABOLIC PANEL) 07192 Glucose 2345-7 98 mg/dL 023 [facility] [address] [place] [address] 83833 CHEM 14 (METABOLIC PANEL) 60426 BUN 3094-0 12 mg/dL 023 [facility] [address] [place] [address] 38599 CHEM 14 (METABOLIC PANEL) 78524 Creatinine 2160-0 1.3 mg/dL 023 [facility] [address] [place] [address] 94390 CHEM 14 (METABOLIC PANEL) 35725 BUN/Creat Ratio 3097-3 9.3 023 [facility] [address] [place] [address] 11232 CHEM 14 (METABOLIC PANEL) 27993 GFR Estimated 03091-2 50 mL/min/1. 73m2 023 [facility] [address] [place], [place] [address] CHEM 14 (METABOLIC PANEL) 26449 Sodium 2951-2 139 mmol/L 023 [facility] [address] [place] [address] CHEM 14 (METABOLIC PANEL) 14673 Potassium 2823-3 4.7 mmol/L 023 [facility] [address] [place] [address] CHEM 14 (METABOLIC PANEL) 26396 Chloride 2075-0 103 mmol/L 023 [facility] [address] [place] [address] CHEM 14 (METABOLIC PANEL) 13942 Total CO2 2028-9 27 mmol/L 023 [facility] [address] [place] [address] CHEM 14 (METABOLIC PANEL) 86270 Anion Gap 1863-0 13.7 mEq/L 023 [facility] [address] [place] [address] CHEM 14 (METABOLIC PANEL) 46632 Calculated Serum Osmolality 36954-1 288 mOsm/kg 023 [facility] [address] [place] [address] 75686 CHEM 14 (METABOLIC PANEL) 15930 Albumin 85467-9 4.6 g/dL 023 [facility] [address] [place] [address] 01455 CHEM 14 (METABOLIC PANEL) 98788 Total Protein 2885-2 7.7 g/dL 023 [facility] [address] [place] [address] 76020 CHEM 14 (METABOLIC PANEL) 34106 Globulin 2336-6 3.1 g/dL 023 [facility] [address] [place] [address] CHEM 14 (METABOLIC PANEL) 26016 Albumin/Globulin Ratio 1759-0 1.5 023 [facility] [address] [place] [address] 57820 CHEM 14 (METABOLIC PANEL) 54646 ALK PHOS 6768-6 83.00 U/L 023 [facility] [address] [place] [address] CHEM 14 (METABOLIC PANEL) 92273 SGOT/AST 1920-8 23 U/L 023 [facility] [address] [place] [address] CHEM 14 (METABOLIC PANEL) 01605 SGPT/ALT 1743-4 22 U/L 023 [facility] [address] [place] [address] CHEM 14 (METABOLIC PANEL) 29085 Total Bilirubin 1975-2 0.5 mg/dL 023 [facility] [address] [place] [address] CHEM 14 (METABOLIC PANEL) 78958 Calcium 37262-4 10.0 mg/dL 023 [facility] [address] [place] [address] CHEM 14 (METABOLIC PANEL) 75037 Corrected Calcium 33583-5 9.7 mg/dL 03/09 023 [facility] [address] [place] [address] DIRECT LDL - CHOL 74879 LDL-Direct 48165-6 102 mg/dL 0 023 [facility] [address] [place] [address] PREALBUMIN 21708 Prealbumin 93214-8 26 mg/dL 023 [facility] [address] [place] [address] CHOLESTEROL 39298 Cholesterol 2093-3 206 mg/dL 023 [facility] [address] [place] [address] Procedures Procedure Codes Date Improving Bladder Control CPT-4: IBC 2022 Monitoring Physical Activity CPT-4: MPA 09/2022 Pain Screening CPT-4: PAS 03/08/2023 Tobacco Assessment/Screening CPT-4: TCA 09/2022 Patient Health Questionnaire CPT-4: DPHQ 09/2022 Fall Risk Assessment CPT-4: DFRA 03/08/2023 Improving Bladder Control Have you had urine leakage in the past 6 months?/No CPT-4: IBCUnknown Monitoring Physical Activity Do you exercise daily?/Yes (plan required)/Continued exercise or physical activity at current level recommended CPT-4: MPAUnknown 03/08/2023 Tobacco Assessment/Screening Tobacco Use/Current user of tobacco (Complete cessation counseling)/Cessation advice and [phone] number given, Tobacco Use/Current user of tobacco (Complete cessation counseling)/Motivational interviewing CPT-4: TCAUnknown 03/08/2023 Smoking and tobacco use cess ation counseling visit 3-10 minutes Tobacco counseling 3-10 minutes:/Patient is competent and alert, Plan:/Cessation advice and [id number] number given, Plan:/Motivational interviewing CPT-4: 26093Inbuqji 03/08/20 23 Fall Risk Assessment Any problems with balance or walking?/No, Has there been a fall with injury in the last year?/No, Two or more falls in the past year?/No, Plan:/Monitor gait and balance PRN, no current action needed CPT-4: DFRAUnknown 03/08/2023 Pain Screening Do you suffer from any painful conditions?/No CPT-4: PASUnknoalexn 03/08/20 23 Patient Health Questionnaire Little interest or pleasure in doing things?/0 = Not at all, Feeling down, depressed or hopeless?/0 = Not at all, Trouble falling or staying asleep, or sleeping [...] for depression- NO PLAN NEEDED CPT-4: DPHQUnknown 03/08/2023 Improving Bladder Control CPT-4: IBC 2021 Monitoring Physical Activity CPT-4: MPA 07/2022 Pain Screening CPT-4: PAS 12/16/2021 Annual Wellness Visit (Subsequent Visit) CPT-4: G0439 12/16/2021 Fall Risk Assessment SNOMED CT: 05024193 4 CPT-4: DFRA 12/16/2021 Patient Health Questionnaire CPT-4: DPHQ Frailty Screening CPT-4: SFD 09/06/2021 Patient Health Questionnaire CPT-4: DPHQ 11/2020 Annual Wellness Visit (Subsequent Visit) CPT-4: G0439 12/16/2020 Tobacco Assessment/Screening CPT-4: TCA 07/2021 Patient Health Questionnaire CPT-4: DPHQ 07/2021 Advanced Care Planning CPT-4: VACP Hypertension CPT-4: HTN 10/27/2020 Fall Risk Assessment SNOMED CT: 34580751 4 CPT-4: DFRA 04/21/2020 Tobacco Assessment/Screening CPT-4: TCA Functional Assessment CPT-4: DFA 03/02/2020 Hypertension CPT-4: HTN 12/05/2019 Electrocardiogram CPT-4: 57484 12/05/2019 Tobacco Assessment/Screening CPT-4: TCA Urinalysis, dip stick CPT-4: 54137 12/05/2019 Elder Abuse Screening CPT-4: EAS 12/05/2019 [place] Nasim Assessment CPT-4: DSWA 11/07 External Mammogram CPT-4: EMAM Unknown Fecal Occult Blood Test (FOBT) Screening CPT-4: G0328 Unknown Fecal Occult Blood Test (FOBT) Screening CPT-4: G0328 Unknown Gynecology Referral SNOMED CT: 213075896 CPT-4: R14 Unknown External Mammogram CPT-4: EMAM Unknown P4E-Mpzvatxweflanva CPT-4: 46441 Unknown Vital Signs Date Vital 03/08/2023 Blood Pressure 1: 140/86 Code: 8480-6 BMI: 21.6 Code: 50678-4 Heart Rate 1: 98 bpm Height: 5'7 Code: 8302-2 Respiratory Rate: 16 bpm SpO2: 98% Temperature: 36.6 (C) / 97.9 (F) Weight: 138 lbs 3 oz Code: 26290-1 Reason For Visit Reason For Visit Effective Dates Notes bipolar disorder 03/08/2023 CAD 03/08/2023 hyperlipidemia disease 03/08/2023 Interim health update 03/08/2023 Encounters Encounter Performer Location Location Address Codes [place] ([id number]) Home or Residence Visit Est Pt - Moderate Level, 40 mins Diagnosis: CAD (coronary artery disease)[ICD10: I25.10] Diagnosis: Hyperlipidemia[ICD 10: E78.5] Diagnosis: COPD (chronic obstructive pulmonary disease)[ICD10: J44.9] Diagnosis: (F17.210-305.1) Nicotine dependence, cigarettes, uncomplicated[ICD1 0: F17.210] Diagnosis: Bipolar I disorder, most recent episode (or current) manic[ICD10: F31.10] Diagnosis: Cat bite of hand[ICD10: S61.459A] Diagnosis: Tinea cruris[ICD10: B35.6] Diagnosis: Encounter for screening[ICD10: Z13.9] Diagnosis: (Z13.1-V77.1) Encounter for screening for diabetes mellitus[ICD10: Z13.1] Diagnosis: (Z12.11-V76.51) Encounter for screening for malignant neoplasm of colon[ICD10: Z12.11] Diagnosis: Vitamin D deficiency[ICD10: E55.9] Frances Elbert Morton Office [id number] [place] [address] [address] [id number] CPT-4: 47296 03/08/2023 Plan of Care Planned Activity Notes Codes Status Date Visit Plan: I25.10-414.00 CAD (c oronary artery disease) (hx of AR, routine cardiology follow up, resistant to medications, labs ordered) E78.5-272.4 Hyperlipidemia (chronic, refuses statin, will check lipids, ) J44.9-496 COPD (chronic obstructive pulmonary disease) F17.210-305.1 (F17.210-305.1) Nicotine dependence, cigarettes, uncomplicated (breathing stable, continues with spiriva, labs ordered) (smoking cessation encouraged) F31.10-296.40 Bipolar I disorder, most recent episode (or current) manic (denies depression, feels mood stable) S61.459A-882.0 Cat bite of hand (bit by cat on left hand yesterday, no open areas, remains without infection) B35.6-110.3 Tinea cruris (refill of clotrimizole sent to pharmacy) Z13.9-V82.9 Encounter for screening (Pain, Physical Activity, and FRA completed) Z13.1-V77.1 (Z13.1-V77.1) Encounter for screening for diabetes mellitus (will check hemoglobin A1C) Z12.11-V76.51 (Z12.11-V76.51) Encounter for screening for malignant neoplasm of colon (FOBT left with patient) E55.9-268.9 Vitamin D deficiency (continue supplementation, will check Vitamin D level) 03/08/2023 Patient Education: Patient Medication Summary Completed 03/08/2023 Patient Education: Heart Disease Completed 03/08/2023 Appointment: Frances Boswell WPtel: [address] [place] [address] [place] ETV 01/05/2022 Appointment: Nicanor Man WPtel: [address] [place] [address] [place] E410 12/16/2021 Appointment: Kevyn Valentin WPtel: [facility] [place] [place] E410 10/07/2021 Appointment: Nicanor Man WPtel: [address] [place] [address] E410 09/06/2021 Appointment: Frances Boswell WPtel: [address] [place] [address] ETV 05/10/2021 Appointment: Frances Boswell WPtel: [address] [place] [address] ETV 03/02/2021 Appointment: Naman Villarreal: [address] [place] [address] [place] RLOL 02/10/2021 Appointment: Frances Boswell WPtel: [address] [place] [address] E410 02/03/2021 Appointment: Fabiola Madsen MCtparis: [address] [place] ECHO 01/26/2021 Appointment: Frances Boswell WPtel: [address] [place] [address] [place] ETV 01/22/2021 Appointment: Frances Boswell WPtel: [address] [place] [address] E410 12/16/2020 Appointment: Frances Boswell WPtel: [address] [place] [address] ETV 10/27/2020 Appointment: Megan Coello: [address] [facility] [place] MULT 10/08/2020 Appointment: Frances Boswell WPtel: [id number] [place] [address] [place] E410 10/07/2020 Appointment: Frances Boswell WPtel: [address] [place] [address] [place] ETV 09/11/2020 Appointment: Frances Boswell WPtel: [address] [place] [address] [place] ETV 07/24/2020 Appointment: Frances Boswell WPtel: [address] [place] [address] [place] ETV 06/26/2020 Appointment: Frances Boswell WPtel: [address] [place] [address] [place] ETV 05/15/2020 Appointment: Frances Boswell WPtel: [address] [place] [address] E410 04/21/2020 Appointment: Frances Boswell WPtel: [address] [place] [address] [place] E410 03/02/2020 Appointment: Frances Boswell WPtel: [address] [place] [address] [place] E410 12/31/2019 Appointment: Kevyn Valentin WPtel: [facility] [address] [id number] [place] N410 12/05/2019 Referral: Pending Mental Health Services Referral Information Patient notified that it has been recommended that she be seen by Mental Health. Patient agreed to be seen and prefers to be seen close to home. Patient does not have any transportation issues. After trying multiple providers in the area, feature writer spoke with Caryl at [facility] who states that they are able to accept new patient's. Caryl asked that patient's referral and visit notes be faxed to [phone]. Child Care faxed over requested documents. Patient to call to schedule an appointment. Patient's referral confirmation letter mailed to her home address. Processed Referral: Pending Cardiology Referral Information Patient requesting to be seen by Cardiology. Patient denies any concerns with transportation, and prefers to schedule her own appointment. Child Care faxed over the patient's referral, most recent clinical notes, most recent echo and most recent EKG to F: . Patient to call to schedule her appointment. Appointment confirmation letter mailed to the patient's home address. CCDA completed. Initiated Referral: Pending Referral Source Referral Request CCDA Referral: Pending Nephrology Referral Information Patient requesting to be seen by a Head Of Digital Advertising & Integration. Patient agreed to be seen and does not have a preferred provider. Patient denies any concerns with transportation. Child Care placed a call out to [facility] office at and confirmed that their office is able to accept new patients. Child Care faxed over the patient's referral, clinical notes, [...] prefers a provider close to her home. Child Care placed a call out to [facility] P: , but was told by Won that their office is not able to accept new patients. Child Care then called [facility] and spoke with Yusra who asked that the patient's referral, and clinical notes be faxed to . Child Care faxed over the requested documents. Patient to call to schedule her appointment. Appointment confirmation letter mailed to the patient's home address. CCDA completed. Processed Referral: Pending Cardiology Referral Information Patient notified that it has been advised that she be seen by a Batter Mixer Helper. Patient agreed to be seen and prefers to be seen by any provider that is close to her home. Patient denies any concerns with transportation, and prefers to schedule her own appointment. Child Care placed a call out to [facility] and spoke with Alvina P: who confirmed that their office is able to accept new patients and the patient's insurance. After confirming the providers fax number, feature writer faxed over the patient's referral, and [...] but prefers to stay close to home. Child Care placed a call out to [facility] and confirmed that they are able to accept new patient's and the patient's insurance. Patient does not have any transportation issues. Child Care faxed over patient's referral and clinical notes [...] and prefers to schedule her own appointment. Child Care placed a call out to [facility] and spoke with Guadalupe P: who confirmed that their office is able to accept new patients and the patient's insurance. After confirming the providers fax number, feature writer faxed over the patient's referral, xrays, and most recent clinical notes to F: . Patient to call to schedule her appointment. Appointment confirmation letter mailed to the patient's home address. CCDA completed. Processed Instructions Comment Date . I25.10-414.00 CAD (coronary artery disease) (hx of AR, routine cardiology follow up, resistant to medications, labs ordered) E78.5-272.4 Hyperlipidemia (chronic, refuses statin, will check lipids, ) J44.9-496 COPD (chronic obstructive pulmonary disease); F17.210-305.1 (F17.210-305.1) Nicotine dependence, cigarettes, uncomplicated (breathing stable, continues with spiriva, labs ordered) (smoking cessation encouraged) F31.10-296.40 Bipolar I disorder, most recent episode (or current) manic (denies depression, feels mood stable) S61.459A-882.0 Cat bite of hand (bit by cat on left hand yesterday, no open areas, remains without infection) B35.6-110.3 Tinea cruris (refill of clotrimizole sent to pharmacy) Z13.9-V82.9 Encounter for screening (Pain, Physical Activity, and FRA completed) Z13.1-V77.1 (Z13.1-V77.1) Encounter for screening for diabetes mellitus (will check hemoglobin A1C) Z12.11-V76.51 (Z12.11-V76.51) Encounter for screening for malignant neoplasm of colon (FOBT left with patient) E55.9-268.9 Vitamin D deficiency (continue supplementation, will check Vitamin D level) 03/08/2023 Medical Equipment No Medical Equipment data Advance Directives No Advance Directive data
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
--- OUTSIDE RECORDS SUMMARY | 2023-09-25 00:24 | XMS_ITS | CCD ---
Author Name Bess Boswell NP Address [address] [place] [address] [address] [place] [address] Phone Organization [facility] Phone Care Team Providers Care Transferrer Name Role Phone Frances Boswell NP Primary Care Provider Unav ailable Unavailable Chronic Care Management Unavaila ble Summary Purpose DataExchange Insurance Providers Payer name Policy type / Coverage type Covered constitution party ID Effective Begin Date Effective End Date BRENDAN ALFONSO [id number] Unknown Unknown Family history Father Diagnosis Age [...] Current Smoker 12/05/[address]: 805656187 Never drinks alco hol 12/05/2019 Allergies, Adverse Reactions, Alerts Substance Reaction Codes Entered Date Inactivated Date Status *No known drug allergies Unknown 12/05/2019 No I nactive Date Active Problems Condition Codes Effective Dates Condition St atus CAD (coronary artery disease) ICD-10: I2 5.10 ICD-9: 414.00 10/07/2021 Active (F17.210-305.1) Nicotine dependence, cigarettes, uncomplicated ICD-10: F17.210 ICD-9: 305.1 03/08/2023 Active (Z12.11-V76.51) Encounter fo r screening for malignant neoplasm of colon ICD-10: Z12.11 ICD-9: V76.51 03/08/2023 Active Alcohol abuse ICD-10: F10.10 ICD-9: 305.00 04/28/2023 Active Anorexia ICD-10: R63.0 ICD-9: 783.0 04/28/2023 Active Bipolar I disorder, most rec ent episode (or current) manic ICD-10: F31.10 ICD-9: 296.40 12/05/2019 Active COPD (chronic obstructive pu lmonary disease) ICD-10: J44.9 ICD-9: 496 12/05/2019 Active Encounter for general adult medical examination with abnormal findings ICD-10: Z00.01 ICD-9: V70.0 04/28/2023 Active History of heart attack ICD-10: I25.2 ICD-9: 412 12/05/2019 Active Stage 3a chronic kidney dise ase (CKD) ICD-10: N18.31 ICD-9: 585.3 03/23/2023 Active (Z13.1-V77.1) Encounter for screening for diabetes mellitus ICD-10: Z13.1 ICD-9: V77.1 03/08/2023 Active Cat bite of hand ICD-10: S61.459A ICD-9: 882.0 01/05/2022 Active Encounter for screening ICD-10: Z13.9 ICD-9: [...] ICD-10: F4 2.9 ICD-9: 300.3 12/05/2019 Active (Z12.4-V76.2) Encounter for screening for malignant [...] D3) 50 mcg (2,000 unit) tablet RxNorm: 774527 TAKE 1 TABLET BY MOUTH EVERY DAY 03/08/20 023 Inactive Daily-Davion tablet RxNorm: Take 1 Tablet( s) Oral every day 03/08/20 023 Inactive Spiriva Respimat 2.5 mcg/actuation solution for inhalation RxNorm: 7115937 2 Puff(s) Inhalation every day at the same time each day 03/08/20 023 Inactive clotrimazole 1 % topical cream RxNorm: 781139 Apply 1 Application Topical two times a day as needed apply to affected area(s) twice daily until healed 03/08/20 023 Inactive Spiriva Respimat 2.5 mcg/actuation solution for inhalation RxNorm: 8354674 2 Puff(s) Inhalation every day at the same time each day 03/08/20 023 Inactive cholecalciferol (vitamin D3) 50 mcg (2,000 unit) tablet RxNorm: 692930 TAKE 1 TABLET BY MOUTH EVERY DAY 01/27/20 022 Inactive Daily-Davion tablet RxNorm: Take 1 Tablet( s) Oral every day 01/25/20 022 Inactive clotrimazole 1 % topical cream RxNorm: 231525 Apply 1 Application Topical two times a day as needed apply to affected area(s) twice daily until healed 01/13/20 023 Inactive hydrocortisone 1 % lotion RxNorm: 722762 Take 2 Gram(s) Topical every day 12/17/19 022 Inactive Daily-Davion tablet RxNorm: Take 1 Tablet( s) Oral every day 07/29/20 021 Inactive Daily Vitamin Formula tablet RxNorm: 1 Tablet(s) Oral every day 02/03/20 021 Inactive cholecalciferol (vitamin D3) 50 mcg (2,000 unit) tablet RxNorm: 855656 TAKE 1 TABLET BY MOUTH EVERY DAY 12/29/19 021 Inactive Daily Vitamin Formula tablet RxNorm: 1 Tablet(s) Oral every day 05/15/20 021 Inactive cholecalciferol (vitamin D3) 2,000 unit tablet RxNorm: 857530 1 Tablet(s) Oral every day 12/07/19 20 021 Inactive Marijuana (Legal) RxNorm: 12/05/19 20 Active Medication Administered No Medication Administered data Procedures Procedure Codes Date Smoking and tobacco use cess ation counseling visit > 10 MIN CPT-4: 38712 04/28/2023 Electrocardiogram CPT-4: 99702 04/28/2023 Annual Wellness Visit (Subsequent Visit) CPT-4: G0439 04/28/2023 Advance Care Planning discussed and documented C PT-4: 1123F 04/28/2023 Improving Bladder Control CPT-4: IBC 2022 Monitoring [...] G0439 12/16/2021 Fall Risk Assessment SNOMED CT: 29829230 4 CPT-4: DFRA 12/16/2021 Patient Health Questionnaire CPT-4: DPHQ Frailty Screening CPT-4: SFD 09/06/2021 Patient Health Questionnaire CPT-4: DPHQ 11/2020 Annual Wellness Visit (Subsequent Visit) CPT-4: G0439 12/16/2020 Tobacco Assessment/Screening CPT-4: TCA 07/2021 Patient Health Questionnaire CPT-4: DPHQ 07/2021 Advanced Care Planning CPT-4: VACP Hypertension CPT-4: HTN 10/27/2020 Fall Risk Assessment SNOMED CT: 51289259 4 CPT-4: DFRA 04/21/2020 Tobacco Assessment/Screening CPT-4: TCA Functional Assessment CPT-4: DFA 03/02/2020 Hypertension CPT-4: HTN 12/05/2019 Electrocardiogram CPT-4: 83038 12/05/2019 Tobacco Assessment/Screening CPT-4: TCA Urinalysis, dip stick CPT-4: 08336 12/05/2019 Elder Abuse Screening CPT-4: EAS 12/05/2019 [place] Nasim Assessment CPT-4: DSWA 11/07 External Mammogram CPT-4: EMAM Unknown Fecal Occult Blood Test (FOBT) Screening CPT-4: G0328 Unknown Fecal Occult Blood Test (FOBT) Screening CPT-4: G0328 Unknown Gynecology Referral SNOMED CT: 061466293 CPT-4: R14 Unknown External Mammogram CPT-4: EMAM Unknown [id number] CPT-4: 14411 Unknown Fecal Occult Blood Test (FOBT) Screening CPT-4: G0328 Unknown Reason For Visit No Reason For Visit data Plan of Care Planned Activity Notes Codes Status Date Patient Education: Patient Medication Summary Completed 05/01/2023 Care Plan: External Echocardiography Ordered 05/01/2023 Appointment: Frances Boswell WPtel: [address] [place] [address] E410 04/28/2023 Appointment: Frances Boswell WPtel: [address] [place] [address] E410 03/08/2023 Appointment: Frances Boswell WPtel: [address] [place] [address] ETV 01/05/2022 Appointment: Nicanor Man WPtel: [address] [place] [address] E410 12/16/2021 Appointment: Kevyn Valentin WPtel: [address] [facility] [address] [id number] [place] E410 10/07/2021 Appointment: Nicanor Man WPtel: [address] [place] [address] E410 09/06/2021 Appointment: Frances Boswell WPtel: [address] [place] [address] ETV 05/10/2021 Appointment: Frances Boswell WPtel: [address] [place] [address] ETV 03/02/2021 Appointment: Naman Villarreal: [address] [place] [address] RLOL 02/10/2021 Appointment: Frances Boswell WPtel: [address] [place] [address] [place] E410 02/03/2021 Appointment: Fabiola Madsen: [id number] [place] ECHO 01/26/2021 Appointment: Frances Boswell WPtel: [address] [place] [address] [place] ETV 01/22/2021 Appointment: Frances Boswell WPtel: [address] [place] [address] [place] E410 12/16/2020 Appointment: Frances Boswell WPtel: [address] [place] [address] [place] ETV 10/27/2020 Appointment: Megan Coello: [address] [facility] [address] [facility] [place] MULT 10/08/2020 Appointment: Frances Boswell WPtel: [address] [place] [address] [place] E410 10/07/2020 Appointment: Frances Boswell WPtel: [address] [place] [address] [place] ETV 09/11/2020 Appointment: Frances Boswell WPtel: [address] [place] [address] [place] ETV 07/24/2020 Appointment: Frances Boswell WPtel: [address] [place] [address] [place] ETV 06/26/2020 Appointment: Frances Boswell WPtel: [address] [place] [address] [place] ETV 05/15/2020 Appointment: Frances Boswell WPtel: [address] [place] [address] [place] E410 04/21/2020 Appointment: Frances Boswell WPtel: [address] [facility] [address] [facility] [place] E410 03/02/2020 Appointment: Frances Boswell WPtel: [address] [facility] [address] [facility] [place] E410 12/31/2019 Appointment: MasoudgeenaKevyn villa WPtel: [address] [facility] [address] NsyldzLE[address] [place] N410 12/05/2019 Referral: Pending Mental Health Services Referral Information Patient notified that it has been recommended that she be seen by Mental Health. Patient agreed to be seen and prefers to be seen close to home. Patient does not have any transportation issues. After trying multiple providers in the area, sign writer hand spoke with Caryl at [facility] who states that they are able to accept new patient's. Caryl asked that patient's referral and visit notes be faxed to [phone]. Shopfitter faxed over requested documents. Patient to call to schedule an appointment. Patient's referral confirmation letter mailed to her home address. Processed Referral: Pending Cardiology Referral Information Patient requesting to be seen by Cardiology. Patient denies any concerns with transportation, and prefers to schedule her own appointment. Shopfitter faxed over the patient's referral, most recent clinical notes, most recent echo and most recent EKG to F: . Patient to call to schedule her appointment. Appointment confirmation letter mailed to the patient's home address. CCDA completed. Initiated Referral: Pending Referral Source Referral Request CCDA Referral: Pending Nephrology Referral Information Patient requesting to be seen by a Medical Orderly. Patient agreed to be seen and does not have a preferred provider. Patient denies any concerns with transportation. Shopfitter placed a call out to [facility] Nephrology office at and confirmed that their office is able to accept new patients. Shopfitter faxed over the patient's referral, clinical notes, [...] prefers a provider close to her home. Shopfitter placed a call out to [facility] P: , but was told by Won that their office is not able to accept new patients. Shopfitter then called [facility] and [facility] and spoke with Yusra who asked that the patient's referral, and clinical notes be faxed to . Shopfitter faxed over the requested documents. Patient to call to schedule her appointment. Appointment confirmation letter mailed to the patient's home address. CCDA completed. Processed Referral: Pending Cardiology Referral Information Patient notified that it has been advised that she be seen by a Elastic Attacher Overlock. Patient agreed to be seen and prefers to be seen by any provider that is close to her home. Patient denies any concerns with transportation, and prefers to schedule her own appointment. Shopfitter placed a call out to [facility] and spoke with Alvina P: who confirmed that their office is able to accept new patients and the patient's insurance. After confirming the providers fax number, sign writer hand faxed over the patient's referral, and most [...] but prefers to stay close to home. Shopfitter placed a call out to [facility] Obstetric[facility] Gynecology Mikayla Enrique and confirmed that they are able to accept new patient's and the patient's insurance. Patient does not have any transportation issues. Shopfitter faxed over patient's referral and clinical notes [...] and prefers to schedule her own appointment. Shopfitter placed a call out to [facility] Orthopaedics and spoke with Guadalupe P: who confirmed that their office is able to accept new patients and the patient's insurance. After confirming the providers fax number, sign writer hand faxed over the patient's referral, xrays, and most recent clinical notes to F: . Patient to call to schedule her appointment. Appointment confirmation letter mailed to the patient's home address. CCDA completed. Processed Medical Equipment No Medical Equipment data Advance Directives No Advance Directive data
--- OUTSIDE RECORDS SUMMARY | 2023-09-25 00:24 | XMS_ITS | CCD ---
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 Name Role Phone Frances Boswell NP Primary Care Provider Unav ailable Unavailable Chronic Care Management Unavaila ble Summary Purpose DataExchange Insurance Providers Payer name Policy type / Coverage type Covered alliance party ID Effective Begin Date Effective End Date BRENDAN ALFONSO [id number] Unknown Unknown Family history Father Diagnosis Age [...] Current Smoker 12/05/[address]: 258138425 Never drinks alco hol 12/05/2019 Allergies, Adverse [...] D3) 50 mcg (2,000 unit) tablet RxNorm: 891459 TAKE 1 TABLET BY MOUTH EVERY DAY 03/08/20 023 Inactive Daily-Davion tablet RxNorm: Take 1 Tablet( s) Oral every day 03/08/20 023 Inactive Spiriva Respimat 2.5 mcg/actuation solution for inhalation RxNorm: 0017737 2 Puff(s) Inhalation every day at the same time each day 03/08/20 023 Inactive clotrimazole 1 % topical cream RxNorm: 067350 Apply 1 Application Topical two times a day as needed apply to affected area(s) twice daily until healed 03/08/20 023 Inactive Spiriva Respimat 2.5 mcg/actuation solution for inhalation RxNorm: 5281300 2 Puff(s) Inhalation every day at the same time each day 03/08/20 023 Inactive cholecalciferol (vitamin D3) 50 mcg (2,000 unit) tablet RxNorm: 358803 TAKE 1 TABLET BY MOUTH EVERY DAY 01/27/20 022 Inactive Daily-Davion tablet RxNorm: Take 1 Tablet( s) Oral every day 01/25/20 022 Inactive clotrimazole 1 % topical cream RxNorm: 418594 Apply 1 Application Topical two times a day as needed apply to affected area(s) twice daily until healed 01/13/20 023 Inactive hydrocortisone 1 % lotion RxNorm: 563031 Take 2 Gram(s) Topical every day 12/17/19 022 Inactive Daily-Davion tablet RxNorm: Take 1 Tablet( s) Oral every day 07/29/20 21 021 Inactive Daily Vitamin Formula tablet RxNorm: 1 Tablet(s) Oral every day 02/03/20 21 021 Inactive cholecalciferol (vitamin D3) 50 mcg (2,000 unit) tablet RxNorm: 239749 TAKE 1 TABLET BY MOUTH EVERY DAY 12/29/19 021 Inactive Daily Vitamin Formula tablet RxNorm: 1 Tablet(s) Oral every day 05/15/20 021 Inactive cholecalciferol (vitamin D3) 2,000 unit tablet RxNorm: 260590 1 Tablet(s) Oral every day 12/07/19 20 021 Inactive Marijuana (Legal) RxNorm: 12/05/19 20 Active Medication Administered No Medication Administered data Results Observation Observation Code Item Item Code Result Date S ervice Location NO ORDERS HEMOCCULT NO ORDERS HEMOCCULT NO ORDERS FOBT 0.00 3 [facility] [address] [place] [address] Procedures Procedure Codes Date Smoking and tobacco use cess ation counseling visit > 10 MIN CPT-4: 07779 04/28/2023 Electrocardiogram CPT-4: 70854 04/28/2023 Annual Wellness Visit (Subsequent Visit) CPT-4: [...] G0439 12/16/2021 Fall Risk Assessment SNOMED CT: 75809606 4 CPT-4: DFRA 12/16/2021 Patient Health Questionnaire CPT-4: DPHQ Frailty Screening CPT-4: SFD 09/06/2021 Patient Health Questionnaire CPT-4: DPHQ 11/2020 Annual Wellness Visit (Subsequent Visit) CPT-4: G0439 12/16/2020 Tobacco Assessment/Screening CPT-4: TCA 07/2021 Patient Health Questionnaire CPT-4: DPHQ 07/2021 Advanced Care Planning CPT-4: VACP Hypertension CPT-4: HTN 10/27/2020 Fall Risk Assessment SNOMED CT: 17807946 4 CPT-4: DFRA 04/21/2020 Tobacco Assessment/Screening CPT-4: TCA Functional Assessment CPT-4: DFA 03/02/2020 Hypertension CPT-4: HTN 12/05/2019 Electrocardiogram CPT-4: 37185 12/05/2019 Tobacco Assessment/Screening CPT-4: TCA Urinalysis, dip stick CPT-4: 92423 12/05/2019 Elder Abuse Screening CPT-4: EAS 12/05/2019 [place] Nasim Assessment CPT-4: DSWA 11/07 External Mammogram CPT-4: EMAM Unknown Fecal Occult Blood Test (FOBT) Screening CPT-4: G0328 Unknown Fecal Occult Blood Test (FOBT) Screening CPT-4: G0328 Unknown Gynecology Referral SNOMED CT: 718848173 CPT-4: R14 Unknown External Mammogram CPT-4: EMAM Unknown M7J-Cglmimnpuwwfwny CPT-4: 66471 Unknown Fecal Occult Blood Test (FOBT) Screening CPT-4: G0328 Unknown Reason For Visit No Reason For Visit data Plan of Care Planned Activity Notes Codes Status Date Appointment: Frances Boswell WPtel: [address] [place] [address] E410 04/28/2023 Appointment: Frances Boswell WPtel: [address] [place] [address] E410 03/08/2023 Appointment: Frances Boswell WPtel: [address] [place] [address] ETV 01/05/2022 Appointment: Nicanor Man WPtel: [address] [place] [address] E410 12/16/2021 Appointment: Kevyn Valentin WPtel: [address] [facility] [id number] [place] E410 10/07/2021 Appointment: Nicanor Man WPtel: [address] [place] [address] E410 09/06/2021 Appointment: Frances Boswell WPtel: [address] [place] [address] ETV 05/10/2021 Appointment: Frances Boswell WPtel: [address] [place] [address] ETV 03/02/2021 Appointment: Naman Villarreal: [address] [place] [address] [place] RLOL 02/10/2021 Appointment: Frances Boswell WPtel: [address] [place] [address] [place] E410 02/03/2021 Appointment: Fabiola Madsen MCtel: [id number] [place] ECHO 01/26/2021 Appointment: Frances Boswell WPtel: [address] [place] [address] ETV 01/22/2021 Appointment: Frances Boswell WPtel: [address] [place] [address] E410 12/16/2020 Appointment: Frances Boswell WPtel: [address] [place] [address] [place] ETV 10/27/2020 Appointment: Megan Coello MCtparis: [address] [facility] [address] [id number] [place] MULT 10/08/2020 Appointment: Frances Boswell WPtel: [address] [place] [address] E410 10/07/2020 Appointment: Frances Boswell WPtel: [address] [place] [address] [place] ETV 09/11/2020 Appointment: Frances Boswell WPtel: [address] [place] [address] [place] ETV 07/24/2020 Appointment: Frances Boswell WPtel: [address] [place] [address] [place] ETV 06/26/2020 Appointment: Frances Boswell WPtel: [address] [place] [address] ETV 05/15/2020 Appointment: Frances Boswell WPtel: [address] [place] [address] [address] [facility] [id number] [place] E410 04/21/2020 Appointment: Frances Boswell WPtel: [id number] [place] [address] [address] [place] [id number] [place] E410 03/02/2020 Appointment: Frances Boswell WPtel: [address] [facility] [address] [place] [id number] [place] E410 12/31/2019 Appointment: Kevyn Valentin WPtel: [address] [facility] [address] [id number] [place] N410 12/05/2019 Referral: Pending Mental Health Services Referral Information Patient notified that it has been recommended that she be seen by Mental Health. Patient agreed to be seen and prefers to be seen close to home. Patient does not have any transportation issues. After trying multiple providers in the area, service writer spoke with Caryl at [facility] who states that they are able to accept new patient's. Caryl asked that patient's referral and visit notes be faxed to [phone]. Mason Apprentice faxed over requested documents. Patient to call to schedule an appointment. Patient's referral confirmation letter mailed to her home address. Processed Referral: Pending Cardiology Referral Information Patient requesting to be seen by Cardiology. Patient denies any concerns with transportation, and prefers to schedule her own appointment. Mason Apprentice faxed over the patient's referral, most recent clinical notes, most recent echo and most recent EKG to F: . Patient to call to schedule her appointment. Appointment confirmation letter mailed to the patient's home address. CCDA completed. Initiated Referral: Pending Referral Source Referral Request CCDA Referral: Pending Nephrology Referral Information Patient requesting to be seen by a Search Advertising Strategist. Patient agreed to be seen and does not have a preferred provider. Patient denies any concerns with transportation. Mason Apprentice placed a call out to [facility] Nephrology office at and confirmed that their office is able to accept new patients. Mason Apprentice faxed over the patient's referral, clinical notes, [...] prefers a provider close to her home. Mason Apprentice placed a call out to [facility] P: , but was told by Won that their office is not able to accept new patients. Mason Apprentice then called [facility] and spoke with Yusra who asked that the patient's referral, and clinical notes be faxed to . Mason Apprentice faxed over the requested documents. Patient to call to schedule her appointment. Appointment confirmation letter mailed to the patient's home address. CCDA completed. Processed Referral: Pending Cardiology Referral Information Patient notified that it has been advised that she be seen by a Vp Product Management. Patient agreed to be seen and prefers to be seen by any provider that is close to her home. Patient denies any concerns with transportation, and prefers to schedule her own appointment. Mason Apprentice placed a call out to [facility] Cardiology and spoke with Alvina P: who confirmed that their office is able to accept new patients and the patient's insurance. After confirming the providers fax number, service writer faxed over the patient's referral, and [...] but prefers to stay close to home. Mason Apprentice placed a call out to [facility] Obstetrics Gynecology Mikayla Enrique and confirmed that they are able to accept new patient's and the patient's insurance. Patient does not have any transportation issues. Mason Apprentice faxed over patient's referral and clinical notes [...] and prefers to schedule her own appointment. Mason Apprentice placed a call out to [facility] Orthopaedics and spoke with Guadalupe P: who confirmed that their office is able to accept new patients and the patient's insurance. After confirming the providers fax number, service writer faxed over the patient's referral, xrays, and most recent clinical notes to F: . Patient to call to schedule her appointment. Appointment confirmation letter mailed to the patient's home address. CCDA completed. Processed Medical Equipment No Medical Equipment data Advance Directives No Advance Directive data
--- OUTSIDE RECORDS SUMMARY | 2023-09-25 00:24 | XMS_ITS | CCD ---
Author Name Bess Boswell NP Address [address] [place] [address] [address] [place] [address] Phone [facility] Phone Care Team Providers Care Hydro Pneumatic Tester Name Role Phone Frances Boswell NP Primary Care Provider Unav ailable Unavailable Chronic Care Management Unavaila ble Summary Purpose DataExchange Insurance Providers Payer name Policy type / Coverage type Covered democrat ID Effective Begin Date Effective End Date BRENDAN ALFONSO [id number] Unknown Unknown Family history Father Diagnosis Age [...] Current Smoker 12/05/[address]: 700662338 Never drinks alco hol 12/05/2019 Allergies, Adverse [...] D3) 50 mcg (2,000 unit) tablet RxNorm: 692693 TAKE 1 TABLET BY MOUTH EVERY DAY 03/08/20 023 Inactive Daily-Davion tablet RxNorm: Take 1 Tablet( s) Oral every day 03/08/20 023 Inactive Spiriva Respimat 2.5 mcg/actuation solution for inhalation RxNorm: 3440532 2 Puff(s) Inhalation every day at the same time each day 03/08/20 023 Inactive clotrimazole 1 % topical cream RxNorm: 790036 Apply 1 Application Topical two times a day as needed apply to affected area(s) twice daily until healed 03/08/20 023 Inactive Spiriva Respimat 2.5 mcg/actuation solution for inhalation RxNorm: 4867432 2 Puff(s) Inhalation every day at the same time each day 03/08/20 023 Inactive cholecalciferol (vitamin D3) 50 mcg (2,000 unit) tablet RxNorm: 498185 TAKE 1 TABLET BY MOUTH EVERY DAY 01/27/20 022 Inactive Daily-Davion tablet RxNorm: Take 1 Tablet( s) Oral every day 01/25/20 022 Inactive clotrimazole 1 % topical cream RxNorm: 087399 Apply 1 Application Topical two times a day as needed apply to affected area(s) twice daily until healed 01/13/20 023 Inactive hydrocortisone 1 % lotion RxNorm: 691644 Take 2 Gram(s) Topical every day 12/17/19 22 022 Inactive Daily-Davion tablet RxNorm: Take 1 Tablet( s) Oral every day 07/29/20 21 021 Inactive Daily Vitamin Formula tablet RxNorm: 1 Tablet(s) Oral every day 02/03/20 21 021 Inactive cholecalciferol (vitamin D3) 50 mcg (2,000 unit) tablet RxNorm: 458308 TAKE 1 TABLET BY MOUTH EVERY DAY 12/29/19 21 021 Inactive Daily Vitamin Formula tablet RxNorm: 1 Tablet(s) Oral every day 05/15/20 20 021 Inactive cholecalciferol (vitamin D3) 2,000 unit tablet RxNorm: 211131 1 Tablet(s) Oral every day 12/07/19 20 021 Inactive Marijuana (Legal) RxNorm: 12/05/19 20 Active Medication Administered No Medication Administered data Results Observation Observation Code Item Item Code Result Date Service Location Hemoccult Screening Immunoassay G0328 Fecal Occult Blood Test (FOBT) Screening 75084-7 Negative 05/12/20 [facility] [address] [place] [address] Patient Health Questionnaire (PHQ2) Little interest or pleasure in doing things 21368-5 0 04/28/20 Unknown Patient Health Questionnaire (PHQ2) Feeling down, depressed, or hopeless 91500-2 0 04/28/20 Unknown Patient Health Questionnaire (PHQ2) Total Score 0 04/28/20 Unknown Procedures Procedure Codes Date Smoking and tobacco use cess ation counseling visit > 10 MIN CPT-4: 51481 04/28/2023 Electrocardiogram CPT-4: 09462 04/28/2023 Annual Wellness Visit (Subsequent Visit) CPT-4: G0439 04/28/2023 Advance Care Planning discussed and documented C PT-4: 1123F 04/28/[address] CPT-4: 1159F 04/28/2023 RVW MEDS BY RX/DR IN RD CPT-4: 1160F 2022 Amnt pain noted; pain prsnt CPT-4: 1125F 04/08 Advance Care Planning discussed and documented C PT-4: 1123F 04/28/2023 HOSPC SERV DUR KEREN PD ([id number]) CPT-4: M1159 0 04/28/2023 LEVEL OF ACTIVITY ASSESS CPT-4: 1003F 023 Presence or Absence of Urinary Incontinence Asse ss CPT-4: 1090F 04/28/2023 Urinary incontinence plan of care documented CPT -4: 0509F 04/28/2023 Electrocardiogram Finding/Abnormal: _Sinus Rhythm -Short NE syndrome Jose = 112-Right axis -consider right ventricular hypertrophy. -Nonspecific ST depression + Nonspecific T-abnormality. CPT-4: 47333Uxyadeb 04/28/2023 Smoking and tobacco use cess ation counseling visit > 10 MIN CPT-4: 37825 04/28/2023 Documentation of patient hav ing a dx of depression or bipolar disorder CPT-4: G9717 04/28/2023 Improving Bladder Control CPT-4: IBC 2022 [...] G0439 12/16/2021 Fall Risk Assessment SNOMED CT: 91225636 4 CPT-4: DFRA 12/16/2021 Patient Health Questionnaire CPT-4: DPHQ Frailty Screening CPT-4: SFD 09/06/2021 Patient Health Questionnaire CPT-4: DPHQ 11/2020 Annual Wellness Visit (Subsequent Visit) CPT-4: G0439 12/16/2020 Tobacco Assessment/Screening CPT-4: TCA 07/2021 Patient Health Questionnaire CPT-4: DPHQ 07/2021 Advanced Care Planning CPT-4: VACP Hypertension CPT-4: HTN 10/27/2020 Fall Risk Assessment SNOMED CT: 06945122 4 CPT-4: DFRA 04/21/2020 Tobacco Assessment/Screening CPT-4: TCA Functional Assessment CPT-4: DFA 03/02/2020 Hypertension CPT-4: HTN 12/05/2019 Electrocardiogram CPT-4: 55108 12/05/2019 Tobacco Assessment/Screening CPT-4: TCA Urinalysis, dip stick CPT-4: 05143 12/05/2019 Elder Abuse Screening CPT-4: EAS 12/05/2019 [place] Nasim Assessment CPT-4: DSWA 11/07 External Mammogram CPT-4: EMAM Unknown Fecal Occult Blood Test (FOBT) Screening CPT-4: G0328 Unknown Fecal Occult Blood Test (FOBT) Screening CPT-4: G0328 Unknown Gynecology Referral SNOMED CT: 731909212 CPT-4: R14 Unknown External Mammogram CPT-4: EMAM Unknown P1E-Czowjithxnjgacv CPT-4: 23234 Unknown Fecal Occult Blood Test (FOBT) Screening CPT-4: G0328 Unknown Vital Signs Date Vital 04/28/2023 Blood Pressure 1: 136/88 Code: 8480-6 BMI: 20.9 Code: 99612-5 Heart Rate 1: 78 bpm Height: 5'7 Code: 8302-2 Respiratory Rate: 16 bpm SpO2: 98% Temperature: 36.5 (C) / 97.7 (F) Weight: 133 lbs 6 oz Code: 90591-4 Reason For Visit Reason For Visit Effective Dates Notes annual wellness visit 04/28/2023 Encounters Encounter Performer Location Location Address Codes [place] (G0439) Annual Wellness Visit (Subsequent Visit) Diagnosis: Encounter for general adult medical examination with abnormal findings[ICD10: Z00.01] Diagnosis: (Z12.11-V76.51) Encounter for screening for malignant neoplasm of colon[ICD10: Z12.11] Frances Boswell [place] [facility] [address] [place] [address] CPT-4: G0439 04/28/2023 Plan of Care Planned Activity Notes Codes Status Date Visit Plan: Visit time spent involved in medical discussion with patient, including obtaining history from patient, systems review, diagnostic and laboratory test review with patient. Assessment findings and plan reviewed with patient, including time to provide counseling, and education to patient F31.10-296.40 Bipolar I disorder, most recent episode (or current) manic (stable without medications, refuses MH support) R63.0-783.0 Anorexia (worsening appetite, note 5 pound weight loss since last visit) encourage smaller more frequent meals, discussed benefits of Protein drinks, resistant to them at this time. I25.10-414.00 CAD (coronary artery disease) (occasional chest pain, patient self monitors with portable EKG, encouraged to schedule appt with cardiology, will order Echocardiogram) J44.9-496 COPD (chronic obstructive pulmonary disease) F17.210-305.1 (F17.210-305.1) Nicotine dependence, cigarettes, uncomplicated (persistent, continue spiriva, smoking cessation encouraged) F10.10-305.00 Alcohol abuse (discussed health risks associated with increased alcohol consumption, cessation encouraged) Z00.01-V70.0 Encounter for general adult medical examination with abnormal findings (AWV complete, appt for cervical screen next month, gynecology also order mammogram and Low Dose chest CT, encouraged to complete FOBT left previously) 04/28/2023 Patient Education: Patient Medication Summary Completed 04/28/2023 Patient Education: AWV Preventative Screening Schedule 2020 Completed 04/28/2023 Care Plan: Echo LOINC : 65394-7 EXT RAD Ordered 04/28/2023 Appointment: Frances Boswell WPtel: [address] [place] [address] [place] E410 03/08/2023 Appointment: Frances Boswell WPtel: [address] [place] [address] [place] ETV 01/05/2022 Appointment: Nicanor Man WPtel: [address] [place] [address] [place] E410 12/16/2021 Appointment: Kevyn Valentin WPtel: [facility] [id number] [place] E410 10/07/2021 Appointment: Nicanor Man WPtel: [address] [place] [address] E410 09/06/2021 Appointment: Frances Boswell WPtel: [address] [place] [address] [place] ETV 05/10/2021 Appointment: Frances Boswell WPtel: [address] [place] [address] [place] ETV 03/02/2021 Appointment: Naman Villarreal: [address] [place] [address] [place] RLOL 02/10/2021 Appointment: Frances Boswell WPtel: [address] [place] [address] [place] E410 02/03/2021 Appointment: Fabiola Madsen: [id number] [place] ECHO 01/26/2021 Appointment: Frances Boswell WPtel: [address] [place] [address] [place] ETV 01/22/2021 Appointment: Frances Boswell WPtel: [id number] [place] [address] [place] E410 12/16/2020 Appointment: Frances Boswell WPtel: [address] [place] [address] [place] ETV 10/27/2020 Appointment: Megan Coello Seth: [address] [facility] [address] [id number] MULT 10/08/2020 Appointment: Frances Boswell WPtel: [address] [place] [address] [place] E410 10/07/2020 Appointment: Frances Boswell WPtel: [address] [place] [address] ETV 09/11/2020 Appointment: Frances Boswell WPtel: [address] [place] [address] ETV 07/24/2020 Appointment: Frances Boswell WPtel: [address] [place] [address] ETV 06/26/2020 Appointment: Frances Boswell WPtel: [address] [place] [address] ETV 05/15/2020 Appointment: Frances Boswell WPtel: [address] [place] [address] E410 04/21/2020 Appointment: Frances Boswell WPtel: [address] [place] [address] [place] E410 03/02/2020 Appointment: Frances Boswell WPtel: [address] [place] [address] [place] E410 12/31/2019 Appointment: Kevyn Valentin WPtel: [facility] [id number] 12/05/2019 Referral: Pending Mental Health Services Referral Information Patient notified that it has been recommended that she be seen by Mental Health. Patient agreed to be seen and prefers to be seen close to home. Patient does not have any transportation issues. After trying multiple providers in the area, instructional writer spoke with Caryl at [facility] who states that they are able to accept new patient's. Caryl asked that patient's referral and visit notes be faxed to [phone]. Parliamentary Librarian faxed over requested documents. Patient to call to schedule an appointment. Patient's referral confirmation letter mailed to her home address. Processed Referral: Pending Cardiology Referral Information Patient requesting to be seen by Cardiology. Patient denies any concerns with transportation, and prefers to schedule her own appointment. Parliamentary Librarian faxed over the patient's referral, most recent clinical notes, most recent echo and most recent EKG to F: . Patient to call to schedule her appointment. Appointment confirmation letter mailed to the patient's home address. CCDA completed. Initiated Referral: Pending Referral Source Referral Request CCDA Referral: Pending Nephrology Referral Information Patient requesting to be seen by a Civil Designer. Patient agreed to be seen and does not have a preferred provider. Patient denies any concerns with transportation. Parliamentary Librarian placed a call out to [facility] office at and confirmed that their office is able to accept new patients. Parliamentary Librarian faxed over the patient's referral, clinical notes, [...] prefers a provider close to her home. Parliamentary Librarian placed a call out to [facility] P: , but was told by Won that their office is not able to accept new patients. Parliamentary Librarian then called [facility] and spoke with Yusra who asked that the patient's referral, and clinical notes be faxed to . Parliamentary Librarian faxed over the requested documents. Patient to call to schedule her appointment. Appointment confirmation letter mailed to the patient's home address. CCDA completed. Processed Referral: Pending Cardiology Referral Information Patient notified that it has been advised that she be seen by a Book Or Script Editor. Patient agreed to be seen and prefers to be seen by any provider that is close to her home. Patient denies any concerns with transportation, and prefers to schedule her own appointment. Parliamentary Librarian placed a call out to [facility] and spoke with Alvina P: who confirmed that their office is able to accept new patients and the patient's insurance. After confirming the providers fax number, instructional writer faxed over the patient's referral, and [...] but prefers to stay close to home. Parliamentary Librarian placed a call out to [facility] and confirmed that they are able to accept new patient's and the patient's insurance. Patient does not have any transportation issues. Parliamentary Librarian faxed over patient's referral and clinical notes [...] and prefers to schedule her own appointment. Parliamentary Librarian placed a call out to [facility] and spoke with Guadalupe P: who confirmed that their office is able to accept new patients and the patient's insurance. After confirming the providers fax number, instructional writer faxed over the patient's referral, xrays, and most recent clinical notes to F: . Patient to call to schedule her appointment. Appointment confirmation letter mailed to the patient's home address. CCDA completed. Processed Instructions Comment Date . Visit time spent involved in medical discussion with patient, including obtaining history from patient, systems review, diagnostic and laboratory test review with patient. Assessment findings and plan reviewed with patient, including time to provide counseling, and education to patient F31.10-296.40 Bipolar I disorder, most recent episode (or current) manic (stable without medications, refuses support) R63.0-783.0 Anorexia (worsening appetite, note 5 pound weight loss since last visit) encourage smaller more frequent meals, discussed benefits of Protein drinks, resistant to them at this time. I25.10-414.00 CAD (coronary artery disease) (occasional chest pain, patient self monitors with portable EKG, encouraged to schedule appt with cardiology, will order Echocardiogram) J44.9-496 COPD (chronic obstructive pulmonary disease); F17.210-305.1 (F17.210-305.1) Nicotine dependence, cigarettes, uncomplicated (persistent, continue spiriva, smoking cessation encouraged) F10.10-305.00 Alcohol abuse (discussed health risks associated with increased alcohol consumption, cessation encouraged) Z00.01-V70.0 Encounter for general adult medical examination with abnormal findings (AWV complete, appt for cervical screen next month, gynecology also order mammogram and Low Dose chest CT, encouraged to complete FOBT left previously) 04/28/2023 Medical Equipment No Medical Equipment data Advance Directives No Advance Directive data
--- OUTSIDE RECORDS SUMMARY | 2023-09-25 00:24 | XMS_ITS | CCD ---
Author Name Bess Boswell NP Address [id number] [place] [address] [address] [place] [address] Phone Organization [facility] Phone Care Team Providers Care Copyright Clerk Name Role Phone Frances Boswell NP Primary Care Provider Unav ailable Unavailable Chronic Care Management Unavaila ble Summary Purpose DataExchange Insurance Providers Payer name Policy type / Coverage type Covered republican ID Effective Begin Date Effective End Date BRENDAN ALFONSO [id number] Unknown Unknown Family history Father Diagnosis Age [...] Current Smoker 12/05/[address]: 190090865 Never drinks alco hol 12/05/2019 Allergies, Adverse Reactions, Alerts Substance Reaction Codes Entered Date Inactivated Date Status *No known drug allergies Unknown 12/05/2019 No I nactive Date Active Problems Condition Codes Effective Dates Condition St atus (Z12.31-V76.12) Encounter fo r screening mammogram for malignant neoplasm of breast ICD-10: Z12.31 ICD-9: V76.12 12/16/2021 Active (Z12.4-V76.2) Encounter for screening for malignant neoplasm of cervix ICD-10: Z12.4 ICD-9: V76.2 06/09/2023 Active Anorexia ICD-10: R63.0 ICD-9: 783.0 04/28/2023 Active COPD (chronic obstructive pu lmonary disease) ICD-10: J44.9 ICD-9: 496 12/05/2019 Active 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 ICD-10: I12.9 ICD-9: 403.90 06/09/2023 Active Stage 3a chronic kidney dise ase (CKD) ICD-10: N18.31 ICD-9: 585.3 03/23/2023 Active Unintentional weight loss ICD-10: R63.4 ICD-9: 783.21 06/09/2023 Active CAD (coronary artery disease) ICD-10: I2 5.10 ICD-9: 414.00 10/07/2021 Active (F17.210-305.1) Nicotine dependence, cigarettes, uncomplicated ICD-10: F17.210 ICD-9: 305.1 03/08/2023 Active (Z12.11-V76.51) Encounter fo r screening for malignant neoplasm of colon ICD-10: Z12.11 ICD-9: V76.51 03/08/2023 Active Alcohol abuse ICD-10: F10.10 ICD-9: 305.00 04/28/2023 Active Bipolar I disorder, most rec ent episode (or current) manic ICD-10: F31.10 ICD-9: 296.40 12/05/2019 Active Encounter for general adult medical examination with abnormal findings ICD-10: Z00.01 ICD-9: V70.0 04/28/2023 Active History of heart attack ICD-10: I25.2 ICD-9: 412 12/05/2019 Active (Z13.1-V77.1) Encounter for screening for diabetes [...] findings ICD-10: Z00.00 ICD-9: V70.9 12/16/2021 Active Elevated blood pressure reading ICD-10: R03.0 ICD-9: 796.2 10/07/2021 Active Tobacco abuse ICD-10: Z72.0 ICD-9: 305.1 12/05/2019 Active Obsessive-compulsive disorder ICD-10: F4 2.9 ICD-9: 300.3 12/05/2019 Active Cannabis use without complication ICD-10 [...] D3) 50 mcg (2,000 unit) tablet RxNorm: 052279 TAKE 1 TABLET BY MOUTH EVERY DAY 03/08/20 23 023 Inactive Daily-Davion tablet RxNorm: Take 1 Tablet( s) Oral every day 03/08/20 023 Inactive Spiriva Respimat 2.5 mcg/actuation solution for inhalation RxNorm: 4482087 2 Puff(s) Inhalation every day at the same time each day 03/08/20 023 Inactive clotrimazole 1 % topical cream RxNorm: 953091 Apply 1 Application Topical two times a day as needed apply to affected area(s) twice daily until healed 03/08/20 23 023 Inactive Spiriva Respimat 2.5 mcg/actuation solution for inhalation RxNorm: 4351669 2 Puff(s) Inhalation every day at the same time each day 03/08/20 023 Inactive cholecalciferol (vitamin D3) 50 mcg (2,000 unit) tablet RxNorm: 192532 TAKE 1 TABLET BY MOUTH EVERY DAY 01/27/20 022 Inactive Daily-Davion tablet RxNorm: Take 1 Tablet( s) Oral every day 01/25/20 22 022 Inactive clotrimazole 1 % topical cream RxNorm: 067567 Apply 1 Application Topical two times a day as needed apply to affected area(s) twice daily until healed 01/13/20 22 023 Inactive hydrocortisone 1 % lotion RxNorm: 389210 Take 2 Gram(s) Topical every day 12/17/19 22 022 Inactive Daily-Advion tablet RxNorm: Take 1 Tablet( s) Oral every day 07/29/20 21 021 Inactive Daily Vitamin Formula tablet RxNorm: 1 Tablet(s) Oral every day 02/03/20 21 021 Inactive cholecalciferol (vitamin D3) 50 mcg (2,000 unit) tablet RxNorm: 684808 TAKE 1 TABLET BY MOUTH EVERY DAY 12/29/19 21 021 Inactive Daily Vitamin Formula tablet RxNorm: 1 Tablet(s) Oral every day 05/15/20 20 021 Inactive cholecalciferol (vitamin D3) 2,000 unit tablet RxNorm: 685154 1 Tablet(s) Oral every day 12/07/19 20 021 Inactive Marijuana (Legal) RxNorm: 12/05/19 20 Active Medication Administered No Medication Administered data Results Observation Observation Code Item Item Code Result Date Service Location PHOSPHORUS 84272 Phosphorus 2777-1 4.2 mg/dL 023 [facility] [address] [place] [address] VITAMIN D 31009 Vitamin D 12070-4 55.0 ng/mL 023 [facility] [address] [place] [address] CHEM 14 (METABOLIC PANEL) 97488 Glucose 2345-7 114 mg/dL 023 [facility] [address] [place] [address] CHEM 14 (METABOLIC PANEL) 02959 BUN 3094-0 9 mg/dL 023 [facility] [address] [place] [address] CHEM 14 (METABOLIC PANEL) 59296 Creatinine 2160-0 0.9 mg/dL 023 [facility] [address] [place] [address] CHEM 14 (METABOLIC PANEL) 07864 BUN/Creat Ratio 3097-3 9.7 023 [facility] [address] [place] [address] CHEM 14 (METABOLIC PANEL) 21857 GFR Estimated 67351-9 74 mL/min/1.73 m2 023 [facility] [address] [place] [address] CHEM 14 (METABOLIC PANEL) 72341 Sodium 2951-2 136 mmol/L 023 [facility] [address] [place] [address] CHEM 14 (METABOLIC PANEL) 63673 Potassium 2823-3 4.2 mmol/L 023 [facility] [address] [place] [address] CHEM 14 (METABOLIC PANEL) 63182 Chloride 2075-0 102 mmol/L 023 [facility] [address] [place] [address] CHEM 14 (METABOLIC PANEL) 52530 Total CO2 2028-9 26 mmol/L 023 [facility] [address] [place] [address] CHEM 14 (METABOLIC PANEL) 54451 Anion Gap 1863-0 12.2 mEq/L 023 [facility] [address] [place] [address] CHEM 14 (METABOLIC PANEL) 58374 Calculated Serum Osmolality 12839-8 282 mOsm/kg 023 [facility] [address] [place] [address] CHEM 14 (METABOLIC PANEL) 21024 Albumin 22123-6 4.5 g/dL 023 [facility] [address] [place] [address] CHEM 14 (METABOLIC PANEL) 85975 Total Protein 2885-2 7.6 g/dL 023 [facility] [address] [place] [address] CHEM 14 (METABOLIC PANEL) 62495 Globulin 2336-6 3.1 g/dL 023 [facility] [address] [place] [address] CHEM 14 (METABOLIC PANEL) 37228 Albumin/Globulin Ratio 1759-0 1.5 023 [facility] [address] [place] [address] CHEM 14 (METABOLIC PANEL) 81641 ALK PHOS 6768-6 101.00 U/L 023 [facility] [address] [place] [address] CHEM 14 (METABOLIC PANEL) 82987 SGOT/AST 1920-8 19 U/L 023 [facility] [address] [place] [address] CHEM 14 (METABOLIC PANEL) 91471 SGPT/ALT 1743-4 20 U/L 023 [facility] [address] [place] [address] CHEM 14 (METABOLIC PANEL) 11355 Total Bilirubin 1975-2 0.6 mg/dL 023 [facility] [address] [place] [address] CHEM 14 (METABOLIC PANEL) 27882 Calcium 71273-9 9.6 mg/dL 023 [facility] [address] [place] [address] CHEM 14 (METABOLIC PANEL) 62731 Corrected Calcium 26927-9 9.4 mg/dL 023 [facility] [address] [place] [address] MAGNESIUM 03114 Magnesium 99045-9 2.2 mg/dL 023 [facility] [address] [place] [address] COMPLETE CBC W/ DIFF WBC 34397 WBC 6690-2 9.2 K/ul 023 [facility] [address] [place] [address] COMPLETE CBC W/ DIFF WBC 59959 RBC 789-8 4.73 M/uL 023 [facility] [address] [place] [address] COMPLETE CBC W/ DIFF WBC 32827 Hemoglobin 718-7 16.1 g/dL 023 [facility] [address] [place] [address] COMPLETE CBC W/ DIFF WBC 82429 Hematocrit 4544-3 46.6 % 023 [facility] [address] [place] [address] COMPLETE CBC W/ DIFF WBC 65675 MCV 787-2 98.4 fL 023 [facility] [address] [place] [address] COMPLETE CBC W/ DIFF WBC 43374 MCH 785-6 34.1 pg 023 [facility] [address] [place] [address] COMPLETE CBC W/ DIFF WBC 43438 MCHC 786-4 34.6 g/dL 0[address] [facility] [address] [place] [address] COMPLETE CBC W/ DIFF WBC 70879 RDW 788-0 14.1 % 0[address] [facility] [address] [place] [address] COMPLETE CBC W/ DIFF WBC 19406 Platelet Count 777-3 358 K/uL 023 [facility] [address] [place] [address] COMPLETE CBC W/ DIFF WBC 19713 MPV 63352-1 9.3 fL 023 [facility] [address] [place] [address] COMPLETE CBC W/ DIFF WBC 63517 Neutrophils % 770-8 65.6 % 023 [facility] [address] [place] [address] COMPLETE CBC W/ DIFF WBC 91443 Lymphocytes % 736-9 26.8 % 0[address] [facility] [address] [place] [address] COMPLETE CBC W/ DIFF WBC 54155 Monocytes % 5905-5 6.2 % 0[address] [facility] [address] [place] [address] COMPLETE CBC W/ DIFF WBC 38363 Eosinophils % 713-8 0.2 % 0[address] [facility] [address] [place] [address] COMPLETE CBC W/ DIFF WBC 14807 Basophils% 706-2 1.2 % 0[address] [facility] [address] [place] [address] COMPLETE CBC W/ DIFF WBC 45464 Absolute Neutrophil 751-8 6035 /ul 023 [facility] [address] [place] [address] COMPLETE CBC W/ DIFF WBC 01856 Absolute Lymphocyte 32783-1 2466 /ul 023 [facility] [address] [place] [address] COMPLETE CBC W/ DIFF WBC 64983 Absolute Monocyte 742-7 570 /ul 023 [facility] [address] [place] [address] COMPLETE CBC W/ DIFF WBC 60541 Absolute Eosinophil 711-2 18 /ul 0[address] [facility] [address] [place] [address] COMPLETE CBC W/ DIFF WBC 96643 Absolute Basophil 704-7 110 /ul 0[address] [facility] [address] [place] [address] 80100 URIC ACID 62955 Uric Acid 3084-1 4.1 mg/dL 0[address] [facility] [address] [place] [address] 68[address] MICROALBUMIN (URINE) 80179 Microalbumin 53277-1 2.2 mg/dL 0[address] [facility] [address] [place] [address] 376[address] MICROALBUMIN (URINE) 42601 Microalbumin/Cre atinine Ratio 28993-0 23 MCG/MGCREAT 023 [facility] [address] [place] [address] 66[address] MICROALBUMIN (URINE) 17644 Urine Creatinine 2161-8 97.40 mg/dL 0[address] [facility] [address] [place] [address] 29041 PTH 90122 PTH 2731-8 29.1 pg/mL 0[address] [facility] [address] [place] [address] 47625 URINALYSIS AUTO W/SCOPE 41397 Glucose 2345-7 Negative mg/dL 023 [facility] [address] [place] [address] 69[address] URINALYSIS AUTO W/SCOPE 88462 Protein 30 mg/dL + mg/dL 0[address] [facility] [address] [place] [address] URINALYSIS AUTO W/SCOPE 34990 Bilirubin Negative mg/dL 0[address] [facility] [address] [place] [address] URINALYSIS AUTO W/SCOPE 81287 Urobilinogen Negative mg/dL 023 [facility] [address] [place] [address] URINALYSIS AUTO W/SCOPE 69575 Ph 6.00 023 [facility] [address] [place] [address] URINALYSIS AUTO W/SCOPE 64152 Blood 0.03 mg/dL + mg/dL 023 [facility] [address] [place] [address] URINALYSIS AUTO W/SCOPE 96281 Ketones Negative mg/dL 023 [facility] [address] [place] [address] URINALYSIS AUTO W/SCOPE 40839 Nitrite Negative 023 [facility] [address] [place] [address] URINALYSIS AUTO W/SCOPE 90733 Leukocytes Negative WBCs/uL 023 [facility] [address] [place] [address] URINALYSIS AUTO W/SCOPE 80277 Clarity Cloudy 023 [facility] [address] [place] [address] URINALYSIS AUTO W/SCOPE 83429 Specific [place] 1.017 023 [facility] [address] [place] [address] URINALYSIS AUTO W/SCOPE 52065 Color Rosa 023 [facility] [address] [place] [address] URINALYSIS AUTO W/SCOPE 31490 Ascorbic Acid Negative mg/dL 023 [facility] [address] [place] [address] URINALYSIS AUTO W/SCOPE 64009 Red Blood Cell 3 /HPF #/HPF 023 [facility] [address] [place] [address] URINALYSIS AUTO W/SCOPE 89013 SQUAMOUS EPITHELIAL 11 /HPF #/HPF 023 [facility] [address] [place] [address] URINALYSIS AUTO W/SCOPE 78875 White Blood Cell 3 /HPF #/HPF 023 [facility] [address] [place] [address] URINALYSIS AUTO W/SCOPE 57681 Bacteria Trace graded/HPF 023 [facility] [address] [place] [address] URINALYSIS AUTO W/SCOPE 80201 Calcium Oxalate Crystal MOD graded/HPF 023 [facility] [address] [place] [address] URINALYSIS AUTO W/SCOPE 99021 TRANSITIONAL EPITHELIAL 1 /HPF #/HPF 023 [facility] [address] [place] [address] Procedures Procedure Codes Date Urinalysis, dip stick CPT-4: 70465 06/09/2023 Urinalysis, dip stick Leukocytes:/Small, Nitrite:/Negative, Urobilinogen:/0.2, Protein:/Negative, Ph:/5.0, Blood:/Negative, Specific [place]:/1.020, Ketone:/Negative, Bilirubin:/Small, Glucose:/Negative CPT-4: 87477Bztcuxv 06/09/2023 Smoking and tobacco use cess ation counseling visit > 10 MIN CPT-4: 69355 04/28/2023 Electrocardiogram CPT-4: 43299 04/28/2023 Annual Wellness Visit (Subsequent Visit) CPT-4: [...] G0439 12/16/2021 Fall Risk Assessment SNOMED CT: 20946509 4 CPT-4: DFRA 12/16/2021 Patient Health Questionnaire CPT-4: DPHQ Frailty Screening CPT-4: SFD 09/06/2021 Patient Health Questionnaire CPT-4: DPHQ 11/2020 Annual Wellness Visit (Subsequent Visit) CPT-4: G0439 12/16/2020 Tobacco Assessment/Screening CPT-4: TCA 07/2021 Patient Health Questionnaire CPT-4: DPHQ 07/2021 Advanced Care Planning CPT-4: VACP Hypertension CPT-4: HTN 10/27/2020 Fall Risk Assessment SNOMED CT: 10738289 4 CPT-4: DFRA 04/21/2020 Tobacco Assessment/Screening CPT-4: TCA Functional Assessment CPT-4: DFA 03/02/2020 Hypertension CPT-4: HTN 12/05/2019 Electrocardiogram CPT-4: 66656 12/05/2019 Tobacco Assessment/Screening CPT-4: TCA Urinalysis, dip stick CPT-4: 43465 12/05/2019 Elder Abuse Screening CPT-4: EAS 12/05/2019 [place] Nasim Assessment CPT-4: DSWA 11/07 External Mammogram CPT-4: EMAM Unknown Fecal Occult Blood Test (FOBT) Screening CPT-4: G0328 Unknown Fecal Occult Blood Test (FOBT) Screening CPT-4: G0328 Unknown Gynecology Referral SNOMED CT: 524336409 CPT-4: R14 Unknown External Mammogram CPT-4: EMAM Unknown [id number] CPT-4: 61610 Unknown Fecal Occult Blood Test (FOBT) Screening CPT-4: G0328 Unknown Vital Signs Date Vital 06/09/2023 Blood Pressure 1: 136/84 Code: 8480-6 BMI: 20.2 Code: 49672-1 Heart Rate 1: 90 bpm Height: 5'7 Code: 8302-2 Respiratory Rate: 16 bpm SpO2: 98% Temperature: 36.4 (C) / 97.5 (F) Weight: 129 lbs Code: 65466-3 Reason For Visit Reason For Visit Effective Dates Notes CAD 06/09/2023 weight loss 06/09/2023 Interim health update 06/09/2023 COPD 06/09/2023 Encounters Encounter Performer Location Location Address Codes [place] ([id number]) Home or Residence Visit Est Pt - High Level, 60 mins Diagnosis: Stage 3a chronic kidney disease (CKD)[ICD10: N18.31] Diagnosis: Stage 3 chronic kidney disease due to arterionephrosclero sis[ICD10: I12.9] Diagnosis: Anorexia[ICD10: R63.0] Diagnosis: COPD (chronic obstructive pulmonary disease)[ICD10: J44.9] Diagnosis: Unintentional weight loss[ICD10: R63.4] Diagnosis: (Z12.31-V76.12) Encounter for screening mammogram for malignant neoplasm of breast[ICD10: Z12.31] Diagnosis: (Z12.4-V76.2) Encounter for screening for malignant neoplasm of cervix[ICD10: Z12.4] Frances Spencer Office [address] [place], [place] [id number] CPT-4: 65924 06/09/2023 Plan of Care Planned Activity Notes Codes Status Date Visit Plan: N18.31-585.3 Stage 3 a chronic kidney disease (CKD) (last CKD 50, ongoing follow up with nephrology, labs ordered)nephrology note reviewed I12.9-403.90 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 (as above) R63.0-783.0 Anorexia (grazes throughout the day, declines mirtazapine or protein drinks, will check labs) J44.9-496 COPD (chronic obstructive pulmonary disease) (ongoing, smoking cessation encouraged, low dose CT for screening scheduled for 06/16/2023) R63.4-783.21 Unintentional weight loss (note additional 4 pound weight loss since last visit ) Z12.31-V76.12 (Z12.31-V76.12) Encounter for screening mammogram for malignant neoplasm of breast (mammogram scheduled for 06/16/2023) Z12.4-V76.2 (Z12.4-V76.2) Encounter for screening for malignant neoplasm of cervix (seen by gynecology 06/07/2023, u/s pelvic with transvaginal 06/16)compensation and benefits analyst note reviewed 06/09/2023 Patient Education: Heart Disease Completed 06/09/2023 Patient Education: Patient Medication Summary Completed 06/09/2023 Patient Education: COPD Completed 1 08/09/2022 Appointment: Frances Boswell WPtel: [address] [place] [address] E410 04/28/2023 Appointment: Frances Boswell WPtel: [address] [place] [address] E410 03/08/2023 Appointment: Frances Boswell WPtel: [address] [place] [address] ETV 01/05/2022 Appointment: Nicanor Man WPtel: [phone] [place] [address] [place] E410 12/16/2021 Appointment: Kevyn Valentin WPtel: [address] [facility] [address] [id number] [place] E410 10/07/2021 Appointment: Nicanor Man WPtel: [address] [place] [address] [place] E410 09/06/2021 Appointment: Frances Boswell WPtel: [address] [place] [address] [place] ETV 05/10/2021 Appointment: Frances Boswell WPtel: [address] [place] [address] ETV 03/02/2021 Appointment: Naman Villarreal: [address] [place] [address] [place] RLOL 02/10/2021 Appointment: Frances Boswell WPtel: [address] [place] [address] E410 02/03/2021 Appointment: Fbaiola Madsen: [address] [facility] [employer] [id number] [place] ECHO 01/26/2021 Appointment: Frances Boswell WPtel: [address] [place] [address] [place] ETV 01/22/2021 Appointment: Frances Boswell WPtel: [address] [place] [address] E410 12/16/2020 Appointment: Frances Boswell WPtel: [address] [place] [address] ETV 10/27/2020 Appointment: Megan Coello: [address] [facility] [address] [id number] [facility] 10/08/2020 Appointment: Frances Boswell WPtel: [phone] [place] [address] [place] E410 10/07/2020 Appointment: Frances Boswell WPtel: [phone] [place] [address] [place] ETV 09/11/2020 Appointment: Frances Boswell WPtel: [address] [place] [address] [place] ETV 07/24/2020 Appointment: Frances Boswell WPtel: [address] [place] [address] [place] ETV 06/26/2020 Appointment: Frances Boswell WPtel: [address] [place] [address] ETV 05/15/2020 Appointment: Frances Boswell WPtel: [address] [place] [address] E410 04/21/2020 Appointment: Frances Boswell WPtel: [address] [place] [address] E410 03/02/2020 Appointment: Frances Boswell WPtel: [address] [place] [address] E410 12/31/2019 Appointment: Kevyn Valentin WPtel: [facility] b [id number] N410 12/05/2019 Referral: Pending Mental Health Services Referral Information Patient notified that it has been recommended that she be seen by Mental Health. Patient agreed to be seen and prefers to be seen close to home. Patient does not have any transportation issues. After trying multiple providers in the area, insurance writer spoke with Caryl at [facility] who states that they are able to accept new patient's. Caryl asked that patient's referral and visit notes be faxed to [phone]. Quantity Surveyor faxed over requested documents. Patient to call to schedule an appointment. Patient's referral confirmation letter mailed to her home address. Processed Referral: Pending Cardiology Referral Information Patient requesting to be seen by Cardiology. Patient denies any concerns with transportation, and prefers to schedule her own appointment. Quantity Surveyor faxed over the patient's referral, most recent clinical notes, most recent echo and most recent EKG to F: . Patient to call to schedule her appointment. Appointment confirmation letter mailed to the patient's home address. CCDA completed. Initiated Referral: Pending Referral Source Referral Request CCDA Referral: Pending Nephrology Referral Information Patient requesting to be seen by a Priest. Patient agreed to be seen and does not have a preferred provider. Patient denies any concerns with transportation. Quantity Surveyor placed a call out to [facility] Neph[facility] office at and confirmed that their office is able to accept new patients. Quantity Surveyor faxed over the patient's referral, clinical notes, [...] prefers a provider close to her home. Quantity Surveyor placed a call out to [facility] P: , but was told by Won that their office is not able to accept new patients. Quantity Surveyor then called [facility] [place] and spoke with Yusra who asked that the patient's referral, and clinical notes be faxed to . Quantity Surveyor faxed over the requested documents. Patient to call to schedule her appointment. Appointment confirmation letter mailed to the patient's home address. CCDA completed. Processed Referral: Pending Cardiology Referral Information Patient notified that it has been advised that she be seen by a Front Desk Agent. Patient agreed to be seen and prefers to be seen by any provider that is close to her home. Patient denies any concerns with transportation, and prefers to schedule her own appointment. Quantity Surveyor placed a call out to [facility] and spoke with Alvina P: who confirmed that their office is able to accept new patients and the patient's insurance. After confirming the providers fax number, insurance writer faxed over the patient's referral, and [...] but prefers to stay close to home. Quantity Surveyor placed a call out to [facility] Obstetrics Gynecology [facility] and confirmed that they are able to accept new patient's and the patient's insurance. Patient does not have any transportation issues. Quantity Surveyor faxed over patient's referral and clinical notes [...] and prefers to schedule her own appointment. Quantity Surveyor placed a call out to [facility] and spoke with Guadalupe P: who confirmed that their office is able to accept new patients and the patient's insurance. After confirming the providers fax number, insurance writer faxed over the patient's referral, xrays, and most recent clinical notes to F: . Patient to call to schedule her appointment. Appointment confirmation letter mailed to the patient's home address. CCDA completed. Processed Instructions Comment Date . 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 (as above) R63.0-783.0 Anorexia (grazes throughout the day, declines mirtazapine or protein drinks, will check labs) J44.9-496 COPD (chronic obstructive pulmonary disease) (ongoing, smoking cessation encouraged, low dose CT for screening scheduled for 06/16/2023) R63.4-783.21 Unintentional weight loss (note additional 4 pound weight loss since last visit ) Z12.31-V76.12 (Z12.31-V76.12) Encounter for screening mammogram for malignant neoplasm of breast (mammogram scheduled for 06/16/2023) Z12.4-V76.2 (Z12.4-V76.2) Encounter for screening for malignant neoplasm of cervix (seen by gynecology 06/07/2023, u/s pelvic with transvaginal 06/16)compensation and benefits analyst note reviewed 06/09/2023 Medical Equipment No Medical Equipment data Advance Directives No Advance Directive data
--- OUTSIDE RECORDS SUMMARY | 2025-03-24 09:30 | XMS_ITS ---
Author Organization [facility] Address [address] [place], [place] [id number] Care Team Providers Care Electronic Lab Technician Name Role Phone Cindy Perez Primary Care Provider [phone] Anup Guadalupe Baron [phone] REASON FOR VISIT [facility] endoscope f/u, 03-10-25 Social History Sex Assigned At : Social History Observation Description Sex Assigned At Female Encounters Encounter Location Date Provider Diagnosis [facility] [address] [facility] [facility] [id number] 03/24/2025 Cindy Perez Plan Of Treatment Next Appt Details Provider Name:Guadalupe Dipika kenney, 11/06/2025 12:45:00 PM, [address] [place] [address], [id number], Progress Notes * Sean CASTELLON ADOB:1969 (54 yo F)Acc No.[id number]:03/24/2025 Medical Note Patient: Sean ESPINOZA Provider: Cuba Perez MD :1970 A ge:54 Y S ex:Female Date:03/24/2025 Address:[address] [place] [address] [facility] [place], [id number] Subjective: * Chief Complaints: * 1 . [facility] endoscope f/u, 03-10-25. * Medical History: Objective: * Vitals: Assessment: Plan: * Treatment: * Billing Information: * Visit Code: * Procedure Codes: * Electronic signature of Jenny Perez MD on 05/21/2025 at 12:19 PM EDT Sign off status: Pending * Provider: Cuba Perez MD Date: 0 03/24/2025 Generated for Sage kenny/Jonathon/Mary on: 1 12:19 PM EDT
--- OUTSIDE RECORDS SUMMARY | 2025-05-08 13:20 | XMS_ITS | Encounter Summary ---
Author Organization [facility] Address [address] [place] [address] Care Team Providers Care Hospice Educator Name Role Phone Cindy Perez MD Primary Care Provider [phone] Danika Saenz Unavailable Unavailable Source Comments In the event this information is protected by the Federal Confidentiality of Alcohol and Drug AbusePatient Records regulations: The Federal rules restrict any use of the information to criminally investigate or prosecute any alcohol or drug abuse patient.[facility] Reason for Referral * Consult, Test, Treat (Routine) - Closed Specialty Diagnoses / Procedures Referred By Contac t Referred To Contact Radiation Oncology Diagnoses 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) Procedures OFFICE/OUTPATIENT [facility] 60 MINUTES Luis Bah MD [address] [place] [address] [place] [address] Phone: tel: fax: Referral ID Status Reason Start Date Expiration Date V isits Requested Visits Authorized [id number] Closed PCP Requested Referral 05/15/2025 05/08/2026 1 1 Reason for Visit * Reason Comments Established Patient Encounter Details Date Type Department Care Team (Latest Contact Info) Description 05/08/2025 1:20 PM EDT Visit (SP) Office Hematology/Oncology [address] [address] Luis Bah MD [address] [place] [address] 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) (Primary Dx) Social History Tobacco Use Types Packs/Day Years Used Date Smoking Tobacco: Every Day Smokeless Tobacco: Never Alcohol Use Standard Drinks/Week Comments Yes 0 (1 standard drink = 0.6 oz pur e alcohol) AUDIT-C Answer Date Recorded Q1: How often do you have a drink containing alcohol? 4 or more times a week 05/09/2025 Q2: How many drinks containi ng alcohol do you have on a typical day when you are drinking? 7 to 9 Q3: How often do you have si x or more drinks on one occasion? Daily or almost daily 05/09/2025 Area Deprivation Index Answer Date Joe rded National Score (1-100), lower number is lower ri sk 73 04/28/2025 State Score (1-10), lower number is lower risk 6 04/28/2025 Data from: https://www.neighborhoodatlas.medicine.[facility].edu/. Last address used for calculation [address] 04/28/2025 Comments No Sex and Gender Information Value Date Recorded Sex Assigned at Not on file Legal Sex Female 9:50 AM EST Gender Identity Not on file Sexual Orientation Not on file documented as of this encounter Last Filed Vital Signs Vital Sign Reading Time Taken Comments Blood Pressure 156/88 05/08/2025 1:17 PM EDT Pulse 74 05/08/2025 1:17 PM EDT Temperature 36.5 C (97.7 F) 05/08/2025 1:17 PM EDT Respiratory Rate 16 05/08/2025 1:17 PM EDT Oxygen Saturation 99% 05/08/2025 1:17 PM EDT Inhaled Oxygen Concentration - - Weight 58.2 kg (128 lb 4.9 oz) 05/08/2025 1:17 P M EDT Height - - Body Mass Index - - documented in this encounter Patient Instructions * Patient Instructions* Luis Bah MD - 05/08/2025 1:46 PM EDT Refer to rad onc varsha for lung cancer Chemo teach for weekly carbo taxol Schedule chemo on start day of radiation F/u in 2 weeks documented in this encounter Progress Notes * Luis Bah MD - 05/08/2025 1:18 PM EDT PATIENT NAME: Sean Maldonado CLINIC NO.: [id number] ATTENDING PHYSICIAN: Luis Bah MD DATE OF SERVICE: 05/08/[address] ROBISON thank you for referring Sean Maldonado for an opinion regarding Lung cancer. Some of the elements of this note have been copied from my previous progress note dated 04/28/25 . All the information has been reviewed carefully. CHIEF COMPLAINT: Lung cancer HPI: Sean Maldonado is a 54 year old year old female with PMH of CAD. she is a daily marijuana smoker in his smoked 1-2 packs of cigarettes per day for some 45 years. Low-dose chest screening CT was negative in June 2023. Low-dose screening chest CT in 2023 suggested minor subcentimeter lung nodules as below with recommendation for follow-up [address] scan with contrast 02/2025 showed: Abnormal bronchial wall thickening in the right upper lobe bronchus with adjacent enlarged right hilar lymph nodes. Findings could be infectious or malignant in etiology. Recommend correlating with bronchoscopy. Her bronchoscopy 02/2025 showed: Right upper lobe endobronchial disease status post EBBx, biopsy showed squamous cell carcinoma. PDL-1 50%. Pulmonary function testing suggest at least mild COPD. FEV1 is 2.2 L, 74% predicted. Expiratory flow rates are reduced. Lung volumes and diffusing capacity are normal. Smokes 1 pk/day. Drinks alcohol. On disability. Scheduled for PET scan on Monday Doing well 05/08/25: - Doing well - PET scan on 05/02/25 Evidence of a large right hilar and mediastinal lymph nodes compatible metabolically active neoplasm. - No major complaints - C/o mild hemoptysis and cough Current Outpatient Medications Medication Sig cholecalciferol (VITAMIN D3) 50 mcg (2,000 unit) tablet TAKE 1 TABLET BY MOUTH ONCE DAILY IN THE MORNING multivitamin tablet TAKE 1 TABLET BY MOUTH ONCE DAILY IN THE MORNING No current facility-administered medications for this visit. ALLERGIES Allergen Reactions Gadolinium-Containi* Angioedema History reviewed. No pertinent past medical history. History reviewed. No pertinent surgical history. History reviewed. No pertinent family history. SOCIAL HISTORY[1] REVIEW OF SYSTEMS GENERAL: No weight loss, malaise or fevers. No night sweats. HEENT: Negative for headaches, No changes in hearing or vision, no nose bleeds or other nasal problems. RESPIRATORY: Negative for cough, wheezing and shortness of breath CARDIOVASCULAR: Negative for chest pain, leg swelling and palpitations GI: Negative for abdominal discomfort, blood in stools or black stools and change in bowel habits : Negative for dysuria, frequency and incontinence MUSCULOSKELETAL: Negative for joint pain or swelling, back pain, and muscle pain. SKIN: Negative for lesions, rash, and itching. HEMATOLOGY/LYMPHOLOGY Negative for prolonged bleeding, bruising easily, and swollen nodes. NEURO: Negative for numbness or tingling of hands/feet. No weakness. PHYSICAL EXAMINATION: There were no vitals taken for this visit. There were no vitals taken for this visit. Last 3 Encounter Wt Readings: Date: Wt: 04/30/2013 65.8 kg (145 lb) 04/23/2013 64 kg (141 lb) General appearance:ECOG PERFORMANCE STATUS: 0- Fully active, able to carry on all pre-disease performance w/o restriction. Patient in NAD. Skin: Skin color, texture, turgor normal. No rashes or lesions. Eyes: Anicteric sclera. Pupils are equally round and reactive to light. Extraocular movements are intact. Breast: No palpable breast masses. No nipple change or discharge. Lymph Nodes: No cervical, supraclavicular, axillary or inguinal adenopathy. Oropharynx: Lips, mucosa, and tongue normal. Back: No pain to percussion. Negative SLR test Lungs clear to auscultation, No wheezing or rhonchi Heart: RRR without murmur, gallop, or rubs. Abdomen soft, non-tender. No masses, organomegaly Extremities: No deformities. No edema Neuro: Gait and speech normal. Reflexes normal and symmetric. Muscular strength intact. Sensation grossly intact. Rectal: Deferred : Deferred LABS: No results found for: GLUC , K , NA , CHLOR , CO2 , CREAT , BUN , ANION , CA , TPROT , ALB , TBILI , ALKPHOS , AST , ALT No results found for: WBC , RBC , HB , HCT , MCV , MCH , MCHC , RDWCV , PLT , MPV , NEUT , ABSNEUT , LYMPHP , ABSLYMPH , MONOP , ABSMONO , EOSINP , ABSEOSIN , BASOP , ABSBASO PATH: Surgical Pathology Order: [id number] Component 1 mo ago Case Report Surgical Pathology Report Case: [id number] Authorizing Provider: Karen Diamond MD Collected: 03/10/2025 0956 Ordering Location: [facility] Received: 03/10/2025 1049 - Endoscopy Pathologist: Abhinav Monte MD Specimen: Lung, Right, RUL Final Diagnosis 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 at 1504 EDT Comment This case has been reviewed in intradepartmental consultation with one other pathologist who concurs with the diagnosis. See also case #[id number] of right upper lobe BAL and right hilar lymph node FNA. Addendum 2 Results of PD-L1 (22C3), SemiQuant IHC, Manual dated 04/15/2025 are received from [facility], [address] [place] [address] and are as follows: Interpretation: Right upper lung, specimen for PD-L1 immunohistochemistry studies (clone 22C3, [employer], [place], [place]; using a proprietary detection system) ([id number]): 50% tumor cells are positive for PD-L1 (membranous positivity). Cytology non-gynecologic Order: [id number] Component 1 mo ago Case Report Medical Cytology Report Case: [id number] Authorizing Provider: Karen Diamond MD Collected: 03/10/2025 0951 Ordering Location: [facility] Received: 03/10/2025 1048 - Endoscopy Pathologist: Abhinav Monte MD Specimens: 1) - Lung, Right, Right upper lobe, BAL 2) - Lymph Node, Right hilar lymph node (R10), FNA Final Diagnosis 1. Lung, right upper lobe, BAL: Positive for malignancy, squamous cell carcinoma (see comment). 2. Right hilar lymph node (R10), FNA: Positive for malignancy, squamous cell carcinoma (see comment). at 1459 EDT IMAGING: ASSESSMENT AND PLAN: Sean Maldonado is a 54 year old year old female referred to us for right lung squamous cell carcinoma. CT scan with contrast 02/2025 showed: Abnormal bronchial wall thickening in the right upper lobe bronchus with adjacent enlarged right hilar lymph nodes. Findings could be infectious or malignant in etiology. Recommend correlating with bronchoscopy. - Bronchoscopy 02/2025 showed: Right upper lobe endobronchial disease status post EBBx, biopsy showed squamous cell carcinoma. - RUL BAL showed positive for malignancy, squamous cell carcinoma. Right hilar LN showed squamous cell carcinoma. - Scheduled for PET scan on Monday. - MRI brain on 04/03/25 showed no evidence of intracranial mets Pulmonary function testing suggest at least mild COPD. FEV1 is 2.2 L, 74% predicted. Expiratory flow rates are reduced. Lung volumes and diffusing capacity are normal PLAN: 1. 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) - ICD9: 162.2, ICD10: C34.01 - Doing well. - PET scan on 05/02/25 showed There are multiple avid and enlarged right hilar and subcarinal lymph nodes compatible with metabolically active neoplasm with maximum SUV of 17.3. Evidence of a large right hilar and mediastinal lymph nodes compatible metabolically active neoplasm. No additional abnormal radiotracer accumulation or scintigraphic evidence of distant metastatic disease - Final staging is T1N2M0. Stage IIIA - Explained to her in detail that she is not a surgical candidate given the involvement of multiplesubcarinal lymph nodes. - We will do concurrent chemo RT followed by maintenance durvalumab. - Refer to radiation oncology - We will do weekly CarboTaxol - All her questions answered in detail - F/u in [address] ROBISON thank you for allowing me to participate in Sean Maldonado care, if there are any questions or concerns please do not hesitate to contact me at the number below. I spent a total of 30 minutes on the date of the service which included preparing to see the patient, [id number] patient care, completing clinical documentation, obtaining and/or reviewing separately obtained history, performing a medically appropriate examination, counseling and educating the pat ient/family/caregiver, ordering medications, tests, or procedures, communicating with other HCPs (not separately reported), independently interpreting results (not separately reported), communicatingresults to the patient/family/caregiver, and care coordination (not separately reported). Luis Bah MD. Hematology/Medical Oncology [facility] [phone] CC: [1] Social History Tobacco Use Smoking status: Every Day Smokeless tobacco: Never Substance Use Topics Alcohol use: Yes Drug use: No documented in this encounter Plan of Treatment Upcoming Encounters Date Type Department Care Team (Late st Contact Info) Description 05/23/2025 12:30 PM EDT Office Visit PULMONARY [address] [place] [id number] LW* Malignant neoplasm of right lung, unspecified part of lung (HCC) [C34.91] 05/23/2025 1:00 PM EDT Procedure PULMONARY [address] [place] [phone] LW* Malignant neoplasm of right lung, unspecified part of lung (HCC) [C34.91] Scheduled Orders Name Type Priority Associated Diagnoses Orde r Schedule IR PORTOCATH PLACEMENT Radiology Routine 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) Ordered: 05/08/2025 Scheduled Referrals Name Type Priority Associated Diagnoses Orde r Schedule RAD/ONC CONSULT Referral Routine 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) Expected: 05/15/2025 (Approximate), Expires: 05/08/2026 documented as of this encounter Visit Diagnoses Diagnosis 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)- Primary documented in this encounter Care Teams Hospice Educator Relationship Specialty Start Date End Date Cindy Perez MD [address] [place] [address] PCP - General Internal Medicine 04/23/25 Danika Saenz LSW Finance Consultant 04/28/25 documented as of this encounter
--- OUTSIDE RECORDS SUMMARY | 2025-05-09 15:00 | XMS_ITS | Encounter Summary ---
Author Organization [facility] Address [address] [place] [id number] Care Team Providers Care It Manager Name Role Phone Cindy Perez MD Primary Care Provider [phone] Danika Saenz Unavailable Unavailable Source Comments In the event this information is protected by the Federal Confidentiality of Alcohol and Drug AbusePatient Records regulations: The Federal rules restrict any use of the information to criminally investigate or prosecute any alcohol or drug abuse patient.[facility] Reason for Referral * Consult, Test, Treat (Routine) - New Request Specialty Diagnoses / Procedures Referred By Contac t Referred To Contact Diagnoses 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) Procedures CT SIM PLANNING RADIATION ONCOLOGY THER RAD SIMULAJ-AIDED FIELD SETTING COMPLEX Jose Manuel Lynn MD [address] [place] [address] [place] [address] Phone: tel: fax: Referral ID Status Reason Start Date Expiration Date Visits Requested Visits Authorized [id number] New Request PCP Requested Referral 05/09/2025 08/07/2025 1 1 Reason for Visit * Reason Onset Date Comments Simulation Request Form 05/09/2025 * Consult, Test, Treat (Routine) - Closed Specialty Diagnoses / Procedures Referred By Contac t Referred To Contact Radiation Oncology Diagnoses 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 Last address used for calculation [address] 04/28/2025 Comments No Sex and Gender Information Value Date Recorded Sex Assigned at Not on file Legal Sex Female 9:50 AM EST Gender Identity Not on file Sexual Orientation Not on file documented as of this encounter Last Filed Vital Signs Vital Sign Reading Time Taken Comments Blood Pressure 143/86 05/09/2025 3:16 PM EDT Pulse 77 05/09/2025 3:16 PM EDT Temperature 37.2 C (98.9 F) 05/09/2025 3:16 PM EDT Respiratory Rate 16 05/09/2025 3:16 PM EDT Oxygen Saturation 96% 05/09/2025 3:16 PM EDT Inhaled Oxygen Concentration - - Weight 58.2 kg (128 lb 4.9 oz) 05/09/2025 3:16 P M EDT Height - - Body Mass Index - - documented in this encounter Functional Status * AUDIT-C Score Answer Date of Assessment Author 11 05/09/2025 3:23 PM EDT Rico Lambert RN * Question Answer Date of Assessment Author Q1: How often do you have a drink containing alcohol? 4 or more times a week 05/09/2025 3:23 PM EDT Vicenta Lambert RN Q2: How many drinks containing alcohol do you have on a typical day when you are drinking? 7 to 9 05/09/2025 3:23 PM EDT Vicenta Lambert RN Q3: How often do you have six or more drinks on one occasion? Daily or almost daily 05/09/2025 3:23 PM EDT Vicenta Lambert RN documented as of this encounter Progress Notes * Jose Manuel Lynn MD - 05/09/2025 3:37 PM EDT Images from the original note were not included. Radiation Oncology - New Patient/Consult Note PATIENT NAME: Sean Maldonado PATIENT REQUESTING PHYSICIAN: Dr. Luis Bah DIAGNOSIS: Stage III, locally advanced non-small cell lung cancer arising from the right chest. PATIENT IDENTIFICATION: This patient was seen in the Department of Radiation Oncology at the [facility] with Jose Manuel Lynn MD. Final recommendations will be communicated back to the requesting physician by way of the shared medical record, or letter to requesting physician via [place] mail. HISTORY OF PRESENT ILLNESS: per note from Dr. Bah on 04/28/2025: 'HPI: Sean Maldonado is a 54 year old [...] for PET scan on Monday Doing well ' After her meeting with Dr. Bah, she completed her PET/CT on which confirmed hypermetabolic activity in the right hilum but also in the mediastinal lymph nodes as well. At this point she was recommended to proceed to definitive treatment with concurrent chemoradiation and is referred today to the radiation medicine clinic to have a discussion regarding the role of radiation therapy in the definitive treatment of her locally advanced lung cancer. PAST MEDICAL HISTORY: History reviewed. No pertinent past medical history. PAST SURGICAL HISTORY: History reviewed. No pertinent surgical history. FAMILY HISTORY: History reviewed. No pertinent family history. SOCIAL HISTORY: Social History Tobacco Use Smoking status: Every Day Current packs/day: 1.00 Average packs/day: 1 pack/day for 41.8 years (41.8 ttl pk-yrs) Types: Cigarettes Start date: 1983 Smokeless tobacco: Never Substance Use Topics Alcohol use: Yes Drug use: No RADIATION HISTORY: The patient denies any history of therapeutic radiation. ALLERGIES: ALLERGIES Allergen Reactions Gadolinium-Containi* Angioedema MEDICATIONS: Current Outpatient Medications: cholecalciferol (VITAMIN D3) 50 mcg (2,000 unit) tablet multivitamin tablet prochlorperazine (COMPAZINE) 10 mg tablet ondansetron (ZOFRAN) 8 mg tablet PHYSICAL EXAMINATION: GENERAL: middle-aged woman sitting in chair, in no acute distress. VITALS: BP 143/86 Pulse 77 Temp 98.9 Resp 16 Wt 128 lb 4.9 oz (58.2kg) SpO2 96% KPS: 90 HEENT: NC/AT, anicteric sclera HEART: S1S2 LUNGS: non-labored breathing ABDOMEN: soft MUSCULOSKELETAL: no peripheral edema, moves all extremities. NEURO: no focal deficit; A&O X3. 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 Lung, right upper lobe, BAL: Positive for malignancy, squamous cell carcinoma (see comment). 2. Right hilar lymph node (R10), FNA: Positive for malignancy, squamous cell carcinoma RADIOLOGIC DATA: PET/CT (05/02/2025) IMPRESSION: 1. Evidence of a large right hilar and mediastinal lymph nodes compatible metabolically active neoplasm. No additional abnormal radiotracer accumulation or scintigraphic evidence of distant metastatic disease. IMPRESSION: Ms. Maldonado is a 54-year-old woman recently diagnosed with a locally advanced Stage III non-small cell lung cancer (squamous cell carcinoma) arising from the right chest status post bronchoscopy/biopsyon 03/10/2025 and staging workup with PET/CT from 05/02/2025 confirming activity in the right hilum and mediastinum with no evidence of distant disease. She has met with Dr. Bah and recommendedto proceed with definitive concurrent chemoradiation and is referred today to the radiation medicine clinic to have a discussion regarding the role of radiation therapy in the definitive treatment ofher locally advanced lung cancer. I spent time with the patient in decision making and discussion regarding the indications for, logistics of, and toxicity of radiation therapy to the chest in this definitive setting. Multiple questions were answered as they arose including a discussion of the mechanism of action of radiation therapy as well as potential causes for normal tissue toxicity. Based upon this discussion, informed consent was obtained, and we agreed to the following: RECOMMENDATIONS: 1. I would recommend a course of external beam radiation therapy directed to the area is of FDG avid disease in the right chest and mediastinum with concurrent chemotherapy for definitive treatment of her locally advanced lung cancer. 2. She will be scheduled return to clinic for CT simulation to begin treatment planning. 3. She will follow-up with Dr. Bah as scheduled for continued evaluation of systemic therapy recommendations. The patient understands the plan as outlined above. All of her questions were answered to her full satisfaction prior to the end of this consultation. She has been provided with our contact information should she have any further questions or concerns in the interim. Thank you for allowing us to participate in the care of this patient. Signed: Jose Manuel Lynn MD I spent a total of 60 minutes on the date of the service which included preparing to see the patient, otlo-sq-afob patient care, and counseling and educating the patient/family/caregiver. This document has been created with the use of voice recognition technology. It may contain inaccuracies, misspellings, inaccurate syntax or inappropriate word context that are a result of the inadequacies/shortcomings of said technology/software. * Vicenta Lambert RN - 05/09/2025 3:09 PM EDT Pacemaker/Defibrillator?N Previous Cancer(s)?N Previous Radiation?N Lupus/Scleroderma?N On body monitoring device?N Status: Post-menopausal. Vicenta Lambert RN documented in this encounter Plan of Treatment Upcoming Encounters Date Type Department Care Team (Late st Contact Info) Description 05/23/2025 12:30 PM EDT Office Visit PULMONARY [address] [place] [id number] LW* Malignant neoplasm of right lung, unspecified part of lung (HCC) [C34.91] 05/23/2025 1:00 PM EDT Procedure PULMONARY [address] [place] [address] LW* Malignant neoplasm of right lung, unspecified part of lung (HCC) [C34.91] Scheduled Orders Name Type Priority Associated Diagnoses Orde r Schedule CT SIM PLANNING RADIATION ONCOLOGY Radiology Routine 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
--- OUTSIDE RECORDS SUMMARY | 2025-05-20 11:30 | XMS_ITS | Encounter Summary ---
Author Organization [facility] tem Address [id number] [address] [place] [address] Care Team Providers Care Case Maker Name Role Phone Cindy Perez MD Primary Care Provider [phone] Reason for Referral * Rehabilitation - Outpatient (Routine) - Authorized Specialty Diagnoses / Procedures Referred By Mayur [email or web address] Referred To Contact Gynecology Diagnoses Incontinence of urine in female Love Maldonado APRN-MAGED [address] [place] [address] Phone: tel: fax: [facility] - Urogynecology [address] [place] [address] Phone: tel: fax: Referral ID Status Reason Start Date Expiration Date V isits Requested Visits Authorized [id number] Authorized 05/20/2025 05/20/2026 12 12 Reason for Visit * Reason Comments Urinary Incontinence Patient presents fo r urinary incontinence. Encounter Details Date Type Department Care Team (Late st Contact Info) Description 05/20/2025 11:30 AM EDT Office Visit [facility] [place] [address] [place] [address] Incontinence of urine in female (Primary Dx); Frequency of urination; Urgency of urination Social History Tobacco Use Types Packs/Day Years Used Date Smoking Tobacco: Every Day Cigarettes 1 40.8 Started: 1984 Passive Smoke Exposure: Past Smokeless Tobacco: Never Alcohol Use Standard Drinks/Week Comments Yes 28 (1 standard drink = 0.6 oz pu re alcohol) Overall Financial Resource Strain (CARDIA) Answe r Date Recorded How hard is it for you to pa y for the very basics like food, housing, medical care, and heating? Hard 03/17/2025 PHQ-2 Answer Date Recorded Total Score 8 04/10/2019 PRAPARE - Transportation Answer Date Re corded In the past 12 months, has l ack of transportation kept you from medical appointments or from getting medications? No 03/07 In the past 12 months, has l ack of transportation kept you from meetings, work, or from getting things needed for daily living? No 03/17/2025 Housing Instability Answer Date Recorde d Are you worried or concerned that in the next two months you may not have stable housing that you own, rent or stay in as a part of a household? No 03/17/2025 Childcare Answer Date Recorded Childcare Unknown 01/08/2019 Employment Answer Date Recorded Employment Unknown 01/08/2019 Hunger Screening Answer Date Recorded Within the past 12 months we worried whether our food would run out before we got money to buy more. Often True 05/20/2025 Within the past 12 months th e food we bought just didn't last and we didn't have money to get more. Often True 05/20/2025 Purpose - Life Answer Date Recorded Purpose and direction in life Unknown Comments No Sex and Gender Information Value Date Recorded Sex Assigned at Female 06/26/2019 5:34 AM EST Legal Sex Female 12:12 PM EDT Gender Identity Female 06/26/2019 5:34 AM EST Sexual Orientation Choose not to disclose 2018 5:34 AM EST Occupation Industry Job Start Date Job End Date Prior work history of various jobs Not on file Not on file Not on file 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 for mental health Not on file N ot on file Not on file documented as of this encounter Last Filed Vital Signs Vital Sign Reading Time Taken Comments Blood Pressure 160/90 05/20/2025 11:33 AM EDT Pulse - - Temperature - - Respiratory Rate - - Oxygen Saturation - - Inhaled Oxygen Concentration - - Weight 58.1 kg (128 lb) 05/20/2025 11:33 AM EDT Height 170.2 cm (5' 7.01 ) 05/20/2025 11:33 AM E DT Body Mass Index 20.04 05/20/2025 11:33 AM EDT documented in this encounter Patient Instructions * Attachments The following attachments cannot be sent through Care Everywhere. * Urinary incontinence in females (Indonesian) documented in this encounter Progress Notes * Love Maldonado, MINGLE OPERATOR-GYN - 05/20/2025 11:30 AM EDT Sean Maldonado is a 54 y.o.female. Patient's last menstrual period was 11/06/2023.. She presents today for urinary incontinence. Patient states for the past year she's had urinary frequency and are unable to hold bladder to make it to the restroom. Patient experiences incontinence with sneezing/coughing & switching positions. Patient was recently diagnosed with stage 3 lung cancer. Current contraception:bilateral tubal ligation OB History 3 Para 2 Term 2 AB 1 Living 2 SAB 1 IAB Ectopic Multiple Live Births 2 MEDICAL HX Past Medical History: Diagnosis Date Abnormal Pap smear of cervix AMI (acute myocardial infarction) ([facility] [place] 2012 Before the age of 40. Risk factors drugs alcohol and tobacco. Angioplasty (LAST STRESS TE ST NORMALCORONARY/ INFERIOR HYPOKINESIS / CT due to spasm) Back pain Bipolar disorder ([facility] [place] Chronic kidney disease COPD (chronic obstructive pulmonary disease) ([facility] [place] Dissociative identity disorder ([facility] [place] Drug abuse ([facility] [place] Marijuana 2014 ?still using / benzo 2012/ crack cocaine 2002 / crylstal meth 1995 / prior admits and out pt programs Gingivitis Multiple dental fillings. and one molar extracted. [place] teeth extracted Headache Herpes prior hx abn [...] humerus ORIF/ Ce avulsion chip Neuromuscular disorder (CMS-HCC) 06/07/15 [facility] Panic attack Panic disorder Paresthesias in left hand bear bottle laceration Posttraumatic stress disorder PTSD (post-traumatic stress disorder) Pulmonary nodule Shortness of breath Social phobia Tobacco use Varicella Visual impairment Wears glasses SURGICAL HX Past Surgical History: Procedure Laterality Date BRONCHOSCOPY ALVEOLAR LAVAGE N/A 03/10/2025 Performed by Karen Diamond MD at [facility] CARDIAC CATHETERIZATION 2012 CT at early age, (drug and alcohol, tobacco risk factors ) angioplasty ENDOBRONCHIAL ULTRASOUND BRONCHOSCOPY N/A 03/10/2025 Performed by Karen Diamond MD at [facility] FRACTURE SURGERY Left 06-10-11 left humerus HAND [...] right humerus, C2 chip fragment TOOTH EXTRACTION [place] teeth, molar extraction for cavities TUBAL LIGATION control FAMILY HX Family History Problem Relation Age of Onset Cancer Mother Med Spec Ovarian cancer Mother Not sure of cancer [...] Lung cancer Maternal Grandfather Liver cancer Other CREDIT ASSOCIATE cancer Ovarian cancer Other Breast cancer Neg Hx Anesthesia problems Neg Hx MEDS Current Outpatient Medications Medication Sig Dispense Refill aspirin (CHYNA LOW DOSE ASPIRIN) 81 mg Take 1 tablet (81 mg total) by mouth in the morning. 1 TABLET ORALLY ONCE A DAY. cholecalciferol, vitamin D3, 2,000 units tablet Take 1 tablet (2,000 Units total) by mouth in the morning. 30 tablet 1 diphenhydrAMINE (SOMINEX) 25 mg tablet Take 2 tablets (50 mg total) by mouth every 6 (six) hours. medical marijuana Inhale. multivitamin (THERAGRAN) tablet Take 1 tablet by mouth in the morning. 30 tablet 1 ondansetron (ZOFRAN) 8 mg tablet Take 1 tablet (8 mg total) by mouth every 8 (eight) hours as needed. prochlorperazine (COMPAZINE) 10 mg tablet Take 1 tablet (10 mg total) by mouth every 6 (six) hours as needed. SPIRIVA RESPIMAT 2.5 mcg/actuation mist INHALE 2 PUFFS BY MOUTH DAILY 4 g 11 diaper,brief,adult,disposable (DAY AND NIGHT BRIEF,MEDIUM) misc 1 Pad. by miscellaneous route as needed (incontinence). 120 each 1 No current facility-administered medications for this visit. ALLERGIES Allergies Allergen Reactions Gadolinium-Containing Contrast Media Hives and Other (See Comments) Hives, nasal congestion Patient was offered a medical wireless engineer and declined. Review of Systems Review of Systems Objective BP 160/90 Ht 170.2 cm (5' 7.01 ) Wt 58.1 kg (128 lb) LMP 11/06/2023 BMI 20.04 kg/m?? Physical Exam Assessment/Plan: Sean was seen today for urinary incontinence. Diagnoses and all orders for this visit: Incontinence of urine in female - diaper,brief,adult,disposable (DAY AND NIGHT BRIEF,MEDIUM) misc; 1 Pad. by miscellaneous route asneeded (incontinence). - Ambulatory Referral to Pelvic Floor Occupational Therapy - [place], [place]; Future - Cancel: Urinalysis; Future - Cancel: Urine culture; Future - Urinalysis - Urine culture Frequency of urination - Cancel: Urinalysis; Future - Cancel: Urine culture; Future - Urinalysis - Urine culture Urgency of urination - Cancel: Urinalysis; Future - Cancel: Urine culture; Future - Urinalysis - Urine culture Discussed kegel exercises and option for pelvic floor therapy. Patient desires pelvic floor therapy and referral placed. RX for briefs sent per patient request. All questions answered. Educational material provided through [employer]. Patient has a mammogram scheduled for next month. RTO for annual (due in July) or sooner as needed. LACHELLE Barboza APRN-CNP 05/20/25 1228 documented in this encounter Plan of Treatment Upcoming Encounters Date Type Department Care Team (Late st Contact Info) Description 06/23/2025 1:30 PM EST Appointment [facility] - Mammography/DEXA Imaging [address] [place] [phone] Scheduled Referrals Name Type Priority Associated Diagnoses Order Schedule Ambulatory Referral to Pelvic Floor Occupational Therapy - [place], [place] Outpatient Referral Routine Incontinence of urine in female 1 Occurrences starting 05/20/2025 until 05/20/2026 documented as of this encounter Procedures Procedure Name Priority Date/Time Associated Diagnosis Comments URINALYSIS Routine 05/20/2025 12:28 PM EDT Incontinence of urine in female Frequency of urination Urgency of urination URINE CULTURE Routine 05/20/2025 12:28 PM EDT Incontinence of urine in female Frequency of urination Urgency of urination documented in this encounter Results * Urine culture (05/20/2025 12:28 PM EDT) CULTURE RESULTS NO GROWTH AT <1000 CFU/mL 05/21/2025 1:54 PM EDT [facility] Urine Urine specimen collection, clean catch / Unknown 05/20/2025 12:28 PM EDT 05/20/2025 12:28 PM EDT us Love CHEEKGYN MICROBIOLOGY - GENERAL O RDERABLES Final Result [facility] [address] [place] [address], [place] [phone] * Urinalysis (05/20/2025 12:28 PM EDT) COLOR Yellow Yellow 05/20/2025 7:11 PM EDT [facility] TURBIDITY Clear Clear 05/20/2025 7:11 PM EDT [facility] SPECIFIC GRAVITY 1.005 1.003 - 1.035 05/20/2025 7:11 PM EDT [facility] NITRITE Negative Negative 05/20/2025 7:11 PM EDT [facility] PH,URINE 6.5 5.0 - 8.5 05/20/2025 7:11 PM EDT [facility] LEUKOCYTE ESTERASE Negative Negative 05/20/2025 7:11 PM EDT [facility] PROTEIN Negative Negative 05/20/2025 7:11 PM EDT [facility] KETONES (URINE) Negative Negative 7:11 PM EDT [facility] UROBILINOGEN <1.1 eu/dL <1.1 eu/dL 05/20/2025 7:11 PM EDT [facility] BILIRUBIN (URINE) Negative Negative 05/20/2025 7:11 PM EDT [facility] BLOOD/HGB Negative Negative 05/20/2025 7:11 PM EDT [facility] GLUCOSE (URINE) Negative Negative 7:11 PM EDT [facility] Urine Urine specimen collection, clean catch / Unknown 05/20/2025 12:28 PM EDT 05/20/2025 12:28 PM EDT Narrative [facility] - 05/20/2025 7:11 PM EDT Urine received without preservative. Delays in transport may affect results. Interpret with caution. A clinical correlation is recommended. us Love Maldonado MINGLE OPERATOR-GYN URINE ORDERABLES Final R esult [facility] [address] [place] [address], [place] [phone] documented in this encounter Visit Diagnoses Diagnosis Incontinence of urine in female- Primary Frequency of urination Urinary frequency Urgency of urination documented in this encounter Additional Health Concerns Assessment Noted Time PHQ-9 Depression Total Score: 8 04/10/20 19 8:00 AM EDT documented as of this encounter Care Teams Case Maker Relationship Specialty Start Date End Date Cindy Perez MD [address] [place] [address] PCP - General Internal Medicine 03/07/25 documented as of this encounter
--- OUTSIDE RECORDS SUMMARY | 2025-05-21 14:00 | XMS_ITS | Encounter Summary ---
Author Organization [facility] Address [address] [place] [address] Care Team Providers Care Tool Lapper Hand Name Role Phone Unavailable Primary Care Provider Unavailabl e Reason for Visit * Reason Comments Coronary Artery Disease Hyperlipidemia Hypertension Chest Pain Follow-up Patient is here toda y for a follow up appointment. Echo completed, stress test has not been completed. Patient states she is having chest pain, fatigue. 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 (Primary Dx); Other chest pain; Tobacco abuse; Bronchogenic cancer of right lung (CMS/HCC) Social History Tobacco Use Types Packs/Day Years Used Date Smoking Tobacco: Every Day Cigarettes Smokeless Tobacco: Never Alcohol Use Standard Drinks/Week Comments Yes 10 (1 standard drink = 0.6 oz pu re alcohol) 4 to 6 or 12 per day Comments Unknown Sex and Gender Information Value Date Recorded Sex Assigned at Female 04/14/2025 4:12 PM EDT Legal Sex Female 11:07 PM EDT Gender Identity Female 04/14/2025 4:12 PM EDT Sexual Orientation Heterosexual or Straight 03/2025 4:12 PM EDT documented as of this encounter Last Filed Vital Signs Vital Sign Reading Time Taken Comments Blood Pressure 148/82 05/21/2025 2:05 PM EDT Pulse 92 05/21/2025 2:05 PM EDT Temperature - - Respiratory Rate - - Oxygen Saturation 97% 05/21/2025 2:05 PM EDT Inhaled Oxygen Concentration - - Weight 57.6 kg (127 lb) 05/21/2025 2:05 PM EDT Height 170.2 cm (5' 7 ) 05/21/2025 2:05 PM EDT Body Mass Index 19.89 05/21/2025 2:05 PM EDT documented in this encounter Functional Status * BP Answer Date of Assessment Author 148/82 05/21/2025 2:05 PM EDT Anna Wallace MA * Pulse Answer Date of Assessment Author 92 05/21/2025 2:05 PM EDT Anna Wallace MA * Patient Position Answer Date of Assessment Author Sitting 05/21/2025 2:05 PM EDT Anna Wallace MA * BP Answer Date of Assessment Author 148/82 05/21/2025 2:05 PM EDT Anna Wallace MA * Pulse Answer Date of Assessment Author 92 05/21/2025 2:05 PM EDT Anna Wallace MA * SpO2 Answer Date of Assessment Author 97 05/21/2025 2:05 PM EDT Anna Wallace MA * BP Location Answer Date of Assessment Author Right arm 05/21/2025 2:05 PM EDT Anna Wallace MA * Patient Position Answer Date of Assessment Author Sitting 05/21/2025 2:05 PM EDT Anna Wallace MA documented as of this encounter Plan of Treatment Scheduled Orders Name Type Priority Associated Diagnoses Orde r Schedule Routine Stress (Treadmill Only) Cardiac Services Routine Other chest pain Expected: 05/21/2025 (Approximate), Expires: 05/21/2027 documented as of this encounter Visit Diagnoses Diagnosis 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
--- OUTSIDE RECORDS SUMMARY | 2025-05-21 15:12 | XMS_ITS | Clinical Summary ---
Author Organization [facility] Address [address] [place] [address] Care Team Providers Care Sports Commentator Name Role Phone Unavailable Primary Care Provider Unavailabl e Source Comments The following information is NOT included in Care Everywhere downloads:Psychiatric notes, ECG results, Cardiac Rehab notes, Pulmonary Function notes, data from [employer] (includes but not limited toPregnancy data,audiograms, eye exams, pre-surgical evaluation notes, well-child exam data).[facility] Allergies No known active allergies Medications citalopram (CELEXA) 20 MG tablet Take 1 Tab by mouth daily. 30 Tab 3 06/17/2011 Active quetiapine (SEROQUEL) 25 MG tablet Take 2 Tabs by mouth daily. 60 Tab 2 06/17/2011 Active tiotropium (SPIRIVA) 18 MCG inhalation capsule Inhale 1 Cap daily. 30 Cap 2 06/17/2011 Active clonazepam (KLONOPIN) 1 MG tablet Take 1 Tab by mouth 2 times daily. 60 Tab 3 06/17/2011 Active calcium carbonate-vitami n D (OS-JANNY D) 500-200 MG-UNIT per tablet Take 1 Tab by mouth daily. 30 Tab 3 11/02/2011 Active Active Problems Problem Noted Date Diagnosed Date Fracture of cervical vertebra, C6 06/10/2011 Fracture, tibia and fibula, shaft 06/10/2011 Fracture, humerus, shaft 06/10/2011 Fracture of transverse process of lumbar vertebr a 06/10/2011 Immunizations Immunization Administration Dates Next Due Influenza, unspecified formulation (CVX=88) 12/2010 Pneumococcal polysaccharide 23 Valent (PPSV23) ( CVX=33) 06/11/2011 Social History Tobacco Use Types Packs/Day Years Used Date Smoking Tobacco: Every Day Cigarettes 1.5 25 Smokeless Tobacco: Never Comments:Since the [facility] [place], pt i s trying to quit using the nicotine patches Comments Unknown Sex and Gender Information Value Date Recorded Sex Assigned at Not on file Legal Sex Female 6:31 AM EST Gender Identity Not on file Sexual Orientation Not on file Last Filed Vital Signs Vital Sign Reading Time Taken Comments Blood Pressure 153/83 06/17/2011 6:00 AM EST Pulse 64 06/17/2011 8:05 AM EST Temperature 36.1 C (97 F) 06/17/2011 6:00 AM EST Respiratory Rate 16 06/17/2011 8:05 AM EST Oxygen Saturation 94% 06/17/2011 6:00 AM EST Inhaled Oxygen Concentration - - Weight 67.4 kg (148 lb 8 oz) 06/15/2011 3:40 PM EST Height 170.2 cm (5' 7 ) 06/15/2011 3:40 PM EST Body Mass Index 23.26 06/15/2011 3:40 PM EST Plan of Treatment Health Maintenance Due Date Last Done Comments Colonoscopy 1970 HIV Test 1985 Hepatitis C Antibody 1988 Tdap Booster 1988 Hepatitis A (HAV) Vaccine (optional start 19+ years) 1 Hepatitis B (HBV) Vaccine (1 of 3 - 19+ 3-dose series) 1989 Tetanus (Td or Tdap) Booster 1989 Pap Smear 1991 Mammography 2010 CRC Screening 2015 Cholesterol 2015 Cologuard (Stool DNA) 2015 FIT 2015 Pneumococcal Vaccine(s) (50+ yrs) (2 of 2 - PCV) 05/2806/11/2011 Shingles (RZV) Vaccine (1 of 2) 2020 COVID-19 Vaccine (1 - season) 2025 Influenza Vaccine (#1) 2025 06/11/2011 Insurance [employer] Advance Directives * Full Code (Latest Code Status on File) Date Activated Date Inactivated Comments 06/15/2011 2:26 PM 06/17/2011 3:06 PM * Full Code Date Activated Date Inactivated Comments 06/11/2011 3:02 AM 06/15/2011 2:26 PM
--- OUTSIDE RECORDS SUMMARY | 2025-05-21 15:14 | XMS_ITS | Encounter Summary ---
Author Organization [employer] Address [id number] [address] [place] [address] Care Team Providers Care Shuttle Bus Driver Name Role Phone Cindy Perez MD Primary Care Provider [phone] Encounter Details Date Type Department Care Team (Late st Contact Info) Description 11/10/2020 Telephone [facility] Pulmonary/Sleep Medicine [address] [address] Charlotte Baca LPN Social History Tobacco Use Types Packs/Day Years Used Date Smoking Tobacco: Every Day Cigarettes 1 30 Smokeless Tobacco: Never Alcohol Use Standard Drinks/Week Comments Not Currently 0 (1 standard drink = 0.6 oz pure alcohol) Dry since about 2017. Maximum intake had been 2-3 mixed drinks a day PHQ-2 Answer Date Recorded Total Score 8 04/10/2019 Childcare Answer Date Recorded Childcare Unknown 01/08/2019 Employment Answer Date Recorded Employment Unknown 01/08/2019 Purpose - Life Answer Date Recorded Purpose [...] N ot on file Not on file COVID-19 Exposure Response Date Recorded In the last month, have you been in contact with someone who was confirmed or suspected to have Coronavirus / COVID-19? No / Unsure 11/12/2020 11:03 AM EDT documented as of this encounter Miscellaneous Notes * Telephone Encounter - Charlotte Baca LPN - 11/10/2020 8:45 AM EDT Orly from [employer] left a message stating CT is denied due to no recent CXR. Peer to Peer can be done [phone]. Tracking number [id number]. * Telephone Encounter - AUBREE Leon - 11/10/2020 8:45 AM EDT Please let them know she had a CXR on 10/08/20. Thanks SK * Telephone Encounter - Verito Zurita LPN - 11/10/2020 8:45 AM EDT Recent CXR was normal not sure if that will help much * Telephone Encounter - Charlotte Baca LPN - 11/10/2020 8:45 AM EDT Spoke to Orly in [employer]. This case has been closed due to insurance gave us 5 days to peer to peer which apparently started on 11/03/2020 but we were not aware of that in our office. * Telephone Encounter - AUBREE Leon - 11/10/2020 8:45 AM EDT Ok will address at patient next appointment. Thanks SK documented in this encounter Plan of Treatment Upcoming Encounters Date Type Department Care Team (Late st Contact Info) Description 06/23/2025 1:30 PM EST Appointment [facility] - Mammography/DEXA Imaging [address] [place] [address] documented as of this encounter Visit Diagnoses Not on filedocumented in this encounter Additional Health Concerns Assessment Noted Time PHQ-9 Depression Total Score: 8 04/10/20 19 8:00 AM EDT documented as of this encounter Care Teams Shuttle Bus Driver Relationship Specialty Start Date End Date Cindy Perez MD [address] [place] [address] PCP - General Internal Medicine 03/07/25 documented as of this encounter
--- OUTSIDE RECORDS SUMMARY | 2025-05-21 15:14 | XMS_ITS | Encounter Summary ---
Author Organization [employer] tem Address [facility] [id number] [address] [place] [address] Care Team Providers Care Food Expeditor Name Role Phone Cindy Perez MD Primary Care Provider [phone] Encounter Details Date Type Department Care Team (Latest Contact Info) Description 05/19/2025 Travel Social History Tobacco Use Types Packs/Day Years [...] on file documented as of this encounter Plan of Treatment Upcoming Encounters Date Type Department Care Team (Late st Contact Info) Description 06/23/2025 1:30 PM EST Appointment [facility] - Mammography/DEXA Imaging [address] [place] [phone] documented as of this encounter Visit Diagnoses Not on filedocumented in this encounter Additional Health Concerns Assessment Noted Time PHQ-9 Depression Total Score: 8 04/10/20 19 8:00 AM EDT documented as of this encounter Care Teams Food Expeditor Relationship Specialty Start Date End Date Cindy Perez MD [address] [place] [address] PCP - General Internal Medicine 03/07/25 documented as of this encounter
--- OUTSIDE RECORDS SUMMARY | 2025-05-21 15:14 | XMS_ITS | Encounter Summary ---
Author Organization [employer] Address [id number] [address] [place] [address] Care Team Providers Care Licensed Sales Producer Name Role Phone Cindy Perez MD Primary Care Provider [phone] Encounter Details Date Type Department Care Team (Late st Contact Info) Description 05/05/2025 Telephone [facility] Pulmonary/Sleep Medicine [address] [address] Aubrie Diaz LPN Social History Tobacco Use Types Packs/Day [...] before we got money to buy more. Sometimes True 025 Within the past 12 months th e food we bought just didn't last and we didn't have money to get more. Sometimes True 03/17/2025 Purpose - Life Answer Date Recorded Purpose [...] on file documented as of this encounter Miscellaneous Notes * Telephone Encounter - Aubrie Diaz LPN - 05/05/2025 9:16 AM EDT Pt left a VM stating she got a text to call our office? I do not see any communication? PET is not read? After looking into her chart, I think it was a reminder text to make an appt.. but not sure? Sent her a [employer] message * Telephone Encounter - Riaz Rosales MD - 05/05/2025 9:16 AM EDT Note she is seeing Medical Oncology in next few weeks We can wait until after to see in office. Not clear what therapeutic plan is and note her wish to pursue holistic medicine. rjw documented in this encounter Plan of Treatment Upcoming Encounters Date Type Department Care Team (Late st Contact Info) Description 06/23/2025 1:30 PM EST Appointment [facility] - Mammography/DEXA Imaging [address] [place] [phone] documented as of this encounter Visit Diagnoses Not on filedocumented in this encounter Additional Health Concerns Assessment Noted Time PHQ-9 Depression Total Score: 8 04/10/20 19 8:00 AM EDT documented as of this encounter Care Teams Licensed Sales Producer Relationship Specialty Start Date End Date Cindy Perez MD [address] [place] [address] PCP - General Internal Medicine 03/07/25 documented as of this encounter
--- OUTSIDE RECORDS SUMMARY | 2025-05-21 15:14 | XMS_ITS | Encounter Summary ---
Author Organization [employer] tem Address [facility] [id number] [address] [place] [address] Care Team Providers Care Watchstander Name Role Phone Cindy Perez MD Primary Care Provider Encounter Details Date Type Department Care Team (Late st Contact Info) Description 03/12/2025 Telephone [facility] Pulmonary/Sleep Medicine [address] [address] Aubrie Diaz LPN Social History Tobacco Use Types Packs/Day Years Used Date Smoking Tobacco: Every Day Cigarettes 1 40.8 Started: 1984 Passive Smoke Exposure: Past Smokeless Tobacco: Never Alcohol Use Standard Drinks/Week Comments Yes 28 (1 standard drink = 0.6 oz pu re alcohol) PHQ-2 Answer Date Recorded Total Score 8 [...] have money to get more. Sometimes True 03/07/2025 Purpose - Life Answer Date Recorded Purpose [...] Telephone Encounter - Aubrie Diaz LPN - 03/12/2025 1:32 PM EDT Images from the original note were not included. Pt called very upset, can see her results on [employer], message to RJW to see if he can call her today. Pt is very upset * Telephone Encounter - Riaz Rosales MD - 03/12/2025 1:32 PM EDT Notified patient that she has lung cancer. We will order PET scan and Brain MRI with/without contrast and arrange [facility] Medical Oncology consult in [place] in next week if possible. Answered all questions. Staging will depend upon the above results She can see us in one month in [place] in . Aubrie: Can you assist with scheduling. She is aware of above. rjw * Telephone Encounter - Aubrie Diaz LPN - 03/12/2025 1:32 PM EDT Orders in, pts phone went right to . Will try again! documented in this encounter Plan of Treatment Upcoming Encounters Date Type Department Care Team (Late st Contact Info) Description 06/23/2025 1:30 PM EST Appointment [facility] - Mammography/DEXA Imaging [address] [place] [address] documented as of this encounter Visit Diagnoses Not on filedocumented in this encounter Additional Health Concerns Assessment Noted Time PHQ-9 Depression Total Score: 8 04/10/20 19 8:00 AM EDT documented as of this encounter Care Teams Watchstander Relationship Specialty Start Date End Date Cindy Perez MD [address] [place] [address] PCP - General Internal Medicine 03/07/25 documented as of this encounter
--- OUTSIDE RECORDS SUMMARY | 2025-05-21 15:14 | XMS_ITS | Encounter Summary ---
Author Organization [employer] Address [facility] [id number] [address] [place] [address] Care Team Providers Care City Letter Carrier Name Role Phone Cindy Perez MD Primary Care Provider [phone] Encounter Details Date Type Department Care Team (Late st Contact Info) Description 03/12/2025 Telephone [facility] Pul[facility]/Sleep Medicine [address] [address] Aubrie Diaz LPN Social History [...] Miscellaneous Notes * Telephone Encounter - Aubrie Daiz LPN - 03/12/2025 8:14 AM EDT ----- Message from Riaz Rosales MD sent at 03/11/2025 3:49 PM EDT ----- Aubrie: Can do phone or video 320 pm rjw * Telephone Encounter - Aubrie Diaz LPN - 03/12/2025 8:14 AM EDT Attempted to call pt 2x, VM is full, will try again later. documented in this encounter Plan of Treatment Upcoming Encounters Date Type Department Care Team (Late st Contact Info) Description 06/23/2025 1:30 PM EST Appointment [facility] - Mammography/DEXA Imaging [address] [place] [phone] documented as of this encounter Visit Diagnoses Not on filedocumented in this encounter Additional Health Concerns Assessment Noted Time PHQ-9 Depression Total Score: 8 04/10/20 19 8:00 AM EDT documented as of this encounter Care Teams City Letter Carrier Relationship Specialty Start Date End Date Cindy Perez MD [address] [place] [address] PCP - General Internal Medicine 03/07/25 documented as of this encounter
--- OUTSIDE RECORDS SUMMARY | 2025-05-21 15:14 | XMS_ITS | Encounter Summary ---
Author Organization [employer] Address [facility] [id number] [address] [place] [address] Care Team Providers Care Stonemason Name Role Phone Cindy Perez MD Primary Care Provider [phone] Encounter Details Date Type Department Care Team (Late st Contact Info) Description 11/03/2020 Orders Only [facility] Pulmonary/Sleep Medicine [address] [place] [address] Verito Zurita LPN Shortness of breath Social History Tobacco Use Types Packs/Day Years [...] Info) Description 06/23/2025 1:30 PM EST Appointment [facility] - Mammography/DEXA Imaging [address] [place] [address] documented as of this encounter Procedures Procedure Name Priority Date/Time Associated Diagnosis Comments CBC W AUTO DIFF BLD Routine 10/09/2020 VITAMIN B12 Routine 10/09/2020 BASIC METABOLIC PANEL Routine 10/09/2020 XR CHEST 2 VWS Routine 10/08/2020 Shortness of breath documented in this encounter Results * Vitamin B12 (10/09/2020) us Not In System Ref Prov LAB BLOOD ORDERABLES Francy l Result Performing Organization Address [facility] de Phone Number MANUALLY TRANSCRIBED RESULTS * Basic Metabolic Panel (10/09/2020) us Not In System Ref Prov LAB BLOOD ORDERABLES Francy l Result Performing Organization Address [facility] de Phone Number MANUALLY TRANSCRIBED RESULTS * CBC W Auto Diff Bld (10/09/2020) us Not In System Ref Prov LAB BLOOD ORDERABLES Francy l Result Performing Organization Address [facility] de Phone Number MANUALLY TRANSCRIBED RESULTS * X-ray chest 2 views (10/08/2020) Anatomical Region Laterality Modality Body, Chest N/A Computed Radiogr aphy 10/08/2020 us Kim Jameson PROVIDER CONTRACTING CONSULTANT-HAND TUBE BENDER IMG DIAGNOSTIC IMAGING ORDERABLES Final Result documented in this encounter Visit Diagnoses Diagnosis Shortness of breath documented in this encounter Additional Health Concerns Assessment Noted Time PHQ-9 Depression Total Score: 8 04/10/20 19 8:00 AM EDT documented as of this encounter Care Teams Stonemason Relationship Specialty Start Date End Date Cindy Perez MD [address] [place] [address] PCP - General Internal Medicine 03/07/25 documented as of this encounter
--- OUTSIDE RECORDS SUMMARY | 2025-05-21 15:14 | XMS_ITS | Encounter Summary ---
Author Organization [facility] tem Address [facility] [id number] [address] [place] [address] Care Team Providers Care Medicaid Billing Specialist Name Role Phone Cindy Perez MD Primary Care Provider [phone] Encounter Details Date Type Department Care Team (Late st Contact Info) Description 05/15/2025 Documentation [facility] - Radiation Oncology [address] [place] [phone] Sydni Mcfarlane RN Social History Tobacco Use Types Packs/Day Years [...] on file documented as of this encounter Progress Notes * Sydni Mcfarlane RN - 05/15/2025 2:18 PM EDT Patient called to request cancellation of clinic appointment with Dr Espitia 05/16/25 She reports that during prior clinic visit she was upset and hesitant to discuss moving forward with planning and treatments, and states that Dr Espitia said 'I am here now, but if you don't like me and don't trust Doctors then you can try to go to [facility]' Patient reports she did have a Med Onc Consult at She also had stress test performed but this procedure was stopped by the technicians half way through Patient reports she was advised she must now see Dr Haywood/Cardiology [facility] to further discuss cardiology concerns Patient states she does not want to discuss treatment(s) for lung cancer until she knows extent of cardiac issues She may or may not reschedule follow up with Dr Espitia, but indicates she will likely [facility] documented in this encounter Plan of Treatment Upcoming Encounters Date Type Department Care Team (Late st Contact Info) Description 06/23/2025 1:30 PM EST Appointment [facility] - Mammography/DEXA Imaging [address] [place] [address] documented as of this encounter Visit Diagnoses Not on filedocumented in this encounter Additional Health Concerns Assessment Noted Time PHQ-9 Depression Total Score: 8 04/10/20 19 8:00 AM EDT documented as of this encounter Care Teams Medicaid Billing Specialist Relationship Specialty Start Date End Date Cindy Perez MD [address] [place] [address] PCP - General Internal Medicine 03/07/25 documented as of this encounter
--- OUTSIDE RECORDS SUMMARY | 2025-05-21 15:14 | XMS_ITS | Encounter Summary ---
Author Organization [employer] tem Address [facility] [id number] [address] [place] [address] Care Team Providers Care Special Needs Babysitter Name Role Phone Cindy Perez MD Primary Care Provider [phone] Reason for Referral * Consultation (Routine) - Pending Review Specialty Diagnoses / Procedures Referred By Contac t Referred To Contact Oncology Diagnoses Malignant neoplasm of lung, unspecified laterality, unspecified part of lung (CMS-HCC) Riaz Rosales MD [address] [place] [address] Phone: tel: fax: Sav Huggins MD [address] [place] [address] Phone: tel: fax: Referral ID Status Reason Start Date Expiration Date Visits Requested Visits Authorized [id number] Pending Review Specialty Services Required 03/12/2025 03/12/2026 1 1 * Diagnostic Imaging (Routine) - Closed Specialty Diagnoses / Procedures Referred By Contac t Referred To Contact Radiology Diagnoses Malignant neoplasm of lung, unspecified laterality, unspecified part of lung (CMS-HCC) Procedures MR brain with and without contrast Riaz Rosales MD [address] [address] Phone: tel: fax: Referral ID Status Reason Start Date Expiration Date Visits Re quested Visits Authorized [id number] Closed 03/12/2025 03/12/2026 1 1 * Diagnostic Imaging (Routine) - Closed Specialty Diagnoses / Procedures Referred By Contac t Referred To Contact Radiology Diagnoses Malignant neoplasm of lung, unspecified laterality, unspecified part of lung ([facility]CC) Procedures [place] [address] [place] [address] Phone: tel: fax: Referral ID Status Reason Start Date Expiration Date Visits Re quested Visits Authorized [id number] Closed 03/12/2025 03/12/2026 1 1 Encounter Details Date Type Department Care Team (Late st Contact Info) Description 03/12/2025 Orders Only [facility] Pulmonary/Sleep Medicine [address] [place] [address] Aubrie Diaz LPN Malignant neoplasm of lung, unspecified laterality, unspecified part of lung ([facility]-HCC) (Primary Dx) Social History Tobacco Use Types [...] Info) Description 06/23/2025 1:30 PM EST Appointment [facility] - Mammography/DEXA Imaging [address] [place] [address] Scheduled Referrals Name Type Priority Associated Diagnoses Order Schedule Ambulatory referral to Oncology Outpatient Referral Routine Malignant neoplasm of lung, unspecified laterality, unspecified part of lung (CMS-HCC) 1 Occurrences starting 03/12/2025 until 03/12/2026 documented as of this encounter Results * PET CT skull to thigh (05/02/2025 1:20 PM EDT) Anatomical Region Laterality Modality Nuc Med N/A Positron Emissio n Tomography (PET) 05/07/2025 7:31 AM EDT Narrative 05/07/2025 8:[address] SKULL TO THIGH CLINICAL HISTORY:Malignant [...] Hong Sellers MD on 05/07/2025 8:19 AM Procedure Note Hong Sellers MD - 05/07/[address] SKULL TO THIGH CLINICAL HISTORY:Malignant neoplasm of lung, unspecified laterality,unspecified part of lung (CMS-HCC) initial staging COMPARISON: None. TECHNIQUE: PET/CT was performed following intravenous administration of9.9 mCi F-18 FDG with images obtained from the skull base through the midthighs. Fasting glucose was 128 mg/dL at the time of administration. CTwas performed utilizing free breathing technique and nondiagnosticcollimation for the purposes attenuation correction and localization of radiotraceractivity. FINDINGS: Physiologic distribution of radiotracer within the neck and frontal softtissues. No avid or enlarged cervical, supraclavicular or axillary lymphnodes. There are multiple avid and enlarged right hilar and subcarinal lymphnodes compatible with metabolically active neoplasm with maximum SUV of17.3. There is no avid pulmonary consolidation. Physiologic bowel and urinary activity. No avid or enlarged mesentericretroperitoneal or pelvic lymph nodes. Multiple irregular calcifications most compatible with chronic calcificpancreatitis. IMPRESSION: 1. Evidence of a large right hilar and mediastinal lymph nodes compatiblemetabolically active neoplasm. No additional abnormal radiotraceraccumulation or scintigraphic evidence of distant metastatic disease. Finalized by Hong Sellers MD on 05/07/2025 8:19 AM us Riaz Rosales MD IMG PET ORDERABLES Final Resul t * MR brain with and without contrast (04/03/2025 1:26 PM EDT) Anatomical Region Laterality Modality Neuro, Head, Head and Neck, Neuro Covera N/A Magnetic Resonance 04/04/2025 2:25 PM EDT Narrative 04/04/2025 2:36 PM EDT STUDY: MR BRAIN W WO CONT INDICATION: [...] the right posterior frontal sinus, may be extra- axial or alignment of posterior sinus, not excluding a tiny meningioma. Dural metastasis would be considered less likely. * No additional intraparenchymal enhancing lesion, mass effect or midline shift. * Mild burden of scattered T2/FLAIR hyperintensities suggestive of chronic microvascular ischemic changes. Finalized by Manolo Toney on 04/04/2025 2:36 PM Procedure Note Manolo Toney MD - 04/04/2025 STUDY: MR BRAIN W WO CONT INDICATION: Malignant neoplasm of lung, unspecified laterality,unspecified part of lung (CMS-HCC). TECHNIQUE: * Routine multiplanar multisequence MR imaging of the brain was performedwith and without intravenous contrast. FINDINGS: No acute infarct, mass effect, midline shift or extra-axial fluidcollection. Tiny focus of susceptibility artifact near the left mesialtemporal lobe, nonspecific. Brain volume, ventricles, sulci and cisterns are age appropriate. Mild burden of periventricular, subcortical T2/FLAIR hyperintensitieswhich may reflect sequela of chronic microvascular ischemic changes. Bilateral globes, orbits are unremarkable. Mild left nasal septaldeviation. Right reese bullosa. Paranasal sinuses, mastoid air cells areclear. Major intracranial arterial flow voids appear preserved bytechnique. Small focus of enhancement measures 3 mm along the posterioraspect of the right frontal sinus (series 16, image 98). No additional intraparenchymal enhancing lesion. Possible tiny suspected lymph node in the right parotid gland,incompletely assessed. IMPRESSION: * Tiny focus of enhancement along the right posterior frontal sinus, maybe extra-axial or alignment of posterior sinus, not excluding a tinymeningioma. Dural metastasis would be considered less likely. * No additional intraparenchymal enhancing lesion, mass effect or midlineshift. * Mild burden of scattered T2/FLAIR hyperintensities suggestive ofchronic microvascular ischemic changes. Finalized by Manolo Toney on 04/04/2025 2:36 PM Riaz Rosales MD IMG MRI ORDERABLES Final Resul t documented in this encounter Visit Diagnoses Diagnosis Malignant neoplasm of lung, unspecified laterality, unspecified part of lung (CMS-HCC)- Primary Malignant neoplasm of lung, unspecified laterality, unspecified part of lung (CMS-HCC) Malignant neoplasm of lung, unspecified laterality, unspecified part of lung (CMS-HCC) documented in this encounter Additional Health Concerns Assessment Noted Time PHQ-9 Depression Total Score: 8 04/10/20 19 8:00 AM EDT documented as of this encounter Care Teams Special Needs Babysitter Relationship Specialty Start Date End Date Cindy Perez MD [address] [place] [address] PCP - General Internal Medicine 03/07/25 documented as of this encounter
--- OUTSIDE RECORDS SUMMARY | 2025-05-21 15:14 | XMS_ITS | Encounter Summary ---
Author Organization [employer] Address [facility] [id number] [address] [place] [address] Care Team Providers Care Publication Designer Name Role Phone Cindy Perez MD Primary Care Provider [phone] Encounter Details Date Type Department Care Team (Late st Contact Info) Description 04/09/2025 Orders Only [facility] - Medical Oncology [address] [place] [address] Carmen Sims RN Social History Tobacco Use Types Packs/Day [...] Info) Description 06/23/2025 1:30 PM EST Appointment [facility] - Mammography/DEXA Imaging [address] [place] [address] documented as of this encounter Visit Diagnoses Not on filedocumented in this encounter Additional Health Concerns Assessment Noted Time PHQ-9 Depression Total Score: 8 04/10/20 19 8:00 AM EDT documented as of this encounter Care Teams Publication Designer Relationship Specialty Start Date End Date Cindy Perez MD [address] [place], [place] [id number] PCP - General Internal Medicine 03/07/25 documented as of this encounter
--- OUTSIDE RECORDS SUMMARY | 2025-05-21 15:14 | XMS_ITS | Clinical Summary ---
Author Organization [employer] tem Address [id number] [address] [place] [address] Care Team Providers Care Scheme Technician Name Role Phone Cindy Perez MD Primary Care Provider [phone] Allergies Active Allergy Reactions Criticality Noted Date Comments Gadolinium-Containin g Contrast Media Hives,Other (See Comments) Medium 04/03/2025 Hives, nasal congestion Medications SPIRIVA RESPIMAT 2.5 mcg/actuation mist INHALE 2 PUFFS BY MOUTH DAILY 4 g 11 1 Active medical marijuana Inhale. Active aspirin (CHYNA LOW DOSE ASPIRIN) 81 mg Take 1 tablet (81 mg total) by mouth in the morning. 1 TABLET ORALLY ONCE A DAY. Active cholecalcifero l, vitamin D3, 2,000 units tablet Take 1 tablet (2,000 Units total) by mouth in the morning. 30 tablet 1 5 Active multivitamin (THERAGRAN) tablet Take 1 tablet by mouth in the morning. 30 tablet 1 5 Active diphenhydrAMIN E (SOMINEX) 25 mg tablet Take 2 tablets (50 mg total) by mouth every 6 (six) hours. 5 Active ondansetron (ZOFRAN) 8 mg tablet Take 1 tablet (8 mg total) by mouth every 8 (eight) hours as needed. 5 Active prochlorperazi ne (COMPAZINE) 10 mg tablet Take 1 tablet (10 mg total) by mouth every 6 (six) hours as needed. 5 Active diaper,brief,a dult,disposabl e (DAY AND NIGHT BRIEF,MEDIUM) miscIndication s:Incontinence of urine in female 1 Pad. by miscellaneous route as needed (incontinence). 120 each 1 5 Active Active Problems Problem Noted Date Diagnosed Date Bronchogenic cancer of right lung 03/17/2025 Primary hypertension 06/16/2023 Family history of uterine cancer 06/07/2023 At high risk for breast cancer 05/23/2022 Overview (05/23/2022): Based on the Tyrer-Cuzick model, this patient's lifetime risk for breast cancer is 23.57%. The [place] [employer] considers women with a 20% or greater lifetime risk for developing breast cancer is high risk . Women at risk for breast cancer may benefit from additional screening with breast MRI. Consider supplemental screening with annual breast MRI alternating every 6 months with annual screening mammogram. Dense breast tissue on mammogram 05/19/2021 Overview (05/19/2021): Based on the Tyrer-Cuzick model, this patient's lifetime risk for breast cancer is 23.57%. The [place] [employer] considers women with a 20% or greater lifetime risk for developing breast cancer is high risk . Women at risk for breast cancer may benefit from additional screening with breast MRI. Consider supplemental screening with annual breast MRI alternating every 6 months with annual screening mammogram. History of smoking 25-50 pack years 05/19/2021 Other chest pain 04/15/2021 Medical cannabis use 12/21/2016 Chronic obstructive pulmonary disease 12/21/2016 Hyperlipidemia 05/20/2014 Chronic coronary artery disease 05/20/2014 Mental health disorder Overview (08/25/2018): Major depression, Bipolar, OCD, Social phobia, PTSD, OCD Dissociated identity disparity Anxiety, Suicide attempt Tobacco use Paresthesias in left hand Overview (08/25/2018): bear bottle laceration Drug abuse Overview (08/25/2018): Marijuana 2014 ?still using / benzo 2012/ crack cocaine 2002 / crylstal meth 1995 / prior admits and out pt programs History of abnormal cervical Pap smear Overview (08/25/2018): type unknown by pt / last pap in 2014 negative for cancer and hpv Resolved Problems Problem Noted Date Diagnosed Date Resolved Date Affective psychosis, bipolar 12/21/2016 06/20/2017 AMI (acute myocardial infarction) 06/16/2023 Overview (08/25/2018): Before the age of 40. Risk factors drugs alcohol and tobacco. Angioplasty (LAST STRESS TE ST NORMALCORONARY/ INFERIOR HYPOKINESIS / WI due to spasm) Encounters Date Type Department Care Team Description 05/21/2025 Results Follow-Up [facility] - [facility] [address] [place] [address] Love Maldonado APRN-COMPUTER SYSTEM SPECIALIST Urinalysis, Urine culture 05/20/2025 11:30 AM EDT Office Visit [facility] [place] [address] [place] [address] Incontinence of urine in female (Primary Dx); Frequency of urination; Urgency of urination 05/19/2025 Travel 05/15/2025 Documentation [facility] - Medical Oncology [address] [place] [phone] Sabi Trinh, RN 05/15/[address] [facility] Oncology - Radiation Oncology [address] [place] [phone] Sydni Mcfarlane, ALEKSANDR 05/05/2025 Telephone [facility] Pul[facility] [address] [phone] Aubrie Diaz LPN 05/02/2025 10:28 AM EDT - 05/02/2025 11:59 PM EDT Hospital Encounter [facility] Ngo [place] - Pet Imaging [address] [place] [phone] Malignant neoplasm of lung, unspecified laterality, unspecified part of lung (CMS-HCC) Discharge Disposition: Home 05/02/2025 Travel 04/18/2025 11:30 AM EDT Office Visit [facility]re[facility] - Medical Oncology [address] [place] [phone] Naman Espitia MD 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) 04/18/2025 Documentation [facility] - Medical Oncology [address] [place] [phone] Carmen Sims RN 04/18/2025 Travel 04/09/2025 Orders Only [facility] Arre[facility] - Medical Oncology [address] [place] [phone] Carmen Sims RN 04/03/2025 12:18 PM EDT - 04/03/2025 11:59 PM EDT Hospital Encounter [facility] - MRI Imaging [address] [place] [address] Riaz Rosales MD Malignant neoplasm of lung, unspecified laterality, unspecified part of lung (CMS-HCC) Discharge Disposition: Home 04/03/2025 Travel 03/17/2025 10:00 AM EDT Telemedicine [facility] Arre[facility] - Medical Oncology [address] [place] [phone] Naman Espitia MD 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) 03/17/2025 Orders Only [place] L [place] [facility] - Medical Oncology [address] [place] [phone] Carmen Sims RN 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) 03/14/2025 Travel 03/12/2025 [facility] [address] [phone] Joe, Aubrie Skye, TAG WRITER Malignant neoplasm of lung, unspecified laterality, unspecified part of lung ([facility]) (Primary Dx) 03/12/2025 Telephone [facility] [address] [phone] Aubrie Diaz LPN 03/12/2025 Telephone [facility] [address] [phone] Aubrie Diaz LPN 03/10/2025 10:00 AM EDT - 03/10/2025 11:15 AM EDT Surgery [facility] Endoscopy [address] [place] [phone] Karen Clark MD BRONCHOSCOPY ALVEOLAR LAVAGE [[id number] (CPT )] 03/10/2025 9:40 AM EDT Anesthesia Event [facility] Endoscopy [address] [place] [phone] Royce Griffin MD 03/10/2025 8:34 AM EDT - 03/10/2025 11:50 AM EDT Hospital Encounter [facility] Surgery [address] [facility] [place] [phone] Karen Clark MD Hilar adenopathy (Primary Dx) Discharge Disposition: Home 03/10/2025 Travel 03/07/2025 3:00 PM EDT Support [facility] On [address] [phone] 03/07/2025 Telephone [facility] [address] [phone] Aubrie Diaz LPN 03/07/2025 Travel 03/07/2025 Telephone [facility] [address] [phone] Aubrie Diaz LPN 03/07/2025 Telephone [facility] [address] [place] [phone] Quintin Barnes, ALEKSANDR 03/07/2025 Telephone [facility] [address] [phone] Aubrie Diaz LPN 03/06/2025 11:30 AM EDT Office Visit [facility] [address] [place] [phone] Riaz Rosales MD Abnormal CT scan, chest (Primary Dx); Blood in sputum; Hilar adenopathy; Tobacco use disorder; COPD, mild (CMS-HCC) 03/06/2025 11:30 AM EDT Support Visit [facility] [address] [place] [phone] Chronic obstructive pulmonary disease, unspecified COPD type (CMS-HCC) [J44.9] (Primary Dx); Abnormal CT of the chest 03/06/2025 Telephone [facility] [address] [phone] Noelle Gomez, ALEKSANDR 03/06/2025 Orders Only [facility] [address] [place] [phone] Aubrie Diaz LPN Shortness of breath (Primary Dx) 03/06/2025 Travel 03/05/2025 Telephone [facility] [address] [place] [phone] Verito Mckeon RCP 03/04/2025 Telephone [facility] [address] [phone] Nereyda Machado, ALEKSANDR 02/24/2025 2:30 PM EDT - 02/24/2025 11:59 PM EDT [facility] [address] [place] [address] Blood in sputum Discharge Disposition: Home 02/24/2025 Travel from Last 3 Months Family History Medical History Relation Name Comments Drug abuse Brother David Learning disabilities Brother David Dyslex ia Alcohol abuse Father John Arthritis Father John Diabetes Father John Early Father John Hypertension Father John Alcohol abuse Maternal Aunt Sobeida Adames Lung cancer Maternal Grandfather Jamel Ovarian cancer Maternal Grandmother Paloma Alcohol abuse Maternal Uncle 1 Nir Drug abuse Maternal Uncle 1 Nir Early Maternal Uncle 1 Nir from a lcohol Drug abuse Maternal Uncle 2 Trey Alcohol abuse Mother Roxanna Cancer Mother Roxanna Flat Grinder Operator Depression Mother Roxanna Drug abuse Mother Roxanna Mental illness Mother Roxanna Ovarian cancer Mother Roxanna Not sure of c ancer type Liver cancer Other 1 Grandfather WAREHOUSE MAN cancer Ovarian cancer Other 2 Grandmother Anesthesia problems Neg Hx Breast cancer Neg Hx Relation Name Status Comments Brother David Lopez Maternal Aunt Sobeida Adames Maternal Grandfather Jamel Maternal Grandmother Paloma Maternal Uncle 1 Nir Maternal Uncle 2 Trey Mother Roxanna Alive Other 1 Grandfather Alive Ovarian cancer Other 2 Grandmother Alive Social History Tobacco Use Types Packs/Day Years Used Date Smoking Tobacco: Every Day Cigarettes 1 40.8 Started: 1984 Passive Smoke Exposure: Past Smokeless Tobacco: Never Tobacco Cessation:Ready to Q uit: Not Asked; Counseling Given: Not Answered Alcohol Use Standard Drinks/Week Comments Yes 28 [...] N ot on file Not on file Last Filed Vital Signs Vital Sign Reading Time Taken Comments Blood Pressure 160/90 05/20/2025 11:33 AM EDT Pulse 102 04/18/2025 11:45 AM EDT Temperature 36.2 C (97.1 F) 03/17/2025 10:08 AM EDT Respiratory Rate 20 04/18/2025 11:45 AM EDT Oxygen Saturation 96% 04/18/2025 11:45 AM EDT Inhaled Oxygen Concentration - - Weight 58.1 kg (128 lb) 05/20/2025 11:33 AM EDT Height 170.2 cm (5' 7.01 ) 05/20/2025 11:33 AM E DT Body Mass Index 20.04 05/20/2025 11:33 AM EDT Plan of Treatment Upcoming Encounters Date Type Department Care Team (Late st Contact Info) Description 06/23/2025 1:30 PM EST Appointment [facility] - Mammography/DEXA Imaging [address] [place] [phone] Health Maintenance Due Date Last Done Comments Statin Use: Cardiovascular 1970 Tobacco Counseling 1970 Depression Screening 1982 DTaP,Tdap and Td Vaccines (1 - Tdap) 1989 Zoster (Shingles) Vaccine (1 of 2) 1989 Influenza Vaccine 04/07/2025 06/11/2011 Mammogram 06/19/2025 06/19/2024, 06/07, 12/27/2021, Additional history exists Adult BMI Screening 05/20/2026 05/20/2025 Tobacco Screening 05/20/2026 05/20/2025 Pap Smear 08/05/2027 08/05/2024, 07/08, 05/31/2022, Additional history exists Medical Devices Not on file Procedures Procedure Name Priority Date/Time Associated Diagnosis Comments URINALYSIS Routine 05/20/2025 12:28 PM EDT Incontinence of urine in female Frequency of urination Urgency of urination URINE CULTURE Routine 05/20/2025 12:28 PM EDT Incontinence of urine in female Frequency of urination Urgency of urination PET CT SKULL TO THIGH Routine 05/02/2025 1:20 PM EDT Malignant neoplasm of lung, unspecified laterality, unspecified part of lung ([facility]-HCC) MR BRAIN W WO CONT Routine 04/03/2025 1: 26 PM EDT Malignant neoplasm of lung, unspecified laterality, unspecified part of lung ([facility]) SURGICAL PATHOLOGY Routine 03/10/2025 9: 56 AM EDT NON-GYNECOLOGIC CYTOLOGY Routine 03/10/2025 9:51 AM EDT REFLEXED BODY FLUID CELL COUNT DIFFERENTIAL Routine 03/10/2025 9:51 AM EDT BODY FLUID CELL COUNT Routine 03/10/2025 9:51 AM EDT AFB CULTURE CONCENTRATED INCLUDES AFB SMEAR Routine 03/10/2025 9:51 AM EDT LOWER RESP CULTURE SPUTUM CULTURE INC GRAM STAIN Routine 03/10/2025 9:51 AM EDT FUNGAL CULTURE INCLUDES FUNGAL SMEAR Routine 03/10/2025 9:51 AM EDT FL AN ELECTIVE ENDOTRACHEAL AIRWAY Routine 03/10/2025 9:47 AM EDT ENDOBRONCHIAL ULTRASOUND BRONCHOSCOPY 03/10/2025 9:40 AM EDT Pulmonary nodule FL BRNCHSC W/BRNCL ALVEOLAR LAVAGE 03/10/2025 9:40 AM EDT Pulmonary nodule BRONCHOSCOPY 03/10/2025 9:08 AM EDT PROVATION BRONCHOSCOPY Routine 8:55 AM EDT APTT Routine 03/06/2025 12:27 PM EDT Shortness of breath RESPIRATORY ALLERGY PANEL Routine 03/06/2025 12:27 PM EDT Shortness of breath IMMUNOGLOBULINS Routine 03/06/2025 12:27 PM EDT Shortness of breath PROTIME & INR Routine 03/06/2025 12:27 PM EDT Shortness of breath COMPREHENSIVE METABOLIC PANEL Routine 03/06/2025 12:27 PM EDT Shortness of breath CBC WITH AUTO DIFFERENTIAL Routine 03/06/2025 12:27 PM EDT Shortness of breath PULMONARY FUNCTION TEST Routine 03/06/20 11:[address] of the chest CT CHEST W CONT Routine 02/24/2025 3:43 PM EDT Blood in sputum COMPREHENSIVE METABOLIC PANEL STAT 02/24/2025 3:00 PM EDT Chronic kidney disease, stage 3a (CMS-HCC) PAP SMEAR Routine 08/05/2024 5:58 AM EST Cervical smear, as part of routine gynecological examination MAMM SCREENING BILATERAL W CAD Routine 06/19/2024 2:16 PM EST Screening mammogram for breast cancer from Last 3 Months or Most Recently Relevant to Health Maintenance Results * Urinalysis (05/20/2025 12:28 PM EDT) COLOR Yellow Yellow 05/20/2025 7:11 PM EDT [facility] TURBIDITY Clear Clear 05/20/2025 7:11 PM EDT [facility] SPECIFIC GRAVITY 1.005 1.003 - 1.035 05/20/2025 7:11 PM EDT [facility] NITRITE Negative Negative 05/20/2025 7:11 PM EDT [facility] PH,URINE 6.5 5.0 - 8.5 05/20/2025 7:11 PM EDT [facility] LEUKOCYTE ESTERASE Negative Negative 05/20/2025 7:11 PM EDT [facility] PROTEIN Negative Negative 05/20/2025 7:11 PM EDT [facility] KETONES (URINE) Negative Negative 7:11 PM EDT [facility] UROBILINOGEN <1.1 eu/dL <1.1 eu/dL 05/20/2025 7:11 PM EDT [facility] BILIRUBIN (URINE) Negative Negative 05/20/2025 7:11 PM EDT [facility] BLOOD/HGB Negative Negative 05/20/2025 7:11 PM EDT [facility] GLUCOSE (URINE) Negative Negative 7:11 PM EDT [facility] Urine Urine specimen collection, clean catch / Unknown 05/20/2025 12:28 PM EDT 05/20/2025 12:28 PM EDT Narrative [facility] - 05/20/2025 7:11 PM EDT Urine received without preservative. Delays in transport may affect results. Interpret with caution. A clinical correlation is recommended. us Love Maldonado GLOBAL ACCOUNT DIRECTOR-COMPUTER SYSTEM SPECIALIST URINE ORDERABLES Final R esult [facility] [address] [place] [address], * Urine culture (05/20/2025 12:28 PM EDT) CULTURE RESULTS NO GROWTH AT <1000 CFU/mL 05/21/2025 1:54 PM EDT [facility] Urine Urine specimen collection, clean catch / Unknown 05/20/2025 12:28 PM EDT 05/20/2025 12:28 PM EDT us Love Maldonado GLOBAL ACCOUNT DIRECTOR-COMPUTER SYSTEM SPECIALIST MICROBIOLOGY - GENERAL O RDERABLES Final Result Performing Organization Address [facility] Co de Phone Number [facility] [address] [place] [address], * PET CT skull to thigh (05/02/2025 [...] 05/07/2025 8:19 AM us Riaz Rosales MD IM PET ORDERABLES Final Resul t * MR [...] by Manolo Toney on 04/04/2025 2:36 PM us Riaz Rosales MD IM MRI ORDERABLES Final Resul t * Surgical Pathology (03/10/2025 9:56 AM EDT) Case Report Surgical Pathology Report Case: [id number] Authorizing Provider: Karen Clark MD Collected: 03/10/2025 0956 Ordering Location: [facility] Received: 03/10/2025 1049 - Endoscopy Pathologist: Abhinav Pierre MD Specimen: Lung, Right, RUL 11:55 AM EDT [facility] Final Diagnosis 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 11:55 AM T [facility] at 1504 EDT Comment This case has been reviewed in intradepartmental consultation with one other pathologist who concurs with the diagnosis. See also case #[id number] of right upper lobe BAL and right hilar lymph node FNA. 11:55 AM T [facility] Addendum 2 Results of PD-L1 (22C3), SemiQuant IHC, Manual dated 04/15/2025 are received from [facility], [address] [place] [address] [facility], [place], [place] and are as follows: Interpretation: Right upper lung, specimen for PD-L1 immunohistochemistry studies (clone 22C3, [employer], [place], [place]; using a proprietary detection system) ([id number]): 50% tumor cells are positive for PD-L1 (membranous positivity). Interpretation: Pre-clinical studies suggest that positive PD-L1 immunohistochemistry in tumor cells and/or tumorassociated immune cells may predict tumor response to therapy with immune checkpoint inhibitors. This result should not be used as the sole factor in determining treatment, as other factors (for example, tumor mutation burden, and microsatellite instability) have been also studied as predictive markers. Please see the complete report from [facility] (scanned on 04/16/2025). 11:55 AM EDT [facility] Addendum electronically signed by ABHINAV PIERRE MD on 04/16/2025 at 1154 EDT Addendum REQUEST FOR PD-L1 02 5 11:55 AM EDT [facility] Addendum electronically signed by ABHINAV PIERRE MD on 04/10/2025 at 0954 EDT Gross Description Received in formalin labeled HNERY CASTELLONL are multiple mckinney-schmid, focally hemorrhagic, delicate tissue bits 0.7 x 0.3 x 0.1 cm in aggregate. The specimen is filtered and submitted entirely in one cassette. Time incised: 956 Time in formalin: 956 Cold ischemic time: Less than 1 minute Time in formalin before processin hours (1,ns,[id number], m8.1) SW 11:55 AM EDT [facility] Embedded Images 11:55 AM EDT [facility] Tissue (Lung, Right) 03/10/2025 9:56 AM EDT 03/10/2025 10:49 AM EDT Comment:Pre-op diagnosis: Pulmonary nodule us Karen Clark MD PATHOLOGY/CYTOLOGY ORDERAB LES Edited Result - Final [facility] [address] [place] [address], [place] [phone] * Cytology non-gynecologic (03/10/2025 9:51 AM EDT) Case Report Medical Cytology Report Case: [id number] Authorizing Provider: Karen Clark MD Collected: 03/10/2025 0951 Ordering Location: [facility] Received: 03/10/2025 1048 - Endoscopy Pathologist: Abhinav Pierre MD Specimens: 1) - Lung, Right, Right upper lobe, BAL 2) - Lymph Node, Right hilar lymph node (R10), FNA 2:59 PM EDT [facility] Final Diagnosis 1. Lung, right upper lobe, BAL: Positive for malignancy, squamous cell carcinoma (see comment). 2. Right hilar lymph node (R10), FNA: Positive for malignancy, squamous cell carcinoma (see comment). 2:59 PM EDT [facility] at 1459 EDT Comment This case has been reviewed in intradepartmental consultation with one of the pathologist who concurs with the diagnoses. See also case #[id number] of right upper lobe biopsy. 2:59 PM EDT [facility] Intraoperative Consultation 2. Right hilar lymph node (R10), fine needle aspirate: Pass 1: Highly atypical cells, suspicious for neoplasm. Pass 2-3: Atypical. Pass 4: Atypical cells, suspicious for neoplasm. Dr. Pierre Interpretation provided at [facility], [facility] [place] [address]. 2:59 PM EDT [facility] Gross Description Received was 20ml of cloudy [...] total formalin fixation time of 12 hours. 2:59 PM EDT [facility] Embedded Images 2:59 PM EDT [facility] Bronchoalveolar Lavage (Lung, Right) 03/10/2025 9:51 AM EDT 03/10/2025 10:48 AM EDT Comment:Pre-op diagnosis: Pulmonary nodule Specimen obtained by fine needle aspiration procedure (specimen) Structure of lymph node / Unknown 03/10/2025 10:04 AM EDT 03/10/2025 10:36 AM EDT Comment:Pre-op diagnosis: Pulmonary nodule Karen Clark MD PATHOLOGY/CYTOLOGY ORDERAB LES Final Result [facility] [address] [place] [address], [place] [phone] * AFB culture concentrated includes AFB smear (03/10/2025 9:51 AM EDT) CULTURE RESULTS NO ACID FAST BACILLI ISOLATED IN 8 WEEKS 05/13/2025 8:06 AM EDT [facility] AFB SMEAR No Acid Fast Bacili (Concentrate d Smear) 05/13/2025 8:06 AM EDT [facility] Bronchoalveolar Lavage (Lung, Right) 03/10/2025 9:51 AM EDT 03/10/2025 12:17 PM EDT Comment:Pre-op diagnosis: Pulmonary nodule Karen Clark MD MICROBIOLOGY - GENERAL ORD ERABLES Final Result [facility] [address] [place] [address], [place] [phone] * (ABNORMAL) Lower resp/sputum culture inc gram stain: Patient acquired (03/10/2025 9:51 AM EDT) CULTURE RESULTS Moderate Enterobacter cloacae complex(A) 03/13/2025 8:14 AM EDT [facility] GRAM STAIN 0 White Blood Cells/LPF 03/13/2025 8:14 AM EDT [facility] GRAM STAIN 1 to 9 Squamous Epithelial Cells/LPF 03/13/2025 8:14 AM EDT [facility] [facility] GRAM STAIN 0 Ciliated Epithelial Cells/LPF 03/13/2025 8:14 AM EDT [facility] GRAM STAIN No organisms seen 03/13/2025 8:14 AM EDT [facility] Bronchoalveolar Lavage (Lung, Right) 03/10/2025 9:51 AM EDT 03/10/2025 12:18 PM EDT Comment:Pre-op diagnosis: Pulmonary nodule Narrative Organism Antibiotic Method Susceptibility Enterobacter cloacae complex PIPERACIL/TAZOBACTAM <=4.0: Susceptible Enterobacter cloacae complex Cefazolin (non-urinary) >=32.0: Resistant Enterobacter cloacae complex Cefazolin (urinary) >=32.0: Resistant Enterobacter cloacae complex Cefepime <=0.12: Susceptible Enterobacter cloacae complex Gentamicin <=1.0: Susceptible Enterobacter cloacae complex Ciprofloxacin <=0.06: Susceptible Enterobacter cloacae complex Levofloxacin <=0.12: Susceptible Karen Clark MD MICROBIOLOGY - GENERAL ORD ERABLES Final Result [facility] [address] [place] [address], * Fungal culture includes fungal smear (03/10/2025 9:51 AM EDT) CULTURE RESULTS NO FUNGUS ISOLATED AFTER 4 WEEKS 04/04/2025 8:16 AM EDT [facility] FUNGAL SMEAR No fungal elements seen 04/04/2025 8:16 AM EDT [facility] FUNGAL SMEAR On Concentrated Smear 04/04/2025 8:16 AM EDT [facility] Bronchoalveolar Lavage (Lung, Right) 03/10/2025 9:51 AM EDT 03/10/2025 12:18 PM EDT Comment:Pre-op diagnosis: Pulmonary nodule Karen Clark MD MICROBIOLOGY - GENERAL ORD ERABLES Final Result Performing Organization Address [facility]/ZIP Co de Phone Number [facility] [address] [place] [address], [place] [phone] * Body Fluid Cell Count (03/10/2025 9:51 AM EDT) Fluid color Colorless 03/11/2025 5:53 AM EDT [facility] Fluid clarity Clear 03/11/2025 5:53 AM EDT [facility] Fluid RBC Count 14 /uL 03/11/2025 5:53 AM EDT [facility] Nucleated Cell Count 39 /uL 03/11/2025 5:53 AM EDT [facility] Bronchoalveolar Lavage (Other) 03/10/2025 9:51 AM EDT 03/10/2025 12:18 PM EDT Comment:Pre-op diagnosis: Pulmonary nodule Narrative [facility] - 03/11/2025 5:53 AM EDT Assorted lining cells present. Reference values for this fluid type are undefined, as fluid accumulation is considered abnormal. us Karen Clark MD BODY FLUIDS AND STOOLS ORD ERABLES Edited Result - Final Performing Organization Address [facility] Co de Phone Number [facility] [address] [place] [address], [place] [phone] * Reflexed Body Fluid Cell Count Differential (03/10/2025 9:51 AM EDT) Neutrophils, Fluid 76 % 03/10/2025 3:23 PM EDT [facility] Lymphocyte, Fluid 5 % 03/10/2025 3:23 PM EDT [facility] Harnett/Macro, Fluid 19 % 03/10/2025 3:23 PM EDT [facility] Total Cells Counted 100 % 03/10/2025 3:23 PM EDT [facility] Bronchoalveolar Lavage (Other) 03/10/2025 9:51 AM EDT 03/10/2025 12:18 PM EDT Karen Clark MD BODY FLUIDS AND STOOLS ORD ERABLES Final Result [facility] [address] [place] [address], [place] [phone] * FL AN ELECTIVE ENDOTRACHEAL AIRWAY (03/10/2025 9:47 AM EDT) Gary Collado APRN-CRNA - 03/10/2025 9:47 AM EDT ESTRELLA Rankin 03/10/2025 9:56 AM Airway Patient location during procedure: OR Urgency: Elective Date/Time: 03/10/2025 9:47 AM Airway not difficult IV In Situ: Peripheral General Information and Staff Service Provider: ESTRELLA Rankin Placed by: ESTRELLA Rankin Patient Identified, IV Checked, Risks and Benefits Discussed, Surgical Consent, Monitors and Equipment Checked, Pre-op Evaluation and Timeout Performed Fire Risk Assessment Score: 2 Consent for Emergent Airway (if performed for an anesthetic, see related documentation for consents) Risks and benefits: risks, benefits and alternatives were discussed Indications and Patient Condition Sedation level: Deep Preoxygenated: yesPatient position: Supine MILS maintained throughout Mask difficulty assessment: Vent By Mask Indications for airway management: Anesthesia Complications: No Complicating Factors: No Final Airway Details Final airway type: ETT Endotracheal airway: Cuffed Techniques used for successful ETT Placement: Direct Laryngoscopy Cormack-Lehane Classification: Grade II Endotracheal tube insertion site: Oral No Bite Block Placed Post Intubation Trauma? No Visibility: Cords Clear Blade: Víctor Blade size: #4 Placement verified by: chest auscultation, capnography and symmetrical chest wall movement ETT size: 8.0 mm Cuff volume (mL): 5 Measured from: Lips Secured at (cm): 21 Number of other approaches attempted: 0 Number of attempts at approach: 1 Gary DE LA ROSA ANESTHESIA ORDERABLES Final Result * Bronchoscopy (03/10/2025 9:08 AM EDT) 03/10/2025 9:08 AM EDT Narrative PM CARDIOVASCULAR - 04/22/2025 11:59 AM EDT [facility] Patient Name: Sean Castellon Procedure Date: 03/10/2025 9:08 AM CSN: [id number] Date of : 1970 Admit Type: Outpatient Age: 54 Room: [place] [address] Gender: Female Note Status: Food Writer Override Attending MD: KAREN CLARK MD, Procedure: Bronchoscopy Providers: KAREN CLARK MD (Doctor), KAREN CLARK MD (Ordering Provider) Referring MD: Requesting Physician: Findings: Food Writer Override KAREN CLARK MD Number of Addenda: 0 Note Initiated On: 03/10/2025 9:08 AM Scope In: Scope Out: Procedure Note Karen Clark MD - 04/22/2025 [facility] Patient Name: Sean Castellon Procedure Date: 03/10/2025 9:08 AM CSN: [id number] Date of : 1970 Admit Type: Outpatient Age: 54 Room: [place] [address] Gender: Female Note Status: Food Writer Override Attending MD: KAREN CLARK MD, Procedure: Bronchoscopy Providers: KAREN CLARK MD (Doctor), KAREN CLARK MD (Ordering Provider) Referring MD: Requesting Physician: Findings: Food Writer Override KAREN CLARK MD Number of Addenda: 0 Note Initiated On: 03/10/2025 9:08 AM Scope In: Scope Out: us Karen Clark MD PROCEDURE/MINOR SURGICAL O RDERABLES Edited Result - Final PM CARDIOVASCULAR * Bronchoscopy Report (03/10/2025 8:55 AM EDT) Narrative SYSTEMGENERATED, DOCUMENTATION - 03/10/2025 8:55 AM EDT This order has been auto-finalized for image and report archival in PACs. *For full report details, please reach out to your physician. This image is visible to you in MyChart.* us Karen Clark MD IMG OR IMG ORDERABLES Francy l Result * Immunoglobulins (03/06/2025 12:27 PM EDT) IGA 185 68 - 378 mg/dL 03/06/2025 3:36 PM EDT [facility] IGG 856 635 - 1,741 mg/dL 03/06/2025 3:36 PM EDT [facility] IGM 227 45 - 281 mg/dL 03/06/2025 3:36 PM EDT [facility] Blood Venous blood / Unknown Venipuncture / Unknown 03/06/2025 12:27 PM EDT 03/06/2025 12:28 PM EDT us Riaz Rosales MD LAB BLOOD ORDERABLES Final Res ult [facility] [address] [place] [address], [place] [phone] * (ABNORMAL) CBC auto differential (03/06/2025 12:27 PM EDT) WBC 9.5 4 - 11 x10E9/L 03/06/2025 1:59 PM EDT [facility] RBC Count 4.81 3.8 - 5.2 X10E12/L 03/06/2025 1:59 PM EDT [facility] Hemoglobin 16.1(H) 11.7 - 15.5 g/dL 03/06/2025 1:59 PM EDT [facility] Hematocrit 46.4 35 - 47 % 03/06/2025 1:59 PM EDT [facility] MCV 96 80 - 100 fL 03/06/2025 1:59 PM EDT [facility] MCH 33.4 27 - 34 pg 03/06/2025 1:59 PM EDT [facility] MCHC 34.6 32 - 36 g/dL 03/06/2025 1:59 PM EDT [facility] RDW 13.6 11.5 - 15 % 03/06/2025 1:59 PM EDT [facility] Platelet Count 342 150 - 450 X10E9/L 03/06/2025 1:59 PM EDT [facility] MPV 8.7 7 - 12 fL 03/06/2025 1:59 PM EDT [facility] Neutrophils % 76.0 % 03/06/2025 1:59 PM EDT [facility] Lymphocytes % 17.3 % 03/06/2025 1:59 PM EDT [facility] Monocytes % 6.1 % 03/06/2025 1:59 PM EDT [facility] Eosinophils % 0.1 % 03/06/2025 1:59 PM EDT [facility] Basophils % 0.5 % 03/06/2025 1:59 PM EDT [facility] Neutrophils Absolute (A) 7.2(H) 1.5 - 6.6 10*3/uL 03/06/2025 1:59 PM EDT [facility] Lymphocytes Absolute 1.6 1.0 - 3.5 10*3/uL 03/06/2025 1:59 PM EDT [facility] Monocytes Absolute 0.6 0.0 - 0.9 10*3/uL 03/06/2025 1:59 PM EDT [facility] Eosinophils Absolute 0.0 0.0 - 0.4 10*3/uL 03/06/2025 1:59 PM EDT [facility] Basophils Absolute 0.0 0.0 - 0.2 10*3/uL 03/06/2025 1:59 PM EDT [facility] Differential Type AUTOMATED DIFFERENTIAL 03/06/2025 1:59 PM EDT [facility] Blood Venous blood / Unknown Venipuncture / Unknown 03/06/2025 12:27 PM EDT 03/06/2025 12:28 PM EDT us Riaz Rosales MD LAB BLOOD ORDERABLES Final Res ult [facility] [address] [place] [address], * Respiratory allergy panel (03/06/2025 12:27 PM EDT) DERMATOPH PTERONYSS <0.10 <0.10 kU/L 03/07/2025 10:26 AM EDT [facility] DERMATOPH FARINAE <0.10 <0.10 kU/L 025 10:26 AM EDT [facility] CAT DANDER <0.10 <0.10 kU/L 03/07/2025 10:26 AM EDT [facility] DOG DANDER <0.10 <0.10 kU/L 03/07/2025 10:26 AM EDT [facility] BERMUDA GRASS <0.10 <0.10 kU/L 03/07/2025 10:26 AM EDT [facility] JESSE <0.10 <0.10 kU/L 03/07/2025 10:26 AM EDT [facility] COCKROACH <0.10 <0.10 kU/L 03/07/2025 10:26 AM EDT [facility] IGE 14 <=165 IU/mL 03/07/2025 10:26 AM EDT [facility] PENICILLIUM CHRYSOGN <0.10 <0.10 kU/L 03/07/2025 10:26 AM EDT [facility] CLADOSPORIUM HERB <0.10 <0.10 kU/L 025 10:26 AM EDT [facility] ASPERGILLUS FUMIGATUS <0.10 <0.10 kU/L 03/07/2025 10:26 AM EDT [facility] ALTERNARIA ALTERNATA <0.10 <0.10 kU/L 03/07/2025 10:[facility] WALNUT TREE POLLEN <0.10 <0.10 kU/L 03/07/2025 10:26 AM [facility] MAPLE LEAF [place] <0.10 <0.10 kU/L 03/07/2025 10:26 [facility] [place] <0.10 <0.10 kU/L 03/07/2025 10:26 [facility] WHITE ADIS <0.10 <0.10 kU/L 03/07/2025 10:26 [facility] BOX ELDER <0.10 <0.10 kU/L 03/07/2025 10:26 AM [facility] PECAN HICKORY TREE <0.10 <0.10 kU/L 03/07/2025 10:26 AM [facility] COMMON SILVER BIRCH <0.10 <0.10 kU/L 03/07/2025 10:26 AM [facility] MOUNTAIN JUNIPER <0.10 <0.10 kU/L 03/07/20 10:26 AM [facility] MULBERRY TREE <0.10 <0.10 kU/L 03/07/2025 10:26 AM [facility] OAK <0.10 <0.10 kU/L 03/07/2025 10:26 AM [facility] ELM <0.10 <0.10 kU/L 03/07/2025 10:26 AM [facility] COMMON RAGWEED <0.10 <0.10 kU/L 03/07/2025 10:26 AM [facility] SALTWORT SHELLEY THISTLE <0.10 <0.10 kU/L 03/07/2025 10:26 AM [facility] COMMON PIGWEED <0.10 <0.10 kU/L 03/07/2025 10:26 AM [facility] ROUGH MARSHELDER <0.10 <0.10 kU/L 03/07/20 10:26 AM EDT [facility] SHEEP SORREL <0.10 <0.10 kU/L 03/07/2025 10:26 AM EDT [facility] NETTLE <0.10 <0.10 kU/L 03/07/2025 10:26 AM EDT [facility] MEADOW GRASS [place] TANA <0.10 <0.10 kU/L 03/07/2025 10:26 AM EDT [facility] GOOSEFOOT HARVEY QTR <0.10 <0.10 kU/L 03/07/2025 10:26 AM EDT [facility] COCKLEBUR <0.10 <0.10 kU/L 03/07/2025 10:26 AM EDT [facility] MUGWORT <0.10 <0.10 kU/L 03/07/2025 10:26 AM EDT [facility] JENN GRASS <0.10 <0.10 kU/L 03/07/2025 10:26 AM EDT [facility] MOUSE URINE PROTEINS <0.10 <0.10 kU/L 03/07/2025 10:26 AM EDT [facility] Blood Venous blood / Unknown Venipuncture / Unknown 03/06/2025 12:27 PM EDT 03/06/2025 12:28 PM EDT [facility] - 03/07/2025 10:26 AM EDT Class 0: Normal Class 0/1: Low level [...] Allergy, indicative of very high level sensitization. us Riaz Rosales MD LAB BLOOD ORDERABLES Final Res ult [facility] [address] [place] [address], * APTT (03/06/2025 12:27 PM EDT) APTT 28 26 - 37 sec 03/06/2025 2:17 PM EDT [facility] Blood Venous blood / Unknown Venipuncture / Unknown 03/06/2025 12:27 PM EDT 03/06/2025 12:28 PM EDT Riaz Rosales MD LAB BLOOD ORDERABLES Final Res ult Performing Organization Address City/[facility]/ZIP Co de Phone Number [facility] [address] [place] [address], * Protime-INR (03/06/2025 12:27 PM EDT) PROTIME 10.5 9.8 - 13.2 sec 03/06/2025 2:17 PM EDT [facility] INR 0.9 0.9 - 1.2 03/06/2025 2:17 PM EDT [facility] Blood Venous blood / Unknown Venipuncture / Unknown 03/06/2025 12:27 PM EDT 03/06/2025 12:28 PM EDT Riaz Rosales MD LAB BLOOD ORDERABLES Final Res ult [facility] [address] [place] [address], * (ABNORMAL) Comprehensive metabolic panel (03/06/2025 12:27 PM EDT) Only the most recent of2 resultswithin the time period is included. SODIUM 136 134 - 146 mmol/L 03/06/2025 3:36 PM EDT [facility] POTASSIUM 4.4 3.5 - 5.0 mmol/L 03/06/2025 3:36 PM [facility] CHLORIDE 96(L) 98 - 109 mmol/L 03/06/2025 3:36 PM [facility] CARBON DIOXIDE 29 22 - 32 mmol/L 03/06/2025 3:36 PM [facility] ANION GAP 11 5 - 15 mmol/L 03/06/2025 3:36 PM [facility] BLOOD UREA NITROGEN 9 5 - 23 mg/dL 03/06/2025 3:36 PM [facility] CREATININE 0.77 0.40 - 1.00 mg/dL 03/06/2025 3:36 PM [facility] Comment:METHOD TRACEABLE TO IDMO STANDARD GLUCOSE 148(H) 65 - 99 mg/dL 03/06/2025 3:36 PM [facility] CALCIUM 10.4 8.5 - 10.5 mg/dL 03/06/2025 3:36 PM [facility] TOTAL PROTEIN 7.6 6.0 - 8.0 g/dL 03/06/2025 3:36 PM [facility] ALBUMIN 5.2 3.2 - 5.3 g/dL 03/06/2025 3:36 PM [facility] ALKALINE PHOSPHATASE 86 39 - 130 U/L 03/06/2025 3:36 PM [facility] AST 23 <=41 U/L 03/06/2025 3:36 PM [facility] ALT 21 <=31 U/L 03/06/2025 3:36 PM [facility] BILIRUBIN,TOTAL 0.5 0.3 - 1.2 mg/dL 03/06/2025 3:36 PM [facility] EGFR Non-Race Dependent >90 >=60 ml/min/1.7 3sq.m 03/06/2025 3:36 PM [facility] Comment: Reported eGFR is based on the CKD-EPI 2020 equation that does not use a race coefficient. Blood Venous blood / Unknown Venipuncture / Unknown 03/06/2025 12:27 PM EDT 03/06/2025 12:28 PM EDT us Riaz Rosales MD LAB BLOOD ORDERABLES Final Res ult Performing Organization Address City/[facility]/ZIP Co de Phone Number [facility] [address] [place] [address], [place] [phone] * Pulmonary function test Spirometry (Flow Volume Loop) w/ DLCO (diffusion study) (03/06/2025 11:38 AM EDT) Impressions MANUALLY TRANSCRIBED RESULTS - 03/06/2025 11:38 AM EDT Pulmonary findings suggest a mild obstructive ventilatory defect. Forced vital capacity is 85% predicted and FEV1 is 2.2 L, 74% predicted. Expiratory flow rates are mildly reduced. Slow vital capacity and inspiratory capacity are normal Diffusing capacity is normal. Clinical correlation is advised. Riaz Rosales MD PFT ORDERABLES Edited Result - Final Performing Organization Address City/[facility] Co de Phone Number MANUALLY TRANSCRIBED RESULTS * CT chest with contrast (02/24/2025 3:43 PM EDT) Anatomical Region Laterality Modality Body, Lung, Chest, Body Covera N/A C omputed Tomography 03/01/2025 12:5 7 AM EDT Narrative 03/01/2025 1:[address] CHEST WITH CONTRAST HISTORY: Blood in [...] Alfredo Castro MD on 03/01/2025 1:01 AM Procedure Note Jose Alfredo Castro MD - 03/01/2025 CT CHEST WITH CONTRAST HISTORY: Blood in sputum COMPARISON: 06/28/2024 TECHNIQUE: Routine CT chest with contrast. FINDINGS: No airspace disease. Sequela of old granulomatous disease. There isabnormal bronchial wall thickening in the right upper lobe bronchus withenlarged adjacent right hilar lymph nodes measuring up to 1.8 x 1.1 cm insize (axial image 54). Pancreatic head parenchymal calcifications relatedto sequela of chronic pancreatitis. Unchanged mildly enlarged left para-aortic lymphnode. No pleural or pericardial effusions. The thoracic aorta isunremarkable. The central pulmonary arteries are unremarkable. Coronaryartery calcifications. Visualized structures in the lower neck areunremarkable. Visualized chest wall structures are unremarkable. No acute osseousabnormalities or aggressive osseous lesions. IMPRESSION: * Abnormal bronchial wall thickening in the right upper lobe bronchuswith adjacent enlarged right hilar lymph nodes. Findings could beinfectious or malignant in etiology. Recommend correlating withbronchoscopy. All CT scans at this facility use dose modulation, iterativereconstruction, and/or weight based dosing when appropriate to reduceradiation dose to as low as reasonably achievable. Finalized by Jose Alfredo Castro MD on 03/01/2025 1:01 AM Cindy Perez MD IM CT ORDERABLES Final Result * Pap Smear (08/05/2024 5:58 AM EST) 08/05/2024 5:58 AM EST 08/05/2024 5:59 AM EST Narrative [facility] - 08/19/2024 12:08 PM EST [facility] [address] [place] [address] Gynecologic Cytology Consultation Patient Name:SEAN CASTELLON:1970 (Age: 54)Gender:FTaken:4Reported:08/19/2024Physician(s):Silvia Parekh C.N.P. ([phone])Copy To: Rec. #:[id number]: #[id number] Final Cytologic Interpretation ThinPrep Pap Test (Cervical): Satisfactory for evaluation. NEGATIVE FOR INTRAEPITHELIAL LESION OR MALIGNANCY. [facility] [place] Interpretation [place] [address], License number: [id number]. Electronically Signed Out By MONA Del Rosario(ASCP) Date of Last Menstrual Period: (None Given) Other Clinical Conditions: Z01.419 Flat Grinder Operator exam wo/abn findings Menopausal Postmenopausal Source of Specimen ThinPrep Pap Test (Cervical) Thin Prep Pap (CHART CHANGER) Fee Code(s): G0145 The Pap test is a screening test with an inherent, but low, probability of error. The Pap test is primarily effective for the diagnosis and prevention of squamous cell carcinoma. Regular screening is critical for prevention. ThinPrep liquid-based slides, which meet the Labor Law Professor criteria for automated screening, have been screened by the ThinPrep Imaging System (as of 04/23/07) along with an additional manual rescreening by a cotton picker and, if indicated, by a pathologist. Silvia Parekh GLOBAL ACCOUNT DIRECTOR-COMPUTER SYSTEM SPECIALIST PATHOLOGY/CYTOLOGY ORDERABLES Final Result [facility] * Mammography screening bilateral with CAD (06/19/2024 2:16 PM EST) Anatomical Region Laterality Modality Breast Bilateral Mammography 06/20/2024 8:45 AM EST Narrative 06/20/2024 8:46 AM EST SEAN CASTELLON 1970 [id number] EXAM: MAMM SCREENING BILATERAL W CAD, 06/19/2024 [...] 8:46 AM 1 c MAMM 1 YR FDA Accredited Performing Facility: [facility] - Mammography[facility] [address] [id number] Procedure Note Serafin Holliday MD - 06/20/2024 SEAN CASTELLON 1970 [id number] EXAM: MAMM SCREENING BILATERAL W CAD, 06/19/2024 1:47 PM CLINICAL INDICATIONS: Screening, Screening mammogram for breast cancer COMPARISON: 06/16/2023 TECHNIQUE: Bilateral digital tomosynthesis MLO and CC views of the breastswere obtained, with creation of synthetic 2D views. Computer aideddetection was utilized. FINDINGS: The breasts are heterogeneously dense, which may obscure small masses. There are no suspicious masses, calcifications, or areas of architecturaldistortion. IMPRESSION: No mammographic evidence of malignancy. BI-RADS: BI-RADS 1 - Negative RECOMMENDATION: Routine screening mammogram in 1 year. Due to the densityand/or complexity of breast tissue on mammography, Molecular BreastImaging is recommended as a supplement to annual screening mammography.MBI can be used to help detect mammographically occult cancers in densebreasts. RISK ASSESSMENT: TC Lifetime risk: 9.0%. The patient's reported personal and family medical history was usedcalculate their Tyrer-Cuzick lifetime risk of malignancy. Scores less than20% are not considered high risk per ACR guidelines and patient shouldcontinue with the above recommendation. Finalized by Serafin Holliday MD on 06/20/2024 8:46 AM 1 c MAMM 1 YR FDA Accredited Performing Facility: [facility] - Mammography/DEXA Imaging [address] [facility] [id number] Leila Lai GLOBAL ACCOUNT DIRECTOR-CNM IMG MAMMOGRAPHY ORDERABL ES Final Result from Last 3 Months or Most Recently Relevant to Health Maintenance Insurance [place] [employer] Care Teams Scheme Technician Relationship Specialty Start Date End Date Cindy Perez MD [address] [place] [address] PCP - General Internal Medicine 03/07/25
--- OUTSIDE RECORDS SUMMARY | 2025-05-21 15:14 | XMS_ITS | Encounter Summary ---
Author Organization [facility] tem Address [facility] [id number] [address] [place] [address] Care Team Providers Care Workers Compensation Claims Assistant Name Role Phone Cindy Perez MD Primary Care Provider [phone] Encounter Details Date Type Department Care Team (Late st Contact Info) Description 05/21/2025 Results Follow-Up [facility] Women's Services - [place] [address] [place] [phone] Love Maldonado, COMMODITY BUYER-HEALTH PROGRAM SPECIALIST [address] [place] [address] Urinalysis, Urine culture Social History Tobacco Use Types Packs/Day Years [...] Info) Description 06/23/2025 1:30 PM EST Appointment [facility] - Mammography/DEXA Imaging [address] [place] [phone] documented as of this encounter Visit Diagnoses Not on filedocumented in this encounter Additional Health Concerns Assessment Noted Time PHQ-9 Depression Total Score: 8 04/10/20 19 8:00 AM EDT documented as of this encounter Care Teams Workers Compensation Claims Assistant Relationship Specialty Start Date End Date Cindy Perez MD [address] [place], [place] [phone] PCP - General Internal Medicine 03/07/25 documented as of this encounter
--- OUTSIDE RECORDS SUMMARY | 2025-05-21 15:14 | XMS_ITS | Encounter Summary ---
Author Organization [employer] Address [facility] [id number] [address] [place] [address] Care Team Providers Care Dial Equipment Engineer Name Role Phone Cindy Perez MD Primary Care Provider [phone] Encounter Details Date Type Department Care Team (Late st Contact Info) Description 11/03/2020 Telephone [facility] [address] [place] [address] Charlotte Baca LPN Social History Tobacco Use [...] Telephone Encounter - Charlotte Baca LPN - 11/03/2020 12:01 PM EDT Precert left a message saying CT denied due to not medically necessary. Peer to Peer [phone] #[id number] peer to peer 11/09/2020. Charlotte Baca LPN 11/03/20 1202 documented in this encounter Plan of Treatment Upcoming Encounters Date Type Department Care Team (Late st Contact Info) Description 06/23/2025 1:30 PM EST Appointment [facility] - Mammography/DEXA Imaging [address] [place] [phone] documented as of this encounter Visit Diagnoses Not on filedocumented in this encounter Additional Health Concerns Assessment Noted Time PHQ-9 Depression Total Score: 8 04/10/20 19 8:00 AM EDT documented as of this encounter Care Teams Dial Equipment Engineer Relationship Specialty Start Date End Date Cindy Perez MD [address] [place], [place] [phone] PCP - General Internal Medicine 03/07/25 documented as of this encounter
--- OUTSIDE RECORDS SUMMARY | 2025-05-21 15:14 | XMS_ITS | Encounter Summary ---
Author Organization [employer] tem Address [facility] [place][id number] [address] [place] [address] Care Team Providers Care Statistical Typist Name Role Phone Cindy Perez MD Primary Care Provider Encounter Details Date Type Department Care Team (Late st Contact Info) Description 05/15/2025 Documentation [facility] - Medical Oncology [address] [place] [address] Sabi Trinh, ALEKSANDR Social History Tobacco Use Types Packs/Day Years [...] as of this encounter Progress Notes * Sabi Trinh RN - 05/15/2025 2:51 PM EDT FYI ===View-only below this line=== ----- Message ----- From: Sydni Mcfarlane RN Sent: 05/15/2025 2:42 PM EDT To: [facility] Nurses Patient called to request cancellation of clinic appointment with Dr Espitia 05/16/25 She reports that during prior clinic visit she was upset and hesitant to discuss moving forward with planning and treatments, and states that Dr Espitia said 'I am here now, but if you don't like me and don't trust Doctors then you can try to go to [facility]' Patient reports she did have a Med Onc Consult at She also had stress test performed but this procedure was stopped by the technicians half way through Patient reports she was advised she must now see Dr Haywood/Cardiology [facility] to further discuss cardiology concerns Patient states she does not want to discuss treatment(s) for lung cancer until she knows extent of cardiac issues She may or may not reschedule follow up with Dr Espitia, but indicates she will likely pursue treatmentat [facility] documented in this encounter Plan of Treatment Upcoming Encounters Date Type Department Care Team (Late st Contact Info) Description 06/23/2025 1:30 PM EST Appointment [facility] - Mammography/DEXA Imaging [address] [place] [phone] documented as of this encounter Visit Diagnoses Not on filedocumented in this encounter Additional Health Concerns Assessment Noted Time PHQ-9 Depression Total Score: 8 04/10/20 19 8:00 AM EDT documented as of this encounter Care Teams Statistical Typist Relationship Specialty Start Date End Date Cindy Perez MD [address] [place], [place] [phone] PCP - General Internal Medicine 03/07/25 documented as of this encounter
--- OUTSIDE RECORDS SUMMARY | 2025-05-21 15:15 | XMS_ITS | Encounter Summary ---
Author Organization [employer] tem Address [facility] [id number] [address] [place] [address] Care Team Providers Care Inbound Sales Advisor Name Role Phone Cindy Perez MD Primary Care Provider [phone] Encounter Details Date Type Department Care Team (Late st Contact Info) Description 03/07/2025 Telephone [facility] [address] [address] Aubrie Diaz LPN Social History [...] Telephone Encounter - Aubrie Diaz LPN - 03/07/2025 3:14 PM EDT Pt informed of EBUS on 03/[address] Gómez at arrival time of 8am, Pt has stopped her ASA, labs are done, NPO, phone call was today at 3pm. (She did answer it) pt will have a city bus driver. documented in this encounter Plan of Treatment Upcoming Encounters Date Type Department Care Team (Late st Contact Info) Description 06/23/2025 1:30 PM EST Appointment [facility] - Mammography/DEXA Imaging [address] [place] [phone] documented as of this encounter Visit Diagnoses Not on filedocumented in this encounter Additional Health Concerns Assessment Noted Time PHQ-9 Depression Total Score: 8 04/10/20 19 8:00 AM EDT documented as of this encounter Care Teams Inbound Sales Advisor Relationship Specialty Start Date End Date Cindy Perez MD [address] [place] [address] PCP - General Internal Medicine 03/07/25 documented as of this encounter
--- OUTSIDE RECORDS SUMMARY | 2025-05-21 15:15 | XMS_ITS | Encounter Summary ---
Author Organization [employer] tem Address [facility] [id number] [address] [place] [address] Care Team Providers Care Tax Professional Name Role Phone Cindy Perez MD Primary Care Provider [phone] Reason for Visit * Reason Comments Med Refill Encounter Details Date Type Department Care Team (Late st Contact Info) Description 11/20/2018 Refill [facility] [address] [facility] [facility] [place] [phone] Earnestine Santos DO [address] [facility] [place] [place] [phone] Bipolar disorder, current episode depressed, severe, without psychotic features ([facility]) Social History Tobacco Use Types Packs/Day Years Used Date Smoking Tobacco: Every Day Cigarettes 1 30 Smokeless Tobacco: Never Alcohol Use Standard Drinks/Week Comments Yes 0 (1 standard drink = 0.6 oz pure alcohol) Dry since about 2017. Maximum intake had been 2-3 mixed drinks a day PHQ-2 Answer Date Recorded PHQ-2 Score 18 08/23/2018 Childcare Answer Date Recorded Childcare Unknown 10/28/2018 Employment Answer Date Recorded Employment Unknown 10/28/2018 Comments No Sex and Gender Information Value [...] 06/23/2025 1:30 PM EST Appointment [facility] - Mammography/DEXA Imaging [address] [place] [phone] documented as of this encounter Visit Diagnoses Diagnosis Bipolar disorder, current episode depressed, severe, without psychotic features ([facility]-HCC) documented in this encounter Additional Health Concerns Assessment Noted Time PHQ-9 Depression Total Score: 18 019 10:00 AM EDT documented as of this encounter Care Teams Tax Professional Relationship Specialty Start Date End Date Cindy Perez MD [address] [place] [address] PCP - General Internal Medicine 03/07/25 documented as of this encounter
--- OUTSIDE RECORDS SUMMARY | 2025-05-21 15:15 | XMS_ITS | Encounter Summary ---
Author Organization [employer] tem Address [facility] [id number] [address] [place] [address] Care Team Providers Care It Service Manager Name Role Phone Cindy Perez MD Primary Care Provider [phone] Reason for Visit * Reason Onset Date Comments Med Refill 03/25/2019 Encounter Details Date Type Department Care Team (Late st Contact Info) Description 03/25/2019 Refill [facility] [address] [facility] [address] [place] [address] [place] [address] Sofiya Dick MA Acute gastritis without hemorrhage, unspecified gastritis type Social History Tobacco Use Types Packs/Day Years Used Date Smoking Tobacco: Every Day Cigarettes 1 30 Smokeless Tobacco: Never Alcohol Use Standard Drinks/Week Comments Yes 0 (1 standard drink = 0.6 oz pure alcohol) Dry since about 2017. Maximum intake had been 2-3 mixed drinks a day PHQ-2 Answer Date Recorded PHQ-2 Score 8 01/08/2019 Childcare Answer Date Recorded Childcare Unknown 01/08/2019 Employment Answer Date Recorded Employment Unknown 01/08/2019 Comments No Sex and Gender Information Value [...] Info) Description 06/23/2025 1:30 PM EST Appointment [facility] - Mammography/DEXA Imaging [address] [place] [phone] documented as of this encounter Visit Diagnoses Diagnosis Acute gastritis without hemorrhage, unspecified gastritis type documented in this encounter Additional Health Concerns Assessment Noted Time PHQ-9 Depression Total Score: 8 01/09/20 19 10:00 AM EDT documented as of this encounter Care Teams It Service Manager Relationship Specialty Start Date End Date Cindy Perez MD [address] [place] [address] PCP - General Internal Medicine 03/07/25 documented as of this encounter
--- OUTSIDE RECORDS SUMMARY | 2025-05-21 15:15 | XMS_ITS | Encounter Summary ---
Author Organization [employer] tem Address [facility]-[id number] [address] [place] [address] Care Team Providers Care Security Installation Sales Technician Name Role Phone Cindy Perez MD Primary Care Provider [phone] Encounter Details Date Type Department Care Team (Late st Contact Info) Description 03/06/2025 Orders Only [facility] [address] [address] Aubrie Diaz LPN Shortness of breath (Primary Dx) Social History Tobacco Use Types Packs/Day Years Used Date Smoking Tobacco: Every Day Cigarettes 1 38 Smokeless Tobacco: Never Alcohol Use Standard Drinks/Week [...] Info) Description 06/23/2025 1:30 PM EST Appointment [facility] - Mammography/DEXA Imaging [address] [place] [address] documented as of this encounter Results * APTT (03/06/2025 12:27 PM EDT) APTT 28 26 - 37 sec 03/06/2025 2:17 PM EDT [facility] Blood Venous blood / Unknown Venipuncture / Unknown 03/06/2025 12:27 PM EDT 03/06/2025 12:28 PM EDT us Riaz Rosales MD LAB BLOOD ORDERABLES Final Res ult [facility] [address] [place] [address], [place] [phone] * Respiratory allergy panel (03/06/2025 12:27 PM EDT) DERMATOPH PTERONYSS <0.10 <0.10 kU/L 03/07/2025 10:26 AM EDT [facility] DERMATOPH FARINAE <0.10 <0.10 kU/L 025 10:26 AM EDT [facility] CAT DANDER <0.10 <0.10 kU/L 03/07/2025 10:26 AM EDT [facility] DOG DANDER <0.10 <0.10 kU/L 03/07/2025 10:26 AM EDT [facility] BERMUDA GRASS <0.10 <0.10 kU/L 03/07/2025 10:26 AM [facility] JESSE <0.10 <0.10 kU/L 03/07/2025 10:26 AM [facility] COCKROACH <0.10 <0.10 kU/L 03/07/2025 10:26 AM [facility] IGE 14 <=165 IU/mL 03/07/2025 10:26 AM [facility] PENICILLIUM CHRYSOGN <0.10 <0.10 kU/L 03/07/2025 10:26 AM [facility] CLADOSPORIUM HERB <0.10 <0.10 kU/L 10:26 AM [facility] ASPERGILLUS FUMIGATUS <0.10 <0.10 kU/L 03/07/2025 10:26 AM [facility] ALTERNARIA ALTERNATA <0.10 <0.10 kU/L 03/07/2025 10:26 AM [facility] WALNUT TREE POLLEN <0.10 <0.10 kU/L 03/07/2025 10:26 AM [facility] MAPLE LEAF SYCAMORE <0.10 <0.10 kU/L 03/07/2025 10:26 AM [facility] COTTONWOOD <0.10 <0.10 kU/L 03/07/2025 10:26 AM [facility] WHITE ADIS <0.10 <0.10 kU/L 03/07/2025 10:26 AM [facility] BOX ELDER <0.10 <0.10 kU/L 03/07/2025 10:26 AM [facility] PECAN HICKORY TREE <0.10 <0.10 kU/L 03/07/2025 10:26 AM [facility] COMMON SILVER BIRCH <0.10 <0.10 kU/L 03/07/2025 10:26 AM [facility] MOUNTAIN JUNIPER <0.10 <0.10 kU/L 03/07/20 10:26 AM [facility] MULBERRY TREE <0.10 <0.10 kU/L 03/07/2025 10:26 AM [facility] OAK <0.10 <0.10 kU/L 03/07/2025 10:26 AM [facility] ELM <0.10 <0.10 kU/L 03/07/2025 10:26 AM [facility] COMMON RAGWEED <0.10 <0.10 kU/L 03/07/2025 10:26 AM [facility] SALTWORT SHELLEY THISTLE <0.10 <0.10 kU/L 03/07/2025 10:26 AM [facility] COMMON PIGWEED <0.10 <0.10 kU/L 03/07/2025 10:26 AM [facility] ROUGH MARSHELDER <0.10 <0.10 kU/L 03/07/20 10:26 AM [facility] SHEEP SORREL <0.10 <0.10 kU/L 03/07/2025 10:26 AM [facility] NETTLE <0.10 <0.10 kU/L 03/07/2025 10:26 AM [facility] MEADOW GRASS [place] TANA <0.10 <0.10 kU/L 03/07/2025 10:26 AM [facility] GOOSEFOOT HARVEY QTR <0.10 <0.10 kU/L 03/07/2025 10:26 AM [facility] COCKLEBUR <0.10 <0.10 kU/L 03/07/2025 10:26 AM [facility] MUGWORT <0.10 <0.10 kU/L 03/07/2025 10:26 AM [facility] JENN GRASS <0.10 <0.10 kU/L 03/07/2025 10:26 AM [facility] MOUSE URINE PROTEINS <0.10 <0.10 kU/L 03/07/2025 10:26 AM EDT [facility] Blood Venous blood / Unknown Venipuncture / Unknown 03/06/2025 12:27 PM EDT 03/06/2025 12:28 PM EDT Narrative [facility] - 03/07/2025 10:26 AM EDT Class [...] MD LAB BLOOD ORDERABLES Final Res ult [facility] [address] [place] [address], [place] [phone] * Immunoglobulins (03/06/2025 12:27 PM EDT) IGA 185 68 - 378 mg/dL 03/06/2025 3:36 PM EDT [facility] IGG 856 635 - 1,741 mg/dL 03/06/2025 3:36 PM EDT [facility] IGM 227 45 - 281 mg/dL 03/06/2025 3:36 PM EDT [facility] Blood Venous blood / Unknown Venipuncture / Unknown 03/06/2025 12:27 PM EDT 03/06/2025 12:28 PM EDT us Riaz Rosales MD LAB BLOOD ORDERABLES Final Res ult [facility] [address] [place] [address], [place] [phone] * Protime-INR (03/06/2025 12:27 PM EDT) Pathologist [facility] PROTIME 10.5 9.8 - 13.2 sec 03/06/2025 2:17 PM EDT [facility] INR 0.9 0.9 - 1.2 03/06/2025 2:17 PM EDT [facility] Blood Venous blood / Unknown Venipuncture / Unknown 03/06/2025 12:27 PM EDT 03/06/2025 12:28 PM EDT us Riaz Rosales MD LAB BLOOD ORDERABLES Final Res ult [facility] [address] [place] [address], * (ABNORMAL) Comprehensive metabolic panel (03/06/2025 12:27 PM EDT) [facility] SODIUM 136 134 - 146 mmol/L 03/06/2025 3:36 PM EDT [facility] POTASSIUM 4.4 3.5 - 5.0 mmol/L 03/06/2025 3:36 PM EDT [facility] CHLORIDE 96(L) 98 - 109 mmol/L 03/06/2025 3:36 PM EDT [facility] CARBON DIOXIDE 29 22 - 32 mmol/L 03/06/2025 3:36 PM EDT [facility] ANION GAP 11 5 - 15 mmol/L 03/06/2025 3:36 PM EDT [facility] BLOOD UREA NITROGEN 9 5 - 23 mg/dL 03/06/2025 3:36 PM EDT [facility] CREATININE 0.77 0.40 - 1.00 mg/dL 03/06/2025 3:36 PM EDT [facility] Comment:METHOD TRACEABLE TO IDMS STANDARD GLUCOSE 148(H) 65 - 99 mg/dL 03/06/2025 3:36 PM EDT [facility] CALCIUM 10.4 8.5 - 10.5 mg/dL 03/06/2025 3:36 PM EDT [facility] TOTAL PROTEIN 7.6 6.0 - 8.0 g/dL 03/06/2025 3:36 PM EDT [facility] ALBUMIN 5.2 3.2 - 5.3 g/dL 03/06/2025 3:36 PM EDT [facility] ALKALINE PHOSPHATASE 86 39 - 130 U/L 03/06/2025 3:36 PM EDT [facility] AST 23 <=41 U/L 03/06/2025 3:36 PM EDT [facility] ALT 21 <=31 U/L 03/06/2025 3:36 PM EDT [facility] BILIRUBIN,TOTAL 0.5 0.3 - 1.2 mg/dL 03/06/2025 3:36 PM EDT [facility] EGFR Non-Race Dependent >90 >=60 ml/min/1.7 3sq.m 03/06/2025 3:36 PM EDT [facility] Comment: Reported eGFR is based on the CKD-EPI 2020 equation that does not use a race coefficient. Blood Venous blood / Unknown Venipuncture / Unknown 03/06/2025 12:27 PM EDT 03/06/2025 12:28 PM EDT us Riaz Rosales MD LAB BLOOD ORDERABLES Final Res ult [facility] [address] [place] [address], * (ABNORMAL) CBC auto differential (03/06/2025 12:27 PM EDT) WBC 9.5 4 - 11 x10E9/L 03/06/2025 1:59 PM EDT [facility] RBC Count 4.81 3.8 - 5.2 X10E12/L 03/06/2025 1:59 PM EDT [facility] Hemoglobin 16.1(H) 11.7 - 15.5 g/dL 03/06/2025 1:59 PM EDT [facility] Hematocrit 46.4 35 - 47 % 03/06/2025 1:59 PM EDT [facility] MCV 96 80 - 100 fL 03/06/2025 1:59 PM EDT [facility] MCH 33.4 27 - 34 pg 03/06/2025 1:59 PM EDT [facility] MCHC 34.6 32 - 36 g/dL 03/06/2025 1:59 PM EDT [facility] RDW 13.6 11.5 - 15 % 03/06/2025 1:59 PM EDT [facility] Platelet Count 342 150 - 450 X10E9/L 03/06/2025 1:59 PM EDT [facility] MPV 8.7 7 - 12 fL 03/06/2025 1:59 PM EDT [facility] Neutrophils % 76.0 % 03/06/2025 1:59 PM EDT [facility] Lymphocytes % 17.3 % 03/06/2025 1:59 PM EDT [facility] Monocytes % 6.1 % 03/06/2025 1:59 PM EDT [facility] Eosinophils % 0.1 % 03/06/2025 1:59 PM EDT [facility] Basophils % 0.5 % 03/06/2025 1:59 PM EDT [facility] Neutrophils Absolute (A) 7.2(H) 1.5 - 6.6 10*3/uL 03/06/2025 1:59 PM EDT [facility] Lymphocytes Absolute 1.6 1.0 - 3.5 10*3/uL 03/06/2025 1:59 PM EDT [facility] Monocytes Absolute 0.6 0.0 - 0.9 10*3/uL 03/06/2025 1:59 PM EDT [facility] Eosinophils Absolute 0.0 0.0 - 0.4 10*3/uL 03/06/2025 1:59 PM EDT [facility] Basophils Absolute 0.0 0.0 - 0.2 10*3/uL 03/06/2025 1:59 PM EDT [facility] Differential Type AUTOMATED DIFFERENTIAL 03/06/2025 1:59 PM EDT [facility] Blood Venous blood / Unknown Venipuncture / Unknown 03/06/2025 12:27 PM EDT 03/06/2025 12:28 PM EDT us Riaz Rosales MD LAB BLOOD ORDERABLES Final Res ult [facility] [address] [place] [address], documented in this encounter Visit Diagnoses Diagnosis Shortness of breath- Primary documented in this encounter Additional Health Concerns Assessment Noted Time PHQ-9 Depression Total Score: 8 04/10/20 19 8:00 AM EDT documented as of this encounter Care Teams Security Installation Sales Technician Relationship Specialty [place] [address] [place] [address] [place] [address] PCP - General Internal Medicine 03/07/25 documented as of this encounter
--- OUTSIDE RECORDS SUMMARY | 2025-05-21 15:15 | XMS_ITS | Encounter Summary ---
Author Organization [employer] s tem Address [facility] [id number] [address] [place] [address] Care Team Providers Care Mooner Name Role Phone Cindy Perez MD Primary Care Provider [phone] Encounter Details Date Type Department Care Team (Late st Contact Info) Description 03/06/2025 Telephone [facility] Pulmonary/Sleep Medicine [address] [phone] Noelle Gomez RN Social History Tobacco Use Types Packs/Day [...] encounter Miscellaneous Notes * Telephone Encounter - Noelle Gomez RN - 03/06/2025 5:23 PM EDT ----- Message from JULIA Alfred sent at 03/06/2025 3:16 PM EDT ----- Just sent a message to endo to see next opening, ill let you know! ----- Message ----- From: Karen Ramirez MD Sent: 03/06/2025 3:08 PM EDT To: Ligia Can RN; Noelle Gomez, # Sure,do they have an opening on the 6th in the morning before my clinic ? ----- Message ----- From: Noelle Gomez RN Sent: 03/06/2025 2:31 PM EDT To: Ligia Can RN; Oscar Ramirez - are you available to complete? ----- Message ----- From: Oscar Golden MD Sent: 03/06/2025 2:12 PM EDT To: Ligia Can RN; Noelle Gomez, # Let us try to schedule an EBUS, 1st available ----- Message ----- From: Riaz Rosales MD Sent: 03/06/2025 12:19 PM EDT To: Deanne Keene MD; Alicia Coles DO; Jonathan# Requesting bronch with EBUS next 7-14 days Hilar abnormal and mild hemoptysis smoker See note today Thank you. rjw documented in this encounter Plan of Treatment Upcoming Encounters Date Type Department Care Team (Late st Contact Info) Description 06/23/2025 1:30 PM EST Appointment [facility] - Mammography/DEXA Imaging [address] [place] [phone] documented as of this encounter Visit Diagnoses Not on filedocumented in this encounter Additional Health Concerns Assessment Noted Time PHQ-9 Depression Total Score: 8 04/10/20 19 8:00 AM EDT documented as of this encounter Care Teams Mooner Relationship Specialty Start Date End Date Cindy Perez MD [address] [place] [address] PCP - General Internal Medicine 03/07/25 documented as of this encounter
--- OUTSIDE RECORDS SUMMARY | 2025-05-21 15:15 | XMS_ITS | Encounter Summary ---
Author Organization [employer] Address [facility] [id number] [address] [place] [address] Care Team Providers Care Offset Press Operator Apprentice Name Role Phone Cindy Perez MD Primary Care Provider [phone] Encounter Details Date Type Department Care Team (Late st Contact Info) Description 03/04/2025 Telephone [facility] Pulmonary/Sleep Medicine [address] [phone] Nereyda Machado RN Social History Tobacco Use Types Packs/Day [...] encounter Miscellaneous Notes * Telephone Encounter - Nereyda Machado RN - 03/04/2025 10:40 AM EDT ? Hemoptysis abnormal ct ? Needs to travel * Telephone Encounter - Morenita Fraser - 03/04/2025 10:40 AM EDT Patient willing to travel, requesting appt any day between 11-3 * Telephone Encounter - Nereyda Machado RN - 03/04/2025 10:40 AM EDT Scheduled Pfts per RJW * Telephone Encounter - Nereyda Machado RN - 03/04/2025 10:40 AM EDT PET 03/28 documented in this encounter Plan of Treatment Upcoming Encounters Date Type Department Care Team (Late st Contact Info) Description 06/23/2025 1:30 PM EST Appointment [facility] - Mammography/DEXA Imaging [address] [place] [phone] documented as of this encounter Results * Pulmonary function test Spirometry (Flow Volume [...] capacity is normal. Clinical correlation is advised. us Riaz Rosales MD PFT ORDERABLES Edited Result - Final MANUALLY TRANSCRIBED RESULTS documented in this encounter Visit Diagnoses Diagnosis Abnormal CT of the chest- Primary Nonspecific (abnormal) findings on radiological and other examination of other intrathoracic organs Chronic obstructive pulmonary disease, unspecified COPD type ([facility]) [J44.9]- Primary Abnormal CT of the chest Nonspecific (abnormal) findings on radiological and other examination of other intrathoracic organs documented in this encounter Additional Health Concerns Assessment Noted Time PHQ-9 Depression Total Score: 8 04/10/20 19 8:00 AM EDT documented as of this encounter Care Teams Offset Press Operator Apprentice Relationship Specialty Start Date End Date Cindy Perez MD [address] [place] [id number] PCP - General Internal Medicine 03/07/25 documented as of this encounter
--- OUTSIDE RECORDS SUMMARY | 2025-05-21 15:15 | XMS_ITS | Encounter Summary ---
Author Organization [employer] s tem Address [facility] [id number] [address] [place] [address] Care Team Providers Care Assistant Case Manager Name Role Phone Cindy Perez MD Primary Care Provider [phone] Encounter Details Date Type Department Care Team (Late st Contact Info) Description 03/07/2025 Telephone [facility] Pulmonary/Sleep Medicine [address] [phone] Aubrie Diaz LPN Social History [...] Encounter - Aubrie Diaz LPN - 03/07/2025 11:43 AM EDT Multiple calls to reach patient regarding EBUS on Monday with DR. watson at arrival time of 8am, Surgery start time of 10am [facility] entrance b, Pt needs a armored truck driver, NPO, labs are completed. So far no phone call needed as they do not have any. Pt to stop her ASA now. Paula is going to call her as well. Sent her a mychart * Telephone Encounter - Ligia Can RN - 03/07/2025 11:43 AM EDT Call to patient. No answer. Mail box full. Unable to leave a message. documented in this encounter Plan of Treatment Upcoming Encounters Date Type Department Care Team (Late st Contact Info) Description 06/23/2025 1:30 PM EST Appointment [facility] - Mammography/DEXA Imaging [address] [place] [phone] documented as of this encounter Visit Diagnoses Not on filedocumented in this encounter Additional Health Concerns Assessment Noted Time PHQ-9 Depression Total Score: 8 04/10/20 19 8:00 AM EDT documented as of this encounter Care Teams Assistant Case Manager Relationship Specialty Start Date End Date Cindy Perez MD [address] [place], [place] [phone] PCP - General Internal Medicine 03/07/25 documented as of this encounter
--- OUTSIDE RECORDS SUMMARY | 2025-05-21 15:15 | XMS_ITS | Encounter Summary ---
Author Organization [employer] Address [facility] [id number] [address] [place] [address] Care Team Providers Care Electric Lift Truck Driver Name Role Phone Cindy Perez MD Primary Care Provider [phone] Encounter Details Date Type Department Care Team (Late st Contact Info) Description 03/07/2025 Telephone [facility] Pulmonary/Sleep Medicine [address] [phone] Aubrie Diaz LPN Social History [...] Encounter - Aubrie Diaz LPN - 03/07/2025 12:26 PM EDT Pt finally called back, she states she will not be able to get a ride Monday, she does not have help and is going to see if someone can take her, shell call me back documented in this encounter Plan of Treatment Upcoming Encounters Date Type Department Care Team (Late st Contact Info) Description 06/23/2025 1:30 PM EST Appointment [facility] - Mammography/DEXA Imaging [address] [place] [phone] documented as of this encounter Visit Diagnoses Not on filedocumented in this encounter Additional Health Concerns Assessment Noted Time PHQ-9 Depression Total Score: 8 04/10/20 19 8:00 AM EDT documented as of this encounter Care Teams Electric Lift Truck Driver Relationship Specialty Start Date End Date Cindy Perez MD [address] [place], [place] [phone] PCP - General Internal Medicine 03/07/25 documented as of this encounter
--- OUTSIDE RECORDS SUMMARY | 2025-05-21 15:16 | XMS_ITS | CCD ---
Author Organization [facility] Care Team Providers Care Slip Seat Coverer Name Role Phone PAY, GUNNER Unavailable Unavailable PAY, GUNNER Unavailable Unavailable PAY, GUNNER Unavailable Unavailable NBA WHITE Unavailable Unavailable LISBET SALCEDO Unavailable Unavailable LISBET SALCEDO Unavailable Unavailable REQUEST, NONE LISTED Unavailable Unavailable LISBET SALCEDO Unavailable Unavailable TITI THURMAN Unavailable Unavailable RISHABH BUENO Unavailable Unavailable Bakhous, Aziz Unavailable Emanuel CYBER DEFENSE ANALYST-GELATIN POWDER MIXER, Ligia S Primary Care Provider SILVIA HAMILTON Attending Unavailable JORDEN BOSWELL Referring Unavai licha EMANUEL, LIGIA S Primary Care Unavailable Elbert CYBER DEFENSE ANALYST-GELATIN POWDER MIXER, Jorden Cook Primary Care Provider Elbert CYBER DEFENSE ANALYST-GELATIN POWDER MIXER, Jorden Cook Primary Care Provider Emanuel CYBER DEFENSE ANALYST-GELATIN POWDER MIXER, Ligia S Primary Care Provider Cindy Perez MD Primary Care Provider TRESA RENO Attending Unavailable BAKHOUS, AZIZ Referring Unavailable EMANUEL, LIGIA S Primary Care Unavailable BAKHOUS, AZIZ Referring Unavailable EMANUEL, LIGIA S Primary [...] Primary Care Unavailable SHAHRIAR ROSALES Attending Unavailable EMANUEL, LIGIA S Referring Unavailable EMANUEL, LIGIA S Primary Care Unavailable EMANUEL, LIGIA S Referring Unavailable EMANUEL, LIGIA S Primary Care Unavailable SHAHRIAR ROSALES Referring Unavailable EMANUEL, LIGIA S Primary Care Unavailable EMANUEL, LIGIA S Referring Unavailable DELFIN, CINDY Primary Care Unavailable KAREN DIAMOND Admitting Unavailable KAREN DIAMOND Attending Unavailable DELFIN, CINDY Primary Care Unavailable JOSE MANUEL GALICIA Attending Unavailable VENNEPUREDDY, LUIS Referring Unavailable DELFIN, CINDY Primary Care Unavailable VENNEPUREDDY, LUIS Attending Unavailable VENNEPUREDDY, LUIS Referring Unavailable DELFIN, CINDY Primary Care Unavailable VENNEPUREDDY, LUIS Attending Unavailable SELF Referring Unavailable DELFIN, ICNDY Primary Care Unavailable Allergies Allergy Classification Reported Allergen(s) Allergy Type Date of Onset Reaction(s) Facility (8 sources) Gadolinium-Cont aining Contrast Media; Translations: [GADOLINIUM-CON TAINING CONTRAST MEDIA] Propensity to adverse reactions to drug 5 Hives, Other (See Comments) [facility] Medications Current Medications Medication Drug Class(es) Dates Sig (Normalized) Sig (Original) aspirin 81 mg delayed release oral tablet (11 sources) Platelet Aggregation Inhibitor, Nonsteroidal Anti-inflammatory Drug [...] 04/18/2025 Active take 1 capsule by mo [facility] every twenty-four hours Vitamin D3 50 MCG (1999 UT) 1 capsule Orally Once a day Active diaper,brief,adult,disposabl e (DAY AND NIGHT BRIEF,MEDIUM) misc (1 source) Start: 05-20-2025 diaper,brief,adult,disposabl e (DAY AND NIGHT BRIEF,MEDIUM) misc Indications: Incontinence of urine in female 1 Pad. by miscellaneous route as needed (incontinence). 120 each 1 05/20/2025 Active diphenhydrAMINE hydrochlorid e 25 mg oral tablet (1 source) Histami ne-1 Recepto r Antagon ist Start: 04-03-2025 take 2 tablets by mouth every six hours diphenhydrAMINE (SOMINEX) 25 mg tablet Take 2 tablets (50 mg total) by mouth every 6 (six) hours. 04/03/2025 Active doxycycline hyclate 100 mg oral capsule (3 sources) Tetracy [facility] Start: 03-06-2025 End: 03-20-2025 take 1 capsule by mouth in the morning , then take 1 capsule by mouth at bedtime doxycycline (VIBRAMYCIN) 100 mg capsule Take 1 capsule (100 mg total) by mouth in the morning and 1 capsule (100 mg total) before bedtime. Do all this for 14 days. 28 capsule 03/06/2025 03/17/2025 Discontinued medical marijuana (19 sources) medical marijuan a Inhale. Active medical marijuan a Inhale. 0 Active multivitamin (THERAGRAN) tablet (20 sources) Start: 04-18-2025 take 1 tablet by mouth in the morning multivitamin (THERAGRAN) tablet Take 1 tablet by mouth in the morning. 30 tablet 1 04/18/2025 Active Start: 05-02-2023 End: 04-18-2025 multivitamin (THERAGRAN) tab let 05/02/2023 04/18/2025 Discontinued (Reorder) Start: 05-02-2023 multivitamin ( THERAGRAN) tablet 05/02/2023 Active Start: 05-02-2023 take 1 tablet by bentley once daily multivitamin (THERAGRAN) tablet TAKE 1 [...] TAB PO Daily June 18, 2024 12:00am ondansetron 8 mg oral tablet (1 source) Serotonin-3 Receptor Antagonist Start: 05-19-2025 take 1 tablet by mouth every eight hours as needed ondansetron (ZOFRAN) 8 mg tablet Take 1 tablet (8 mg total) by mouth every 8 (eight) hours as needed. 05/19/2025 Active predniSONE 20 mg oral tablet (3 sources) Start: 03-06-2025 End: 03-20-2025 take 1 tablet by mouth once daily, then take 0.5 tablet by mouth once daily predniSONE (DELTASONE) 20 mg tablet Take 1 tablet (20 mg total) by mouth daily for 7 days, THEN 0.5 tablets (10 mg total) daily for 7 days. 11 tablet 03/06/2025 03/17/2025 Discontinued prochlorperazine 10 mg oral tablet (1 source) Phenothiazine Start: 05-19-2025 take 1 tablet by mouth every six hours as needed prochlorperazine (COMPAZINE) 10 mg tablet Take 1 tablet (10 mg total) by mouth every 6 (six) hours as needed. 05/19/2025 Active 60 actuat tiotropium 0.0025 mg/actuat inhalation spray (20 sources) Anticholinergic Start: 06-18-2024 Tiotropium Norman (Spiriva Respimat) 2.5 mcg/actuation mist Active INHALATION [...] Onset: 06-13-2017 Chronic Cancer of bronchus; lung (12 sources) Carcinoma of lung; Translations: [Malignant neoplasm [...] Chronic Coronary atherosclerosis and other heart disease (20 sources) Atherosclerotic heart disease of hoopa coronary artery without angina pectoris; Translations: [Old myocardial infarction] Onset: 05-20-2014 04-01-2020 Chronic Disorders of lipid metabolism (20 sources) Mixed hyperlipidemia; Translations: [Mixed hyperlipidemia] Onset: 05-20-2014 10-07-2023 Chronic Essential hypertension (20 sources) Hypertensive disorder; Translations: [Essential (primary) hypertension] Onset: 06-16-2023 10-07-2023 Chronic Genitourinary symptoms and ill-defined conditions (2 sources) Urinary incontinence; Translations: [Unspecified urinary incontinence] 05-20-2025 Chronic Genitourinary symptoms and ill-defined conditions (2 sources) Increased frequency of urination; Translations: [Frequency of micturition] 05-20-2025 Episodic Hypertension with complications and secondary hypertension (7 sources) Arteriolar nephrosclerosis; Translations: [Hypertensive chronic kidney disease with stage 1 through stage 4 chronic kidney disease, or unspecified chronic kidney disease] Onset: 06-12-2024 Chronic Lymphadenitis (2 sources) Hilar lymphadenopathy ; Translations: [Localized enlarged lymph nodes] Onset: 03-10-2025 03-06-2025 Episodic Miscellaneous mental health disorders (19 sources) Mental disorder; Translations: [Mental disorder, not otherwise specified] 08-25-2018 Chronic Nutritional deficiencies (7 sources) Vitamin D deficiency; Translations: [Vitamin D deficiency, unspecified] Onset: 06-12-2024 Chronic Other female genital disorders (19 sources) History of abnormal cervical Papanicolaou smear [...] Onset: 03-06-2025 Episodic Other nervous system disorders (19 sources) Paresthesia of hand ; Translations: [Paresthesia of skin] 08-25-2018 Episodic Other screening for suspected conditions (not mental disorders or infectious disease) (3 sources) CT of chest abnormal; Translations: [Abnormal findings on diagnostic imaging of other specified body structures] Onset: 03-06-2025 03-06-2025 Chronic Residual codes; unclassified (19 sources) Tobacco use and exposure - finding; Translations: [Tobacco use] 08-25-2018 Episodic Screening and history of mental health and substance abuse codes (1 source) Tobacco smoking behavior - finding 06-18-2024 Chronic Substance-related disorders (20 sources) Nicotine dependence, cigarettes, uncomplicated; Translations: [Drug abuse] Onset: 06-13-2017 08-25-2018 Chronic Unclassified (1 source) Annual Exam Onset: 08-05-2024 Unclassified (2 sources) Autogenerated Problem Onset: 03-07-2025 03-07-2025 Unclassified (2 sources) New Patient Onset: 03-06-2025 Unclassified (1 source) Pulmonary nodule Onset: 03-10-2025 Unclassified (1 source) Testing Onset: 03-06-2025 Past or Other Problems Problem Classification Problem Date Documented Date Episodic/Chronic Acute myocardial infarction (19 sources) Acute myocardial infarction; Translations: [Acute myocardial infarction, unspecified] Resolved: 06-16-2023 06-16-2023 Chronic Fluid and electrolyte disorders (1 source) Dehydration; Translations: [DEHYDRATION] Onset: 06-13-2017 Episodic Mood disorders (19 sources) Bipolar disorder; Translations: [Bipolar disorder, unspecified] Onset: 12-21-2016 Resolved: 06-20-2017 06-20-2017 Chronic Mood disorders (19 sources) Mood disorders Onset: 04-10-2019 04-10-2019 Nausea and vomiting (4 sources) Nausea with vomiting, unspecified; Translations: [NAUSEA WITH VOMITING UNSPECIFIED] Onset: 06-09-2017 Episodic Nonmalignant breast conditions (19 sources) Mammographic breast tissue appearance; Translations: [Dense breast tissue on mammogram] Onset: 05-19-2021 05-19-2021 Episodic Nonspecific chest pain (20 sources) Chest pain; Translations: [Other chest pain] Onset: 04-15-2021 04-15-2021 Episodic Other aftercare (19 sources) Marijuana user; Translations: [Other longterm (current) drug therapy] Onset: 12-21-2016 01-24-2019 Episodic Other screening for suspected conditions (not mental disorders or infectious disease) (5 sources) Patient encounter status; Translations: [Encounter for screening for malignant neoplasm of cervix] Onset: 06-19-2024 08-03-2023 Episodic Residual codes; unclassified (19 sources) At high risk for breast cancer; Translations: [Other specified personal risk factors, not elsewhere classified] Onset: 05-23-2022 05-23-2022 Episodic Residual codes; unclassified (19 sources) Family history of malignant neoplasm of uterus; Translations: [Family history of malignant neoplasm of other genital organs] Onset: 06-07-2023 06-07-2023 Episodic Screening and history of mental health and substance abuse codes (20 sources) Tobacco smoking behavior - finding; Translations: [Personal history of nicotine dependence] Onset: 05-19-2021 05-19-2021 Episodic Unclassified (1 source) Hypothermia, not associated with low environmental temperature; Translations: [HYPOTHERMIA NOT W/LOW ENVIR TEMP] Onset: 05-01-2017 Episodic Unclassified (1 source) Patient encounter status 06-18-2024 Results Test Name Value Interpretation Reference Range Facility [facility] 05-12-2025 [facility] Telephone (HEMASA) SEAN MALDONADO ([id number]) 1970 F Date Time Provider Department 05/12/25 DANIKA SAENZ During your visit today, we recorded the following information about you: Danika Saenz LSW 05/13/2025 11:04 AM Addendum SOCIAL WORK FOLLOW UP NOTE: CANCER CENTER Date of service:05/12/2025 Sean Maldonado is being seen for a follow up social work visit. Today's visit includes: patient TOPICS ADDRESSED: [employer]th [employer] PLAN: Continue follow up as needed [...] living Child/Children: Yes. How many? Daughter Hannah Gillis and son Rojelio 26 (neither child has a relation with Patient) daytime caregiver arrangements needed: Na Siblings: 1 brother(s) Grandchild(sanjuanita): 1 Home Health Provider: [facility]: NA Sonya Identified: not discussed Cheondoism/Spirituality: Unknown Are these practices or beliefs that may affect or influence treatment? Unknown EMPLOYMENT/FINANCIAL/H EALTH INSURANCE: Employment: Unemployed Income source: Social Security incremental income (SSI) Insurance: Medicaid active Prescription coverage: Yes [facility] the [facility] N/A Financial Distress: Yes, What assistance is needed? Housing, Utilities, Cost of parking, Medication costs, Medical supplies, Food/meals, and Co-pays [place]: No FOOD INSECURITY Within the past year, have you worried about how you would buy or obtain food? Not Assessed LIVING ARRANGEMENTS: Type: a tiny cabin (uninsulated and without running water; has access to a main house with water). Resides with: Alone Transportation Needs: No Transportation Needs (03/17/2025) Received from [facility] Transportation Lack of Transportation (Medical): No Lack [...] Not addressed during this encounter Scanned into EPIC: Not addressed during this encounter Health Care Durable Power of Souvenir And Novelty Maker: Not addressed during this encounter Scanned into EPIC: Not addressed during this encounter Guardianship: No [...] the patien (more content not included)... Normal [facility] CNOVon 05-09-2025 CNOV Office Visit (RADTSA ) SEAN MALDONADO ([id number]) 1970 F Date Time Provider Department 05/09/25 3:00 PM JOSE MANUEL GALICIA During your visit today, we recorded the following information about you: Temperature Pulse Respiration Blood pressure 98.9 degrees 77/minute 16/minute 143/86 Weight 58.2 kg Chencho Lambert RN 05/19/2025 11:49 PM Signed Pacemaker/Defibrillato r?N Previous Cancer(s)?N Previous Radiation?N Lupus/Scleroderma?N On body monitoring device?N Status: Post-menopausal. ChenchoALEKSANDR Lowery Saju, MD 05/19/2025 11:49 PM Signed Radiation Oncology - New Patient/Consult Note PATIENT NAME: Sean Maldonado PATIENT Signed: Jose Manuel Galicia MD I spent a total of 60 minutes on the date of the service which included preparing to see the patient, [id number] patient care, and counseling and educating the patient/family/caregiv er. This document has been created with the use of voice recognition technology. It may contain inaccuracies, misspellings, inaccurate syntax or inappropriate word context that are a result of the inadequacies/shortcomi ngs of said technology/software. 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 - ondansetron (ZOFRAN) 8 mg tablet Take 1 tablet by mouth every 8 hours as needed for nausea/vomiting. - cholecalciferol (VITAMIN D3) 50 mcg (2,000 [...] neoplasm of hilus of right lung (HCC)*05/08/2025 Follow-up and Disposition History for Encounter Date Provider Department Center 05/09/2025 [id number], SAJU YAN Bradshaw Encounter Status:Closed by JOSE MANUEL GALICIA on 05/19/25 Normal [facility] Tia 05-09-2025 CNPN Telephone (AVXRPR) SEAN MALDONADO ([id number]) 1970 F Date Time Provider Department 05/09/25 LOVE STACK During your visit today, we recorded the following information about you: Love Stack, ALEKSANDR 05/09/2025 10:29 AM Signed RADIOLOGY PROCEDURE INSTRUCTIONS: You are scheduled for a Mediport, on Tuesday May 13, 2025 You are to arrive at 12:00 pm and check in at [facility]: Radiology Outpatient Desk [facility]. You can expect to be here for 3-4 hours. Address: [place] [address] Diet: Do not eat any solid food [...] if they are not done at a [facility] facility. Helix Coil Winder/Transportation: How will you be arriving for your [...] or reschedule your procedure, please call our meat selector: Page Damon and Dahlia [phone]; 8am - 4pm M-F If you have any additional questions please call: [facility] Radiology nurses desk at [phone] 8am - 4pm M-F. Allergies As of Date: 05/09/2025 Noted Allergy Reaction GADOLINIUM-CONTAINING CONTRAST ME*04/28/2025 18 - Angioedema Date Reviewed: 04/30/2013 Reviewed by: Mckenzie Mahoney - Fully Assessed Reason for Visit: Radiology Pre Procedure Instructions [2106] Prescriptions as of 05/09/2025 - cholecalciferol (VITAMIN [...] Encounter Status:Closed by LOVE STACK on 05/09/25 [facility] CNOVSPon 05-08-2025 CNOVSP Visit (SP) Office (HEMASA) SEAN MALDONADO ([id number]) 1970 F Date Time Provider Department 05/08/25 1:20 PM LUIS BAH During your visit today, we recorded the following information about you: Temperature Pulse Respiration Blood pressure 97.7 degrees 74/minute 16/minute 156/88 Weight 58.2 kg Luis Bah MD 05/08/2025 2:32 PM Signed PATIENT NAME: Sean Maldonado CLINIC NO.: [id number] ATTENDING PHYSICIAN: Luis Bah MD DATE OF [...] BASOP , ABSBASO PATH: Surgical Pathology Order: [id number] [place] (more content not included)... [facility] Telephone (AVXRPR) SEAN MALDONADO ([id number]) 1970 F Date Time Provider Department 05/08/25 ESTELLE MADRIGAL During your visit today, we recorded the [...] Encounter Status:Closed by ESTELLE MADRIGAL on 05/08/25 [facility] CNPN Telephone (NCCAP) SEAN MALDONADO ([id number]) 1970 F Date Time Provider Department 05/08/25 LUIS BAH NCCMARK During your visit today, we recorded the following information about you: OknachoTamiko 05/08/2025 2:20 PM Signed Pascale: Patient to be concurrent. If we can schedule her education alex/ Cindy at her Simulation appointment. Allergies As of Date: 05/08/2025 Noted Allergy Reaction GADOLINIUM-CONTAINING CONTRAST ME*04/28/2025 18 - Angioedema Date Reviewed: 04/30/2013 Reviewed by: Mckenzie Mahoney - Fully Assessed Reason for Visit: Appointment [186] Prescriptions as of 05/19/2025 - prochlorperazine (COMPAZINE) 10 mg tablet Take 1 tablet by mouth every 6 hours as needed. - ondansetron (ZOFRAN) 8 mg tablet Take 1 tablet by mouth every 8 hours as needed for nausea/vomiting. - cholecalciferol (VITAMIN D3) 50 mcg (2,000 [...] (HCC)*05/08/2025 Encounter Status:Closed by TAMIKO CAMPUZANO on 05/19/25 [facility] ([id number]) 1970 F Date Time Provider Department 05/08/25 LUIS BAH NCCAP During your visit today, we recorded the following information about you: Tamiko Campuzano 05/08/2025 2:15 PM Signed Patient to be referred for port placement in [facility]. Thank you! Tamiko Campuzano Allergies As of [...] Encounter Status:Closed by TAMIKO CAMPUZANO on 05/08/25 Normal [facility] CNPN Telephone (NCCAP) SEAN MALDONADO ([id number]) 1970 F Date Time Provider Department 05/08/25 LUIS BAH During your visit today, we recorded the following information about you: Tamiko Campuzano 05/08/2025 2:22 PM Signed Patient is scheduled for her PFT's, ECHO and appointment with Dr. Flores. Patient is asking if these should be cancelled now that plans changed due to her recent PET scan? 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 I recommended concurrent chemort followed by maintenance Durvalumab. Do you agree that she is not a surgical candidate given the metastases to subcarinal lymph nodes? Thank you. Luis Bah MD 05/15/2025 4:[address] Galicia- Do you think she needs to see surgeon ? As we are doing definitive chemoRT. She is already overwhelmed with a lot of information and I do not want to confuse her. She also has transportation issues to drive to [place]. She is a very anxious person too. I will hold off on surgeon appointment for now. Thank you. Allergies As of Date: 05/08/2025 Noted Allergy Reaction GADOLINIUM-CONTAINING CONTRAST ME*04/28/2025 18 - Angioedema Date Reviewed: 04/30/2013 Reviewed by: Mckenzie Mahoney - Fully Assessed Reason for Visit: Patient Question [7603] Prescriptions as of 05/19/2025 - prochlorperazine (COMPAZINE) 10 mg tablet Take 1 tablet by mouth every 6 hours as needed. - ondansetron (ZOFRAN) 8 mg tablet Take 1 tablet by mouth every 8 hours as needed for nausea/vomiting. - cholecalciferol (VITAMIN D3) 50 mcg (2,000 [...] (HCC)*05/08/2025 Encounter Status:Closed by TAMIKO CAMPUZANO on 05/19/25 [facility] ([id number]) 1970 F Date Time Provider Department 05/07/[address] [facility] During your visit today, we recorded the [...] calling: self Please return the call at [phone]. Luis Hdez MD 05/07/2025 12:41 PM Signed Mariela- Please obtain the pet scan report. F/u with me on 05/12/25. Thank you. Balbina Treadwell 05/07/2025 12:55 PM Signed Called and spoke with patient. Patient is scheduled to see Dr Arias tomorrow 05/08 @ 1:20. Nba Shaikh RN 05/07/2025 1:05 PM Signed Report updated in [...] Status:Closed by BALBINA TREADWELL on 05/07/25 Normal [facility] PET CT SKULL TO THIGHon PET CT SKULL TO THIGH PET CT SKULL TO [facility] PET [facility] SKULL TO THIGH CLINICAL [...] Hong Sellers MD on 05/07/2025 8:19 AM Normal [facility] 05-01-2025 [facility] Telephone (HEMASA) EFRAAGATASEAN ([id number]) 1970 F Date Time Provider Department 05/01/25 DANIKA SAENZ During your visit today, we recorded the following information about you: Danika Saenz LSW 05/01/2025 3:20 PM Signed SOCIAL WORK FOLLOW UP NOTE: CANCER CENTER Date of service:05/01/25 Sean Maldonado is being seen for a follow up social work visit. Today's visit includes: patient TOPICS ADDRESSED: community resources PLAN: Continue follow up as needed Assigned WENDY listed in Care Team tab: Yes Patient called and asked if her application for the [facility] was completed and sent. WENDY emailed her intake application to Marilin Montgomery at the [facility]. WENDY gave Patient the phone number for the [facility] and encouraged her to call and follow up. Patient mentioned that she was seen yesterday by Dr. Reno, a Cardiology from [facility] at the [facility]. WENDY asked Medical Records if they were able to scan in any available records from this visit. ALEX Ag-S Allergies As of Date: 05/01/2025 Noted Allergy [...] Encounter Status:Closed by DANIKA SAENZ on 05/01/25 [facility] Office Visiton 04-30-2025 Follow-up visit [id number] Sean Maldonado 1970 Date Provider Department Center 04/30/2025 245-TRESA RENO PAMELA [place] Family History Problem Relation Age of Onset No Known Problems Mother No Known Problems Father Family Status - Relation Status Age at Mother Alive Father Level of Service:95025 NC OFFICE/OUTPATIENT ESTABLISHED MOD MDM 30 MIN Reason for Visit and Comments: Follow-up [824341] - Patient is here today for a 1 year. Patient states she hasn't been feeling well. Patient states mar 12 2025 she was diagnosed with stage 2 lung cancer Coronary Artery Disease [187] Hyperlipidemia [182] Hypertension [819222] [facility] CNOVSPon 04-28-2025 CNOVSP Visit (SP) Office (HEMASA) SEAN MALDONADO ([id number]) 1970 F Date Time Provider Department 04/28/25 3:00 PM LUIS BAH During your visit today, we recorded the following information about you: Temperature Pulse Respiration Blood pressure 97.6 degrees 80/minute 16/minute 142/82 Weight 59 kg Luis Bah MD 04/28/2025 4:33 PM Signed PATIENT NAME: Sean Maldonado CLINIC NO.: [id number] ATTENDING PHYSICIAN: Luis Bah MD DATE OF [...] BASOP , ABSBASO PATH: Surgical Pathology Order: [id number] Component 1 mo ago Case Report Surgical Pathology Report Case: [id number] Authorizing Provider: Karen Diamond MD Collected: 03/10/2025 0956 Ordering Location: [facility] Received: 03/10/2025 1049 - Endoscopy Pathologist: Abhinav Pierre MD Specimen: Lung, Right, RUL Final Diagnosis 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 (more content not included)... Normal [facility] CNPNon 04-28-2025 CNPN Telephone (NCCAP) SEAN MALDONADO ([id number]) 1970 F Date Time Provider Department 04/28/25 LUIS BAH During your visit today, we recorded the following information about you: Nury Hui 04/28/2025 4:07 PM Signed Sean Maldonado [id number] Ambreengenesis Maldonado has been referred to Cardothoracic Surgery. By Dr. Bah for lung cancer. Please assist in getting the patient scheduled. MARIO ALBERTO Forrest Rebecca, RN 04/29/2025 7:03 AM Signed Thoracic Surgery Consultation - review of records for appointment scheduling Received medical records from the office of Luis Bah [address] [place] [address] [place] [address] Patient is being referred to Unspecified Thoracic [...] is scheduled with Dr. Flores on 05/30/25. MARIO ALBERTO Forrest Referring Provider: LUIS BAH [[id number]] Allergies As of Date: 04/28/2025 Noted Allergy Reaction GADOLINIUM-CONTAINING CONTRAST ME*04/28/2025 18 - Angioedema Date Reviewed: 04/30/2013 Reviewed by: Mckenzie Mahoney - Fully Assessed Reason for Visit: Referral Request [124] Consult [173] (more content not included)... Normal [facility] MR BRAIN W WO CONTon 025 MR [...] Manolo Toney on 04/04/2025 2:36 PM Normal [facility] AF[employer] CULTURE CONCENTRATED INC [employer] SMEARon 03-10-2025 AFB CULTURE CONCENTRATED INCLUDES AFB SMEAR CULTURE RESULTS NO ACID FAST BACILLI ISOLATED IN 8 WEEKS AFB SMEAR No Acid Fast Bacili (Concentrated Smear) Normal [facility] Comment on above: Order Comment: Pre-o p diagnosis:Pulmonary nodule Performed By: #### P INR #### [facility] ([facility]) [address] [place] [address] VIR BODY FLUID CELL COUNTon FLUID RBC CT 14 /uL Normal [facility] Comment on above: Order Comment: Pre-o p diagnosis: Pulmonary nodule Assorted lining cells present. Reference values for this fluid type are undefined, as fluid accumulation is considered abnormal. Performed By: #### B FCT #### [facility] ([facility]) [address] [place] [address] 39 /uL Normal [facility] Comment on above: Order Comment: Pre-o p diagnosis: Pulmonary nodule Assorted lining cells present. Reference values for this fluid type are undefined, as fluid accumulation is considered abnormal. Performed By: #### B FCT #### [facility] ([facility]) [address] [place] [address] VIR PM FLUID CLARITY Clear Normal [facility] Comment on above: Order Comment: Pre-o p diagnosis: Pulmonary nodule Assorted lining cells present. Reference values for this fluid type are undefined, as fluid accumulation is considered abnormal. Performed By: #### B FCT #### [facility] ([facility]) [address] [place] [address] VIR PM FLUID COLOR Colorless Normal [facility] Comment on above: Order Comment: Pre-o p diagnosis: Pulmonary nodule Assorted lining cells present. Reference values for this fluid type are undefined, as fluid accumulation is considered abnormal. Performed By: #### B FCT #### [facility] ([facility]) [address] [place] [address] VIR FUNGAL CULTURE INCLUDES DAQUAN AL SMEARon 03-10-2025 FUNGAL CULTURE INCLUDES FUNGAL SMEAR CULTURE RESULTS NO FUNGUS ISOLATED AFTER 4 WEEKS FUNGAL SMEAR No fungal elements seen On Concentrated Smear Normal [facility] Comment on above: Order Comment: Pre-o p diagnosis: Pulmonary nodule Performed By: #### F BRONSON #### [facility] ([facility]) [address] [place] [address] VIR LOWER RESP CULTURE SPUTUM CU LTURE [...] <=^0.06 F Levofloxacin S <=^0.12 F Susceptible [facility] Comment on above: Order Comment: Pre-o p diagnosis: Pulmonary nodule Performed By: #### L RT #### [facility] ([facility]) [address] [place] [address] VIR [place] GENERIC ORDERon 025 [place] GENERIC ORDER [facility] GENERIC ORD ER Cancelled Normal [facility] Comment on above: Order Comment: Pre-o p diagnosis:Pulmonary nodule REFLEXED BODY FLUID CELL COU NT DIFFERENTIALon 03-10-2025 FLUID LYMPHOCYTE RELATIVE PERCENT BY MANUAL COUNT 5 % Normal [facility] Comment on above: Order Comment: Pre-o p diagnosis: Pulmonary nodule Performed By: #### B FCT1 #### [facility] ([facility]) [address] [place] [address] VIR FLUID MACROPHAGE RELATIVE PERCENT BY MANUAL COUNT 19 % Normal [facility] Comment on above: Order Comment: Pre-o p diagnosis: Pulmonary nodule Performed By: #### B FCT1 #### [facility] ([facility]) [address] [place] [address] VIR FLUID NEUTROPHILS RELATIVE PERCENT BY MANUAL COUNT 76 % Normal [facility] Comment on above: Order Comment: Pre-o p diagnosis: Pulmonary nodule Performed By: #### B FCT1 #### [facility] ([facility]) [address] [place] [address] VIR TOTAL CELLS COUNTED 100 % Normal [facility] Comment on above: Order Comment: Pre-o p diagnosis: Pulmonary nodule Performed By: #### B FCT1 #### [facility] ([facility]) [address] [place] [address] VIR APTTon 03-06-2025 aPTT Coag (Bld) [Time] 28 s Normal 26-37 [facility] Comment on above: Performed By: #### P TT #### [facility] ([facility]) [address] [place] [address] VIR CBC WITH AUTO DIFFERENTIALon 03-06-2025 BASOPHILS ABSOLUTE COUNT (10*3/UL) BY AUTOMATED COUNT 0.0 10*3/uL Normal 0.0-0.2 [facility] Comment on above: Performed By: #### C BCA #### [facility] ([facility]) [address] [place] [address] VIR BASOPHILS RELATIVE PERCENT BY AUTOMATED COUNT 0.5 % Normal [facility] Comment on above: Performed By: #### C BCA #### [facility] ([facility]) [address] [place] [address] VIR CELLAVISION DIFFERENTIAL TYPE AUTOMATED DIFFERENTIAL Normal [facility] Comment on above: Performed By: #### C BCA #### [facility] ([facility]) [address] [place] [address] VIR Eosinophils (Bld) [#/Vol] 0.0 10*3/uL Normal 0.0-0.4 [facility] Comment on above: Performed By: #### C BCA #### [facility] ([facility]) [address] [place] [address] VIR EOSINOPHILS RELATIVE PERCENT BY AUTOMATED COUNT 0.1 % Normal [facility] Comment on above: Performed By: #### C BCA #### [facility] ([facility]) [address] [place] [address] VIR Erythrocyte distribution width (RBC) [Ratio] 13.6 % Normal 11.5-15 [facility] Comment on above: Performed By: #### C BCA #### [facility] ([facility]) [address] [place] [address] VIR Hematocrit (Bld) [Volume fraction] 46.4 % Normal 35-47 [facility] Comment on above: Performed By: #### C BCA #### [facility] ([facility]) [address] [place] [address] VIR Hemoglobin (Bld) [Mass/Vol] 16.1 g/dL High 11.7-15.5 [facility] Comment on above: Performed By: #### C BCA #### [facility] ([facility]) [address] [place] [address] VIR LYMPHOCYTES ABSOLUTE COUNT (10*3/UL) BY AUTOMATED COUNT 1.6 10*3/uL Normal 1.0-3.5 [facility] Comment on above: Performed By: #### C BCA #### [facility] ([facility]) [address] [place] [address] VIR LYMPHOCYTES RELATIVE PERCENT BY AUTOMATED COUNT 17.3 % Normal [facility] Comment on above: Performed By: #### C BCA #### [facility] ([facility]) [address] [place] [address] VIR MCH (RBC) [Entitic mass] 33.4 pg Normal 27-34 [facility] Comment on above: Performed By: #### C BCA #### [facility] ([facility]) [address] [place] [address] VIR MCHC (RBC) [Mass/Vol] 34.6 g/dL Normal 32-36 [facility] Comment on above: Performed By: #### C BCA #### [facility] ([facility]) [address] [place] [address] VIR MCV (RBC) [Entitic vol] 96 fL Normal 80-100 [facility] Comment on above: Performed By: #### C BCA #### [facility] ([facility]) [address] [place] [address] VIR MONOCYTES ABSOLUTE COUNT (10*3/UL) BY AUTOMATED COUNT 0.6 10*3/uL Normal 0.0-0.9 [facility] Comment on above: Performed By: #### C BCA #### [facility] ([facility]) [address] [place] [address] VIR MONOCYTES RELATIVE PERCENT BY AUTOMATED COUNT 6.1 % Normal [facility] Comment on above: Performed By: #### C BCA #### [facility] ([facility]) [address] [place] [address] VIR NEUTROPHILS ABSOLUTE COUNT BY AUTOMATED COUNT 7.2 10*3/uL High 1.5-6.6 [facility] Comment on above: Performed By: #### C BCA #### [facility] ([facility]) [address] [place] [address] VIR NEUTROPHILS RELATIVE PERCENT BY AUTOMATED COUNT 76.0 % Normal [facility] Comment on above: Performed By: #### C BCA #### [facility] ([facility]) [address] [place] [address] VIR Platelet mean volume (Bld) [Entitic vol] 8.7 fL Normal 7-12 [facility] Comment on above: Performed By: #### C BCA #### [facility] ([facility]) [address] [place] [address] VIR Platelets (Bld) [#/Vol] 342 10*3/uL Normal 150-450 [facility] Comment on above: Performed By: #### C BCA #### [facility] ([facility]) [address] [place] [address] VIR RBC COUNT 4.81 X10E12/L Normal 3.8-5.2 [facility] Comment on above: Performed By: #### C BCA #### [facility] ([facility]) [address] [place] [address] VIR WBC (Bld) [#/Vol] 9.5 10*3/uL Normal 4-11 [facility] Comment on above: Performed By: #### C BCA #### [facility] ([facility]) [address] [place] [address] VIR COMPREHENSIVE METABOLIC PANE Conor 03-06-2025 Albumin [Mass/Vol] 5.2 g/dL Normal 3.2-5.3 [facility] Comment on above: Performed By: #### C MP #### [facility] ([facility]) [address] [place] [address] VIR ALP [Catalytic activity/Vol] 86 U/L Normal 39-130 [facility] Comment on above: Performed By: #### C MP #### [facility] ([facility]) [address] [place] [address] VIR ALT [Catalytic activity/Vol] 21 U/L Normal <=31 [facility] Comment on above: Performed By: #### C MP #### [facility] ([facility]) [address] [place] [address] VIR Anion gap [Moles/Vol] 11 mmol/L Normal 5-15 [facility] Comment on above: Performed By: #### C MP #### [facility] ([facility]) [address] [place] [address] VIR AST [Catalytic activity/Vol] 23 U/L Normal <=41 [facility] Comment on above: Performed By: #### C MP #### [facility] ([facility]) [address] [place] [address] VIR Bilirubin [Mass/Vol] 0.5 mg/dL Normal 0.3-1.2 [facility] Comment on above: Performed By: #### C MP #### [facility] ([facility]) [address] [place] [address] VIR Calcium [Mass/Vol] 10.4 mg/dL Normal 8.5-10.5 [facility] Comment on above: Performed By: #### C MP #### [facility] ([facility]) [address] [place] [address] VIR Chloride [Moles/Vol] 96 mmol/L Low 98-109 [facility] Comment on above: Performed By: #### C MP #### [facility] ([facility]) [address] [place] [address] VIR CO2 [Moles/Vol] 29 mmol/L Normal 22-32 [facility] Comment on above: Performed By: #### C MP #### [facility] ([facility]) [address] [place] [address] VIR Creatinine [Mass/Vol] 0.77 mg/dL Normal 0.40-1.00 [facility] Comment on above: Result Comment: METH OD TRACEABLE TO IDMS STANDARD Performed By: #### C MP #### [facility] ([facility]) [address] [place] [address] VIR EGFR (CKD-EPI) NON-RACE DEPENDENT >^90 Normal >=60 [facility] Comment on above: Result Comment: Repo rted eGFR is based on the CKD-EPI 2020 equation that does not use a race coefficient. Performed By: #### C MP #### [facility] ([facility]) [address] [place] [address] VIR Glucose [Mass/Vol] 148 mg/dL High 65-99 [facility] Comment on above: Performed By: #### C MP #### [facility] ([facility]) [address] [place] [address] VIR Potassium [Moles/Vol] 4.4 mmol/L Normal 3.5-5.0 [facility] Comment on above: Performed By: #### C MP #### [facility] ([facility]) [address] [place] [address] VIR Protein [Mass/Vol] 7.6 g/dL Normal 6.0-8.0 [facility] Comment on above: Performed By: #### C MP #### [facility] ([facility]) [address] [place] [address] VIR Sodium [Moles/Vol] 136 mmol/L Normal 134-146 [facility] Comment on above: Performed By: #### C MP #### [facility] ([facility]) [address] [place] [address] VIR Urea nitrogen [Mass/Vol] 9 mg/dL Normal 5-23 [facility] Comment on above: Performed By: #### C MP #### [facility] ([facility]) [address] [place] [address] VIR IMMUNOGLOBULINSon 03-06-2025 IgA [Mass/Vol] 185 mg/dL Normal 68-378 [facility] Comment on above: Performed By: #### I MGB #### [facility] ([facility]) [address] [place] [address] VIR IgG [Mass/Vol] 856 mg/dL Normal 635-1741 [facility] Comment on above: Performed By: #### I MGB #### [facility] ([facility]) [address] [place] [address] VIR IgM [Mass/Vol] 227 mg/dL Normal 45-281 [facility] Comment on above: Performed By: #### I MGB #### [facility] ([facility]) [address] [place] [address] VIR PROTIME AND INRon 03-06-2025 INR 0.9 Normal 0.9-1.2 [facility] Comment on above: Performed By: #### P INR #### [facility] ([facility]) [address] [facility] [address] [place] [address] VIR PT Coag (PPP) [Time] 10.5 s Normal 9.8-13.2 [facility] Comment on above: Performed By: #### P INR #### [facility] ([facility]) [address] [place] [address] VIR Pulmonary function test Spir ometry (Flow [...] (diffusion study)Ordered By: Shahriar Rosales on 03-06-2025 [facility] Work Phone: RESPIRATORY ALLERGY PANELon 03-06-2025 ALTERNARIA ALTERNATA <^0.10 Normal <0.10 [facility] Comment on above: Order Comment: Class [...] sensitization. Performed By: #### R AP #### [facility] ([facility]) [address] [place] [address] VIR ASPERGILLUS FUMIGATUS <^0.10 Normal <0.10 [facility] Comment on above: Order Comment: Class 0: [...] sensitization. Performed By: #### R AP #### [facility] ([facility]) [address] [place] [address] VIR BERMUDA GRASS <^0.10 Normal <0.10 [facility] Comment on above: Order Comment: [...] sensitization. Performed By: #### R AP #### [facility] ([facility]) [address] [place] [address] VIR BOX ELDER <^0.10 Normal <0.10 [facility] Comment on above: Order Comment: [...] sensitization. Performed By: #### R AP #### [facility] ([facility]) [address] [place] [address] VIR CAT DANDER <^0.10 Normal <0.10 [facility] Comment on above: Order Comment: [...] sensitization. Performed By: #### R AP #### [facility] ([facility]) [address] [place] [address] VIR CLADOSPORIUM HERB <^0.10 Normal <0.10 [facility] Comment on above: Order Comment: [...] sensitization. Performed By: #### R AP #### [facility] ([facility]) [address] [place] [address] VIR COCKLEBUR <^0.10 Normal <0.10 [facility] Comment on above: Order Comment: [...] sensitization. Performed By: #### R AP #### [facility] ([facility]) [address] [place] [address] VIR COCKROACH <^0.10 Normal <0.10 [facility] Comment on above: Order Comment: [...] sensitization. Performed By: #### R AP #### [facility] ([facility]) [address] [place] [address] VIR COMMON PIGWEED <^0.10 Normal <0.10 [facility] Comment on above: Order Comment: [...] sensitization. Performed By: #### R AP #### [facility] ([facility]) [address] [place] [address] VIR COMMON RAGWEED <^0.10 Normal <0.10 [facility] Comment on above: Order Comment: [...] sensitization. Performed By: #### R AP #### [facility] ([facility]) [address] [place] [address] VIR COMMON SILVER BIRCH <^0.10 Normal <0.10 [facility] Comment on above: Order Comment: Class [...] sensitization. Performed By: #### R AP #### [facility] ([facility]) [address] [place] [address] VIR COTTONWOOD <^0.10 Normal <0.10 [facility] Comment on above: Order Comment: [...] sensitization. Performed By: #### R AP #### [facility] ([facility]) [address] [place] [address] VIR DERMATOPH FARINAE <^0.10 Normal <0.10 [facility] Comment on above: Order Comment: [...] sensitization. Performed By: #### R AP #### [facility] ([facility]) [address] [place] [address] VIR DERMATOPH PTERONYSS <^0.10 Normal <0.10 [facility] Comment on above: Order Comment: Class [...] sensitization. Performed By: #### R AP #### [facility] ([facility]) [address] [place] [address] VIR DOG DANDER <^0.10 Normal <0.10 [facility] Comment on above: Order Comment: [...] sensitization. Performed By: #### R AP #### [facility] ([facility]) [address] [place] [address] VIR ELM <^0.10 Normal <0.10 [facility] Comment on above: Order Comment: [...] sensitization. Performed By: #### R AP #### [facility] ([facility]) [address] [place] [address] VIR GOOSEFOOT HARVEY QTR <^0.10 Normal <0.10 [facility] Comment on above: Order Comment: Class [...] sensitization. Performed By: #### R AP #### [facility] ([facility]) [address] [place] [address] VIR IGE 14 IU/mL Normal <=165 [facility] Comment on above: Order Comment: [...] sensitization. Performed By: #### R AP #### [facility] ([facility]) [address] [place] [address] VIR JENN GRASS <^0.10 Normal <0.10 [facility] Comment on above: Order Comment: [...] sensitization. Performed By: #### R AP #### [facility] ([facility]) [address] [place] [address] VIR MAPLE LEAF [place] <^0.10 Normal <0.10 [facility] Comment on above: Order Comment: Class [...] sensitization. Performed By: #### R AP #### [facility] ([facility]) [address] [place] [address] VIR [place] TANA <^0.10 Normal <0.10 [facility] Comment on above: Order Comment: Class [...] sensitization. Performed By: #### R AP #### [facility] ([facility]) [address] [place] [address] VIR MOUNTAIN JUNIPER <^0.10 Normal <0.10 [facility] Comment on above: Order Comment: [...] sensitization. Performed By: #### R AP #### [facility] ([facility]) [address] [place] [address] VIR MOUSE URINE PROTEINS <^0.10 Normal <0.10 [facility] Comment on above: Order Comment: Class [...] sensitization. Performed By: #### R AP #### [facility] ([facility]) [address] [place] [address] VIR MUGWORT <^0.10 Normal <0.10 [facility] Comment on above: Order Comment: [...] sensitization. Performed By: #### R AP #### [facility] ([facility]) [address] [place] [address] VIR MULBERRY TREE <^0.10 Normal <0.10 [facility] Comment on above: Order Comment: [...] sensitization. Performed By: #### R AP #### [facility] ([facility]) [address] [place] [address] VIR NETTLE <^0.10 Normal <0.10 [facility] Comment on above: Order Comment: [...] sensitization. Performed By: #### R AP #### [facility] ([facility]) [address] [place] [address] VIR OAK <^0.10 Normal <0.10 [facility] Comment on above: Order Comment: [...] sensitization. Performed By: #### R AP #### [facility] ([facility]) [address] [place] [address] VIR PECAN ARLETTEKORY TREE <^0.10 Normal <0.10 [facility] Comment on above: Order Comment: Class [...] sensitization. Performed By: #### R AP #### [facility] ([facility]) [address] [place] [address] VIR PENICILLIUM CHRYSOGN <^0.10 Normal <0.10 [facility] Comment on above: Order Comment: Class [...] sensitization. Performed By: #### R AP #### [facility] ([facility]) [address] [place] [address] VIR ROUGH MARSHELDER <^0.10 Normal <0.10 [facility] Comment on above: Order Comment: [...] sensitization. Performed By: #### R AP #### [facility] ([facility]) [address] [place] [address] VIR SALTWORT SHELLEY THISTLE <^0.10 Normal <0.10 [facility] Comment on above: Order Comment: Class [...] sensitization. Performed By: #### R AP #### [facility] ([facility]) [address] [place] [address] VIR SHEEP SORREL <^0.10 Normal <0.10 [facility] Comment on above: Order Comment: [...] sensitization. Performed By: #### R AP #### [facility] ([facility]) [address] [place] [address] VIR JESSE <^0.10 Normal <0.10 [facility] Comment on above: Order Comment: [...] sensitization. Performed By: #### R AP #### [facility] ([facility]) [address] [place] [address] VIR WALNUT TREE POLLEN <^0.10 Normal <0.10 [facility] Comment on above: Order Comment: Class [...] sensitization. Performed By: #### R AP #### [facility] ([facility]) [address] [place] [address] VIR WHITE ADIS <^0.10 Normal <0.10 [facility] Comment on above: Order Comment: [...] sensitization. Performed By: #### R AP #### [facility] ([facility]) [address] [place] [address] CHEST W CONTon 03-01-2025 CT [...] Castro MD on 03/01/2025 1:01 AM Normal [facility] COMPREHENSIVE METABOLIC PANE Conor 02-24-2025 Albumin [Mass/Vol] 4.7 g/dL Normal 3.2-5.3 [facility] Comment on above: Performed By: #### C BCA, CMP, 76728-8, 2777-1, 3084-1, 2731-8, 16605-4 #### [facility] ([id number]) [address] [place] [address] ALP [Catalytic activity/Vol] 85 U/L Normal 39-130 [facility] Comment on above: Performed By: #### C BCA, CMP, 51634-3, 2777-1, 3084-1, 2731-8, 60165-0 #### [facility] ([id number]) [address] [place] [address] ALT [Catalytic activity/Vol] 28 U/L Normal <=31 [facility] Comment on above: Performed By: #### C BCA, CMP, 13233-9, 2777-1, 3084-1, 2731-8, 97934-3 #### [facility] ([id number]) [address] [place] [address] Anion gap [Moles/Vol] 9 mmol/L Normal 5-15 [facility] Comment on above: Performed By: #### C BCA, CMP, 92828-0, 2777-1, 3084-1, 2731-8, 15543-0 #### [facility] ([id number]) [address] [place] [address] AST [Catalytic activity/Vol] 31 U/L Normal <=41 [facility] Comment on above: Performed By: #### C BCA, CMP, 97631-5, 7-1, 3084-1, 2731-8, 46748-2 #### [facility] ([id number]) [address] [place] [address] Bilirubin [Mass/Vol] 0.7 mg/dL Normal 0.3-1.2 [facility] Comment on above: Performed By: #### C BCA, CMP, 57602-6, 2777-1, 3084-1, 2731-8, 41912-9 #### [facility] ([id number]) [address] [place] [address] Calcium [Mass/Vol] 9.3 mg/dL Normal 8.5-10.5 [facility] Comment on above: Performed By: #### C BCA, CMP, 18034-0, 2777-1, 3084-1, 2731-8, 79088-4 #### [facility] ([id number]) [address] [place] [address] Chloride [Moles/Vol] 98 mmol/L Normal 98-109 [facility] Comment on above: Performed By: #### C BCA, CMP, 26336-0, 2777-1, 3084-1, 2731-8, 14199-7 #### [facility] ([id number]) [address] [place] [address] CO2 [Moles/Vol] 25 mmol/L Normal 22-32 [facility] Comment on above: Performed By: #### C BCA, CMP, 85907-9, 2777-1, 3084-1, 2731-8, 51932-9 #### [facility] ([id number]) [address] [place] [address] Creatinine [Mass/Vol] 0.97 mg/dL Normal 0.40-1.00 [facility] Comment on above: Result Comment: METH OD TRACEABLE TO IDMS STANDARD Performed By: #### C BCA, CMP, 08568-4, 7-1, 3084-1, 2731-8, 16450-1 #### [facility] ([id number]) [address] [place] [address] GFR/1.73 sq M.predicted among non-blacks MDRD (S/P/Bld) [Vol rate/Area] 69 mL/min/{1.73_m2} Normal >=60 [facility] Comment on above: Result Comment: eGFR not reported due to non-numeric value for Creatinine. Reported eGFR is based on the CKD-EPI 2020 equation that does not use a race coefficient. Performed By: #### C BCA, CMP, 27053-8, 2777-1, 3084-1, 2731-8, 98353-2 #### [facility] ([id number]) [address] [place] [address] Glucose [Mass/Vol] 108 mg/dL High 65-99 [facility] Comment on above: Performed By: #### C BCA, CMP, 34284-5, 2777-1, 3084-1, 2731-8, 64346-4 #### [facility] ([id number]) [address] [address] [place] [address] Potassium [Moles/Vol] 4.0 mmol/L Normal 3.5-5.0 [facility] Comment on above: Performed By: #### C BCA, CMP, 08667-6, 2777-1, 3084-1, 2731-8, 35442-7 #### [facility] ([id number]) [address] [facility] [address] [place] [address] Protein [Mass/Vol] 7.5 g/dL Normal 6.0-8.0 [facility] Comment on above: Performed By: #### C BCA, CMP, 60650-6, 2777-1, 3084-1, 2731-8, 30783-8 #### [facility] ([id number]) [address] [facility] [address] [place] [address] Sodium [Moles/Vol] 132 mmol/L Low 134-146 [facility] Comment on above: Performed By: #### C BCA, CMP, 27554-4, 2777-1, 3084-1, 2731-8, 15734-3 #### [facility] ([id number]) [address] [facility] [address] [place] [address] Urea nitrogen [Mass/Vol] 13 mg/dL Normal 5-23 [facility] Comment on above: Performed By: #### C BCA, CMP, 98696-4, 2777-1, 3084-1, 2731-8, 47477-1 #### [facility] ([id number]) [address] [address] [place] [address] Cytologyon 08-05-2024 Cytology Normal [facility] Comment on above: Result Comment: [facility] [address] [place] [address] Gynecologic Cytology Consultation Patient Name:SEAN MALDONADO:1970 (Age: 54)Gender:FTaken:08/05/2024eported:08/19/2024Physician(s):Ronna Hamilton C.N.P. ([phone])Copy To: Rec. #:[id number]: #[id number] Final Cytologic Interpretation ThinPrep Pap Test (Cervical): Satisfactory for evaluation. NEGATIVE FOR INTRAEPITHELIAL LESION OR MALIGNANCY. [facility] [place]24 Interpretation performed at [facility], [address] [place] [address], License number: [id number]. 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 The Pap test is primarily effective for the diagnosis and prevention of squamous cell carcinoma. Regular screening is critical for prevention. ThinPrep liquid-based slides, which meet the Registered Nurse Ambulatory criteria for automated screening, have been screened by the ThinPrep Imaging System (as of 04/23/07) along with an additional manual rescreening by a aerospace control and warning systems and, if indicated, by a pathologist. CT [...] aided detection for pulmonary nodules?was performed utilizing Video[employer].via software.? FINDINGS: Diagnostic quality: Satisfactory Lung nodules: [...] Garrison Lambert MD on 07/01/2024 11:32 AM I, Eran Tello MD have personally reviewed the image(s) and agree with and/or edited the report Finalized by Eran Tello MD on 07/01/2024 1:00 PM 2 LDCT 1 Yr Normal [facility] MAMM SCREENING BILATERAL W C quill machine tender 06-20-2024 MAMM SCREENING BILATERAL W CAD MAMM SCREENING BILATERAL W CAD SEAN MALDONADO 1970 [id number] EXAM: MAMM SCREENING BILATERAL W CAD, 06/19/2024 [...] AM 1 c MAMM 1 YR Normal [facility] US RETROPERITONEAL COMPLETEo n 06-13-2024 US [...] Kidd MD on 06/13/2024 8:57 AM Normal [facility] CBC AND AUTO DIFFon 06-12-20 24 ABSOLUTE BASOPHIL 0.1 X10E9/L Normal 0.0-0.2 [facility] Comment on above: Performed By: #### C BCA, CMP, 36927-9, 2777-1, 3084-1, 2731-8, 45566-9 #### [facility] ([id number]) [address] [place] [address] ABSOLUTE NEUTROPHIL 5.5 X10E9/L Normal 1.5-6.6 [facility] Comment on above: Performed By: #### C BCA, CMP, 71195-7, 2777-1, 3084-1, 2731-8, 56838-4 #### [facility] ([id number]) [address] [place] [address] Basophils/100 WBC (Bld) 1.6 % Normal [facility] Comment on above: Performed By: #### C BCA, CMP, 61536-8, 7-1, 3084-1, 2731-8, 77405-2 #### [facility] ([id number]) [address] [place] [address] Eosinophils (Bld) [#/Vol] 0.0 10*3/uL Normal 0.0-0.4 [facility] Comment on above: Performed By: #### C BCA, CMP, 00555-5, 7-1, 3084-1, 2731-8, 04916-8 #### [facility] ([id number]) [address], [address] [place] [address] Eosinophils/100 WBC (Bld) 0.3 % Normal [facility] Comment on above: Performed By: #### C BCA, CMP, 04204-1, 7-1, 3084-1, 2731-8, 80848-0 #### [facility] ([id number]) [address] [place] [address] Erythrocyte distribution width (RBC) [Ratio] 13.3 % Normal 11.5-15.0 [facility] Comment on above: Performed By: #### C BCA, CMP, 17184-1, 7-1, 3084-1, 2731-8, 01835-3 #### [facility] ([id number]) [address] [place] [address] Hematocrit (Bld) [Volume fraction] 44.1 % Normal 35-47 [facility] Comment on above: Performed By: #### C BCA, CMP, 63606-9, 7-1, 3084-1, 2731-8, 40150-2 #### [facility] ([id number]) [address] [place] [address] Hemoglobin (Bld) [Mass/Vol] 15.6 g/dL High 11.7-15.5 [facility] Comment on above: Performed By: #### C BCA, CMP, 57942-0, 7-1, 3084-1, 2731-8, 53873-3 #### [facility] ([id number]) [address] [place] [address] Lymphocytes (Bld) [#/Vol] 2.3 10*3/uL Normal 1.0-3.5 [facility] Comment on above: Performed By: #### C BCA, CMP, 50829-7, 7-, 3084-1, 2731-8, 63600-9 #### [facility] ([id number]) [address] [place] [address] Lymphocytes/100 WBC (Bld) 26.5 % Normal [facility] Comment on above: Performed By: #### C BCA, CMP, 98544-9, 7-1, 3084-1, 2731-8, 59061-4 #### [facility] ([id number]) [address] [place] [address] MCH (RBC) [Entitic mass] 34.9 pg High 27-34 [facility] Comment on above: Performed By: #### C BCA, CMP, 97643-0, 2777-1, 3084-1, 2731-8, 05476-0 #### [facility] ([id number]) [address] [place] [address] MCHC (RBC) [Mass/Vol] 35.3 g/dL Normal 32-36 [facility] Comment on above: Performed By: #### C BCA, CMP, 58906-5, 2777-1, 3084-1, 2731-8, 39291-5 #### [facility] ([id number]) [address] [place] [address] MCV (RBC) [Entitic vol] 99 fL Normal 80-100 [facility] Comment on above: Performed By: #### C BCA, CMP, 16507-6, 2777-1, 3084-1, 2731-8, 90168-0 #### [facility] ([id number]) [address] [place] [address] Monocytes (Bld) [#/Vol] 0.6 10*3/uL Normal 0-0.9 [facility] Comment on above: Performed By: #### C BCA, CMP, 02707-0, 7-1, 3084-1, 2731-8, 24283-7 #### [facility] ([id number]) [address] [place] [address] Monocytes/100 WBC (Bld) 6.7 % Normal [facility] Comment on above: Performed By: #### C BCA, CMP, 50754-4, 7-1, 3084-1, 2731-8, 30709-0 #### [facility] ([id number]) [address] [place] [address] Neutrophils/100 WBC (Bld) 64.9 % Normal [facility] Comment on above: Performed By: #### C BCA, CMP, 20858-1, 2777-1, 3084-1, 2731-8, 88693-8 #### [facility] ([id number]) [address] [place] [address] Platelet mean volume (Bld) [Entitic vol] 8.7 fL Normal 7-12 [facility] Comment on above: Performed By: #### C BCA, CMP, 67009-4, 2777-1, 3084-1, 2731-8, 18292-7 #### [facility] ([id number]) [address] [place] [address] Platelets (Bld) [#/Vol] 323 10*3/uL Normal 150-450 [facility] Comment on above: Performed By: #### C BCA, CMP, 93354-7, 2777-1, 3084-1, 2731-8, 76162-1 #### [facility] ([id number]) [address] [place] [address] RBC COUNT 4.47 X10E12/L Normal 3.80-5.20 [facility] Comment on above: Performed By: #### C BCA, CMP, 72239-9, 2777-1, 3084-1, 2731-8, 36015-6 #### [facility] ([id number]) [address] [place] [address] WBC (Bld) [#/Vol] 8.5 10*3/uL Normal 4.0-11.0 [facility] Comment on above: Performed By: #### C BCA, CMP, 18541-4, 2777-1, 3084-1, 2731-8, 93261-2 #### [facility] ([id number]) [address] [place] [address] COMPREHENSIVE METABOLIC PANE Conor 06-12-2024 Albumin [Mass/Vol] 4.8 g/dL Normal 3.2-5.3 [facility] Comment on above: Performed By: #### C BCA, CMP, 59937-4, 2777-1, 3084-1, 2731-8, 36303-0 #### [facility] ([id number]) [address] [place] [address] ALP [Catalytic activity/Vol] 73 U/L Normal 39-130 [facility] Comment on above: Performed By: #### C BCA, CMP, 14357-0, 2777-1, 3084-1, 2731-8, 18367-0 #### [facility] ([id number]) [address] [place] [address] ALT [Catalytic activity/Vol] 18 U/L Normal 0-31 [facility] Comment on above: Performed By: #### C BCA, CMP, 35886-6, 2777-1, 3084-1, 2731-8, 28960-5 #### [facility] ([id number]) [address] [place] [address] Anion gap [Moles/Vol] 8 mmol/L Normal 5-15 [facility] Comment on above: Performed By: #### C BCA, CMP, 17312-3, 2777-1, 3084-1, 2731-8, 91114-3 #### [facility] ([id number]) [address] [place] [address] AST [Catalytic activity/Vol] 20 U/L Normal 0-41 [facility] Comment on above: Performed By: #### C BCA, CMP, 64139-9, 2777-1, 3084-1, 2731-8, 67220-2 #### [facility] ([id number]) [address] [place] [address] Bilirubin [Mass/Vol] 0.4 mg/dL Normal 0.3-1.2 [facility] Comment on above: Performed By: #### C BCA, CMP, 70806-9, 2777-1, 3084-1, 2731-8, 36936-0 #### [facility] ([id number]) [address] [place] [address] Calcium [Mass/Vol] 9.8 mg/dL Normal 8.5-10.5 [facility] Comment on above: Performed By: #### C BCA, CMP, 59446-9, 2777-1, 3084-1, 2731-8, 28938-7 #### [facility] ([id number]) [address] [place] [address] Chloride [Moles/Vol] 97 mmol/L Low 98-109 [facility] Comment on above: Performed By: #### C BCA, CMP, 11532-9, 7-1, 3084-1, 2731-8, 18279-8 #### [facility] ([id number]) [address] [place] [address] CO2 [Moles/Vol] 29 mmol/L Normal 22-32 [facility] Comment on above: Performed By: #### C BCA, CMP, 82425-2, 7-, 3084-1, 2731-8, 68999-0 #### [facility] ([id number]) [address] [place] [address] Creatinine [Mass/Vol] 0.82 mg/dL Normal 0.40-1.00 [facility] Comment on above: Result Comment: METH OD TRACEABLE TO IDMS STANDARD Performed By: #### C BCA, CMP, 18737-2, 2776-, 3084-1, 2731-8, 34999-3 #### [facility] ([id number]) [address] [place] [address] GFR/1.73 sq M.predicted among non-blacks MDRD (S/P/Bld) [Vol rate/Area] 85 mL/min/{1.73_m2} Normal >59 [facility] Comment on above: Result Comment: Reported eGFR is based on the CKD-EPI 2020 equation that does not use a race coefficient. Performed By: #### C BCA, CMP, 05915-8, 7-1, 3084-1, 2731-8, 71551-9 #### [facility] ([id number]) [address] [place] [address] Glucose [Mass/Vol] 97 mg/dL Normal 65-99 [facility] Comment on above: Performed By: #### C BCA, CMP, 16017-2, 2777-1, 3084-1, 2731-8, 98082-2 #### [facility] ([id number]) [address] [place] [address] Potassium [Moles/Vol] 4.0 mmol/L Normal 3.5-5.0 [facility] Comment on above: Performed By: #### C BCA, CMP, 50948-1, 2777-1, 3084-1, 2731-8, 50890-5 #### [facility] ([id number]) [address] [place] [address] Protein [Mass/Vol] 7.4 g/dL Normal 6.0-8.0 [facility] Comment on above: Performed By: #### C BCA, CMP, 48843-8, 2777-1, 3084-1, 2731-8, 38517-2 #### [facility] ([id number]) [address] [place] [address] Sodium [Moles/Vol] 134 mmol/L Normal 134-146 [facility] Comment on above: Performed By: #### C BCA, CMP, 17944-6, 7-1, 3084-1, 2731-8, 88399-9 #### [facility] ([id number]) [address] [place] [address] Urea nitrogen [Mass/Vol] 12 mg/dL Normal 5-23 [facility] Comment on above: Performed By: #### C BCA, CMP, 44693-1, 2777-1, 3084-1, 2731-8, 48878-1 #### [facility] ([id number]) [address], [address] [place] [address] MAGNESIUMon 06-12-2024 Magnesium [Mass/Vol] 2.0 mg/dL Normal 1.8-2.6 [facility] Comment on above: Performed By: #### C BCA, CMP, 01494-3, 2776-1, 3084-1, 2731-8, 40750-0 #### [facility] ([id number]) [address], [address] [place] [address] PHOSPHORUSon 06-12-2024 Phosphate [Mass/Vol] 4.1 mg/dL Normal 2.4-4.9 [facility] Comment on above: Performed By: #### C BCA, CMP, 68986-1, 2776-, 308-1, 273-8, 33154-4 #### [facility] ([id number]) [address], [address] [place] [address] PROTEIN CREAT RATIOon 2023 RANDOM URINE PROTEIN <40 Normal <120 [facility] Comment on above: Performed By: #### U PCR #### [facility] ([id number]) [address], [address] [place] [address] U/PRO/PLATING EQUIPMENT TENDER RATIO CALC NOT CALCULATED Normal <0.2 [facility] Comment on above: Result Comment: Result for Protein/Creatinine Ratio cannot be reliably calculated because urine total protein and or urine creatinine is below the detection limit of the assay. Performed By: #### U PCR #### [facility] ([id number]) [address], [address] [place] [address] URINE CREATININE,RDM 12.25 mg/dL Normal [facility] Comment on above: Performed By: #### U PCR #### [facility] ([id number]) [address] [place] [address] Parathyrin.intact [Mass/Vol] on 06-12-2024 PTH INTACT 25 pg/mL Normal 12-88 [facility] Comment on above: Performed By: #### C BCA, CMP, 82265-8, 2777-1, 3084-1, 2731-8, 33277-8 #### [facility] ([id number]) [address], [address] [place] [address] URIC ACIDon 06-12-2024 Urate [Mass/Vol] 3.8 mg/dL Normal 2.6-7.[address] [facility] Comment on above: Performed By: #### C BCA, CMP, 69791-7, 2777-1, 3084-1, 2731-8, 30196-4 #### [facility] ([id number]) [address], [address] [place] [address] URINALYSISon 06-12-2024 Bilirubin Ql (U) Negative Normal NEG [facility] Comment on above: Performed By: #### U A #### [facility] ([id number]) [address], [address] [place] [address] BLOOD/HGB Negative Normal NEG [facility] Comment on above: Performed By: #### U A #### [facility] ([id number]) [address], [address] [place] [address] Color (U) YELLOW Normal YELLOW [facility] Comment on above: Performed By: #### U A #### [facility] ([id number]) [address] [place] [address] Glucose Ql (U) Negative Normal NEG [facility] Comment on above: Performed By: #### U A #### [facility] ([id number]) [address], [address] [place] [address] Ketones Ql (U) Negative Normal NEG [facility] Comment on above: Performed By: #### U A #### [facility] ([id number]) [address], [address] [place] [address] Leukocyte esterase Test strip Ql (U) Negative Normal NEG [facility] Comment on above: Performed By: #### U A #### [facility] ([id number]) [address], [address] [place] [address] Nitrite Ql (U) Negative Normal NEG [facility] Comment on above: Performed By: #### U A #### [facility] ([id number]) [address] [facility] [facility] [place] [address] pH (U) 6.5 [pH] Normal 5.0-8.5 [facility] Comment on above: Performed By: #### U A #### [facility] ([id number]) [address] [place] [address] [address] [place] [address] Protein Ql (U) Negative Normal NEG [facility] Comment on above: Performed By: #### U A #### [facility] ([id number]) [address] [place] [address], [address] [place] [address] Specific gravity (U) [Rel density] 1.004 Normal 1.003-1.035 [facility] Comment on above: Performed By: #### U A #### [facility] ([id number]) [address] [facility] [facility] [place] [address] TURBIDITY CLEAR Normal CLEAR [facility] Comment on above: Performed By: #### U A #### [facility] ([id number]) [address] [facility] [facility] [place] [address] Urobilinogen (U) [Mass/Vol] mg/dL Normal <1.1 [facility] Comment on above: Performed By: #### U A #### [facility] ([id number]) [facility] [address] [place] [address] Vitamin D+Metabolites [Mass/ Vol]on 06-12-2024 VITAMIN D 25 HYD TOT 46.5 ng/mL Normal 30-100 [facility] Comment on above: Result Comment: Vitamin D status 25 [place] Vitamin D Deficiency <20 ng/mL Insufficiency 20-29 ng/mL Sufficiency 30-100 ng/mL Toxicity >100 ng/mL NOTE: A pediatric reference range has not been established by the central service tech of this kit. The [place] [employer] recommends a Vitamin D level of = or >20ng/mL in infants and children. Performed By: #### C BCA, CMP, 36810-3, 2777-1, 3084-1, 2731-8, 96973-5 #### [facility] ([id number]) [address] [place] [address], [address] [place] [address] AMYLASEon 06-09-2017 Amylase 86 U/L Normal 31-[address] [facility] Comment on above: Performed By: #### C BC ####[facility] [address] [place], [place] [address]Gerken Megan CBC AUTO DIFFon 06-09-2017 Basophils Auto #/vol (Bld) 0.0 103/ul Normal 0.0-0.[address] [facility] Comment on above: Performed By: #### C BC ####[facility] [address] [place], [place] [address]Gerken Megan Basophils/100 WBC Auto (Bld) 0.2 % Normal 0.2-2.[address] [facility] Comment on above: Performed By: #### C BC ####[facility] [address] [place], [place] [address]Gerken Megan Eosinophils 0.0 103/ul Normal 0.0-0.[address] [facility] Comment on above: Performed By: #### C BC ####[facility] [address] [place] [address] Megan Eosinophils/100 leukocytes 0.0 % Critically low 0.9-7.[address] [facility] Comment on above: Performed By: #### C BC ####[facility] Nkvibjv[address] [place], [place] [address]Germartha Guzman Erythrocyte distribution width Auto Ratio (RBC) 13.1 % Normal 11.0-15.0 [facility] Comment on above: Performed By: #### C BC ####[facility] [address] [place] [address]Meir Guzman Erythrocytes (RBC) 5.13 106/ul Normal 4.20-5.40 [facility] Comment on above: Performed By: #### C BC ####[facility] [address] [place] [address]Gerken Megan Hematocrit (HCT) 48.5 % Critically high 36.0-48.0 [facility] Comment on above: Performed By: #### C BC ####[facility] [address]wq[address] [place], [place] [address]Gerken Megan Hemoglobin mass conc (Bld) 17.4 g/dL Critically high 12.0-16.0 [facility] Comment on above: Performed By: #### C BC ####[facility] [address] [place] [address] Megan IG # 0.07 10e3/ul Critically high 0.00-0.03 [facility] Comment on above: Performed By: #### C BC ####[facility] [address] [place] [address] Megan IG % 0.5 % Normal 0.0-0.5 [facility] Comment on above: Performed By: #### C BC ####[facility] Aszh[address] [place] [address] Megan Lymphocytes 1.9 103/ul Normal 1.2-3.8 [facility] Comment on above: Performed By: #### C BC ####[facility] Dtybm[address] [place], [place] [address]martha Guzman Lymphocytes/100 leukocytes 14.0 % Critically low 20.5-60.0 [facility] Comment on above: Performed By: #### C BC ####[facility] Zepdmanbgz5970 [address] Megan MANUAL DIFF REQ NO Normal [facility] Comment on above: Performed By: #### C BC ####[facility] Iibvixaurt4423 [place], [place] [address]Veovnd Megan MCH 33.9 pg Normal 26.7-34.[address] [facility] Comment on above: Performed By: #### C BC ####[facility] Igfuiuhylk7288 [place], [place] [address]Rsnobf Karen MCHC mass conc (RBC) 35.9 g/dL Critically high 29.9-35.[address] [facility] Comment on above: Performed By: #### C BC ####[facility] Wfyjffbgqu4409 [place], [place] [address]Ifajbt Megan MCV 94.5 fL Normal 81.0-99.[address] [facility] Comment on above: Performed By: #### C BC ####[facility] Alkjzgpvnh2508 [place], [place] [address]Lwfyma Megan Monocytes 1.2 103/ul Critically high 0.3-0.8 [facility] Comment on above: Performed By: #### C BC ####[facility] [address] [place] [address]Myebwd Megan Monocytes/100 leukocytes 8.7 % Normal 1.7-12.[address] [facility] Comment on above: Performed By: #### C BC ####[facility] [address] [place] [address]Zzwfgd Megan Neutrophils 10.5 103/ul Critically high 1.4-6.5 [facility] Comment on above: Performed By: #### C BC ####[facility] Gyhtekxjsx9830 [place], [place] [address]Tjskjj Megan Neutrophils/100 WBC Auto (Bld) 76.6 % Critically high 43.0-75.[address] [facility] Comment on above: Performed By: #### C BC ####[facility] Womzyrrrsf[address] [place] [address]Ejyxoo Megan Platelet mean volume (PMV) 10.7 fL Normal 9.5-13.[address] [facility] Comment on above: Performed By: #### C BC ####[facility] Ewlzlmlulc49[address] Megan Platelets 302 103/ul Normal 150-[address] [facility] Comment on above: Performed By: #### C BC ####[facility] [address] [place] [phone] Megan WBC (Leukocytes) 13.7 103/ul Critically high 4.0-11.[address] [facility] Comment on above: Performed By: #### C BC ####[facility] [address]azcgh7304 [place] [phone] Megan CULTURE URINEon 06-09-2017 CULTURE URINE Culture Observations : FINAL, SCANNED RESULTS TO FOLLOW IN HPF Normal [facility] Comment on above: Performed By: #### C BC ####[facility] [address]ugvxzi[address] [place], [place] [address]Gerken Megan ER URINE PROFILEon 7 Bilirubin (total) MODERATE Normal NEGATIVE [facility] Comment on above: Performed By: #### C BC ####[facility] Hg[address] [place] [address] Megan BLOOD MODERATE Normal NEGATIVE [facility] Comment on above: Performed By: #### C BC ####[facility] Vziogelfap[address] [place] [address] Megan ERUAHD A micrscopic examination will be performed if indicated. Normal [facility] Comment on above: Performed By: #### C BC ####[facility] [address] [place] [address] Megan Glucose mass conc Negative Normal NEGATIVE [facility] Comment on above: Performed By: #### C BC ####[facility] H[address]uewqkuo8861 [place] [phone] Megan pH of blood 5.5 [pH] Normal 5-[address] [facility] Comment on above: Performed By: #### C BC ####[facility] Eplajxdofj8465 [address] Megan Protein 30 mg/dl Normal [facility] Comment on above: Performed By: #### C BC ####[facility] Mfaiubgijd2384 [address] Megan SPEC GRAVITY 1.025 Normal 1.005-<=1.[address] [facility] Comment on above: Performed By: #### C BC ####[facility] Papdzwadsd7276 [address] Megan UR MICRO IND INDICATED Normal [facility] Comment on above: Performed By: #### C BC ####[facility] Lorbwkilzi4772 [address] Megan Urine, clarity CLEAR Normal [facility] [place] Comment on above: Performed By: #### C BC ####[facility] Ymiednutzp2258 [address] Megan Urine, color BROWN Normal YELLOW [facility] Comment on above: Performed By: #### C BC ####[facility] [address]zd[address] [place] [address] Megan Urine, ketones presence 40 mg/dl Normal NEGATIVE [facility] Comment on above: Performed By: #### C BC ####[facility] Ctrkwsmoxi3573 [address] Megan Urine, nitrite presence Negative Normal NEGATIVE [facility] Comment on above: Performed By: #### C BC ####[facility] [address]ruxqfa[address] [place] [address] Megan Urine, urobilinogen 0.2 {Fredy'U}/dL Normal [facility] Comment on above: Performed By: #### C BC ####[facility] Lmqvqqdgef3537 [address] Megan WBC (Leukocytes) Negative Normal NEGATIVE [facility] Comment on above: Performed By: #### C BC ####[facility] Vsvuduhcyc[address] [place] [address] Megan LIPASEon 06-09-2017 Lipase 152.0 U/L Normal 23.0-300.[address] [facility] Comment on above: Performed By: #### C BC ####[facility] [address] [place] [address] Megan PROF 14(COMP METB)on 017 Alanine aminotransferase (ALT) 36 U/L Normal 9-[address] [facility] Comment on above: Performed By: #### C BC ####[facility] Zeqcxqgkoc3332 [place] [phone] Megan Albumin 5.1 g/dL Critically high 3.5-5.0 [facility] Comment on above: Performed By: #### C BC ####[facility] Rjoftbcukg2689 [address] Megan Albumin/Globulin Ratio 1.6 {ratio} Normal [facility] Comment on above: Performed By: #### C BC ####[facility] Hnnkokmhws0705 [address] Megan Alkaline phosphatase (ALP) 98 U/L Normal 38-[address] [facility] Comment on above: Performed By: #### C BC ####[facility] Eymkmrwvnc0076 [address] Megan Anion gap 22.7 mmol/L Normal [facility] Comment on above: Performed By: #### C BC ####[facility] Rxvcnafgif0157 [address] Megan Aspartate aminotransferase (AST) 37 U/L Critically high 14-[address] [facility] Comment on above: Performed By: #### C BC ####[facility] Ckrfw[address]cd[address] [place] [address] Megan Bilirubin Ql (U) 1.0 mg/dL Normal 0.2-1.3 [facility] Comment on above: Performed By: #### C BC ####[facility] Glgluewxfo9807 [address] Megan BUN/Creatinine Ratio 19.5 mg/mg Normal [facility] Comment on above: Performed By: #### C BC ####[facility] Jlhpamkdsl5275 [address] Megan Calcium 10.4 mg/dL Critically high 8.4-10.2 [facility] Comment on above: Performed By: #### C BC ####[facility] Jrkcfvkmrg9854 [place], [place] [address]Fnxvuz Megan Chloride 87 mmol/L Critically low 98-107 [facility] Comment on above: Performed By: #### C BC ####[facility] Imtnrkjwxx7064 [place], [place] [address]Gvkrmf Megan CO2 24.0 mmol/L Normal 22.0-30.0 [facility] Comment on above: Performed By: #### C BC ####[facility] Evirmyvtzd6926 [place] [phone] Megan Creatinine 0.91 mg/dL Normal 0.52-1.04 [facility] Comment on above: Performed By: #### C BC ####[facility] Owdoisawzd5878 [place], [place] [address]Zhoucf Megan eGFR (non-black) mL/min/{1.73_m2} Normal >=[address] [facility] Comment on above: Performed By: #### C BC ####[facility] Gkszuakmwg1222 [place] [address] Megan Globulin 3.2 g/dL Normal [facility] Comment on above: Performed By: #### C BC ####[facility] Qssdnlppye9694 [place] [address]ken Megan Glucose mass conc 120 mg/dL Critically high 74-[address] [facility] Comment on above: Performed By: #### C BC ####[facility] Dmbcdciiru9712 [place] [address] Megan Potassium molar conc 3.6 mmol/L Normal 3.4-5.0 [facility] Comment on above: Performed By: #### C BC ####[facility] Ottsahltax5792 [place] [address] Megan Protein 8.3 g/dL Critically high 6.1-8.2 [facility] Comment on above: Performed By: #### C BC ####[facility] Qhdgyctwby4275 [place] [address] Megan Sodium 129 mmol/L Critically low 137-145 [facility] [place] Comment on above: Performed By: #### C BC ####[facility] Mhkdgrxhtl2838 [place], [place] [address]Fldrtu Megan Urea nitrogen 18.0 mg/dL Critically high 7.0-17.0 [facility] Comment on above: Performed By: #### C BC ####[facility] Ofifhurqgo8481 [place], [place] [address]Yuxmfr Megan URINE MICROSCOPIC ONLYon CAST NONE SEEN Normal NONE SEEN [facility] Comment on above: Performed By: #### C BC ####[facility] Hgktizpnbr6474 [place] [address] Megan CULTURE INDICATED Normal [facility] Comment on above: Performed By: #### C BC ####[facility] Hoizzpdcol1159 [place] [address] Megan Erythrocytes (RBC) NONE SEEN Normal 0-2 [facility] Comment on above: Performed By: #### C BC ####[facility] Hktbletcxd9208 [place], [place] [address]Onuhet Megan MUCOUS NONE SEEN Normal NONE SEEN [facility] Comment on above: Performed By: #### C BC ####[facility] Tgesbxvbca9455 [place], [place] [address]Lgzfds Megan Urine, bacteria in sediment SMALL Normal NONE SEEN [facility] Comment on above: Performed By: #### C BC ####[facility] Apehwrxbqt8309 [place] [phone] Megan Urine, crystals in sediment NONE SEEN Normal NONE SEEN [facility] Comment on above: Performed By: #### C BC ####[facility] Revliyxzoq7068 [place], [place] [address]Pjwxqi Megan Urine, epithelial cells in sediment FEW Normal [facility] Comment on above: Performed By: #### C BC ####[facility] Ygbanxckdh0720 [place], [place] [address]Gtpmxm Megan WBC (Leukocytes) NONE SEEN Normal NONE SEEN [facility] Comment on above: Performed By: #### C BC ####[facility] Hwdyhkzfso2268 [place], [place] [address]Rlmdmj Megan XR ABD FLAT UP/PA Vianney 06-09 XR ABD FLAT UP/PA [address] [place] [address] Patient: SEAN MALDONADO Exam Date: 06/09/2017DOB: 1970 Gender:F : DR LISBET SALCEDO D.O. Admission #: [id number] : Order #: [id number] HERE TO VIEW EXAM RADIOLOGY REPORT PROCEDURE: [...] Thurman M.D. on 06/09/2017 at 23:26 Normal [facility] AMMONIAon 04-27-2017 Ammonia ug/dL Critically low 10-30 [facility] Comment on above: Performed By: #### A MM ####[facility] Vxoshmxlea2273 [address] Megan CARDIAC KRISTEL ADMITon 017 CKMB 1.02 ng/mL Normal <=2.37 [facility] Comment on above: Performed By: #### E TH, LIPA, LIVER, BMP, CMADM ####[facility] Xlxlilupql3125 [address] Megan Creatine kinase (CK) 72 U/L Normal 30-135 [facility] Comment on above: Performed By: #### E TH, LIPA, LIVER, BMP, CMADM ####[facility] Xndasamphx3225 [address] Megan INR Coag RelTime (Bld) SEE BELOW Normal [facility] Comment on above: Result Comment: <0.0 34 ng/ml NEGATIVE 0.034-0.119 INDETERMINATE 0.120 AMI CUT OFF Performed By: #### E TH, LIPA, LIVER, BMP, CMADM ####[facility] [address] [place] [address] Megan Result Comment: CHULA RED INR: 2.0 - 3.0 CONDITIONS NOT LISTED BELOW 2.5 - 3.5 FOR PROSTHETIC HEART VALVE REPLACEMENT 2.5 - 3.5 RECURRENT THROMBOSIS Performed By: #### P TT, PT ####[facility] [address]mqttnlcmx[address] [place] [address] Megan MARIO 21.1 ng/mL Normal <=61.[address] [facility] Comment on above: Performed By: #### E TH, LIPA, LIVER, BMP, CMADM ####[facility] Loowaqynml[address] [place] [address] Megan TROP <0.012 Normal <=0.[address] [facility] Comment on above: Performed By: #### E TH, LIPA, LIVER, BMP, CMADM ####[facility] Lbrswjafcb[address] [place] [address] Megan CBC AUTO DIFFon 04-27-2017 Basophils Auto #/vol (Bld) 0.1 103/ul Normal 0.0-0.[address] [facility] Comment on above: Performed By: #### C BC ####[facility] Rokqinxtdx[address] [place] [address] Megan Basophils/100 WBC Auto (Bld) 0.7 % Normal 0.2-2.[address] [facility] Comment on above: Performed By: #### C BC ####[facility] Qggpipiipz[address] [place] [address] Megan Eosinophils 0.0 103/ul Normal 0.0-0.[address] [facility] Comment on above: Performed By: #### C BC ####[facility] Szbihjukhj[address] [place] [address] Megan Eosinophils/100 leukocytes 0.1 % Critically low 0.9-7.0 [facility] Comment on above: Performed By: #### C BC ####[facility] Kkhdytgqrl6165 [address] Megan Erythrocyte distribution width Auto Ratio (RBC) 13.2 % Normal 11.0-15.0 [facility] Comment on above: Performed By: #### C BC ####[facility] Lugbsmzizw5359 [address] Megan Erythrocytes (RBC) 4.81 106/ul Normal 4.20-5.40 [facility] Comment on above: Performed By: #### C BC ####[facility] Hdameqgcgr3007 [address] Megan Hematocrit (HCT) 48.2 % Critically high 36.0-48.0 [facility] Comment on above: Performed By: #### C BC ####[facility] Qyfabjhmgs5234 [address] Megan Hemoglobin mass conc (Bld) 17.0 g/dL Critically high 12.0-16.[address] [facility] Comment on above: Performed By: #### C BC ####[facility] [address]fszor[address] [place] [address] Megan IG # 0.07 10e3/ul Critically high 0.00-0.03 [facility] Comment on above: Performed By: #### C BC ####[facility] Wjecwfoiex7891 [address] Megan IG % 0.6 % Critically high 0.0-0.5 [facility] Comment on above: Performed By: #### C BC ####[facility] Hpfkvfklhc5059 [address] Megan Lymphocytes 1.8 103/ul Normal 1.2-3.[address] [facility] Comment on above: Performed By: #### C BC ####[facility] Oifxtqmzxz0987 [address] Megan Lymphocytes/100 leukocytes 14.9 % Critically low 20.5-60.0 [facility] Comment on above: Performed By: #### C BC ####[facility] Rgdlzfqmdr8056 [place] [phone] Megan MANUAL DIFF REQ NO Normal [facility] Comment on above: Result Comment: NO Performed By: #### C BC ####[facility] Usulnkutre2098 [place] [address]Gerken Megan MCH 35.3 pg Critically high 26.7-34.0 [facility] Comment on above: Performed By: #### C BC ####[facility] Ihdauqyinf3322 [address] Megan MCHC mass conc (RBC) 35.3 g/dL Critically high 29.9-35.[address] [facility] Comment on above: Performed By: #### C BC ####[facility] [address]mpauctax[address] [place] [address] Megan MCV 100.2 fL Critically high 81.0-99.0 [facility] Comment on above: Performed By: #### C BC ####[facility] Uzjiexooaq1168 [address] Megan Monocytes 0.4 103/ul Normal 0.3-0.[address] [facility] Comment on above: Performed By: #### C BC ####[facility] [address]flrkrbs[address] [place] [address] Megan Monocytes/100 leukocytes 2.9 % Normal 1.7-12.[address] [facility] Comment on above: Performed By: #### C BC ####[facility] [address]ucmafekh[address] [place], [place] [address]Gerken Megan Neutrophils 9.9 103/ul Critically high 1.4-6.5 [facility] Comment on above: Performed By: #### C BC ####[facility] Sx[address]hxwtuy[address] [place], [place] [address]Gerken Megan Neutrophils/100 WBC Auto (Bld) 80.8 % Critically high 43.0-75.[address] [facility] Comment on above: Performed By: #### C BC ####[facility] Bxlrwsvvkt1530 [address] Megan Platelet mean volume (PMV) 10.3 fL Normal 9.5-13.[address] [facility] Comment on above: Performed By: #### C BC ####[facility] Vockryjaig3235 [address] Megan Platelets 357 103/ul Normal 150-[address] [facility] Comment on above: Performed By: #### C BC ####[facility] Rjbmhabhgw9413 [address] Megan WBC (Leukocytes) 12.3 103/ul Critically high 4.0-11.[address] [facility] Comment on above: Performed By: #### C BC ####[facility] Quraouylxt[address] [place] [address] Megan ETHANOL (BLD ALC)on 04-27-20 17 ALC NOTE NOTE: 80 mg/dl is th e legal limit for a blood alcohol level Normal [facility] Comment on above: Result Comment: NOTE : 80 mg/dl is the legal limit for a blood alcohol level Performed By: #### E TH, LIPA, LIVER, BMP, CMADM ####[facility] [address]lgdtmvli[address] [place] [address] Megan Ethanol mg/dL Normal [facility] Comment on above: Performed By: #### E TH, LIPA, LIVER, BMP, CMADM ####[facility] [address]zntaucvgk[address] [place] [address] Megan LIPASEon 04-27-2017 Lipase 133.0 U/L Normal 23.0-300.[address] [facility] Comment on above: Performed By: #### E TH, LIPA, LIVER, BMP, CMADM ####[facility] Coyhmcrguy8205 [address] Megan LIVER PROFILEon 04-27-2017 Alanine aminotransferase (ALT) 28 U/L Normal 9-[address] [facility] Comment on above: Performed By: #### E TH, LIPA, LIVER, BMP, CMADM ####[facility] [address]maqljmg[address] [place], [place] [address] Megan Albumin 5.2 g/dL Critically high 3.5-5.0 [facility] Comment on above: Performed By: #### E TH, LIPA, LIVER, BMP, CMADM ####[facility] Qgspiluaco0783 [address] Megan Albumin/Globulin Ratio 1.6 {ratio} Normal [facility] Comment on above: Performed By: #### E , LIPA, LIVER, BMP, CMADM ####[facility] Zbzcvmmkag4246 [address] [place] Alkaline phosphatase (ALP) 107 U/L Normal 38-[address] [facility] Comment on above: Performed By: #### E , LIPA, LIVER, BMP, CMADM ####[facility] Pbrlgzybxy8688 [address] [place] Aspartate aminotransferase (AST) 28 U/L Normal 14-[address] [facility] Comment on above: Performed By: #### E , LIPA, LIVER, BMP, CMADM ####[facility] Xnhajcndht3166 [address] [place] BILI, CONJUGATED 0.0 mg/dL Normal 0.0-0.3 The [facility] Comment on above: Performed By: #### E , LIPA, LIVER, BMP, CMADM ####[facility] Rhipqnictm4186 [address] [place] Bilirubin Ql (U) 0.5 mg/dL Normal 0.2-1.3 [facility] Comment on above: Performed By: #### E , LIPA, LIVER, BMP, CMADM ####[facility] Qrrifyhnfw6[address] [place] [id number] Globulin 3.2 g/dL Normal [facility] Comment on above: Performed By: #### E , LIPA, LIVER, BMP, CMADM ####[facility] Uaudwwqmkk1358 [place] [phone] Protein 8.4 g/dL Critically high 6.1-8.2 The [facility] Comment on above: Performed By: #### E TH, LIPA, LIVER, BMP, CMADM ####[facility] Xmjydecdhs6999 [address] [place] PH VENOUS WITH COon 04-27-20 17 CARBOXY RANGE NORMAL CONCENTRATION : NON-SMOKERS: 0 - 2% SMOKERS: < OR = 9% Normal [facility] Comment on above: Result Comment: NORM AL CONCENTRATION: NON-SMOKERS: 0 - 2% SMOKERS: < OR = 9% Performed By: #### P HVENCO ####[facility] Wthditobjg2834 [address] [place] CO2 32.8 mmHg Critically low 40.0-52.0 The [facility] [place] Comment on above: Performed By: #### P HVENCO ####[facility] [address] [place] [address] [place] Hemoglobin mass conc (Bld) 7.0 % Normal [facility] Comment on above: Performed By: #### P HVENCO ####[facility] [address] [place] [address] [place] Hemoglobin mass conc (Bld) 0.0 % Critically low 0.4-1.[address] [facility] Comment on above: Performed By: #### P HVENCO ####[facility] [address] [place] [address] [place] Hemoglobin mass conc (Bld) 46.7 % Critically low 94.0-100.[address] [facility] Comment on above: Performed By: #### P HVENCO ####[facility] [address] [place] [address] Megan pH VENOUS 7.50 Critically high 7.33-7.43 [facility] Comment on above: Performed By: #### P HVENCO ####[facility] [address] [place] [address] Megan PROF CHEM 8 (BAS METB)on Anion gap 17.6 mmol/L Normal [facility] Comment on above: Performed By: #### E TH, LIPA, LIVER, BMP, CMADM ####[facility] Momnymovdf2848 [address] [place] BUN/Creatinine Ratio 12.2 mg/mg Normal [facility] Comment on above: Performed By: #### E , LIPA, LIVER, BMP, CMADM ####[facility] Cgxnqqcfan2275 [address] [place] Calcium 10.0 mg/dL Normal 8.4-10.[address] [facility] Comment on above: Performed By: #### E , LIPA, LIVER, BMP, CMADM ####[facility] [address] [place] [address] [place] Chloride 100 mmol/L Normal 98-107 [facility] Comment on above: Performed By: #### E , LIPA, LIVER, BMP, CMADM ####[facility] [address] [place] [address] Megan CO2 28.0 mmol/L Normal 22.0-30.0 [facility] Comment on above: Performed By: #### E , LIPA, LIVER, BMP, CMADM ####[facility] [address] [place] [address] [place] Creatinine 0.99 mg/dL Normal 0.52-1.04 [facility] Comment on above: Performed By: #### E , LIPA, LIVER, BMP, CMADM ####[facility] Vsvdyytnpx27[address] [place] eGFR (non-black) mL/min/{1.73_m2} Normal >=[address] [facility] Comment on above: Performed By: #### E , LIPA, LIVER, BMP, CMADM ####[facility] [address] [place] [address] Megan eGFR (non-black) 60 mL/min/{1.73_m2} Normal >=60 [facility] Comment on above: Performed By: #### E , LIPA, LIVER, BMP, CMADM ####[facility] [address] [place], [place] [address] [place] Glucose mass conc 176 mg/dL Critically high 74-[address] [facility] Comment on above: Performed By: #### E , LIPA, LIVER, BMP, CMADM ####[facility] [address]brxsd30[address] [place] [phone] Potassium molar conc 4.1 mmol/L Normal 3.4-5.[address] [facility] Comment on above: Performed By: #### E , LIPA, LIVER, BMP, CMADM ####[facility] [address]qwyp60[address] [place] [phone] Sodium 141 mmol/L Normal 137-[address] [facility] Comment on above: Performed By: #### E , LIPA, LIVER, BMP, CMADM ####[facility] Oxbionobwj0795 [place] [phone] Urea nitrogen 12.0 mg/dL Normal 7.0-17.0 The [facility] Comment on above: Performed By: #### E , LIPA, LIVER, BMP, CMADM ####[facility] Myidbxetde8538 [place] [id number] Guzman PROTIMEon 04-27-2017 INR Coag RelTime (PPP) 1.08 {INR} Normal [facility] Comment on above: Performed By: #### P TT, PT ####[facility] [address] [place] [phone] Prothrombin time (PT) Coag time (PPP) 11.2 s Normal 9.7-11.[address] [facility] Comment on above: Performed By: #### P TT, PT ####[facility] Eftigrguus0532 [place] [phone] PT NORMAL PLEASE NOTE: NORMAL RANGE CHANGE 04-24-2014 DUE TO REAGENT LOT CHANGE Normal [facility] Comment on above: Result Comment: PLEA SE NOTE: NORMAL RANGE CHANGE 04-24-2014 DUE TO REAGENT LOT CHANGE Performed By: #### P TT, PT ####[facility] Mevgnaglpf[address] [place] [phone] Guzman PTTon 04-27-2017 aPTT PLEASE NOTE: NORMAL RANGE CHANGE 07-01-2015 DUE TO REAGENT LOT CHANGE Normal [facility] Comment on above: Result Comment: ISHMAEL NOTE: NORMAL RANGE CHANGE 07-01-2015 DUE TO REAGENT LOT CHANGE Performed By: #### P TT, PT ####[facility] Abkkhkozpd4091 [place], [place] [address]TwlenwMeir Guzman aPTT 21.0 s Critically low 22.1-30.2 The [facility] [place] Comment on above: Performed By: #### P TT, PT ####[facility] [address]udjkdfhzp6620 [place], [place] [address]OtoyrtMeir Guzman Vital Signs Date Time Vital Sign Value Performing Clinician Facility 05-20-2025 11:33-0400 Body height 170.2 cm [facility] 05-20-2025 11:33-0400 Body mass index (BMI) [Ratio] 20.04 kg/m2 [facility] 05-20-2025 11:33-0400 Body weight 58.06 kg [facility] 05-20-2025 11:33-0400 Diastolic blood pressure 90 mm[Hg] [facility] 05-20-2025 11:33-0400 Systolic blood pressure 160 mm[Hg] [facility] 04-18-2025 11:45-0400 Body mass index (BMI) [Ratio] 20.11 kg/m2 Angeles Perales MD Work Phone: [facility] 04-18-2025 11:45-0400 Body weight 58.24 kg Angeles Perales MD Work Phone: [facility] 04-18-2025 11:45-0400 Diastolic blood pressure 87 mm[Hg] Angeles Perales MD Work Phone: [facility] 04-18-2025 11:45-0400 Heart rate 102 /min Angeles Perales MD Work Phone: [facility] 04-18-2025 11:45-0400 Respiratory rate 20 /min Angeles Perales MD Work Phone: [facility] 04-18-2025 11:45-0400 SaO2% (BldA) [Mass fraction] 96 % Angeles Perales MD Work Phone: [facility] 04-18-2025 11:45-0400 Systolic blood pressure 161 mm[Hg] Angeles Perales MD Work Phone: [facility] 03-17-2025 10:59-0400 Diastolic blood pressure 93 mm[Hg] [facility] 03-17-2025 10:59-0400 Systolic blood pressure 176 mm[Hg] [facility] 03-17-2025 10:08-0400 Body height 170.2 cm o [facility] 03-17-2025 10:08-0400 Body mass index (BMI) [Ratio] 20.54 kg/m2 o [facility] 03-17-2025 10:08-0400 Body temperature 97.11 [degF] o [facility] 03-17-2025 10:08-0400 Body weight 59.51 kg [facility] 03-17-2025 10:08-0400 Heart rate 90 /min o [facility] 03-17-2025 10:08-0400 Respiratory rate 18 /min [facility] 03-17-2025 10:08-0400 SaO2% (BldA) [Mass fraction] 100 % P[facility] 03-06-2025 11:45-0400 Diastolic blood pressure 84 mm[Hg] Shahriar Rosales MD Work Phone: [facility] 03-06-2025 11:45-0400 Heart rate 95 /min Shahriar Rosales MD Work Phone: [facility] 03-06-2025 11:45-0400 SaO2% (BldA) [Mass fraction] 37 % Shahriar Rosales MD Work Phone: [facility] 07-31-2025 11:45-0400 Systolic blood pressure 153 mm[Hg] Shahriar Rosales MD Work Phone: [facility] 03-06-2025 11:25-0400 Body height 170.2 cm [facility] 3 [facility] 03-06-2025 11:25-0400 Body mass index (BMI) [Ratio] 20.55 kg/m2 [facility] 3 [facility] 03-06-2025 11:25-0400 Body weight 59.[address] 12-03-2024 14:23-0400 Body height 170.18 cm [facility] 12-03-2024 14:23-0400 Body mass index (BMI) [Ratio] 21.5 kg/m2 [facility] 12-03-2024 14:23-0400 Body temperature 98.8 [degF] [facility] 12-03-2024 14:23-0400 Body weight 62.31 kg [facility] 12-03-2024 14:23-0400 Diastolic blood pressure 88 mm[Hg] [facility] 12-03-2024 14:23-0400 Heart rate 88 /min [facility] 12-03-2024 14:23-0400 Respiratory rate 16 /min [facility] 12-03-2024 14:23-0400 SaO2% (BldA) [Mass fraction] 99 % [facility] 12-03-2024 14:23-0400 Systolic blood pressure 139 mm[Hg] [facility] 08-05-2024 14:09-0500 Body height 170.2 cm Silvia Hamilton APRN-GELATIN POWDER MIXER Work Phone: [facility] 08-05-2024 14:09-0500 Body mass index (BMI) [Ratio] 21.58 kg/m2 Silvia Hamilton APRN-GELATIN POWDER MIXER Work Phone: [facility] 08-05-2024 14:09-0500 Body weight 62.51 kg Silvia Hamilton APRN-GELATIN POWDER MIXER Work Phone: [facility] 08-05-2024 14:09-0500 Diastolic blood pressure 82 mm[Hg] Silvia Hamilton CYBER DEFENSE ANALYST-GELATIN POWDER MIXER Work Phone: [facility] 08-05-2024 14:09-0500 Systolic blood pressure 144 mm[Hg] Silvia Hamilton CYBER DEFENSE ANALYST-GELATIN POWDER MIXER Work Phone: [facility] 06-18-2024 14:49-0500 Body height 170.18 cm [facility] 06-18-2024 14:49-0500 Body mass index (BMI) [Ratio] 20.4 kg/m2 [facility] 06-18-2024 14:49-0500 Body weight 59.08 kg [facility] 06-18-2024 14:49-0500 Diastolic blood pressure 79 mm[Hg] [facility] 06-18-2024 14:49-0500 Heart rate 86 /min [facility] 06-18-2024 14:49-0500 SaO2% (BldA) [Mass fraction] 100 % [facility] 06-18-2024 14:49-0500 Systolic blood pressure 128 mm[Hg] [facility] 08-03-2023 13:00-0500 Body height 170.2 cm [facility] 08-03-2023 13:00-0500 Body mass index (BMI) [Ratio] 19.58 kg/m2 [facility] 08-03-2023 13:00-0500 Body weight 56.7 kg [facility] 08-03-2023 13:00-0500 Diastolic blood pressure 90 mm[Hg] [facility] 08-03-2023 13:00-0500 Systolic blood pressure 162 mm[Hg] [facility] 06-06-2023 13:40-0400 Body height 170.18 cm Marvin Erazo Other [employer] Other 06-06-2023 13:40-0400 Body mass index (BMI) [Ratio] 20.17 kg/m2 Azjennifer Erazo Other [employer] Other 06-06-2023 13:40-0400 Body temperature 96.9 [degF] Marvin Martínezs Other [employer] Other 06-06-2023 13:40-0400 Body weight 58.42 kg Marvin Martínezs Other [employer] Other 06-06-2023 13:40-0400 Diastolic blood pressure 80 mm[Hg] Marvin Martínezs Other [employer] Other 06-06-2023 13:40-0400 Respiratory rate 18 /min Marvin Martínezs Other [employer] Other 06-06-2023 13:40-0400 SaO2% (BldA) [Mass fraction] 98 % Marvin Erazo Other [employer] Other 06-06-2023 13:40-0400 Systolic blood pressure 140 mm[Hg] Marvin Martínezs Other [employer] Other Encounters Encounter Date Encounter Type Care Provider Facility Start: 05-20-2025 End: 05-20-2025 Office outpatient visit 15 minutes [facility] Ob Communication Technician [facility] Comment on above: Incontinence of urin e in female (Primary Dx); Frequency of urination; Urgency of urination Start: 05-15-2025 End: 05-15-2025 Documentation procedure Sydni mcduffie Oncology - Radiation Oncology Start: 05-09-2025 End: 05-12-2025 ambulatory JOSE MANUEL FRIDA Facility:[facility] Start: 05-08-2025 End: 05-08-2025 ambulatory LUIS VENNEPUREDDY Facility:[facility] Start: 05-02-2025 End: 05-02-2025 ambulatory SHAHRIAR [facility] Start: 04-30-2025 End: 04-30-2025 ambulatory TRESA [facility] Start: 04-28-2025 End: 04-28-2025 ambulatory LUIS BAH Facility:[facility] Start: 04-18-2025 End: 04-18-2025 Documentation [facility] Start: 04-18-2025 End: 04-18-2025 ambulatory ANGELES PERALES [facility] Start: 04-18-2025 End: 04-18-2025 Office outpatient visit 40 minutes Angeles Perales MD Work Phone: Rica Arreola [facility] Medical Oncology Comment on above: 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) Start: 03-10-2025 End: 03-10-2025 Evaluation and management of inpatient KAREN Shepard EDUARDO [facility] Start: 03-07-2025 End: 03-07-2025 Admission to [address] Pre-Admission Clinic On [facility] Start: 03-07-2025 End: 03-07-2025 Telephone encounter Quintin Barnes RN [facility] Start: 03-07-2025 End: 03-07-2025 Evaluation and management of inpatient LIGIA S EMANUEL [facility] Start: 03-06-2025 End: 03-06-2025 Office outpatient new 45 minutes Shahriar Rosales MD Work Phone: [facility] Comment on above: Abnormal CT scan, ch est (Primary Dx); Blood in sputum; Hilar adenopathy; Tobacco use disorder; COPD, mild ([facility]-HCC) Start: 03-06-2025 End: 03-06-2025 ambulatory [facility] 3 [facility] Comment on above: Chronic obstructive pulmonary disease, unspecified COPD type ([facility]-HCC) [J44.9] (Primary Dx); Abnormal CT of the chest Start: 03-05-2025 End: 03-05-2025 [facility] Start: 02-24-2025 End: 02-24-2025 ambulatory [facility] Start: 02-04-2025 End: 02-04-2025 Telephone encounter Alvina Cuellar CMA [facility] Start: 12-03-2024 End: 12-03-2024 ambulatory [facility] Work Phone: Start: 12-03-2024 End: 12-03-2024 Patient encounter procedure [facility] Nephrology Klaus Work Phone: Start: 11-06-2024 End: 11-06-2024 Telephone encounter Sobia Lujan MA [facility] Start: 08-05-2024 End: 08-05-2024 Patient encounter procedure Silvia Hamilton CYBER DEFENSE ANALYST-GELATIN POWDER MIXER Work Phone: [facility] [employer] Work Phone: Start: 08-05-2024 End: 08-05-2024 Periodic preventive med est patient 40-64yrs Silvia Hamilton APRN-GELATIN POWDER MIXER Work Phone: [facility] Comment on above: Women's annual routi ne gynecological examination (Primary Dx); Cervical smear, as part of routine gynecological examination Start: 08-05-2024 End: 08-05-2024 ambulatory [facility] Heidi [facility] Start: 08-05-2024 End: 08-05-2024 ambulatory SILVIA M [facility] Start: 08-05-2024 End: 08-05-2024 Encounter for gynecological examination (general) (routine) without abnormal findings Silvia CastanonDesebas CYBER DEFENSE ANALYST-GELATIN POWDER MIXER Work Phone: [facility] Start: 06-28-2024 End: 06-28-2024 ambulatory LOVE RITTER [facility] Start: 06-19-2024 End: 06-19-2024 ambulatory CHAPIS EDGAR [facility] Start: 06-18-2024 End: 06-18-2024 Patient encounter procedure [facility] Nephrology Klaus Work Phone: Start: 06-18-2024 End: 06-18-2024 ambulatory Love Almendarezgunjan CYBER DEFENSE ANALYST-GELATIN POWDER MIXER Work Phone: [facility] Comment on above: Screening for lung c ancer (Primary Dx); History of smoking 30 or more pack years Start: 06-12-2024 End: 06-12-2024 [facility] Start: 06-07-2024 End: 06-18-2024 Orders Only Chapis Edgar CYBER DEFENSE ANALYST-CNM Work Phone: [facility]ne[facility] Comment on above: Screening mammogram for breast cancer (Primary Dx) Start: 08-03-2023 End: 08-03-2023 Encounter for gynecological examination (general) (routine) without abnormal findings [facility] [employer] Start: 08-03-2023 End: 08-03-2023 Patient encounter procedure [facility] Ob Communication Technician [facility] [place] Comment on above: Cervical smear, as p art of routine gynecological examination (Primary Dx); Pap smear for cervical cancer screening Start: 06-06-2023 End: 06-06-2023 [facility] Other [employer] Other Start: 06-06-2023 Office outpatient ne w 30 minutes Mavrin JOY [facility] Start: 06-09-2017 End: 06-09-2017 Ambulatory LISBET SALCEDO Facility:[facility] Start: 04-27-2017 End: 04-27-2017 Ambulatory GUNNER SMALLWOOD Facility: Procedures Date Procedure Procedure Detail Performing Clinician Start: 04-18-2025 Follow-up visit Follow-up ANGELES PERALES Start: 03-06-2025 PULMONARY FUNCTION TEST Shahriar Rosales MD Work Phone: Start: 08-05-2024 Microscopic observat ion [Identifier] in Cervix by Cyto stain Sobia Lujan MA Start: 06-19-2024 Mammography [facility] Mid[facility] fe Start: 08-03-2023 Microscopic observat ion [Identifier] in Cervix by Cyto stain Chapis Edgar CYBER DEFENSE ANALYST-CNM Work Phone: Start: 05-31-2022 Microscopic observat ion [Identifier] in Cervix by Cyto stain [facility] Communication Technician Plan of Treatment Date Care Activity Detail Author Start: 08-05-2027 Screening for malign ant neoplasm of cervix Pap Smear [facility] Start: 08-03-2026 Screening for malign ant neoplasm of cervix Pap Smear [facility] Start: 05-20-2026 Adult BMI Screening Adult BMI Screen ing [facility] Start: 05-20-2026 Tobacco Screening Tobacco Screening [facility] Start: 05-02-2026 Adult BMI Screening Adult BMI Screen ing [facility] Start: 04-18-2026 Adult BMI Screening Adult BMI Screen ing [facility] Start: 04-18-2026 Tobacco Screening Tobacco Screening [facility] Start: 03-17-2026 Adult BMI Screening Adult BMI Screen ing [facility] Start: 03-17-2026 Tobacco Screening Tobacco Screening [facility] Start: 03-10-2026 Adult BMI Screening Adult BMI Screen ing [facility] Start: 03-10-2026 Tobacco Screening Tobacco Screening [facility] Start: 03-07-2026 Tobacco Screening Tobacco Screening [facility] Start: 03-06-2026 Adult BMI Screening Adult BMI Screen ing [facility] Start: 03-06-2026 Tobacco Screening Tobacco Screening [facility] Start: 02-24-2026 Tobacco Screening Tobacco Screening [facility] Start: 08-05-2025 Adult BMI Screening Adult BMI Screen ing [facility] Start: 08-05-2025 Tobacco Screening Tobacco Screening [facility] Start: 06-23-2025 End: 06-23-2025 Patient encounter procedure 06/23/2025 1:30 PM EST Appointment [facility] - Mammography/DEXA Imaging [address] [place] [id number] [facility] - Mammography/DEXA Imaging Start: 06-19-2025 Screening for malign ant neoplasm of breast Mammogram [facility] Start: 05-31-2025 Screening for malign ant neoplasm of cervix Pap Smear [facility] Start: 05-20-2025 End: 05-20-2025 Patient encounter procedure 05/20/2025 11:30 AM EDT Office Visit [facility] [place] [address] [place] [address] [facility] [place] Start: 05-16-2025 End: 05-16-2025 Patient encounter procedure 05/16/2025 11:15 AM EDT Office Visit Rica Arreola [facility] - Medical Oncology [address] [place] [phone] Angeles Perales MD [address] [place] [address] Rica Arreola [facility] - Medical Oncology Start: 05-02-2025 End: 05-02-2025 Patient encounter procedure 05/02/2025 10:30 AM EDT Appointment [facility] Rica Arreola [facility] - Pet Imaging [address] [place] [address] [facility] Rica Arreola [facility] - Pet Imaging Start: 04-18-2025 End: 04-18-2025 Patient encounter procedure 04/18/2025 11:30 AM EDT Office Visit Rica L [facility] - Medical Oncology [address] [place] [address] Angeles Perales MD [address] [place] [address] Rica Ngo Barnwell [facility] - Medical Oncology Start: 04-07-2025 Influenza vaccination Influenza Vacc ine [facility] Start: 04-03-2025 End: 04-03-2025 Patient encounter procedure 04/03/2025 12:45 PM EDT Appointment [facility] - MRI Imaging [address] [place] [phone] Shahriar Rosales MD [address] [address] [facility] - MRI Imaging Start: 03-28-2025 End: 03-28-2025 Patient encounter procedure 03/28/2025 11:00 AM EDT Appointment [facility] Rica Ngo [facility] - Pet Imaging [address] [place] [phone] [facility] Start: 03-10-2025 End: 03-10-2025 Admission to same day surgery center 03/10/2025 10:00 AM EDT - 03/10/2025 11:15 AM EDT Surgery [facility] - Endoscopy [address] [place] [phone] Karen Diamond MD [address] [address] BRONCHOSCOPY [08472 (CPT )] [facility] - Endoscopy Comment on above: BRONCHOSCOPY [68619 (CPT )] Start: 03-10-2025 End: 03-10-2025 Brnchsc incl fluor gdnce dx w/cell washg spx BRONCHOSCOPY Pulmonary nodule 03/10/2025 10:00 AM EDT [facility] Start: 03-10-2025 End: 03-10-2025 ENDOBRONCHIAL ULTRASOUND BRONCHOSCOPY ENDOBRONCHIAL ULTRASOUND BRONCHOSCOPY Pulmonary nodule 03/10/2025 10:00 AM EDT [facility] Start: 03-10-2025 Subsequent hospital visit by physician 03/10/2025 10:00 AM EDT Hospital Encounter [facility] Endoscopy [address] [place] [phone] Karen Diamond MD [address] [address] [facility] Endoscopy Start: 03-06-2025 End: 03-06-2025 ambulatory 03/06/2025 11:30 AM EDT Support Visit [facility] [address] [place] [phone] [facility] Start: 03-06-2025 End: 03-06-2025 Patient encounter procedure 03/06/2025 11:30 AM EDT Office Visit [facility] [address] [place] [phone] Shahriar Rosales MD [address] [id number] [facility] Start: 08-05-2024 End: 08-05-2025 Cytopathology procedure, preparation of smear, genital source Pap Smear Pathology and Cytology Routine Cervical smear, as part of routine gynecological examination Expected: 08/05/2024 (Approximate), Expires: 08/05/2025 [facility] Work Phone: Comment on above: Expected: 08/05/2024 (Approximate), Expires: 08/05/2025 Start: 08-05-2024 End: 08-05-2024 Patient encounter procedure 08/05/2024 2:00 PM EST Office Visit [facility]ne[facility] [address] [place] [phone] Silvia Hamilton, CYBER DEFENSE ANALYST-GELATIN POWDER MIXER [address] [place] [address] [facility] Obstetrics/Gynecolog y Start: 08-03-2024 Adult BMI Screening Adult BMI Screen ing [facility] Start: 08-03-2024 Tobacco Screening Tobacco Screening [facility] Start: 07-04-2024 Tobacco Screening Tobacco Screening [facility] Start: 06-28-2024 End: 06-28-2024 Patient encounter procedure 06/28/2024 1:30 PM EST Appointment [facility] - CT Imaging [address] [place] [phone] Love Maldonado, CYBER DEFENSE ANALYST-GELATIN POWDER MIXER [address] [place] [address] [facility] Imaging Start: 06-19-2024 End: 06-19-2024 Patient encounter procedure 06/19/2024 1:45 PM EST Appointment [facility] - Mammography/DEXA Imaging [address] [place] [phone] [facility] - Mammography/DEXA Imaging Start: 06-18-2024 End: 06-18-2025 CT Chest for screening WO contrast CT low dose lung screening (Annual) Imaging Routine Screening for lung cancer History of smoking 30 or more pack years Expected: 06/18/2024, Expires: 06/18/2025 [employer] Phone: Comment on above: Expected: 06/18/2024 , Expires: 06/18/2025 Start: 06-07-2024 End: 06-07-2025 DBT Breast - bilateral screening Mammography screening bilateral with CAD Imaging Routine Screening mammogram for breast cancer Expected: 06/07/2024, Expires: 06/07/2025 [employer] Phone: Comment on above: Expected: 06/07/2024 , Expires: 06/07/2025 Start: 04-07-2024 Influenza vaccination Influenza Vacc ine [facility] Start: 08-03-2023 End: 08-03-2024 Cytopathology procedure, preparation of smear, genital source Pap Smear Pathology and Cytology Routine Cervical smear, as part of routine gynecological examination Pap smear for cervical cancer screening Expected: 08/03/2023 (Approximate), Expires: 08/03/2024 [facility] Work Phone: Comment on above: Expected: 08/03/2023 (Approximate), Expires: 08/03/2024 Start: 04-07-2023 Influenza vaccination Influenza Vacc ine [facility] Start: 2020 Administration of varicella zoster vaccine Zoster (Shingles) Vaccine (1 of 2) [facility] Start: 1989 Administration of varicella zoster vaccine Zoster (Shingles) Vaccine (1 of 2) [facility] Start: 1989 DTaP,Tdap and Td Vaccines (1 - Tdap) DTaP,Tdap and Td Vaccines (1 - Tdap) [facility] Start: 1982 [facility] Statin Use: Cardiovascular Statin Use: Cardiovascular [facility] Start: 1970 Tobacco Counseling Tobacco Counselin g [facility] Bacteria identified in Urine by Culture Urine culture Microbiology Routine Incontinence of urine in female Frequency of urination Urgency of urination 05/20/2025 12:28 PM EDT [facility] [employer] Renal function 2000 panel - Serum or Plasma [facility] End: 03-17-2026 Unlisted Lab Test Unlisted Lab Test Lab Routine Bronchogenic cancer of right lung ([facility]) 1 Occurrences starting 03/17/2025 until 03/17/2026 [employer] Work Phone: Comment on above: 1 Occurrences starti ng 03/17/2025 until 03/17/2026 Urinalysis Urinalysis Lab R outine Incontinence of urine in female Frequency of urination Urgency of urination 05/20/2025 12:28 PM EDT [employer] Work Phone: [facility] Immunizations Immunization Date Immunization Notes Care Provider Darnell alyse 06-11-2011 influenza virus vacc ine, unspecified formulation [facility] Communication Technician [facility] Payers Date Payer Category Payer Medicaid [place] [employer] [id number] 2019-Present [phone] [address] [place] [id number] 2019 Medicaid [facility] [id number] 2019 Medicaid [id number] [id number] 1970 Unknown [id number] 2..[id number] 1970 Unknown [id number] 2.16.840.1.086004.3.579.2.128 1970 Unknown [id number] [id number] 1970 Unknown [id number] 2.16.840.1.907200.3.579.2.128 1970 Unknown [id number] 2.16.840.1.603706.3.579.2.128 1970 Unknown [id number] 2.16.840.1.421178.3.579.2.128 1970 Unknown [id number] 2.16.840.1.059148.3.579.2.1286 1970 Unknown [id number] 2.16.840.1.139695.3.579.2.1286 1970 Unknown [id number] 2.16.840.1.603498.3.579.2.1286 1970 Unknown [id number] 2.16.840.1.306349.3.579.2.1286 1970 Unknown [id number] 2.16.840.1.040666.3.579.2.1286 1970 Unknown [id number] 2.16.840.1.461078.3.579.2.1286 1970 Unknown [id number] 2.16.840.1.645577.3.579.2.1286 1970 Unknown [id number] 2.16.840.1.985268.3.579.2.1286 1970 Unknown [id number] 2.16.840.1.333099.3.579.2.1286 1970 Unknown [id number] 2.16.840.1.622215.3.579.2.1286 1970 Unknown [id number] 2.16.840.1.415639.3.579.2.1286 1959 Unknown [id number] Social History Date Type Detail Facility Unknown if ever smoked [employer] Other Start: 09-17-2020 End: 08-05-2024 [facility] Start: 04-10-2024 End: 12-03-2024 Tobacco smoking status RUST Smoker (finding) [facility] Start: 03-12-2015 End: 06-18-2024 Sex Female (finding) [facility] Start: 1970 Sex Assigned At Female [facility] Start: 08-07-1984 End: 03-07-2025 Tobacco smoking status NHIS Smokes tobacco daily [facility] Start: 08-07-1984 History of tobacco use Cigarette Smoker [facility] Start: 09-17-2020 End: 08-05-2024 Cigarettes smoked current (pack per day) - Reported 1 [facility] Start: 08-05-2024 End: 03-07-2025 Tobacco use and exposure Smokeless tobacco non-user [facility] Start: 08-05-2024 End: 05-20-2025 Alcoholic beverage intake Current drinker of alcohol (finding) [facility] Adolescent depressio n screening assessment 8 [facility] Start: 06-26-2019 Gender identity Identifies as female gender (finding) [facility] Start: 06-26-2019 Sexual orientation Choose not to disclose [facility] History of tobacco use Passive smoker [facility] How hard is it for y ou to pay for the very basics like food, housing, medical care, and heating Hard [facility] Goals Date Patient Goal Desired Activity /State Personal health goal Clinical Notes 06-06-2023 to 05-20-2025 Love Maldonado, CARLOS-GELATIN POWDER MIXER - 05/20/2025 11:30 AM Rosangela Trinh RN - 05/15/2025 2:51 PM Rip Mcfarlane RN - 05/15/2025 2:18 PM Candida Sims RN - 04/18/2025 12:19 PM EDTPatient Instructions Note Date & Type Note Facility 05-20-2025 History of Present illness Narrative Sean Maldonado is a 54 y.o.female. Patient's [...] smear of cervix AM[facility] ([facility]) [facility] 2013 Before the age of 40. Risk factors drugs alcohol and tobacco. Angioplasty (LAST STRESS TE ST NORMALCORONARY/ INFERIOR HYPOKINESIS / [place] due to spasm) Back pain Bipolar disorder ([facility] Chronic kidney disease COPD (chronic obstructive pulmonary disease) ([facility]) Dissociative identity disorder ([facility]) Drug abuse ([facility]) Marijuana 2014 ?still using / benzo 2012/ crack cocaine 2002 / crylstal meth 1995 / prior admits and out pt programs Gingivitis Multiple dental fillings. and one molar extracted. Conrad teeth extracted Headache Herpes prior hx abn [...] humerus ORIF/ Ce avulsion chip Neuromuscular disorder ([facility]) 06/07/15 [employer] Panic attack Panic disorder Paresthesias in left hand bear bottle laceration Posttraumatic stress disorder PTSD (post-traumatic stress disorder) Pulmonary nodule Shortness of breath Social phobia Tobacco use Varicella Visual impairment Wears glasses SURGICAL HX Past Surgical History: Procedure Laterality Date BRONCHOSCOPY ALVEOLAR LAVAGE N/A 03/10/2025 Performed by Karen Diamond MD at [facility] CARDIAC CATHETERIZATION 2012 [place] at early age, (drug and alcohol, tobacco risk factors ) angioplasty ENDOBRONCHIAL ULTRASOUND BRONCHOSCOPY N/A 03/10/2025 Performed by Karen Diamond MD at [facility] FRACTURE SURGERY Left 06-10-11 left humerus [...] right humerus, C2 chip fragment TOOTH EXTRACTION Conrad teeth, molar extraction for cavities TUBAL LIGATION control FAMILY HX Family History Problem Relation Age of Onset Cancer Mother Table Worker Ovarian cancer Mother Not sure of cancer [...] Lung cancer Maternal Grandfather Liver cancer Other GREASE MONKEY cancer Ovarian cancer Other Breast cancer Neg [...] nasal congestion Patient was offered a medical media production manager and declined. Review of Systems Review of Systems Objective BP 160/90 Ht 170.2 cm (5' 7.01 ) Wt 58.1 kg (128 lb) LMP 11/06/2023 BMI 20.04 kg/m Physical Exam Assessment/Plan: Sean was seen today for urinary incontinence. Diagnoses and all orders for this visit: Incontinence of urine in female - diaper,brief,adult,disposable (DAY AND NIGHT BRIEF,MEDIUM) misc; 1 Pad. by miscellaneous route as needed (incontinence). - Ambulatory Referral to Pelvic Floor Occupational Therapy - [place], [place]; Future - Cancel: Urinalysis; Future - [...] All questions answered. Educational material provided through [employer]. Patient has a mammogram scheduled for next month. RTO for annual (due in July) or sooner as needed. LACHELLE Barboza APRN-CNP 05/20/25 1228 documented in this encounter [facility] 05-15-2025 History of Present illness Narrative FYI ===View-only below this line=== ----- Message ----- From: Sydni Mcfarlane RN Sent: 05/15/2025 2:42 PM EDT To: [facility] Patient called to request cancellation of clinic appointment with Dr Perales 05/16/25 She reports that during prior clinic visit she was upset and hesitant to discuss moving forward with planning and treatments, and states that Dr Perales said 'I am here now, but if you don't like me and don't trust Doctors then you can try to go to [facility]' Patient reports she did have a Med Onc Consult at She also had stress test performed but this procedure was stopped by the technicians half way through Patient reports she was advised she must now see Dr Reno/Cardiology [facility] to further discuss cardiology concerns Patient states she does not want to discuss treatment(s) for lung cancer until she knows extent of cardiac issues She may or may not reschedule follow up with Dr Perales, but indicates she will likely pursue treatment at [facility] documented in this encounter [facility] 05-15-2025 History of Present illness Narrative Patient called to request cancellation of clinic appointment with Dr Perales 05/16/25 She reports that during prior clinic visit she was upset and hesitant to discuss moving forward with planning and treatments, and states that Dr Perales said 'I am here now, but if you don't like me and don't trust Doctors then you can try to go to [facility]' Patient reports she did have a Med Onc Consult at She also had stress test performed but this procedure was stopped by the technicians half way through Patient reports she was advised she must now see Dr Reno/Cardiology [facility] to further discuss cardiology concerns Patient states she does not want to discuss treatment(s) for lung cancer until she knows extent of cardiac issues She may or may not reschedule follow up with Dr Perales, but indicates she will likely pursue treatment at [facility] documented in this encounter [facility] [employer] [facility] 05-09-2025 Note HNO ID: [id number] Author: JOSE MANUEL GALICIA MD Service: ? Author Type: Physician Type: Progress Notes Filed: 05/19/2025 23:49 Note Text: Radiation Oncology - New Patient/Consult Note PATIENT NAME: Sean Maldonado PATIENT Signed: Jose Manuel Galicia MD I spent a total of 60 minutes on the date of the service which included preparing to see the patient, [id number] patient care, and counseling and educating the patient/family/caregiver. This document has been created with the use of voice recognition technology. It may contain inaccuracies, misspellings, inaccurate syntax or inappropriate word context that are a result of the inadequacies/shortcomings of said technology/software. [facility] 05-09-2025 Note HNO ID: [id number] Author: CHENCHO LAMBERT RN Service: ? Author Type: Registered Nurse Type: Progress Notes Filed: 05/19/2025 23:49 Note Text: Pacemaker/Defibrillator?N Previous Cancer(s)?N Previous Radiation?N Lupus/Scleroderma?N On body monitoring device?N Status: Post-menopausal. Chencho Lambert RN [facility] 05-08-2025 Note HNO ID: [id number] Author: LUIS BAH MD Service: ? Author Type: Physician Type: Progress Notes Filed: 05/08/2025 14:32 Note Text: PATIENT NAME: Sean Maldonado CLINIC NO.: [id number] ATTENDING PHYSICIAN: Luis Bah MD DATE OF [...] BASOP , ABSBASO PATH: Surgical Pathology Order: [id number] Component 1 mo ago Case Report Surgical Pathology Report Case: [id number] Authorizing Provider: Karen Diamond MD Collected: 03/10/2025 0956 Ordering Location: [facility] Received: 03/10/2025 1049 - Endoscopy Pathologist: Abhinav Pierre MD Specimen: Lung, Right, RUL Final Diagn (more content not included)... [facility] 04-30-2025 Note Subjective Patient ID: Sean Maldonado is a 54 y.o. female who presents for Follow-up (Patient is here today for a 1 year. Patient states she hasn't been feeling well. Patient states mar 12 2025 she was diagnosed with stage 2 lung cancer), Coronary Artery Disease, Hyperlipidemia, and Hypertension. Just diagnosed with Stage II lung cancer, sees Riaz Rosales in [place]. Now seeing doctors at [facility] for cancer care Does have chest pain [...] about 4 weeks (around 2025) for Recheck. [facility] 04-28-2025 Note HNO ID: [id number] Author: DANIKA SAENZ LSW Service: ? Author Type: Mud Jack Nozzleman Type: Progress Notes Filed: 04/29/2025 10:15 Note Text: Social Work Problem Referral Note INFORMATION/REFERRAL : Sean Maldonado 54 year old female was referred by LACHELLE Cosby to [facility] Social Work for the following reason(s): [...] about gas money. SW shared that the [employer] [facility] has a Cancer Care Fund that will [...] SW remains available to assist with completion. [facility] 04-28-2025 Note HNO ID: [id number] Author: LUIS BAH MD Service: ? Author Type: Physician Type: Progress Notes Filed: 04/28/2025 16:33 Note Text: PATIENT NAME: Sean Maldonado [facility] NO.: [id number] ATTENDING PHYSICIAN: Luis Bah MD DATE OF [...] BASOP , ABSBASO PATH: Surgical Pathology Order: [id number] Component 1 mo ago Case Report Surgical Pathology Report Case: [id number] Authorizing Provider: Karen Diamond MD Collected: 03/10/2025 0956 Ordering Location: [facility] Received: 03/10/2025 1049 - Endoscopy Pathologist: Abhinav Pierre MD Specimen: Lung, Right, RUL Final Diagnosis 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 at 1504 EDT Comment This case has been reviewed in intradepartmental consultation with one other pathologist who concurs with the diagnosis. See also case #[id number] of right upper lobe BAL and right hilar lymph node FNA. Addendum 2 Resu (more content not included)... [facility] 04-18-2025 History of Present illness Narrative The patient is here for follow up of PDL-[address] scans [address] Perales recommends PET scan varsha. F/u in 1 month to review PET Appointment made and patient aware, v/u documented in this encounter [facility] 04-18-2025 History of Present illness Narrative Images from the original note were not included. [facility] 04/18/25 Sean Maldonado is a 54 y.o. [...] smear of cervix AMI (acute myocardial infarction) ([facility]) 2012 Before the age of 40. Risk factors drugs alcohol and tobacco. Angioplasty (LAST STRESS TE ST NORMALCORONARY/ INFERIOR HYPOKINESIS / [place] due to spasm) Back pain Bipolar disorder ([facility]) Chronic kidney disease COPD (chronic obstructive pulmonary disease) ([facility] Dissociative identity disorder ([facility]) Drug abuse ([facility]) Marijuana 2014 ?still using / benzo 2012/ crack cocaine 2002 / crylstal meth 1995 / prior admits and out pt programs Gingivitis Multiple dental fillings. and one molar extracted. Conrad teeth extracted Headache Herpes prior hx abn [...] humerus ORIF/ Ce avulsion chip Neuromuscular disorder ([facility]) 06/07/15 [employer] Panic attack Panic disorder Paresthesias in left hand bear bottle laceration Posttraumatic stress disorder PTSD (post-traumatic stress disorder) Pulmonary nodule Shortness of breath Social phobia Tobacco use Varicella Visual impairment Wears glasses Past Surgical History: Procedure Laterality Date BRONCHOSCOPY ALVEOLAR LAVAGE N/A 03/10/2025 Performed by Karen Diamond MD at [facility] CARDIAC CATHETERIZATION 2012 [place] at early age, (drug and alcohol, tobacco risk factors ) angioplasty ENDOBRONCHIAL ULTRASOUND BRONCHOSCOPY N/A 03/10/2025 Performed by Karen Diamond MD at [facility] FRACTURE SURGERY Left 06-10-11 left humerus [...] right humerus, C2 chip fragment TOOTH EXTRACTION Conrad teeth, molar extraction for cavities TUBAL LIGATION control Family History Problem Relation Age of Onset Cancer Mother Table Worker Ovarian cancer Mother Not sure of cancer [...] Lung cancer Maternal Grandfather Liver cancer Other GREASE MONKEY cancer Ovarian cancer Other Breast cancer Neg Hx Anesthesia problems Neg Hx Social History Socioeconomic History Marital status: Legally Number of children: 3 Occupational History 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 [...] this note were generated using voice recognition [employer] dictation software. Although every effort was made to ensure the accuracy of this automated machine maintenance supervisor, some errors in machine maintenance supervisor may have occurred. CC: Patient Care Team: Cindy Perez MD as PCP - General (Internal Medicine) Love Maldonado APRN-MAGED as Nurse Practitioner (Obstetrics & Gynecology) Marvin Erazo MD as Referring Physician (Nephrology) PCP:CINDY PEREZ Referring MD: Cindy Perez MD documented in this encounter [facility] 04-18-2025 Instructions Angeles Perales MD - 04/18/2025 11:30 AM EDT PET scan varsha. F/u in 1 month to review PET documented in this encounter [facility] 03-17-2025 History of Present illness Narrative Images from the original note were not included. [facility] 03/17/25 Sean Maldonado is a 54 y.o. [...] smear of cervix AMI (acute myocardial infarction) ([facility]) 2012 Before the age of 40. Risk factors drugs alcohol and tobacco. Angioplasty (LAST STRESS TE ST NORMALCORONARY/ INFERIOR HYPOKINESIS / [place] due to spasm) Back pain Bipolar disorder ([facility]) Chronic kidney disease COPD (chronic obstructive pulmonary disease) ([facility]) Dissociative identity disorder ([facility]) Drug abuse ([facility]) Marijuana 2014 ?still using / benzo 2012/ crack cocaine 2002 / crylstal meth 1995 / prior admits and out pt programs Gingivitis Multiple dental fillings. and one molar extracted. Conrad teeth extracted Headache Herpes prior hx abn [...] humerus ORIF/ Ce avulsion chip Neuromuscular disorder ([facility]) 06/07/15 [employer] Panic attack Panic disorder Paresthesias in left hand bear bottle laceration Posttraumatic stress disorder PTSD (post-traumatic stress disorder) Pulmonary nodule Shortness of breath Social phobia Tobacco use Varicella Visual impairment Wears glasses Past Surgical History: Procedure Laterality Date BRONCHOSCOPY ALVEOLAR LAVAGE N/A 03/10/2025 Performed by Karen Diamond MD at [facility] CARDIAC CATHETERIZATION 2012 [place] at early age, (drug and alcohol, tobacco risk factors ) angioplasty ENDOBRONCHIAL ULTRASOUND BRONCHOSCOPY N/A 03/10/2025 Performed by Karen Diamond MD at [facility] FRACTURE SURGERY Left 06-10-11 left humerus [...] right humerus, C2 chip fragment TOOTH EXTRACTION Conrad teeth, molar extraction for cavities TUBAL LIGATION control Family History Problem Relation Age of Onset Cancer Mother Table Worker Ovarian cancer Mother Not sure of cancer [...] Lung cancer Maternal Grandfather Liver cancer Other GREASE MONKEY cancer Ovarian cancer Other Breast cancer Neg Hx Anesthesia problems Neg Hx Social History Socioeconomic History Marital status: Legally Number of children: 3 Occupational History 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 See also case #[id number] of right upper lobe biopsy. Intraoperative Consultation 2. Right hilar lymph node (R10), fine needle aspirate: Pass 1: Highly atypical cells, suspicious for neoplasm. Pass 2-3: Atypical. Pass 4: Atypical cells, suspicious for neoplasm. Dr. Pierre Interpretation provided at [facility], [facility] [place] [address]. Gross Description Received was 20ml of cloudy [...] Fluid 76 % Lymphocyte, Fluid 5 % [place]/Macro, Fluid 19 % Total Cells Counted 100 % Surgical Pathology Collection Time: 03/10/25 9:56 AM Result Value Ref Range Case Report Surgical Pathology Report Case: [id number] Authorizing Provider: Karen Diamond MD Collected: 03/10/2025 0956 Ordering Location: [facility] Received: 03/10/2025 1049 - Endoscopy Pathologist: Abhinav Pierre MD Specimen: Lung, Right, RUL Final Diagnosis 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 Comment This case has been reviewed in intradepartmental consultation with one other pathologist who concurs with the diagnosis. See also case #[id number] of right upper lobe BAL and right [...] minute Time in formalin before processin hours (1,ns,E29-25251, m8.1) SW Embedded Images Diagnosis Problem list: Problem List Items Addressed This Visit None Impression: Right upper lobe squamous cell carcinoma with hilar involvement Heart attack at age of 40s Daily marijuana Plan: I reviewed the imaging and pathology with patient in details. Await for PET and MRI of brain to complete staging. Patient wants to try holistic method first. Pd-l1 on Case: [id number] (keytruda) F/u in early 04/2025 Thank you. Angeles Perales MD Please note that portions of this note were generated using voice recognition M*Modal dictation software. Although every effort was made to ensure the accuracy of this automated machine maintenance supervisor, some errors in machine maintenance supervisor may have occurred. CC: Patient Care Team: Cidny Perez MD as PCP - General (Internal Medicine) Love Maldonado APRN-GELATIN POWDER MIXER as Nurse Practitioner (Obstetrics & Gynecology) Marvin Erazo MD as Referring Physician (Nephrology) PCP:CINDY PEREZ Referring MD: Cindy Perez MD documented in this encounter [facility] 03-17-2025 Instructions Angeles Perales MD - 03/17/2025 10:00 AM EDT Pd-l1 on Case: [id number] (keytruda) F/u in early 04/2025 documented in this encounter [facility] 03-07-2025 Instructions Formatting of th is note might be different from the original. Your surgery/procedure is scheduled at [facility] on 03/10/2025 at 10 am Arrival Time 8 am [facility] Address: [address] [place] [address] Park in P1 Parking lot located on [facility]. Report to the Entrance B. Check in at the information desk. The waiting room is located on the second floor. If you have any questions prior to surgery, please call Pre-Admission Clinic at [phone] between 7:30 am and 4:30 pm Monday through Monday. If you have questions the morning of surgery, please call the Pre-op Department at [phone]. Notify your SURGEON if you develop any [...] piercing's, hair extensions that contain metal, nail venezuelan, make-up, and contact lens. You may brush [...] RIGHTS AND RESPONSIBILITIES As a patient at [facility], you have the right to: Receive medical care and be informed of who is taking care of you Be treated with dignity and respect Have a family member/member service representative of choice and your physician notified of your admission Receive information and actively participate in decisions about your care and treatment Refuse care, treatment and services Decide who may provide your support and speak for you Access jainism and spiritual services Participate in ethical issues [...] of hospital charges and payment methods Patient/patient member service representative responsibilities are to: Provide information about health status to facilitate care, treatment and services Follow the treatment, plan, keep appointments and speak up when you do not understand the plan Respect the rights of other patients and healthcare personnel Follow organizational rules and regulations that support quality care and a safe environment Fulfill financial obligations as promptly as possible [facility] 03-07-2025 Miscellaneous Notes Your surgery/procedure is scheduled at [facility] on 03/10/2025 at 10 am Arrival Time 8 am [facility] Address: [address] [place] [address] Park in P1 Parking lot located on [facility]. Report to the Entrance B. Check in at the information desk. The waiting room is located on the second floor. If you have any questions prior to surgery, please call Pre-Admission Clinic at [phone] between 7:30 am and 4:30 pm Monday through Monday. If you have questions the morning of surgery, please call the Pre-op Department at [phone]. Notify your SURGEON if you develop any [...] weekly, hold 1 week prior to surgery: Brigidaro . Blood thinners: Please contact your prescribing [...] piercing's, hair extensions that contain metal, nail venezuelan, make-up, and contact lens. You may brush [...] RIGHTS AND RESPONSIBILITIES As a patient at [facility], you have the right to: Receive medical care and be informed of who is taking care of you Be treated with dignity and respect Have a family member/member service representative of choice and your physician notified of your admission Receive information and actively participate in decisions about your care and treatment Refuse care, treatment and services Decide who may provide your support and speak for you Access jainism and spiritual services Participate in ethical issues [...] of hospital charges and payment methods Patient/patient member service representative responsibilities are to: Provide information about [...] promptly as possible documented in this encounter [facility] 03-07-2025 Miscellaneous Notes I left a message on 's phone too documented in this encounter [facility] 03-07-2025 Telephone encounter Note I left a message on 's phone too [facility] 03-06-2025 History of Present illness Narrative Images from the original note were not included. [address] [address] Patient: Sean Maldonado Date of : 1970 [...] smear of cervix AMI (acute myocardial infarction) ([facility]) Before the age of 40. Risk factors drugs alcohol and tobacco. Angioplasty (LAST STRESS TE ST NORMALCORONARY/ INFERIOR HYPOKINESIS / [place] due to spasm) Back pain Chronic kidney disease Dissociative identity disorder ([facility]) Drug abuse ([facility]) Marijuana 2014 ?still using / benzo 2012/ crack cocaine 2002 / crylstal meth 1995 / prior admits and out pt programs Gingivitis Multiple dental fillings. and one molar extracted. Conrad teeth extracted Herpes prior hx abn blood [...] humerus ORIF/ Ce avulsion chip Neuromuscular disorder ([facility]) 06/07/15 [employer]iet[employer] Panic attack Paresthesias in left hand bear bottle laceration Posttraumatic stress disorder Social phobia Tobacco use Varicella Visual impairment Wears glasses Past Surgical History: Procedure Laterality Date ANGIOPLASTY ARM SURGERY CARDIAC CATHETERIZATION [place] at early age, (drug and alcohol, tobacco [...] right humerus, C2 chip fragment TOOTH EXTRACTION Conrad teeth, molar extraction for cavities TUBAL LIGATION control Family History Problem Relation Age of Onset Cancer Mother Table Worker Ovarian cancer Mother Not sure of cancer type Alcohol abuse Mother Depression Mother Drug abuse Mother Mental illness Mother Diabetes Father Alcohol abuse Father Arthritis Father Early Father Hypertension Father Liver cancer Other GREASE MONKEY cancer Ovarian cancer Other Ovarian cancer Maternal [...] SHAHRIAR ROSALES MD documented in this encounter [facility] 03-05-2025 Miscellaneous Notes New patient referral for hemoptysis, she has been scheduled for PFT 03/06/25. Should this be held? Please advise. documented in this encounter [facility] 03-05-2025 Telephone encounter Note New patient referral for hemoptysis, she has been scheduled for PFT 03/06/25. Should this be held? Please advise. [facility] 02-04-2025 Miscellaneous Notes Fax received from Dr Perez to schedule pt for a MARKETING OPERATIONS INTERN referral, pt is not a MARKETING OPERATIONS INTERN was last seen by D on 06/16/23. Attempted to phone pt to schedule appt and unable to lm as vm full. documented in this encounter [facility] 02-04-2025 Telephone encounter Note Fax received from Dr Perez to schedule pt for a MARKETING OPERATIONS INTERN referral, pt is not a MARKETING OPERATIONS INTERN was last seen by Helen on 06/16/23. Attempted to phone pt to schedule appt and unable to lm as vm full. [facility] 12-03-2024 Evaluation note Diagnosis Onset Date Resolution Arteriolonephrosclerosis acute December 03, 2024 2:23pm Stage 3a chronic kidney disease acute December 03, 2024 2:23pm Vitamin D deficiency acute Apri l 2024 2:23pm [facility] Work Phone: 1(359) 540-495204-02-2025 Miscellaneous Notes* Telephone Encounter - Sobia Lujan [...] RN 11/06/24 11:28 AM [facility] Telephone encounter Note* Telephone Encounter - Sobia Lujan MA - 11/06/2024 11:08 AM EDT Pt called with billing question. Please advise, thank you! - Sobia Lujan MA 11/06/24 11:09 AM [facility] [employer] [id number] Telephone encounter Note* Telephone Encounter - Jaci [...] understanding.- Jaci Jon RN 11/06/24 11:28 AM [facility]12-30-2024 History of Present illness Narrative* AUBREE Wu - 08/05/2024 2:00 PM EST Images from the original note were not included. Chief Complaint: Well-woman gynecology exam SUBJECTIVE Sean Maldonado is a 54 y.o. female patient who [...] does use medical marijuana. Her PCP is AUBREE COOLEY. The following portions of the patient's history [...] masses or organomegaly Vulva: normal, Bartholin's, Urethra, Rifton's normal Vagina: Bleeding: no Discharge: no Cervix: [...] local pharmacy for vaccine ([facility], [facility], etc). Silvia Hamilton, CARLOS-GELATIN POWDER MIXER 08/05/24 9678 [facility] History of Present illness Narrative* BRITTANY Ervin - 06/07/2024 4:57 PM EDT SCREENING MAMMOGRAM ORDERED PER REQUEST. PT. TO F/U W/SUPERVISOR MULTIFOCAL LENS OR PCP FOR LUNG IMAGING REQUESTED BRITTANY Ervin 06/07/24 1659 [facility] Miscellaneous Notes* Telephone Encounter - Niki Price [...] returned call & advised of order. Gave [facility] Central Scheduling phone number. [facility] Telephone encounter Note* Telephone Encounter - Niki Price - 06/07/2024 1:01 PM EDT Patient is requesting order for Mammogram and lung CT. Patient has Annual scheduled on 08/05/24 andwould like to have imaging done before end of the year. Please advise. Thank you [facility]11-01-2024 Telephone encounter Note* Telephone Encounter - Niki Price - 06/07/2024 1:01 PM EDT Chapis ordered Mammogram. Will you please order lung CT. Please advise. Thank you [facility]11-01-2024 Telephone encounter Note* Telephone Encounter - AUBREE Fernandez - 06/07/2024 1:01 PM EDT Order placed for low dose lung ct. Patient can call to get that scheduled. [facility]11-01-2024 Telephone encounter Note* Telephone Encounter - Niki Price - 06/07/2024 1:01 PM EDT Tried to call Patient to advise lung CT ordered. No answer, no VM. [facility]11-01-2024 Telephone encounter Note* Telephone Encounter - Niki Price - 06/07/2024 1:01 PM EDT Patient returned call & advised of order. Gave [employer] Central Scheduling phone number. [employer] [phone] History of Present illness Narrative* Love Ritter, CYBER DEFENSE ANALYST-GELATIN POWDER MIXER - 08/03/2023 1:00 PM EST Sean Maldonado is a 53 y.o.female. Patient's last menstrual period was 2023.. She presents for a pap only. Patient had an annual needle molder exam on 06/07/23 and no pap was [...] smear of cervix AMI (acute myocardial infarction) ([facility]) Before the age of 40. Risk factors drugs alcohol and tobacco. Angioplasty (LAST STRESS TE ST NORMALCORONARY/ INFERIOR HYPOKINESIS / [place] due to spasm) Back pain Chronic kidney disease Dissociative identity disorder ([facility]) Drug abuse ([facility]) Marijuana 2014 ?still using / benzo 2012/ crack cocaine 2002 / crylstal meth 1995 / prior admits and out pt programs Gingivitis Multiple dental fillings. and one molar extracted. Conrad teeth extracted Herpes prior hx abn blood [...] humerus ORIF/ Ce avulsion chip Neuromuscular disorder ([facility]) 06/07/15 [employer]iet[employer] Panic attack Paresthesias in left hand bear bottle laceration Posttraumatic stress disorder Social phobia Tobacco use Varicella Visual impairment Wears glasses SURGICAL HX Past Surgical History: Procedure Laterality Date ANGIOPLASTY ARM SURGERY CARDIAC CATHETERIZATION [place] at early age, (drug and alcohol, tobacco [...] right humerus, C2 chip fragment TOOTH EXTRACTION Conrad teeth, molar extraction for cavities TUBAL LIGATION control FAMILY HX Family History Problem Relation Age of Onset Cancer Mother Table Worker Ovarian cancer Mother Not sure of cancer type Alcohol abuse Mother Depression Mother Drug abuse Mother Mental illness Mother Diabetes Father Alcohol abuse Father Arthritis Father Early Father Hypertension Father Liver cancer Other GREASE MONKEY cancer Ovarian cancer Other Ovarian cancer Maternal [...] mg nebulization Once PRN Kim Huber Jameson APRN-GELATIN POWDER MIXER ALLERGIES Allergies Allergen Reactions No Known Drug [...] guidelines. Questions answered. Educational material provided through [employer] for annual (due June 2024) or sooner as needed. JULIA Zuluaga APRN-CNP Lisa M Franco, APRN-CNP 08/03/23 1321 documented in this encounterHenry County HospitalAlgorithmics [facility] [id number] Evaluation note* Encounter Date Diagnosis Assessment Notes [...] will check 25-hydroxy vitamin D next visit [facility] Other Evaluation note* Diagnosis Onset Date Resolution Status Admit Date Arteriolonephrosclerosis acute June 18, 2024 2:42pm Stage 3a chronic kidney disease acut e June 18, 2024 2:42pm Vitamin D deficiency acute Nove mbvalente 2023 2:42pm [facility] Work Phone: Evaluation note* Diagnosis Women's annual routine gynecological examination- Primary Cervical smear, as part of routine gynecological examination Screening for malignant neoplasm of the cervix [facility] Diagnosis Cervical smear, as part of routine gynecological examination- Primary Screening for malignant neoplasm of the cervix Pap smear for cervical cancer screening Screening for malignant neoplasm of the cervix [facility]* Diagnosis Screening mammogram for breast cancer- Primary documented [facility]* Diagnosis Screening for lung cancer- Primary History of smoking 30 or more pack years documented [facility] encounter [facility]* Diagnosis Chronic obstructive pulmonary disease, unspecified COPD type ([facility]) [J44.9]- Primary Abnormal CT of the chest Nonspecific (abnormal) findings on radiological and other examination of other intrathoracic organs documented [facility] encounter [facility]* Diagnosis Abnormal CT scan, chest- Primary Blood in sputum Hemoptysis Hilar adenopathy Enlargement of lymph nodes Tobacco use disorder COPD, mild (CMS-HCC) documented [facility]* Diagnosis 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 documented [facility]* Diagnosis 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 documented [facility]* Diagnosis 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 documented [facility]* Diagnosis Incontinence of urine in female- Primary Frequency of urination Urinary frequency Urgency of urination documented [facility] encounter [facility] SystemHistory general Narrative - Reported* Type Description Date Medical History HTN (hypertension) Medical History Hypercholesterolemia Medical History WA (myocardial infarction) Medical History PTSD (post-traumatic stress diso rder) Medical History CAD (CORONARY ARTERY DISEASE) Medical History COPD (CHRONIC OBSTRUCTIVE PULMON YOSEF DISEASE) Medical History OCD (OBSESSIVE COMPULSIVE DISORD ER) Medical History DISSOCIATIVE IDENTITY DISORDER Medical History BI POLAR DISORDER Surgical History fracture repair arm, leg Surgical History hand surgery Surgical History cardiac catheterization Surgical History tubal ligation Hospitalization History see above [facility] Other InstructionsNot on filedocumented in this encounter [facility] [employer] SystemInstructions* Attachments The following attachments cannot be sent through Care Everywhere. * Cervical cancer screening tests ([employer]) documented in this encounterProSelect [facility] Hospital [facility] [email or web address] SystemInstructionsNot on file documented in this encounterProSelect [facility] [email or web address] SystemInstructionsNot on file documented in this encounterProSelect [facility] AkronThename.is SystemInstructionsNot on file documented in this encounterBrattleboro Memorial Hospitaldemandmart SystemInstructionsNot on file documented in this encounterProdemandmart SystemInstructionsNot on file documented in this encounterProdemandmart SystemInstructionsNot on file documented in this encounterHenry County HospitalThename.is SystemInstructions* Attachments The following attachments cannot be sent through Care Everywhere. * Urinary incontinence in females (Tamazight) documented in this encounterHenry County HospitalAlgorithmics [facility] Summary Purpose Family History Relationship Condition Age at Onset Recorded Date/T sanket father Family history of mental disorder Unknown Unknown mother Malignant neoplasm Unknown Family history of mental disorder Unknown Advance Directives Advance Directive Response Recorded Date/ Time Advance [...] and content) DATE CREATED AUTHOR 01/26/2018 [facility] DATE CREATED AUTHOR AUTHOR'S ORGANIZ ATION 08/06/2024 [facility] DATE CREATED AUTHOR AUTHOR'S ORGANIZ ATION 05/01/2025 [facility] DATE CREATED AUTHOR AUTHOR'S ORGANIZ ATION 05/09/2025 [facility] DATE CREATED AUTHOR AUTHOR'S ORGANIZ ATION 05/13/2025 [facility] DATE CREATED AUTHOR AUTHOR'S ORGANIZ ATION 05/15/2025 [facility] DATE CREATED AUTHOR AUTHOR'S ORGANIZ ATION 05/20/2025 [facility] REASON FOR VISIT (unrecogniz ed section and [...] weed Specialty Diagnoses / Procedures Referred By Contthao t Referred To Contact Pulmonary Disease / Pulmonary Medicine Diagnoses Blood in sputum Cindy ePrez MD [address] [place] [address] Phone: tel: fax: [facility] Pulmonary/Sleep Medicine [address] [address] Phone: tel: fax: Referral ID Status Reason Start Date Expiration Date Visits Requested Visits Authorized [id number] Pending Review Specialty Services Required 03/04/2025 03/04/2026 1 1 Reason Comments New Patient Reason Comments Follow-up Reason Comments Urinary Incontinence Patient presents fo r urinary incontinence. Care Teams (unrecognized sec tion and content) Team Status: Active Member Role Status Dates GERRY Borjas Primary Care Provider Active Team Status: Inactive Member Role Status Dates Marvin Erazo MD Attending Provider Active Star t: June 18, 2024 End: June 18, 2024 GERRY Borjas Primary Care Provider Active Start: June 18, 2024 End: June 18, 2024 Slip Seat Coverer Relationship Specialty Start Date End Date Ligia Delgado, CYBER DEFENSE ANALYST-GELATIN POWDER MIXER [address] [place] [address] PCP - General Family Medicine 06/12/24 Slip Seat Coverer Relationship Specialty Start Date End Date Jorden Boswell CYBER DEFENSE ANALYST-[facility] [address] [facility] [place] [address] PCP - General Family Medicine 04/15/21 Slip Seat Coverer Relationship Specialty Start Date End Date Jorden Boswell CYBER DEFENSE ANALYST-GELATIN POWDER MIXER PCP - General Family Medicine 04/15/21 Slip Seat Coverer Relationship Specialty Start Date End Date Ligia Delgado CYBER DEFENSE ANALYST-GELATIN POWDER MIXER [address] [facility] [place] [address] PCP - General Family Medicine 06/12/24 Slip Seat Coverer Relationship Specialty Start Date End Date Ligia Delgado CYBER DEFENSE ANALYST-GELATIN POWDER MIXER [address] [facility] [place] [address] PCP - General Family Medicine 06/12/24 Slip Seat Coverer Relationship Specialty Start Date End Date Ligia Delgado CYBER DEFENSE ANALYST-GELATIN POWDER MIXER [address] [facility] [place] [address] PCP - General Family Medicine 06/12/24 Team Status: Active Member Role Status Dates Cnidy Perez MD Primary Care Provider Active Team Status: Inactive Member Role Status Dates Marvin Erazo MD Attending Provider Active Star t: December 03, 2024 End: December 03, 2024 Cindy Perez MD Primary Care Provider Active S tart: December 03, 2024 End: December 03, 2024 Slip Seat Coverer Relationship Specialty Start Date End Date Ligia Delgado CYBER DEFENSE ANALYST-GELATIN POWDER MIXER [address] [facility], [place] [address] PCP - General Family Medicine 06/12/24 Slip Seat Coverer Relationship Specialty Start Date End Date Ligia Delgado APRN-GELATIN POWDER MIXER [address] [facility], [place] [address] PCP - General Family Medicine 06/12/24 Slip Seat Coverer Relationship Specialty Start Date End Date Ligia Delgado CYBER DEFENSE ANALYST-GELATIN POWDER MIXER [address] [facility], [place] [address] PCP - General Family Medicine 06/12/24 Slip Seat Coverer Relationship Specialty Start Date End Date Cindy Perez MD [address] [place] [address] PCP - General Internal Medicine 03/07/25 Slip Seat Coverer Relationship Specialty Start Date End Date Cindy Perez MD [address] [place] [address] PCP - General Internal Medicine 03/07/25 Slip Seat Coverer Relationship Specialty Start Date End Date Cindy Perez MD [address] [place] [address] PCP - General Internal Medicine 03/07/25 Slip Seat Coverer Relationship Specialty Start Date End Date Cindy Perez MD [address] [place] [address] PCP - General Internal Medicine 03/07/25 Slip Seat Coverer Relationship Specialty Start Date End Date Cindy Perez MD [address] [place] [address] PCP - General Internal Medicine 03/07/25 Slip Seat Coverer Relationship Specialty Start Date End Date Cindy Perez MD [address] [place] [address] PCP - General Internal Medicine 03/07/25 Goals [...] BE BASED ON THE PRIMARY CLINICAL RECORDS. [employer] provides no warranty or guarantee of the accuracy or completeness of information in this document.
--- OUTSIDE RECORDS SUMMARY | 2025-05-21 15:16 | XMS_ITS | Encounter Summary ---
Author Organization [employer] Address [facility] [id number] [address] [place] [address] Care Team Providers Care Can Sorter Name Role Phone Cindy Perez MD Primary Care Provider [phone] Reason for Visit * Reason Onset Date Comments Med Refill 11/19/2018 Encounter Details Date Type Department Care Team (Late st Contact Info) Description 11/19/2018 Refill [facility] [address] [place] [phone] Earnestine Santos DO [address] [place] [address] Bipolar disorder, current episode depressed, severe, without psychotic features (CMS-HCC) Social History Tobacco Use Types Packs/Day Years [...] encounter Miscellaneous Notes * Telephone Encounter - Alea Mills CMA - 11/19/2018 3:42 PM EDT Seroquel will not be reordered due to pt is taking celexa and Dr. Santos will not be prescribing Clinidine per pt request at last appointment. documented in this encounter Plan of Treatment Upcoming Encounters Date Type Department Care Team (Late st Contact Info) Description 06/23/2025 1:30 PM EST Appointment [facility] - Mammography/DEXA Imaging [address] [place] [phone] documented as of this encounter Visit Diagnoses Diagnosis Bipolar disorder, current episode depressed, severe, without psychotic features (CMS-HCC) documented in this encounter Additional Health Concerns Assessment Noted Time PHQ-9 Depression Total Score: 18 019 10:00 AM EDT documented as of this encounter Care Teams Can Sorter Relationship Specialty Start Date End Date Cindy Perez MD [address] [place], [place] [phone] PCP - General Internal Medicine 03/07/25 documented as of this encounter
--- OUTSIDE RECORDS SUMMARY | 2025-05-21 15:17 | XMS_ITS | Encounter Summary ---
Author Organization [employer] s tem Address [facility] [id number] [address] [place] [address] Care Team Providers Care Box Repairer Name Role Phone Cindy Perez MD Primary Care Provider Encounter Details Date Type Department Care Team (Late st Contact Info) Description 09/18/2018 Telephone [facility] [address] [place] [phone] Earnestine Santos DO [address] [facility] [place] [phone] Social History Tobacco Use Types Packs/Day Years Used Date Smoking Tobacco: Every Day Cigarettes 1 30 Smokeless Tobacco: Never Alcohol Use Standard Drinks/Week Comments Yes 0 (1 standard drink = 0.6 oz pure alcohol) Dry since about 2017. Maximum intake had been 2-3 mixed drinks a day PHQ-2 Answer Date Recorded PHQ-2 Score 18 08/23/2018 Comments No Sex and Gender Information Value [...] Info) Description 06/23/2025 1:30 PM EST Appointment [facility] - Mammography/DEXA Imaging [address] [place] [address] documented as of this encounter Visit Diagnoses Not on filedocumented in this encounter Additional Health Concerns Assessment Noted Time PHQ-9 Depression Total Score: 18 019 2:00 PM EST documented as of this encounter Care Teams Box Repairer Relationship Specialty Start Date End Date Cindy Perez MD [address] [place] [address] PCP - General Internal Medicine 03/07/25 documented as of this encounter
--- OUTSIDE RECORDS SUMMARY | 2025-05-21 15:17 | XMS_ITS | Encounter Summary ---
Author Organization [employer] Address [facility] [id number] [address] [place] [address] Care Team Providers Care It Operations Specialist Name Role Phone Cindy Perez MD Primary Care Provider [phone] Reason for Visit * Reason Onset Date Comments Med Refill 11/16/2018 Encounter Details Date Type Department Care Team (Late st Contact Info) Description 11/16/2018 Refill [facility] [address] [facility] [address] [place] [place] [phone] Earnestine Santos DO [address] [facility] [facility] [address] [place] [address] Bipolar disorder, current episode depressed, severe, without [...] Info) Description 06/23/2025 1:[address] [facility] - Mammography/DEXA Imaging [address] [place] [phone] documented as of this encounter Visit Diagnoses Diagnosis Bipolar disorder, current episode depressed, severe, without psychotic features (CMS-HCC) documented in this encounter Additional Health Concerns Assessment Noted Time PHQ-9 Depression Total Score: 18 019 10:00 AM EDT documented as of this encounter Care Teams It Operations Specialist Relationship Specialty Start Date End Date Cindy Perez MD [address] [place] [address] PCP - General Internal Medicine 03/07/25 documented as of this encounter
--- OUTSIDE RECORDS SUMMARY | 2025-05-21 15:18 | XMS_ITS | Encounter Summary ---
Author Organization [employer] Address [facility] [place]-[id number] [address] [place] [address] Care Team Providers Care Software Developer Manager Name Role Phone Cindy Perez MD Primary Care Provider [phone] Encounter Details Date Type Department Care Team (Late st Contact Info) Description 06/01/2022 Telephone [facility] Ob[facility]ne[facility] [address] [place] [address] Orly Wilkes CMA Social History Tobacco Use Types Packs/Day Years [...] have Coronavirus / COVID-19? No / Unsure 05/31/2022 10:44 AM EDT documented as of this encounter Miscellaneous Notes * Telephone Encounter - Orly Wilkes CMA - 06/01/2022 8:42 AM EDT Patient called in stating they will not let her schedule breast MRI because her previous mammogram was not recent enough. I remember this happening with another patient, but I don't remember what ended up happening. I wanted to ask if she will need another mammogram? Please advise. * Telephone Encounter - AUBREE Mccollum - 06/01/2022 8:42 AM EDT I called the [facility] and talked with Yusra and asked why patient cannot get scheduled. She looked in their system and did not see a recent mammogram. I explained that patient hada mammogram here in [facility] in december 2021 and I can see it in our system. She then lookedsomewhere else, and was able to see the mammogram. She states she will print the report and take itto the staff that schedules the MRIs and that they will call the patient to get her scheduled for July. * Telephone Encounter - Orly Wilkes CMA - 06/01/2022 8:42 AM EDT Patient notified and verbalized understanding documented in this encounter Plan of Treatment Upcoming Encounters Date Type Department Care Team (Late st Contact Info) Description 06/23/2025 1:30 PM EST Appointment [facility] - Mammography/DEXA Imaging [address] [place] [phone] documented as of this encounter Visit Diagnoses Not on filedocumented in this encounter Additional Health Concerns Assessment Noted Time PHQ-9 Depression Total Score: 8 04/10/20 19 8:00 AM EDT documented as of this encounter Care Teams Software Developer Manager Relationship Specialty Start Date End Date Cindy Perez MD [address] [place], [place] [phone] PCP - General Internal Medicine 03/07/25 documented as of this encounter
--- OUTSIDE RECORDS SUMMARY | 2025-05-21 15:18 | XMS_ITS | Encounter Summary ---
Author Organization [employer] s tem Address [facility] [place]-[id number] [address] [place] [address] Care Team Providers Care Director Check Name Role Phone Cindy Perez MD Primary Care Provider [phone] Reason for Visit * Reason Comments Med Refill Encounter Details Date Type Department Care Team (Late st Contact Info) Description 09/03/2017 Refill [facility] [address] [place] [address] Jenifer Oconnor, AUTOMAT WATCHER-FABRIC CUTTER [address] [place] [phone] Bipolar disorder, current episode depressed, severe, without psychotic features (HCC) Social History Tobacco Use Types Packs/Day Years Used Date Smoking Tobacco: Every Day Cigarettes 1 30 Smokeless Tobacco: Never Alcohol Use Standard Drinks/Week Comments No 0 (1 standard drink = 0.6 oz pur e alcohol) Comments No Sex and Gender Information Value Date Recorded Sex Assigned at Female 06/26/2019 5:34 AM EST Legal Sex Female 12:12 PM EDT Gender Identity Female 06/26/2019 5:34 AM EST Sexual Orientation Choose not to disclose 2018 5:34 AM EST documented as of this encounter Plan of Treatment Upcoming Encounters Date Type Department Care Team (Late st Contact Info) Description 06/23/2025 1:30 PM EST Appointment [facility] - Mammography/DEXA Imaging [address] [place] [phone] documented as of this encounter Visit Diagnoses Diagnosis Bipolar disorder, current episode depressed, severe, without psychotic features (CMS-HCC) documented in this encounter Additional Health Concerns Assessment Noted Time PHQ-9 Depression Total Score: 18 017 2:00 PM EDT documented as of this encounter Care Teams Director Check Relationship Specialty Start Date End Date Cindy Perez MD [address] [place] [address] PCP - General Internal Medicine 03/07/25 documented as of this encounter
--- OUTSIDE RECORDS SUMMARY | 2025-05-21 15:18 | XMS_ITS | Encounter Summary ---
Author Organization [facility] Address [id number] [address] [place] [address] Care Team Providers Care Glove Wrapper Name Role Phone Cindy Perez MD Primary Care Provider [phone] Reason for Visit * Reason Onset Date Comments Med Refill 08/02/2018 Encounter Details Date Type Department Care Team (Late st Contact Info) Description 08/02/2018 Refill [facility] [address] [place] [address] Hemalatha Caraballo, [facility] [address] [phone] Bipolar disorder, current episode depressed, severe, without psychotic features ([facility]-HCC) Social History Tobacco Use Types Packs/Day Years [...] AM EST documented as of this encounter Miscellaneous Notes * Telephone Encounter - Deedee Marroquin MA - 08/02/2018 4:41 PM EST Med request * Telephone Encounter - AUBREE Cantu - 08/02/2018 4:41 PM EST This patient has not been seen since 01/16/2018. Refills for 30 days sent to pharmacy documented in this encounter Plan of Treatment Upcoming Encounters Date Type Department Care Team (Late st Contact Info) Description 06/23/2025 1:[address] [facility] - Mammography/DEXA Imaging [address] [place] [phone] documented as of this encounter Visit Diagnoses Diagnosis Bipolar disorder, current episode depressed, severe, without psychotic features (CMS-HCC) documented in this encounter Additional Health Concerns Assessment Noted Time PHQ-9 Depression Total Score: 18 017 2:00 PM EDT documented as of this encounter Care Teams Glove Wrapper Relationship Specialty Start Date End Date Cindy Perez MD [address] [place] [address] PCP - General Internal Medicine 03/07/25 documented as of this encounter
--- OUTSIDE RECORDS SUMMARY | 2025-05-21 15:18 | XMS_ITS | Encounter Summary ---
Author Organization [facility] Address [facility] [place]-[id number] [address] [place] [address] Care Team Providers Care Health And Safety Director Name Role Phone Cindy Perez MD Primary Care Provider [phone] Reason for Visit * Reason Onset Date Comments Med Refill 01/08/2018 Encounter Details Date Type Department Care Team (Late st Contact Info) Description 01/08/2018 Refill [facility] [address] [place] [address] Deedee Marroquin RN Social History Tobacco Use Types Packs/Day [...] Info) Description 06/23/2025 1:30 PM EST Appointment [facility] - Mammography/DEXA Imaging [address] [place] [address] documented as of this encounter Visit Diagnoses Not on filedocumented in this encounter Additional Health Concerns Assessment Noted Time PHQ-9 Depression Total Score: 18 017 2:00 PM EDT documented as of this encounter Care Teams Health And Safety Director Relationship Specialty Start Date End Date Cindy Perez MD [address] [place] [address] PCP - General Internal Medicine 03/07/25 documented as of this encounter
--- OUTSIDE RECORDS SUMMARY | 2025-05-21 15:18 | XMS_ITS | Encounter Summary ---
Author Organization [employer] Address [facility] [place]-[id number] [address] [place] [address] Care Team Providers Care Technical Support 1 Software Engineer Name Role Phone Cindy Perez MD Primary Care Provider [phone] Encounter Details Date Type Department Care Team (Late st Contact Info) Description 06/01/2022 Telephone [facility] Ob[facility]s/Gynecology [address] [place] [address] Orly Wilkes CMA Social History Tobacco [...] AM EDT documented as of this encounter Plan of Treatment Upcoming Encounters Date Type Department Care Team (Late st Contact Info) Description 06/23/2025 1:30 PM EST Appointment [facility] - Mammography/DEXA Imaging [address] [place] [phone] documented as of this encounter Visit Diagnoses Not on filedocumented in this encounter Additional Health Concerns Assessment Noted Time PHQ-9 Depression Total Score: 8 04/10/20 19 8:00 AM EDT documented as of this encounter Care Teams Technical Support 1 Software Engineer Relationship Specialty Start Date End Date Cindy Perez MD [address] [place], [place] [phone] PCP - General Internal Medicine 03/07/25 documented as of this encounter
--- OUTSIDE RECORDS SUMMARY | 2025-05-21 15:18 | XMS_ITS | Encounter Summary ---
Author Organization [facility] Address [facility] [place]-[id number] [address] [place] [address] Care Team Providers Care Agricultural Extension Agent Name Role Phone Cindy Perez MD Primary Care Provider [phone] Reason for Visit * Reason Onset Date Comments Med Refill 08/02/2018 Encounter Details Date Type Department Care Team (Late st Contact Info) Description 08/02/2018 Refill [facility] [address] [place] [address] Hemalatha Caraballo, [facility] [address] [phone] Bipolar disorder, current episode depressed, severe, without psychotic features ([facility]-HCC) Social History Tobacco Use Types Packs/Day Years [...] - 08/02/2018 4:41 PM EST Med request documented in this encounter Plan of Treatment Upcoming Encounters Date Type Department Care Team (Late st Contact Info) Description 06/23/2025 1:30 PM EST Appointment [facility] - Mammography/DEXA Imaging [address] [place] [phone] documented as of this encounter Visit Diagnoses Diagnosis Bipolar disorder, current episode depressed, severe, without psychotic features (CMS-HCC) documented in this encounter Additional Health Concerns Assessment Noted Time PHQ-9 Depression Total Score: 18 017 2:00 PM EDT documented as of this encounter Care Teams Agricultural Extension Agent Relationship Specialty Start Date End Date Cindy Perez MD [address] [place] [address] PCP - General Internal Medicine 03/07/25 documented as of this encounter
--- OUTSIDE RECORDS SUMMARY | 2025-05-21 15:19 | XMS_ITS ---
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 2024 Prolonged PTT 07/24/2013 Ankle instability 04/02/2012 Tibia/fibula fracture, shaft 04/02/2012 Humerus shaft fracture 04/02/2012 Current Treatment and Therapy Plans AMB PACLITAXEL 50 CARBOPLATIN 2 D1,8,15,22,29,36 - Q42D* Plan Start Date: 05/08/2025 Plan Provider:Luis Bah MD Linked Problems 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
--- OUTSIDE RECORDS SUMMARY | 2025-05-21 15:19 | XMS_ITS | Encounter Summary ---
Author Organization [employer] Address [facility] [id number] [address] [place] [address] Care Team Providers Care Manager Loss Prevention Name Role Phone Cindy Perez MD Primary Care Provider [phone] Encounter Details Date Type Department Care Team (Late st Contact Info) Description 07/09/2021 Telephone [facility] Pulmonary/Sleep Medicine [address] [address] Nereyda Machado RN Social History [...] Telephone Encounter - Nereyda Machado RN - 07/09/2021 3:[address] denied by insurance I dont see an appt? * Telephone Encounter - Verito Zurita LPN - 07/09/2021 3:25 PM EST Her last 3 appt were cancelled documented in this encounter Plan of Treatment Upcoming Encounters Date Type Department Care Team (Late st Contact Info) Description 06/23/2025 1:30 PM EST Appointment [facility] - Mammography/DEXA Imaging [address] [place] [phone] documented as of this encounter Visit Diagnoses Not on filedocumented in this encounter Additional Health Concerns Assessment Noted Time PHQ-9 Depression Total Score: 8 04/10/20 19 8:00 AM EDT documented as of this encounter Care Teams Manager Loss Prevention Relationship Specialty Start Date End Date Cindy Perez MD [address] [place] [address] PCP - General Internal Medicine 03/07/25 documented as of this encounter
--- OUTSIDE RECORDS SUMMARY | 2025-05-21 15:19 | XMS_ITS | Encounter Summary ---
Author Organization [employer] Address [id number] [address] [place] [address] Care Team Providers Care Hardening Machine Operator Name Role Phone Cindy Perez MD Primary Care Provider [phone] Encounter Details Date Type Department Care Team (Late st Contact Info) Description 03/30/2021 Orders Only [facility] Card[facility] [address] [place] [address] External, Scanning Provider Social History Tobacco Use Types Packs/Day Years [...] Info) Description 06/23/2025 1:30 PM EST Appointment [facility] - Mammography/DEXA Imaging [address] [place] [address] documented as of this encounter Procedures Procedure Name Priority Date/Time Associated Diagnosis Comments ECG 12-LEAD Routine 06/09/2017 ECG 12-LEAD Routine 04/27/2017 XR CHEST 2 VWS Routine 01/13/2017 documented in this encounter Results * ECG 12 lead (06/09/2017) us Scanning Provider External ECG ORDERABLES Final Result Performing Organization Address City/[facility] [address]/[facility] Co de Phone Number MANUALLY TRANSCRIBED RESULTS * ECG 12 lead (04/27/2017) us Scanning Provider External ECG ORDERABLES Final Result Performing Organization Address City/[facility] [address]/[facility] de Phone Number MANUALLY TRANSCRIBED RESULTS * X-ray chest 2 views (01/13/2017) Anatomical Region Laterality Modality Body, Chest N/A Computed Radiogr aphy us Scanning Provider External IMG DIAGNOSTIC IMAGIN G ORDERABLES Final Result documented in this encounter Visit Diagnoses Not on filedocumented in this encounter Additional Health Concerns Assessment Noted Time PHQ-9 Depression Total Score: 8 04/10/20 19 8:00 AM EDT documented as of this encounter Care Teams Hardening Machine Operator Relationship Specialty Start Date End Date Cindy Perez MD [address] [place] [address] PCP - General Internal Medicine 03/07/25 documented as of this encounter
--- OUTSIDE RECORDS SUMMARY | 2025-05-21 15:19 | XMS_ITS | Encounter Summary ---
Author Organization [employer] Address [facility] [place][id number] [address] [place] [address] Care Team Providers Care Leakage Tester Name Role Phone Cindy Perez MD Primary Care Provider [phone] Encounter Details Date Type Department Care Team (Late st Contact Info) Description 04/26/2021 Orders Only [facility] [address] [place] [address] External, Scanning Provider Social History Tobacco Use [...] have Coronavirus / COVID-19? No / Unsure 04/15/2021 12:55 PM EDT documented as of this encounter Plan of Treatment Upcoming Encounters Date Type Department Care Team (Late st Contact Info) Description 06/23/2025 1:30 PM EST Appointment [facility] - Mammography/DEXA Imaging [address] [place] [phone] documented as of this encounter Procedures Procedure Name Priority Date/Time Associated Diagnosis Comments ECHO DOPPLER Routine 12/06/2019 documented in this encounter Results * Echo Doppler (12/06/2019) Anatomical Region Laterality Modality Chest N/A Ultrasound us Scanning Provider External CV ECHO ORDERABLES Fi nal Result documented in this encounter Visit Diagnoses Not on filedocumented in this encounter Additional Health Concerns Assessment Noted Time PHQ-9 Depression Total Score: 8 04/10/20 19 8:00 AM EDT documented as of this encounter Care Teams Leakage Tester Relationship Specialty Start Date End Date Cindy Perez MD [address] [place] [address] PCP - General Internal Medicine 03/07/25 documented as of this encounter
--- OUTSIDE RECORDS SUMMARY | 2025-05-21 15:19 | XMS_ITS | Encounter Summary ---
Author Organization [employer] Address [id number] [address] [place] [address] Care Team Providers Care Repatcher Name Role Phone Cindy Perez MD Primary Care Provider [phone] Encounter Details Date Type Department Care Team (Late st Contact Info) Description 04/16/2021 Orders Only [facility] [address] [place] [address] External, Scanning Provider Social History [...] Description 06/23/2025 1:30 PM EST Appointment [facility] - Mammography/DEXA Imaging [address] [place] [phone] documented as of this encounter Procedures Procedure Name Priority Date/Time Associated Diagnosis Comments ECHO COMPLETE WO CONTRAST Routine 01/26/2021 documented in this encounter Results * Echo complete W/O contrast (01/26/2021) Anatomical Region Laterality Modality Chest N/A Ultrasound us Scanning Provider External CV ECHO ORDERABLES Fi nal Result documented in this encounter Visit Diagnoses Not on filedocumented in this encounter Additional Health Concerns Assessment Noted Time PHQ-9 Depression Total Score: 8 04/10/20 19 8:00 AM EDT documented as of this encounter Care Teams Repatcher Relationship Specialty Start Date End Date Cindy Perez MD [address] [place] [address] PCP - General Internal Medicine 03/07/25 documented as of this encounter
--- OUTSIDE RECORDS SUMMARY | 2025-05-21 15:19 | XMS_ITS | Encounter Summary ---
Author Organization [employer] Address [id number] [address] [place] [address] Care Team Providers Care Case Filler Name Role Phone Cindy Perez MD Primary Care Provider [phone] Encounter Details Date Type Department Care Team (Late st Contact Info) Description 04/02/2021 Orders Only [facility] [address] [place] [address] External, Scanning Provider Social History [...] EST Appointment [facility] - Mammography/DEXA Imaging [address] [place] [address] documented as of this encounter Procedures Procedure Name Priority Date/Time Associated Diagnosis Comments MULTIPLE LABS Routine 06/09/2017 documented in this encounter Results * Multiple labs (06/09/2017) us Scanning Provider External [facility] Final Result MANUALLY TRANSCRIBED RESULTS documented in this encounter Visit Diagnoses Not on filedocumented in this encounter Additional Health Concerns Assessment Noted Time PHQ-9 Depression Total Score: 8 04/10/20 19 8:00 AM EDT documented as of this encounter Care Teams Case Filler Relationship Specialty Start Date End Date Cindy Perez MD [address] [place] [place] [address] PCP - General Internal Medicine 03/07/25 documented as of this encounter
--- OUTSIDE RECORDS SUMMARY | 2025-05-21 15:20 | XMS_ITS | Clinical Summary ---
Author Organization [facility] Address [address] [place] [address] Care Team Providers Care Steel Sampler Name Role Phone Unavailable Primary Care Provider Unavailabl e Allergies Active Allergy Reactions Criticality Noted Date Comments Gadolinium-Containin g Contrast Media Angioedema,Hives,Othe r Medium 04/03/2025 Hives, nasal congestion Medications multivitamin tablet Take 1 tablet by mouth in the morning. 05/02/2023 Active ergocalciferol (Vitamin D-2) 1.25 MG (40678 Units) capsule Take 50,000 Units by mouth 1 (one) time per week. Active Spiriva Respimat 2.5 mcg/actuation inhaler INHALE 2 PUFFS BY MOUTH ONCE DAILY Active cholecalciferol (Vitamin D-3) 50 MCG (2000 UT) tablet 2,000 Units in the morning. 04/18/2025 Active diphenhydrAMINE 25 mg tablet Take 2 tablets by mouth every 6 (six) hours. 04/03/2025 Active aspirin 81 mg EC tablet Take 81 mg by mouth in the morning. Active ondansetron (Zofran) 8 mg tablet Take 8 mg by mouth every 8 (eight) hours if needed. 05/19/2025 Active prochlorperazin e (Compazine) 10 mg tablet Take 10 mg by mouth every 6 (six) hours if needed. 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 Drug abuse 04/24/2024 Overview (04/24/2024): Marijuana 2014 ?still using / benzo 2012/ crack cocaine 2002 / crylstal meth 1995 / prior admits and out pt programs History of abnormal cervical Pap smear Overview (04/24/2024): type unknown by pt / last pap in 2014 negative for cancer and hpv Mental health disorder 04/24/2024 Overview (04/24/2024): Major depression, Bipolar, OCD, Social phobia, PTSD, OCD Dissociated identity disparity Anxiety, Suicide attempt Paresthesias in left hand 04/24/2024 Overview (04/24/2024): bear bottle laceration Primary hypertension 06/16/2023 Family history of uterine cancer 06/07/2023 At high risk for breast cancer 05/23/2022 Overview (04/24/2024): Based on the Tyrer-Cuzick model, this patient's lifetime risk for breast cancer is 23.57%. The [place] [employer] considers women with a 20% or greater lifetime risk for developing breast cancer is high risk . Women at risk for breast cancer may benefit from additional screening with breast MRI. Consider supplemental screening with annual breast MRI alternating every 6 months with annual screening mammogram. Dense breast tissue on mammogram 05/19/2021 Overview (04/24/2024): Based on the Tyrer-Cuzick model, this patient's lifetime risk for breast cancer is 23.57%. The [place] [employer] considers women with a 20% or greater lifetime risk for developing breast cancer is high risk . Women at risk for breast cancer may benefit from additional screening with breast MRI. Consider supplemental screening with annual breast MRI alternating every 6 months with annual screening mammogram. History of smoking 25-50 pack years 05/19/2021 Other chest pain 04/15/2021 Chronic obstructive pulmonary disease 12/21/2016 Medical cannabis use 12/21/2016 Chronic coronary artery disease 05/20/2014 Hyperlipidemia 05/20/2014 Prolonged PTT 07/24/2013 Ankle instability 04/02/2012 Humerus shaft fracture 04/02/2012 Tibia/fibula fracture, shaft 04/02/2012 Fracture of cervical vertebra, C6 06/10/2011 Fracture of transverse process of lumbar vertebr a 06/10/2011 Encounters Date Type Department Care Team Description 05/21/2025 2:00 PM EDT Office Visit [facility] [address] [place] [address] Jevon Haywood MD Coronary artery disease involving [place] coronary artery of [place] heart with angina pectoris (Primary Dx); Other chest pain; Tobacco abuse; Bronchogenic cancer of right lung ([facility]/HCC) 04/30/2025 1:20 PM EDT Office Visit [facility] [address] [place] [address] Jevon Haywood MD Precordial pain (Primary Dx); Primary hypertension; Shortness of breath; Precordial chest pain from Last 3 Months Family History Medical History Relation Name Comments No Known Problems Father No Known Problems Mother Relation Name Status Comments Father Mother Alive Social History Tobacco Use Types Packs/Day [...] Heterosexual or Straight 03/2025 4:12 PM EDT Last Filed Vital Signs Vital Sign Reading Time Taken Comments Blood Pressure 148/82 05/21/2025 2:05 PM EDT Pulse 92 05/21/2025 2:05 PM EDT Temperature - - Respiratory Rate 16 03/22/2024 1:02 PM EDT Oxygen Saturation 97% 05/21/2025 2:05 PM EDT Inhaled Oxygen Concentration - - Weight 57.6 kg (127 lb) 05/21/2025 2:05 PM EDT Height 170.2 cm (5' 7 ) 05/21/2025 2:05 PM EDT Body Mass Index 19.89 05/21/2025 2:05 PM EDT Plan of Treatment Health Maintenance Due Date Last Done Comments CT Colonography 1970 Colonoscopy 1970 Colorectal Cancer Screening 1970 FIT-DNA 1970 FIT 1970 FOBT 1970 Sigmoidoscopy 1970 Depression Screening 1982 Hepatitis B Vaccines (1 of 3 - 19+ 3-dose series) 1989 Pap Smear 1991 Adult Tetanus 1992 Cervical Cancer Screening 2000 HPV/Cotest 2000 Pneumococcal Vaccine: Pediat rics (0 to 5 Years) and At-Risk Patients (6 to 64 Years) (2 of 2 - PCV) 06/11/2012 06/11/2011 Zoster Vaccines (1 of 2) 2020 COVID-19 Vaccine (1 - 2023-2 5 season) 2025 Influenza Vaccine (#1) 2025 06/11/2011 Mammogram 06/19/2026 06/19/2024 HIB Vaccines Aged Out No longer eligi ble based on patient's age to complete this topic HPV Vaccines Aged Out No longer eligi ble based on patient's age to complete this topic IPV Vaccines Aged Out No longer eligi ble based on patient's age to complete this topic Meningococcal B Vaccine Aged Out No l onger eligible based on patient's age to complete this topic Meningococcal Vaccine Aged Out No irasema micki eligible based on patient's age to complete this topic Rotavirus Vaccines Aged Out No longer eligible based on patient's age to complete this topic Insurance [facility] MEDICAID
--- OUTSIDE RECORDS SUMMARY | 2025-05-21 15:20 | XMS_ITS | Clinical Summary ---
Author Organization [facility] Address [address] [place] [address] Care Team Providers Care Separator Inserter Name Role Phone Unavailable Primary Care Provider Unavailabl e Social History Tobacco Use Types Packs/Day Years Used Date Smoking Tobacco: Never Assessed Comments Unknown Sex and Gender Information Value Date Recorded Sex Assigned at Not on file Legal Sex Female 2:46 PM EST Gender Identity Not on file Sexual Orientation Not on file Plan of Treatment Not on file
--- OUTSIDE RECORDS SUMMARY | 2025-05-21 15:20 | XMS_ITS | Clinical Summary ---
Author Organization [facility] Address [address] [place] [address] Care Team Providers Care Platinum And Palladium Kettle Tender Name Role Phone Cindy Perez MD Primary Care Provider [phone] Danika Saenz Unavailable Unavailable Allergies Active Allergy Reactions Criticality Noted Date Comments Gadolinium-Containing Contrast Media Angioedema 04/28/2025 Medications cholecalciferol (VITAMIN D3) 50 mcg (2,000 unit) tablet TAKE 1 TABLET BY MOUTH ONCE DAILY IN THE MORNING Active multivitamin tablet TAKE 1 TABLET BY MOUTH ONCE DAILY IN THE MORNING Active prochlorperazine (COMPAZINE) 10 mg tablet Take 1 tablet by mouth every 6 hours as needed. 100 tablet 2 05/19/20 25 Active ondansetron (ZOFRAN) 8 mg tablet Take 1 tablet by mouth every 8 hours as needed for nausea/vomitin g. 90 tablet 2 05/19/20 25 Active CITALOPRAM HYDROBROMIDE (CELEXA ORAL) Take 30 mg by mouth daily before breakfast. 025 Discontin ued(Disco ntinued by Patient) clonazePAM (KLONOPIN) 1 mg tablet Take 1 mg by mouth three times daily. 025 Discontin ued(Disco ntinued by Patient) ipratropium-albute rol 20-100 mcg/Puff Aero inhalerIndications :Prolonged PTT (partial thromboplastin time),Myocardial infarct, old,Pulmonary artery thrombosis (HCC) Inhale 1 Puff as instructed four times daily. 025 Discontin ued(Disco ntinued by Patient) atorvastatin 80 mg tabletIndications: Prolonged PTT (partial thromboplastin time),Myocardial infarct, old,Pulmonary artery thrombosis (HCC) Take 80 mg by mouth once daily. 025 Discontin ued(Other ) Aspirin 81 mg TabIndications:Pro longed PTT (partial thromboplastin time),Myocardial infarct, old,Pulmonary artery thrombosis (HCC) Take 81 mg by mouth once daily. 025 Discontin ued(Disco ntinued by Patient) ranitidine (ZANTAC) 150 mg tabletIndications: Prolonged PTT (partial thromboplastin time),Myocardial infarct, old,Pulmonary artery thrombosis (HCC) Take 150 mg by mouth twice daily. 025 Discontin ued(Disco ntinued by Patient) prasugrel (EFFIENT) 10 mg TabIndications:Pro longed PTT (partial thromboplastin time),Myocardial infarct, old,Pulmonary artery thrombosis (HCC) Take 10 mg by mouth once daily. 025 Discontin ued(Disco ntinued by Patient) lisinopril 5 mg tabletIndications: Prolonged PTT (partial thromboplastin time),Myocardial infarct, old,Pulmonary artery thrombosis (HCC) Take 5 mg by mouth once daily. 025 Discontin ued(Disco ntinued by Patient) QUEtiapine (SEROQUEL) 50 mg tabletIndications: Prolonged PTT (partial thromboplastin time),Myocardial infarct, old,Pulmonary artery thrombosis (HCC) Take 50 mg by mouth twice daily. 025 Discontin ued(Disco ntinued by Patient) metoprolol succinate XL, long acting, (TOPROL XL) 25 mg 24 hr tabletIndications: Prolonged PTT (partial thromboplastin time),Myocardial infarct, old,Pulmonary artery thrombosis (HCC) Take 1 tablet by mouth once daily. 15 tablet 3 04/30/20 13 025 Discontin ued(Disco ntinued by Patient) citalopram (CELEXA) 20 mg tablet Take 1 tablet by mouth once daily. 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 Tibia/fibula fracture, shaft 04/02/2012 Humerus shaft fracture 04/02/2012 Encounters Date Type Department Care Team Description 05/19/2025 Telephone Hematology/Oncology [address] [place] [address] [place] [address] Cindy Morgan, RN Care Coordination (Treatment prep) 05/14/2025 Telephone Radiation Oncology [address] [place] [address] [place] [address] Jose Manuel Lynn MD Patient Update (Cardiac Issues); Future Appointment 05/12/2025 Telephone Hematology/Oncology [address] [place] [address] [place] [address] Danika Saenz LSW 05/09/2025 3:00 PM EDT Office Visit Radiation Oncology [address] [place] [address] [place] [address] Jose Manuel Lynn MD 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) (Primary Dx) 05/09/2025 Telephone Radiation Oncology [address] [place] [address] [place] [address] Alvina Rodriguez, RN Appointment 05/09/2025 Patient Msg [facility] Radiology Procedure [id number] [place] [address] Provider, [facility] You are scheduled for a Mediport, on Tuesday May 13, 2025 05/09/2025 Telephone [facility] Radiology Procedure [id number] [place] [address] Love Stack, executive director sheltered workshop Pre Procedure Instructions 05/08/2025 1:20 PM EDT Visit (SP) Office Hematology/Oncology [address] [place] [address] [place] [address] Luis Bah MD 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) (Primary Dx) 05/08/2025 Orders Only [facility] Radiology Procedure [id number] [place] [address] Brittany Madrigal, ALEKSANDR Pre-procedure lab exam (Primary Dx); 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) 05/08/2025 Orders Only [facility] Radiology Procedure [id number] [place] [address] Brittany Madrigal, ALEKSANDR 05/08/2025 Telephone [facility] Radiology Procedure [id number] [place] [address] Brittany Madrigal, executive director sheltered workshop Pre Procedure Instructions 05/08/2025 Orders Only Hematology/Oncology [address] [place] [address] Luis Bah MD 05/08/2025 Orders Only Hematology/Oncology [address] [place] [address] [place] [address] Mildred Ernst, [facility] 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) (Primary Dx) 05/08/2025 Telephone Hematology/Oncology [address] [place] [address] Luis Bah MD 05/08/2025 Telephone Cancer [facility] [address] [place] [address] Luis Bah MD Patient Question 05/08/2025 Telephone [facility] [address] [place] [address] Luis Bah MD Appointment 05/08/2025 Telephone [facility] [address] [place] [address] Luis Bah MD Port Placement 05/08/2025 Travel 05/07/2025 Telephone [facility] [address] [place] [address] Luis Bah MD 05/01/2025 Telephone Hematology/Oncology [address] [place] [address] [place] [address] Danika Saenz LSW 04/28/2025 3:00 PM EDT Visit (SP) Office Hematology/Oncology [address] [place] [address] [place] [address] Luis Bah MD 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) (Primary Dx) 04/28/2025 Social Work Hematology/Oncology [address] [place] [address] Dankia Saenz LSW 04/28/2025 Telephone Cancer Appts [address] [place] [address] Luis Bah MD Referral Request; Consult 04/28/2025 Travel from Last 3 Months Family History Medical History Relation Comments Lung Cancer Maternal Grandfather Ovarian cancer Maternal Grandmother Ovarian cancer Mother Relation Status Comments Maternal Grandfather Maternal Grandmother Mother Social History Tobacco Use Types Packs/Day Years [...] is lower risk 6 04/28/2025 Data from: https://www.neighborhoodatlas.medicine.[facility].edu/. Last address used for calculation [address] [...] oz) 05/09/2025 3:16 P M EDT Height 170.2 cm (5' 7 ) 04/30/2013 1:45 PM EDT Body Mass Index - - Plan of Treatment Upcoming Encounters Date Type Department Care Team (Late st Contact Info) Description 05/23/2025 12:30 PM EDT Office Visit PULMONARY [address] [place] [address] [place] [address] LW* Malignant neoplasm of right lung, unspecified part of lung (HCC) [C34.91] 05/23/2025 1:00 PM EDT Procedure PULMONARY [address] [place] [address] LW* Malignant neoplasm of right lung, unspecified part of lung (HCC) [C34.91] Health Maintenance Due Date Last Done Comments Covid-19 Vaccine (#1) 1975 Anxiety Screening 1988 Depression Screening 1988 DTaP,Tdap,Td Vaccine (1 - Tdap) 1989 Hepatitis B Vaccine (1 of 3 - 19+ 3-dose series) 1989 Shingrix Vaccine (1 of 2) 1989 Cervical Cancer Screening 1991 Pneumococcal Vaccine: 50+ (2 of 2 - PCV) 06/11/2012 06/11/2011 CT Colonography 2015 Cologuard (FIT-DNA) 2015 Colonoscopy 2015 Colorectal Cancer Screening 2015 Fecal Occult Blood 2015 Sigmoidoscopy 2015 Lipid Screening 04/12/2024 04/12/2019, 09/18/2018 Influenza Vaccine (#1) 2025 06/11/2011 Mammogram Screening 06/19/2025 06/19/2024, 06/19/2024, 06/16/2023, Additional history exists Diabetes Screening 03/06/2028 03/06/2025, 0 02/24/2025, 06/12/2024, Additional history exists HIV Screening Completed 04/23/2013 Hepatitis C Screening Completed 09/18/2018, 013 Procedures Procedure Name Priority Date/Time Associated Diagnosis Comments EXTERNAL CARDIOLOGY 05/15/2025 1 2:[address] OUTSIDE CD DICOM IMPORT 05/02/2025 EXTERNAL CARDIOLOGY 05/01/2025 3 :28 PM EDT MRI OUTSIDE CD DICOM IMPORT 04/03/2025 CT OUTSIDE CD DICOM IMPORT 02/24/2025 HIV 1/2 COMBO WITH REFLEX TO DIFFERENTIATION Routine 04/23/2013 4:15 PM EDT Prolonged PTT (partial thromboplastin time) Myocardial infarct, old Pulmonary artery thrombosis HEP REMOTE PANEL BL Routine 04/23/2013 4 :15 PM EDT Prolonged PTT (partial thromboplastin time) Myocardial infarct, old Pulmonary artery thrombosis from Last 3 Months or Most Recently Relevant to Health Maintenance Results * EXTERNAL CARDIOLOGY (05/15/2025 12:04 PM EDT) External Provider PA-C CARDIOLOGY Final Res ult * PT-PET CT SKULL TO THIGH IMPORT (05/02/2025) Anatomical Region Laterality Modality Other 05/02/2025 Narrative 05/08/2025 5:50 AM EDT Images were obtained outside of [facility] Procedure Note Provider, [facility] - 05/08/2025 Images were obtained outside of [facility]c Provider RADIOLOGY Final Result * EXTERNAL CARDIOLOGY (05/01/2025 3:28 PM EDT) External Provider PA-C CARDIOLOGY Final Res ult * MR-MR BRAIN W WO CONT IMPORT (04/03/2025) Anatomical Region Laterality Modality Other 04/03/2025 Narrative 04/29/2025 4:50 AM EDT Images were obtained outside of [facility] Procedure Note Provider, [facility] - 04/29/2025 Images were obtained outside of [facility]c Provider MRI Final Result * CT-CT CHEST W CONT IMPORT (02/24/2025) Anatomical Region Laterality Modality Other 02/24/2025 Narrative 04/28/2025 2:37 PM EDT Images were obtained outside of [facility] Procedure Note Provider, [facility] [place] - 04/28/2025 Images were obtained outside of [facility]c Provider RADIOLOGY Final Result * HIV AB 1&2 SCREEN (04/23/2013 4:15 PM EDT) HIV 1 & 2 Ab (EIA) Non Reactive NR [facility] Comment: If results are indeterminate or otherwise inconsistent with an individual's clinical presentation or risk profile for HIV infection a repeat specimen is requested. A repeat specimen is also recommended for any individual identified positive for the first time. (NOTE) HIV Information: [place] Rev. Code 3701.243(E): This information has been disclosed to you from confidential records protected from disclosure by state law. You shall make no further disclosure of this information without the specific, written, and informed release of the individual to whom it pertains, or as otherwise permitted by state law. A general authorization for the release of medical or other information is not sufficient for the purpose of the release of HIV test results or diagnoses. Blood specimen (specimen) BLOOD SPECIMEN / Unknown 04/23/2013 4:15 PM EDT 04/23/2013 4:17 PM EDT Result [facility] Arslan Gipson MD LABORATORY Final Result Performing Organization Address City/State/[facility] Co de Phone Number [facility] [address] [facility] [place] [address] * HEP REMOTE PANEL BL (04/23/2013 4:15 PM EDT) Hep B Core Ab, Total Negative NEGAT [facility] Hep C Antibody IA Negative NEGAT [facility] HBsAg Negative NEGAT [facility] Hep B Surface Ab, Qual Negative NEGAT [facility] Comment:No evidence of antib odies to Hepatitis B surface antigen. Blood specimen (specimen) BLOOD SPECIMEN / Unknown 04/23/2013 4:15 PM EDT 04/23/2013 4:17 PM EDT Arslan Gipson MD LABORATORY Final Result [facility] [address] [place] [address] from Last 3 Months or Most Recently Relevant to Health Maintenance Insurance [facility] MEDICAID Care Teams Platinum And Palladium Kettle Tender Relationship Specialty Start Date End Date Cindy Perez MD [address] [place], [place] [id number] PCP - General Internal Medicine 04/23/25 Danika Saenz LSW Automatic Folder Seamer 04/28/25
--- OUTSIDE RECORDS SUMMARY | 2025-05-21 15:21 | XMS_ITS | Encounter Summary ---
Author Organization [facility] Address [address] [place] [address] Care Team Providers Care Production Generalist Name Role Phone Cindy Perez MD Primary Care Provider [phone] Danika Saenz Unavailable Unavailable Source Comments In the event this information is protected by the Federal Confidentiality of Alcohol and Drug AbusePatient Records regulations: The Federal rules restrict any use of the information to criminally investigate or prosecute any alcohol or drug abuse patient.[facility] Reason for Visit * Reason Comments Appointment Encounter Details Date Type Department Care Team ([facility] Contact Info) Description 05/08/2025 Telephone Cancer Appts [address] [place] [address] Luis Bah MD [address] [place] [address] [place] [address] Appointment Social History Tobacco Use Types Packs/Day Years [...] is lower risk 6 04/28/2025 Data from: https://www.neighborhoodatlas.medicine.[facility]/. Last address used for calculation [address] 04/28/2025 Comments No Sex and Gender Information Value Date Recorded Sex Assigned at Not on file Legal Sex Female 9:50 AM EST Gender Identity Not on file Sexual Orientation Not on file documented as of this encounter Functional Status * AUDIT-C Score [...] Lambert RN documented as of this encounter Miscellaneous Notes * Telephone Encounter - Guadalupe Campuzano - 05/08/2025 2:19 PM EDT Images from the original note were not included. Pascale: Patient to be concurrent. If we can schedule her education w/ Cindy at her Simulation appointment. documented in this encounter Plan of Treatment Upcoming Encounters Date Type Department Care Team (Late st Contact Info) Description 05/23/2025 12:30 PM EDT Office Visit PULMONARY [address] [place] [address] LW* Malignant neoplasm of right lung, unspecified part of lung (HCC) [C34.91] 05/23/2025 1:00 PM EDT Procedure PULMONARY [address] [place] [address] LW* Malignant neoplasm of right lung, unspecified part of lung (HCC) [C34.91] documented as of this encounter Visit Diagnoses Not on filedocumented in this encounter Care Teams Production Generalist Relationship Specialty Start Date End Date Cindy Perez MD [address] [place] [address] PCP - General Internal Medicine 04/23/25 Danika Saenz LSW Warehouse Sorter 04/28/25 documented as of this encounter
--- OUTSIDE RECORDS SUMMARY | 2025-05-21 15:21 | XMS_ITS | Encounter Summary ---
Author Organization [facility] Address [address] [place] [address] Care Team Providers Care Environmental Director Name Role Phone Cindy Perez MD Primary Care Provider [phone] Danika Saenz Unavailable Unavailable Source Comments In the event this information is protected by the Federal Confidentiality of Alcohol and Drug AbusePatient Records regulations: The Federal rules restrict any use of the information to criminally investigate or prosecute any alcohol or drug abuse patient.[facility] Reason for Visit * Reason Comments Patient Question Encounter Details Date Type Department Care Team ([facility] Contact Info) Description 05/08/2025 Telephone Cancer Appts [address] [place] [address] Luis Bah MD [address] [place] [address] [place] [address] Patient Question Social History Tobacco Use Types Packs/Day Years [...] is lower risk 6 04/28/2025 Data from: https://www.neighborhoodatlas.[facility].[place]/. Last address used for calculation [address] [...] encounter Miscellaneous Notes * Telephone Encounter - Luis Bah MD - 05/15/2025 4:[address] Lynn- Do you think she needs to see surgeon ? As we are doing definitive chemoRT. She is already overwhelmed with a lot of information and I do not want to confuse her. She also has transportation issues to drive to [place]. She is a very anxious person too. I will hold off on surgeon appointment for now. Thank you. 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 I recommended concurrent chemort followed by maintenance Durvalumab. Do you agree that she is not a surgical candidate given the metastases to subcarinal lymph nodes? Thank you. * Telephone Encounter - Guadalupe Campuzano - 05/08/2025 2:21 PM EDT Patient is scheduled for her PFT's, ECHO and appointment with Dr. Murray. Patient is asking if these should be cancelled now that plans changed due to her recent PET scan? Guadalupe Campuzano documented in this encounter Plan of Treatment Upcoming Encounters Date Type Department Care Team (Late st Contact Info) Description 05/23/2025 12:30 PM EDT Office Visit PULMONARY [address] [facility] [place] [phone] LW* Malignant neoplasm of right lung, unspecified part of lung (HCC) [C34.91] 05/23/2025 1:00 PM EDT Procedure PULMONARY [address] [place] [address] LW* Malignant neoplasm of right lung, unspecified part of lung (HCC) [C34.91] documented as of this encounter Visit Diagnoses Not on filedocumented in this encounter Care Teams Environmental Director Relationship Specialty Start Date End Date Cindy Perez MD [address] [place] [address] PCP - General Internal Medicine 04/23/25 Danika Saenz LSW Publishing Director 04/28/25 documented as of this encounter
--- OUTSIDE RECORDS SUMMARY | 2025-05-21 15:21 | XMS_ITS | Encounter Summary ---
Author Organization [facility] Address [address] [place] [address] Care Team Providers Care Research Consultant Name Role Phone Cindy Perez MD Primary Care Provider [phone] Danika Saenz Unavailable Unavailable Source Comments In the event this information is protected by the Federal Confidentiality of Alcohol and Drug AbusePatient Records regulations: The Federal rules restrict any use of the information to criminally investigate or prosecute any alcohol or drug abuse patient.[facility] Encounter Details Date Type Department Care Team (Late st Contact Info) Description 05/08/2025 Telephone Hematology/Oncology [address] [place] [address] [place] [address] Luis Bah MD [address] [place] [address] [place] [address] Social History Tobacco Use Types Packs/Day Years [...] is lower risk 6 04/28/2025 Data from: https://www.neighborhoodatlas.medicine.[facility]/. Last address used for [...] Telephone Encounter - Guadalupe Campuzano - 05/08/2025 4:44 PM EDT Waiting to see XRT start date for scheduling. Patient is scheduled for consult tomorrow. Schedule chemo on start day of radiation * Telephone Encounter - Luis Bah MD - 05/08/2025 2:31 PM EDT Please load weekly CarboTaxol in the beacon and schedule it. Thank you documented in this encounter Plan of Treatment Upcoming Encounters Date Type Department Care Team (Late st Contact Info) Description 05/23/2025 12:30 PM EDT Office Visit PULMONARY [address] [place] [phone] LW* Malignant neoplasm of right lung, unspecified part of lung (HCC) [C34.91] 05/23/2025 1:00 PM EDT Procedure PULMONARY [address] [facility] [place] [phone] LW* Malignant neoplasm of right lung, unspecified part of lung (HCC) [C34.91] documented as of this encounter Visit Diagnoses Not on filedocumented in this encounter Care Teams Research Consultant Relationship Specialty Start Date End Date Cindy Perez MD [address] [address] PCP - General Internal Medicine 04/23/25 Danika Saenz LSW Fuel Operator 04/28/25 documented as of this encounter
--- OUTSIDE RECORDS SUMMARY | 2025-05-21 15:21 | XMS_ITS | Encounter Summary ---
Author Organization [facility] Address [address] [place] [address] Care Team Providers Care Steel Plate Caulker Name Role Phone Cindy Perez MD Primary Care Provider [phone] Danika Saenz Unavailable Unavailable Source Comments In the event this information is protected by the Federal Confidentiality of Alcohol and Drug AbusePatient Records regulations: The Federal rules restrict any use of the information to criminally investigate or prosecute any alcohol or drug abuse patient.[facility] Encounter Details Date Type Department Care Team (Latest Contact Info) Description 05/08/2025 Travel Social History Tobacco Use Types Packs/Day [...] Score (1-100), lower number is lower ri 73 04/28/2025 State Score (1-10), lower number is lower risk 6 04/28/2025 Data from: https://www.neighborhoodatlas.medicine.[facility].edu/. Last address used for calculation [address] [...] 12:30 PM EDT Office Visit PULMONARY [address] [facility] [place] [address] LW* Malignant neoplasm of right lung, unspecified part of lung (HCC) [C34.91] 05/23/2025 1:00 PM EDT Procedure PULMONARY [address] [facility] [place] [place] [address] LW* Malignant neoplasm of right lung, unspecified part of lung (HCC) [C34.91] documented as of this encounter Visit Diagnoses Not on filedocumented in this encounter Care Teams Steel Plate Caulker Relationship Specialty Start Date End Date Cindy Perez MD [address] [place] [address] PCP - General Internal Medicine 04/23/25 Danika Saenz LSW Core Stripper 04/28/25 documented as of this encounter
--- OUTSIDE RECORDS SUMMARY | 2025-05-21 15:21 | XMS_ITS | Encounter Summary ---
Author Organization [facility] Address [address] [place] [address] Care Team Providers Care Icebox Man Name Role Phone Cindy Perez MD Primary Care Provider [phone] Danika Saenz Unavailable Unavailable Source Comments In the event this information is protected by the Federal Confidentiality of Alcohol and Drug AbusePatient Records regulations: The Federal rules restrict any use of the information to criminally investigate or prosecute any alcohol or drug abuse patient.[facility] Encounter Details Date Type Department Care Team (Late st Contact Info) Description 05/08/2025 Orders Only Hematology/Oncology [address] [place] [address] [place] [address] [address] [place] [address] Malignant neoplasm of hilus of right lung [...] is lower risk 6 04/28/2025 Data from: https://www.neighborhoodatlas.[facility]/. Last address used for calculation [...] 12:30 PM EDT Office Visit PULMONARY [address] [place] [phone] LW* Malignant neoplasm of right lung, unspecified part of lung (HCC) [C34.91] 05/23/2025 1:00 PM EDT Procedure PULMONARY [address] [place] [address] LW* Malignant neoplasm of right lung, unspecified part of lung (HCC) [C34.91] documented as of this encounter Visit Diagnoses Diagnosis 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)- Primary documented in this encounter Care Teams Icebox Man Relationship Specialty Start Date End Date Cindy ePrez MD [address] [place] [address] PCP - General Internal Medicine 04/23/25 Danika Saenz LSW Tie Sawyer 04/28/25 documented as of this encounter
--- OUTSIDE RECORDS SUMMARY | 2025-05-21 15:21 | XMS_ITS | Encounter Summary ---
Author Organization [facility] Address [address] [place] [address] Care Team Providers Care Fret Saw Operator Name Role Phone Cindy Perez MD Primary Care Provider Danika Saenz Unavailable Unavailable Source Comments In the event this information is protected by the Federal Confidentiality of Alcohol and Drug AbusePatient Records regulations: The Federal rules restrict any use of the information to criminally investigate or prosecute any alcohol or drug abuse patient.[facility] Encounter Details Date Type Department Care Team (Late st Contact Info) Description 05/08/2025 Orders Only Hematology/Oncology [address] [place] [address] [place] [address] Luis Bah MD [address] [place] [address] [place] [address] Social History Tobacco Use Types Packs/Day Years [...] lower risk 6 04/28/2025 Data from: https://www.neighborhoodatlas.medicine.[facility].edu/. Last address used for calculation [address] [...] 12:30 PM EDT Office Visit PULMONARY [address] [facility] [place] [address] LW* Malignant neoplasm of right lung, unspecified part of lung (HCC) [C34.91] 05/23/2025 1:00 PM EDT Procedure PULMONARY [address] [facility] [place] [address] LW* Malignant neoplasm of right lung, unspecified part of lung (HCC) [C34.91] documented as of this encounter Visit Diagnoses Not on filedocumented in this encounter Care Teams Fret Saw Operator Relationship Specialty Start Date End Date Cindy Perez MD [address] [place] [address] PCP - General Internal Medicine 04/23/25 Danika Saenz LSW Electro Winning Operator 04/28/25 documented as of this encounter
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
--- OUTSIDE RECORDS SUMMARY | 2025-05-21 15:21 | XMS_ITS | Encounter Summary ---
Author Organization [facility] Address [address] [place] [address] Care Team Providers Care Fire Control System Installer Name Role Phone Cindy Perez MD Primary Care Provider [phone] Danika Saenz Unavailable Unavailable Source Comments In the event this information is protected by the Federal Confidentiality of Alcohol and Drug AbusePatient Records regulations: The Federal rules restrict any use of the information to criminally investigate or prosecute any alcohol or drug abuse patient.[facility] Encounter Details Date Type Department Care Team (Late st Contact Info) Description 05/07/2025 Telephone [address] Appts [address] [place] [address] Luis Bah MD [address] [place] [address] [place] [address] Social History Tobacco Use Types Packs/Day Years Used Date Smoking Tobacco: Every Day Smokeless Tobacco: Never Alcohol Use Standard Drinks/Week Comments Yes 0 (1 standard drink = 0.6 oz pur e alcohol) Area Deprivation Index Answer Date Joe rded National Score (1-100), lower number is lower ri sk 73 04/28/2025 State Score (1-10), lower number is lower risk 6 04/28/2025 Data from: https://www.[facility] hospitalatlas.[facility]/. Last address used for calculation [address] 04/28/2025 Comments No Sex and Gender Information Value Date Recorded Sex Assigned at Not on file Legal Sex Female 9:50 AM EST Gender Identity Not on file Sexual Orientation Not on file documented as of this encounter Miscellaneous Notes * Telephone Encounter - Maryanne Bain RN - 05/07/2025 1:05 PM EDT Report updated in careeverywhere Maryanne Bain RN * Telephone Encounter - Balbina Islas - 05/07/2025 12:55 PM EDT Called and spoke with patient. Patient is scheduled to see Dr Arias tomorrow 05/08 @ 1:20. Balbina Muhammad * Telephone Encounter - Luis Bah MD - 05/07/2025 12:41 PM EDT Mariela- Please obtain the pet scan report. F/u with me on 05/12/25. Thank you. * Telephone Encounter - Balbina Islas - 05/07/2025 12:34 PM EDT Sean Maldonado is calling today regarding: She just spoke with her lung doctor and he informed her, that her Pet Scan results show multiple areas of cancer. Patient is very upset and wants to know if Dr Arias has seen the results and has many other questions. Patient has been identified by name and birthdate. Person calling: self Please return the call at [phone]. Balbina Muhammad documented in this encounter Plan of Treatment Upcoming Encounters Date Type Department Care Team (Late st Contact Info) Description 05/23/2025 12:30 PM EDT Office Visit PULMONARY [address] [place] [phone] LW* Malignant neoplasm of right lung, unspecified part of lung (HCC) [C34.91] 05/23/2025 1:00 PM EDT Procedure PULMONARY [address] [place] [address] LW* Malignant neoplasm of right lung, unspecified part of lung (HCC) [C34.91] documented as of this encounter Visit Diagnoses Not on filedocumented in this encounter Care Teams Fire Control System Installer Relationship Specialty Start Date End Date Cindy Perez MD [address] [address] PCP - General Internal Medicine 04/23/25 Danika Saenz LSW Railway Engineer 04/28/25 documented as of this encounter
--- OUTSIDE RECORDS SUMMARY | 2025-05-21 15:21 | XMS_ITS | Encounter Summary ---
Author Organization [facility] Address [address] [place] [address] Care Team Providers Care Ballast Inspector Name Role Phone Cindy Perez MD Primary Care Provider [phone] Danika Saenz Unavailable Unavailable Source Comments In the event this information is protected by the Federal Confidentiality of Alcohol and Drug AbusePatient Records regulations: The Federal rules restrict any use of the information to criminally investigate or prosecute any alcohol or drug abuse patient.[facility] Reason for Visit * Reason Comments Port Placement Encounter Details Date Type Department Care Team ([facility] Contact Info) Description 05/08/2025 Telephone Cancer Appts [address] [place] [address] Luis Bah MD [address] [place] [address] [place] [address] Port Placement Social History Tobacco Use Types Packs/Day Years [...] is lower risk 6 04/28/2025 Data from: https://www.neighborhoodatlas.medicine.[facility]/. Last address used for calculation [address] 04/28/2025 Comments No Sex and Gender Information Value Date Recorded Sex Assigned at Not on file Legal Sex Female 9:50 AM EST Gender Identity Not on file Sexual Orientation Not on file documented as of this encounter Miscellaneous Notes * Telephone Encounter - Guadalupe Campuzano - 05/08/2025 2:14 PM EDT Patient to be referred for port placement in [place], [facility] available. Thank you! Guadalupe Campuzano documented in this encounter Plan of Treatment Upcoming Encounters Date Type Department Care Team (Late st Contact Info) Description 05/23/2025 12:30 PM EDT Office Visit PULMONARY [address] [facility] [place] [phone] LW* Malignant neoplasm of right lung, unspecified part of lung (HCC) [C34.91] 05/23/2025 1:00 PM EDT Procedure PULMONARY [address] [facility] [place] [address] LW* Malignant neoplasm of right lung, unspecified part of lung (HCC) [C34.91] documented as of this encounter Visit Diagnoses Not on filedocumented in this encounter Care Teams Ballast Inspector Relationship Specialty Start Date End Date Cindy Perez MD [address] [place] [address] PCP - General Internal Medicine 04/23/25 Danika Saenz LSW Bread Distributor 04/28/25 documented as of this encounter
--- OUTSIDE RECORDS SUMMARY | 2025-05-21 15:21 | XMS_ITS | Encounter Summary ---
Author Organization [facility] Address [address] [address] Care Team Providers Care Statistics Intern Name Role Phone Unavailable Primary Care Provider Unavailabl e Encounter Details Date Type Department Care Team (Latest Contact Info) Description 06/11/2011 Anesthesia Historic Record [facility] Anesthesiology [address] [id number] 2 scans: GENERAL Social History Tobacco Use Types Packs/Day Years Used Date Smoking Tobacco: Never Assessed Comments Unknown Sex and Gender Information Value Date Recorded Sex Assigned at Not on file Legal Sex Female 6:31 AM EST Gender Identity Not on file Sexual Orientation Not on file documented as of this encounter Functional Status * Gait/Transfer impairment? Answer Date of Assessment Author Yes 06/11/2011 3:12 AM Carlos Chen * ADL impairment? Answer Date of Assessment Author Yes 06/11/2011 3:12 AM Carlos Chen documented as of this encounter Plan of Treatment Not on file documented as of this encounter Visit Diagnoses Not on filedocumented in this encounter
--- OUTSIDE RECORDS SUMMARY | 2025-05-21 15:22 | XMS_ITS | Encounter Summary ---
Author Organization [facility] Address [address] [place] [address] Care Team Providers Care Park Maintainer Name Role Phone Cindy Perez MD Primary Care Provider [phone] Danika Saenz Unavailable Unavailable Source Comments In the event this information is protected by the Federal Confidentiality of Alcohol and Drug AbusePatient Records regulations: The Federal rules restrict any use of the information to criminally investigate or prosecute any alcohol or drug abuse patient.[facility] Reason for Visit * Reason Comments Radiology Pre Procedure Instructions Encounter Details Date Type Department Care Team ([facility] Contact Info) Description 05/09/2025 Telephone [facility] Radiology Procedure [address] [place] [address] Love Stack RN Radiology Pre Procedure Instructions Social History Tobacco Use Types Packs/Day Years [...] is lower risk 6 04/28/2025 Data from: https://www.neighborhoodatlas.[facility]/. Last address used for calculation [address] 04/28/2025 Comments No Sex and Gender Information Value Date Recorded Sex Assigned at Not on file Legal Sex Female 9:50 AM EST Gender Identity Not on file Sexual Orientation Not on file documented as of this encounter Miscellaneous Notes * Telephone Encounter - Love Stack RN - 05/09/2025 10:10 AM EDT RADIOLOGY PROCEDURE INSTRUCTIONS: You are scheduled for a Mediport, on Tuesday May 13, 2025 You are to arrive at 12:00 pm and check in at [facility]: Radiology Outpatient Desk [facility]. You can expect to be here for 3-4 hours. Address: [place] [address] Diet: Do not eat any solid food [...] if they are not done at a [facility] facility. Php Mysql Developer/Transportation: How will you be arriving for your [...] or reschedule your procedure, please call our design engineer products: Page Damon and Dahlia [phone]; 8am - 4pm M-F If you have any additional questions please call: [facility] Radiology nurses desk at [phone] 8am - 4pm M-F. documented in this encounter Plan of Treatment Upcoming Encounters Date Type Department Care Team (Late st Contact Info) Description 05/23/2025 12:30 PM EDT Office Visit PULMONARY [address] [facility] [place] [address] LW* Malignant neoplasm of right lung, unspecified part of lung (HCC) [C34.91] 05/23/2025 1:00 PM EDT Procedure PULMONARY [address] [facility] [place] [address] LW* Malignant neoplasm of right lung, unspecified part of lung (HCC) [C34.91] documented as of this encounter Visit Diagnoses Not on filedocumented in this encounter Care Teams Park Maintainer Relationship Specialty Start Date End Date Cindy Perez MD [address] [place] [address] PCP - General Internal Medicine 04/23/25 Danika Saenz LSW Electrotype Molder 04/28/25 documented as of this encounter
--- OUTSIDE RECORDS SUMMARY | 2025-05-21 15:22 | XMS_ITS | Encounter Summary ---
Author Organization [facility] Address [address] [place] [address] Care Team Providers Care Rehab Director Occupational Therapist Name Role Phone Cindy Perez MD Primary Care Provider [phone] Danika Saenz Unavailable Unavailable Source Comments In the event this information is protected by the Federal Confidentiality of Alcohol and Drug AbusePatient Records regulations: The Federal rules restrict any use of the information to criminally investigate or prosecute any alcohol or drug abuse patient.[facility] Encounter Details Date Type Department Care Team (Late st Contact Info) Description 05/09/2025 Patient [facility] Radiology Procedure [address] [place] [address] Provider, Mariely You are scheduled for a Mediport, on Tuesday May 13, 2025 Social History Tobacco Use Types Packs/Day Years [...] is lower risk 6 04/28/2025 Data from: https://www.neighborhoodatlas.medicine.[facility]/. Last address used for calculation [...] Lambert RN documented as of this encounter Plan of Treatment Upcoming Encounters Date Type Department Care Team (Late st Contact Info) Description 05/23/2025 12:30 PM EDT Office Visit PULMONARY [address] [place] [address] LW* Malignant neoplasm of right lung, unspecified part of lung (HCC) [C34.91] 05/23/2025 1:00 PM EDT Procedure PULMONARY [address] [facility] [place] [address] LW* Malignant neoplasm of right lung, unspecified part of lung (HCC) [C34.91] documented as of this encounter Visit Diagnoses Not on filedocumented in this encounter Care Teams Rehab Director Occupational Therapist Relationship Specialty Start Date End Date Cindy Perez MD [address] [place] [address] PCP - General Internal Medicine 04/23/25 Danika Saenz LSW Driver License Agent 04/28/25 documented as of this encounter
--- OUTSIDE RECORDS SUMMARY | 2025-05-21 15:22 | XMS_ITS | Encounter Summary ---
Author Organization [facility] Address [address] [place] [address] Care Team Providers Care Paper Bag Making Machinist Name Role Phone Cindy Perez MD Primary Care Provider [phone] Danika Saenz Unavailable Unavailable Source Comments In the event this information is protected by the Federal Confidentiality of Alcohol and Drug AbusePatient Records regulations: The Federal rules restrict any use of the information to criminally investigate or prosecute any alcohol or drug abuse patient.[facility] Reason for Visit * Reason Comments Patient Update Cardiac Issues Future Appointment Encounter Details Date Type Department Care Team ([facility] st Contact Info) Description 05/14/2025 Telephone Radiation Oncology [address] [facility] [address] Jose Manuel Alfaro MD [address] [place] [address] [place] [address] Patient Update (Cardiac Issues); Future Appointment Social History Tobacco Use Types Packs/Day [...] risk 6 04/28/2025 Data from: https://www.neighborhoodatlas.medicine.[facility]/. Last address used for calculation [address] 04/28/2025 Comments No Sex and Gender Information Value Date Recorded Sex Assigned at Not on file Legal Sex Female 9:50 AM EST Gender Identity Not on file Sexual Orientation Not on file documented as of this encounter Miscellaneous Notes * Telephone Encounter - Luis Bah MD - 05/21/2025 1:57 PM EDT I spoke with her friend Zhen Montenegro now. He said she saw the licensed nuclear operator yesterday. He said he will inform her to call our office back later today. Please try calling her again later today and see if you can get hold of her. Thank you. * Telephone Encounter - Vicenta Lambert RN - 05/21/2025 1:34 PM EDT I attempted to call Sean for an update regarding her cardiology appointment 05/20/25 but therewas no answer and the voicemail is full. Patient has no appointments scheduled with med onc or rad onc at this time. SIM and chemo ed are to be rescheduled depending on cardiology update. Thanks Vicenta Lambert RN * Telephone Encounter - Lucero Kunz - 05/19/2025 10:45 AM EDT Cancelled per request * Telephone Encounter - Vicenta Lambert RN - 05/19/2025 10:34 AM EDT I spoke with Sean and she is scheduled with Dr. Haywood, [facility] cardiology, 05/20/25 at 2:00 pm. She will call our office with an update Monday afternoon or Monday morning. PSS: please cancel chemo ed and rad onc appointments scheduled 05/20/25. These will be rescheduled at a later date. Thanks Vicenta Lambert RN * Telephone Encounter - Alvina Jose - 05/16/2025 11:05 AM EDT Echo is scanned. Stress test was cancelled. See scanned note from Mallory. * Telephone Encounter - Luis Bah MD - 05/14/2025 4:50 PM EDT Please obtain the stress test results. Yes cardiac issues needs to be addressed first. Her licensed nuclear operator is Dr.Cooper Escoto Thank you * Telephone Encounter - Jose Manuel Alfaro MD - 05/14/2025 3:34 PM EDT If she has any acute cardiac issues/concerns - those should be addressed prior to simulation and starting radiation therapy. Thanks! Jose Manuel * Telephone Encounter - Lucero Kunz - 05/14/2025 3:34 PM EDT Cancelled Main campus appts per request. Closing other encounters to prevent duplicates * Telephone Encounter - Vicenta Lambert RN - 05/14/2025 2:29 PM EDT PSS: please cancel the appt's at [facility] Main on 05/30/25-ok per Dr. Bah. Christine or I will notify Sean of the above when we call her on 05/19/25. Thanks Vicenta Lambert RN * Telephone Encounter - Luis Bah MD - 05/14/2025 1:57 PM EDT We can cancel the appt with for now. We will do concurrent chemoRT followed by maintenance Durvalumab. Thank you. * Telephone Encounter - Vicenta Lambert RN - 05/14/2025 1:33 PM EDT Sean called back flustered that she is receiving calls from a couple people from our office. She expressed that we all need to get on the same page and just have 1 person call her from now on. She again states she doesn't have any family/friend support and she is overwhelmed. We agreed that either Christine or I will call her on Monday to get an update regarding her stress test/echo partially done today and discuss further appointments with our office. Dr. Bah: Sean is scheduled for ECHO and consult with Dr. Murray on 05/30/25. She is wondering if this still necessary since she is not a surgical candidate? She also voiced concern that she is not able to drive to [place]. Please advise. Per patient request, please only have Christine or myself call patient with questions and/or appointments from/for our office at this time. Thanks Vicenta Lambert RN * Telephone Encounter - Sabi Ordonez RN - 05/14/2025 1:12 PM EDT Call placed to pt to see if she could come over for SIM today as Dr Alfaro wanted this moved up if possible. Pt did answer phone but was very distraught. She is currently at [facility] and saidmatteo was having stress test and echo. They stopped the testing and said they were not comfortable continuing due to what they were seeing on her test. They were trying to reach the doctor, but couldn't . They gave her a voucher for the cafeteria and told her to go eat. They did not tell her she couldnot leave. She stated she is just too upset to leave at this time. She was told to watch for signs of a heart attack and that they could see changes on her testing just from what was done 2 weeks agowith cardiology. Per pt, she met new licensed nuclear operator 2 weeks ago due to her provider leaving and this d octor finally listened to her. Pt stated she cancelled her Port placement because when she saw Dr Alfaro he said he would not be able to do anything until her heart was figured out anyway. She did not see a point in going thru a surgery until they knew her heart was ok. Pt stated, and its a good thing I didn't, because you see what they found. She was not comfortable scheduling any appts with us at this time. I let her know I would update our team on what was going on. I did also let pt know her voicemail is full so she may need to delete messages. She said she can not do that as they are from 2019 from her Mom and she is saving them to have her daughter listen to when she talks to her again some day. She stated that her Mom took her daughter away 20 years ago and her daughter thinks she abandoned her and still wont speak to her. Pt stated multiple times, I dont have anybody. No one to take care of me, to help me with rides, nothing. She did speak to Danika at length yesterday and will be following with her. Pt stated that if we are unable to reach her via phone, please send mychart message and she will see that if Is regarding appts, etc. Sabi Ordonez RN documented in this encounter Plan of Treatment Upcoming Encounters Date Type Department Care Team (Late st Contact Info) Description 05/23/2025 12:30 PM EDT Office Visit PULMONARY [address] [facility] [place] [address] LW* Malignant neoplasm of right lung, unspecified part of lung (HCC) [C34.91] 05/23/2025 1:00 PM EDT Procedure PULMONARY [address] [facility] [place] [address] LW* Malignant neoplasm of right lung, unspecified part of lung (HCC) [C34.91] documented as of this encounter Visit Diagnoses Not on filedocumented in this encounter Care Teams Paper Bag Making Machinist Relationship Specialty Start Date End Date Cindy Perez MD [address] [place] [address] PCP - General Internal Medicine 04/23/25 Danika Saenz LSW Transport Conductor 04/28/25 documented as of this encounter
--- OUTSIDE RECORDS SUMMARY | 2025-05-21 15:22 | XMS_ITS | Encounter Summary ---
Author Organization [facility] Address [address] [place] [address] Care Team Providers Care Magisterial District Judge Name Role Phone Cindy Preez MD Primary Care Provider [phone] Danika Saenz Unavailable Unavailable Source Comments In the event this information is protected by the Federal Confidentiality of Alcohol and Drug AbusePatient Records regulations: The Federal rules restrict any use of the information to criminally investigate or prosecute any alcohol or drug abuse patient.[facility] Encounter Details Date Type Department Care Team (Late st Contact Info) Description 05/12/2025 Telephone Hematology/Oncology [address] [place] [address] [place] [address] Danika Saenz LSW Social History Tobacco Use Types Packs/Day Years [...] is lower risk 6 04/28/2025 Data from: https://www.neighborhoodatlas.medicine.[facility]/. Last address used for calculation [address] 04/28/2025 Comments No Sex and Gender Information Value Date Recorded Sex Assigned at Not on file Legal Sex Female 9:50 AM EST Gender Identity Not on file Sexual Orientation Not on file documented as of this encounter Miscellaneous Notes * Telephone Encounter - Danika Saenz LSW - 05/12/2025 2:32 PM EDT SOCIAL WORK FOLLOW UP NOTE: CANCER CENTER [...] Dr. Bah Radiation Oncologist: Dr. Jose Manuel Lynn Goals of Care: Curative intent Today's visit includes: self/patient Family History of Cancer: not discussed SUPPORT NETWORK: Social Connections: Not on file Marital status: Parent(s): Mother is living Child/Children: Yes. How many? Daughter Hannah 28 and son Rojelio 26 (neither child has a relation withPatient) cna caregiver arrangements needed: Na Siblings: 1 brother(s) Grandchild(sanjuanita): 1 Home Health Provider: [facility] Community Services: NA Sonya Identified: not discussed Druze/Spirituality: Unknown Are these practices or beliefs that may affect or influence treatment? Unknown EMPLOYMENT/FINANCIAL/HEALTH INSURANCE: Employment: Unemployed Income source: Social Security incremental income (SSI) Insurance: Medicaid active Prescription coverage: Yes Is the patient appropriate for referral to [facility] Assistance program? N/A Financial Distress: Yes, What assistance is needed? Housing, Utilities, Cost of parking, Medicationcosts, Medical supplies, Food/meals, and Co-pays [place]: No FOOD INSECURITY Within the past year, have you worried about how you would buy or obtain food? Not Assessed LIVING ARRANGEMENTS: Type: a tiny cabin (uninsulated and without running water; has access to a main house with water). Resides with: Alone Transportation Needs: No Transportation Needs (03/17/2025) [facility] Lack of Transportation (Medical): No Lack of Transportation (Non-Medical): No FUNCTIONAL STATUS: Cognitive limitations: none Physical limitations: none Language barrier: No Hearing Impaired: No Speech Impaired: No Visual Impairments: No Special considerations/accommodations needed: Na HEALTH LITERACY: Do you have [...] reports that [facility]. Patient reports daily marijuana use, smokes cigarettes and drinks alcohol. Issues with: Sleep:Yes Eating:Yes Exercising: N/A Stress Management: Yes ADVANCE DIRECTIVES/LEGAL DOCUMENTS: Living Will: Not addressed during this encounter Scanned into Narus: Not addressed during this encounter Health Care Durable Power of City Director: Not addressed during this encounter Scanned into [...] likely to have an impact on the patient's quality of life during treatment? Yes Practical Concerns Emotional Concerns INTERVENTIONS/REFERRALS TO BE PROVIDED: Monitor patient response to treatment Communicate pertinent medical/psychosocial information to Cancer Center team Provide emotional support to patient/family Referral to community resource Assist with financial support applications Resources and Referrals: Internal: [facility] External: Other possible referral to [facility]. CLINICAL IMPRESSION: Patient is a 54 year old female with a diagnosis of lung cancer. Patient lives in [place], [place] in whatshe refers to as a tiny cabin with her 20 cats. 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 Patient receives [employer] financial concerns because she cares for her cats and leaves her with limited funds for herself. SW [facility]. Patient is concerned about her cabin because it does not have insulation nor running water. Patient does have access to main house on the property owned by her ex-boyfriend Zhen Montenegro and there is running water and heat. Patient does not prefer to go to Zhen's house due to the lack of cleanliness on his home. Patient reports feeling overwhelmed and has essentially no social support. Patient is tearful. SW provided active listening and psychosocial support. SW will continue to follow this Patient. Psychosocial Risk Criteria If positive for one or more of the following risk criteria, follow up every 30 days Age: NA Mental Health: Substance Abuse Practical Needs: Financial/Insurance Lives in [place] Community Limited Social Support PLAN: follow up PRN Follow up appointment with SW in: PRN Assigned SW listed in Care Team tab: Yes BJORN Ag documented in this encounter Plan of Treatment Upcoming Encounters Date Type Department Care Team (Late st Contact Info) Description 05/23/2025 12:30 PM EDT Office Visit PULMONARY [address] [place] [id number] LW* Malignant neoplasm of right lung, unspecified part of lung (HCC) [C34.91] 05/23/2025 1:00 PM EDT Procedure PULMONARY [address] [place] [address] LW* Malignant neoplasm of right lung, unspecified part of lung (HCC) [C34.91] documented as of this encounter Visit Diagnoses Not on filedocumented in this encounter Care Teams Magisterial District Judge Relationship Specialty Start Date End Date Cindy Perez MD [address] [place] [address] PCP - General Internal Medicine 04/23/25 Danika Saenz LSW Timber Buyer 04/28/25 documented as of this encounter
--- OUTSIDE RECORDS SUMMARY | 2025-05-21 15:22 | XMS_ITS | Encounter Summary ---
Author Organization [facility] Address [address] [place] [address] Care Team Providers Care Plugger Name Role Phone Cindy Perez MD Primary Care Provider [phone] Danika Sanez Unavailable Unavailable Source Comments In the event this information is protected by the Federal Confidentiality of Alcohol and Drug AbusePatient Records regulations: The Federal rules restrict any use of the information to criminally investigate or prosecute any alcohol or drug abuse patient.[facility] Encounter Details Date Type Department Care Team (Late st Contact Info) Description 05/08/2025 Orders Only [facility] Radiology Procedure 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/. Last address used for calculation [address] [...] 12:30 PM EDT Office Visit PULMONARY [address] [place] [address] LW* Malignant neoplasm of right lung, unspecified part of lung (HCC) [C34.91] 05/23/2025 1:00 PM EDT Procedure PULMONARY [address] [place] [address] LW* Malignant neoplasm of right lung, unspecified part of lung (HCC) [C34.91] Scheduled Orders Name Type Priority Associated Diagnoses Orde r Schedule COMPLETE BLOOD COUNT Lab Routine Pre-procedure lab exam Expected: 05/09/2025, Expires: 08/08/2025 COMPREHENSIVE METABOLIC PANEL Lab Routine Pre-procedure lab exam Expected: 05/09/2025, Expires: 08/08/2025 documented as of this encounter Visit Diagnoses Diagnosis Pre-procedure lab exam- Primary Pre-procedural laboratory examination 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
--- OUTSIDE RECORDS SUMMARY | 2025-05-21 15:22 | XMS_ITS | Encounter Summary ---
Author Organization [facility] Address [address] [place] [address] Care Team Providers Care National Account Executive Name Role Phone Cindy Perez MD Primary Care Provider [phone] Danika Saenz Unavailable Unavailable Source Comments In the event this information is protected by the Federal Confidentiality of Alcohol and Drug AbusePatient Records regulations: The Federal rules restrict any use of the information to criminally investigate or prosecute any alcohol or drug abuse patient.[facility] Encounter Details Date Type Department Care Team (Late st Contact Info) Description 05/08/[address] [facility] Radiology Procedure [address] [place] [address] Brittany Madrigal, ALEKSANDR Social History Tobacco Use Types Packs/Day [...] is lower risk 6 04/28/2025 Data from: https://www.neighborhoodatlas.medicine.[facility]/. Last address used for calculation [address] [...] 12:30 PM EDT Office Visit PULMONARY [address] [place] [address] LW* Malignant neoplasm of right lung, unspecified part of lung (HCC) [C34.91] 05/23/2025 1:00 PM EDT Procedure PULMONARY [address] [place] [address] LW* Malignant neoplasm of right lung, unspecified part of lung (HCC) [C34.91] documented as of this encounter Visit Diagnoses Not on filedocumented in this encounter Care Teams National Account Executive Relationship Specialty Start Date End Date Cindy Perez MD [address] [place] [address] PCP - General Internal Medicine 04/23/25 Danika Saenz LSW Wet Wash Assembler 04/28/25 documented as of this encounter
--- OUTSIDE RECORDS SUMMARY | 2025-05-21 15:22 | XMS_ITS | Encounter Summary ---
Author Organization [facility] Address [address] [place] [address] Care Team Providers Care Tree Fruit And Nut Farming Supervisor Name Role Phone Cindy Perez MD Primary Care Provider [phone] Danika Saenz Unavailable Unavailable Source Comments In the event this information is protected by the Federal Confidentiality of Alcohol and Drug AbusePatient Records regulations: The Federal rules restrict any use of the information to criminally investigate or prosecute any alcohol or drug abuse patient.[facility] Reason for Referral * Specialty Diagnoses / Procedures Referred By Contac t Referred To Contact Diagnoses 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) Luis Bah MD [facility] [place] [address] Phone: tel: fax: Referral ID Status Reason Start Date Expiration Date Visits Re quested Visits Authorized Reason for Visit * Reason Comments Care Coordination Treatment prep Encounter Details Date Type Department Care Team ([facility] st Contact Info) Description 05/19/2025 Telephone Hematology/Oncology [facility] [place] [address] Cindy Morgan RN [address] [place] [address] Care Coordination (Treatment prep) Social History Tobacco Use Types Packs/Day Years [...] is lower risk 6 04/28/2025 Data from: https://www.neighborhoodatlas.medicine.[facility]/. Last address used for calculation [address] 04/28/2025 Comments No Sex and Gender Information Value Date Recorded Sex Assigned at Not on file Legal Sex Female 9:50 AM EST Gender Identity Not on file Sexual Orientation Not on file documented as of this encounter Miscellaneous Notes * Telephone Encounter - Cindy Morgan RN - 05/19/2025 10:03 AM EDT Pt will be in tomorrow for education. Please sign pending orders. 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
--- OUTSIDE RECORDS SUMMARY | 2025-05-21 15:22 | XMS_ITS | Encounter Summary ---
Author Organization [facility] Address [address] [place] [address] Care Team Providers Care Clock Mechanic Name Role Phone Cindy Perez MD Primary Care Provider [phone] Danika Saenz Unavailable Unavailable Source Comments In the event this information is protected by the Federal Confidentiality of Alcohol and Drug AbusePatient Records regulations: The Federal rules restrict any use of the information to criminally investigate or prosecute any alcohol or drug abuse patient.[facility] Reason for Visit * Reason Comments Appointment Encounter Details Date Type Department Care Team ([facility] Contact Info) Description 05/09/2025 Telephone Radiation Oncology [address] [place] [address] [place] [address] Alvina Rodriguez, RN [address] [place] [address] Appointment Social History Tobacco Use Types Packs/Day [...] is lower risk 6 04/28/2025 Data from: https://www.neighborhoodatlas.medicine.[facility].edu/. Last address used for calculation [address] [...] encounter Miscellaneous Notes * Telephone Encounter - Vicenta Lambert RN - 05/14/2025 2:31 PM EDT Nursing reminder created for 05/19/25-Christine or Jhon will call patient for an update regarding cardiology and will notify patient of SIM tentatively scheduled on 05/20/25. Please do not call patient per her request. She is overwhelmed with all the calls and everything going on, she would only like Christine or I to call her at this time. Thanks Vicenta Lambert RN * Telephone Encounter - Lucero Kunz - 05/14/2025 1:20 PM EDT Spoke to patient, confirmed date and time for sim * Telephone Encounter - Lucero Kunz - 05/14/2025 9:11 AM EDT Rt ed, iv start and chemo education added. VM full, will try again to contact patient. * Telephone Encounter - Megha Oliver RT(R) - 05/14/2025 7:53 AM EDT Sim scheduled on 05/20/25 at 2pm PSS - please schedule RT ed at 130, nurse visit for IV at 145, & coordinate chemo ed appt as well. -Notify pt of arrival time - no special instructions for sim Thanks! Megha Oliver RT(R)(T) * Telephone Encounter - Soledad Mo RT(R) - 05/12/2025 3:13 PM EDT Waiting on sim req- per FABIANA can schedule patient when done with other appointments later this week. Thanks, Soledad Mo RT(R)(T) * Telephone Encounter - Vicenta Lambert RN - 05/12/2025 10:13 AM EDT Patient will need chemo ed scheduled same day of SIM please. Thanks Vicenta Lambert, RN * Telephone Encounter - Alvina Rodriguez RN - 05/09/2025 4:57 PM EDT Consented for a SIM Schedule SIM of chest with 40 CT IV CONTRAST next MONDAY if possible 05/13/25 Schedule for IV nurse visit Schedule for RT education nurse visit Upon talking with patient she has a port placement scheduled for Monday and cardiac testing on Monday of next week. Please discuss scheduling with Dr. Lynn. Alvina Rodriguez, RN documented in this encounter Plan of Treatment Upcoming Encounters Date Type Department Care Team (Late st Contact Info) Description 05/23/2025 12:30 PM EDT Office Visit PULMONARY [address] [facility] [place] [address] LW* Malignant neoplasm of right lung, unspecified part of lung (HCC) [C34.91] 05/23/2025 1:00 PM EDT Procedure PULMONARY [address] [facility] [place] [address] LW* Malignant neoplasm of right lung, unspecified part of lung (HCC) [C34.91] documented as of this encounter Visit Diagnoses Not on filedocumented in this encounter Care Teams Clock Mechanic Relationship Specialty Start Date End Date Cindy Perez MD [address] [place] [address] PCP - General Internal Medicine 04/23/25 Danika Saenz LSW Body Team Member 04/28/25 documented as of this encounter
--- OUTSIDE RECORDS SUMMARY | 2025-05-21 15:22 | XMS_ITS | Encounter Summary ---
Author Organization [facility] Address [address] [address] Care Team Providers Care Family Specialist Name Role Phone Cindy Perez MD Primary Care Provider [phone] Danika Saenz Unavailable Unavailable Source Comments In the event this information is protected by the Federal Confidentiality of Alcohol and Drug AbusePatient Records regulations: The Federal rules restrict any use of the information to criminally investigate or prosecute any alcohol or drug abuse patient.[facility] Reason for Visit * Reason Comments Radiology Pre Procedure Instructions Encounter Details Date Type Department Care Team ([facility] Contact Info) Description 05/08/2025 Telephone [facility] Radiology Procedure [address] [place] [address] Brittany Madrigal RN Radiology Pre Procedure Instructions Social History [...] is lower risk 6 04/28/2025 Data from: https://www.neighborhoodatlas.medicine.[facility]/. Last address used for calculation [address] 04/28/2025 Comments No Sex and Gender Information Value Date Recorded Sex Assigned at Not on file Legal Sex Female 9:50 AM EST Gender Identity Not on file Sexual Orientation Not on file documented as of this encounter Miscellaneous Notes * Telephone Encounter - Brittany Madrigal RN - 05/08/2025 5:32 PM EDT Called patient to provide preprocedure instructions. No answer, mailbox full and unable to leave message. documented in this encounter Plan of Treatment Upcoming Encounters Date Type Department Care Team (Late st Contact Info) Description 05/23/2025 12:30 PM EDT Office Visit PULMONARY [address] [place] [address] LW* Malignant neoplasm of right lung, unspecified part of lung (HCC) [C34.91] 05/23/2025 1:00 PM EDT Procedure PULMONARY [address] [place] [address] LW* Malignant neoplasm of right lung, unspecified part of lung (HCC) [C34.91] documented as of this encounter Visit Diagnoses Not on filedocumented in this encounter Care Teams Family Specialist Relationship Specialty Start Date End Date Cindy Perez MD [address] [place] [address] PCP - General Internal Medicine 04/23/25 Danika Saenz LSW Intervention Teacher 04/28/25 documented as of this encounter
--- NOTE | 2025-05-21 15:41 | PC.NURSE ---
Nursing Note Cardiac Stress Test Reviewed: Medication, allergies and patient history reviewed. Stress Test: [x ] Patient tolerated stress test well. [ ] Patient unable to tolerate walking on treadmill. Switched to Lexiscan stress test. [x ] No chest pain noted per patient [ ] Chest pain that resolved prior to leaving stress lab. [ ] No dyspnea noted. [x ] Dyspnea that resolved prior to leaving stress lab. [x ] Patient left stress lab asymptomatic and hemodynamically stable. [ ] Patient taken to the Emergency Room due to non-resolving symptoms following stress test. [x ] Patient achieved target heart rate. [ ] Patient unable to achieve target heart rate. [ ] Aminophylline administered as reversal agent to Lexiscan (Regadenoson). [ ] Nitro administered. Nursing Comments:
--- OUTSIDE RECORDS SUMMARY | 2025-05-21 16:16 | XMS_ITS | CCD ---
Author Name Barbie BOWIE, Dr Bagley Address [address] [place] [address] Phone Organization [facility] Phone Care Team Providers Care Rolls Baker Name Role Phone Unavailable Primary Care Provider Unavailabl e Unavailable Chronic Care Management Unavaila ble Summary Purpose DataExchange Insurance Providers Payer name Policy type / Coverage type Covered republican ID Effective Begin Date Effective End Date BRENDAN ALFONSO [id number] Unknown Unknown Family history Father Diagnosis Age [...] Current Smoker 12/05/[address]: [id number] Never drinks alco hol 12/05/2019 Allergies, Adverse [...] D3) 50 mcg (2,000 unit) tablet RxNorm: 396524 TAKE 1 TABLET BY MOUTH EVERY DAY 03/08/20 23 023 Inactive Daily-Davion tablet RxNorm: Take 1 Tablet( s) Oral every day 03/08/20 023 Inactive Spiriva Respimat 2.5 mcg/actuation solution for inhalation RxNorm: 2837753 2 Puff(s) Inhalation every day at the same time each day 03/08/20 023 Inactive clotrimazole 1 % topical cream RxNorm: 713620 Apply 1 Application Topical two times a day as needed apply to affected area(s) twice daily until healed 03/08/20 23 023 Inactive Spiriva Respimat 2.5 mcg/actuation solution for inhalation RxNorm: 1731269 2 Puff(s) Inhalation every day at the same time each day 03/08/20 023 Inactive cholecalciferol (vitamin D3) 50 mcg (2,000 unit) tablet RxNorm: 248966 TAKE 1 TABLET BY MOUTH EVERY DAY 01/27/20 022 Inactive Daily-Davion tablet RxNorm: Take 1 Tablet( s) Oral every day 01/25/20 22 022 Inactive clotrimazole 1 % topical cream RxNorm: 261724 Apply 1 Application Topical two times a day as needed apply to affected area(s) twice daily until healed 01/13/20 22 023 Inactive hydrocortisone 1 % lotion RxNorm: 480708 Take 2 Gram(s) Topical every day 12/17/19 22 022 Inactive Daily-Davion tablet RxNorm: Take 1 Tablet( s) Oral every day 07/29/20 21 021 Inactive Daily Vitamin Formula tablet RxNorm: 1 Tablet(s) Oral every day 02/03/20 21 021 Inactive cholecalciferol (vitamin D3) 50 mcg (2,000 unit) tablet RxNorm: 369023 TAKE 1 TABLET BY MOUTH EVERY DAY 12/29/19 21 021 Inactive Daily Vitamin Formula tablet RxNorm: 1 Tablet(s) Oral every day 05/15/20 20 021 Inactive cholecalciferol (vitamin D3) 2,000 unit tablet RxNorm: 558607 1 Tablet(s) Oral every day 12/07/19 20 021 Inactive Marijuana (Legal) RxNorm: 12/05/19 20 Active Medication Administered No Medication Administered data Results Observation Observation Code Item Item Code Result Date Service Location PHOSPHORUS 11439 Phosphorus 2777-1 4.2 mg/dL 023 [facility] [address] [place] [address] VITAMIN D 03656 Vitamin D 43847-9 55.0 ng/mL 023 [facility] [address] [place] [address] CHEM 14 (METABOLIC PANEL) 30126 Glucose 2345-7 114 mg/dL 023 [facility] [address] [place] [address] CHEM 14 (METABOLIC PANEL) 32444 BUN 3094-0 9 mg/dL 023 [facility] [address] [place] [address] CHEM 14 (METABOLIC PANEL) 98128 Creatinine 2160-0 0.9 mg/dL 023 [facility] [address] [place] [address] CHEM 14 (METABOLIC PANEL) 76764 BUN/Creat Ratio 3097-3 9.7 023 [facility] [address] [place] [address] CHEM 14 (METABOLIC PANEL) 34860 GFR Estimated 11279-4 74 mL/min/1.73 m2 023 [facility] [address] [place] [address] CHEM 14 (METABOLIC PANEL) 85152 Sodium 2951-2 136 mmol/L 023 [facility] [address] [place] [address] CHEM 14 (METABOLIC PANEL) 73794 Potassium 2823-3 4.2 mmol/L 023 [facility] [address] [place] [address] CHEM 14 (METABOLIC PANEL) 20106 Chloride 2075-0 102 mmol/L 023 [facility] [address] [place] [address] CHEM 14 (METABOLIC PANEL) 96260 Total CO2 2028-9 26 mmol/L 023 [facility] [address] [place] [address] CHEM 14 (METABOLIC PANEL) 54794 Calculated Serum Osmolality 12270-1 282 mOsm/kg 023 [facility] [address] [place] [address] CHEM 14 (METABOLIC PANEL) 27519 Anion Gap 1863-0 12.2 mEq/L 023 [facility] [address] [place] [address] CHEM 14 (METABOLIC PANEL) 21190 Albumin 63355-8 4.5 g/dL 023 [facility] [address] [place] [address] CHEM 14 (METABOLIC PANEL) 09279 Total Protein 2885-2 7.6 g/dL 023 [facility] [address] [place] [address] CHEM 14 (METABOLIC PANEL) 50016 Globulin 2336-6 3.1 g/dL 023 [facility] [address] [place] [address] CHEM 14 (METABOLIC PANEL) 09513 Albumin/Globulin Ratio 1759-0 1.5 023 [facility] [address] [place] [address] CHEM 14 (METABOLIC PANEL) 48464 ALK PHOS 6768-6 101.00 U/L 023 [facility] [address] [place] [address] CHEM 14 (METABOLIC PANEL) 65824 SGOT/AST 1920-8 19 U/L 023 [facility] [address] [place] [address] CHEM 14 (METABOLIC PANEL) 81419 SGPT/ALT 1743-4 20 U/L 023 [facility] [address] [place] [address] CHEM 14 (METABOLIC PANEL) 33194 Total Bilirubin 1975-2 0.6 mg/dL 023 [facility] [address] [place] [address] CHEM 14 (METABOLIC PANEL) 57374 Calcium 30246-3 9.6 mg/dL 023 [facility] [address] [place] [address] CHEM 14 (METABOLIC PANEL) 10872 Corrected Calcium 30592-9 9.4 mg/dL 023 [facility] [address] [place] [address] MAGNESIUM 79157 Magnesium 42906-1 2.2 mg/dL 023 [facility] [address] [place] [address] COMPLETE CBC W/ DIFF WBC 36954 WBC 6690-2 9.2 K/ul 023 [facility] [address] [place] [address] COMPLETE CBC W/ DIFF WBC 65713 RBC 789-8 4.73 M/uL 023 [facility] [address] [place] [address] COMPLETE CBC W/ DIFF WBC 21250 Hemoglobin 718-7 16.1 g/dL 023 [facility] [address] [place] [address] COMPLETE CBC W/ DIFF WBC 57366 Hematocrit 4544-3 46.6 % 023 [facility] [address] [place] [address] COMPLETE CBC W/ DIFF WBC 97173 MCV 787-2 98.4 fL 023 [facility] [address] [place] [address] COMPLETE CBC W/ DIFF WBC 22461 MCH 785-6 34.1 pg 023 [facility] [address] [place] [address] 48068 COMPLETE CBC W/ DIFF WBC 96937 MCHC 786-4 34.6 g/dL 023 [facility] [address] [place] [address] 35521 COMPLETE CBC W/ DIFF WBC 19595 RDW 788-0 14.1 % 023 [facility] [address] [place] [address] 17268 COMPLETE CBC W/ DIFF WBC 24081 Platelet Count 777-3 358 K/uL 023 [facility] [address] [place] [address] 82003 COMPLETE CBC W/ DIFF WBC 15618 MPV 20269-9 9.3 fL 023 [facility] [address] [place] [address] 66354 COMPLETE CBC W/ DIFF WBC 79321 Neutrophils % 770-8 65.6 % 023 [facility] [address] [place] [address] 38332 COMPLETE CBC W/ DIFF WBC 83637 Lymphocytes % 736-9 26.8 % 023 [facility] [address] [place] [address] 88435 COMPLETE CBC W/ DIFF WBC 38719 Monocytes % 5905-5 6.2 % 023 [facility] [address] [place] [address] 05454 COMPLETE CBC W/ DIFF WBC 39556 Eosinophils % 713-8 0.2 % 023 [facility] [address] [place] [address] 81640 COMPLETE CBC W/ DIFF WBC 32577 Basophils% 706-2 1.2 % 023 [facility] [address] [place] [address] 55695 COMPLETE CBC W/ DIFF WBC 86771 Absolute Neutrophil 751-8 6035 /ul 023 [facility] [address] [place] [address] 04210 COMPLETE CBC W/ DIFF WBC 45701 Absolute Lymphocyte 41689-5 2466 /ul 023 [facility] [address] [place] [address] COMPLETE CBC W/ DIFF WBC 63611 Absolute Monocyte 742-7 570 /ul 023 [facility] [address] [place] [address] COMPLETE CBC W/ DIFF WBC 63377 Absolute Eosinophil 711-2 18 /ul 023 [facility] [address] [place] [address] 42789 COMPLETE CBC W/ DIFF WBC 36496 Absolute Basophil 704-7 110 /ul 023 [facility] [address] [place] [address] 07729 URIC ACID 16264 Uric Acid 3084-1 4.1 mg/dL 023 [facility] [address] [place] [address] 66359 MICROALBUMIN (URINE) 66174 Microalbumin 38707-6 2.2 mg/dL 023 [facility] [address] [place] [address] 56050 MICROALBUMIN (URINE) 74603 Microalbumin/Crea tinine Ratio 45154-3 23 MCG/MGCREAT 023 [facility] [address] [place] [address] 05684 MICROALBUMIN (URINE) 10991 Urine Creatinine 2161-8 97.40 mg/dL 023 [facility] [address] [place] [address] 28238 PTH 39167 PTH 2731-8 29.1 pg/mL 023 [facility] [address] [place] [address] 02877 URINALYSIS AUTO W/SCOPE 09502 Glucose 2345-7 Negative mg/dL 023 [facility] [address] [place] [address] 28954 URINALYSIS AUTO W/SCOPE 64938 Protein 30 mg/dL + mg/dL 023 [facility] [address] [place] [address] 88233 URINALYSIS AUTO W/SCOPE 64241 Bilirubin Negative mg/dL 023 [facility] [address] [place] [address] 84318 URINALYSIS AUTO W/SCOPE 25132 Urobilinogen Negative mg/dL 023 [facility] [address] [place] [address] URINALYSIS AUTO W/SCOPE 64094 Ph 6.00 023 [facility] [address] [place] [address] URINALYSIS AUTO W/SCOPE 79559 Blood 0.03 mg/dL + mg/dL 023 [facility] [address] [place] [address] URINALYSIS AUTO W/SCOPE 74322 Ketones Negative mg/dL 023 [facility] [address] [place] [address] URINALYSIS AUTO W/SCOPE 47111 Nitrite Negative 023 [facility] [address] [place] [address] URINALYSIS AUTO W/SCOPE 59493 Leukocytes Negative WBCs/uL 023 [facility] [address] [place] [address] URINALYSIS AUTO W/SCOPE 52326 Clarity Cloudy 023 [facility] [address] [place] [address] URINALYSIS AUTO W/SCOPE 76184 Specific Lind[place] 1.017 023 [facility] [address] [place] [address] URINALYSIS AUTO W/SCOPE 85428 Color Rosa 023 [facility] [address] [place] [address] URINALYSIS AUTO W/SCOPE 95377 Ascorbic Acid Negative mg/dL 023 [facility] [address] [place] [address] URINALYSIS AUTO W/SCOPE 60109 Red Blood Cell 3 /HPF #/HPF 023 [facility] [address] [place] [address] URINALYSIS AUTO W/SCOPE 82692 SQUAMOUS EPITHELIAL 11 /HPF #/HPF 023 [facility] [address] [place] [address] URINALYSIS AUTO W/SCOPE 11497 White Blood Cell 3 /HPF #/HPF 023 [facility] [address] [place] [address] URINALYSIS AUTO W/SCOPE 22610 Bacteria Trace graded/HPF 023 [facility] [address] [place] [address] URINALYSIS AUTO W/SCOPE 56151 Calcium Oxalate Crystal MOD graded/HPF 023 [facility] [address] [place] [address] URINALYSIS AUTO W/SCOPE 76580 TRANSITIONAL EPITHELIAL 1 /HPF #/HPF 023 [facility] [address] [place] [address] 60504 Hemoccult Screening Immunoassay G0328 Fecal Occult Blood Test (FOBT) Screening 11355-3 Negative 023 [facility] [address] [place] [address] NO ORDERS HEMOCCULT NO ORDERS HEMOCCULT NO ORDERS FOBT 0.00 023 [facility] [address] [place] [address] 63873 Patient Health Questionnaire (PHQ2) Little interest or pleasure in doing things 81160-9 0 023 Unknown Patient Health Questionnaire (PHQ2) Feeling down, depressed, or hopeless 67859-4 0 023 Unknown Patient Health Questionnaire (PHQ2) Total Score 0 023 Unknown COMPLETE CBC W/ DIFF WBC 05900 WBC 6690-2 11.2 K/ul 023 [facility] [address] [place] [address] 50090 COMPLETE CBC W/ DIFF WBC 72019 RBC 789-8 4.72 M/uL 023 [facility] [address] [place] [address] 45788 COMPLETE CBC W/ DIFF WBC 55661 Hemoglobin 718-7 15.8 g/dL 023 [facility] [address] [place] [address] 66527 COMPLETE CBC W/ DIFF WBC 62180 Hematocrit 4544-3 47.0 % 023 [facility] [address] [place] [address] 43580 COMPLETE CBC W/ DIFF WBC 29113 MCV 787-2 99.6 fL 023 [facility] [address] [place] [address] 93358 COMPLETE CBC W/ DIFF WBC 12292 MCH 785-6 33.6 pg 023 [facility] [address] [place] [address] 04753 COMPLETE CBC W/ DIFF WBC 21140 MCHC 786-4 33.7 g/dL 023 [facility] [address] [place] [address] 88608 COMPLETE CBC W/ DIFF WBC 13400 RDW 788-0 14.9 % 023 [facility] [address] [place] [address] 15574 COMPLETE CBC W/ DIFF WBC 49267 Platelet Count 777-3 388 K/uL 023 [facility] [address] [place] [address] COMPLETE CBC W/ DIFF WBC 76396 MPV 91576-5 9.5 fL 023 [facility] [address] [place] [address] COMPLETE CBC W/ DIFF WBC 01187 Neutrophils % 770-8 66.6 % 023 [facility] [address] [place] [address] COMPLETE CBC W/ DIFF WBC 03158 Lymphocytes % 736-9 26.3 % 023 [facility] [address] [place] [address] COMPLETE CBC W/ DIFF WBC 68308 Monocytes % 5905-5 5.8 % 023 [facility] [address] [place] [address] COMPLETE CBC W/ DIFF WBC 31053 Eosinophils % 713-8 0.2 % 023 [facility] [address] [place] [address] COMPLETE CBC W/ DIFF WBC 75153 Basophils% 706-2 1.1 % 023 [facility] [address] [place] [address] COMPLETE CBC W/ DIFF WBC 49696 Absolute Neutrophil 751-8 7459 /ul 023 [facility] [address] [place] [address] 77257 COMPLETE CBC W/ DIFF WBC 89889 Absolute Lymphocyte 56297-6 2946 /ul 023 [facility] [address] [place] [address] 22052 COMPLETE CBC W/ DIFF WBC 07697 Absolute Monocyte 742-7 650 /ul 023 [facility] [address] [place] [address] COMPLETE CBC W/ DIFF WBC 60080 Absolute Eosinophil 711-2 22 /ul 023 [facility] [address] [place] [address] 21751 COMPLETE CBC W/ DIFF WBC 18787 Absolute Basophil 704-7 123 /ul 023 [facility] [address] [place] [address] 02699 VITAMIN D 72799 Vitamin D 58155-7 72.9 ng/mL 023 [facility] [address] [place] [address] TRIGLYCERIDES 77655 Triglycerides 2571-8 115 mg/dL 023 [facility] [address] [place] [address] TRIGLYCERIDES 73823 VLDL 56529-0 23 mg/dL 023 [facility] [address] [place] [address] 24704 CHEM 14 (METABOLIC PANEL) 78342 Glucose 2345-7 98 mg/dL 023 [facility] [address] [place] [address] CHEM 14 (METABOLIC PANEL) 45107 BUN 3094-0 12 mg/dL 023 [facility] [address] [place] [address] 78821 CHEM 14 (METABOLIC PANEL) 53205 Creatinine 2160-0 1.3 mg/dL 023 [facility] [address] [place] [address] CHEM 14 (METABOLIC PANEL) 36755 BUN/Creat Ratio 3097-3 9.3 023 [facility] [address] [place] [address] CHEM 14 (METABOLIC PANEL) 78799 GFR Estimated 52635-3 50 mL/min/1.73 m2 023 [facility] [address] [place] [address] 93691 CHEM 14 (METABOLIC PANEL) 57504 Sodium 2951-2 139 mmol/L 023 [facility] [address] [place] [address] 40160 CHEM 14 (METABOLIC PANEL) 22630 Potassium 2823-3 4.7 mmol/L 023 [facility] [address] [place] [address] 40558 CHEM 14 (METABOLIC PANEL) 79013 Chloride 2075-0 103 mmol/L 023 [facility] [address] [place] [address] 06986 CHEM 14 (METABOLIC PANEL) 32765 Total CO2 2028-9 27 mmol/L 023 [facility] [address] [place] [address] 41730 CHEM 14 (METABOLIC PANEL) 11319 Anion Gap 1863-0 13.7 mEq/L 023 [facility] [address] [place] [address] 33375 CHEM 14 (METABOLIC PANEL) 71754 Calculated Serum Osmolality 19955-8 288 mOsm/kg 023 [facility] [address] [place] [address] 40027 CHEM 14 (METABOLIC PANEL) 30262 Albumin 79646-9 4.6 g/dL 023 [facility] [address] [place] [address] 50797 CHEM 14 (METABOLIC PANEL) 58087 Total Protein 2885-2 7.7 g/dL 023 [facility] [address] [place] [address] CHEM 14 (METABOLIC PANEL) 59446 Globulin 2336-6 3.1 g/dL 023 [facility] [address] [place] [address] CHEM 14 (METABOLIC PANEL) 29746 Albumin/Globulin Ratio 1759-0 1.5 023 [facility] [address] [place] [address] CHEM 14 (METABOLIC PANEL) 77639 ALK PHOS 6768-6 83.00 U/L 023 [facility] [address] [place] [address] CHEM 14 (METABOLIC PANEL) 53459 SGOT/AST 1920-8 23 U/L 023 [facility] [address] [place] [address] CHEM 14 (METABOLIC PANEL) 45446 SGPT/ALT 1743-4 22 U/L 023 [facility] [address] [place] [address] CHEM 14 (METABOLIC PANEL) 11110 Total Bilirubin 1975-2 0.5 mg/dL 023 [facility] [address] [place] [address] 55107 CHEM 14 (METABOLIC PANEL) 93066 Calcium 53435-0 10.0 mg/dL 023 [facility] [address] [place] [address] CHEM 14 (METABOLIC PANEL) 15147 Corrected Calcium 39742-8 9.7 mg/dL 023 [facility] [address] [place] [address] 09952 DIRECT LDL - CHOL 36276 LDL-Direct 23424-1 102 mg/dL 023 [facility] [address] [place] [address] 19556 PREALBUMIN 31233 Prealbumin 62503-4 26 mg/dL 023 [facility] [address] [place] [address] HDL - CHOL 12969 HDL 2085-9 84 mg/dL 023 [facility] [address] [place] [address] HDL - CHOL 69411 CHD 91207-4 41 % 023 [facility] [address] [place] [address] CHOLESTEROL 55269 Cholesterol 2093-3 206 mg/dL 023 [facility] [address] [place] [address] TRIGLYCERIDES 07240 Triglycerides 2571-8 134 mg/dL [facility] [address] [place] [address] TRIGLYCERIDES 46490 VLDL 59854-6 27 mg/dL [facility] [address] [place] [address] CHOLESTEROL 47310 Cholesterol 2093-3 200 mg/dL [facility] [address] [place] [address] HDL - CHOL 27989 HDL 2085-9 65 mg/dL [facility] [address] [place] [address] HDL - CHOL 84194 CHD 73682-4 33 % [facility] [address] [place] [address] TSH 45331 TSH 55393-3 1.060 uIU/mL [facility] [address] [place] [address] 11501 VITAMIN D 87577 Vitamin D 19684-6 58.7 ng/mL [facility] [address] [place] [address] 59756 Manual Diff MDIFF Neutrophils 33710-5 61.0 % [facility] [address] [place] [address] 57600 Manual Diff MDIFF Band % 38059-1 4.0 % [facility] [address] [place] [address] 70309 Manual Diff MDIFF Lymphocytes 05555-2 32.0 % [facility] [address] [place] [address] 62173 Manual Diff MDIFF Monocytes 62493-9 2.0 % [facility] [address] [place] [address] 80565 Manual Diff MDIFF Eosinophils 48907-5 0.0 % [facility] [address] [place] [address] 32333 Manual Diff MDIFF Basophils 65182-7 1.0 % [facility] [address] [place] [address] Manual Diff MDIFF Absolute Neut 56594-1 6045 /ul 0208/08 [facility] [address] [place] [address] 72575 Manual Diff MDIFF Absolute Lymph 03887-5 2976 /ul 08/08 [facility] [address] [place] [address] 35075 Manual Diff MDIFF Absolute [place] 77874-8 186 /ul 02/0 1/2 022 [facility] [address] [place] [address] Manual Diff MDIFF Platelet Estimate 9317-9 Normal [facility] [address] [place] [address] Manual Diff MDIFF Absolute Eos 63380-9 0 /ul 09/07 022 [facility] [address] [place] [address] Manual Diff MDIFF Echinocytes 7790-9 1+ [facility] [address] [place] [address] Manual Diff MDIFF Poikilocytosis 779-9 1+ 08/08 022 [facility] [address] [place] [address] Manual Diff MDIFF Absolute Baso 45487-0 93 /ul 02/0 08/08 [facility] [address] [place] [address] DIRECT LDL - CHOL 58162 LDL-Direct 36001-0 109 mg/dL [facility] [address] [place] [address] 56236 PTH 20298 PTH 2731-8 17.3 pg/mL [facility] [address] [place] [address] PREALBUMIN 47167 Prealbumin 10636-8 29 mg/dL [facility] [address] [place] [address] CHEM 14 (METABOLIC PANEL) 15947 Glucose 2345-7 118 mg/dL [facility] [address] [place] [address] 44482 CHEM 14 (METABOLIC PANEL) 70823 BUN 3094-0 11 mg/dL [facility] [address] [place] [address] 64836 CHEM 14 (METABOLIC PANEL) 82796 Creatinine 2160-0 0.9 mg/dL 022 [facility] [address] [place] [address] 91415 CHEM 14 (METABOLIC PANEL) 38033 BUN/Creat Ratio 3097-3 12.2 [facility] [address] [place] [address] 31145 CHEM 14 (METABOLIC PANEL) 48645 GFR Estimated 20043-1 77 mL/min/1.73 m2 [facility] [address] [place] [address] 00960 CHEM 14 (METABOLIC PANEL) 97649 Sodium 2951-2 139 mmol/L [facility] [address] [place] [address] 28175 CHEM 14 (METABOLIC PANEL) 11431 Potassium 2823-3 4.3 mmol/L [facility] [address] [place] [address] CHEM 14 (METABOLIC PANEL) 86928 Chloride 2075-0 105 mmol/L [facility] [address] [place] [address] CHEM 14 (METABOLIC PANEL) 05264 Total CO2 2028-9 25 mmol/L [facility] [address] [place] [address] CHEM 14 (METABOLIC PANEL) 86788 Anion Gap 1863-0 13.3 mEq/L [facility] [address] [place] [address] CHEM 14 (METABOLIC PANEL) 55297 Calculated Serum Osmolality 39659-9 288 mOsm/kg [facility] [address] [place] [address] 58570 CHEM 14 (METABOLIC PANEL) 81665 Albumin 33336-6 4.5 g/dL [facility] [address] [place] [address] 61813 CHEM 14 (METABOLIC PANEL) 57184 Total Protein 2885-2 7.5 g/dL [facility] [address] [place] [address] CHEM 14 (METABOLIC PANEL) 12445 Globulin 2336-6 3.0 g/dL [facility] [address] [place] [address] 21788 CHEM 14 (METABOLIC PANEL) 11477 Albumin/Globulin Ratio 1759-0 1.5 022 [facility] [address] [place] [address] 32395 CHEM 14 (METABOLIC PANEL) 86308 ALK PHOS 6768-6 74.00 U/L 022 [facility] [address] [place] [address] CHEM 14 (METABOLIC PANEL) 30778 SGOT/AST 1920-8 17 U/L [facility] [address] [place] [address] CHEM 14 (METABOLIC PANEL) 08800 SGPT/ALT 1743-4 18 U/L 022 [facility] [address] [place] [address] 18104 CHEM 14 (METABOLIC PANEL) 61183 Total Bilirubin 1975-2 0.4 mg/dL 022 [facility] [address] [place] [address] CHEM 14 (METABOLIC PANEL) 32818 Calcium 23592-3 9.6 mg/dL [facility] [address] [place] [address] CHEM 14 (METABOLIC PANEL) 95184 Corrected Calcium 98561-4 9.4 mg/dL [facility] [address] [place] [address] COMPLETE CBC W/ DIFF WBC 35203 WBC 6690-2 9.3 K/ul 022 [facility] [address] [place] [address] COMPLETE CBC W/ DIFF WBC 21586 RBC 789-8 4.64 M/uL [facility] [address] [place] [address] COMPLETE CBC W/ DIFF WBC 70036 Hemoglobin 718-7 15.4 g/dL [facility] [address] [place] [address] COMPLETE CBC W/ DIFF WBC 78686 Hematocrit 4544-3 45.2 % 022 [facility] [address] [place] [address] 13735 COMPLETE CBC W/ DIFF WBC 67640 MCV 787-2 97.6 fL 022 [facility] [address] [place] [address] 68356 COMPLETE CBC W/ DIFF WBC 21706 MCH 785-6 33.3 pg [facility] [address] [place] [address] 04294 COMPLETE CBC W/ DIFF WBC 86075 MCHC 786-4 34.1 g/dL 022 [facility] [address] [place] [address] COMPLETE CBC W/ DIFF WBC 26935 RDW 788-0 13.3 % 022 [facility] [address] [place] [address] 67911 COMPLETE CBC W/ DIFF WBC 43224 Platelet Count 777-3 342 K/uL 022 [facility] [address] [place] [address] 92629 COMPLETE CBC W/ DIFF WBC 81084 MPV 17728-4 9.7 fL 022 [facility] [address] [place] [address] CHEM 14 (METABOLIC PANEL) 74491 Glucose 2345-7 118 mg/dL [facility] [address] [place] [address] CHEM 14 (METABOLIC PANEL) 63468 BUN 3094-0 10 mg/dL [facility] [address] [place] [address] 22170 CHEM 14 (METABOLIC PANEL) 31560 Creatinine 2160-0 1.0 mg/dL [facility] [address] [place] [address] CHEM 14 (METABOLIC PANEL) 38504 BUN/Creat Ratio 3097-3 10.3 [facility] [address] [place] [address] CHEM 14 (METABOLIC PANEL) 38655 GFR Estimated 26249-3 60 mL/min/1.73 m2 [facility] [address] [place] [address] CHEM 14 (METABOLIC PANEL) 24879 GFR Estimated for Americans 01292-7 73 mL/min/1.73 m2 [facility] [address] [place] [address] 75796 CHEM 14 (METABOLIC PANEL) 80494 Sodium 2951-2 137 mmol/L [facility] [address] [place] [address] 40778 CHEM 14 (METABOLIC PANEL) 72079 Potassium 2823-3 4.0 mmol/L [facility] [address] [place] [address] 01099 CHEM 14 (METABOLIC PANEL) 13190 Chloride 2075-0 103 mmol/L [facility] [address] [place] [address] 87341 CHEM 14 (METABOLIC PANEL) 95695 Total CO2 2028-9 27 mmol/L [facility] [address] [place] [address] 89303 CHEM 14 (METABOLIC PANEL) 28261 Calculated Serum Osmolality 93391-4 284 mOsm/kg [facility] [address] [place] [address] 06113 CHEM 14 (METABOLIC PANEL) 06665 Anion Gap 1863-0 11.0 mEq/L [facility] [address] [place] [address] CHEM 14 (METABOLIC PANEL) 59142 Albumin 64226-5 4.6 g/dL [facility] [address] [place] [address] 87654 CHEM 14 (METABOLIC PANEL) 78221 Total Protein 2885-2 7.7 g/dL [facility] [address] [place] [address] 85306 CHEM 14 (METABOLIC PANEL) 90492 Globulin 2336-6 3.1 g/dL 021 [facility] [address] [place] [address] CHEM 14 (METABOLIC PANEL) 28955 Albumin/Globulin Ratio 1759-0 1.5 021 [facility] [address] [place] [address] CHEM 14 (METABOLIC PANEL) 08879 ALK PHOS 6768-6 77.00 U/L 021 [facility] [address] [place] [address] CHEM 14 (METABOLIC PANEL) 05461 SGOT/AST 1920-8 14 U/L 021 [facility] [address] [place] [address] CHEM 14 (METABOLIC PANEL) 01764 SGPT/ALT 1743-4 19 U/L 021 [facility] [address] [place] [address] CHEM 14 (METABOLIC PANEL) 49351 Total Bilirubin 1975-2 0.5 mg/dL 021 [facility] [address] [place] [address] CHEM 14 (METABOLIC PANEL) 16080 Calcium 39824-7 9.9 mg/dL 021 [facility] [address] [place] [address] CHEM 14 (METABOLIC PANEL) 14984 Corrected Calcium 82686-0 9.6 mg/dL 021 [facility] [address] [place] [address] COMPLETE CBC W/ DIFF WBC 87077 WBC 6690-2 10.7 K/ul 021 [facility] [address] [place] [address] COMPLETE CBC W/ DIFF WBC 74374 RBC 789-8 4.67 M/uL 021 [facility] [address] [place] [address] COMPLETE CBC W/ DIFF WBC 33070 Hemoglobin 718-7 15.6 g/dL 021 [facility] [address] [place] [address] COMPLETE CBC W/ DIFF WBC 87614 Hematocrit 4544-3 48.0 % 021 [facility] [address] [place] [address] COMPLETE CBC W/ DIFF WBC 20303 MCV 787-2 102.8 fL 021 [facility] [address] [place] [address] COMPLETE CBC W/ DIFF WBC 14648 MCH 785-6 33.3 pg 021 [facility] [address] [place] [address] COMPLETE CBC W/ DIFF WBC 65304 MCHC 786-4 32.4 g/dL 021 [facility] [address] [place] [address] COMPLETE CBC W/ DIFF WBC 22787 RDW 788-0 14.8 % 021 [facility] [address] [place] [address] COMPLETE CBC W/ DIFF WBC 69949 Platelet Count 777-3 365 K/uL 021 [facility] [address] [place] [address] COMPLETE CBC W/ DIFF WBC 57157 MPV 49790-8 10.2 fL 021 [facility] [address] [place] [address] 85369 COMPLETE CBC W/ DIFF WBC 45677 Neutrophils % 770-8 61.7 % 021 [facility] [address] [place] [address] 42182 COMPLETE CBC W/ DIFF WBC 75150 Lymphocytes % 736-9 32.3 % 021 [facility] [address] [place] [address] 33312 COMPLETE CBC W/ DIFF WBC 41509 Monocytes % 5905-5 4.2 % 021 [facility] [address] [place] [address] 09502 COMPLETE CBC W/ DIFF WBC 60520 Eosinophils % 713-8 0.6 % 021 [facility] [address] [place] [address] 90246 COMPLETE CBC W/ DIFF WBC 46681 Basophils% 706-2 1.2 % 021 [facility] [address] [place] [address] 83486 COMPLETE CBC W/ DIFF WBC 43389 Absolute Neutrophil 751-8 6602 /ul 021 [facility] [address] [place] [address] 52031 COMPLETE CBC W/ DIFF WBC 11648 Absolute Lymphocyte 54777-0 3456 /ul 021 [facility] [address] [place] [address] 29557 COMPLETE CBC W/ DIFF WBC 26173 Absolute Monocyte 742-7 449 /ul 021 [facility] [address] [place] [address] 54854 COMPLETE CBC W/ DIFF WBC 64594 Absolute Eosinophil 711-2 64 /ul 021 [facility] [address] [place] [address] 31537 COMPLETE CBC W/ DIFF WBC 17960 Absolute Basophil 704-7 128 /ul [facility] [address] [place] [address] 00906 VITAMIN B-12 23545 Vitamin B12 2132-9 435 pg/mL 10/09 021 [facility] [address] [place] [address] 29240 Hemoccult Screening Immunoassay G0328 Fecal Occult Blood Test (FOBT) Screening 66379-9 Negative [facility] [address] [place] [address] NO ORDERS HEMOCCULT NO ORDERS HEMOCCULT NO ORDERS FOBT 0.00 021 [facility] [address] [place] [address] TRIGLYCERIDES 55555 Triglycerides 2571-8 132 mg/dL 020 [facility] [address] [place] [address] TRIGLYCERIDES 62777 VLDL 23647-4 26 mg/dL 020 [facility] [address] [place] [address] 68367 VITAMIN D 47582 Vitamin D 58780-7 14.7 ng/mL 020 [facility] [address] [place] [address] 16089 PTH 22042 PTH 2731-8 31.6 pg/mL 020 [facility] [address] [place] [address] 00978 HDL - CHOL 29075 HDL 2085-9 58 mg/dL 020 [facility] [address] [place] [address] 16850 HDL - CHOL 34084 CHD 59897-4 29 % 020 [facility] [address] [place] [address] 60087 VITAMIN B-12 18525 Vitamin B12 2132-9 462 pg/mL 12/05 020 [facility] [address] [place] [address] 43350 CHEM 14 (METABOLIC PANEL) 42156 Glucose 2345-7 147 mg/dL 020 [facility] [address] [place] [address] 20169 CHEM 14 (METABOLIC PANEL) 67358 BUN 3094-0 10 mg/dL 020 [facility] [address] [place] [address] CHEM 14 (METABOLIC PANEL) 65267 Creatinine 2160-0 1.0 mg/dL 020 [facility] [address] [place] [address] 41407 CHEM 14 (METABOLIC PANEL) 53128 BUN/Creat Ratio 3097-3 10.4 020 [facility] [address] [place] [address] CHEM 14 (METABOLIC PANEL) 36754 GFR Estimated 21729-0 62 mL/min/1.73 m2 020 [facility] [address] [place] [address] CHEM 14 (METABOLIC PANEL) 42999 GFR Estimated for Americans 35895-3 75 mL/min/1.73 m2 020 [facility] [address] [place] [address] CHEM 14 (METABOLIC PANEL) 64508 Sodium 2951-2 137 mmol/L 020 [facility] [address] [place] [address] CHEM 14 (METABOLIC PANEL) 25323 Potassium 2823-3 4.1 mmol/L 020 [facility] [address] [place] [address] 17124 CHEM 14 (METABOLIC PANEL) 11251 Chloride 2075-0 104 mmol/L 020 [facility] [address] [place] [address] 08791 CHEM 14 (METABOLIC PANEL) 89509 Total CO2 2028-9 25 mmol/L 020 [facility] [address] [place] [address] 28734 CHEM 14 (METABOLIC PANEL) 54329 Anion Gap 1863-0 12.1 mEq/L 020 [facility] [address] [place] [address] 09408 CHEM 14 (METABOLIC PANEL) 24391 Calculated Serum Osmolality 53395-0 286 mOsm/kg 020 [facility] [address] [place] [address] 45981 CHEM 14 (METABOLIC PANEL) 99705 Albumin 39171-2 4.3 g/dL 020 [facility] [address] [place] [address] CHEM 14 (METABOLIC PANEL) 50320 Total Protein 2885-2 7.7 g/dL 020 [facility] [address] [place] [address] 73025 CHEM 14 (METABOLIC PANEL) 21943 Globulin 2336-6 3.4 g/dL 020 [facility] [address] [place] [address] CHEM 14 (METABOLIC PANEL) 23781 Albumin/Globulin Ratio 1759-0 1.3 020 [facility] [address] [place] [address] CHEM 14 (METABOLIC PANEL) 82361 ALK PHOS 6768-6 93.00 U/L 020 [facility] [address] [place] [address] CHEM 14 (METABOLIC PANEL) 27304 SGOT/AST 1920-8 14 U/L 020 [facility] [address] [place] [address] CHEM 14 (METABOLIC PANEL) 10407 SGPT/ALT 1743-4 19 U/L 020 [facility] [address] [place] [address] CHEM 14 (METABOLIC PANEL) 54902 Total Bilirubin 1975-2 0.5 mg/dL 020 [facility] [address] [place] [address] CHEM 14 (METABOLIC PANEL) 89014 Calcium 34240-7 9.6 mg/dL 020 [facility] [address] [place] [address] CHEM 14 (METABOLIC PANEL) 14221 Corrected Calcium 35478-3 9.5 mg/dL 020 [facility] [address] [place] [address] TSH 65599 TSH 78305-0 1.970 uIU/mL 020 [facility] [address] [place] [address] CHOLESTEROL 41774 Cholesterol 2093-3 200 mg/dL 020 [facility] [address] [place] [address] [id number]-[id number] BIN 4548-4 Glyco HGB A1C 51308-3 4.5 % 020 [facility] [address] [place] [address] [id number]-[id number] BIN 4548-4 eAG 84717-7 82 mg/dL 020 [facility] [address] [place] [address] Homocysteine 81973 Homocysteine 03448-4 10.70 umol/L 020 [facility] [address] [place] [address] MAGNESIUM 50094 Magnesium 08798-4 2.1 mg/dL 020 [facility] [address] [place] [address] URIC ACID 47696 Uric Acid 3084-1 4.1 mg/dL 020 [facility] [address] [place] [address] DIRECT LDL - CHOL 37293 LDL-Direct 33904-8 113 mg/dL 020 [facility] [address] [place] [address] COMPLETE CBC W/ DIFF WBC 23288 WBC 6690-2 9.6 K/ul 020 [facility] [address] [place] [address] COMPLETE CBC W/ DIFF WBC 98290 RBC 789-8 4.82 M/uL 020 [facility] [address] [place] [address] COMPLETE CBC W/ DIFF WBC 80444 Hemoglobin 718-7 15.9 g/dL 020 [facility] [address] [place] [address] COMPLETE CBC W/ DIFF WBC 02857 Hematocrit 4544-3 47.0 % 020 [facility] [address] [place] [address] COMPLETE CBC W/ DIFF WBC 02563 MCV 787-2 97.4 fL 020 [facility] [address] [place] [address] 40085 COMPLETE CBC W/ DIFF WBC 31760 MCH 785-6 32.9 pg 020 [facility] [address] [place] [address] 19693 COMPLETE CBC W/ DIFF WBC 35312 MCHC 786-4 33.8 g/dL 020 [facility] [address] [place] [address] 59601 COMPLETE CBC W/ DIFF WBC 84896 RDW 788-0 13.9 % 020 [facility] [address] [place] [address] 14938 COMPLETE CBC W/ DIFF WBC 84077 Platelet Count 777-3 367 K/uL 020 [facility] [address] [place] [address] 18855 COMPLETE CBC W/ DIFF WBC 83455 MPV 38561-5 9.6 fL 020 [facility] [address] [place] [address] 91783 COMPLETE CBC W/ DIFF WBC 48488 Neutrophils % 770-8 68.0 % 020 [facility] [address] [place] [address] 22892 COMPLETE CBC W/ DIFF WBC 64793 Lymphocytes % 736-9 26.0 % 020 [facility] [address] [place] [address] 95170 COMPLETE CBC W/ DIFF WBC 02385 Monocytes % 5905-5 4.8 % 020 [facility] [address] [place] [address] COMPLETE CBC W/ DIFF WBC 43152 Eosinophils % 713-8 0.2 % 020 [facility] [address] [place] [address] 86526 COMPLETE CBC W/ DIFF WBC 87040 Basophils% 706-2 1.0 % 020 [facility] [address] [place] [address] 47647 COMPLETE CBC W/ DIFF WBC 35720 Absolute Neutrophil 751-8 6528 /ul 020 [facility] [address] [place] [address] 55178 COMPLETE CBC W/ DIFF WBC 23528 Absolute Lymphocyte 59538-3 2496 /ul 020 [facility] [address] [place] [address] 94827 COMPLETE CBC W/ DIFF WBC 61231 Absolute Monocyte 742-7 461 /ul 020 [facility] [address] [place] [address] 44052 COMPLETE CBC W/ DIFF WBC 10731 Absolute Eosinophil 711-2 19 /ul 020 [facility] [address] [place] [address] 01141 COMPLETE CBC W/ DIFF WBC 95424 Absolute Basophil 704-7 96 /ul 020 [facility] [address] [place] [address] 66533 PREALBUMIN 55766 Prealbumin 23210-4 23 mg/dL 020 [facility] [address] [place] [address] 07925 MICROALBUMIN (URINE) 99439 Microalbumin 18411-5 2.0 mg/dL 020 [facility] [address] [place] [address] 88056 MICROALBUMIN (URINE) 62625 Microalbumin/Crea tinine Ratio 92850-6 11 MCG/MGCREAT 020 [facility] [address] [place] [address] 25356 MICROALBUMIN (URINE) 02527 Urine Creatinine 2161-8 181.00 mg/dL 020 [facility] [address] [place] [address] 37631 FOLATE 98473 Folate 2284-8 19.6 ng/mL 020 [facility] [address] [place] [address] 52441 Procedures Procedure Codes Date Urinalysis, dip stick CPT-4: 05215 06/09/2023 Urinalysis, dip stick Leukocytes:/Small, Nitrite:/Negative, Urobilinogen:/0.2, Protein:/Negative, Ph:/5.0, Blood:/Negative, Specific Linden:/1.020, Ketone:/Negative, Bilirubin:/Small, Glucose:/Negative CPT-4: 03774Ayflaqa 06/09/2023 Smoking and tobacco use cess ation counseling visit > 10 MIN CPT-4: 82767 04/28/2023 Electrocardiogram CPT-4: 92839 04/28/2023 Annual Wellness Visit (Subsequent Visit) CPT-4: G0439 04/28/2023 Advance Care Planning discussed and documented C PT-4: 1123F 04/28/2023 MED LIST DOCD IN [facility] CPT-4: 1159F 04/28/2023 RVW MEDS BY RX/DR IN RD CPT-4: 1160F 2022 Amnt pain noted; pain prsnt CPT-4: 1125F 04/08 Advance Care Planning discussed and documented C PT-4: 112F 04/28/2023 HOSPC SERV DUR [facility] ([id number]) CPT-4: M1159 0 04/28/2023 LEVEL OF ACTIVITY ASSESS CPT-4: 1003F 023 Presence or Absence of Urinary Incontinence Asse ss CPT-4: 1090F 04/28/2023 Urinary incontinence plan of care documented CPT -4: 0509F 04/28/2023 Electrocardiogram Finding/Abnormal: _Sinus Rhythm -Short GA syndrome Jose = 112-Right axis -consider right ventricular hypertrophy. -Nonspecific ST depression + Nonspecific T-abnormality. CPT-4: 66771Fznbxce 04/28/2023 Smoking and tobacco use cess ation counseling visit > 10 MIN CPT-4: 46861 04/28/2023 Documentation of patient hav ing a [...] leakage in the past 6 months?/No CPT-4: IBCUndiana Monitoring Physical Activity Do you exercise daily?/Yes (plan required)/Continued exercise or physical activity at current level recommended CPT-4: MPAUnknown 03/08/2023 Tobacco Assessment/Screening Tobacco Use/Current user of tobacco (Complete cessation counseling)/Cessation advice and [phone] number given, Tobacco Use/Current user of tobacco (Complete cessation counseling)/Motivational interviewing CPT-4: TCAUnknotrav 03/08/2023 Smoking and tobacco use cess ation counseling visit 3-10 minutes Tobacco counseling 3-10 minutes:/Patient is competent and alert, Plan:/Cessation advice and [phone] number given, Plan:/Motivational interviewing CPT-4: 27462Lofajcq 03/08/20 23 Fall Risk Assessment Any problems with balance or walking?/No, Has there been a fall with injury in the last year?/No, Two or more falls in the past year?/No, Plan:/Monitor gait and balance PRN, no current action needed CPT-4: DFRAUnknoalexn 03/08/2023 Pain Screening Do you suffer from any painful conditions?/No CPT-4: PASUnknotrav 03/08/20 23 Patient Health Questionnaire Little interest [...] Negative for depression- NO PLAN NEEDED CPT-4: DPHQUndiana 03/08/2023 Improving Bladder Control CPT-4: IBC 2021 Monitoring Physical Activity CPT-4: MPA 07/2022 Pain Screening CPT-4: PAS 12/16/2021 Annual Wellness Visit (Subsequent Visit) CPT-4: G0439 12/16/2021 Fall Risk Assessment SNOMED CT: 31473333 4 CPT-4: DFRA 12/16/2021 Annual Wellness Visit [...] with pt and/or caregiver. Copy given. CPT-4: T5584Yctcsln 12/16/2021 Improving Bladder Control Have you had urine leakage in the past 6 months?/No CPT-4: IBCUnknowfawn Monitoring Physical Activity Do you exercise daily?/Yes (plan required)/Exercise prescribed CPT-4: MPAUnknown 12/16/2021 Fall Risk Assessment Has there been a fall with injury in the last year?/No, Two or more falls in the past year?/No, Plan:/Monitor gait and balance PRN, no current action needed [facility] CT: 652111000 CPT-4: DFRAUnknown 12/16/2021 Pain Screening Do you suffer from any painful conditions?/No CPT-4: PASUnknown 12/17/19 Smoking and tobacco use cess ation counseling visit 3-10 minutes Tobacco counseling 3-10 minutes:/Patient is competent and alert, Counseling session narrative (optional):/Pt remains indifferent to quitting, Plan:/Cessation advice and [phone] number given CPT-4: 84827Tiumfjj 12/16/2021 Maltreatment Assessment 1. Have you relied on [...] 09/06/2021 Patient Health Questionnaire CPT-4: DPHQ 11/2020 Patient [...] balance PRN, no current action needed CPT-4: E8484Kcyakpk 021 Advance Care Planning Time spent discussing advance directives [...] of tobacco (Complete cessation counseling)/Cessation advice and [phone] number given, Tobacco Use/Current user of tobacco (Complete cessation counseling)/Motivational interviewing CPT-4: TCAUnknown 12/16/2020 Smoking and tobacco use cess ation counseling visit 3-10 minutes Tobacco counseling 3-10 minutes:/Patient is competent and alert, Plan:/Cessation advice and [phone] number given, Plan:/Motivational interviewing CPT-4: 74243Nfmsres 12/17/19 21 Hypertension CPT-4: HTN 10/27/2020 Hypertension Hypertension Follow Up Plan/Lifestyle modification including limit tobacco exposure, Hypertension Follow Up Plan/Lifestyle modification including reduce salt intake CPT-4: HTNUnknown 10/27/2020 Maltreatment Assessment 1. Have you relied on [...] MTAUnknown 09/11/2020 Fall Risk Assessment SNOMED CT: 01167262 4 CPT-4: DFRA 04/21/2020 Fall Risk Assessment Two or more falls in the past year?/No, Has there been a fall with injury in the last year?/No, Plan:/Monitor gait and balance PRN, no current action needed SNOMED CT: 930544032 CPT-4: DFRAUnknown 04/21/2020 Tobacco Assessment/Screening CPT-4: TCA [...] 03/02/2020 Hypertension CPT-4: HTN 12/05/2019 Electrocardiogram CPT-4: 84165 12/05/2019 Tobacco Assessment/Screening CPT-4: TCA Urinalysis, dip stick CPT-4: 89341 12/05/2019 Elder Abuse Screening CPT-4: EAS 12/05/2019 Eldon Nasim Assessment CPT-4: DSWA 11/07 Tobacco Assessment/Screening Tobacco Use/Current user of tobacco CPT-4: TCAUnknown 12/05/2019 Eldon Nasim Assessment /05/16 CPT-4: DSWAUnknown 12/05/2019 Elder Abuse Screening Patient screened for abuse or neglect?/Yes, no evidence of abuse/neglect found, Action taken for suspected abuse/neglect?/N/A, Patient screened to determine if there is evidence of abuse or neglect:/No further action needed at this time, rescreen in one year. CPT-4: EASUnknown 12/05/2019 Electrocardiogram Finding/Abnormal: poor R-wave ant., nonspec. ST depr., HR 78; CPT-4: 52294Pachalm 12/05/2019 Urinalysis, dip stick Leukocytes:/Negative, Nitrite:/Negative, Urobilinogen:/0.2, Protein:/Negative, Ph:/5.0, Blood:/Trace, Specific Linden:/1.020, Ketone:/15, Bilirubin:/Small, Glucose:/Negative CPT-4: 14952Cdfmzmw 12/05/2019 Hypertension Hypertension Follow Up Plan/Repeat BP measurement within one month, Hypertension Follow Up Plan/Lifestyle modification including reduce salt intake CPT-4: HTNUnknown 12/05/2019 External Mammogram CPT-4: EMAM Unknown Fecal Occult Blood Test (FOBT) Screening CPT-4: G0328 Unknown Fecal Occult Blood Test (FOBT) Screening CPT-4: G0328 Unknown Gynecology Referral SNOMED CT: 268525135 CPT-4: R14 Unknown External Mammogram CPT-4: EMAM Unknown R8V-Hksdknxlnucdjrx CPT-4: 16335 Unknown Fecal Occult Blood Test (FOBT) Screening CPT-4: G0328 Unknown Vital Signs Date Vital 06/09/2023 Blood Pressure 1: 136/84 Code: 8480-6 BMI: 20.2 Code: 11446-6 Heart Rate 1: 90 bpm Height: 5'7 Code: 8302-2 Respiratory Rate: 16 bpm SpO2: 98% Temperature: 36.4 (C) / 97.5 (F) Weight: 129 lbs Code: 75575-1 04/28/2023 Blood Pressure 1: 136/88 Code: 8480-6 BMI: 20.9 Code: 13744-1 Heart Rate 1: 78 bpm Height: 5'7 Code: 8302-2 Respiratory Rate: 16 bpm SpO2: 98% Temperature: 36.5 (C) / 97.7 (F) Weight: 133 lbs 6 oz Code: 32225-0 03/08/2023 Blood Pressure 1: 140/86 Code: 8480-6 BMI: 21.6 Code: 37921-9 Heart Rate 1: 98 bpm Height: 5'7 Code: 8302-2 Respiratory Rate: 16 bpm SpO2: 98% Temperature: 36.6 (C) / 97.9 (F) Weight: 138 lbs 3 oz Code: 53616-3 12/16/2021 Blood Pressure 1: 148/106 Code: 8480-6 BMI: 23.2 Code: 58888-6 Heart Rate 1: 106 bpm Height: 5'7 Code: 8302-2 Respiratory Rate: 16 bpm SpO2: 98% Temperature: 36.2 (C) / 97.2 (F) Weight: 148 lbs 3 oz Code: 25702-9 10/07/2021 Blood Pressure 1: 156/92 Code: 8480-6 BMI: 22.7 Code: 19531-7 Heart Rate 1: 110 bpm Height: 5'7 Code: 8302-2 Respiratory Rate: 18 bpm SpO2: 98% Temperature: 36.4 (C) / 97.5 (F) Weight: 144 lbs 12 oz Code: 68053-5 09/06/2021 Blood Pressure 1: 178/106 Code: 8480-6 BMI: 22.8 Code: 85325-8 Heart Rate 1: 108 bpm Height: 5'7 Code: 8302-2 Respiratory Rate: 18 bpm SpO2: 99% Temperature: 36.1 (C) / 97.0 (F) Weight: 145 lbs 9 oz Code: 75484-3 05/10/2021 BMI: 21.6 Code: 02458-7 Height: 5'7 Code : 8302-2 Weight: 138 lbs Code: 81579-7 02/03/2021 Blood Pressure 1: 122/80 Code: 8480-6 BMI: 22.9 Code: 08913-4 Heart Rate 1: 97 bpm Height: 5'7 Code: 8302-2 Respiratory Rate: 18 bpm SpO2: 99% Temperature: 36.7 (C) / 98.1 (F) Weight: 146 lbs Code: 43843-3 12/16/2020 Blood Pressure 1: 154/96 Code: 8480-6 BMI: 23.8 Code: 00186-6 Heart Rate 1: 97 bpm Height: 5'7 Code: 8302-2 Respiratory Rate: 18 bpm SpO2: 98% Temperature: 36.7 (C) / 98.1 (F) Weight: 152 lbs Code: 01272-4 10/07/2020 Blood Pressure 1: 146/96 Code: 8480-6 Blood Pressure 1: 154/92 Code: 8480-6 BMI: 23.8 Code: 85110-6 Heart Rate 1: 99 bpm Height: 5'7 Code: 8302-2 Respiratory Rate: 18 bpm SpO2: 99% Temperature: 36.3 (C) / 97.3 (F) Weight: 152 lbs Code: 36555-2 05/15/2020 Weight: 137 lbs Code : 39116-7 12/05/2019 Blood Pressure 1: 140/90 Code: 8480-6 BMI: 24.9 Code: 13852-6 Heart Rate 1: 84 bpm Height: 5'7 Code: 8302-2 Respiratory Rate: 18 bpm SpO2: 98% Temperature: 36.2 (C) / 97.2 (F) Weight: 159 lbs Code: 08282-1 Reason For Visit Reason For Visit Effective Dates Notes CAD 06/09/2023 weight loss 06/09/2023 Interim health update 06/09/2023 COPD 06/09/2023 annual wellness visit 04/28/2023 bipolar disorder 03/08/2023 CAD 03/08/2023 hyperlipidemia disease 03/08/2023 Interim health update 03/08/2023 Interim health update 01/05/2022 dermatologic complaint 01/05/2022 bipolar disorder 12/16/2021 CAD 12/16/2021 COPD 10/07/2021 CAD 10/07/2021 anxiety 09/06/2021 post traumatic stress disorder 09/06/2021 bipolar disorder 05/10/2021 Interim health update 05/10/2021 chest pain/pressure 03/02/2021 COPD 03/02/2021 bipolar disorder 03/02/2021 Interim health update 03/02/2021 chest pain/pressure 02/03/2021 COPD 02/03/2021 bipolar disorder 02/03/2021 Interim health update 02/03/2021 chest pain/pressure 01/22/2021 COPD 01/22/2021 bipolar disorder 01/22/2021 Interim health update 01/22/2021 COPD 12/16/2020 bipolar disorder 12/16/2020 Interim health update 12/16/2020 COPD 10/27/2020 bipolar disorder 10/27/2020 COPD 10/07/2020 bipolar disorder 10/07/2020 COPD 09/11/2020 bipolar disorder 09/11/2020 COPD 07/24/2020 bipolar disorder 07/24/2020 COPD 06/26/2020 bipolar disorder 06/26/2020 COPD 05/15/2020 bipolar disorder 05/15/2020 COPD 04/21/2020 bipolar disorder 04/21/2020 COPD 03/02/2020 bipolar disorder 03/02/2020 COPD 12/05/2019 bipolar disorder 12/05/2019 Encounters Encounter Performer Location Location Address Codes Date ([id number]) Home or Residence Visit Est Pt - [...] for malignant neoplasm of cervix[ICD10: Z12.4] [facility] [address] [place] [address] 36358 CPT-4: 06290 3 (G0439) Annual Wellness Visit (Subsequent Visit) Diagnosis: Encounter for general adult medical examination with abnormal findings[ICD10: Z00.01] Diagnosis: (Z12.11-V76.51) Encounter for screening for malignant neoplasm of colon[ICD10: Z12.11] [facility] [address] [place] [address] 00843 CPT-4: G0439 3 (63803) Home or Residence Visit Est Pt - Moderate Level, 40 mins Diagnosis: CAD (coronary artery disease)[ICD10: I25.10] Diagnosis: Hyperlipidemia[ICD1 0: E78.5] Diagnosis: COPD (chronic obstructive pulmonary disease)[ICD10: J44.9] Diagnosis: (F17.210-305.1) Nicotine dependence, cigarettes, uncomplicated[ICD10 : F17.210] Diagnosis: Bipolar I disorder, most recent episode (or current) manic[ICD10: F31.10] Diagnosis: Cat bite of hand[ICD10: S61.459A] Diagnosis: Tinea cruris[ICD10: B35.6] Diagnosis: Encounter for screening[ICD10: Z13.9] Diagnosis: (Z13.1-V77.1) Encounter for screening for diabetes mellitus[ICD10: Z13.1] Diagnosis: (Z12.11-V76.51) Encounter for screening for malignant neoplasm of colon[ICD10: Z12.11] Diagnosis: Vitamin D deficiency[ICD10: E55.9] [facility] [address] [place], [place] [address] CPT-4: 26693 3 (88394) Other Reason/Patient not seen Diagnosis: Patient not seen[ICD10: UXZ.01] [facility] [address] [place] [address] 52139 CPT-4: 71837 2 (42780) (EST PT) EXPANDED PROBLEM FOCUSED TELEHEALTH VISIT Diagnosis: Bitten by cat, initial encounter[ICD10: W55.01XA] Diagnosis: Cat bite of hand[ICD10: S61.459A] [facility] [address] [place] [address] 65111 CPT-4: 65580 2 (21149) HOME VISIT EST PATIENT Diagnosis: COPD (chronic obstructive pulmonary disease)[ICD10: J44.9] Diagnosis: Tobacco abuse[ICD10: Z72.0] Diagnosis: CAD (coronary artery disease)[ICD10: I25.10] Diagnosis: Hyperlipidemia[ICD1 0: E78.5] Diagnosis: Vitamin D deficiency[ICD10: E55.9] Diagnosis: Elevated blood pressure reading[ICD10: R03.0] Diagnosis: (Z00.00-V70.9) Encounter for general adult medical examination without abnormal findings[ICD10: Z00.00] Diagnosis: (Z12.31-V76.12) Encounter for screening mammogram for malignant neoplasm of breast[ICD10: Z12.31] [facility] [address] [place], [place] [id number] CPT-4: 08784 2 (11062) HOME VISIT EST PATIENT Diagnosis: COPD (chronic obstructive pulmonary disease)[ICD10: J44.9] Diagnosis: Tobacco abuse[ICD10: Z72.0] Diagnosis: CAD (coronary artery disease)[ICD10: I25.10] Diagnosis: Hyperlipidemia[ICD1 0: E78.5] Diagnosis: Vitamin D deficiency[ICD10: E55.9] [facility] [address] [place] [address] CPT-4: 38956 2 (79773) HOME VISIT EST PATIENT Diagnosis: Bipolar I disorder, most recent episode (or current) manic[ICD10: F31.10] Diagnosis: COPD (chronic obstructive pulmonary disease)[ICD10: J44.9] Diagnosis: Tobacco abuse[ICD10: Z72.0] Diagnosis: Posttraumatic stress disorder[ICD10: F43.10] Nican[facility] Wallacetejal [facility] [address] [place], [place] [address] CPT-4: 54612 2 (60354) (EST PT) DETAILED TELEHEALTH VISIT Diagnosis: Bipolar I disorder, most recent episode (or current) manic[ICD10: F31.10] [facility] [address] [place], [place] [address] CPT-4: 60282 1 (25502) (EST PT) EXPANDED PROBLEM FOCUSED TELEHEALTH VISIT Diagnosis: Bipolar I disorder, most recent episode (or current) manic[ICD10: F31.10] Diagnosis: Pain in right lower leg[ICD10: M79.661] Diagnosis: (Z12.31-V76.12) Encounter for screening mammogram for malignant neoplasm of breast[ICD10: Z12.31] [facility] [address] [place], [place] [address] CPT-4: 89920 1 HOME VISIT EST PATIENT Diagnosis: Chest pain in adult[ICD10: R07.9] Diagnosis: History of heart attack[ICD10: I25.2] Diagnosis: Abnormal EKG[ICD10: R94.31] Diagnosis: Pain in right lower leg[ICD10: M79.661] Diagnosis: Status post fracture of tibia[ICD10: Z87.81] [facility] [address] [place] [address] CPT-4: 89828 1 (94097) (EST PT) DETAILED TELEHEALTH VISIT Diagnosis: Chest pain in adult[ICD10: R07.9] Diagnosis: History of heart attack[ICD10: I25.2] Diagnosis: Obsessive-compulsiv e disorder[ICD10: F42.9] Diagnosis: COPD (chronic obstructive pulmonary disease)[ICD10: J44.9] [facility] [address] [place], [place] [address] CPT-4: 40607 1 HOME VISIT EST PATIENT Diagnosis: Elevated blood pressure reading in office without diagnosis of hypertension[ICD10: R03.0] Diagnosis: Bipolar I disorder, most recent episode (or current) manic[ICD10: F31.10] Diagnosis: COPD (chronic obstructive pulmonary disease)[ICD10: J44.9] Diagnosis: (F17.210-305.1) Nicotine dependence, cigarettes, uncomplicated[ICD10 : F17.210] Diagnosis: (Z00.01-V70.0) Encounter for general adult medical examination with abnormal findings[ICD10: Z00.01] Diagnosis: (Z12.31-V76.12) Encounter for screening mammogram for malignant neoplasm of breast[ICD10: Z12.31] [facility] [address] [place], [place] [address] CPT-4: 30093 1 (78944) (EST PT) PROBLEM FOCUSED TELEHEALTH VISIT Diagnosis: COPD (chronic obstructive pulmonary disease)[ICD10: J44.9] Diagnosis: Elevated blood pressure reading in office with white coat syndrome, without diagnosis of hypertension[ICD10: R03.0] Diagnosis: (Z12.31-V76.12) Encounter for screening mammogram for malignant neoplasm of breast[ICD10: Z12.31] [facility] Office [address] [place] [address] CPT-4: 30759 1 HOME VISIT EST PATIENT Diagnosis: Right hand pain[ICD10: M79.641] Diagnosis: Social phobia[ICD10: F40.10] Diagnosis: Elevated blood pressure reading in office with white coat syndrome, without diagnosis of hypertension[ICD10: R03.0] Diagnosis: COPD (chronic obstructive pulmonary disease)[ICD10: J44.9] Diagnosis: Cough[ICD10: R05] Diagnosis: Vitamin D deficiency[ICD10: E55.9] Diagnosis: (Z12.31-V76.12) Encounter for screening mammogram for malignant neoplasm of breast[ICD10: Z12.31] [facility] [address] [place] [address] CPT-4: 18229 1 (G9487) REMOTE E/M EST. PT 15MINS (G9487) Diagnosis: Bipolar I disorder, most recent episode (or current) manic[ICD10: F31.10] Diagnosis: (Z12.31-V76.12) Encounter for screening mammogram for malignant neoplasm of breast[ICD10: Z12.31] Diagnosis: (Z12.11-V76.51) Encounter for screening for malignant neoplasm of colon[ICD10: Z12.11] Diagnosis: Encounter for screening[ICD10: Z13.9] [facility] [address] [place] [address] CPT-4: G9487 1 (G9487) REMOTE E/M EST. PT 15MINS (G9487) Diagnosis: COPD (chronic obstructive pulmonary disease)[ICD10: J44.9] Diagnosis: Bipolar I disorder, most recent episode (or current) manic[ICD10: F31.10] Diagnosis: (Z12.11-V76.51) Encounter for screening for malignant neoplasm of colon[ICD10: Z12.11] [facility] [address] [place] [address] CPT-4: G9487 0 (G9487) REMOTE E/M EST. PT 15MINS (G9487) Diagnosis: COPD (chronic obstructive pulmonary disease)[ICD10: J44.9] Diagnosis: Bipolar I disorder, most recent episode (or current) manic[ICD10: F31.10] [facility] [address] [place] [address] CPT-4: G9487 0 (70869) (EST PT) EXPANDED PROBLEM FOCUSED TELEHEALTH VISIT Diagnosis: COPD (chronic obstructive pulmonary disease)[ICD10: J44.9] Diagnosis: Bipolar I disorder, most recent episode (or current) manic[ICD10: F31.10] [facility] [address] [place] [address] CPT-4: 83796 0 (19256) (EST PT) EXPANDED PROBLEM FOCUSED TELEHEALTH VISIT Diagnosis: COPD (chronic obstructive pulmonary disease)[ICD10: J44.9] Diagnosis: Bipolar I disorder, most recent episode (or current) manic[ICD10: F31.10] Diagnosis: Encounter for screening[ICD10: Z13.9] [facility] [address] [place] [address] CPT-4: 61306 0 (G9487) REMOTE E/M EST. PT 15MINS (G9487) [...] colon[ICD10: Z12.11] Diagnosis: (F17.210-305.1) Nicotine dependence, cigarettes, uncomplicated[ICD10 : F17.210] [facility] [address] [place], [place] [address] CPT-4: G9487 0 (98699) No answer/Patient not seen Diagnosis: Patient not seen[ICD10: UXZ.01] [facility] [address] [place], [place] [address] CPT-4: 67133 0 HOME VISIT NEW PATIENT Diagnosis: History of [...] F43.10] Diagnosis: Dissociative identity disorder[ICD10: F44.81] [facility] [address] [place], [place] [address] CPT-4: 97712 0 Plan of Care Planned Activity Notes [...] by gynecology 06/07/2023, u/s pelvic with transvaginal 06/16)supervisor doping note reviewed 06/09/2023 Appointment: Frances Boswell WPtel: [address] [place] [address] E410 06/09/2023 Patient Education: Heart Disease Completed 06/09/2023 Patient Education: Patient Medication Summary Completed 06/09/2023 Patient Education: COPD Completed 1 08/09/2022 Patient Education: Patient Medication Summary Completed 05/01/2023 Care Plan: External Echocardiography Ordered 05/01/2023 Visit Plan: Visit time spent involved in [...] encouraged to complete FOBT left previously) 04/28/2023 Appointment: Frances Boswell WPtel: [phone] E410 04/28/2023 Patient Education: Patient Medication Summary Completed 04/28/2023 Patient Education: AWV Preventative Screening Schedule 2020 Completed 04/28/2023 Care Plan: Echo [facility] : 47967-7 EXT RAD Ordered 04/28/2023 Patient Education: Patient Medication Summary Completed 03/23/2023 Visit Plan: I25.10-414.00 CAD (coronary artery disease) (hx of [...] supplementation, will check Vitamin D level) 03/08/2023 Appointment: Frances Boswell WPtel: [address] [place], [place] [id number] E410 03/08/2023 Patient Education: Patient Medication Summary Completed 03/08/2023 Patient Education: Heart Disease Completed 03/08/2023 Patient Education: Patient Medication Summary Completed 04/27/2022 Patient Education: Heart Disease Completed 04/27/2022 Patient Education: Patient Medication Summary Completed 01/12/2022 Visit Plan: telehealth visit mario Bruno, therefore unable to complete complete PE, only able to document what was actually visible and audible W55.01XA- Bitten by cat, initial encounter S61.169A-842.0 Cat bite of hand bitten by cat 12/30/2021, seen at [facility], started on amoxicillin-clavulanat e discussed benefit of Epsom Salt soaks, at [...] of poorly controlled BP continue with [facility] [employer] Sushil Sesay MD Mediterranean eating encouraged J44.9 COPD (chronic [...] complete reminded patient to call her established bridal stylist sales consultant for mammogram orders- hx of suspicious areas 11/12/20 mammogram: benign 01/05/2022 Appointment: Frances Boswell WPtel: [phone] [facility] [address] [place], [place] [id number] ETV 01/05/2022 Patient Education: Patient Medication Summary Completed 01/05/2022 Visit Plan: R03.0 Elevated blood pressure reading, [...] of poorly controlled BP continue with [employer] Sushil Sesay MD continue Mediterranean eating J44.9 [...] complete reminded patient to call her established bridal stylist sales consultant for mammogram orders- hx of suspicious areas [...] 09/06/21 PHQ9 3 11/12/20 mammogram: benign 12/16/2021 Appointment: Nicanor Man WPtel: [phone] [phone] E410 12/16/2021 Patient Education: [facility] Preventative Screening Schedule 2020 Completed 12/16/2021 Patient Education: Patient Medication Summary Completed 12/16/2021 Patient Education: Heart Disease Completed 12/16/2021 Patient Education: Patient Medication Summary Completed 11/08/2021 Visit Plan: The following plan consists of chronic conditions [...] ST depr., HR 78 continue with [employer] Sushil Sesay MD Mediterranean eating plan provided [...] 09/06/21 PHQ9 3 11/12/20 mammogram: benign 10/07/2021 Appointment: Kevyn Valentin WPtel: [address] [facility] [address] [id number] E410 10/07/2021 Patient Education: COPD Completed 0 10/07/2021 Patient Education: Heart Disease Completed 10/07/2021 Patient Education: Patient Medication Summary Completed 10/07/2021 Care Plan: Specialty Diagnostic Order Ordered 10/07/2021 Visit Plan: F31.10 Bipolar I disorder, most recent episode [...] October 2020 patient reports had Mammogram at [facility] which showed dense breast recomnmending 6 month follow up Z12.11-V76.51 (Z12.11-V76.51) Encounter for screening for malignant neoplasm of colon 09/29/2020 negative Z00.01-V70.0 (Z00.01-V70.0) Encounter for general adult medical examination with abnormal findings 12/16/2020 AWV complete 12/16/2020 ACP reviewed wishes to remain full code 09/06/2021 Appointment: Nicanor Man WPtel: [address] [place], [place] [phone] E410 09/06/2021 Patient Education: Patient Medication Summary Completed 09/06/2021 Patient Education: Anxiety Completed 09/06/2021 Visit Plan: Visit via [employer] F31.10 Bipolar I disorder, most recent episode [...] with ongoing tobacco use encouraged to call [facility]-QUIT NOW if she ever considers quitting Z12.4-V76.2 (Z12.4-V76.2) Encounter for screening for malignant neoplasm of cervix routine follow up gynecology Z12.31-V76.12 (Z12.31-V76.12) Encounter for screening mammogram for malignant neoplasm of breast scheduled for 09/26/2020-didn't keep this appt, 10/27/2020 new referral sent -patient reports had mammogram in October-will request records patient reports had Mammogram at [facility] which showed dense breast recomnmending 6 [...] reviewed wishes to remain full code 05/10/2021 Appointment: Frances Boswell WPtel: [address] [place], [place] [id number] ETV 05/10/2021 Patient Education: Patient Medication Summary Completed 05/10/2021 Visit Plan: Patient with [employer] access able to participate in visual and audio telehealth visit due to poor connectivity with [employer] R07.9-786.50 Chest pain in adult I25.2-412 History [...] with ongoing tobacco use encouraged to call [phone] NOW if she ever considers quitting Z12.4-V76.2 (Z12.4-V76.2) Encounter for screening for malignant neoplasm of cervix routine follow up gynecology Z12.31-V76.12 (Z12.31-V76.12) Encounter for screening mammogram for malignant neoplasm of breast scheduled for 09/26/2020-didn't keep this appt, 10/27/2020 new referral sent -patient reports had mammogram in October-will request records patient reports had Mammogram at [facility] which showed dense breast recomnmending 6 [...] reviewed wishes to remain full code 03/02/2021 Appointment: Frances Boswell WPtel: [address] [place] [address] ETV 03/02/2021 Patient Education: Chest Pain Completed 03/02/2021 Patient Education: Patient Medication Summary Completed 03/02/2021 Patient Education: COPD Completed 0 03/02/2021 Appointment: Naman Villarreal: [address] [address] [place] RLOL 02/10/2021 Appointment: Frances Boswell WPtel: [address] [place] [address] E410 02/03/2021 Patient Education: Patient Medication Summary Completed 02/03/2021 Patient Education: COPD Completed 0 02/03/2021 Patient Education: Chest Pain Completed 02/03/2021 Care Plan: Cardiology Referral SNOMED-CT : [id number] Pending 02/03/2021 Appointment: Fabiola Madsen MCtel: [address] [facility] [place] [id number] [place] ECHO 01/26/2021 Visit Plan: Video and audio call using [employer] R07.9-786.50 Chest pain in adult I25.2-412 History of heart attack 12/05/19 EKG: poor R-wave ant., nonspec. ST depr., HR 78 12/08/2019 Echo EF 60%, mild mod. aortic regurg., mild tricusp. regurg. cardiology referral offered-doesn't want to see same cardiology office seen previously-she is to call office to confirm which [facility] she wants to see Repeat Echocardiogram [...] reviewed wishes to remain full code 01/22/2021 Appointment: Frances Boswell WPtel: [address] [place], [place] [phone] ETV 01/22/2021 Patient Education: Patient Medication Summary Completed 01/22/2021 Patient Education: COPD Completed 0 01/22/2021 Patient Education: Chest Pain Completed 01/22/2021 Visit Plan: R03.0-796.2 Elevated blood pressure reading [...] with ongoing tobacco use encouraged to call [phone] NOW if she ever considers quitting Z12.4-V76.2 [...] reviewed wishes to remain full code 12/16/2020 Appointment: Frances Boswell WPtel: [phone] [phone] [place] E410 12/16/2020 Patient Education: Patient Medication Summary Completed 12/16/2020 Patient Education: COPD Completed 0 12/16/2020 Appointment: Frances Boswell WPtel: [phone] [phone] [place] ETV 10/27/2020 Patient Education: Patient Medication Summary Completed 10/27/2020 Patient Education: COPD Completed 0 10/27/2020 Care Plan: External Mammogram Ordered 10/27/2020 Appointment: Megan Coello: [facility] [address] [place] [id number] [facility] [[email or web address]] 10/08/2020 Visit Plan: M79.641-729.5 Right hand pain reporting [...] 2 ppd, interested in smoking cessation, called [phone]-has paperwork for PCP to fill out advised [...] any form of abuse or neglect 10/07/2020 Appointment: Frances Boswell WPtel: [address] [place] [address] E410 10/07/2020 Patient Education: Patient Medication Summary Completed 10/07/2020 Care Plan: External Mammogram Ordered 10/07/2020 Appointment: Frances Boswell WPtel: [address] [place] [address] ETV 09/11/2020 Patient Education: Patient Medication Summary Completed 09/11/2020 Patient Education: COPD Completed 0 09/11/2020 Visit Plan: J44.9 COPD (chronic obstructive pulmonary [...] 2 ppd, interested in smoking cessation, called [phone]-has paperwork for PCP to fill out advised to contact Office PCC to have paperwork sent for processing Z12.4-V76.2 (Z12.4-V76.2) Encounter for screening for malignant neoplasm of cervix routine follow up gynecology Z12.31-V76.12 (Z12.31-V76.12) Encounter for screening mammogram for malignant neoplasm of breast 09/2019 Reports mammogram negative from [facility]-records requested Z12.11-V76.51 (Z12.11-V76.51) Encounter for screening for malignant neoplasm of colon referral not sent at this time will have MA mail to patient-task sent Z13.9-V82.9 Encounter for screening FRA complete 07/24/2020 Appointment: Frances Boswell WPtel: [address] [place], [place] [phone] ETV 07/24/2020 Patient Education: Patient Medication Summary Completed 07/24/2020 Visit Plan: Patient upset this visit related to cat [...] 2 ppd, interested in smoking cessation, called [phone]-has paperwork for PCP to fill out advised to contact Office PCC to have paperwork sent for processing Z12.4-V76.2 (Z12.4-V76.2) Encounter for screening for malignant neoplasm of cervix routine follow up gynecology Z12.31-V76.12 (Z12.31-V76.12) Encounter for screening mammogram for malignant neoplasm of breast 09/2019 Reports mammogram negative from [facility]-records requested Z12.11-V76.51 (Z12.11-V76.51) Encounter for screening for malignant neoplasm of colon referral not sent at this time will have MA mail to patient-task sent Z13.9-V82.9 Encounter for screening FRA complete 06/26/2020 Appointment: Frances Boswell WPtel: [address] [place] [address] ETV 06/26/2020 Patient Education: Patient Medication Summary Completed 06/26/2020 Patient Education: COPD Completed 1 08/26/2019 Appointment: Frances Boswell WPtel: [address] [place] [address] [place] ETV 05/15/2020 Patient Education: Patient Medication Summary Completed 05/15/2020 Patient Education: COPD Completed 1 Visit Plan: I25.2 History of hea rt [...] 2 ppd, interested in smoking cessation, called [phone]-has paperwork for PCP to fill out advised to contact Office PCC to have paperwork sent for processing Z12.4-V76.2 (Z12.4-V76.2) Encounter for screening for malignant neoplasm of cervix routine follow up gynecology Z12.31-V76.12 (Z12.31-V76.12) Encounter for screening mammogram for malignant neoplasm of breast 09/2019 Reports mammogram negative from [facility]-records requested Z12.11-V76.51 (Z12.11-V76.51) Encounter for screening for malignant neoplasm of colon referral not sent at this time will have MA mail to patient-task sent Z13.9-V82.9 Encounter for screening FRA complete 04/21/2020 Appointment: Frances Boswell WPtel: [address] [place] [address] E410 04/21/2020 Patient Education: Patient Medication Summary Completed 04/21/2020 Patient Education: COPD Completed 0 04/21/2020 Visit Plan: I25.2 History of hea rt [...] 2 ppd, interested in smoking cessation, called [phone]-has paperwork for PCP to fill out advised to contact Office PCC to have paperwork sent for processing Z12.4-V76.2 (Z12.4-V76.2) Encounter for screening for malignant neoplasm of cervix referral for gynecology Z12.31-V76.12 (Z12.31-V76.12) Encounter for screening mammogram for malignant neoplasm of breast 09/2019 Reports mammogram negative from [facility]-records requested Z12.11-V76.51 (Z12.11-V76.51) Encounter for screening for malignant neoplasm of colon referral not sent at this time will send later this fall after she turns 50 03/02/2020 Appointment: Frances Boswell WPtel: [address] [place] [address] E410 03/02/2020 Patient Education: Patient Medication Summary Completed 03/02/2020 Patient Education: COPD Completed 0 03/02/2020 Care Plan: Overnight Pulse ox Ordered 03/02/2020 Visit Plan: patient refused to answer call because provider was 15 minutes late with call. Refused to reschedule PM to speak with patient. 12/31/2019 Appointment: Frances Boswell WPtel: [phone] E410 12/31/2019 Patient Education: Patient Medication Summary Completed 12/31/2019 Patient Education: COPD Completed 0 12/31/2019 Patient Education: Patient Medication Summary Completed 12/07/2019 Visit Plan: I25.2 History of hea rt [...] psychiatry Medical records requested from physicians 12/05/2019 Appointment: Kevyn Valentin WPtel: [address] [facility] [address] [id number] N410 12/05/2019 Patient Education: Patient Medication Summary Completed 12/05/2019 Referral: Pending Mental Health Services Referral Information Patient notified that it has been recommended that she be seen by Mental Health. Patient agreed to be seen and prefers to be seen close to home. Patient does not have any transportation issues. After trying multiple providers in the area, policy writer typist spoke with Caryl at [facility] who states that they are able to accept new patient's. Caryl asked that patient's referral and visit notes be faxed to [phone]. Utilization Management Rn faxed over requested documents. Patient to call to schedule an appointment. Patient's referral confirmation letter mailed to her home address. Processed Referral: Pending Cardiology Referral Information Patient requesting to be seen by Cardiology. Patient denies any concerns with transportation, and prefers to schedule her own appointment. Utilization Management Rn faxed over the patient's referral, most recent clinical notes, most recent echo and most recent EKG to F: . Patient to call to schedule her appointment. Appointment confirmation letter mailed to the patient's home address. CCDA completed. Initiated Referral: Pending Referral Source Referral Request CCDA Referral: Pending Nephrology Referral Information Patient requesting to be seen by a Home Inspector. Patient agreed to be seen and does not have a preferred provider. Patient denies any concerns with transportation. Utilization Management Rn placed a call out to [facility] office at and confirmed that their office is able to accept new patients. Utilization Management Rn faxed over the patient's referral, clinical notes, [...] prefers a provider close to her home. Utilization Management Rn placed a call out to [facility] P: , but was told by Won that their office is not able to accept new patients. Utilization Management Rn then called [facility] and spoke with Yusra who asked that the patient's referral, and clinical notes be faxed to . Utilization Management Rn faxed over the requested documents. Patient to call to schedule her appointment. Appointment confirmation letter mailed to the patient's home address. CCDA completed. Processed Referral: Pending Cardiology Referral Information Patient notified that it has been advised that she be seen by a Wirer Maintenance. Patient agreed to be seen and prefers to be seen by any provider that is close to her home. Patient denies any concerns with transportation, and prefers to schedule her own appointment. Utilization Management Rn placed a call out to [facility] Cardiology and spoke with Alvina P: who confirmed that their office is able to accept new patients and the patient's insurance. After confirming the providers fax number, policy writer typist faxed over the patient's referral, and most [...] but prefers to stay close to home. Utilization Management Rn placed a call out to [facility] and confirmed that they are able to accept new patient's and the patient's insurance. Patient does not have any transportation issues. Utilization Management Rn faxed over patient's referral and clinical notes [...] and prefers to schedule her own appointment. Utilization Management Rn placed a call out to [facility] and spoke with Guadalupe P: who confirmed that their office is able to accept new patients and the patient's insurance. After confirming the providers fax number, policy writer typist faxed over the patient's referral, xrays, and [...] by gynecology 06/07/2023, u/s pelvic with transvaginal 06/16)supervisor doping note reviewed 06/09/2023 . Visit time spent involved in medical [...] encouraged to complete FOBT left previously) 04/28/2023 . I25.10-414.00 CAD (coronary artery disease) (hx [...] supplementation, will check Vitamin D level) 03/08/2023 Will stratify as moderate ri sk and plan follow up in 6 weeks. Patient hung up before provider was able to review planned return visit. . telehealth visit using [employer], therefore unable to complete complete PE, only able to document what was actually visible and audible W55.01XA- Bitten by cat, initial encounter; S61.919A-882.0 Cat bite of hand bitten by cat 12/30/2021, seen at [facility], started on amoxicillin-clavulanate discussed benefit of Epsom [...] of poorly controlled BP continue with [facility] [facility] Sushil Sesay MD; Mediterranean eating encouraged; J44.9 [...] complete reminded patient to call her established bridal stylist sales consultant for mammogram orders- hx of suspicious areas 11/12/20 mammogram: benign; 01/05/2022 . R03.0 Elevated blood press ure reading, [...] of poorly controlled BP continue with [facility] Sushil Sesay MD; continue Mediterranean eating; J44.9 [...] complete reminded patient to call her established bridal stylist sales consultant for mammogram orders- hx of suspicious areas [...] 09/06/21 PHQ9 3; 11/12/20 mammogram: benign; 12/16/2021 Assessment and plan reviewed ; . The [...] ST depr., HR 78; continue with [employer] Sushil Sesay MD; Mediterranean eating plan provided; [...] 09/06/21 PHQ9 3; 11/12/20 mammogram: benign; 10/07/2021 . F31.10 Bipolar I disorder, most recent [...] remains in precontemplative phase, left information for 1800-QUIT NOW to consider quitting discussed use of [...] October 2020 patient reports had Mammogram at [facility] which showed dense breast recomnmending 6 month follow up Z12.11-V76.51 (Z12.11-V76.51) Encounter for screening for malignant neoplasm of colon 09/29/2020 negative Z00.01-V70.0 (Z00.01-V70.0) Encounter for general adult medical examination with abnormal findings 12/16/2020 AWV complete 12/16/2020 ACP reviewed wishes to remain full code 09/06/2021 . Visit via [employer] F31.10 Bipolar I disorder, most recent episode [...] with ongoing tobacco use encouraged to call [phone] if she ever considers quitting Z12.4-V76.2 (Z12.4-V76.2) Encounter for screening for malignant neoplasm of cervix routine follow up gynecology Z12.31-V76.12 (Z12.31-V76.12) Encounter for screening mammogram for malignant neoplasm of breast scheduled for 09/26/2020-didn't keep this appt, 10/27/2020 new referral sent -patient reports had mammogram in October-will request records patient reports had Mammogram at [facility] which showed dense breast recomnmending 6 [...] reviewed wishes to remain full code 05/10/2021 Assessment and plan reviewed ; . Patient with [employer] access able to participate in visual and audio telehealth visit due to poor connectivity with [employer] R07.9-786.50 Chest pain in adult; I25.2-412 History [...] following with psychiatry would be interested in if provider would come to the home E55.9-268.9 Vitamin D deficiency continue supplementation encourage sunshine as tolerated F17.210-305.1 (F17.210-305.1) Nicotine dependence, cigarettes, uncomplicated 12/16/2020 Tobacco Assessment complete Currently smokes 2 ppd, not interested in smoking cessation, Discussed health risk associated with ongoing tobacco use encouraged to call [phone] if she ever considers quitting Z12.4-V76.2 (Z12.4-V76.2) Encounter for screening for malignant neoplasm of cervix routine follow up gynecology Z12.31-V76.12 (Z12.31-V76.12) Encounter for screening mammogram for malignant neoplasm of breast scheduled for 09/26/2020-didn't keep this appt, 10/27/2020 new referral sent -patient reports had mammogram in October-will request records patient reports had Mammogram at [facility] which showed dense breast recomnmending 6 [...] reviewed wishes to remain full code 03/02/2021 Assessment and plan reviewed ; . Video and audio call using [employer] R07.9-786.50 Chest pain in adult; I25.2-412 History of heart attack 12/05/19 EKG: poor R-wave ant., nonspec. ST depr., HR 78; 12/08/2019 Echo EF 60%, mild mod. aortic regurg., mild tricusp. regurg. cardiology referral offered-doesn't want to see same cardiology office seen previously-she is to call office to confirm which [facility] she wants to see Repeat Echocardiogram [...] with ongoing tobacco use encouraged to call [phone] if she ever considers quitting Z12.4-V76.2 [...] reviewed wishes to remain full code 01/22/2021 Assessment and plan reviewed ; . R03.0-796.2 [...] with ongoing tobacco use encouraged to call [phone] if she ever considers quitting Z12.4-V76.2 [...] reviewed wishes to remain full code 12/16/2020 Assessment and plan reviewed ; . M79.641-729.5 [...] 2 ppd, interested in smoking cessation, called [phone]-has paperwork for PCP to fill out advised to contact Office P[facility] to have paperwork sent for processing-will address paperwork at next month at home visit Z12.4-V76.2 (Z12.4-V76.2) Encounter for screening for malignant neoplasm of cervix routine follow up gynecology Z12.31-V76.12 (Z12.-V76.12) Encounter for screening mammogram for malignant neoplasm of breast scheduled for 09/26/2020-didn't keep this appt, new referral sent Z12.11-V76.51 (Z12.11-V76.51) Encounter for screening for malignant neoplasm of colon will have [place] mail to patient-task sent Z13.9-V82.9 Encounter for screening 09/11/2020 Maltreatment assessment complete-patient denies any form of abuse or neglect 10/07/2020 Assessment and plan reviewed ; . J44.9 [...] 2 ppd, interested in smoking cessation, called [phone]-has paperwork for PCP to fill out advised to contact Office PCC to have paperwork sent for processing Z12.4-V76.2 (Z12.4-V76.2) Encounter for screening for malignant neoplasm of cervix routine follow up gynecology Z12.31-V76.12 (Z12.31-V76.12) Encounter for screening mammogram for malignant neoplasm of breast 09/2019 Reports mammogram negative from [facility]-records requested Z12.11-V76.51 (Z12.11-V76.51) Encounter for screening for malignant neoplasm of colon referral not sent at this time will have [place] mail to patient-task sent Z13.9-V82.9 Encounter for screening FRA complete 07/24/2020 Assessment and plan reviewed ; . Patient [...] 2 ppd, interested in smoking cessation, called [phone]-has paperwork for PCP to fill out advised to contact Office PCC to have paperwork sent for processing Z12.4-V76.2 (Z12.4-V76.2) Encounter for screening for malignant neoplasm of cervix routine follow up gynecology Z12.31-V76.12 (Z12.31-V76.12) Encounter for screening mammogram for malignant neoplasm of breast 09/2019 Reports mammogram negative from [facility]-records requested Z12.11-V76.51 (Z12.11-V76.51) Encounter for screening for malignant neoplasm of colon referral not sent at this time will have [place] mail to patient-task sent Z13.9-V82.9 Encounter for screening FRA complete 06/26/2020 Assessment and plan reviewed ; . I25.2 [...] 2 ppd, interested in smoking cessation, called [phone]-has paperwork for PCP to fill out advised to contact Office PCC to have paperwork sent for processing Z12.4-V76.2 (Z12.4-V76.2) Encounter for screening for malignant neoplasm of cervix routine follow up gynecology Z12.31-V76.12 (Z12.31-V76.12) Encounter for screening mammogram for malignant neoplasm of breast 09/2019 Reports mammogram negative from [facility]-records requested Z12.11-V76.51 (Z12.11-V76.51) Encounter for screening for malignant neoplasm of colon referral not sent at this time will have [place] mail to patient-task sent Z13.9-V82.9 Encounter for screening FRA complete 04/21/2020 . I25.2 History of heart att ack, [...] 2 ppd, interested in smoking cessation, called [phone]-has paperwork for PCP to fill out advised to contact Office PCC to have paperwork sent for processing Z12.4-V76.2 (Z12.4-V76.2) Encounter for screening for malignant neoplasm of cervix referral for gynecology Z12.31-V76.12 (Z12.31-V76.12) Encounter for screening mammogram for malignant neoplasm of breast 09/2019 Reports mammogram negative from [facility]-records requested Z12.11-V76.51 (Z12.11-V76.51) Encounter for screening for malignant neoplasm of colon referral not sent at this time will send later this fall after she turns 50 03/02/2020 . patient refused to answer call because provider was 15 minutes late with call. Refused to reschedule PM to speak with patient. 12/31/2019 Assessment and plan reviewed ; . I25.2 [...]
--- NOTE | 2025-05-21 16:43 | PM.STRESS ---
Stress Test Stress Test Requesting physician: TRESA RENO Procedure: EKG stress test General Information: Reason for Stress Test: Chest pain and lung cancer Cardiac History and Risk Factors: Prior [place] and coronary stenting Resting 12 - Lead Electrocardiogram: Normal sinus rhythm, rightward axis, non specific STT wave changes inferolateral leads Stress Test: Protocol: Brian Exercise Capacity: Excellent, achieved 10 minutes to 13.4 METs Blood Pressure Response: Normal Rhythm: Normal, no arrythmias seen ST - Response: At peak exercise there ws horizontal and downsloping ST depression >1 mm in inferolateral leads that resolved in recovery Patient Response: Short of breath without chest pain Interpretation: Excellent exercise capacity without exercise induced symptoms of chest pain. There are ischemic appearing EKG changes at a high workload however, these occur on a background of baseline STT wave changes and are consistent but not diagnostic for coronary ischemia.
== END 2025-05-21 15:11 | disposition home or self-care (01) ==
LOC: CARD 15:10
PROVIDERS: PCP Nurse Practitioner Family; Visit Provider Internal Medicine Cardiovascular Disease
DX: R07.89 Other chest pain (principal)
CPT/HCPCS: 93017